=== PATIENT | female | born 1965 | race Caucasian/White ===

== ENCOUNTER 2020-10-12 19:08 | Inpatient (IN) | payer MEDICAID, OTHER, SELFPAY ==
[2020-10-12 19:28] VITALS: BP 132/76; BP 140/85; PULSE 85; PULSE 87; RESP 16; TEMP 36.9; O2SAT 99; BMI 28.3
--- NOTE | 2020-10-12 19:59 | ECG_ITS ---
Test Reason : OVERDOSE Blood Pressure : / mmHG Vent. Rate : 081 BPM Atrial Rate : 081 BPM P-R Int : 114 ms QRS Dur : 088 ms QT Int : 400 ms P-R-T Axes : 039 040 015 degrees QTc Int : 464 ms Normal sinus rhythm Normal ECG When compared with ECG of 20-AUG-2020 09:46, Nonspecific T wave abnormality, improved in Lateral leads Referred By: Leroy Andrews Electronically Signed By:DANE GOLDMAN MD
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
[2020-10-12 20:26] LABS: MANUAL DIFF FLAG NO
[2020-10-12 20:34] LABS: Glucose Urine UA NEG (NEG); Leukocyte Esterase Urine NEG (NEG); Nitrite Urine NEG (NEG); PH 5.5 (5.0-8.0); Urine Blood 3+ (NEG); Urine Ketones NEG (NEG); Urine Protein NEG (NEG-TRACE)
[2020-10-12 20:35] LABS: Appearance Urine HAZY; Color Urine YELLOW
[2020-10-12 20:36] LABS: UPreg QC Valid YES; Urine Pregnancy NEGATIVE (NEGATIVE)
[2020-10-12 20:37] LABS: Basophils Percent Auto 0.2 % (0-2); Eosinophils Percent Auto 0.6 % (0-4); Hematocrit 33.8 % (37-47); Hemoglobin 10.8 g/dl (12.0-16.0); Imm Gran Abs Auto 0.04 X10*3/uL (0.00-0.03); Imm Gran Pct Auto 0.8 % (0.0-0.4); Lymphocytes Absolute Auto 1.8 X10*3/uL (1.2-4.9); Lymphocytes Percent Auto 34.3 % (20-40); Mean Corpuscular Hemoglobin 29.6 pg (27.0-33.0); Mean Corpuscular Volume 92.6 fL (80-98); Mean Platelet Volume 10.3 fL (9.4-12.3); Monocytes Absolute Auto 0.4 X10*3/uL (0.1-1.2); Monocytes Percent Auto 8.3 % (2-11); Neutrophils Percent Auto 55.8 % (45-73); Platelet Count 205 X10*3/uL (160-400); Red Blood Count 3.65 X10*6/uL (4.20-5.50); Red Cell Distribution Width 13.4 % (11.0-16.0); White Blood Count 5.3 X10*3/uL (4.8-10.8)
[2020-10-12 20:39] LABS: COVID-19 Test Negative (Negative); IDNOW Serial# 9DD0AD1C
[2020-10-12 20:41] LABS: Bacteria Urine TRACE /LPF; RBC Urine 50-75 /HPF (0); Squamous Epithelial Cell Urine TRACE /LPF; WBC Urine 0 /HPF (0-4)
[2020-10-12 20:54] LABS: Ethanol < 10 mg/dL
[2020-10-12 20:54] LABS: Amphetamine Screen Urine Not Detected (Not Detect); Barbiturates, Urine Not Detected (Not Detect); Benzodiazepines Screen Urine Not Detected (Not Detect); Cannabinoid Screen Urine Not Detected (Not Detect); Cocaine Screen Urine Not Detected (Not Detect); Opiate Screen Urine Not Detected (Not Detect); Phencyclidine Screen Urine Not Detected (Not Detect)
[2020-10-12 20:57] LABS: Acetaminophen LAB < 1 mcg/mL (<30); Alanine Aminotransferase 25 U/L (0-31); Albumin Level 4.3 g/dL (3.5-5.0); Alkaline Phosphatase 80 U/L (39-117); Anion Gap 12 (12-20); Aspartate Amino Transferase 28 U/L (5-31); Bilirubin Direct < 0.2 mg/dL (0.0-0.5); Bilirubin Total 0.4 mg/dL (0.0-1.0); Blood Urea Nitrogen 6 mg/dL (9-16); Calcium 8.4 mg/dL (8.4-10.2); Carbon Dioxide 27 mmol/L (22-29); Chloride 105 mmol/L (96-108); Creatinine Clr Calc Pharmacy 93.6; Estimated Glomerular Filt Rate > 60; Glucose Random 106 mg/dL (60-115); Lipase 13 U/L (8-78); Potassium 4.3 mmol/l (3.3-5.1); Salicylate < 5.0 mg/dL (15-30); Sodium 140 mmol/L (135-145); Total Protein 8.1 g/dL (6.5-8.0)
[2020-10-12 21:53] VITALS: BP 112/71; PULSE 74; RESP 17; O2SAT 98
[2020-10-12 22:00] VITALS: RESP 17
[2020-10-12] MEDS: QUEtiapine Fumarate 400 MG TABLET PO (23:17)
--- NOTE | 2020-10-12 23:34 | PC.NURSE ---
Patient in bed resting, compliant with HS PO medication, denied distress, was out of room for bathroom use earlier, will continue to monitor.
--- NOTE | 2020-10-12 23:47 | PC.NURSE ---
[facility] called and spoke with Sheron who confirmed receipt of the referral, no eta at this time, Care team called/notified that they might see the patient if [facility]N dont come, will continue to monitor.
[2020-10-13] VITALS (8 sets, daily range): BP systolic 107–136; BP diastolic 52–82; PULSE 70–85; RESP 15–20; TEMP 36.3–36.9; O2SAT 96–99
--- NOTE | 2020-10-13 00:32 | MHC.CARE ---
CARE Team speaks with VIDA Lyons supervisor farm equipment maintenance. No clinician is available tonight and pt will be seen in the morning. CARE Team unable to see.
--- NOTE | 2020-10-13 01:16 | PC.NURSE ---
Patient in bed appears sleeping, no distress observed/reported, respiration +/=/non-labored bilaterally, will continue to monitor.
--- NOTE | 2020-10-13 05:00 | PC.NURSE ---
LATE ENTRY Pt comes from home via EMS for SI. Pt only speak Turkish, and staff technologist was used for triage and assessment. Pt had a plan with overdose of her current medication. Took ? 2-3 tablets of Klonopin 1 mg PO,, and seroquel 400 mg. Immediate 1:1 sittAt arrival, pt was drowsy and c/o headache. EKG done. Called poison control center for guideline. 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 MD made aware. All the w/u done around 2100, and pt status changed to medically cleared. Pt walked to the behavioral health pod with steady gait. pt brought klonopin and seroquel. All meds are locked up in pharmacy. Faxed to [facility] for consult, and [facility] received the fax. Awaiting to be seen and evulated by [facility]. Will continue to monitor.
--- NOTE | 2020-10-13 07:31 | PC.NURSE ---
Report received from DEE Schrader. Pt resting, resp unlabored.
[2020-10-13] MEDS: clonazePAM 1 MG TABLET PO ×3 (08:24→20:49)
--- NOTE | 2020-10-13 08:33 | PC.NURSE ---
[facility]N in to evaluate pt.
[2020-10-13] MEDS: Levothyroxine Sodium 25 MCG TABLET PO (09:00)
--- NOTE | 2020-10-13 09:49 | PC.NURSE ---
Pt assessed w/ scheduling agent present. Pt reports she is having 'bad thoughts' but states she can come to staff if she feels she needs help or is unsafe. Pt reports generalized pain, states she has her menses. Pt also requesting a dietary supplement, states she has no appetite at this time.
[2020-10-13] MEDS: Acetaminophen 325 MG TABLET 650 MG PO (09:58)
--- NOTE | 2020-10-13 13:19 | PC.NURSE ---
Pt resting, resp unlabored.
--- NOTE | 2020-10-13 17:48 | PC.NURSE ---
Pt awake, out of bed briefly to request snack. Affect depressed. No concerns reported.
--- NOTE | 2020-10-13 18:12 | PC.NURSE ---
Pt resting in room, no concerns reported.
--- NOTE | 2020-10-13 19:31 | PC.NURSE ---
Patient in bed appears resting, no distress observed/reported, was up briefly for bathroom use and back to bed, will continue to monitor.
[2020-10-13] MEDS: QUEtiapine Fumarate 200 MG TABLET PO (20:49)
[2020-10-13] MEDS: QUEtiapine Fumarate 400 MG TABLET PO (20:49)
--- NOTE | 2020-10-13 20:58 | PC.NURSE ---
Patient in her room, quiet and calm, compliant with HS PO medication and Vital sings assessment, denied distress, will continue to monitor.
[2020-10-14] VITALS (9 sets, daily range): BP systolic 99–133; BP diastolic 58–86; PULSE 63–98; RESP 18–20; TEMP 36.1–36.8; O2SAT 95–98
--- NOTE | 2020-10-14 01:36 | PC.NURSE ---
Patient in bed appears sleeping, no distress observed/reported, respiration +/=/non-labored bilaterally, will continue to monitor.
--- NOTE | 2020-10-14 07:14 | PC.NURSE ---
Report received from DEE Schrader. Pt awake, resting in bed, affect even.
[2020-10-14] MEDS: Levothyroxine Sodium 25 MCG TABLET PO (09:15)
[2020-10-14] MEDS: clonazePAM 1 MG TABLET PO ×3 (09:15→20:27)
--- NOTE | 2020-10-14 09:22 | PC.NURSE ---
Pt given AM medications- requested to shower- residential case manager called but arrived while pt was showering.
[2020-10-14] MEDS: Acetaminophen 325 MG TABLET 650 MG PO (12:20)
--- NOTE | 2020-10-14 12:21 | PC.NURSE ---
Pt assessed w/ cyber operator present. Pt reports she is feeling a little better physuically but reports continued depression, no change. Pt denies any other concerns at this time.
--- NOTE | 2020-10-14 15:43 | XR_ITS ---
EXAMINATION: THORACIC AND LUMBAR SPINE CLINICAL INFORMATION: Upper and lower back pain without trauma COMPARISON: Chest radiograph 06/26/2020 TECHNIQUE: 3 views lumbosacral spine, 2 views thoracic spine FINDINGS: Thoracic spine: The thoracic spine appears normal. Disc spaces are well maintained. No compression fractures are seen. No bony destructive lesions are seen. The visualized paraspinal soft tissues appear normal. Lumbar spine: Mild spondylitic changes are present with some endplate sclerosis and osteophytes involving L2-L5. Disc spaces are well preserved. No bony destructive lesions are seen. Multiple linear metallic densities are seen overlying the mid and lower right abdomen on the AP image which are not seen on the lateral image. Please correlate with surgical history and external objects. XR/XR thoracic spine 2V IMPRESSION: A cause for the patient's acute upper lower back pain has not been found. Mild degenerative changes in the lumbosacral spine as described above.
--- NOTE | 2020-10-14 15:43 | PC.NURSE ---
Pt reporting upper back pain, states she has a 'hair pin' that she inserted many years, states that the pain has increased in the past 2 months. A Myriam in to evaluate. Trans Router present.
--- NOTE | 2020-10-14 16:22 | XR_ITS ---
EXAMINATION: THORACIC AND LUMBAR SPINE CLINICAL INFORMATION: Upper and lower back pain without trauma COMPARISON: Chest radiograph 06/26/2020 TECHNIQUE: 3 views lumbosacral spine, 2 views thoracic spine FINDINGS: Thoracic spine: The thoracic spine appears normal. Disc spaces are well maintained. No compression fractures are seen. No bony destructive lesions are seen. The visualized paraspinal soft tissues appear normal. Lumbar spine: Mild spondylitic changes are present with some endplate sclerosis and osteophytes involving L2-L5. Disc spaces are well preserved. No bony destructive lesions are seen. Multiple linear metallic densities are seen overlying the mid and lower right abdomen on the AP image which are not seen on the lateral image. Please correlate with surgical history and external objects. XR/XR lumbar spine 2-3V IMPRESSION: A cause for the patient's acute upper lower back pain has not been found. Mild degenerative changes in the lumbosacral spine as described above.
[2020-10-14] MEDS: Ketorolac Tromethamine 60 MG/2 ML VIAL IM (16:42)
--- NOTE | 2020-10-14 17:09 | PC.NURSE ---
Late entry: while pt was being evaluated by [facility] she reported pain in upper back, lower right flank area. Stated that she had a hair pin in her back. A Myriam in to evaluate, pt then to xray. Received pain medication as ordered. Educated re: xray and pain medication w/ project designer present.
--- NOTE | 2020-10-14 19:14 | PC.NURSE ---
Patient in bed, lying, quiet and calm, pt was up briefly for bathroom use and back, no distress observed/reported at this time. per report patient had decent shift. will continue to monitor
[2020-10-14] MEDS: QUEtiapine Fumarate 400 MG TABLET PO (20:27)
[2020-10-14] MEDS: QUEtiapine Fumarate 200 MG TABLET PO (20:27)
[2020-10-15 06:41] VITALS: BP 112/68; PULSE 69; RESP 16; TEMP 36.4; O2SAT 99
[2020-10-15] MEDS: clonazePAM 1 MG TABLET PO ×3 (08:57→21:14)
[2020-10-15] MEDS: Levothyroxine Sodium 25 MCG TABLET PO (09:02)
[2020-10-15 09:23] VITALS: BP 128/79; PULSE 69; RESP 18; TEMP 37.1; O2SAT 99
--- NOTE | 2020-10-15 15:52 | PC.NURSE ---
Report received. Pt currently using the bathroom, no complaints at this time. Calm and cooperative.
[2020-10-15 16:11] VITALS: BP 120/78; PULSE 78; RESP 18; TEMP 36.9; O2SAT 99
--- NOTE | 2020-10-15 17:38 | PC.NURSE ---
Pt resting in bed at current, no complaints at this time. Calm and cooperative.
[2020-10-15] MEDS: Acetaminophen 325 MG TABLET 650 MG PO (17:58)
--- NOTE | 2020-10-15 19:10 | PC.NURSE ---
Report received. PT is sleeping in bed. Breathing is even and unlabored. Inpatient bed search in progress.
[2020-10-15 20:23] VITALS: BP 127/79; PULSE 68; RESP 20; TEMP 36.8; O2SAT 97
[2020-10-15] MEDS: QUEtiapine Fumarate 200 MG TABLET PO (21:14)
[2020-10-15] MEDS: QUEtiapine Fumarate 400 MG TABLET PO (21:14)
--- NOTE | 2020-10-16 07:02 | PC.NURSE ---
Report recieved. PT currently sleeping respirations even and unlabored, in no apparent distress. PT is inpatient bedsearch.
[2020-10-16 07:05] VITALS: BP 100/63; PULSE 72; RESP 18; TEMP 36.5; O2SAT 95
[2020-10-16] MEDS: clonazePAM 1 MG TABLET PO ×3 (09:09→20:10)
[2020-10-16] MEDS: Levothyroxine Sodium 25 MCG TABLET PO (09:13)
[2020-10-16 09:43] VITALS: BP 117/82; PULSE 78; RESP 18; TEMP 36.7; O2SAT 96
[2020-10-16 16:28] VITALS: BP 128/68; PULSE 73; RESP 16; TEMP 36.9; O2SAT 97
[2020-10-16 18:00] VITALS: BP 154/81; PULSE 96; TEMP 36.6
[2020-10-16] MEDS: Acetaminophen 325 MG TABLET 650 MG PO (19:09)
[2020-10-16] MEDS: Magnesium Hydrox/Alum Hydrox 30 ML ORAL.SUSP PO (19:10)
--- NOTE | 2020-10-16 19:15 | PC.ADMIT ---
pt is a 54 year old, Welsh speaking Israeli female who presented to from [facility] at approx 1800 on a cv status. pt is covid -. utox- Pt is known to . Pt was brought to ED by ambulance from home after she reported to her daughter that she overdosed on medications. Pt said that she took 400mg of Seroquel and one to two extra Clonazepam. Pt does not have any outpatient services. She was calm and cooperative during admit. She reported that she was hearing voices to harm herself. pt diagnosed with bipolar disorder. pt had superficial scrapes on LT outter forearm that do not need any dressings.Dr Aldana called for orders and notified on admission. PT is on 15min safety checks. Pt reported that she did not want any dinner and was preoccupied with wanting to call family members. pt denied pain, had clear thought. Start treatment plan and monitor for safety
[2020-10-16] MEDS: QUEtiapine Fumarate 400 MG TABLET PO (20:10)
[2020-10-16] MEDS: QUEtiapine Fumarate 200 MG TABLET PO (20:10)
[2020-10-17 06:45] VITALS: BP 112/64; PULSE 74; RESP 18; TEMP 36.7
[2020-10-17] MEDS: Levothyroxine Sodium 25 MCG TABLET PO (08:16)
[2020-10-17] MEDS: clonazePAM 1 MG TABLET PO ×3 (08:18→20:21)
[2020-10-17 08:38] LABS: Estimated Average Glucose 103 mg/dL; Hemoglobin A1c % 5.2 %
[2020-10-17 09:13] LABS: Cholesterol 209 mg/dL; HDL Cholesterol 57 mg/dL; LDL Cholesterol Calculated 135 mg/dl; Triglycerides 85 mg/dL
[2020-10-17] MEDS: QUEtiapine Fumarate 100 MG TABLET PO (10:50)
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
[2020-10-17 18:00] VITALS: BP 144/75; PULSE 77; TEMP 36.2
[2020-10-17 20:20] VITALS: BP 144/75; PULSE 77
[2020-10-17] MEDS: cloNIDine HCL 0.1 MG TABLET PO (20:20)
[2020-10-17] MEDS: QUEtiapine Fumarate 400 MG TABLET PO (20:20)
[2020-10-17] MEDS: QUEtiapine Fumarate 200 MG TABLET PO (20:21)
[2020-10-18 08:35] VITALS: BP 116/70; PULSE 75; TEMP 37.1; O2SAT 100
[2020-10-18 08:45] VITALS: BP 117/70; PULSE 75
[2020-10-18] MEDS: Levothyroxine Sodium 25 MCG TABLET PO (08:45)
[2020-10-18] MEDS: cloNIDine HCL 0.1 MG TABLET PO ×3 (08:45→20:50)
[2020-10-18] MEDS: QUEtiapine Fumarate 100 MG TABLET PO (08:45)
[2020-10-18] MEDS: clonazePAM 1 MG TABLET PO ×3 (08:45→20:50)
[2020-10-18 09:17] VITALS: BMI 30.9
--- NOTE | 2020-10-18 13:22 | P.PNPSI_ITS ---
Subjective Subjective Date of Service: 10/18/20 Reason For Visit: Overdose Subjective Notes: Conditional Voluntary Interim History: Paulo is content and keeping to herself. She is polite and cooperative. She reports that she would like to leave on 10/23/20, since she will get her check then and she wants to go to [place]. Medication Compliance: Yes Side effects from medications: No Attending Groups: No Review of Systems Acute medical concerns: No Medical Review of Systems: unchanged Mental Status Exam Mental Status Exam Narrative: Seen with an it infrastructure consultant Patient Appearance: Well Grooomed Patient Orientation: Person, Place and Time Level of Consciousness: Awake Patient Behavior: Appropriate Mood Description: Calm Affect Description: Calm and Withdrawn Patient Cognition Impaired: No Ability to Follow Directions: Good Speech Pattern: Clear Memory Description: Intact Hallucinations: None Delusions: Not Present Thought Process: Intact Thought Content: negative for Suicidal Ideation and negative for Homicidal Ideation Judgement: Fair Diagnostics Vital Signs (24Hr): Vital Signs - 24 hr 10/17/20 18:00 10/17/20 20:20 10/18/20 08:35 Temperature 97.1 F 98.8 F Pulse Rate 77 77 75 Blood Pressure 144/75 H 144/75 H 116/70 Pulse Oximetry 100 10/18/20 08:45 Temperature Pulse Rate 75 Blood Pressure 117/70 Pulse Oximetry Body Mass Index 30.9 Labs Results: 10/12/20 20:16 10/12/20 20:15 Labs: Laboratory Results - last 48 hr 10/17/20 10/17/20 08:00 08:00 Estimat Average Glucose 103 Hemoglobin A1c % 5.2 Triglycerides 85 Cholesterol 209 LDL Cholesterol, Calc 135 HDL Cholesterol 57 Imaging Radiology Impressions: ITS Impressions Thoracic Spine X-Ray 10/14/20 15:43 IMPRESSION: A cause for the patient's acute upper lower back pain has not been found. Mild degenerative changes in the lumbosacral spine as described above. Lumbar Spine X-Ray 10/14/20 16:22 IMPRESSION: A cause for the patient's acute upper lower back pain has not been found. Mild degenerative changes in the lumbosacral spine as described above. Medications Medications Current Medications Generic Name Dose Route Start Last Admin Trade Name Freq PRN Reason Stop Dose Admin Acetaminophen 650 mg 10/16/20 17:40 10/16/20 19:09 Acetaminophen 325 Mg Tablet PO 650 mg Q6H PRN Administration Headache/Pain Mild Scale (1-3) Al Hydroxide/Mg Hydroxide 30 ml 10/16/20 17:40 10/16/20 19:10 Magnesium Hydrox/Alum Hydrox 30 Ml Oral.Susp PO 30 ml Q6H PRN Administration Heartburn/Nausea Clonazepam 1 mg 10/13/20 09:00 10/18/20 08:45 Clonazepam 1 Mg Tablet PO 1 mg TID ALEKSANDRA Administration Clonidine HCl 0.1 mg 10/18/20 09:00 10/18/20 08:45 Clonidine Hcl 0.1 Mg Tablet PO 0.1 mg TID ALEKSANDRA Administration Protocol Hydroxyzine HCl 25 mg 10/16/20 17:40 Hydroxyzine Hcl 25 Mg Tablet PO BEDTIME PRN Anxiety Levothyroxine Sodium 25 mcg 10/13/20 09:00 10/18/20 08:45 Levothyroxine Sodium 25 Mcg Tablet PO 25 mcg DAILY ALEKSANDRA Administration Magnesium Hydroxide 30 ml 10/16/20 17:40 Milk Of Magnesia 30 Ml Oral.Susp PO DAILY PRN Constipation Nicotine Polacrilex 4 mg 10/16/20 17:40 Nicotine Polacrilex 2 Mg Gum BUCCAL Q2H PRN Nicotine Cravings Quetiapine Fumarate 200 mg 10/13/20 21:00 10/17/20 20:21 Quetiapine Fumarate 200 Mg Tablet PO 200 mg BEDTIME ALEKSANDRA Administration Quetiapine Fumarate 400 mg 10/12/20 22:15 10/17/20 20:20 Quetiapine Fumarate 400 Mg Tablet PO 400 mg BEDTIME ALEKSANDRA Administration Quetiapine Fumarate 100 mg 10/17/20 10:35 10/18/20 08:45 Quetiapine Fumarate 100 Mg Tablet PO 100 mg DAILY ALEKSANDRA Administration Trazodone HCl 50 mg 10/16/20 17:40 Trazodone Hcl 50 Mg Tablet PO BEDTIME PRN Insomnia Allergies Allergies Allergy/AdvReac Type Severity Reaction Status Date / Time haloperidol [From HALDOL] Allergy Unknown STROKE Verified 10/12/20 19:32 Assessment & Plan Assessment & Plan (1) Chronic post-traumatic stress disorder (PTSD): Status: Acute Code(s): F43.12 - Post-traumatic stress disorder, chronic Assessment and Plan: CT current treatment plan Greater than 50% of the session was spent on counseling and/or coordination of care Patient educated on: diagnosis, medication risk/benefits and substance abuse Informed Consent: further education needed Reason for contiued inpatient stay Substantial Risk for: rapid decompensation
[2020-10-18 14:11] VITALS: BP 117/70; PULSE 75
[2020-10-18] MEDS: Acetaminophen 325 MG TABLET 650 MG PO (16:30)
[2020-10-18 17:10] VITALS: BP 132/62; PULSE 69; TEMP 36.7
[2020-10-18] MEDS: QUEtiapine Fumarate 200 MG TABLET PO (20:49)
[2020-10-18] MEDS: QUEtiapine Fumarate 400 MG TABLET PO (20:49)
[2020-10-18 20:50] VITALS: BP 132/62; PULSE 69
[2020-10-19 08:13] VITALS: BP 95/68; PULSE 75; RESP 16; TEMP 36.6; O2SAT 97
[2020-10-19 08:39] VITALS: BP 95/68; PULSE 75
[2020-10-19] MEDS: clonazePAM 1 MG TABLET PO ×3 (08:39→20:22)
[2020-10-19] MEDS: Levothyroxine Sodium 25 MCG TABLET PO (08:39)
[2020-10-19] MEDS: cloNIDine HCL 0.1 MG TABLET PO ×3 (08:39→20:22)
[2020-10-19] MEDS: QUEtiapine Fumarate 100 MG TABLET PO (08:40)
[2020-10-19 14:38] VITALS: BP 95/68; PULSE 75
[2020-10-19] MEDS: Magnesium Hydrox/Alum Hydrox 30 ML ORAL.SUSP PO (14:38)
--- NOTE | 2020-10-19 14:51 | P.PNPSI_ITS ---
Subjective Subjective Date of Service: 10/19/20 Reason For Visit: Overdose Subjective Notes: Conditional Voluntary Interim History: Paulo complained of some general aches and pains but was otherwise doing well. She has no immediate concerns. Medication Compliance: Yes Side effects from medications: No Attending Groups: No Review of Systems Acute medical concerns: No Medical Review of Systems: unchanged Mental Status Exam Mental Status Exam Narrative: Seen with an division human resources manager Patient Appearance: Well Grooomed Patient Orientation: Person, Place and Time Level of Consciousness: Awake Patient Behavior: Appropriate Mood Description: Calm Affect Description: Calm and Withdrawn Patient Cognition Impaired: No Ability to Follow Directions: Good Speech Pattern: Clear Memory Description: Intact Hallucinations: None Delusions: Not Present Thought Process: Intact Thought Content: negative for Suicidal Ideation and negative for Homicidal Ideation Judgement: Fair Diagnostics Vital Signs (24Hr): Vital Signs - 24 hr 10/18/20 17:10 10/18/20 20:50 10/19/20 08:13 Temperature 98.0 F 97.8 F Pulse Rate 69 69 75 Respiratory Rate 16 Blood Pressure 132/62 132/62 95/68 Pulse Oximetry 97 10/19/20 08:39 10/19/20 14:38 Temperature Pulse Rate 75 75 Respiratory Rate Blood Pressure 95/68 95/68 Pulse Oximetry Body Mass Index 30.9 Labs Results: 10/12/20 20:16 10/12/20 20:15 Imaging Radiology Impressions: ITS Impressions Thoracic Spine X-Ray 10/14/20 15:43 IMPRESSION: A cause for the patient's acute upper lower back pain has not been found. Mild degenerative changes in the lumbosacral spine as described above. Lumbar Spine X-Ray 10/14/20 16:22 IMPRESSION: A cause for the patient's acute upper lower back pain has not been found. Mild degenerative changes in the lumbosacral spine as described above. Medications Medications Current Medications Generic Name Dose Route Start Last Admin Trade Name Freq PRN Reason Stop Dose Admin Acetaminophen 650 mg 10/16/20 17:40 10/18/20 16:30 Acetaminophen 325 Mg Tablet PO 650 mg Q6H PRN Administration Headache/Pain Mild Scale (1-3) Al Hydroxide/Mg Hydroxide 30 ml 10/16/20 17:40 10/19/20 14:38 Magnesium Hydrox/Alum Hydrox 30 Ml Oral.Susp PO 30 ml Q6H PRN Administration Heartburn/Nausea Clonazepam 1 mg 10/13/20 09:00 10/19/20 14:38 Clonazepam 1 Mg Tablet PO 1 mg TID ALEKSANDRA Administration Clonidine HCl 0.1 mg 10/18/20 09:00 10/19/20 14:38 Clonidine Hcl 0.1 Mg Tablet PO 0.1 mg TID ALEKSANDRA Administration Protocol Hydroxyzine HCl 25 mg 10/16/20 17:40 Hydroxyzine Hcl 25 Mg Tablet PO BEDTIME PRN Anxiety Ibuprofen 600 mg 10/19/20 11:24 Ibuprofen 600 Mg Tablet PO Q6H PRN Pain, Moderate (Pain Scale 4-6 Levothyroxine Sodium 25 mcg 10/13/20 09:00 10/19/20 08:39 Levothyroxine Sodium 25 Mcg Tablet PO 25 mcg DAILY ALEKSANDRA Administration Magnesium Hydroxide 30 ml 10/16/20 17:40 Milk Of Magnesia 30 Ml Oral.Susp PO DAILY PRN Constipation Nicotine Polacrilex 4 mg 10/16/20 17:40 Nicotine Polacrilex 2 Mg Gum BUCCAL Q2H PRN Nicotine Cravings Quetiapine Fumarate 200 mg 10/13/20 21:00 10/18/20 20:49 Quetiapine Fumarate 200 Mg Tablet PO 200 mg BEDTIME ALEKSANDRA Administration Quetiapine Fumarate 400 mg 10/12/20 22:15 10/18/20 20:49 Quetiapine Fumarate 400 Mg Tablet PO 400 mg BEDTIME ALEKSANDRA Administration Quetiapine Fumarate 100 mg 10/17/20 10:35 10/19/20 08:40 Quetiapine Fumarate 100 Mg Tablet PO 100 mg DAILY ALEKSANDRA Administration Trazodone HCl 50 mg 10/16/20 17:40 Trazodone Hcl 50 Mg Tablet PO BEDTIME PRN Insomnia Allergies Allergies Allergy/AdvReac Type Severity Reaction Status Date / Time haloperidol [From HALDOL] Allergy Unknown STROKE Verified 10/12/20 19:32 Assessment & Plan Assessment & Plan (1) Chronic post-traumatic stress disorder (PTSD): Status: Acute Code(s): F43.12 - Post-traumatic stress disorder, chronic Assessment and Plan: CT current treatment plan Greater than 50% of the session was spent on counseling and/or coordination of care Patient educated on: diagnosis, medication risk/benefits and substance abuse Informed Consent: further education needed Reason for contiued inpatient stay Substantial Risk for: rapid decompensation
[2020-10-19] MEDS: Ibuprofen 600 MG TABLET PO (15:58)
[2020-10-19 18:00] VITALS: BP 114/65; PULSE 75; TEMP 37.1
[2020-10-19 20:22] VITALS: BP 114/65; PULSE 75
[2020-10-19] MEDS: QUEtiapine Fumarate 200 MG TABLET PO (20:22)
[2020-10-19] MEDS: QUEtiapine Fumarate 400 MG TABLET PO (20:22)
[2020-10-20 06:25] VITALS: BP 102/52; PULSE 62; RESP 16; TEMP 36.1; O2SAT 96
[2020-10-20 08:17] VITALS: BP 103/63; PULSE 71
[2020-10-20] MEDS: QUEtiapine Fumarate 100 MG TABLET PO (08:17)
[2020-10-20] MEDS: cloNIDine HCL 0.1 MG TABLET PO ×2 (08:17→20:23)
[2020-10-20] MEDS: clonazePAM 1 MG TABLET PO ×2 (08:17→20:22)
[2020-10-20] MEDS: Levothyroxine Sodium 25 MCG TABLET PO (08:17)
--- NOTE | 2020-10-20 10:44 | HO.PSYCHPN ---
Subjective Subjective Date of Service: 10/20/20 Reason For Visit: Overdose Subjective Notes: Conditional Voluntary Interim History: Paulo is staying in her room much of the time. She has no immediate concerns. She continues to assert that she is going to move to [place]. She was complaining of N and V but this is resolving. She has no acute symptoms Medication Compliance: Yes Side effects from medications: No Attending Groups: No Review of Systems Acute medical concerns: No Medical Review of Systems: unchanged Mental Status Exam Mental Status Exam Narrative: Seen with an calibration technician Patient Appearance: Well Grooomed Patient Orientation: Person, Place and Time Level of Consciousness: Awake Patient Behavior: Appropriate Mood Description: Calm Affect Description: Calm and Withdrawn Patient Cognition Impaired: No Ability to Follow Directions: Good Speech Pattern: Clear Memory Description: Intact Hallucinations: None Delusions: Not Present Thought Process: Intact Thought Content: negative for Suicidal Ideation and negative for Homicidal Ideation Judgement: Fair Diagnostics Vital Signs (24Hr): Vital Signs - 24 hr 10/19/20 14:38 10/19/20 18:00 10/19/20 20:22 Temperature 98.8 F Pulse Rate 75 75 75 Respiratory Rate Blood Pressure 95/68 114/65 114/65 Pulse Oximetry 10/20/20 06:25 10/20/20 08:17 Temperature 96.9 F Pulse Rate 62 71 Respiratory Rate 16 Blood Pressure 102/52 L 103/63 Pulse Oximetry 96 Body Mass Index 30.9 Labs Results: 10/12/20 20:16 10/12/20 20:15 Imaging Radiology Impressions: ITS Impressions Thoracic Spine X-Ray 10/14/20 15:43 IMPRESSION: A cause for the patient's acute upper lower back pain has not been found. Mild degenerative changes in the lumbosacral spine as described above. Lumbar Spine X-Ray 10/14/20 16:22 IMPRESSION: A cause for the patient's acute upper lower back pain has not been found. Mild degenerative changes in the lumbosacral spine as described above. Medications Medications Current Medications Generic Name Dose Route Start Last Admin Trade Name Freq PRN Reason Stop Dose Admin Acetaminophen 650 mg 10/16/20 17:40 10/18/20 16:30 Acetaminophen 325 Mg Tablet PO 650 mg Q6H PRN Administration Headache/Pain Mild Scale (1-3) Al Hydroxide/Mg Hydroxide 30 ml 10/16/20 17:40 10/19/20 14:38 Magnesium Hydrox/Alum Hydrox 30 Ml Oral.Susp PO 30 ml Q6H PRN Administration Heartburn/Nausea Clonazepam 1 mg 10/13/20 09:00 10/20/20 08:17 Clonazepam 1 Mg Tablet PO 1 mg TID ALEKSANDRA Administration Clonidine HCl 0.1 mg 10/18/20 09:00 10/20/20 08:17 Clonidine Hcl 0.1 Mg Tablet PO 0.1 mg TID ALEKSANDRA Administration Protocol Hydroxyzine HCl 25 mg 10/16/20 17:40 Hydroxyzine Hcl 25 Mg Tablet PO BEDTIME PRN Anxiety Ibuprofen 600 mg 10/19/20 11:24 10/19/20 15:58 Ibuprofen 600 Mg Tablet PO 600 mg Q6H PRN Administration Pain, Moderate (Pain Scale 4-6 Levothyroxine Sodium 25 mcg 10/13/20 09:00 10/20/20 08:17 Levothyroxine Sodium 25 Mcg Tablet PO 25 mcg DAILY ALEKSANDRA Administration Magnesium Hydroxide 30 ml 10/16/20 17:40 Milk Of Magnesia 30 Ml Oral.Susp PO DAILY PRN Constipation Nicotine Polacrilex 4 mg 10/16/20 17:40 Nicotine Polacrilex 2 Mg Gum BUCCAL Q2H PRN Nicotine Cravings Quetiapine Fumarate 200 mg 10/13/20 21:00 10/19/20 20:22 Quetiapine Fumarate 200 Mg Tablet PO 200 mg BEDTIME ALEKSANDRA Administration Quetiapine Fumarate 400 mg 10/12/20 22:15 10/19/20 20:22 Quetiapine Fumarate 400 Mg Tablet PO 400 mg BEDTIME ALEKSANDRA Administration Quetiapine Fumarate 100 mg 10/17/20 10:35 10/20/20 08:17 Quetiapine Fumarate 100 Mg Tablet PO 100 mg DAILY ALEKSANDRA Administration Trazodone HCl 50 mg 10/16/20 17:40 Trazodone Hcl 50 Mg Tablet PO BEDTIME PRN Insomnia Allergies Allergies Allergy/AdvReac Type Severity Reaction Status Date / Time haloperidol [From HALDOL] Allergy Unknown STROKE Verified 10/12/20 19:32 Assessment & Plan Assessment & Plan (1) Chronic post-traumatic stress disorder (PTSD): Status: Acute Code(s): F43.12 - Post-traumatic stress disorder, chronic Assessment and Plan: CT current treatment plan Greater than 50% of the session was spent on counseling and/or coordination of care Patient educated on: diagnosis and medication risk/benefits Informed Consent: further education needed Reason for contiued inpatient stay Substantial Risk for: rapid decompensation
[2020-10-20 18:00] VITALS: BP 131/72; PULSE 70; TEMP 36.7
[2020-10-20] MEDS: QUEtiapine Fumarate 400 MG TABLET PO (20:22)
[2020-10-20] MEDS: QUEtiapine Fumarate 200 MG TABLET PO (20:22)
[2020-10-20 20:23] VITALS: BP 131/72; PULSE 70
[2020-10-21 08:53] VITALS: BP 117/76; PULSE 82
[2020-10-21] MEDS: cloNIDine HCL 0.1 MG TABLET PO ×3 (08:53→20:18)
[2020-10-21] MEDS: Levothyroxine Sodium 25 MCG TABLET PO (08:53)
[2020-10-21] MEDS: clonazePAM 1 MG TABLET PO ×3 (08:53→20:18)
[2020-10-21] MEDS: QUEtiapine Fumarate 100 MG TABLET PO (08:53)
[2020-10-21 10:03] VITALS: TEMP 36.9; O2SAT 97
--- NOTE | 2020-10-21 12:57 | HO.PSYCHPN ---
Subjective Subjective Date of Service: 10/21/20 Reason For Visit: Overdose Subjective Notes: Conditional Voluntary Interim History: Paulo continues to spend much time on her own, but when she is up and about she is in behavioral control. She has no immediate concerns. Medication Compliance: Yes Side effects from medications: No Attending Groups: No Review of Systems Acute medical concerns: No Medical Review of Systems: unchanged Mental Status Exam Mental Status Exam Narrative: Seen with an bilingual interpreter Patient Appearance: Well Grooomed Patient Orientation: Person, Place and Time Level of Consciousness: Awake Patient Behavior: Appropriate Mood Description: Calm Affect Description: Calm and Withdrawn Patient Cognition Impaired: No Ability to Follow Directions: Good Speech Pattern: Clear Memory Description: Intact Hallucinations: None Delusions: Not Present Thought Process: Intact Thought Content: negative for Suicidal Ideation and negative for Homicidal Ideation Judgement: Fair Diagnostics Vital Signs (24Hr): Vital Signs - 24 hr 10/20/20 18:00 10/20/20 20:23 10/21/20 08:53 Temperature 98.1 F Pulse Rate 70 70 82 Blood Pressure 131/72 131/72 117/76 Pulse Oximetry 10/21/20 10:03 Temperature 98.5 F Pulse Rate Blood Pressure Pulse Oximetry 97 Body Mass Index 30.9 Labs Results: 10/12/20 20:16 10/12/20 20:15 Imaging Radiology Impressions: ITS Impressions Thoracic Spine X-Ray 10/14/20 15:43 IMPRESSION: A cause for the patient's acute upper lower back pain has not been found. Mild degenerative changes in the lumbosacral spine as described above. Lumbar Spine X-Ray 10/14/20 16:22 IMPRESSION: A cause for the patient's acute upper lower back pain has not been found. Mild degenerative changes in the lumbosacral spine as described above. Medications Medications Current Medications Generic Name Dose Route Start Last Admin Trade Name Freq PRN Reason Stop Dose Admin Acetaminophen 650 mg 10/16/20 17:40 10/18/20 16:30 Acetaminophen 325 Mg Tablet PO 650 mg Q6H PRN Administration Headache/Pain Mild Scale (1-3) Al Hydroxide/Mg Hydroxide 30 ml 10/16/20 17:40 10/19/20 14:38 Magnesium Hydrox/Alum Hydrox 30 Ml Oral.Susp PO 30 ml Q6H PRN Administration Heartburn/Nausea Clonazepam 1 mg 10/13/20 09:00 10/21/20 08:53 Clonazepam 1 Mg Tablet PO 1 mg TID ALEKSANDRA Administration Clonidine HCl 0.1 mg 10/18/20 09:00 10/21/20 08:53 Clonidine Hcl 0.1 Mg Tablet PO 0.1 mg TID ALEKSANDRA Administration Protocol Hydroxyzine HCl 25 mg 10/16/20 17:40 Hydroxyzine Hcl 25 Mg Tablet PO BEDTIME PRN Anxiety Ibuprofen 600 mg 10/19/20 11:24 10/19/20 15:58 Ibuprofen 600 Mg Tablet PO 600 mg Q6H PRN Administration Pain, Moderate (Pain Scale 4-6 Levothyroxine Sodium 25 mcg 10/13/20 09:00 10/21/20 08:53 Levothyroxine Sodium 25 Mcg Tablet PO 25 mcg DAILY ALEKSANDRA Administration Magnesium Hydroxide 30 ml 10/16/20 17:40 Milk Of Magnesia 30 Ml Oral.Susp PO DAILY PRN Constipation Nicotine Polacrilex 4 mg 10/16/20 17:40 Nicotine Polacrilex 2 Mg Gum BUCCAL Q2H PRN Nicotine Cravings Quetiapine Fumarate 200 mg 10/13/20 21:00 10/20/20 20:22 Quetiapine Fumarate 200 Mg Tablet PO 200 mg BEDTIME ALEKSANDRA Administration Quetiapine Fumarate 400 mg 10/12/20 22:15 10/20/20 20:22 Quetiapine Fumarate 400 Mg Tablet PO 400 mg BEDTIME ALEKSANDRA Administration Quetiapine Fumarate 100 mg 10/17/20 10:35 10/21/20 08:53 Quetiapine Fumarate 100 Mg Tablet PO 100 mg DAILY ALEKSANDRA Administration Trazodone HCl 50 mg 10/16/20 17:40 Trazodone Hcl 50 Mg Tablet PO BEDTIME PRN Insomnia Allergies Allergies Allergy/AdvReac Type Severity Reaction Status Date / Time haloperidol [From HALDOL] Allergy Unknown STROKE Verified 10/12/20 19:32 Assessment & Plan Assessment & Plan (1) Chronic post-traumatic stress disorder (PTSD): Status: Acute Code(s): F43.12 - Post-traumatic stress disorder, chronic Assessment and Plan: CT current treatment plan Greater than 50% of the session was spent on counseling and/or coordination of care Patient educated on: diagnosis, medication risk/benefits and substance abuse Informed Consent: further education needed Reason for contiued inpatient stay Substantial Risk for: inability to function and rapid decompensation
[2020-10-21 14:53] VITALS: BP 111/63; PULSE 72
[2020-10-21 18:00] VITALS: BP 125/58; PULSE 74; TEMP 36.9
[2020-10-21 20:18] VITALS: BP 126/58; PULSE 74
[2020-10-21] MEDS: QUEtiapine Fumarate 200 MG TABLET PO (20:18)
[2020-10-21] MEDS: QUEtiapine Fumarate 400 MG TABLET PO (20:19)
[2020-10-22 06:40] VITALS: BP 118/72; PULSE 76; RESP 16; TEMP 36.4; O2SAT 99
[2020-10-22 09:47] VITALS: BP 118/72; PULSE 76
[2020-10-22] MEDS: cloNIDine HCL 0.1 MG TABLET PO ×3 (09:47→20:58)
[2020-10-22] MEDS: Levothyroxine Sodium 25 MCG TABLET PO (09:47)
[2020-10-22] MEDS: QUEtiapine Fumarate 100 MG TABLET PO (09:47)
[2020-10-22] MEDS: clonazePAM 1 MG TABLET PO ×3 (09:48→20:57)
[2020-10-22 15:23] VITALS: BP 128/69; PULSE 74
--- NOTE | 2020-10-22 16:48 | HO.PSYCHPN ---
Subjective Subjective Date of Service: 10/22/20 Reason For Visit: Overdose Interim History: THE PATIENT HAS BEEN GENERALLY CALM STATING SHE IS LOOKING TO MOVE BACK TO [place] AND WITH WHOM OTHER SHE STATES SHE HAS A PSYCHIATRIST THERE Medication Compliance: Yes Mental Status Exam Mental Status Exam Narrative: Seen with an instructor of education Patient Appearance: Well Grooomed Patient Orientation: Person, Place and Time Level of Consciousness: Awake Patient Behavior: Appropriate Mood Description: Calm Affect Description: Calm and Withdrawn Patient Cognition Impaired: No Ability to Follow Directions: Good Speech Pattern: Clear Memory Description: Intact Hallucinations: None Delusions: Not Present Thought Process: Intact Thought Content: negative for Suicidal Ideation and negative for Homicidal Ideation Judgement: Fair Diagnostics Vital Signs (24Hr): Vital Signs - 24 hr 10/21/20 18:00 10/21/20 20:18 10/22/20 06:40 Temperature 98.5 F 97.6 F Pulse Rate 74 74 76 Respiratory Rate 16 Blood Pressure 125/58 L 126/58 L 118/72 Pulse Oximetry 99 10/22/20 09:47 10/22/20 15:23 Temperature Pulse Rate 76 74 Respiratory Rate Blood Pressure 118/72 128/69 Pulse Oximetry Body Mass Index 30.9 Labs Results: 10/12/20 20:16 10/12/20 20:15 Imaging Radiology Impressions: ITS Impressions Thoracic Spine X-Ray 10/14/20 15:43 IMPRESSION: A cause for the patient's acute upper lower back pain has not been found. Mild degenerative changes in the lumbosacral spine as described above. Lumbar Spine X-Ray 10/14/20 16:22 IMPRESSION: A cause for the patient's acute upper lower back pain has not been found. Mild degenerative changes in the lumbosacral spine as described above. Medications Medications Current Medications Generic Name Dose Route Start Last Admin Trade Name Freq PRN Reason Stop Dose Admin Acetaminophen 650 mg 10/16/20 17:40 10/18/20 16:30 Acetaminophen 325 Mg Tablet PO 650 mg Q6H PRN Administration Headache/Pain Mild Scale (1-3) Al Hydroxide/Mg Hydroxide 30 ml 10/16/20 17:40 10/19/20 14:38 Magnesium Hydrox/Alum Hydrox 30 Ml Oral.Susp PO 30 ml Q6H PRN Administration Heartburn/Nausea Clonazepam 1 mg 10/22/20 15:00 10/22/20 15:23 Clonazepam 1 Mg Tablet PO 1 mg TID ALEKSANDRA Administration Clonidine HCl 0.1 mg 10/18/20 09:00 10/22/20 15:23 Clonidine Hcl 0.1 Mg Tablet PO 0.1 mg TID ALEKSANDRA Administration Protocol Hydroxyzine HCl 25 mg 10/16/20 17:40 Hydroxyzine Hcl 25 Mg Tablet PO BEDTIME PRN Anxiety Ibuprofen 600 mg 10/19/20 11:24 10/19/20 15:58 Ibuprofen 600 Mg Tablet PO 600 mg Q6H PRN Administration Pain, Moderate (Pain Scale 4-6 Levothyroxine Sodium 25 mcg 10/13/20 09:00 10/22/20 09:47 Levothyroxine Sodium 25 Mcg Tablet PO 25 mcg DAILY ALEKSANDRA Administration Magnesium Hydroxide 30 ml 10/16/20 17:40 Milk Of Magnesia 30 Ml Oral.Susp PO DAILY PRN Constipation Nicotine Polacrilex 4 mg 10/16/20 17:40 Nicotine Polacrilex 2 Mg Gum BUCCAL Q2H PRN Nicotine Cravings Quetiapine Fumarate 200 mg 10/13/20 21:00 10/21/20 20:18 Quetiapine Fumarate 200 Mg Tablet PO 200 mg BEDTIME ALEKSANDRA Administration Quetiapine Fumarate 400 mg 10/12/20 22:15 10/21/20 20:19 Quetiapine Fumarate 400 Mg Tablet PO 400 mg BEDTIME ALEKSANDRA Administration Quetiapine Fumarate 100 mg 10/17/20 10:35 10/22/20 09:47 Quetiapine Fumarate 100 Mg Tablet PO 100 mg DAILY ALEKSANDRA Administration Trazodone HCl 50 mg 10/16/20 17:40 Trazodone Hcl 50 Mg Tablet PO BEDTIME PRN Insomnia Allergies Allergies Allergy/AdvReac Type Severity Reaction Status Date / Time haloperidol [From HALDOL] Allergy Unknown STROKE Verified 10/12/20 19:32 Assessment & Plan Assessment & Plan (1) Chronic post-traumatic stress disorder (PTSD): Status: Acute Code(s): F43.12 - Post-traumatic stress disorder, chronic (2) Bipolar 1 disorder: Status: Acute Code(s): F31.9 - Bipolar disorder, unspecified Assessment and Plan: CONTINUE [place]EROQUEL PATIENT IS SEEN TO THE BACK TO [place] Greater than 50% of the session was spent on counseling and/or coordination of care Patient educated on: medication risk/benefits Informed Consent: further education needed Reason for contiued inpatient stay Substantial Risk for: harm to self and inability to function
[2020-10-22 18:00] VITALS: BP 114/66; PULSE 68; TEMP 36.7
[2020-10-22] MEDS: QUEtiapine Fumarate 200 MG TABLET PO (20:57)
[2020-10-22 20:58] VITALS: BP 114/66; PULSE 68
[2020-10-22] MEDS: Acetaminophen 325 MG TABLET 650 MG PO (21:01)
[2020-10-22] MEDS: QUEtiapine Fumarate 400 MG TABLET PO (21:11)
[2020-10-23 08:21] VITALS: BP 135/67; PULSE 77
[2020-10-23] MEDS: clonazePAM 1 MG TABLET PO ×3 (08:21→21:20)
[2020-10-23] MEDS: QUEtiapine Fumarate 100 MG TABLET PO (08:21)
[2020-10-23] MEDS: Levothyroxine Sodium 25 MCG TABLET PO (08:21)
[2020-10-23] MEDS: cloNIDine HCL 0.1 MG TABLET PO ×3 (08:21→21:19)
[2020-10-23 08:30] VITALS: TEMP 36.4
[2020-10-23 14:11] VITALS: BP 110/73; PULSE 81
[2020-10-23 15:24] LABS: COVID-19 Test Negative (Negative); IDNOW Serial# 9DD0AD1C
[2020-10-23 18:00] VITALS: BP 123/74; PULSE 75; TEMP 36.4
[2020-10-23 21:19] VITALS: BP 123/74; PULSE 75
[2020-10-23] MEDS: QUEtiapine Fumarate 200 MG TABLET PO (21:20)
[2020-10-23] MEDS: QUEtiapine Fumarate 400 MG TABLET PO (21:20)
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
[2020-10-23 23:56] LABS: TSH reflex Free T4 5.42 mIU/mL (0.32-4.0)
[2020-10-24 00:33] LABS: Free T4 (Free Thyroxine) 0.96 ng/dL (0.71-1.85)
[2020-10-24 06:05] VITALS: BP 111/56; PULSE 68; RESP 18; TEMP 36.8; O2SAT 98
[2020-10-24 08:29] VITALS: BP 111/56; PULSE 68
[2020-10-24] MEDS: QUEtiapine Fumarate 100 MG TABLET PO (08:29)
[2020-10-24] MEDS: cloNIDine HCL 0.1 MG TABLET PO (08:29)
[2020-10-24] MEDS: Levothyroxine Sodium 25 MCG TABLET PO (08:29)
[2020-10-24] MEDS: clonazePAM 1 MG TABLET PO (08:29)
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
== END 2020-10-24 11:30 | disposition home or self-care (01) | DRG 753 ==
LOC: HO.ED 10-16 16:24 → HO.PM5 10-16 17:32
PROVIDERS: Admitting Provider Psychiatry & Neurology Psychiatry; Emergency Provider Emergency Medicine; Visit Provider Psychiatry & Neurology Psychiatry
DX: F31.9 Bipolar disorder, unspecified (principal); R45.850 Homicidal ideations; E03.9 Hypothyroidism, unspecified; M54.9 Dorsalgia, unspecified; Z91.5 Personal history of self-harm; F43.12 Post-traumatic stress disorder, chronic; Z20.828 Contact with and (suspected) exposure to other viral communicable diseases; Z79.890 Hormone replacement therapy; Z79.899 Other long term (current) drug therapy
CPT/HCPCS: 36415; 72070; 72100; 80048; 80061; 80076; 80307; 80320; 81001; 81025; 83036; 83690; 84439; 84443; 85025; 87635; 90792; 93005; 96372; 99232; 99239; 99285; G0480; J1885

== ENCOUNTER 2021-04-11 12:44 | Emergency (ER) | payer MEDICAID, SELFPAY ==
--- NOTE | ~2021-04-11 | XR_ITS ---
EXAMINATION: XR CHEST CLINICAL INFORMATION: Numbness right face and arm. COMPARISON: Chest radiographs 06/26/2020 TECHNIQUE: 2 views of the chest were obtained. FINDINGS: There are low lung volumes. There is subtle coarsening of the bronchiolar markings but no airspace consolidation or definite groundglass opacity. The costophrenic sulci are clear. There is no effusion. Heart is within limits of normal size. The vascularity is normal. The hilar and mediastinal contours are unremarkable. No visible acute bony abnormality. There is bulky calcific tendinosis right shoulder. XR/XR chest 2V IMPRESSION: 1. Low lung volumes. Coarsening bronchiolar markings. 2. No airspace consolidation or effusion. 3. Calcific tendinosis right shoulder.
--- NOTE | ~2021-04-11 | CT_ITS ---
EXAMINATION: CT HEAD WITHOUT CONTRAST CLINICAL INFORMATION: Fall, altered mental status. Right facial and right arm numbness. COMPARISON: None TECHNIQUE: Contiguous axial imaging was performed from the skull base to vertex without intravenous administration of contrast. Additional 2-D coronal and sagittal reformatted images are generated on the CT workstation and uploaded to PACS. This CT examination was performed using dose optimization techniques as appropriate, variously including the following: *Automated exposure control *Adjustment of mA and/or kV according to patient size (this includes techniques or standardized protocols for targeted exams where dose is matched to indication/reason for exam; i.e. extremities or head) *Use of iterative reconstruction technique DLP: 605 mGy-cm FINDINGS: There is no intracranial hemorrhage, hematoma, or extra-axial fluid collection. The ventricles are normal in size. There is no hydrocephalus, edema, or mass effect. The regalado-white matter differentiation appears symmetric. There is no visible acute territorial infarct or mass lesion. The calvarium appears intact. There is no pneumocephalus or orbital emphysema. The visualized sinuses and middle ears and mastoid air cells show no significant mucosal thickening. There are no air-fluid levels. CT/CT head/brain wo con IMPRESSION: No acute intracranial abnormality.
--- NOTE | ~2021-04-11 | CT_ITS ---
EXAMINATION: CT CERVICAL SPINE WITHOUT CONTRAST CLINICAL INFORMATION: Fall, altered mental status. Right facial and right arm numbness. COMPARISON: CT head 04/11/2021 TECHNIQUE: Multidetector volumetric CT imaging of the cervical spine is performed without contrast in the axial plane. Additional 2D reformatted coronal and sagittal images are generated on the CT workstation and uploaded to PACS. This CT examination was performed using dose optimization techniques as appropriate, variously including the following: *Automated exposure control *Adjustment of mA and/or kV according to patient size (this includes techniques or standardized protocols for targeted exams where dose is matched to indication/reason for exam; i.e. extremities or head) *Use of iterative reconstruction technique DLP: 511 mGy-cm FINDINGS: There is no vertebral compression fracture, fracture line, spondylolisthesis, or prevertebral soft tissue swelling. The craniocervical junction appears normal. The odontoid appears intact. There is normal cervical lordosis. There is no focal disc narrowing. Mild spurring is seen in the upper to mid cervical facets. No erosive change. There is no apical pneumothorax. CT/CT cervical spine wo con IMPRESSION: No acute bony abnormality or prevertebral soft tissue swelling.
[2021-04-11 13:01] VITALS: BP 127/71; BP 127/88; PULSE 86; RESP 14; TEMP 36.9; O2SAT 95; BMI 32.3
[2021-04-11 13:06] VITALS: BP 127/71; PULSE 86; RESP 14; TEMP 36.9; O2SAT 95
--- NOTE | 2021-04-11 13:27 | ECG_ITS ---
Test Reason : GENEREAL MEDICAL Blood Pressure : / mmHG Vent. Rate : 075 BPM Atrial Rate : 075 BPM P-R Int : 130 ms QRS Dur : 086 ms QT Int : 388 ms P-R-T Axes : 059 033 049 degrees QTc Int : 433 ms Normal sinus rhythm Normal ECG When compared with ECG of 14-FEB-2020 14:13, Premature supraventricular complexes are no longer Present Referred By: Ange Gil Electronically Signed By:SHAHRIAR ZAPATA MD
[2021-04-11 13:52] LABS: MANUAL DIFF FLAG NO
[2021-04-11 13:53] LABS: Basophils Percent Auto 0.2 % (0-2); Eosinophils Absolute Auto 0.1 X10*3/uL (0.0-0.4); Eosinophils Percent Auto 1.4 % (0-4); Hematocrit 36.9 % (37-47); Imm Gran Abs Auto 0.04 X10*3/uL (0.00-0.03); Imm Gran Pct Auto 0.8 % (0.0-0.4); Lymphocytes Percent Auto 40.2 % (20-40); Mean Corpuscular HGB Conc 32.5 g/dl (31.0-35.0); Mean Corpuscular Hemoglobin 29.7 pg (27.0-33.0); Mean Corpuscular Volume 91.3 fL (80-98); Mean Platelet Volume 9.9 fL (9.4-12.3); Monocytes Absolute Auto 0.5 X10*3/uL (0.1-1.2); Monocytes Percent Auto 10.7 % (2-11); Neutrophils Absolute Auto 2.4 X10*3/uL (2.0-8.3); Neutrophils Percent Auto 46.7 % (45-73); Platelet Count 206 X10*3/uL (160-400); Red Blood Count 4.04 X10*6/uL (4.20-5.50); Red Cell Distribution Width 13.7 % (11.0-16.0)
[2021-04-11 13:58] LABS: Glucose Urine UA NEG (NEG); Leukocyte Esterase Urine NEG (NEG); Nitrite Urine NEG (NEG); Urine Blood NEG (NEG); Urine Ketones NEG (NEG); Urine Protein NEG (NEG-TRACE)
[2021-04-11 14:00] VITALS: BP 132/87; PULSE 99; RESP 14
[2021-04-11 14:00] LABS: Appearance Urine CLEAR; Color Urine STRAW; INTERNATIONAL NORM RATIO 1.1 (0.9-1.1); Prothrombin Time 13.4 SEC (10.8-13.0)
[2021-04-11 14:14] VITALS: BP 132/87; PULSE 99
[2021-04-11 14:15] VITALS: BP 144/94; PULSE 88
[2021-04-11 14:17] VITALS: BP 139/95; PULSE 108
[2021-04-11 14:24] LABS: Alanine Aminotransferase 33 U/L (0-31); Albumin Level 4.1 g/dL (3.5-5.0); Alkaline Phosphatase 92 U/L (39-117); Anion Gap 12 (12-20); Aspartate Amino Transferase 32 U/L (5-31); Bilirubin Total 0.4 mg/dL (0.0-1.0); Blood Urea Nitrogen 12 mg/dL (9-16); Calcium 9.6 mg/dL (8.4-10.2); Carbon Dioxide 27 mmol/L (22-29); Chloride 105 mmol/L (96-108); Creatinine Clr Calc Pharmacy 92.9; Estimated Glomerular Filt Rate > 60; Glucose Random 110 mg/dL (60-115); Magnesium 1.8 mg/dL (1.6-2.6); Potassium 4.1 mmol/L (3.3-5.1); Sodium 140 mmol/L (135-145); Total Protein 8.1 g/dL (6.5-8.0)
[2021-04-11 14:28] LABS: B Type Natriuretic Peptide < 10 pg/mL (<100); Troponin-I High Sensitivity < 3.5 ng/L (<3.5-17.0)
--- NOTE | 2021-04-11 14:34 | ED_ITS ---
HPI - General Adult General Chief complaint: General Medical Stated complaint: R ARM & JAW NUMBNESS X'S 2 WEEKS Time Seen by Provider: 04/11/21 12:58 Source: patient and EMS Mode of arrival: EMS Limitations: language barrier (Sinhala-speaking) History of Present Illness HPI narrative: 55-year-old female with a past medical history of bipolar disorder and PTSD presenting to the ED with complaints of right-sided facial numbness/right-sided neck numbness/pain with associated generalized weakness and dizziness for the past 2 weeks that has been persistent no change. Reports that she was seen at urgent care approximately 2 weeks ago for similar symptoms and she was given medications although it gave her nausea/vomiting therefore she discontinued the medications. Denies any headaches, change in vision, sore th roat, trouble swallowing or breathing, chest pain, shortness of breath, dyspnea exertion, orthopnea, palpitations, nausea/vomiting/diarrhea/constipation/abdominal pain, black or bloody stools, hematuria, dysuria or any other symptoms complaints or concerns at this time. Reports that she is not on any blood thinners. Related Data Previous Rx's Medication Instructions Recorded diazepam [Valium] 5 mg PO BID PRN #14 tab 04/11/21 Allergies Allergy/AdvReac Type Severity Reaction Status Date / Time haloperidol [From HALDOL] Allergy Intermediate LOWERS Unverified 08/09/20 19:50 HEART RATE Review of Systems Review of Systems: Constitutional : No Fever, No Chills, No Night Sweats, No Fatigue, No Malaise ENT/Mouth : No Ear Pain, No Nasal Congestion, No Sinus Pain, No sore throat, No Rhinorrhea Eyes: No Eye Pain, No Swelling, No Redness, No Foreign Body, No Discharge, No Vision Changes Cardiovascular : No Chest Pain, No SOB, No Dyspnea on Exertion, No Orthopnea, No Palpitations Respiratory : No Cough, No Sputum, No Wheezing, No Dyspnea Gastrointestinal : No Nausea, No Vomiting, No Diarrhea, No Constipation, No abdominal Pain, No Hematochezia, No Melena Genitourinary : No Dysuria, No Urinary Frequency, No Urinary Incontinence, No Urgency, No Flank Pain Musculoskeletal : No joint pain, No Myalgias Skin : No lacerations Neuro : Positive dizziness/paresthesias/general weakness, No Focal weakness, No Loss of Consciousness, No Headache Yes all other systems are reviewed and are negative PMFSH Past Medical History Attestation statement: The following information was validated with the patient. Social History Social History Alcohol intake: never Smoking Status: Never smoker Use of substances other than those prescribed or required for medical reasons: No Advance Directives: No Advance Directives Information Provided: Yes Patient : No Physical Exam Vital Signs: Vital Signs: Last Vital Signs Temp 98.4 F 04/11/21 13:06 Pulse 108 H 04/11/21 14:17 Resp 14 04/11/21 14:00 BP 139/95 H 04/11/21 14:17 Pulse Ox 95 04/11/21 13:06 Body Mass Index 32.3 Vital signs have been reviewed as normal and appeared to be correct. Blood pressure normal. Heart rate normal. Respiration rate normal. Temperature normal. Oxygen saturation normal. Appearance: Alert. Oriented X3. No acute distress. Head: Normal external exam. Normocephalic. Atraumatic. Able to rotate head bilaterally. Eyes: PERRLA. EOMI. No nystagmus noted. Conjunctiva and sclera normal. Eyelids normal. Corneal reflex normal. ENT: EAC normal. TM's Normal. Hearing normal. Pharynx normal. Uvula midline. tongue midline. Moist mucous membranes. No trismus noted. No drooling noted. No muffled voice noted. No nystagmus noted. Neck: Normal inspection. Neck supple. FROM. No adenopathy. Trachea midline. Thyroid Normal. No meningeal signs. No neck mass noted. CVS: Normal heart rate and rhythm. Heart sound normal. No murmurs noted. Pulses normal throughout. Respiratory: No respiratory distress. Painless inspiration. Breath sounds normal. No wheezes/rales/rhonchi noted. Chest nontender. No accessory muscle u zeke noted or decreased air movement noted. Abdomen: Soft and nontender. Bowel sounds normal in all 4 quadrants. No distention noted. No organomegaly noted. No visible injury noted. Back: No CVA tenderness. Full range of motion noted. Skin: Skin warm and dry. Normal skin color. Normal skin turgor. No rashes/lesions/lacerations noted. Extremities: No lower extremity edema. Extremities exhibit normal range of motion. Extremities nontender. Able to shrug shoulders bilaterally and keep up against resistance. Neuro: Oriented X 3. No motor deficit. No sensory deficit. Reflexes normal. Moving all extremities. No focal motor deficits. Cranial nerves II-XI intact bilaterally. Facial strength normal. Normal cognition. Speech normal. Gait normal. Strength 5/5 throughout. No pronator drift. No tremor noted. No fasciculations noted. No rigidity noted. Muscle tone normal throughout. No as terixis noted. [id number] test normal. Heel to rosenbaum test normal. Tandem gait normal. Does not sway with eyes open. Romberg test negative. Rapid alternating movement upper extremity normal. Rapid alternating movement lower extremity normal. Hand drop from overhead Misses face. NIHSS score 0. Course Course Course Narrative: 15pm - labs return and patient mild elevation in AST/ALT at 32/33 otherwise all other labs are within normal limits including troponin/BNP/TSH level. UA is within no rmal limits no evidence of UTI. CT scan Of brain/cervical spine revealed chronic changes no acute processes noted. Chest x-ray revealed calcified tendinitis of right shoulder therefore this could be the cause of the patient's pain otherwise no other acute processes noted. EKG normal sinus rhythm no acute ischemic changes noted. - therefore will DC home with symptomatic treatment instructions to return if any new or worsening symptoms to follow up with primary care provider. Patient understands agrees with this plan. Medical Decision Making [facility] Narrative Medical decision making narrative: 13:30pm -55-year-old female with a past medical history of bipolar disorder and PTSD presenting to the ED with complaints of right-sided facial numbness/right-sided neck numbness/pain with associated generalized weakness and dizziness for the past 2 weeks that has been persistent no change. - on exam patient is alert and oriented x3. Not in any acute distress. Vital signs are stable within normal limits. No focal neuro deficits are noted. NIHSS score 0. Patient has non disabling symptom not a tPA candidate as patient's symptoms started 2 weeks ago and have been persistent no change. Lungs clear to auscultation. CV RRR. Abdomen is soft and nontender. No lower extremity edema or calf tenderness noted. Normal steady gait. - Plan: Labs, CT scan of brain/cervical spine, chest x-ray, EKG then re- evaluate. Medical Records Medical records reviewed: Yes I reviewed the patient's medical records. Lab Data Lab results reviewed: Yes I reviewed the patient's lab results. Result diagrams: 04/11/21 13:41 04/11/21 13:41 Labs: Lab Results 04/11/21 04/11/21 04/11/21 Range/Units 13:41 13:41 13:41 WBC 5.0 (4.8-10.8) X10*3/uL RBC 4.04 L (4.20-5.50) X10*6/uL Hgb 12.0 (12.0-16.0) g/dl Hct 36.9 L (37-47) % MCV 91.3 (80-98) fL MCH 29.7 (27.0-33.0) pg MCHC 32.5 (31.0-35.0) g/dl RDW 13.7 (11.0-16.0) % Plt Count 206 (160-400) X10*3/uL MPV 9.9 (9.4-12.3) fL Immature Gran % (Auto) 0.8 H (0.0-0.4) % Neut % (Auto) 46.7 (45-73) % Lymph % (Auto) 40.2 H (20-40) % [place] % (Auto) 10.7 (2-11) % Eos % (Auto) 1.4 (0-4) % Baso % (Auto) 0.2 (0-2) % Lymph # (Auto) 2.0 (1.2-4.9) X10*3/uL [place] # (Auto) 0.5 (0.1-1.2) X10*3/uL Eos # (Auto) 0.1 (0.0-0.4) X10*3/uL Baso # (Auto) 0.0 (0.0-0.2) X10*3/uL Abs Immat Gran (auto) 0.04 H (0.00-0.03) X10*3/uL Absolute Neuts (auto) 2.4 (2.0-8.3) X10*3/uL Absolute Nucleated RBC 0.000 (0.0-0.012) X10*3/uL Nucleated RBC % (auto) 0.0 (0.0-0.2) /100WBC PT 13.4 H (10.8-13.0) SEC INR 1.1 (0.9-1.1) Sodium 140 (135-145) mmol/L Potassium 4.1 (3.3-5.1) mmol/L Chloride 105 (96-108) mmol/L Carbon Dioxide 27 (22-29) mmol/L Anion Gap 12 (12-20) BUN 12 (9-16) mg/dL Creatinine 0.66 (0.5-1.4) mg/dL Estim Creat Clear Calc 92.9 Estimated GFR > 60 Random Glucose 110 (60-115) mg/dL Calcium 9.6 (8.4-10.2) mg/dL Magnesium 1.8 (1.6-2.6) mg/dL Total Bilirubin 0.4 (0.0-1.0) mg/dL AST 32 H (5-31) U/L ALT 33 H (0-31) U/L Alkaline Phosphatase 92 (39-117) U/L Troponin I High Sens (<3.5-17.0) ng/L B-Natriuretic Peptide (<100) pg/mL Total Protein 8.1 H (6.5-8.0) g/dL Albumin 4.1 (3.5-5.0) g/dL TSH 2.17 (0.32-4.0) uIU/mL Urine Color Urine Appearance Urine pH (5.0-8.0) Ur Specific [place] (1.005-1.025) Urine Protein (NEG-TRACE) MG/DL Urine Glucose (UA) (NEG) MG/DL Urine Ketones (NEG) MG/DL Urine Blood (NEG) Urine Nitrite (NEG) Ur Leukocyte Esterase (NEG) 04/11/21 04/11/21 Range/Units 13:41 13:41 WBC (4.8-10.8) X10*3/uL RBC (4.20-5.50) X10*6/uL Hgb (12.0-16.0) g/dl Hct (37-47) % MCV (80-98) fL MCH (27.0-33.0) pg MCHC (31.0-35.0) g/dl RDW (11.0-16.0) % Plt Count (160-400) X10*3/uL MPV (9.4-12.3) fL Immature Gran % (Auto) (0.0-0.4) % Neut % (Auto) (45-73) % Lymph % (Auto) (20-40) % [place] % (Auto) (2-11) % Eos % (Auto) (0-4) % Baso % (Auto) (0-2) % Lymph # (Auto) (1.2-4.9) X10*3/uL [place] # (Auto) (0.1-1.2) X10*3/uL Eos # (Auto) (0.0-0.4) X10*3/uL Baso # (Auto) (0.0-0.2) X10*3/uL Abs Immat Gran (auto) (0.00-0.03) X10*3/uL Absolute Neuts (auto) (2.0-8.3) X10*3/uL Absolute Nucleated RBC (0.0-0.012) X10*3/uL Nucleated RBC % (auto) (0.0-0.2) /100WBC PT (10.8-13.0) SEC INR (0.9-1.1) Sodium (135-145) mmol/L Potassium (3.3-5.1) mmol/L Chloride (96-108) mmol/L Carbon Dioxide (22-29) mmol/L Anion Gap (12-20) BUN (9-16) mg/dL Creatinine (0.5-1.4) mg/dL Estim Creat Clear Calc Estimated GFR Random Glucose (60-115) mg/dL Calcium (8.4-10.2) mg/dL Magnesium (1.6-2.6) mg/dL Total Bilirubin (0.0-1.0) mg/dL AST (5-31) U/L ALT (0-31) U/L Alkaline Phosphatase (39-117) U/L Troponin I High Sens < 3.5 (<3.5-17.0) ng/L B-Natriuretic Peptide < 10 (<100) pg/mL Total Protein (6.5-8.0) g/dL Albumin (3.5-5.0) g/dL TSH (0.32-4.0) uIU/mL Urine Color STRAW Urine Appearance CLEAR Urine pH 6.0 (5.0-8.0) Ur Specific [place] 1.010 (1.005-1.025) Urine Protein NEG (NEG-TRACE) MG/DL Urine Glucose (UA) NEG (NEG) MG/DL Urine Ketones NEG (NEG) MG/DL Urine Blood NEG (NEG) Urine Nitrite NEG (NEG) Ur Leukocyte Esterase NEG (NEG) Imaging Data Chest x-ray: Attestation: I personally reviewed and interpreted this imaging study as follows: Radiologist's impression: FINDINGS: There are low lung volumes. There is subtle coarsening of the bronchiolar markings but no airspace consolidation or definite groundglass opacity. The costophrenic sulci are clear. There is no effusion. Heart is within limits of normal size. The vascularity is normal. The hilar and mediastinal contours are unremarkable. No visible acute bony abnormality. There is bulky calcific tendinosis right shoulder. XR/XR chest 2V IMPRESSION: 1. Low lung volumes. Coarsening bronchiolar markings. 2. No airspace consolidation or effusion. 3. Calcific tendinosis right shoulder. CT scan of brain/cervical spine: Attestation: I personally reviewed and interpreted this imaging study as follows: Radiologist's impression: FINDINGS: There is no intracranial hemorrhage, hematoma, or extra-axial fluid collection. The ventricles are normal in size. There is no hydrocephalus, edema, or mass effect. The regalado-white matter differentiation appears symmetric. There is no visible acute territorial infarct or mass lesion. The calvarium appears intact. There is no pneumocephalus or orbital emphysema. The visualized sinuses and middle ears and mastoid air cells show no significant mucosal thickening. There are no air-fluid levels. CT/CT head/brain wo con IMPRESSION: No acute intracranial abnormality. FINDINGS: There is no vertebral compression fracture, fracture line, spondylolisthesis, or prevertebral soft tissue swelling. The craniocervical junction appears normal. The odontoid appears intact. There is normal cervical lordosis. There is no focal disc narrowing. Mild spurring is seen in the upper to mid cervical facets. No erosive change. There is no apical pneumothorax. CT/CT cervical spine wo con IMPRESSION: No acute bony abnormality or prevertebral soft tissue swelling. ECG Data Attestation: I personally reviewed and interpreted this ECG as follows: Interpretation: Normal sinus rhythm with Q-waves in lead II/III/AVF otherwise no acute ischemic changes noted. Improved EKG when compared to prior EKG on 02/14/2020 Critical Care Time Critical Care Time Critical Care Time: Yes Total Critical Care Time: 60 Attestation: I personally attest to this time spent taking care of the patient Discharge Plan Discharge Clinical Impression: Paresthesia, Dizziness, Calcifying tendinitis of shoulder Patient Disposition: Home, Self-Care Instructions: Calcific Tendinitis (ED), Paresthesia (ED), Dizziness (ED) Prescriptions: New diazepam [Valium] 5 mg tablet 5 mg PO BID PRN (Reason: muscle spasm) Qty: 14 RF: 0 Referrals: Physician,Unknown [Primary Care Provider] - 2 days Print Language: Sinhala
[2021-04-11 15:25] LABS: Thyroid Stimulating Hormone 2.17 uIU/mL (0.32-4.0)
== END 2021-04-11 15:49 | disposition home or self-care (01) ==
PROVIDERS: Physician Assistant Medical; Emergency Provider Emergency Medicine Emergency Medical Services
DX: R20.2 Paresthesia of skin (principal); R42 Dizziness and giddiness; M75.31 Calcific tendinitis of right shoulder; R53.1 Weakness; F43.10 Post-traumatic stress disorder, unspecified; F31.9 Bipolar disorder, unspecified
CPT/HCPCS: 36415; 70450; 71046; 72125; 80053; 81003; 83735; 83880; 84443; 84484; 85025; 85610; 93005; 99285; 99291

== ENCOUNTER 2021-05-16 13:18 | Emergency (ER) | payer MEDICAID, SELFPAY ==
--- NOTE | ~2021-05-16 | CT_ITS ---
EXAMINATION: CT HEAD WITHOUT CONTRAST CLINICAL INFORMATION: Dizziness since yesterday COMPARISON: None TECHNIQUE: Contiguous axial imaging was performed from the skull base to vertex without intravenous administration of contrast. This CT examination was performed using dose optimization techniques as appropriate, variously including the following: *Automated exposure control *Adjustment of mA and/or kV according to patient size (this includes techniques or standardized protocols for targeted exams where dose is matched to indication/reason for exam; i.e. extremities or head) *Use of iterative reconstruction technique DLP: 590 mGy-cm FINDINGS: There is no evidence of acute intracranial hemorrhage or territorial infarction. No abnormal mass effect or midline shift is seen. Davis to white matter differentiation is well preserved. No extra-axial fluid collections are identified. The ventricles are normal in size. There is no abnormal attenuation within the brain parenchyma. The osseous structures and soft tissues are normal. The mastoid air cells and visualized portions of the paranasal sinuses are well aerated. CT/CT head/brain wo con IMPRESSION: No acute intracranial process seen.
--- NOTE | ~2021-05-16 | XR_ITS ---
EXAMINATION: XR CHEST CLINICAL INFORMATION: Dizziness, chest pain COMPARISON: Chest radiographs 04/11/2021, 06/26/2020 TECHNIQUE: 2 views of the chest were obtained. FINDINGS: There are low lung volumes with inspiration to the posterior eighth intercostal spaces. There is no lobar or segmental airspace consolidation or effusion. No pneumothorax or pleural reaction. The costophrenic sulci are clear. The heart is within normal size. The vascularity is normal. The hilar and mediastinal contours are unremarkable. No acute bony abnormality. Calcific tendinosis again noted right shoulder rotator cuff. XR/XR chest 2V IMPRESSION: Low lung volumes. Lungs grossly clear.
[2021-05-16 13:45] VITALS: BP 116/68; BP 123/81; PULSE 77; RESP 18; TEMP 37.1; O2SAT 98; BMI 33.3
--- NOTE | 2021-05-16 14:10 | ECG_ITS ---
Test Reason : CHEST PAIN Blood Pressure : / mmHG Vent. Rate : 066 BPM Atrial Rate : 066 BPM P-R Int : 132 ms QRS Dur : 086 ms QT Int : 422 ms P-R-T Axes : 028 024 028 degrees QTc Int : 442 ms Normal sinus rhythm Normal ECG When compared with ECG of 11-APR-2021 13:49, No significant change was found Referred By: Ange Gil Electronically Signed By:Gautam Chambers
[2021-05-16 14:19] VITALS: BP 123/91; PULSE 72; RESP 16; O2SAT 100
[2021-05-16 14:40] LABS: MANUAL DIFF FLAG NO
[2021-05-16 14:43] LABS: Glucose Urine UA NEG (NEG); Leukocyte Esterase Urine 1+ (NEG); Nitrite Urine NEG (NEG); UACC Culture Trigger YES; Urine Blood NEG (NEG); Urine Ketones NEG (NEG); Urine Protein NEG (NEG-TRACE)
[2021-05-16 14:44] LABS: Appearance Urine HAZY; Color Urine YELLOW
[2021-05-16 14:44] LABS: Basophils Percent Auto 0.2 % (0-2); Eosinophils Percent Auto 0.5 % (0-4); Hematocrit 35.4 % (37-47); Hemoglobin 11.6 g/dl (12.0-16.0); Imm Gran Abs Auto 0.04 X10*3/uL (0.00-0.03); Imm Gran Pct Auto 0.6 % (0.0-0.4); Lymphocytes Absolute Auto 2.3 X10*3/uL (1.2-4.9); Lymphocytes Percent Auto 37.2 % (20-40); Mean Corpuscular HGB Conc 32.8 g/dl (31.0-35.0); Mean Corpuscular Hemoglobin 29.3 pg (27.0-33.0); Mean Corpuscular Volume 89.4 fL (80-98); Mean Platelet Volume 10.3 fL (9.4-12.3); Monocytes Absolute Auto 0.6 X10*3/uL (0.1-1.2); Monocytes Percent Auto 9.4 % (2-11); Neutrophils Absolute Auto 3.2 X10*3/uL (2.0-8.3); Neutrophils Percent Auto 52.1 % (45-73); Platelet Count 194 X10*3/uL (160-400); Red Blood Count 3.96 X10*6/uL (4.20-5.50); Red Cell Distribution Width 13.3 % (11.0-16.0); White Blood Count 6.2 X10*3/uL (4.8-10.8)
[2021-05-16 14:48] LABS: INTERNATIONAL NORM RATIO 1.1 (0.9-1.1); Prothrombin Time 13.3 SEC (10.8-13.0)
[2021-05-16 14:51] LABS: Bacteria Urine TRACE /LPF; RBC Urine 0 /HPF (0); Squamous Epithelial Cell Urine 2+ /LPF
[2021-05-16 15:06] LABS: Alanine Aminotransferase 27 U/L (0-31); Albumin Level 4.2 g/dL (3.5-5.0); Alkaline Phosphatase 90 U/L (39-117); Anion Gap 13 (12-20); Aspartate Amino Transferase 33 U/L (5-31); Bilirubin Total 0.4 mg/dL (0.0-1.0); Blood Urea Nitrogen 11 mg/dL (9-16); Calcium 8.9 mg/dL (8.4-10.2); Carbon Dioxide 22 mmol/L (22-29); Chloride 105 mmol/L (96-108); Creatinine Clr Calc Pharmacy 100.5; Estimated Glomerular Filt Rate > 60; Glucose Random 97 mg/dL (60-115); Magnesium 1.9 mg/dL (1.6-2.6); Potassium 3.9 mmol/L (3.3-5.1); Sodium 136 mmol/L (135-145)
[2021-05-16 15:13] LABS: B Type Natriuretic Peptide < 10 pg/mL (<100); Troponin-I High Sensitivity < 3.5 ng/L (<3.5-17.0)
--- NOTE | 2021-05-16 15:28 | ED_ITS ---
HPI - Chest Pain General Chief Complaint: Chest Pain Stated Complaint: chest pain Time Seen by Provider: 05/16/21 14:02 Source: patient Mode of arrival: ambulatory Limitations: no limitations History of Present Illness HPI narrative: 55-year-old female with a past medical history of bipolar disorder and PTSD presenting to the ED with multiple complaints which include dizziness, headache, nausea/vomiting, chest pain radiating to her left shoulder and bilateral lower extremity weakness for the past 2-3 days. Although reports the lower extremity weakness has improved. Denies any head trauma, changes in vision common shortness of breath, dyspnea on exertion, orthopnea, cough, sore throat, runny nose, palpitations, back pain, lower extremity edema, focal weakness or any other symptoms complaints or concerns at this time. She denies being on any blood thinners. MD complaint: chest pain Onset (ago): day(s) (2-3 days) Timing of current episode: constant Prior episodes: Yes Onset: other (Cannot recall) Pain location: substernal and left chest Pain radiation: left arm Severity: moderate Quality: aching Relieving factors: nothing Exacerbating factors: nothing Associated symptoms: nausea, vomiting and other (Bilateral Lower extremity weakness that has resolved) Treatment prior to arrival: none Related Data Previous Rx's Medication Instructions Recorded diazepam [Valium] 5 mg PO BID PRN #14 tab 04/11/21 meclizine 25 mg PO DAILY PRN #10 tab 05/16/21 ondansetron HCl [Zofran] 4 mg PO Q8H PRN #14 tab 05/16/21 Allergies Allergy/AdvReac Type Severity Reaction Status Date / Time haloperidol [From HALDOL] Allergy Intermediate LOWERS Unverified 08/09/20 19:50 HEART RATE Review of Systems Review of Systems: Constitutional : No Weight loss, No Fever, No Chills, No Night Sweats, No Fatigue, No Malaise ENT/Mouth : No Hearing loss, No Ear Pain, No Nasal Congestion, No Sinus Pain, No Hoarseness, No sore throat, No Rhinorrhea, No Swallowing Difficulty Eyes: No Eye Pain, No Swelling, No Redness, No Foreign Body, No Discharge, No Vision Changes Cardiovascular : Positive chest discomfort, No SOB, no Dyspnea on Exertion, No Orthopnea, No Edema, No extremity swelling, No Palpitations Respiratory : No Cough, No Sputum, No Wheezing, No Dyspnea Gastrointestinal : Positive nausea/vomiting, No Diarrhea, No abdominal Pain, No Hematochezia, No Melena Genitourinary : No irregular bleeding, No Dysuria, No Urinary Frequency, No Hematuria, No Urinary Incontinence, No Urgency, No Flank Pain, No Urinary Flow Changes, No Hesitancy Musculoskeletal : No joint pain, No Myalgias, No Joint Swelling Skin : No Skin Lesions, No rash Neuro : No focal Weakness, No Numbness, No Paresthesias, No Loss of Conscious ness, No Dizziness, No Headache Psych : No Anxiety/Panic, No Depression, No SI/HI/AH/VH Heme/Lymph: No Bruising, No Bleeding,No Lymphadenopathy Endocrine : No Polyuria, No Polydipsia, No Temperature Intolerance Yes all other systems are reviewed and are negative [facility] Past Medical History Attestation statement: The following information was validated with the patient. Social History Social History Alcohol intake: never Advance Directives: No Advance Directives Information Provided: No Patient : No Physical Exam Vital Signs: Vital Signs: Last Vital Signs Temp 98.7 F 05/16/21 13:45 Pulse 72 05/16/21 14:19 Resp 16 05/16/21 14:19 BP 123/91 H 05/16/21 14:19 Pulse Ox 100 05/16/21 14:19 Body Mass Index 33.3 Vital signs have been reviewed as normal and appeared to be correct. Blood pressure normal. Heart rate normal. Respiration rate normal. Temperature normal. Oxygen saturation normal. Appearance: Alert. Oriented X3. No acute distress. Head: Normal external exam. Normocephalic. Atraumatic. Able to rotate head bilaterally. Eyes: PERRLA. EOMI. No nystagmus noted. Conjunctiva and sclera normal. Eyelids normal. Corneal reflex normal. ENT: EAC normal. TM's Normal. Hearing normal. Pharynx normal. Uvula midline. tongue midline. Moist mucous membranes. No trismus noted. No drooling noted. No muffled voice noted. No nystagmus noted. Neck: Normal inspection. Neck supple. FROM. No adenopathy. Trachea midline. Thyroid Normal. No meningeal signs. No neck mass noted. CVS: Normal heart rate and rhythm. Heart sound normal. No murmurs noted. Pulses normal throughout. Respiratory: No respiratory distress. Painless inspiration. Breath sounds normal. No wheezes/rales/rhonchi noted. Chest nontender. No accessory muscle usage noted or decreased air movement noted. Abdomen: Soft and nontender. Bowel sounds normal in all 4 quadrants. No distention noted. No organomegaly noted. No visible injury noted. Back: No CVA tenderness. Full range of motion noted. Skin: Skin warm and dry. Normal skin color. Normal skin turgor. No rash es/lesions/lacerations noted. Extremities: No lower extremity edema. Extremities exhibit normal range of motion. Extremities nontender. Able to shrug shoulders bilaterally and keep up against resistance. Neuro: Oriented X 3. No motor deficit. No sensory deficit. Reflexes normal. Moving all extremities. No focal motor deficits. Cranial nerves II-XI intact bilaterally. Facial strength normal. Normal cognition. Speech normal. Gait normal. Strength 5/5 throughout. No pronator drift. No tremor noted. No fasciculations noted. No rigidity noted. Muscle tone normal throughout. No asterixis noted. [id number] test normal. Heel to rosenbaum test normal. Tandem gait normal. Does not sway with eyes open. Romberg test negative. Rapid alternating movement upper extremity normal. Rapid alternating movement lower extremity normal. Hand drop from overhead Misses face. NIHSS score 0. Course Course Course Narrative: 55-year-old female presenting to the ED with multiple complaints which include dizziness, headaches, chest pain radiating to her left arm, cough with white-colored sputum although denied this to me, and resolve lower extremity bilateral weakness. On exam patient is alert and oriented x3. Not in any acute distress. No focal neuro deficits are noted. NIH SS score 0 in symptoms started 2-3 days ago and her lower extremity bilateral weakness has since resolved. Lungs clear to auscultation. CV RRR. Abdomen is soft and nontender. No lower extremity weakness calf tenderness or edema noted. - labs obtained and patient with an AST of 33 otherwise all other labs are with in normal limits. UA with +1 leukocytes otherwise no evidence of UTI at this time. Chest x-ray within normal limits no acute processes are noted. EKG is normal sinus rhythm no acute ischemic changes are noted. CT scan of brain within normal limits no acute processes noted. Will DC home with instructions return if any new or worsening symptoms to follow up with primary care provider. Patient understands agrees with this plan. MDM - Chest Pain Medical Records Data Attestation: I reviewed the patient's medical records. Lab Data Attestation: I reviewed the patient's lab results. Result diagrams: 05/16/21 14:34 05/16/21 14:34 Labs: Lab Results 05/16/21 05/16/21 05/16/21 Range/Units 14:22 14:22 14:34 WBC 6.2 (4.8-10.8) X10*3/uL RBC 3.96 L (4.20-5.50) X10*6/uL Hgb 11.6 L (12.0-16.0) g/dl Hct 35.4 L (37-47) % MCV 89.4 (80-98) fL MCH 29.3 (27.0-33.0) pg MCHC 32.8 (31.0-35.0) g/dl RDW 13.3 (11.0-16.0) % Plt Count 194 (160-400) X10*3/uL MPV 10.3 (9.4-12.3) fL Immature Gran % (Auto) 0.6 H (0.0-0.4) % Neut % (Auto) 52.1 (45-73) % Lymph % (Auto) 37.2 (20-40) % [place] % (Auto) 9.4 (2-11) % Eos % (Auto) 0.5 (0-4) % Baso % (Auto) 0.2 (0-2) % Lymph # (Auto) 2.3 (1.2-4.9) X10*3/uL [place] # (Auto) 0.6 (0.1-1.2) X10*3/uL Eos # (Auto) 0.0 (0.0-0.4) X10*3/uL Baso # (Auto) 0.0 (0.0-0.2) X10*3/uL Abs Immat Gran (auto) 0.04 H (0.00-0.03) X10*3/uL Absolute Neuts (auto) 3.2 (2.0-8.3) X10*3/uL Absolute Nucleated RBC 0.000 (0.0-0.012) X10*3/uL Nucleated RBC % (auto) 0.0 (0.0-0.2) /100WBC PT (10.8-13.0) SEC INR (0.9-1.1) Sodium (135-145) mmol/L Potassium (3.3-5.1) mmol/L Chloride (96-108) mmol/L Carbon Dioxide (22-29) mmol/L Anion Gap (12-20) BUN (9-16) mg/dL Creatinine (0.5-1.4) mg/dL Estim Creat Clear Calc Estimated GFR Random Glucose (60-115) mg/dL Calcium (8.4-10.2) mg/dL Magnesium (1.6-2.6) mg/dL Total Bilirubin (0.0-1.0) mg/dL AST (5-31) U/L ALT (0-31) U/L Alkaline Phosphatase (39-117) U/L Troponin I High Sens < 3.5 (<3.5-17.0) ng/L B-Natriuretic Peptide < 10 (<100) pg/mL Total Protein (6.5-8.0) g/dL Albumin (3.5-5.0) g/dL Urine Color YELLOW Urine Appearance HAZY Urine pH 6.0 (5.0-8.0) Ur Specific [place] 1.010 (1.005-1.025) Urine Protein NEG (NEG-TRACE) MG/DL Urine Glucose (UA) NEG (NEG) MG/DL Urine Ketones NEG (NEG) MG/DL Urine Blood NEG (NEG) Urine Nitrite NEG (NEG) Ur Leukocyte Esterase 1+ H (NEG) Urine RBC 0 (0) /HPF Urine WBC 1-4 (0-4) /HPF Ur Squamous Epith Cells 2+ /LPF Urine Bacteria TRACE /LPF 05/16/21 05/16/21 Range/Units 14:34 14:34 WBC (4.8-10.8) X10*3/uL RBC (4.20-5.50) X10*6/uL Hgb (12.0-16.0) g/dl Hct (37-47) % MCV (80-98) fL MCH (27.0-33.0) pg MCHC (31.0-35.0) g/dl RDW (11.0-16.0) % Plt Count (160-400) X10*3/uL MPV (9.4-12.3) fL Immature Gran % (Auto) (0.0-0.4) % Neut % (Auto) (45-73) % Lymph % (Auto) (20-40) % [place] % (Auto) (2-11) % Eos % (Auto) (0-4) % Baso % (Auto) (0-2) % Lymph # (Auto) (1.2-4.9) X10*3/uL [place] # (Auto) (0.1-1.2) X10*3/uL Eos # (Auto) (0.0-0.4) X10*3/uL Baso # (Auto) (0.0-0.2) X10*3/uL Abs Immat Gran (auto) (0.00-0.03) X10*3/uL Absolute Neuts (auto) (2.0-8.3) X10*3/uL Absolute Nucleated RBC (0.0-0.012) X10*3/uL Nucleated RBC % (auto) (0.0-0.2) /100WBC PT 13.3 H (10.8-13.0) SEC INR 1.1 (0.9-1.1) Sodium 136 (135-145) mmol/L Potassium 3.9 (3.3-5.1) mmol/L Chloride 105 (96-108) mmol/L Carbon Dioxide 22 (22-29) mmol/L Anion Gap 13 (12-20) BUN 11 (9-16) mg/dL Creatinine 0.62 (0.5-1.4) mg/dL Estim Creat Clear Calc 100.5 Estimated GFR > 60 Random Glucose 97 (60-115) mg/dL Calcium 8.9 D (8.4-10.2) mg/dL Magnesium 1.9 (1.6-2.6) mg/dL Total Bilirubin 0.4 (0.0-1.0) mg/dL AST 33 H (5-31) U/L ALT 27 (0-31) U/L Alkaline Phosphatase 90 (39-117) U/L Troponin I High Sens (<3.5-17.0) ng/L B-Natriuretic Peptide (<100) pg/mL Total Protein 8.0 (6.5-8.0) g/dL Albumin 4.2 (3.5-5.0) g/dL Urine Color Urine Appearance Urine pH (5.0-8.0) Ur Specific [place] (1.005-1.025) Urine Protein (NEG-TRACE) MG/DL Urine Glucose (UA) (NEG) MG/DL Urine Ketones (NEG) MG/DL Urine Blood (NEG) Urine Nitrite (NEG) Ur Leukocyte Esterase (NEG) Urine RBC (0) /HPF Urine WBC (0-4) /HPF Ur Squamous Epith Cells /LPF Urine Bacteria /LPF Imaging Data CT scan - head: Attestation: I personally reviewed and interpreted this imaging study as follows: Radiologist's impression: FINDINGS: There is no evidence of acute intracranial hemorrhage or territorial infarction. No abnormal mass effect or midline shift is seen. Davis to white matter differentiation is well preserved. No extra-axial fluid collections are identified. The ventricles are normal in size. There is no abnormal attenuation within the brain parenchyma. The osseous structures and soft tissues are normal. The mastoid air cells and visualized portions of the paranasal sinuses are well aerated. CT/CT head/brain wo con IMPRESSION: No acute intracranial process seen. Chest x-ray: Attestation: I personally reviewed and interpreted this imaging study as follows: Radiologist's impression: FINDINGS: There are low lung volumes with inspiration to the posterior eighth intercostal spaces. There is no lobar or segmental airspace consolidation or effusion. No pneumothorax or pleural reaction. The costophrenic sulci are clear. The heart is within normal size. The vascularity is normal. The hilar and mediastinal contours are unremarkable. No acute bony abnormality. Calcific tendinosis again noted right shoulder rotator cuff. XR/XR chest 2V IMPRESSION: Low lung volumes. Lungs grossly clear. ECG Data ECG #1: Attestation: I personally reviewed and interpreted this ECG as follows: ECG interpretation date: 05/16/21 ECG interpretation time: 14:17 Interpretation: Normal sinus rhythm and a ventricular rate of 66 with a normal [place] interval normal QRS duration normal QT/QTC interval. No acute ischemic changes are noted. Similar compared to prior EKG 04/11/2021. Discharge Plan Discharge Clinical Impression: Atypical chest pain, Vertigo Patient Disposition: Home, Self-Care Instructions: Chest Pain (ED), Vertigo (ED) Prescriptions: New meclizine 25 mg tablet 25 mg PO DAILY PRN (Reason: dizziness) Qty: 10 RF: 0 ondansetron HCl [Zofran] 4 mg tablet 4 mg PO Q8H PRN (Reason: nausea and vomiting) Qty: 14 RF: 0 No Action diazepam [Valium] 5 mg tablet 5 mg PO BID PRN (Reason: muscle spasm) Qty: 14 RF: 0 Referrals: [facility] [Primary Care Provider] - 2 days Print Language: Brazilian
[2021-05-16 16:34] VITALS: BP 127/83; PULSE 70; RESP 16; TEMP 37.2; O2SAT 98
== END 2021-05-16 16:34 | disposition home or self-care (01) ==
PROVIDERS: Physician Assistant Medical; Emergency Provider Emergency Medicine
DX: R07.89 Other chest pain (principal); R42 Dizziness and giddiness
CPT/HCPCS: 36415; 70450; 71046; 80053; 81001; 81003; 83735; 83880; 84484; 85025; 85610; 87086; 87147; 93005; 99284

== ENCOUNTER 2022-12-10 10:28 | Inpatient (IN) | payer MEDICAID, OTHER, SELFPAY ==
--- NOTE | ~2022-12-10 | XR_ITS ---
EXAMINATION: XR SHOULDER, RIGHT CLINICAL INFORMATION: Pain and difficulty moving on COMPARISON: Chest x-ray of May 16, 2021 TECHNIQUE: Three views of the right shoulder. FINDINGS: There is no evidence of acute fracture or dislocation of the right shoulder. There is minimal spurring about the glenohumeral joint without joint space narrowing. There is prominent calcification seen about site of insertion of the supraspinatus tendon as well as the subacromial region consistent with calcific tendinitis/bursitis. XR/XR shoulder RT min 2V IMPRESSION: Calcific tendinitis/bursitis.
--- NOTE | 2022-12-10 10:32 | ECG_ITS ---
Test Reason : blurred vision Blood Pressure : / mmHG Vent. Rate : 073 BPM Atrial Rate : 073 BPM P-R Int : 128 ms QRS Dur : 084 ms QT Int : 378 ms P-R-T Axes : 066 038 070 degrees QTc Int : 416 ms Normal sinus rhythm Normal ECG When compared with ECG of 16-MAY-2021 14:17, No significant change was found Referred By: Yamile Mcgill Electronically Signed By:SHAHRIAR ZAPATA MD
[2022-12-10 10:33] VITALS: BP 142/76; PULSE 84; O2SAT 95
[2022-12-10 10:35] VITALS: BP 126/80; PULSE 90; RESP 18; TEMP 36.6; O2SAT 94; BMI 28.9
[2022-12-10 10:59] LABS: Appearance Urine Hazy; Color Urine Yellow; Glucose Urine UA Negative (Negative); Leukocyte Esterase Urine Negative (Negative); Nitrite Urine Negative (Negative); Specific Gravity - Urine 1.015 (1.005-1.025); Urine Blood Negative (Negative); Urine Ketones Negative (Negative); Urine Protein Trace mg/dL (Neg-Trace)
[2022-12-10 11:07] LABS: MANUAL DIFF FLAG NO
[2022-12-10 11:11] LABS: Amphetamine Screen Urine Not Detected (Not Detect); Barbiturates, Urine Not Detected (Not Detect); Benzodiazepines Screen Urine Not Detected (Not Detect); Cannabinoid Screen Urine POSITIVE (Not Detect); Cocaine Screen Urine Not Detected (Not Detect); Fentanyl, urine Not Detected (Not Detect); Opiate Screen Urine Not Detected (Not Detect); Phencyclidine Screen Urine Not Detected (Not Detect)
[2022-12-10 11:11] LABS: Basophils Percent Auto 0.2 % (0-2); Hematocrit 37.3 % (37.0-47.0); Hemoglobin 12.4 g/dl (12.0-16.0); Imm Gran Abs Auto 0.01 X10*3/uL (0.00-0.03); Imm Gran Pct Auto 0.2 % (0.0-0.4); Lymphocytes Absolute Auto 1.9 X10*3/uL (1.2-4.9); Lymphocytes Percent Auto 38.1 % (20-40); Mean Corpuscular HGB Conc 33.2 g/dl (31.0-35.0); Mean Corpuscular Hemoglobin 29.3 pg (27.0-33.0); Mean Corpuscular Volume 88.2 fL (80.0-98.0); Mean Platelet Volume 10.2 fL (9.4-12.3); Monocytes Absolute Auto 0.8 X10*3/uL (0.1-1.2); Monocytes Percent Auto 15.3 % (2-11); Neutrophils Absolute Auto 2.4 x10*3/uL (2.0-8.3); Neutrophils Percent Auto 46.2 % (45-73); Platelet Count 202 X10*3/uL (160-400); Red Blood Count 4.23 X10*6/uL (4.20-5.50); Red Cell Distribution Width 13.4 % (11.0-16.0); White Blood Count 5.1 X10*3/uL (4.8-10.8)
[2022-12-10 11:21] LABS: COVID-19 Test Positive (Negative); IDNOW Serial# 9DB6401D
[2022-12-10 11:32] LABS: Acetaminophen LAB < 17 mcg/mL (<30); Alanine Aminotransferase 20 U/L (0-31); Albumin Level 4.3 g/dL (3.5-5.0); Alkaline Phosphatase 83 U/L (39-117); Anion Gap 12 (12-20); Aspartate Amino Transferase 29 U/L (5-31); Bilirubin Total 0.6 mg/dL (0.0-1.0); Blood Urea Nitrogen 9 mg/dL (9-16); Calcium 9.6 mg/dL (8.4-10.2); Carbon Dioxide 28 mmol/L (22-29); Chloride 100 mmol/L (96-108); Estimated Glomerular Filt Rate > 60; Ethanol < 10 mg/dL; Glucose Random 100 mg/dL (60-115); Salicylate < 5.0 mg/dL (15-30); Sodium 136 mmol/L (135-145); Total Protein 8.4 g/dL (6.5-8.0)
--- NOTE | 2022-12-10 11:49 | PC.NURSE ---
assumed care of pt at 1100, pt labs obtained, changed over, belongings secured, pt COVID +ve, requiring medical clearance, plan to transfer back to main ED.
[2022-12-10 12:47] VITALS: BP 116/84; PULSE 87; RESP 18; TEMP 36.9; O2SAT 99
--- NOTE | 2022-12-10 13:50 | PC.NURSE ---
Pt sent from pod for medical clearance. Pt resting comfortably in the stretcher with patient observer at bedside. Respirations even and unlabored, 98% on room air. Awaiting x-rays of the shoulder.
--- NOTE | 2022-12-10 15:46 | ED_ITS ---
HPI - Psych General Chief Complaint: Psychiatric Symptoms Stated Complaint: VOLUNTARY,SI,AUDITORY CHERRI,FROM CLINIC PER EMS Time Seen by Provider: 12/10/22 10:31 Source: patient Mode of arrival: ambulatory Limitations: no limitations History of Present Illness HPI Narrative: 57-year-old primarily Divehi-speaking patient presents to the emergency department for voluntary admission for suicidal ideation/homicidal ideation with plans to end her life using a knife and cutting herself. She is also complaining of upper respiratory congestion, wheezing, and chills x3 days. She states she has been having some social issues with her family which are making her feel depressed and aggressive toward her family. She also complains of left eye blurred vision and increased trouble with vision in the right eye which she states is gradual and she has sought evaluation at [facility]. She complains of right shoulder pain and difficulty with range of motion due to pain which he states has been an issue for the past 3 months after she had an injury. She denies any fever, nausea, vomiting, diarrhea, constipation, headache. MD complaint: suicidal ideation Onset (ago): day(s) Duration: intermittent and changing over time History of same: Yes Relieving factors: none Associated psychiatric symptoms: depression Associated symptoms: denies other symptoms Treatments prior to arrival: none If self harm: admits thoughts of self harm and has plan Details of plan: To cut herself with a knife Related Data Home Medications Medication Instructions Recorded Confirmed baclofen 10 mg tablet 10 mg PO BID PRN Muscle Spasm 12/11/22 12/11/22 chlorthalidone 25 mg tablet 25 mg PO DAILY 12/11/22 12/11/22 clonazepam 1 mg tablet 1 mg PO TID 12/11/22 12/11/22 hydroxyzine pamoate 25 mg capsule 25 mg PO TID PRN Anxiety 12/11/22 12/11/22 (Vistaril) levothyroxine 25 mcg tablet 25 mcg PO DAILY 12/11/22 12/11/22 naproxen 500 mg tablet 500 mg PO BID PRN Pain, Moderate 12/11/22 12/11/22 quetiapine 100 mg tablet (Seroquel) 100 mg PO QAM 12/11/22 12/11/22 quetiapine 300 mg tablet (Seroquel) 300 mg PO BEDTIME 12/11/22 12/11/22 quetiapine 400 mg tablet (Seroquel) 400 mg PO BEDTIME 12/11/22 12/11/22 ramelteon 8 mg tablet (Rozerem) 8 mg PO BEDTIME 12/11/22 12/11/22 Allergies Allergy/AdvReac Type Severity Reaction Status Date / Time haloperidol [From HALDOL] Allergy Intermediate LOWERS Verified 12/10/22 10:57 HEART RATE Review of Systems Review of Systems: In addition to documented HPI above, the additional ROS was obtained: Constitutional: No Weight loss, No Fever, No Chills ENT/Mouth: No Ear Pain, No Sinus Pain, No Hoarseness, No sore throat, No Rhinor kristyn, No Swallowing Difficulty Cardiovascular: No Chest Pain, No SOB Respiratory: No Cough,No Wheezing Gastrointestinal: No Nausea, No Vomiting, No Diarrhea, No Constipation, No Abdominal pain Genitourinary: No Dysuria, No Urinary Frequency, No Hematuria, No Urinary Incontinence/retention, No Urgency, No Flank Pain Musculoskeletal: No joint pain, No Myalgias, No Joint Swelling Skin: No Skin Lesions, No rash Neuro: No Weakness, No Numbness, No Paresthesias Yes all other systems are r eviewed and are negative [facility] Past Medical History Attestation statement: The following information was validated with the patient. Source: old records reviewed Medical History Bipolar 1 disorder Chronic post-traumatic stress disorder (PTSD) Hypothyroidism Social History Social History Household Members: None Housing: House Do you presently have visiting nurse or other home services: No Alcohol intake: unknown Second Hand Smoke Exposure: No Use of substances other than those prescribed or required for medical reasons: Yes Substance Use Type: Crack/Cocaine and Heroin Substance Use Frequency: Chronic Longstanding Last Used Substance: Just Prior to Admission Advance Directives: No Advance Directives Information Provided: No Healthcare Proxy: No Guardian: No service: No Physical Exam Vital Signs: Vital Signs: Last Vital Signs Temp 97.0 F 12/11/22 07:45 Pulse 78 12/11/22 07:45 Resp 12 12/11/22 07:45 BP 112/88 12/11/22 07:45 Pulse Ox 94 12/11/22 07:45 O2 Del Method 12/11/22 07:45 BMI result Body Mass Index 28.9 Nursing notes and vital signs reviewed. GENERAL APPEARANCE: A&0 x 4, generally well appearing, no acute distress HENMT: Normal to inspection, atraumatic, face symmetrical. Normal external ears, nose, and oropharynx clear. EYE: PERRLA, EOM intact, structures appear normal NECK: Supple without lymphadenopathy. No stiffness or restricted ROM. CHEST: Normal to inspection HEART: Normal rate and regular rhythm, normal S1/S2, no M/R/G LUNGS: LS CTA, moving air well. Able to speak in complete sentences. No crackles, wheezes, or rhonchi auscultated ABDOMEN: Soft, nontender, nondistended. Normal bowel sounds noted BACK: No CVAT, no obvious deformity EXTREMITIES: Moving LUE, LLE, and RLE without issue. Able to move RUE with res tricted ROM due to pain, no decrease in strength. No cyanosis, clubbing, or edema. Normal capillary refill. NEUROLOGICAL: Alert and oriented, moving all 4 extremities with equal strength. CN not formally tested but appearing grossly intact. Observed to ambulate with normal gait. Cognition normal SKIN: Warm and dry without any lesions, rash, or visible sores PSYCH: Cooperative, normal affect, normal thought process Course Course Course Narrative: 1030: plan for crisis consult, blood work, T , tox screen, EKG. Medications Administered Discontinued Medications Generic Name Dose Route Start Last Admin Trade Name Maximinoq PRN Reason Stop Dose Admin Acetaminophen 650 mg 12/10/22 17:20 12/10/22 17:23 Acetaminophen 325 Mg Tablet PO 12/10/22 17:21 650 mg ONCE ONE Administration Ibuprofen 600 mg 12/10/22 22:35 12/10/22 22:40 Ibuprofen 600 Mg Tablet PO 12/10/22 22:36 600 mg ONCE ONE Administration Quetiapine Fumarate 100 mg 12/10/22 22:32 12/10/22 22:41 Quetiapine Fumarate 100 Mg Tablet PO 12/10/22 22:33 100 mg ONCE ONE Administration Medical Decision Making Medical Decision Making [facility] Narrative: 57-year-old primarily Divehi-speaking patient presents to the emergency department for voluntary admission for suicidal ideation/homicidal ideation with plans to end her life using a knife and cutting herself. She is also complaining of upper respiratory congestion, wheezing, and chills x3 days. Serology positive for COVID. Blood work unremarkable. Urinalysis negative for signs of infection. EKG normal sinus rhythm with no significant changes from last EKG done on 05/16/2021. Right shoulder x-ray showing calcific tendonitis/bursitis with no evidence of acute fracture dislocation. LS CTA, VAZQUEZ equally with good strength, A&O x4, steady gait. Patient is medically cleared for continued psychiatric care. Lab Data MDM Lab Attestation statement: I reviewed the patient's lab results. 12/10/22 11:02 12/10/22 11:02 Labs: Lab Results 12/10/22 12/10/22 12/10/22 Range/Units 10:49 10:49 11:02 WBC (4.8-10.8) X10*3/uL RBC (4.20-5.50) X10*6/uL Hgb (12.0-16.0) g/dl Hct (37.0-47.0) % MCV (80.0-98.0) fL MCH (27.0-33.0) pg MCHC (31.0-35.0) g/dl RDW (11.0-16.0) % Plt Count (160-400) X10*3/uL MPV (9.4-12.3) fL Immature Gran % (Auto) (0.0-0.4) % Neut % (Auto) (45-73) % Lymph % (Auto) (20-40) % Bell % (Auto) (2-11) % Eos % (Auto) (0-4) % Baso % (Auto) (0-2) % Lymph # (Auto) (1.2-4.9) X10*3/uL Bell # (Auto) (0.1-1.2) X10*3/uL Eos # (Auto) (0.0-0.4) X10*3/uL Baso # (Auto) (0.0-0.2) X10*3/uL Abs Immat Gran (auto) (0.00-0.03) X10*3/uL Absolute Neuts (auto) (2.0-8.3) x10*3/uL Absolute Nucleated RBC (0.0-0.012) X10*3/uL Nucleated RBC % (auto) (0.0-0.2) /100WBC Sodium 136 (135-145) mmol/L Potassium 4.0 (3.3-5.1) mmol/L Chloride 100 (96-108) mmol/L Carbon Dioxide 28 (22-29) mmol/L Anion Gap 12 (12-20) BUN 9 (9-16) mg/dL Creatinine 0.82 (0.5-1.4) mg/dL Estim Creat Clear Calc 69.0 Estimated GFR > 60 Random Glucose 100 (60-115) mg/dL Calcium 9.6 D (8.4-10.2) mg/dL Total Bilirubin 0.6 (0.0-1.0) mg/dL AST 29 (5-31) U/L ALT 20 (0-31) U/L Alkaline Phosphatase 83 (39-117) U/L Total Protein 8.4 H (6.5-8.0) g/dL Albumin 4.3 (3.5-5.0) g/dL Urine Color Yellow Urine Appearance Hazy Urine pH 6.0 (5.0-9.0) Ur Specific [place] 1.015 (1.005-1.025) Urine Protein Trace (Neg-Trace) mg/dL Urine Glucose (UA) Negative (Negative) mg/dL Urine Ketones Negative (Negative) mg/dL Urine Blood Negative (Negative) Urine Nitrite Negative (Negative) Ur Leukocyte Esterase Negative (Negative) Salicylates < 5.0 L (15-30) mg/dL Urine Opiates Screen Not Detected (Not Detect) Urine Fentanyl Screen Not Detected (Not Detect) Acetaminophen < 17 (<30) mcg/mL Ur Barbiturates Screen Not Detected (Not Detect) Ur Phencyclidine Scrn Not Detected (Not Detect) Ur Amphetamines Screen Not Detected (Not Detect) U Benzodiazepines Scrn Not Detected (Not Detect) Urine Cocaine Screen Not Detected (Not Detect) U Marijuana (THC) Screen POSITIVE H (Not Detect) Ethyl Alcohol < 10 mg/dL COVID-19 ([place]) (Negative) COVID-19 Clin Com 12/10/22 12/10/22 Range/Units 11:02 11:02 WBC 5.1 (4.8-10.8) X10*3/uL RBC 4.23 (4.20-5.50) X10*6/uL Hgb 12.4 (12.0-16.0) g/dl Hct 37.3 (37.0-47.0) % MCV 88.2 (80.0-98.0) fL MCH 29.3 (27.0-33.0) pg MCHC 33.2 (31.0-35.0) g/dl RDW 13.4 (11.0-16.0) % Plt Count 202 (160-400) X10*3/uL MPV 10.2 (9.4-12.3) fL Immature Gran % (Auto) 0.2 (0.0-0.4) % Neut % (Auto) 46.2 (45-73) % Lymph % (Auto) 38.1 (20-40) % Bell % (Auto) 15.3 H (2-11) % Eos % (Auto) 0.0 (0-4) % Baso % (Auto) 0.2 (0-2) % Lymph # (Auto) 1.9 (1.2-4.9) X10*3/uL Bell # (Auto) 0.8 (0.1-1.2) X10*3/uL Eos # (Auto) 0.0 (0.0-0.4) X10*3/uL Baso # (Auto) 0.0 (0.0-0.2) X10*3/uL Abs Immat Gran (auto) 0.01 (0.00-0.03) X10*3/uL Absolute Neuts (auto) 2.4 (2.0-8.3) x10*3/uL Absolute Nucleated RBC 0.000 (0.0-0.012) X10*3/uL Nucleated RBC % (auto) 0.0 (0.0-0.2) /100WBC Sodium (135-145) mmol/L Potassium (3.3-5.1) mmol/L Chloride (96-108) mmol/L Carbon Dioxide (22-29) mmol/L Anion Gap (12-20) BUN (9-16) mg/dL Creatinine (0.5-1.4) mg/dL Estim Creat Clear Calc Estimated GFR Random Glucose (60-115) mg/dL Calcium (8.4-10.2) mg/dL Total Bilirubin (0.0-1.0) mg/dL AST (5-31) U/L ALT (0-31) U/L Alkaline Phosphatase (39-117) U/L Total Protein (6.5-8.0) g/dL Albumin (3.5-5.0) g/dL Urine Color Urine Appearance Urine pH (5.0-9.0) Ur Specific [place] (1.005-1.025) Urine Protein (Neg-Trace) mg/dL Urine Glucose (UA) (Negative) mg/dL Urine Ketones (Negative) mg/dL Urine Blood (Negative) Urine Nitrite (Negative) Ur Leukocyte Esterase (Negative) Salicylates (15-30) mg/dL Urine Opiates Screen (Not Detect) Urine Fentanyl Screen (Not Detect) Acetaminophen (<30) mcg/mL Ur Barbiturates Screen (Not Detect) Ur Phencyclidine Scrn (Not Detect) Ur Amphetamines Screen (Not Detect) U Benzodiazepines Scrn (Not Detect) Urine Cocaine Screen (Not Detect) U Marijuana (THC) Screen (Not Detect) Ethyl Alcohol mg/dL COVID-19 ([place]) Positive A (Negative) COVID-19 Clin Com See Note Independent Interpretation I performed an independent interpretation of an: EKG Interpretation: I independently reviewed the EKG showing normal sinus rhythm with no changes from last EKG done on 05/16/21 Vent. Rate : 073 BPM ? ? Atrial Rate : 073 BPM ?? P-R Int : 128 ms? QRS Dur : 084 ms ? ? QT Int : 378 ms ? ? ? P-R-T Axes : 066 038 070 degrees ?? QTc Int : 416 ms ? Normal sinus rhythm Normal ECG When compared with ECG of 16-MAY-2021 14:17, No significant change was found Radiology Impression Discussion of test interpretation with radiology: I have reviewed the radiologist's reading. Radiologist Impression: I have independently reviewed the right shoulder x-ray showing no fracture, dislocation, and calcific tendinitis/bursitis. EXAMINATION: XR SHOULDER, RIGHT CLINICAL INFORMATION: Pain and difficulty moving on? COMPARISON: Chest x-ray of May 16, 2021? TECHNIQUE: Three views of the right shoulder. FINDINGS: There is no evidence of acute fracture or dislocation of the right shoulder. There is minimal spurring about the glenohumeral joint without joint space narrowing. There is prominent calcification seen about site of insertion of the supraspinatus tendon as well as the subacromial region consistent with calcific tendinitis/bursitis.? XR/XR shoulder RT min 2V IMPRESSION: Calcific tendinitis/bursitis. Dictated By: Aneesh Falcon MD Signed By: <Electronically signed by Aneesh Falcon MD in OV> 12/10/22 1541 DD/ 1414 Discharge Plan Discharge Clinical Impression: Suicidal ideation, Depression Patient Disposition: Still a Patient Prescriptions: No Action quetiapine [Seroquel] 400 mg Tablet 400 mg PO BEDTIME quetiapine [Seroquel] 300 mg Tablet 300 mg PO BEDTIME quetiapine [Seroquel] 100 mg Tablet 100 mg PO QAM levothyroxine 25 mcg Tablet 25 mcg PO DAILY baclofen 10 mg Tablet 10 mg PO BID PRN (Reason: Muscle Spasm) clonazepam 1 mg Tablet 1 mg PO TID chlorthalidone 25 mg Tablet 25 mg PO DAILY ramelteon [Rozerem] 8 mg Tablet 8 mg PO BEDTIME hydroxyzine pamoate [Vistaril] 25 mg Capsule 25 mg PO TID PRN (Reason: Anxiety) naproxen 500 mg Tablet 500 mg PO BID PRN (Reason: Pain, Moderate) Interventions: [place]-Suicide Risk Severity Scale Last Done: 12/11/22 05:21
[2022-12-10] MEDS: Acetaminophen 325 MG TABLET 650 MG PO (17:23)
--- NOTE | 2022-12-10 18:38 | PC.NURSE ---
Pt's friend Berna Delgado called and would like updates [phone]
[2022-12-10 21:08] VITALS: BP 120/86; PULSE 87; RESP 18; TEMP 37.1; O2SAT 96
[2022-12-10] MEDS: Ibuprofen 600 MG TABLET PO (22:40)
[2022-12-10] MEDS: QUEtiapine Fumarate 100 MG TABLET PO (22:41)
--- NOTE | 2022-12-11 05:17 | PC.NURSE ---
Patient slept through the night, no distress observed/reported, VSS, behavior appropriate and non concerning, med rec just completed, no record on pharmacy claim history but [facility], which was missed at time of triage, Seroquel 100 mg administered at bed time per patient's request, patient's disposition care team section 12 inpatient bed search, will continue to monitor.
[2022-12-11 05:37] VITALS: BP 127/91; PULSE 81; RESP 16; TEMP 37.1; O2SAT 95
--- NOTE | 2022-12-11 06:42 | PC.NURSE ---
Patient is COVID +, follows quarantine protocol, will continue to monitor.
[2022-12-11 07:45] VITALS: BP 112/88; PULSE 78; RESP 12; TEMP 36.1; O2SAT 94
--- NOTE | 2022-12-11 08:02 | PC.NURSE ---
PT SLEEPING. BEDSEARCH CONTINUES.
[2022-12-11] MEDS: NaPROXEN 500 MG TABLET PO (11:52)
[2022-12-11] MEDS: hydroCHLOROthiazide 25 MG TABLET PO (11:52)
[2022-12-11] MEDS: Levothyroxine Sodium 25 MCG TABLET PO (11:52)
--- NOTE | 2022-12-11 12:06 | PC.NURSE ---
PT REMAINED >95% ON RA DURING TRIAL AMBULATION.
[2022-12-11] MEDS: clonazePAM 1 MG TABLET PO ×2 (12:44→21:17)
[2022-12-11] MEDS: diphenhydrAMINE HCL 25 MG CAPSULE PO (12:44)
[2022-12-11] MEDS: guaiFENesin DM 600/30 1 TAB TAB.ER.12H 2 TAB PO ×2 (12:46→20:24)
--- NOTE | 2022-12-11 13:01 | PC.NURSE ---
REPORT TO [facility].
--- NOTE | 2022-12-11 16:53 | PHA.MEDREC ---
Pharmacy Consult ? Medication Reconciliation Pharmacy has completed the medication reconciliation. Pt medication list from [facility]
[2022-12-11 17:51] VITALS: BP 132/82; PULSE 88; RESP 18; TEMP 36.6; O2SAT 96
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
[2022-12-11] MEDS: Acetaminophen 325 MG TABLET 650 MG PO (20:23)
[2022-12-11] MEDS: Baclofen 10 MG TABLET PO (20:24)
[2022-12-11] MEDS: hydrOXYzine HCL 25 MG TABLET PO (20:24)
[2022-12-11] MEDS: QUEtiapine Fumarate 400 MG TABLET PO (21:17)
[2022-12-11 21:34] VITALS: BP 141/84; PULSE 76; TEMP 36.6; O2SAT 99
[2022-12-12 08:10] VITALS: BP 93/74; PULSE 77; RESP 18; TEMP 36.6; O2SAT 99
[2022-12-12] MEDS: QUEtiapine Fumarate 300 MG TABLET PO (08:44)
[2022-12-12] MEDS: Levothyroxine Sodium 25 MCG TABLET PO (08:44)
[2022-12-12] MEDS: NaPROXEN 500 MG TABLET PO ×2 (08:45→21:10)
[2022-12-12] MEDS: guaiFENesin DM 600/30 1 TAB TAB.ER.12H 2 TAB PO ×2 (08:45→21:11)
[2022-12-12] MEDS: hydroCHLOROthiazide 25 MG TABLET PO (08:46)
[2022-12-12] MEDS: clonazePAM 1 MG TABLET PO ×2 (08:46→21:11)
[2022-12-12 10:17] LABS: Alanine Aminotransferase 19 U/L (0-31); Albumin Level 3.9 g/dL (3.5-5.0); Alkaline Phosphatase 74 U/L (39-117); Anion Gap 15 (12-20); Aspartate Amino Transferase 28 U/L (5-31); Bilirubin Total 0.3 mg/dL (0.0-1.0); Blood Urea Nitrogen 11 mg/dL (9-16); Calcium 9.1 mg/dL (8.4-10.2); Carbon Dioxide 22 mmol/L (22-29); Chloride 102 mmol/L (96-108); Cholesterol 155 mg/dL; Creatinine Clr Calc Pharmacy 79.7; Estimated Glomerular Filt Rate > 60; Glucose Fasting 104 mg/dL (60-99); HDL Cholesterol 39 mg/dL; LDL Cholesterol Calculated 102 mg/dl; Potassium 4.1 mmol/L (3.3-5.1); Sodium 135 mmol/L (135-145); Thyroid Stimulating Hormone 3.25 uIU/mL (0.32-4.0); Triglycerides 70 mg/dL
[2022-12-12 10:30] LABS: Folate 13.6 ng/mL (> or = 4.0); Vitamin B12 432 pg/mL (200-900)
[2022-12-12 14:30] VITALS: BP 103/62; PULSE 88; RESP 18; TEMP 36.6; O2SAT 98
[2022-12-12] MEDS: Acetaminophen 325 MG TABLET 650 MG PO (14:33)
[2022-12-12 18:00] VITALS: BP 124/83; PULSE 77; RESP 16; TEMP 36.9; O2SAT 99
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
[2022-12-12] MEDS: Acetaminophen 325 MG TABLET 975 MG PO (21:10)
[2022-12-12] MEDS: hydrOXYzine HCL 25 MG TABLET PO (21:10)
[2022-12-12] MEDS: QUEtiapine Fumarate 400 MG TABLET PO (21:25)
[2022-12-13 08:35] VITALS: BP 93/51; PULSE 72; RESP 18; TEMP 35.8; O2SAT 99
[2022-12-13] MEDS: QUEtiapine Fumarate 300 MG TABLET PO (08:47)
[2022-12-13] MEDS: guaiFENesin DM 600/30 1 TAB TAB.ER.12H 2 TAB PO ×2 (08:47→21:13)
[2022-12-13] MEDS: clonazePAM 1 MG TABLET PO ×2 (08:47→21:14)
[2022-12-13] MEDS: Levothyroxine Sodium 25 MCG TABLET PO (08:47)
--- NOTE | 2022-12-13 09:13 | PC.NURSE ---
Deven held per Dr Curry for reduced BP
--- NOTE | 2022-12-13 10:21 | HO.PSYCHPN ---
Subjective Subjective Date of Service: 12/13/22 Reason For Visit: SI Subjective Notes: Conditional Voluntary Interim History: Patient was seen and discussed in rounds today. She continues to be on COVID isolation/quarantine. She only has a slight sore throat so far. Today her blood pressure was low and her hydrochlorothiazide was held. Eating and sleeping adequately. No changes were made today she has been pleasant and cooperative. No behavioral issues so far P Medication Compliance: Yes Side effects from medications: No Attending Groups: No (COVID isolation) Review of Systems Review of Systems Slight sore throat Yes all other systems are reviewed and are negative Diagnostics Vital Signs (24Hr): Vital Signs - 24 hr 12/12/22 14:30 12/12/22 18:00 12/13/22 08:35 Temperature 97.9 F 98.4 F 96.5 F L Pulse Rate 88 77 72 Respiratory Rate 18 16 18 Blood Pressure 103/62 124/83 93/51 L Pulse Oximetry 98 99 99 Oxygen Delivery Method Room Air Room Air Room Air BMI result Body Mass Index 28.9 Labs 12/10/22 11:02 12/12/22 09:05 Labs: Laboratory Results - last 48 hr 12/12/22 12/12/22 09:05 09:05 Sodium 135 Potassium 4.1 Chloride 102 Carbon Dioxide 22 Anion Gap 15 BUN 11 Creatinine 0.71 Estim Creat Clear Calc 79.7 Estimated GFR > 60 Fasting Glucose 104 H Calcium 9.1 Total Bilirubin 0.3 AST 28 ALT 19 Alkaline Phosphatase 74 Total Protein 8.0 Albumin 3.9 Triglycerides 70 Cholesterol 155 LDL Cholesterol, Calc 102 HDL Cholesterol 39 Vitamin B12 432 Folate 13.6 TSH 3.25 Imaging Radiology Impressions: ITS Impressions Shoulder X-Ray 12/10/22 14:14 IMPRESSION: Calcific tendinitis/bursitis. Medications Medications Current Medications Acetaminophen (Acetaminophen 325 Mg Tablet) 975 mg PO Q6H PRN PRN Reason: pain/fever Last Admin: 12/12/22 21:10 Dose: 975 mg Al Hydroxide/Mg Hydroxide (Magnesium Hydrox/Alum Hydrox 30 Ml Oral.Susp) 30 ml PO Q6H PRN PRN Reason: Heartburn/Nausea Baclofen (Baclofen 10 Mg Tablet) 10 mg PO BID PRN PRN Reason: Muscle Spasm Last Admin: 12/11/22 20:24 Dose: 10 mg Clonazepam (Clonazepam 1 Mg Tablet) 1 mg PO BID [facility] Last Admin: 12/13/22 08:47 Dose: 1 mg Guaifenesin/Dextromethorphan (Guaifenesin Dm 600/30 1 Tab Tab.Er.12h) 2 tab PO BID [facility] Last Admin: 12/13/22 08:47 Dose: 2 tab Hydrochlorothiazide (Hydrochlorothiazide 25 Mg Tablet) 25 mg PO DAILY [facility] Last Admin: 12/13/22 09:03 Dose: Not Given Hydroxyzine HCl (Hydroxyzine Hcl 25 Mg Tablet) 25 mg PO TID PRN PRN Reason: Anxiety Last Admin: 12/12/22 21:10 Dose: 25 mg Levothyroxine Sodium (Levothyroxine Sodium 25 Mcg Tablet) 25 mcg PO DAILY@0600 [facility] Last Admin: 12/13/22 08:47 Dose: 25 mcg Magnesium Hydroxide (Milk Of Magnesia 30 Ml Oral.Susp) 30 ml PO DAILY PRN PRN Reason: Constipation Naproxen (Naproxen 500 Mg Tablet) 500 mg PO BID PRN PRN Reason: Pain, Moderate Last Admin: 12/12/22 21:10 Dose: 500 mg Non-Formulary Medication (Ramelteon [Rozerem]) 8 mg PO BEDTIME PRN PRN Reason: sleep Quetiapine Fumarate (Quetiapine Fumarate 400 Mg Tablet) 400 mg PO BEDTIME [facility] Last Admin: 12/12/22 21:25 Dose: 400 mg Quetiapine Fumarate (Quetiapine Fumarate 300 Mg Tablet) 300 mg PO DAILY [facility] Last Admin: 12/13/22 08:47 Dose: 300 mg Trazodone HCl (Trazodone Hcl 50 Mg Tablet) 50 mg PO BEDTIME PRN PRN Reason: Insomnia Allergies Allergies Allergy/AdvReac Type Severity Reaction Status Date / Time haloperidol [From HALDOL] Allergy Intermediate LOWERS Verified 12/10/22 10:57 HEART RATE Assessment & Plan Assessment & Plan (1) PTSD (post-traumatic stress disorder): Status: Acute Code(s): F43.10 - Post-traumatic stress disorder, unspecified (2) Bipolar 1 disorder: Status: Acute Code(s): F31.9 - Bipolar disorder, unspecified (3) Hypothyroidism: Status: Acute Code(s): E03.9 - Hypothyroidism, unspecified (4) Suicidal ideation: Status: Acute Code(s): R45.851 - Suicidal ideations Plan restart home medications regimen, observe for improvement, discharge planning 12/13: Continue current regimen and plans Reason for contiued inpatient stay Substantial Risk for: med/psych decompensation Time Spent With Patient Time: Total time managing care of this patient today ____ minutes.
[2022-12-13 13:21] VITALS: BP 101/84; PULSE 82; RESP 18; TEMP 35.8; O2SAT 99
--- NOTE | 2022-12-13 13:22 | PC.NURSE ---
Patient resting in room, denies pain, denies any respiratory symptoms except for rare cough.
[2022-12-13] MEDS: QUEtiapine Fumarate 400 MG TABLET PO (21:13)
[2022-12-13] MEDS: Baclofen 10 MG TABLET PO (21:14)
[2022-12-13] MEDS: NaPROXEN 500 MG TABLET PO (21:14)
[2022-12-13] MEDS: Acetaminophen 325 MG TABLET 975 MG PO (21:15)
[2022-12-13 21:30] VITALS: BP 119/84; PULSE 82; RESP 18; TEMP 36.8; O2SAT 99
--- NOTE | 2022-12-14 02:28 | PC.NURSE ---
Pt reported this evening that she is allergic to Trazodone and develops hives and pruritis when she takes Trazodone.
[2022-12-14] MEDS: clonazePAM 1 MG TABLET PO ×2 (09:09→21:46)
[2022-12-14] MEDS: guaiFENesin DM 600/30 1 TAB TAB.ER.12H 2 TAB PO ×2 (09:09→21:47)
[2022-12-14] MEDS: hydroCHLOROthiazide 25 MG TABLET PO (09:09)
[2022-12-14] MEDS: Levothyroxine Sodium 25 MCG TABLET PO (09:09)
--- NOTE | 2022-12-14 09:31 | HO.PSYCHPN ---
Subjective Subjective Date of Service: 12/14/22 Reason For Visit: SI Subjective Notes: Conditional Voluntary Interim History: Patient was seen and discussed in rounds today. She continues to be on COVID isolation/quarantine. She states that her sore throat is slightly better. She continues to have some auditory hallucination. No SI. Eating and sleeping adequately. No changes were made today Medication Compliance: Yes Side effects from medications: No Attending Groups: No (COVID isolation) Review of Systems Review of Systems Slight sore throat Yes all other systems are reviewed and are negative Mental Status Exam Mental Status Exam Narrative: In today's visit she is in bed. Speech is normal. Good eye contact. Affect is contained and appropriate. No acute signs of psychosis but admits to auditory hallucinations. No SI. Cognitively could not be assessed. Judgment could not be assessed Diagnostics Vital Signs (24Hr): Vital Signs - 24 hr 12/13/22 13:21 12/13/22 21:30 Temperature 96.5 F L 98.3 F Pulse Rate 82 82 Respiratory Rate 18 18 Blood Pressure 101/84 119/84 Pulse Oximetry 99 99 Oxygen Delivery Method Room Air Room Air BMI result Body Mass Index 28.9 Labs 12/10/22 11:02 12/12/22 09:05 Labs: Laboratory Results - last 48 hr 12/12/22 12/12/22 09:05 09:05 Sodium 135 Potassium 4.1 Chloride 102 Carbon Dioxide 22 Anion Gap 15 BUN 11 Creatinine 0.71 Estim Creat Clear Calc 79.7 Estimated GFR > 60 Fasting Glucose 104 H Calcium 9.1 Total Bilirubin 0.3 AST 28 ALT 19 Alkaline Phosphatase 74 Total Protein 8.0 Albumin 3.9 Triglycerides 70 Cholesterol 155 LDL Cholesterol, Calc 102 HDL Cholesterol 39 Vitamin B12 432 Folate 13.6 TSH 3.25 Imaging Radiology Impressions: ITS Impressions Shoulder X-Ray 12/10/22 14:14 IMPRESSION: Calcific tendinitis/bursitis. Medications Medications Current Medications Acetaminophen (Acetaminophen 325 Mg Tablet) 975 mg PO Q6H PRN PRN Reason: pain/fever Last Admin: 12/13/22 21:15 Dose: 975 mg Al Hydroxide/Mg Hydroxide (Magnesium Hydrox/Alum Hydrox 30 Ml Oral.Susp) 30 ml PO Q6H PRN PRN Reason: Heartburn/Nausea Baclofen (Baclofen 10 Mg Tablet) 10 mg PO BID PRN PRN Reason: Muscle Spasm Last Admin: 12/13/22 21:14 Dose: 10 mg Clonazepam (Clonazepam 1 Mg Tablet) 1 mg PO BID [facility] Last Admin: 12/14/22 09:09 Dose: 1 mg Guaifenesin/Dextromethorphan (Guaifenesin Dm 600/30 1 Tab Tab.Er.12h) 2 tab PO BID [facility] Last Admin: 12/14/22 09:09 Dose: 2 tab Hydrochlorothiazide (Hydrochlorothiazide 25 Mg Tablet) 25 mg PO DAILY [facility] Last Admin: 12/14/22 09:09 Dose: 25 mg Hydroxyzine HCl (Hydroxyzine Hcl 25 Mg Tablet) 25 mg PO TID PRN PRN Reason: Anxiety Last Admin: 12/12/22 21:10 Dose: 25 mg Levothyroxine Sodium (Levothyroxine Sodium 25 Mcg Tablet) 25 mcg PO DAILY@0600 [facility] Last Admin: 12/14/22 09:09 Dose: 25 mcg Magnesium Hydroxide (Milk Of Magnesia 30 Ml Oral.Susp) 30 ml PO DAILY PRN PRN Reason: Constipation Naproxen (Naproxen 500 Mg Tablet) 500 mg PO BID PRN PRN Reason: Pain, Moderate Last Admin: 12/13/22 21:14 Dose: 500 mg Non-Formulary Medication (Ramelteon [Rozerem]) 8 mg PO BEDTIME PRN PRN Reason: sleep Quetiapine Fumarate (Quetiapine Fumarate 400 Mg Tablet) 400 mg PO BEDTIME [facility] Last Admin: 12/13/22 21:13 Dose: 400 mg Quetiapine Fumarate (Quetiapine Fumarate 300 Mg Tablet) 300 mg PO DAILY [facility] Last Admin: 12/13/22 08:47 Dose: 300 mg Allergies Allergies Allergy/AdvReac Type Severity Reaction Status Date / Time haloperidol [From HALDOL] Allergy Intermediate LOWERS Verified 12/10/22 10:57 HEART RATE trazodone AdvReac Intermediate Hives Verified 12/13/22 23:59 Assessment & Plan Assessment & Plan (1) PTSD (post-traumatic stress disorder): Status: Acute Code(s): F43.10 - Post-traumatic stress disorder, unspecified (2) Bipolar 1 disorder: Status: Acute Code(s): F31.9 - Bipolar disorder, unspecified (3) Hypothyroidism: Status: Acute Code(s): E03.9 - Hypothyroidism, unspecified (4) Suicidal ideation: Status: Acute Code(s): R45.851 - Suicidal ideations Plan 12/14: Continue current plans and regimen Reason for contiued inpatient stay Substantial Risk for: med/psych decompensation Time Spent With Patient Time: Total time managing care of this patient today ____ minutes.
[2022-12-14] MEDS: QUEtiapine Fumarate 300 MG TABLET PO (09:37)
[2022-12-14 10:08] VITALS: BP 133/85; PULSE 75; RESP 16; TEMP 35.9; O2SAT 98
[2022-12-14] MEDS: Acetaminophen 325 MG TABLET 975 MG PO (12:37)
[2022-12-14 21:45] VITALS: BP 113/75; PULSE 78; RESP 16; TEMP 36.6; O2SAT 95
[2022-12-14] MEDS: QUEtiapine Fumarate 400 MG TABLET PO (21:46)
[2022-12-14] MEDS: NaPROXEN 500 MG TABLET PO (21:46)
[2022-12-14] MEDS: Baclofen 10 MG TABLET PO (21:47)
[2022-12-15] MEDS: Levothyroxine Sodium 25 MCG TABLET PO (06:34)
[2022-12-15 08:40] VITALS: BP 98/73; PULSE 70; RESP 18; TEMP 36.7; O2SAT 99
[2022-12-15] MEDS: clonazePAM 1 MG TABLET PO ×2 (08:56→21:15)
[2022-12-15] MEDS: guaiFENesin DM 600/30 1 TAB TAB.ER.12H 2 TAB PO ×2 (08:57→21:15)
[2022-12-15] MEDS: QUEtiapine Fumarate 300 MG TABLET PO (08:57)
[2022-12-15] MEDS: hydroCHLOROthiazide 25 MG TABLET PO (08:58)
--- NOTE | 2022-12-15 14:48 | HO.PSYCHPN ---
Subjective Subjective Date of Service: 12/15/22 Reason For Visit: SI Interim History: calm, cooperative. seen with SW and laundry or dry cleaners counter clerk. reports her mood has improved substantially, no SI. thinking about discharge. SW will investigate options for helping get furniture for pt's apartment. per staff, anx 5, denies dep. taking meds and meals. c/o body aches, pain in hands. sleeping well. remains in isolation for COVID. Mental Status Exam Mental Status Exam Narrative: lying in bed, covered in blanket to her chin. calm, cooperative. no PMA/PMR. speech nml rate, decr amount, nml loudness and tone, nml latency. thoughts linear and logical. affect constricted, normo-intense, non-labile. mood improved. no SI, AH resolving. Diagnostics Vital Signs (24Hr): Vital Signs - 24 hr 12/14/22 21:45 12/15/22 08:40 Temperature 97.8 F 98.0 F Pulse Rate 78 70 Respiratory Rate 16 18 Blood Pressure 113/75 98/73 Pulse Oximetry 95 99 Oxygen Delivery Method Room Air Room Air BMI result Body Mass Index 28.9 Labs 12/10/22 11:02 12/12/22 09:05 Imaging Radiology Impressions: ITS Impressions Shoulder X-Ray 12/10/22 14:14 IMPRESSION: Calcific tendinitis/bursitis. Medications Medications Current Medications Acetaminophen (Acetaminophen 325 Mg Tablet) 975 mg PO Q6H PRN PRN Reason: pain/fever Last Admin: 12/14/22 12:37 Dose: 975 mg Al Hydroxide/Mg Hydroxide (Magnesium Hydrox/Alum Hydrox 30 Ml Oral.Susp) 30 ml PO Q6H PRN PRN Reason: Heartburn/Nausea Baclofen (Baclofen 10 Mg Tablet) 10 mg PO BID PRN PRN Reason: Muscle Spasm Last Admin: 12/14/22 21:47 Dose: 10 mg Clonazepam (Clonazepam 1 Mg Tablet) 1 mg PO BID [facility] Last Admin: 12/15/22 08:56 Dose: 1 mg Guaifenesin/Dextromethorphan (Guaifenesin Dm 600/30 1 Tab Tab.Er.12h) 2 tab PO BID [facility] Last Admin: 12/15/22 08:57 Dose: 2 tab Hydrochlorothiazide (Hydrochlorothiazide 25 Mg Tablet) 25 mg PO DAILY [facility] Last Admin: 12/15/22 08:58 Dose: 25 mg Hydroxyzine HCl (Hydroxyzine Hcl 25 Mg Tablet) 25 mg PO TID PRN PRN Reason: Anxiety Last Admin: 12/12/22 21:10 Dose: 25 mg Levothyroxine Sodium (Levothyroxine Sodium 25 Mcg Tablet) 25 mcg PO DAILY@0600 [facility] Last Admin: 12/15/22 06:34 Dose: 25 mcg Magnesium Hydroxide (Milk Of Magnesia 30 Ml Oral.Susp) 30 ml PO DAILY PRN PRN Reason: Constipation Naproxen (Naproxen 500 Mg Tablet) 500 mg PO BID PRN PRN Reason: Pain, Moderate Last Admin: 12/14/22 21:46 Dose: 500 mg Non-Formulary Medication (Ramelteon [Rozerem]) 8 mg PO BEDTIME PRN PRN Reason: sleep Quetiapine Fumarate (Quetiapine Fumarate 400 Mg Tablet) 400 mg PO BEDTIME [facility] Last Admin: 12/14/22 21:46 Dose: 400 mg Quetiapine Fumarate (Quetiapine Fumarate 300 Mg Tablet) 300 mg PO DAILY [facility] Last Admin: 12/15/22 08:57 Dose: 300 mg Allergies Allergies Allergy/AdvReac Type Severity Reaction Status Date / Time haloperidol [From HALDOL] Allergy Intermediate LOWERS Verified 12/10/22 10:57 HEART RATE trazodone AdvReac Intermediate Hives Verified 12/13/22 23:59 Assessment & Plan Assessment & Plan (1) PTSD (post-traumatic stress disorder): Status: Acute Code(s): F43.10 - Post-traumatic stress disorder, unspecified (2) Bipolar 1 disorder: Status: Acute Code(s): F31.9 - Bipolar disorder, unspecified (3) Hypothyroidism: Status: Acute Code(s): E03.9 - Hypothyroidism, unspecified (4) Suicidal ideation: Status: Acute Code(s): R45.851 - Suicidal ideations Plan 12/12: restart home medications regimen, observe for improvement, discharge planning. 12/13: Continue current regimen and plans. 12/14: Continue current regimen and plans. 12/15: continue current regimen. move toward concrete dispo planning. Reason for contiued inpatient stay Substantial Risk for: inability to function and rapid decompensation Time Spent With Patient Time: Total time managing care of this patient today _25___ minutes.
[2022-12-15] MEDS: Baclofen 10 MG TABLET PO (21:15)
[2022-12-15] MEDS: NaPROXEN 500 MG TABLET PO (21:15)
[2022-12-15] MEDS: QUEtiapine Fumarate 400 MG TABLET PO (21:15)
[2022-12-15 21:27] VITALS: BP 118/85; PULSE 78; RESP 16; TEMP 36.2; O2SAT 95
[2022-12-16] MEDS: Levothyroxine Sodium 25 MCG TABLET PO (06:31)
[2022-12-16 09:00] VITALS: BP 124/79; PULSE 67; RESP 18; TEMP 36.6; O2SAT 98
[2022-12-16] MEDS: guaiFENesin DM 600/30 1 TAB TAB.ER.12H 2 TAB PO ×2 (09:52→22:17)
[2022-12-16] MEDS: hydroCHLOROthiazide 25 MG TABLET PO (09:53)
[2022-12-16] MEDS: QUEtiapine Fumarate 300 MG TABLET PO (09:53)
[2022-12-16] MEDS: clonazePAM 1 MG TABLET PO ×2 (09:53→21:36)
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
[2022-12-16] MEDS: QUEtiapine Fumarate 400 MG TABLET PO (21:21)
[2022-12-16 21:30] VITALS: BP 124/74; PULSE 83; TEMP 36.4; O2SAT 98
[2022-12-16] MEDS: NaPROXEN 500 MG TABLET PO (22:17)
[2022-12-16] MEDS: Baclofen 10 MG TABLET PO (22:18)
[2022-12-16] MEDS: QUEtiapine Fumarate 100 MG TABLET PO (22:18)
[2022-12-17] MEDS: Levothyroxine Sodium 25 MCG TABLET PO (06:45)
[2022-12-17] MEDS: QUEtiapine Fumarate 300 MG TABLET PO (08:59)
[2022-12-17] MEDS: guaiFENesin DM 600/30 1 TAB TAB.ER.12H 2 TAB PO (08:59)
[2022-12-17] MEDS: hydroCHLOROthiazide 25 MG TABLET PO (08:59)
[2022-12-17] MEDS: clonazePAM 1 MG TABLET PO (09:00)
[2022-12-17 10:21] VITALS: BP 119/79; PULSE 75; RESP 16; TEMP 36.4; O2SAT 98
[2022-12-17] MEDS: NaPROXEN 500 MG TABLET PO (13:34)
== END 2022-12-17 13:49 | disposition home or self-care (01) | DRG 753 ==
LOC: HO.ED 12-11 12:49 → HO.PADLT16 12-11 16:46
PROVIDERS: Nurse Practitioner Family; Social Worker; Admitting Provider Psychiatry & Neurology Psychiatry; Emergency Provider Emergency Medicine Emergency Medical Services; Visit Provider Psychiatry & Neurology Psychiatry
DX: F31.9 Bipolar disorder, unspecified (principal); U07.1 COVID-19; R45.851 Suicidal ideations; E03.9 Hypothyroidism, unspecified; F43.12 Post-traumatic stress disorder, chronic; Z88.8 Allergy status to other drugs, medicaments and biological substances; Z79.890 Hormone replacement therapy; Z79.899 Other long term (current) drug therapy
CPT/HCPCS: 36415; 73030; 80053; 80061; 80143; 80179; 80307; 81003; 82077; 82607; 82746; 84443; 85025; 87635; 93005; 99285; S9485

== ENCOUNTER 2023-06-10 12:39 | Inpatient (IN) | payer MEDICAID, OTHER, SELFPAY ==
--- NOTE | ~2023-06-10 | XR_ITS ---
EXAMINATION: XR HIP, RIGHT CLINICAL INFORMATION: Pain COMPARISON: Lumbar spine x-ray September 2020 TECHNIQUE: Two views of the right hip. FINDINGS: Bone alignment is normal. No fracture or dislocation. Degenerative changes of the right hip joint with small osteophytes. Multiple soft tissue foreign bodies projecting over the right lower quadrant / buttock. These appear similar to September 2020 lumbar spine x-ray. XR/XR hip RT min 2V IMPRESSION: Mild degenerative changes of the right hip. Multiple soft tissue foreign bodies projecting over the right lower quadrant/buttock similar to lumbar spine x-ray September 2020.
--- NOTE | ~2023-06-10 | XR_ITS ---
EXAMINATION: XR LUMBOSACRAL SPINE CLINICAL INFORMATION: Back pain COMPARISON: Previous lumbar spine x-ray September 2020 TECHNIQUE: Three views of the lumbosacral spine. FINDINGS: Bone alignment is normal. No fracture or dislocation. Mild spondylitic degenerative spondylosis at L2-L3 and L3-L4. Normal disc spaces. Lower lumbar spine facet arthritis. Multiple soft tissue foreign bodies projecting over the right lower quadrant. These appear similar to September 2020 exam. XR/XR lumbar spine 2-3V IMPRESSION: Mild degenerative changes. Soft tissue foreign bodies similar to September 2020 exam.
[2023-06-10 12:43] VITALS: BP 134/72; PULSE 94; O2SAT 96
[2023-06-10 12:52] VITALS: BP 108/83; PULSE 94; RESP 16; TEMP 37; O2SAT 100; BMI 30.2
--- NOTE | 2023-06-10 12:54 | ED.GENADULT ---
HPI - General Adult General Chief complaint: Psychiatric Symptoms Stated complaint: si w/plan from [facility] per emss Time Seen by Provider: 06/10/23 13:18 Source: patient and EMS Mode of arrival: EMS Limitations: no limitations History of Present Illness HPI narrative: This is a 57-year-old female history of PTSD, bipolar disorder, hypothyroidism, hepatitis-C presenting to the emergency department via ambulance coming from [facility] where she was being seen by 1 of her primary care provider's coming in with suicidal ideation, depression, anxiety, patient tells me that her mother recently and she has been struggling with her , she reports that she has been having increasing depression, anxiety and suicidal thoughts with intent to harm herself in any way possible. Patient reports that yesterday she injected herself with a dirty needle with an unknown substance she thinks it may have been cocaine. She also reports she has been sleeping with a knife underneath her bed and she is not sure how the knife got there. She reports sleepless nights the past few weeks, she is tearful upon history taking and appears anxious. Patient denies any medical complaints at this time. Denies homicidal ideation. Denies visual, auditory and tactile hallucinations. Denies alcohol and tobacco use. Related Data Home Medications Medication Instructions Recorded Confirmed amlodipine 10 mg tablet 10 mg PO QAM 06/10/23 06/10/23 cetirizine 10 mg tablet 10 mg PO QAM 06/10/23 06/10/23 clonazepam 1 mg tablet 1 mg PO TID 06/10/23 06/10/23 levothyroxine 50 mcg tablet 50 mcg PO QAM 06/10/23 06/10/23 Previous Rx's Medication Instructions Recorded quetiapine 300 mg tablet 300 mg PO DAILY 30 days #30 tabs 12/16/22 quetiapine 400 mg tablet (Seroquel) 400 mg PO BEDTIME 30 days #30 tabs 12/16/22 Allergies Allergy/AdvReac Type Severity Reaction Status Date / Time haloperidol [From HALDOL] Allergy Intermediate LOWERS Verified 06/10/23 12:47 HEART RATE trazodone AdvReac Intermediate Hives Verified 06/10/23 12:47 Review of Systems Review of Systems: Constitutional : No Weight loss, No Fever, No Chills, No Fatigue, No Malaise ENT/Mouth : No sore throat, No Rhinorrhea Eyes: No Eye Pain, No Swelling, No Redness Cardiovascular : No Chest Pain, No SOB, No Dyspnea on Exertion, No Orthopnea, No Edema, No Palpitations Respiratory : No Cough, No Sputum, No Wheezing Gastrointestinal : No Nausea, No Vomiting, No Diarrhea, No Constipation, No abdominal Pain, No Hematochezia, No Melena Genitourinary : No Dysuria, No Urinary Frequency, No Hematuria, Musculoskeletal : No joint pain, No Myalgias, No Joint Swelling Skin : No Skin Lesions, No rash Neuro : No Weakness, No Numbness, No Dizziness, No Headache Psych : + Anxiety/Panic, + Depression, + SI, + HI All other systems reviewed and are negative Yes all other systems are reviewed and are negative FOR[facility]LY [facility] Past Medical History Attestation statement: The following information was validated with the patient. Source: old records reviewed and nursing notes reviewed Medical History Bipolar 1 disorder Chronic post-traumatic stress disorder (PTSD) Depression Hypothyroidism Social History Social History Household Members: Family Housing: House Do you presently have visiting nurse or other home services: No Unable to assess alcohol history related to: Unknown Alcohol intake: unknown Patient Tobacco Use Status: Never used Tobacco Second Hand Smoke Exposure: No Use of substances other than those prescribed or required for medical reasons: Yes Substance Use Type: Heroin Last Used Substance: Hours (ago) Advance Directives: No Advance Directives Information Provided: Yes service: No Sexual orientation: Straight/Heterosexual Physical Exam ED Vital Signs: Vital Signs - 24 hr 06/10/23 12:52 06/10/23 20:31 06/11/23 06:23 Temperature 98.6 F 98.2 F 97.8 F Pulse Rate 94 95 84 Respiratory Rate 16 18 13 Blood Pressure 108/83 125/95 H 112/68 Pulse Oximetry 100 99 94 Oxygen Delivery Method Room Air Room Air Room Air BMI result Body Mass Index 30.2 Vital signs stable Appearance: Alert.? Oriented X3.? No acute distress.? Head: Normocephalic, atraumatic, no step-offs or deformities Eyes: Pupils equal, round and reactive to light.? ENT: Pharynx normal.? Neck: Normal inspection.? Neck supple.? CVS: Normal heart rate and rhythm.? Pulses normal.? Respiratory: No respiratory distress.? Breath sounds normal.? Abdomen: Soft and nontender.? Skin: Skin warm and dry.? Normal skin color.? Normal skin turgor.? Patient with bruising to bilateral upper extremities. Extremities: No lower extremity edema.? No calf ttp. 5/5 strength to bilateral upper and lower extremities Neuro: Oriented X 3.? No motor deficit.? No sensory deficit. CN 2-12 intact Course Reevaluation(s) Reevaluation #1: Patient adamantly refusing labs. At this time patient be placed into observation. At time observation was started patient is comp, vital signs stable. Time: 15:45 Reevaluation #2: Spoke to patient about transmission of disease advised her to follow-up with PCP due to injection with dirty needle, history of hepatitis-C in the past and IV drug abuse. She will follow-up with PCP Time: 15:51 Reevaluation #3: 06/11 705 AM waiting for crisis eval,stable overnight Time: 07:07 Medications Administered Generic Name Dose Route Start Last Admin Trade Name Freq PRN Reason Stop Dose Admin Clonazepam 1 mg 06/10/23 21:00 06/10/23 21:14 Clonazepam 1 Mg Tablet PO 1 mg TID ALEKSANDRA Administration Levothyroxine Sodium 50 mcg 06/11/23 06:00 06/11/23 06:11 Levothyroxine Sodium 50 Mcg Tablet PO 50 mcg DAILY@0600 ALEKSANDRA Administration Quetiapine Fumarate 400 mg 06/10/23 21:00 06/10/23 21:14 Quetiapine Fumarate 400 Mg Tablet PO 400 mg BEDTIME ALEKSANDRA Administration Discontinued Medications Generic Name Dose Route Start Last Admin Trade Name Freq PRN Reason Stop Dose Admin Clonazepam 1 mg 06/10/23 14:18 06/10/23 14:23 Clonazepam 1 Mg Tablet PO 06/10/23 14:19 1 mg ONCE ONE Administration Lorazepam 1 mg 06/10/23 13:18 06/10/23 14:17 Lorazepam 1 Mg Tablet PO 06/10/23 13:19 Not Given ONCE ONE Medical Decision Making Medical Decision Making MDM Narrative: This is a 57-year-old female presenting with anxiety, depression, suicidal ideation. Physical examination significant for bruising to bilateral upper extremities. Patient with a flat affect. Tearful. Anxious appearing. This is likely anxiety, depression, bipolar disorder with suicidal ideation and possibly polysubstance abuse. Unlikely metabolic derangements. Plan medical clearance evaluation by behavioral health team. Differential Diagnosis Differential Diagnoses: The differential diagnosis associated with the presentation includes This is likely anxiety, depression, bipolar disorder with suicidal ideation and possibly polysubstance abuse. Unlikely metabolic derangements. Admission/Observation Consideration of admission/observation: Escalation of care including admission/observation considered likely Consult Healthcare Provider Management of the patient was discussed with: Behavioral Health Provider Lab Data MDM Lab Attestation statement: I reviewed the patient's lab results. 06/10/23 18:07 06/10/23 18:07 Labs: Lab Results 06/10/23 06/10/23 06/10/23 Range/Units 17:09 17:09 18:07 WBC 6.3 (4.8-10.8) X10*3/uL RBC 4.20 (4.20-5.50) X10*6/uL Hgb 12.9 (12.0-16.0) g/dl Hct 39.4 (37.0-47.0) % MCV 93.8 (80.0-98.0) fL MCH 30.7 (27.0-33.0) pg MCHC 32.7 (31.0-35.0) g/dl RDW 13.5 (11.0-16.0) % Plt Count 256 D (160-400) X10*3/uL MPV 9.6 (9.4-12.3) fL Immature Gran % (Auto) 0.5 H (0.0-0.4) % Neut % (Auto) 56.5 (45-73) % Lymph % (Auto) 34.0 (20-40) % [place] % (Auto) 7.6 (2-11) % Eos % (Auto) 1.1 (0-4) % Baso % (Auto) 0.3 (0-2) % Lymph # (Auto) 2.2 (1.2-4.9) X10*3/uL [place] # (Auto) 0.5 (0.1-1.2) X10*3/uL Eos # (Auto) 0.1 (0.0-0.4) X10*3/uL Baso # (Auto) 0.0 (0.0-0.2) X10*3/uL Abs Immat Gran (auto) 0.03 (0.00-0.03) X10*3/uL Absolute Neuts (auto) 3.6 (2.0-8.3) x10*3/uL Absolute Nucleated RBC 0.000 (0.0-0.012) X10*3/uL Nucleated RBC % (auto) 0.0 (0.0-0.2) /100WBC Sodium (135-145) mmol/L Potassium (3.3-5.1) mmol/L Chloride (96-108) mmol/L Carbon Dioxide (22-29) mmol/L Anion Gap (12-20) BUN (9-16) mg/dL Creatinine (0.5-1.4) mg/dL Estim Creat Clear Calc Estimated GFR Random Glucose (60-115) mg/dL Calcium (8.4-10.2) mg/dL Magnesium (1.6-2.6) mg/dL Total Bilirubin (0.0-1.0) mg/dL AST (5-31) U/L ALT (0-31) U/L Alkaline Phosphatase (39-117) U/L Total Protein (6.5-8.0) g/dL Albumin (3.5-5.0) g/dL Urine Color Yellow Urine Appearance Clear Urine pH 6.5 (5.0-9.0) Ur Specific [place] 1.010 (1.005-1.025) Urine Protein Trace (Neg-Trace) mg/dL Urine Glucose (UA) Negative (Negative) mg/dL Urine Ketones Negative (Negative) mg/dL Urine Blood Negative (Negative) Urine Nitrite Negative (Negative) Ur Leukocyte Esterase Small (1+) H (Negative) Urine RBC 0-2 (0-2) /HPF Urine WBC 11-20 H (0-5) /HPF Ur Squamous Epith Cells 3-5 (0-2) /HPF Urine Bacteria None Seen (None Seen) Hyaline Casts 0-2 (0-2) /LPF Salicylates (15-30) mg/dL Urine Opiates Screen Not Detected (Not Detect) Urine Fentanyl Screen Not Detected (Not Detect) Acetaminophen (<30) mcg/mL Ur Barbiturates Screen Not Detected (Not Detect) Ur Phencyclidine Scrn Not Detected (Not Detect) Ur Amphetamines Screen Not Detected (Not Detect) U Benzodiazepines Scrn POSITIVE H (Not Detect) Urine Cocaine Screen POSITIVE H (Not Detect) U Marijuana (THC) Screen Not Detected (Not Detect) Ethyl Alcohol mg/dL 06/10/23 06/10/23 Range/Units 18:07 18:07 WBC (4.8-10.8) X10*3/uL RBC (4.20-5.50) X10*6/uL Hgb (12.0-16.0) g/dl Hct (37.0-47.0) % MCV (80.0-98.0) fL MCH (27.0-33.0) pg MCHC (31.0-35.0) g/dl RDW (11.0-16.0) % Plt Count (160-400) X10*3/uL MPV (9.4-12.3) fL Immature Gran % (Auto) (0.0-0.4) % Neut % (Auto) (45-73) % Lymph % (Auto) (20-40) % [place] % (Auto) (2-11) % Eos % (Auto) (0-4) % Baso % (Auto) (0-2) % Lymph # (Auto) (1.2-4.9) X10*3/uL [place] # (Auto) (0.1-1.2) X10*3/uL Eos # (Auto) (0.0-0.4) X10*3/uL Baso # (Auto) (0.0-0.2) X10*3/uL Abs Immat Gran (auto) (0.00-0.03) X10*3/uL Absolute Neuts (auto) (2.0-8.3) x10*3/uL Absolute Nucleated RBC (0.0-0.012) X10*3/uL Nucleated RBC % (auto) (0.0-0.2) /100WBC Sodium 142 (135-145) mmol/L Potassium 3.8 (3.3-5.1) mmol/L Chloride 103 (96-108) mmol/L Carbon Dioxide 30 H (22-29) mmol/L Anion Gap 13 (12-20) BUN 8 L (9-16) mg/dL Creatinine 0.64 (0.5-1.4) mg/dL Estim Creat Clear Calc 90.4 Estimated GFR > 60 Random Glucose 103 (60-115) mg/dL Calcium 10.0 D (8.4-10.2) mg/dL Magnesium 1.8 (1.6-2.6) mg/dL Total Bilirubin 0.5 (0.0-1.0) mg/dL AST 22 (5-31) U/L ALT 16 (0-31) U/L Alkaline Phosphatase 76 (39-117) U/L Total Protein 8.5 H (6.5-8.0) g/dL Albumin 4.2 (3.5-5.0) g/dL Urine Color Urine Appearance Urine pH (5.0-9.0) Ur Specific [place] (1.005-1.025) Urine Protein (Neg-Trace) mg/dL Urine Glucose (UA) (Negative) mg/dL Urine Ketones (Negative) mg/dL Urine Blood (Negative) Urine Nitrite (Negative) Ur Leukocyte Esterase (Negative) Urine RBC (0-2) /HPF Urine WBC (0-5) /HPF Ur Squamous Epith Cells (0-2) /HPF Urine Bacteria (None Seen) Hyaline Casts (0-2) /LPF Salicylates < 5.0 L (15-30) mg/dL Urine Opiates Screen (Not Detect) Urine Fentanyl Screen (Not Detect) Acetaminophen < 17 (<30) mcg/mL Ur Barbiturates Screen (Not Detect) Ur Phencyclidine Scrn (Not Detect) Ur Amphetamines Screen (Not Detect) U Benzodiazepines Scrn (Not Detect) Urine Cocaine Screen (Not Detect) U Marijuana (THC) Screen (Not Detect) Ethyl Alcohol < 10 mg/dL Core Measures AMI core measures followed: Yes Measure exclusions: not indicated Critical Care Time Critical Care Time Critical Care Time: No Discharge Plan Discharge Clinical Impression: Bipolar disorder, Suicidal ideations Patient Disposition: Still a Patient Prescriptions: No Action quetiapine 300 mg Tablet 300 mg PO DAILY 30 Days Qty: 30 0RF quetiapine [Seroquel] 400 mg Tablet 400 mg PO BEDTIME 30 Days Qty: 30 0RF cetirizine 10 mg tablet 10 mg PO QAM amlodipine 10 mg tablet 10 mg PO QAM levothyroxine 50 mcg tablet 50 mcg PO QAM clonazepam 1 mg tablet 1 mg PO TID Interventions: [place]-Suicide Risk Severity Scale Last Done: 06/11/23 01:15
[2023-06-10] MEDS: clonazePAM 1 MG TABLET PO ×2 (14:23→21:14)
[2023-06-10 17:21] LABS: Appearance Urine Clear; Color Urine Yellow; Glucose Urine UA Negative (Negative); Leukocyte Esterase Urine Small (1+) (Negative); Nitrite Urine Negative (Negative); PH 6.5 (5.0-9.0); UMIC TRIGGER UACC YES; Urine Blood Negative (Negative); Urine Ketones Negative (Negative); Urine Protein Trace mg/dL (Neg-Trace)
[2023-06-10 17:25] LABS: Bacteria Urine None Seen (None Seen); Hyaline Casts Urine 0-2 /LPF (0-2); RBC Urine 0-2 /HPF (0-2); UACC Culture Trigger YES
[2023-06-10 17:30] LABS: Amphetamine Screen Urine Not Detected (Not Detect); Barbiturates, Urine Not Detected (Not Detect); Benzodiazepines Screen Urine POSITIVE (Not Detect); Cannabinoid Screen Urine Not Detected (Not Detect); Cocaine Screen Urine POSITIVE (Not Detect); Fentanyl, urine Not Detected (Not Detect); Opiate Screen Urine Not Detected (Not Detect); Phencyclidine Screen Urine Not Detected (Not Detect)
[2023-06-10 18:12] LABS: MANUAL DIFF FLAG NO
[2023-06-10 18:17] LABS: Basophils Percent Auto 0.3 % (0-2); Eosinophils Absolute Auto 0.1 X10*3/uL (0.0-0.4); Eosinophils Percent Auto 1.1 % (0-4); Hematocrit 39.4 % (37.0-47.0); Hemoglobin 12.9 g/dl (12.0-16.0); Imm Gran Abs Auto 0.03 X10*3/uL (0.00-0.03); Imm Gran Pct Auto 0.5 % (0.0-0.4); Lymphocytes Absolute Auto 2.2 X10*3/uL (1.2-4.9); Mean Corpuscular HGB Conc 32.7 g/dl (31.0-35.0); Mean Corpuscular Hemoglobin 30.7 pg (27.0-33.0); Mean Corpuscular Volume 93.8 fL (80.0-98.0); Mean Platelet Volume 9.6 fL (9.4-12.3); Monocytes Absolute Auto 0.5 X10*3/uL (0.1-1.2); Monocytes Percent Auto 7.6 % (2-11); Neutrophils Absolute Auto 3.6 x10*3/uL (2.0-8.3); Neutrophils Percent Auto 56.5 % (45-73); Platelet Count 256 X10*3/uL (160-400); Red Cell Distribution Width 13.5 % (11.0-16.0); White Blood Count 6.3 X10*3/uL (4.8-10.8)
[2023-06-10 18:40] LABS: Alanine Aminotransferase 16 U/L (0-31); Albumin Level 4.2 g/dL (3.5-5.0); Alkaline Phosphatase 76 U/L (39-117); Aspartate Amino Transferase 22 U/L (5-31); Bilirubin Total 0.5 mg/dL (0.0-1.0); Blood Urea Nitrogen 8 mg/dL (9-16); Chloride 103 mmol/L (96-108); Creatinine Clr Calc Pharmacy 90.4; Estimated Glomerular Filt Rate > 60; Ethanol < 10 mg/dL; Glucose Random 103 mg/dL (60-115); Magnesium 1.8 mg/dL (1.6-2.6); Potassium 3.8 mmol/L (3.3-5.1); Sodium 142 mmol/L (135-145); Total Protein 8.5 g/dL (6.5-8.0)
[2023-06-10 18:42] LABS: Acetaminophen LAB < 17 mcg/mL (<30); Salicylate < 5.0 mg/dL (15-30)
[2023-06-10 20:31] VITALS: BP 125/95; PULSE 95; RESP 18; TEMP 36.8; O2SAT 99
[2023-06-10] MEDS: QUEtiapine Fumarate 400 MG TABLET PO (21:14)
[2023-06-11 04:30] LABS: Carbon Dioxide 30 mmol/L (22-29)
[2023-06-11 04:52] LABS: Anion Gap 13 (12-20)
--- NOTE | 2023-06-11 06:05 | PC.NURSE ---
Patient slept through the night, no distress observed/reported, behavior unpredictable with possibility of escalation, medication compliant, care consult ordered, pending evaluation, VSS, will continue to monitor.
[2023-06-11] MEDS: Levothyroxine Sodium 50 MCG TABLET PO (06:11)
[2023-06-11 06:23] VITALS: BP 112/68; PULSE 84; RESP 13; TEMP 36.6; O2SAT 94
[2023-06-11 09:12] VITALS: BP 103/64; PULSE 86
[2023-06-11] MEDS: amLODIPine Besylate 10 MG TABLET PO (09:12)
[2023-06-11] MEDS: QUEtiapine Fumarate 300 MG TABLET PO (09:12)
[2023-06-11] MEDS: clonazePAM 1 MG TABLET PO ×3 (09:12→21:19)
[2023-06-11] MEDS: Loratadine 10 MG TABLET PO (09:12)
--- NOTE | 2023-06-11 15:16 | ECG_ITS ---
Test Reason : CHECK QTC Blood Pressure : / mmHG Vent. Rate : 086 BPM Atrial Rate : 086 BPM P-R Int : 116 ms QRS Dur : 084 ms QT Int : 372 ms P-R-T Axes : 074 064 081 degrees QTc Int : 445 ms Normal sinus rhythm Normal ECG When compared with ECG of 10-DEC-2022 10:59, No significant change was found Referred By: Matthew Larson Electronically Signed By:Gautam Chambers
[2023-06-11 15:58] LABS: COVID-19 Test Negative (Negative); IDNOW Serial# 55D5AD1C
--- NOTE | 2023-06-11 17:17 | MHC.CARE ---
patient is an inpatient LOC bed search. SHe signed a CV. pending placement.
[2023-06-11 21:03] VITALS: BP 128/77; PULSE 89; RESP 18; TEMP 36.3; O2SAT 99
[2023-06-11] MEDS: QUEtiapine Fumarate 400 MG TABLET PO (21:18)
[2023-06-11 22:30] VITALS: BP 132/67; PULSE 75; TEMP 36.4; O2SAT 99
[2023-06-11] MEDS: Acetaminophen 325 MG TABLET 650 MG PO (22:36)
--- NOTE | 2023-06-12 00:21 | PC.ADMIT ---
pt is a 57 year old female who presented to [facility] with SI with a plan to harm herself. pt is [place] speaking mostly. pt reported she was hearing AH/VH in her apartment and wanted to hang herself. pt tox screen was positive for cocaine and benzos. pt was a past medical history of inpatient admissions, bipolar disorder, and PTSD. during admission, an rn oncology was called. pt refused to sign legals and said I just want to go to bed . pt reported she had a pain on the back of left buttocks that aguirre and feels hot . MD was notified and hospital consult was put in. pt was also given tylenol. start treatment plan and promote safety.
[2023-06-12] MEDS: Levothyroxine Sodium 50 MCG TABLET PO (06:09)
[2023-06-12] MEDS: Loratadine 10 MG TABLET PO (08:58)
[2023-06-12] MEDS: amLODIPine Besylate 10 MG TABLET PO (08:58)
[2023-06-12] MEDS: clonazePAM 1 MG TABLET PO ×3 (08:58→20:40)
[2023-06-12] MEDS: QUEtiapine Fumarate 300 MG TABLET PO (08:58)
[2023-06-12 09:05] VITALS: BP 105/73; PULSE 90; RESP 18; TEMP 36.2; O2SAT 98
[2023-06-12 09:32] LABS: Alanine Aminotransferase 22 U/L (0-31); Albumin Level 3.8 g/dL (3.5-5.0); Alkaline Phosphatase 69 U/L (39-117); Anion Gap 13 (12-20); Aspartate Amino Transferase 22 U/L (5-31); Bilirubin Total 0.3 mg/dL (0.0-1.0); Blood Urea Nitrogen 14 mg/dL (9-16); Calcium 9.4 mg/dL (8.4-10.2); Carbon Dioxide 23 mmol/L (22-29); Chloride 105 mmol/L (96-108); Cholesterol 194 mg/dL; Creatinine Clr Calc Pharmacy 87.7; Estimated Glomerular Filt Rate > 60; Glucose Fasting 125 mg/dL (60-99); HDL Cholesterol 46 mg/dL; LDL Cholesterol Calculated 122 mg/dl; Potassium 3.8 mmol/L (3.3-5.1); Sodium 137 mmol/L (135-145); Total Protein 7.9 g/dL (6.5-8.0); Triglycerides 134 mg/dL
[2023-06-12] MEDS: Acetaminophen 325 MG TABLET 650 MG PO (12:51)
--- NOTE | 2023-06-12 13:11 | PM.EVENT ---
Event Note Date of Service: 06/12/23 Event Note: Pt seen and examined. Complaining of pain and infection worsening right buttock x 4 days. No active drainage. NO fevers. No IVDA reported. On exam, 3cm area of erythema with central punctate scab without fluctuance or drainage. Very ttp. Recommend keflex 500mg qid x 7 days and doxycycline 100mg BID x 7 days. Take with food. Can use warm compresses and tylenol. Thank you for allowing me to participate in this consult. Signing off at this time. Please do not hesitate to call for further questions. Time Spent With Patient Time: Total time managing care of this patient today ____ minutes.
[2023-06-12] MEDS: Doxycycline Monohydrate 100 MG CAPSULE PO (13:44)
[2023-06-12] MEDS: cephALEXin 500 MG CAPSULE PO ×2 (13:44→18:14)
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
[2023-06-12 18:00] VITALS: BP 89/50; PULSE 87; RESP 16; TEMP 36.6; O2SAT 94
[2023-06-12] MEDS: QUEtiapine Fumarate 400 MG TABLET PO (20:40)
[2023-06-12] MEDS: hydrOXYzine HCL 25 MG TABLET PO (20:42)
[2023-06-13] MEDS: cephALEXin 500 MG CAPSULE PO ×3 (06:20→18:36)
[2023-06-13] MEDS: Levothyroxine Sodium 50 MCG TABLET PO (06:20)
[2023-06-13] MEDS: clonazePAM 1 MG TABLET PO ×2 (09:30→21:30)
[2023-06-13] MEDS: QUEtiapine Fumarate 300 MG TABLET PO (09:30)
[2023-06-13] MEDS: Doxycycline Monohydrate 100 MG CAPSULE PO ×2 (09:30→21:29)
[2023-06-13] MEDS: Acetaminophen 325 MG TABLET 650 MG PO (12:13)
[2023-06-13] MEDS: Ibuprofen 400 MG TABLET PO (12:48)
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
[2023-06-13] MEDS: QUEtiapine Fumarate 400 MG TABLET PO (21:29)
[2023-06-14] MEDS: cephALEXin 500 MG CAPSULE PO ×4 (01:15→17:23)
[2023-06-14] MEDS: Levothyroxine Sodium 50 MCG TABLET PO (06:15)
[2023-06-14] MEDS: QUEtiapine Fumarate 300 MG TABLET PO (09:08)
[2023-06-14] MEDS: Doxycycline Monohydrate 100 MG CAPSULE PO ×2 (09:08→21:32)
[2023-06-14] MEDS: Ibuprofen 400 MG TABLET PO ×2 (09:08→21:36)
[2023-06-14] MEDS: clonazePAM 1 MG TABLET PO ×3 (09:08→21:32)
[2023-06-14] MEDS: amLODIPine Besylate 10 MG TABLET PO (09:09)
[2023-06-14] MEDS: Loratadine 10 MG TABLET PO (09:09)
[2023-06-14 09:15] VITALS: BP 131/74; PULSE 110; RESP 18; TEMP 36.1; O2SAT 95
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
[2023-06-14 16:40] VITALS: BP 111/78; PULSE 102; TEMP 35.9
[2023-06-14] MEDS: QUEtiapine Fumarate 400 MG TABLET PO (21:32)
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
[2023-06-15] MEDS: Levothyroxine Sodium 50 MCG TABLET PO (06:52)
[2023-06-15] MEDS: cephALEXin 500 MG CAPSULE PO ×3 (06:52→20:48)
[2023-06-15 08:00] VITALS: BP 157/70; PULSE 63; RESP 16; TEMP 36.2; O2SAT 98
[2023-06-15] MEDS: QUEtiapine Fumarate 300 MG TABLET PO (09:07)
[2023-06-15] MEDS: amLODIPine Besylate 10 MG TABLET PO (09:08)
[2023-06-15] MEDS: Loratadine 10 MG TABLET PO (09:08)
[2023-06-15] MEDS: clonazePAM 1 MG TABLET PO ×3 (09:08→20:48)
[2023-06-15] MEDS: Doxycycline Monohydrate 100 MG CAPSULE PO ×2 (09:08→20:47)
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
[2023-06-15] MEDS: Ibuprofen 400 MG TABLET PO (15:42)
[2023-06-15] MEDS: hydrOXYzine HCL 25 MG TABLET PO (15:42)
[2023-06-15 18:00] VITALS: BP 129/60; PULSE 73; TEMP 36.1; O2SAT 98
[2023-06-15] MEDS: Lithium Carbonate 300 MG TABLET PO (20:47)
[2023-06-15] MEDS: QUEtiapine Fumarate 400 MG TABLET PO (20:48)
[2023-06-16 06:00] VITALS: RESP 18
[2023-06-16] MEDS: Levothyroxine Sodium 50 MCG TABLET PO (07:00)
[2023-06-16] MEDS: cephALEXin 500 MG CAPSULE PO ×2 (07:00→11:50)
[2023-06-16] MEDS: hydrOXYzine HCL 25 MG TABLET PO (08:41)
[2023-06-16] MEDS: Loratadine 10 MG TABLET PO (08:41)
[2023-06-16] MEDS: QUEtiapine Fumarate 100 MG TABLET PO (08:41)
[2023-06-16] MEDS: Doxycycline Monohydrate 100 MG CAPSULE PO (08:41)
[2023-06-16] MEDS: chlorproMAZINE HCl 25 MG TABLET 50 MG PO (08:41)
[2023-06-16] MEDS: Ibuprofen 400 MG TABLET PO (08:42)
[2023-06-16] MEDS: QUEtiapine Fumarate 300 MG TABLET PO (08:42)
[2023-06-16 09:46] LABS: Thyroid Stimulating Hormone 4.64 uIU/mL (0.32-4.0)
[2023-06-16 09:59] LABS: Folate 8.4 ng/mL (> or = 4.0); Vitamin B12 513 pg/mL (200-900)
--- NOTE | 2023-06-16 11:02 | P.DS_ITS ---
DS: Providers Provider Date of Service: 06/16/23 Date of admission: 06/11/23 21:35 Date of discharge: 06/16/23 Primary care physician: Unknown Physician [facility] Admitting clinician: Mariah Dhaliwal Attending physician on admission: Ruddy Beasley Consults: 06/11/23 10:58 Consult to Hospitalist Routine Comment: Consulting Provider: Hospitalist Reason For Exam: Infection on the buttocks Attending physician on discharge: Ruddy Beasley Discharging clinician: Mariah Dhaliwal DS: Diagnosis Discharge Diagnosis (1) PTSD (post-traumatic stress disorder): Status: Acute (2) Bipolar disorder: Status: Acute (3) Borderline personality disorder: Status: Acute DS: Medications Discharge Medications Home Medications: Home Medications Medication Instructions Recorded Confirmed amlodipine 10 mg tablet 10 mg PO QAM 06/10/23 06/10/23 cetirizine 10 mg tablet 10 mg PO QAM 06/10/23 06/10/23 clonazepam 1 mg tablet 1 mg PO TID 06/10/23 06/10/23 levothyroxine 50 mcg tablet 50 mcg PO QAM 06/10/23 06/10/23 Previous Rx's Medication Instructions Recorded cephalexin 500 mg capsule 500 mg PO Q6H #15 caps 06/16/23 doxycycline monohydrate 100 mg 100 mg PO Q12H #6 caps 06/16/23 capsule lithium carbonate 300 mg tablet 300 mg PO BEDTIME #7 tabs 06/16/23 quetiapine 300 mg tablet 300 mg PO DAILY 30 days #7 tabs 06/16/23 quetiapine 400 mg tablet (Seroquel) 400 mg PO BEDTIME 30 days #7 tabs 06/16/23 Mental Status Exam Mental Status Exam Patient Appearance: Appropriate Patient Orientation: Person, Place, Time and Situation Level of Consciousness: Alert Patient Behavior: Appropriate, Talkative, Cooperative and Good Eye Contact Mood Description: Appropriate Affect Description: Appropriate Patient Cognition Impaired: No Ability to Follow Directions: Good Speech Pattern: Spontaneous Speech and Loud (at times) Memory Description: Intact Hallucinations: None Delusions: Not Present Thought Process: Rumination Judgement: Good Data Data Completed and Pending Completed studies during hospitalization [Text1]: 06/10/23 06/10/23 06/10/23 17:09 17:09 18:07 WBC 6.3 RBC 4.20 Hgb 12.9 Hct 39.4 MCV 93.8 MCH 30.7 MCHC 32.7 RDW 13.5 Plt Count 256 D MPV 9.6 Immature Gran % (Auto) 0.5 H Neut % (Auto) 56.5 Lymph % (Auto) 34.0 Mineral % (Auto) 7.6 Eos % (Auto) 1.1 Baso % (Auto) 0.3 Lymph # (Auto) 2.2 Mineral # (Auto) 0.5 Eos # (Auto) 0.1 Baso # (Auto) 0.0 Abs Immat Gran (auto) 0.03 Absolute Neuts (auto) 3.6 Absolute Nucleated RBC 0.000 Nucleated RBC % (auto) 0.0 Sodium Potassium Chloride Carbon Dioxide Anion Gap BUN Creatinine Estim Creat Clear Calc Estimated GFR Random Glucose Fasting Glucose Calcium Magnesium Total Bilirubin AST ALT Alkaline Phosphatase Total Protein Albumin Triglycerides Cholesterol LDL Cholesterol, Calc HDL Cholesterol Vitamin B12 Folate TSH Urine Color Yellow Urine Appearance Clear Urine pH 6.5 Ur Specific [place] 1.010 Urine Protein Trace Urine Glucose (UA) Negative Urine Ketones Negative Urine Blood Negative Urine Nitrite Negative Ur Leukocyte Esterase Small (1+) H Urine RBC 0-2 Urine WBC 11-20 H Ur Squamous Epith Cells 3-5 Urine Bacteria None Seen Hyaline Casts 0-2 Salicylates Urine Opiates Screen Not Detected Urine Fentanyl Screen Not Detected Acetaminophen Ur Barbiturates Screen Not Detected Ur Phencyclidine Scrn Not Detected Ur Amphetamines Screen Not Detected U Benzodiazepines Scrn POSITIVE H Urine Cocaine Screen POSITIVE H U Marijuana (THC) Screen Not Detected Ethyl Alcohol COVID-19 ([facility]) COVID-19 Clin [facility] 06/10/23 06/10/23 06/11/23 18:07 18:07 15:37 WBC RBC Hgb Hct MCV MCH MCHC RDW Plt Count MPV Immature Gran % (Auto) Neut % (Auto) Lymph % (Auto) Mineral % (Auto) Eos % (Auto) Baso % (Auto) Lymph # (Auto) Mineral # (Auto) Eos # (Auto) Baso # (Auto) Abs Immat Gran (auto) Absolute Neuts (auto) Absolute Nucleated RBC Nucleated RBC % (auto) Sodium 142 Potassium 3.8 Chloride 103 Carbon Dioxide 30 H Anion Gap 13 BUN 8 L Creatinine 0.64 Estim Creat Clear Calc 90.4 Estimated GFR > 60 Random Glucose 103 Fasting Glucose Calcium 10.0 D Magnesium 1.8 Total Bilirubin 0.5 AST 22 ALT 16 Alkaline Phosphatase 76 Total Protein 8.5 H Albumin 4.2 Triglycerides Cholesterol LDL Cholesterol, Calc HDL Cholesterol Vitamin B12 Folate TSH Urine Color Urine Appearance Urine pH Ur Specific [place] Urine Protein Urine Glucose (UA) Urine Ketones Urine Blood Urine Nitrite Ur Leukocyte Esterase Urine RBC Urine WBC Ur Squamous Epith Cells Urine Bacteria Hyaline Casts Salicylates < 5.0 L Urine Opiates Screen Urine Fentanyl Screen Acetaminophen < 17 Ur Barbiturates Screen Ur Phencyclidine Scrn Ur Amphetamines Screen U Benzodiazepines Scrn Urine Cocaine Screen U Marijuana (THC) Screen Ethyl Alcohol < 10 COVID-19 ([place]) Negative COVID-19 Clin Com See Note 06/12/23 06/16/23 06/16/23 08:21 08:52 08:52 WBC RBC Hgb Hct MCV MCH MCHC RDW Plt Count MPV Immature Gran % (Auto) Neut % (Auto) Lymph % (Auto) Mineral % (Auto) Eos % (Auto) Baso % (Auto) Lymph # (Auto) Mineral # (Auto) Eos # (Auto) Baso # (Auto) Abs Immat Gran (auto) Absolute Neuts (auto) Absolute Nucleated RBC Nucleated RBC % (auto) Sodium 137 Potassium 3.8 Chloride 105 Carbon Dioxide 23 Anion Gap 13 BUN 14 Creatinine 0.66 Estim Creat Clear Calc 87.7 Estimated GFR > 60 Random Glucose Fasting Glucose 125 H Calcium 9.4 Magnesium Total Bilirubin 0.3 AST 22 ALT 22 Alkaline Phosphatase 69 Total Protein 7.9 Albumin 3.8 Triglycerides 134 Cholesterol 194 LDL Cholesterol, Calc 122 HDL Cholesterol 46 Vitamin B12 513 Folate 8.4 TSH 4.64 H Urine Color Urine Appearance Urine pH Ur Specific [place] Urine Protein Urine Glucose (UA) Urine Ketones Urine Blood Urine Nitrite Ur Leukocyte Esterase Urine RBC Urine WBC Ur Squamous Epith Cells Urine Bacteria Hyaline Casts Salicylates Urine Opiates Screen Urine Fentanyl Screen Acetaminophen Ur Barbiturates Screen Ur Phencyclidine Scrn Ur Amphetamines Screen U Benzodiazepines Scrn Urine Cocaine Screen U Marijuana (THC) Screen Ethyl Alcohol COVID-19 ([facility]MAIN) COVID-19 Clin Com 06/10/23 Unknown Urine clean catch - Urine regalado top Urine Culture - Final Imaging Diagnostic Imaging Impressions Hip X-Ray 06/13/23 12:42 IMPRESSION: Mild degenerative changes of the right hip. Multiple soft tissue foreign bodies projecting over the right lower quadrant/buttock similar to lumbar spine x-ray September 2020. Lumbar Spine X-Ray 06/13/23 12:42 IMPRESSION: Mild degenerative changes. Soft tissue foreign bodies similar to September 2020 exam. DS: Summary Hospital Course Hospital Course: 57 yo female, history of PTSD, Bipolar Disorder, Borderline Personality Disorder admitted for exacerbation of symptoms with SI. Probable precipitant is the of her mother in March 2023. Pt accepted scheduled medications on the unit, however was reluctant initially to accept changes. She did agree to begin a low dose of [place] prior to discharge. Behaviors on the unit were verbally threatening at times to peers, with lability, loud verbalizations, however, pt exercised control when needed to, was able to calm and presented clearly when needed. Mood and behaviors were within her control. Pt was noted to have a 3 cm area of infection on her buttock. The hospitalist team evaluated her and Doxycycline/Keflex were initiated. She will complete these prescriptions at home upon discharge. Due to pt's threats to peers on the unit, she was discharged to her home. At the time of discharge she reported she was not suicidal or homicidal. She agreed to out patient follow up care and to continue her medications. She did comment that she felt lonely at home. Time spent discussing smoking cessation with patient: 3 to 10 minutes Status at Discharge Functional status at discharge: independent ambulation Overall status at discharge: patient is back to baseline Time Spent with Patient Time attestation: Total time managing care of this patient today ____ minutes. Time spent: Greater than 30 minutes Discharge Plan Discharge Anticipated Discharge Date/Time: 06/16/23 12:00 Patient Disposition: Home, Self-Care Discharge Diagnosis: PTSD Bioplar Disorder Borderline Personality Disorder Referrals: [facility] (Psychiatry) [Other] - 1 Week (Referred to [facility] for psychiatric medication management. Patient discharged prior to receiving appointments. [facility] will follow-up with patient after discharge to provide psychiatric evaluation appointment.) [facility] Being Watched (therapist) [Other] - 1 Week (Patient referred for therapy services through [facility] will follow-up with patient after discharge to provide initial diagnostic evaluation appointment information. Patient will need to attend appointment in person.) Breanna Worrell MD: (PCP) [Other] - 06/30/23 (PCP appointment ) Physician,Unknown J [Primary Care Provider] - 1 Week Discharge Medications: New doxycycline monohydrate 100 mg Capsule 100 mg PO Q12H Qty: 6 0RF cephalexin 500 mg Capsule 500 mg PO Q6H Qty: 15 0RF lithium carbonate 300 mg Tablet 300 mg PO BEDTIME Qty: 7 4RF Continued cetirizine 10 mg tablet 10 mg PO QAM amlodipine 10 mg tablet 10 mg PO QAM levothyroxine 50 mcg tablet 50 mcg PO QAM clonazepam 1 mg tablet 1 mg PO TID quetiapine 300 mg Tablet 300 mg PO DAILY 30 Days Qty: 7 4RF quetiapine [Seroquel] 400 mg Tablet 400 mg PO BEDTIME 30 Days Qty: 7 4RF Discharge Orders: Discharge Order (Routine); Ordered 06/16/23 Ordered By: Mariah Dhaliwal Diet: Advance to usual diet Activity on Discharge: As tolerated Stand Alone Forms: Patient Portal Discharge page, Community Support Care Plan Goals: Mood and Behavior Stabilization Health Concerns: Mood and Behavior Stabilization Plan of Treatment: Take medications as directed [facility] [place] Social Work Team will contact you regarding your scheduling for follow up appointments for out patient care Follow up with primary care team Assessment: Pt is discharged today administratively as she has been threatening to other patients on the unit. Met with pt and [facility] [place] Road Builder. Pt interviewed prior to discharge and found to be fully oriented and without SI/HI. Pt reports she will pursue out patient treatment and will continue her medication regime. Pt reports feeling lonely at home. She is aware that she may present to the nearest ER, call 911 or crisis if needed should she feel unsafe. She reports she is not in imminent risk of harm to self or others. She has not engaged in any behaviors that suggest dangerousness to self and no physical actions that would place others at risk, just verbal threats to peers which she verbalizes understanding that this is not appropriate behavior. Discharge Date/Time: 06/16/23 13:41
== END 2023-06-16 13:41 | disposition home or self-care (01) | DRG 753 ==
LOC: HO.ED 16:56 → HO.PM5 06-11 21:52
PROVIDERS: Physician Assistant; Admitting Provider Psychiatry & Neurology Psychiatry; Emergency Provider Emergency Medicine; Visit Provider Clinical Nurse Specialist Psychiatric/Mental Health, Adult
DX: F31.9 Bipolar disorder, unspecified (principal); R45.851 Suicidal ideations; E03.9 Hypothyroidism, unspecified; F60.3 Borderline personality disorder; M79.5 Residual foreign body in soft tissue; F43.12 Post-traumatic stress disorder, chronic; Z20.822 Contact with and (suspected) exposure to COVID-19; Z86.19 Personal history of other infectious and parasitic diseases; Z79.899 Other long term (current) drug therapy
CPT/HCPCS: 36415; 72100; 73502; 80053; 80061; 80143; 80179; 80307; 81001; 82607; 82746; 83735; 84443; 85025; 87086; 87635; 93005; 99285; S9485

== ENCOUNTER → 2023-06-11 15:16 | Outpatient (BNV) | payer MEDICAID, SELFPAY | PROVIDERS: Admitting Provider Psychiatry & Neurology Psychiatry; Emergency Provider Emergency Medicine; Visit Provider Internal Medicine Cardiovascular Disease | DX: Z51.81 Encounter for therapeutic drug level monitoring (principal) | CPT/HCPCS: 93010 ==

== ENCOUNTER → 2023-06-11 21:35 | Outpatient (BNV) | payer OTHER, SELFPAY | PROVIDERS: Admitting Provider Psychiatry & Neurology Psychiatry; Emergency Provider Emergency Medicine; Visit Provider Psychiatry & Neurology Psychiatry | DX: F43.11 Post-traumatic stress disorder, acute (principal); F31.5 Bipolar disorder, current episode depressed, severe, with psychotic features | CPT/HCPCS: 99231; 99232; 99233 ==

== ENCOUNTER 2023-08-10 18:09 | Inpatient (IN) | payer MEDICAID, OTHER, SELFPAY ==
[2023-08-10 18:19] VITALS: BP 140/99; BP 154/80; PULSE 83; PULSE 90; RESP 14; TEMP 37; O2SAT 97; O2SAT 98; BMI 28.0
--- NOTE | 2023-08-10 18:28 | PC.NURSE ---
ILSA from the community. A & Ox3. + SI, plan to cut self with knife, denies intent. + HI towards police who went to her house. Endorses AH/VH, denies to elaborate. Engaged in self harming prior to arrival by hitting self in head with phone. Visible lump/scab on L side of head. Awaiting security to irrigation equipment remover. Tech at bedside with pt.
--- NOTE | 2023-08-10 19:23 | ED.PSYCH ---
HPI - Psych General Chief Complaint: Psychiatric Symptoms Stated Complaint: pradeep si Time Seen by Provider: 08/10/23 19:05 Source: patient and EMS Mode of arrival: EMS Limitations: no limitations History of Present Illness HPI Narrative: Patient comes to the emergency room via ambulance from home. According to EMS, the patient's neighbor called the ambulance because the patient mentioned that she had plans to cut herself with a knife. However, patient denies SI or HI. Earlier today, patient hit herself and the left side of the head with her own cellphone. Related Data Home Medications Medication Instructions Recorded Confirmed amlodipine 10 mg tablet 10 mg PO QAM 06/10/23 08/10/23 cetirizine 10 mg tablet 10 mg PO QAM 06/10/23 06/10/23 clonazepam 1 mg tablet 1 mg PO TID 06/10/23 06/10/23 levothyroxine 50 mcg tablet 50 mcg PO QAM 06/10/23 06/10/23 Previous Rx's Medication Instructions Recorded doxycycline monohydrate 100 mg 100 mg PO Q12H #6 caps 06/16/23 capsule lithium carbonate 300 mg tablet 300 mg PO BEDTIME #7 tabs 06/16/23 quetiapine 300 mg tablet 300 mg PO DAILY 30 days #7 tabs 06/16/23 quetiapine 400 mg tablet (Seroquel) 400 mg PO BEDTIME 30 days #7 tabs 06/16/23 Allergies Allergy/AdvReac Type Severity Reaction Status Date / Time haloperidol [From HALDOL] Allergy Intermediate LOWERS Verified 06/10/23 12:47 HEART RATE trazodone AdvReac Intermediate Hives Verified 06/10/23 12:47 Review of Systems Review of Systems: Constitutional : No Weight loss, No Fever, No Chills, No Night Sweats, No Fatigue, No Malaise ENT/Mouth : No Hearing loss, No Ear Pain, No Nasal Congestion, No Sinus Pain, No Hoarseness, No sore throat, No Rhinorrhea, No Swallowing Difficulty Eyes: No Eye Pain, No Swelling, No Redness, No Foreign Body, No Discharge, No Vision Changes Cardiovascular : No Chest Pain, No SOB, No Dyspnea on Exertion, No Orthopnea, No Edema, No Palpitations Respiratory : No Cough, No Sputum, No Wheezing, No Smoke Exposure, No Dyspnea Gastrointestinal : No Nausea, No Vomiting, No Diarrhea, No Constipation, No abdominal Pain, No Hematochezia, No Melena Genitourinary : no irregular bleeding, No Dysuria, No Urinary Frequency, No Hematuria, No Urinary Incontinence, No Urgency, No Flank Pain, No Urinary Flow Changes, No Hesitancy Musculoskeletal : No joint pain, No Myalgias, No Joint Swelling Skin : No Skin Lesions, No rash Neuro : No Weakness, No Numbness, No Paresthesias, No Loss of Consciousness, No Dizziness, No Headache Psych : Lining of anxiety, depression, of SI, no HI, although early today she told her nurse that she was positive HI towards the police commissioner who went to her house Heme/Lymph: No Bruising, No Bleeding,No Lymphadenopathy Endocrine : No Polyuria, No Polydipsia, No Temperature Intolerance [facility] Past Medical History Medical History (Updated 08/10/23 @ 19:29 by Jolene Escobedo MD) Borderline personality disorder Depression Chronic post-traumatic stress disorder (PTSD) Hypothyroidism Bipolar 1 disorder Social History Social History Household Members: None Housing: Apartment Do you presently have visiting nurse or other home services: No Unable to assess alcohol history related to: Unknown Alcohol intake: unknown Patient Tobacco Use Status: Never used Tobacco Second Hand Smoke Exposure: No Substance Use Type: Crack/Cocaine and Sedatives Advance Directives: No Advance Directives Information Provided: Yes service: No Sexual orientation: Decline to Answer Physical Exam Vital Signs: Vital Signs: Last Vital Signs Temp 98.6 F 08/10/23 18:19 Pulse 83 08/10/23 18:19 Resp 14 08/10/23 18:19 BP 140/99 H 08/10/23 18:19 Pulse Ox 98 08/10/23 18:19 O2 Del Method Room Air 08/10/23 18:19 BMI result Body Mass Index 28.0 Const: Other: Appearance: Alert. Oriented X3. No acute distress. Eyes: Pupils equal, round and reactive to light. ENT: Pharynx normal. Neck: Normal inspection. Neck supple. No lymph nodes noted. No crepitus CVS: Normal heart rate and rhythm. Pulses normal. Normal S1 and S2 Respiratory: No respiratory distress. Breath sounds normal. No Wheezing. No rales Abdomen: Soft and nontender. No rigidity. No distention. Skin: Skin warm and dry. Normal skin color. Normal skin turgor. Extremities: No lower extremity edema. No Lacerations. No Rash Neuro: Oriented X 3. No motor deficit. No sensory deficit. Moving all extremities. No slurred speech. CN 2 through 12 grossly intact Psych: calm, cooperative Course Course Course Narrative: -all of patient's labs are pending -care team consult -physician observation started at 19:25 Medical Decision Making Differential Diagnosis Differential Diagnoses: The differential diagnosis associated with the presentation includes (Anxiety, depression, suicidal ideation, bipolar disorder) Admission/Observation Consideration of admission/observation: Escalation of care including admission/observation considered (Patient will remain in observation in the emergency room until medically cleared and seen by behavioral health) Discharge Plan Discharge Clinical Impression: Bipolar disorder, Suicidal ideation Patient Disposition: Still a Patient Prescriptions: No Action cetirizine 10 mg tablet 10 mg PO QAM amlodipine 10 mg tablet 10 mg PO QAM levothyroxine 50 mcg tablet 50 mcg PO QAM clonazepam 1 mg tablet 1 mg PO TID doxycycline monohydrate 100 mg Capsule 100 mg PO Q12H Qty: 6 0RF cephalexin 500 mg Capsule 500 mg PO Q6H Qty: 15 0RF lithium carbonate 300 mg Tablet 300 mg PO BEDTIME Qty: 7 4RF quetiapine 300 mg Tablet 300 mg PO DAILY 30 Days Qty: 7 4RF quetiapine [Seroquel] 400 mg Tablet 400 mg PO BEDTIME 30 Days Qty: 7 4RF
[2023-08-10 19:57] LABS: MANUAL DIFF FLAG NO
[2023-08-10 20:00] LABS: Basophils Percent Auto 0.3 % (0-2); Eosinophils Absolute Auto 0.1 X10*3/uL (0.0-0.4); Eosinophils Percent Auto 0.9 % (0-4); Hematocrit 37.6 % (37.0-47.0); Hemoglobin 12.2 g/dl (12.0-16.0); Imm Gran Abs Auto 0.01 X10*3/uL (0.00-0.03); Imm Gran Pct Auto 0.2 % (0.0-0.4); Lymphocytes Absolute Auto 2.8 X10*3/uL (1.2-4.9); Lymphocytes Percent Auto 41.7 % (20-40); Mean Corpuscular HGB Conc 32.4 g/dl (31.0-35.0); Mean Corpuscular Hemoglobin 31.1 pg (27.0-33.0); Mean Corpuscular Volume 95.9 fL (80.0-98.0); Mean Platelet Volume 9.7 fL (9.4-12.3); Monocytes Absolute Auto 0.6 X10*3/uL (0.1-1.2); Monocytes Percent Auto 8.7 % (2-11); Neutrophils Absolute Auto 3.2 x10*3/uL (2.0-8.3); Neutrophils Percent Auto 48.2 % (45-73); Platelet Count 228 X10*3/uL (160-400); Red Blood Count 3.92 X10*6/uL (4.20-5.50); Red Cell Distribution Width 13.2 % (11.0-16.0); White Blood Count 6.6 X10*3/uL (4.8-10.8)
[2023-08-10 20:16] LABS: Lithium < 0.10 mmol/L (0.60-1.20)
[2023-08-10 20:21] LABS: COVID-19 Test Negative (Negative); IDNOW Serial# 6674DD1D
[2023-08-10 20:24] LABS: Alanine Aminotransferase 18 U/L (0-31); Alkaline Phosphatase 70 U/L (39-117); Anion Gap 13 (12-20); Aspartate Amino Transferase 29 U/L (5-31); Bilirubin Direct 0.1 mg/dL (0.0-0.5); Bilirubin Total 0.3 mg/dL (0.0-1.0); Blood Urea Nitrogen 5 mg/dL (9-16); Calcium 9.3 mg/dL (8.4-10.2); Carbon Dioxide 27 mmol/L (22-29); Chloride 103 mmol/L (96-108); Creatinine Clr Calc Pharmacy 97.2; Estimated Glomerular Filt Rate > 60; Ethanol < 10 mg/dL; Glucose Random 99 mg/dL (60-115); Potassium 3.9 mmol/L (3.3-5.1); Sodium 139 mmol/L (135-145)
[2023-08-10 20:31] LABS: Appearance Urine Clear; Color Urine Yellow; Glucose Urine UA Negative (Negative); Leukocyte Esterase Urine Trace (Negative); Nitrite Urine Negative (Negative); UMIC TRIGGER UACC YES; Urine Blood Negative (Negative); Urine Ketones Negative (Negative); Urine Protein Negative (Neg-Trace)
[2023-08-10 20:32] LABS: Amphetamine Screen Urine Not Detected (Not Detect); Barbiturates, Urine Not Detected (Not Detect); Benzodiazepines Screen Urine Not Detected (Not Detect); Cannabinoid Screen Urine Not Detected (Not Detect); Cocaine Screen Urine POSITIVE (Not Detect); Fentanyl, urine Not Detected (Not Detect); Opiate Screen Urine Not Detected (Not Detect); Phencyclidine Screen Urine Not Detected (Not Detect)
[2023-08-10 20:37] LABS: Bacteria Urine None Seen (None Seen); Hyaline Casts Urine 0-2 /LPF (0-2); RBC Urine 0-2 /HPF (0-2); WBC Urine 0-5 /HPF (0-5)
[2023-08-10 21:28] VITALS: BP 146/93; PULSE 90; RESP 16; TEMP 36.4; O2SAT 99
[2023-08-10] MEDS: clonazePAM 1 MG TABLET PO (21:32)
[2023-08-10] MEDS: QUEtiapine Fumarate 400 MG TABLET 800 MG PO (21:32)
[2023-08-10] MEDS: Acetaminophen 325 MG TABLET 650 MG PO (21:32)
--- NOTE | 2023-08-11 | ECG_ITS ---
Test Reason : ASSESS QT INTERVALS Blood Pressure : / mmHG Vent. Rate : 075 BPM Atrial Rate : 075 BPM P-R Int : 126 ms QRS Dur : 086 ms QT Int : 416 ms P-R-T Axes : 064 051 079 degrees QTc Int : 464 ms Normal sinus rhythm Normal ECG When compared with ECG of 11-JUN-2023 16:53, No significant change was found Referred By: Leroy Andrews Electronically Signed By:ROD GORMAN
--- NOTE | 2023-08-11 05:54 | PC.NURSE ---
Patient slept through the night, no distress observed/reported, behavior non concerning at this time but unpredictable, Kiswahili speaking primarily, , disposition per [facility] is section 12 inpatient bed search, labs completed/resulted, medication compliant, VSS, will continue to monitor.
[2023-08-11 06:48] VITALS: BP 115/62; PULSE 67; RESP 16; TEMP 36.6; O2SAT 96
--- NOTE | 2023-08-11 07:23 | PC.NURSE ---
patient appears to remain asleep at present respirations are even and unlabored patient appears in no distress
[2023-08-11] MEDS: Levothyroxine Sodium 50 MCG TABLET PO (10:11)
[2023-08-11] MEDS: clonazePAM 1 MG TABLET PO ×3 (10:12→22:08)
[2023-08-11] MEDS: QUEtiapine Fumarate 400 MG TABLET PO (10:12)
[2023-08-11] MEDS: Acetaminophen 325 MG TABLET 650 MG PO ×2 (10:12→18:27)
[2023-08-11] MEDS: amLODIPine Besylate 10 MG TABLET PO (10:12)
[2023-08-11] MEDS: Loratadine 10 MG TABLET PO (10:13)
[2023-08-11 13:51] VITALS: BP 96/55; PULSE 79; RESP 14; TEMP 36.5; O2SAT 98
[2023-08-11 14:25] VITALS: BP 118/72; PULSE 78; RESP 18; TEMP 36.7; O2SAT 96
--- NOTE | 2023-08-11 18:57 | PC.NURSE ---
Paulo was admitted to M[facility] at 1425 from [facility] on CV for treatment of psychosis with suicidal ideation. She refused to participate in admission assessment. She refused to interact with this nurse and production checker. All admission work was completed from crisis evaluation information. Patient presented to the pod with paranoid delusions, command auditory hallucinations and self harming behaviors including hitting herself in the head with her cell phone and superficially cutting her wrists. In addition she threatened to stab herself with a knife. Tox screen was positive for cocaine. She has a reported history of alcohol abuse but denied drinking recently. Possible trigger was patient's mother recently and patient recently moved here from [place] and her services and benefits lapsed. On admission she does not appear internally preoccupied. She is not responding to internal stimuli. She has not voiced any paranoid delusional thought content. I am unable to assess her current ideation, plan or intent to harm self or others She did report recent 13 lb weight loss.Medical issues?include hypertension and hypothyroidism. She is placed on high risk for falls due to unknown falls prior to admission since she refused to answer fall assessment./ She reports pain in the left side of her head when she self inflicted and lump and laceration by hitting herself with a cell phone. She took Tylenol with effect pending. Patient is placed on q 15 min Safety Checks
[2023-08-11] MEDS: QUEtiapine Fumarate 400 MG TABLET 800 MG PO (22:07)
[2023-08-11] MEDS: diphenhydrAMINE HCL 25 MG CAPSULE PO (22:08)
[2023-08-11 22:09] VITALS: BP 108/62; PULSE 74; RESP 16; TEMP 36.8; O2SAT 99
[2023-08-12] MEDS: Levothyroxine Sodium 50 MCG TABLET PO (06:28)
[2023-08-12 08:52] VITALS: BP 119/86; PULSE 98; RESP 18; TEMP 36.2; O2SAT 99
[2023-08-12] MEDS: Acetaminophen 325 MG TABLET 650 MG PO ×2 (09:43→21:12)
[2023-08-12] MEDS: clonazePAM 1 MG TABLET PO ×3 (09:43→21:12)
[2023-08-12] MEDS: Fluticasone Propionate Nasal 16 GM SPRAY 2 SPRAY NOSTRIL-B (09:43)
[2023-08-12] MEDS: amLODIPine Besylate 10 MG TABLET PO (09:43)
[2023-08-12] MEDS: Loratadine 10 MG TABLET PO (09:43)
[2023-08-12] MEDS: QUEtiapine Fumarate 400 MG TABLET PO (09:43)
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
--- NOTE | 2023-08-12 12:21 | MHC.CLN ---
NUTRITION CONSULT FOR 15# WEIGHT LOSS, NO FOOD IN HOME. WEIGHT HX REVIEWED. 08/10/23=71.7 KG; 06/10/23=72.575 KG; 12/10/22=69.4 KG; 05/16/21=80 KG. WEIGHT HX SHOWS WEIGHT ESSENTIALLY STABLE X [address] AVAILABLE BY CONSULT IF INTAKE APPEARS INADEQUATE. PLEASE REFER TO SOCIAL WORK FOR COMMUNITY ASSISTANCE WITH FOOD SECURITY.
[2023-08-12 14:02] LABS: Estimated Average Glucose 100 mg/dL; Hemoglobin A1c % 5.1 % (<6.0)
[2023-08-12 14:39] LABS: Vitamin B12 530 pg/mL (200-900)
[2023-08-12 14:44] LABS: Alanine Aminotransferase 20 U/L (0-31); Albumin Level 4.2 g/dL (3.5-5.0); Alkaline Phosphatase 78 U/L (39-117); Anion Gap 15 (12-20); Aspartate Amino Transferase 29 U/L (5-31); Bilirubin Total 0.3 mg/dL (0.0-1.0); Blood Urea Nitrogen 11 mg/dL (9-16); Calcium 10.4 mg/dL (8.4-10.2); Carbon Dioxide 27 mmol/L (22-29); Chloride 103 mmol/L (96-108); Cholesterol 218 mg/dL (<200); Creatinine Clr Calc Pharmacy 87.4; Estimated Glomerular Filt Rate > 60; Free T4 (Free Thyroxine) 0.76 ng/dL (0.71-1.85); Glucose Fasting 80 mg/dL (60-99); HDL Cholesterol 52 mg/dL (>40); LDL Cholesterol Calculated 143 mg/dL (<100); Sodium 140 mmol/L (135-145); Thyroid Stimulating Hormone 2.79 uIU/mL (0.32-4.0); Total Protein 8.7 g/dL (6.5-8.0); Triglycerides 116 mg/dL (<150)
[2023-08-12 18:00] VITALS: BP 115/72; PULSE 88; RESP 18; TEMP 36.2; O2SAT 98
[2023-08-12] MEDS: diphenhydrAMINE HCL 25 MG CAPSULE PO (21:13)
[2023-08-12] MEDS: QUEtiapine Fumarate 400 MG TABLET 800 MG PO (21:13)
[2023-08-13] MEDS: Levothyroxine Sodium 50 MCG TABLET PO (06:57)
[2023-08-13] MEDS: QUEtiapine Fumarate 400 MG TABLET PO (08:35)
[2023-08-13] MEDS: amLODIPine Besylate 10 MG TABLET PO (08:35)
[2023-08-13] MEDS: Loratadine 10 MG TABLET PO (08:35)
[2023-08-13] MEDS: clonazePAM 1 MG TABLET PO ×3 (08:35→20:37)
[2023-08-13 08:36] VITALS: BP 109/74; PULSE 92; RESP 18; TEMP 36.2; O2SAT 100
[2023-08-13] MEDS: Acetaminophen 325 MG TABLET 650 MG PO (10:10)
[2023-08-13 11:53] VITALS: BMI 25.2
--- NOTE | 2023-08-13 13:35 | P.PNPSI_ITS ---
Subjective Subjective Date of Service: 08/13/23 Reason For Visit: psychosis Subjective Notes: Conditional Voluntary Interim History: pt has been withdrawn depressed irritable reactive Medication Compliance: Yes Mental Status Exam Mental Status Exam Patient Appearance: Disheveled Patient Orientation: Person, Place and Situation Level of Consciousness: Alert Patient Behavior: Talkative, Restless, Distractible and Uncooperative Mood Description: Anxious, Labile, Angry and Apprehensive Affect Description: Depressed, Anxious, Labile and Apprehensive Patient Cognition Impaired: No Ability to Follow Directions: Fair Speech Pattern: Spontaneous Speech, Rapid, Animated and Loud (at times) Memory Description: Working Impaired Hallucinations: Auditory (Father's voice) Delusions: Not Present Thought Process: Rumination Thought Content: positive for Perseveration and positive for Preoccupation Depressive Symptoms: Increased Anxiety and Increased Irritability Judgement: Fair Judgement and Insight: impaired impulse control Diagnostics Vital Signs (24Hr): Vital Signs - 24 hr 08/12/23 18:00 08/13/23 08:36 Temperature 97.1 F 97.2 F Pulse Rate 88 92 Respiratory Rate 18 18 Blood Pressure 115/72 109/74 Pulse Oximetry 98 100 Oxygen Delivery Method Room Air Room Air BMI result Body Mass Index 25.2 Labs 08/10/23 19:44 08/12/23 13:37 Labs: Laboratory Results - last 48 hr 08/12/23 13:37 Sodium 140 Potassium 5.0 D Chloride 103 Carbon Dioxide 27 Anion Gap 15 BUN 11 Creatinine 0.69 Estim Creat Clear Calc 87.4 Estimated GFR > 60 Fasting Glucose 80 Estimat Average Glucose 100 Hemoglobin A1c % 5.1 Calcium 10.4 H D Total Bilirubin 0.3 AST 29 ALT 20 Alkaline Phosphatase 78 Total Protein 8.7 H Albumin 4.2 Triglycerides 116 Cholesterol 218 H LDL Cholesterol, Calc 143 H HDL Cholesterol 52 Vitamin B12 530 TSH 2.79 Free T4 0.76 Medications Medications Current Medications Acetaminophen (Acetaminophen 325 Mg Tablet) 650 mg PO Q6H PRN PRN Reason: Headache/Pain Mild Scale (1-3) Last Admin: 08/13/23 10:10 Dose: 650 mg Al Hydroxide/Mg Hydroxide (Magnesium Hydrox/Alum Hydrox 30 Ml Oral.Susp) 30 ml PO Q6H PRN PRN Reason: Heartburn/Nausea Amlodipine Besylate (Amlodipine Besylate 10 Mg Tablet) 10 mg PO DAILY ALEKSANDRA; Protocol Last Admin: 09/21/23 08:35 Dose: 10 mg Clonazepam (Clonazepam 1 Mg Tablet) 1 mg PO TID [facility] Last Admin: 08/13/23 08:35 Dose: 1 mg Diphenhydramine HCl (Diphenhydramine Hcl 25 Mg Capsule) 25 mg PO BEDTIME PRN PRN Reason: insomnia Last Admin: 08/12/23 21:13 Dose: 25 mg Fluticasone Propionate (Fluticasone Propionate Nasal 16 Gm [place]) 2 spray NOSTRIL-B DAILY [facility] Last Admin: 08/13/23 08:39 Dose: Not Given Hydroxyzine HCl (Hydroxyzine Hcl 25 Mg Tablet) 25 mg PO Q6H PRN PRN Reason: Anxiety Ibuprofen (Ibuprofen 400 Mg Tablet) 400 mg PO Q6H PRN PRN Reason: Pain, Moderate(Pain Scale 4-6) Levothyroxine Sodium (Levothyroxine Sodium 50 Mcg Tablet) 50 mcg PO DAILY@0600 [facility] Last Admin: 08/13/23 06:57 Dose: 50 mcg Loratadine (Loratadine 10 Mg Tablet) 10 mg PO DAILY [facility] Last Admin: 08/13/23 08:35 Dose: 10 mg Magnesium Hydroxide (Milk Of Magnesia 30 Ml Oral.Susp) 30 ml PO DAILY PRN PRN Reason: Constipation Multi-Ingred Cream/Lotion/Oil/Oint (Mineral Oil/Petrolatum,White 106 Gm Tube) 1 appl TOPICAL BID [facility]; Protocol Nicotine Polacrilex (Nicotine Polacrilex 2 Mg Gum) 4 mg BUCCAL Q2H PRN PRN Reason: Nicotine Cravings Non-Formulary Medication (Ramelteon [Rozerem]) 8 mg PO BEDTIME [facility] Quetiapine Fumarate (Quetiapine Fumarate 400 Mg Tablet) 400 mg PO DAILY [facility] Last Admin: 08/13/23 08:35 Dose: 400 mg Quetiapine Fumarate (Quetiapine Fumarate 400 Mg Tablet) 800 mg PO BEDTIME [facility] Last Admin: 08/12/23 21:13 Dose: 800 mg Trazodone HCl (Trazodone Hcl 50 Mg Tablet) 50 mg PO BEDTIME MRX1 PRN PRN Reason: Insomnia Allergies Allergies Allergy/AdvReac Type Severity Reaction Status Date / Time haloperidol [From HALDOL] Allergy Intermediate LOWERS Verified 06/10/23 12:47 HEART RATE trazodone AdvReac Intermediate Hives Verified 07/19/23 12:47 Assessment & Plan Assessment & Plan (1) PTSD (post-traumatic stress disorder): Status: Acute Code(s): F43.10 - Post-traumatic stress disorder, unspecified (2) Borderline personality disorder: Status: Acute Code(s): F60.3 - Borderline personality disorder Plan The [facility] voluntary she was given a Hawkins warning. Her mood is anxious dysphoric with some degree of racing thoughts and pressured speech she is denying current suicidal plan or intent. She is complaining of pain this side of her head and draw she does report recent hallucinations degree of paranoia and some this appears to be PTSD and dissociative related. Was reportedly stable on Seroquel was reported to have been taken off of lithium when in [place] will reassess need for mood stabilizing agent assess safety will get hospitalist recommendations for scalp infection jaw pain monitor safety for herself and others or will add Motrin patient no longer on lithium otherwise continue present medication 08/13/23 Pt on large dose of seroquel 1200 mg remains irritable reactive Patient educated on: medication risk/benefits Informed Consent: further education needed Reason for continued inpatient stay Substantial Risk for: harm to self and rapid decompensation Time Spent With Patient Time: Total time managing care of this patient today ____ minutes.
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
[2023-08-13 17:05] LABS: COVID-19 Test Negative (Negative); IDNOW Serial# 9DB6401D
[2023-08-13 20:00] VITALS: BP 112/79; PULSE 98; RESP 18; TEMP 36.2; O2SAT 98
[2023-08-13] MEDS: QUEtiapine Fumarate 400 MG TABLET 800 MG PO (20:37)
[2023-08-13] MEDS: diphenhydrAMINE HCL 25 MG CAPSULE PO (20:37)
[2023-08-13] MEDS: Mineral Oil/Petrolatum,White 106 GM Tube 1 APPL TOPICAL (21:25)
[2023-08-14] MEDS: Levothyroxine Sodium 50 MCG TABLET PO (06:29)
--- NOTE | 2023-08-14 08:00 | ECG_ITS ---
Test Reason : qtc check Blood Pressure : / mmHG Vent. Rate : 091 BPM Atrial Rate : 091 BPM P-R Int : 118 ms QRS Dur : 086 ms QT Int : 360 ms P-R-T Axes : 061 046 098 degrees QTc Int : 442 ms Normal sinus rhythm Nonspecific T wave abnormality Abnormal ECG When compared with ECG of 11-AUG-2023 10:06, No significant change was found Referred By: Ruddy Beasley Electronically Signed By:ROD GORMAN
[2023-08-14 09:27] VITALS: BP 134/88; PULSE 98; RESP 18; TEMP 35.9; O2SAT 98
[2023-08-14] MEDS: Fluticasone Propionate Nasal 16 GM SPRAY 2 SPRAY NOSTRIL-B (09:28)
[2023-08-14] MEDS: Bacitracin Oint 14 GM TUBE 1 APPL TOPICAL ×2 (09:28→21:22)
[2023-08-14] MEDS: Loratadine 10 MG TABLET PO (09:29)
[2023-08-14] MEDS: QUEtiapine Fumarate 400 MG TABLET PO (09:29)
[2023-08-14] MEDS: amLODIPine Besylate 10 MG TABLET PO (09:29)
[2023-08-14] MEDS: clonazePAM 1 MG TABLET PO ×3 (09:29→21:20)
[2023-08-14] MEDS: Mineral Oil/Petrolatum,White 106 GM Tube 1 APPL TOPICAL ×2 (09:29→21:21)
[2023-08-14] MEDS: Doxycycline Monohydrate 100 MG CAPSULE PO (17:55)
[2023-08-14] MEDS: Magnesium Hydrox/Alum Hydrox 30 ML ORAL.SUSP PO (19:31)
[2023-08-14 21:10] VITALS: BP 128/74; PULSE 97; RESP 18; TEMP 36.2; O2SAT 97
[2023-08-14] MEDS: QUEtiapine Fumarate 400 MG TABLET 800 MG PO (21:20)
[2023-08-14] MEDS: diphenhydrAMINE HCL 25 MG CAPSULE PO (21:24)
--- NOTE | 2023-08-14 22:47 | HO.PSYCHPN ---
Subjective Subjective Date of Service: 08/14/23 Reason For Visit: psychosis Subjective Notes: Conditional Voluntary Interim History: Patient seen in psychiatric follow-up. The patient is mood is improved she feels much calmer more stable denies active self-harm less labile less irritable not overly aggressive. Hospital consult read and appreciated Medication Compliance: Yes Mental Status Exam Mental Status Exam Patient Appearance: Fatigued Patient Orientation: Person, Place and Situation Level of Consciousness: Alert Patient Behavior: Appropriate, Talkative and Cooperative Mood Description: Anxious, Labile, Angry and Apprehensive Affect Description: Depressed, Anxious, Labile and Apprehensive Patient Cognition Impaired: No Ability to Follow Directions: Fair Speech Pattern: Spontaneous Speech, Rapid and Animated Memory Description: Working Impaired Hallucinations: None Delusions: Not Present Thought Process: Rumination Thought Content: positive for Perseveration and positive for Preoccupation Depressive Symptoms: Increased Anxiety and Increased Irritability Judgement: Fair Judgement and Insight: impaired impulse control Diagnostics Vital Signs (24Hr): Vital Signs - 24 hr 08/14/23 09:27 Temperature 96.7 F L Pulse Rate 98 Respiratory Rate 18 Blood Pressure 134/88 Pulse Oximetry 98 Oxygen Delivery Method Room Air BMI result Body Mass Index 25.2 Labs 08/10/23 19:44 08/12/23 13:37 Labs: Laboratory Results - last 48 hr 08/13/23 16:45 COVID-19 ([facility]) Negative COVID-19 Clin Com See Note Medications Medications Current Medications Acetaminophen (Acetaminophen 325 Mg Tablet) 650 mg PO Q6H PRN PRN Reason: Headache/Pain Mild Scale (1-3) Last Admin: 08/13/23 10:10 Dose: 650 mg Al Hydroxide/Mg Hydroxide (Magnesium Hydrox/Alum Hydrox 30 Ml Oral.Susp) 30 ml PO Q6H PRN PRN Reason: Heartburn/Nausea Last Admin: 08/14/23 19:31 Dose: 30 ml Amlodipine Besylate (Amlodipine Besylate 10 Mg Tablet) 10 mg PO DAILY [facility]; Protocol Last Admin: 08/14/23 09:29 Dose: 10 mg Bacitracin (Bacitracin Oint 14 Gm Tube) 1 appl TOPICAL BID ALEKSANDRA; Protocol Last Admin: 08/14/23 21:22 Dose: 1 appl Clonazepam (Clonazepam 1 Mg Tablet) 1 mg PO TID ALEKSANDRA Last Admin: 08/14/23 21:20 Dose: 1 mg Diphenhydramine HCl (Diphenhydramine Hcl 25 Mg Capsule) 25 mg PO BEDTIME PRN PRN Reason: insomnia Last Admin: 08/14/23 21:24 Dose: 25 mg Doxycycline Monohydrate (Doxycycline Monohydrate 100 Mg Capsule) 100 mg PO Q12H [facility] Last Admin: 08/14/23 17:55 Dose: 100 mg Fluticasone Propionate (Fluticasone Propionate Nasal 16 Gm [place]) 2 spray NOSTRIL-B DAILY [facility] Last Admin: 08/14/23 09:28 Dose: 2 spray Hydroxyzine HCl (Hydroxyzine Hcl 25 Mg Tablet) 25 mg PO Q6H PRN PRN Reason: Anxiety Ibuprofen (Ibuprofen 400 Mg Tablet) 400 mg PO Q6H PRN PRN Reason: Pain, Moderate(Pain Scale 4-6) Levothyroxine Sodium (Levothyroxine Sodium 50 Mcg Tablet) 50 mcg PO DAILY@0600 [facility] Last Admin: 08/14/23 06:29 Dose: 50 mcg Loratadine (Loratadine 10 Mg Tablet) 10 mg PO DAILY [facility] Last Admin: 08/14/23 09:29 Dose: 10 mg Magnesium Hydroxide (Milk Of Magnesia 30 Ml Oral.Susp) 30 ml PO DAILY PRN PRN Reason: Constipation Multi-Ingred Cream/Lotion/Oil/Oint (Mineral Oil/Petrolatum,White 106 Gm Tube) 1 appl TOPICAL BID [facility]; Protocol Last Admin: 08/14/23 21:21 Dose: 1 appl Nicotine Polacrilex (Nicotine Polacrilex 2 Mg Gum) 4 mg BUCCAL Q2H PRN PRN Reason: Nicotine Cravings Non-Formulary Medication (Ramelteon [Rozerem]) 8 mg PO BEDTIME [facility] Quetiapine Fumarate (Quetiapine Fumarate 400 Mg Tablet) 400 mg PO DAILY [facility] Last Admin: 08/14/23 09:29 Dose: 400 mg Quetiapine Fumarate (Quetiapine Fumarate 400 Mg Tablet) 800 mg PO BEDTIME [facility] Last Admin: 08/14/23 21:20 Dose: 800 mg Trazodone HCl (Trazodone Hcl 50 Mg Tablet) 50 mg PO BEDTIME MRX1 PRN PRN Reason: Insomnia Allergies Allergies Allergy/AdvReac Type Severity Reaction Status Date / Time haloperidol [From HALDOL] Allergy Intermediate LOWERS Verified 06/10/23 12:47 HEART RATE trazodone AdvReac Intermediate Hives Verified 06/10/23 12:47 Assessment & Plan Assessment & Plan (1) PTSD (post-traumatic stress disorder): Status: Acute Code(s): F43.10 - Post-traumatic stress disorder, unspecified (2) Borderline personality disorder: Status: Acute Code(s): F60.3 - Borderline personality disorder (3) Bipolar disorder: Status: Acute Code(s): F31.9 - Bipolar disorder, unspecified Plan The [facility] she was given a Hawkins warning. Her mood is anxious dysphoric with some degree of racing thoughts and pressured speech she is denying current suicidal plan or intent. She is complaining of pain this side of her head and draw she does report recent hallucinations degree of paranoia and some this appears to be PTSD and dissociative related. Was reportedly stable on Seroquel was reported to have been taken off of lithium when in [place] will reassess need for mood stabilizing agent assess safety will get hospitalist recommendations for scalp infection jaw pain monitor safety for herself and others or will add Motrin patient no longer on lithium otherwise continue present medication 08/13/23 Pt on large dose of seroquel 1200 mg remains irritable reactive 08/14/23 Patient seems to be stabilizing denies current self-harming thoughts seems to be tolerating Seroquel and stabilizing continue plan of care Patient educated on: diagnosis and medication risk/benefits Informed Consent: further education needed Reason for continued inpatient stay Substantial Risk for: harm to self, inability to function and rapid decompensation Time Spent With Patient Time: Total time managing care of this patient today ____ minutes.
[2023-08-14 23:22] LABS: COVID-19 Test Negative (Negative); IDNOW Serial# 6674DD1D
[2023-08-15] MEDS: Levothyroxine Sodium 50 MCG TABLET PO (06:24)
[2023-08-15] MEDS: Doxycycline Monohydrate 100 MG CAPSULE PO ×2 (06:24→16:21)
[2023-08-15 08:45] VITALS: BP 134/82; PULSE 92; RESP 18; TEMP 36.1; O2SAT 98
[2023-08-15] MEDS: Bacitracin Oint 14 GM TUBE 1 APPL TOPICAL ×2 (09:24→21:05)
[2023-08-15] MEDS: Fluticasone Propionate Nasal 16 GM SPRAY 2 SPRAY NOSTRIL-B (09:24)
[2023-08-15] MEDS: clonazePAM 1 MG TABLET PO ×3 (09:24→21:02)
[2023-08-15] MEDS: Mineral Oil/Petrolatum,White 106 GM Tube 1 APPL TOPICAL ×2 (09:24→21:05)
[2023-08-15] MEDS: Loratadine 10 MG TABLET PO (09:25)
[2023-08-15] MEDS: QUEtiapine Fumarate 400 MG TABLET PO (09:25)
[2023-08-15] MEDS: amLODIPine Besylate 10 MG TABLET PO (09:25)
--- NOTE | 2023-08-15 18:33 | HO.PSYCHPN ---
Subjective Subjective Date of Service: 08/15/23 Reason For Visit: psychosis Interim History: Patient seen in psychiatric follow-up. The patient is mood is improved she feels much calmer more stable denies active self-harm less labile less irritable not aggressive. Review of Systems Review of Systems Constitutional : No Weight loss, No Fever, No Chills, No Night Sweats, No Fatigue, No Malaise ENT/Mouth : No Hearing loss, No Ear Pain, No Nasal Congestion, No Sinus Pain, No Hoarseness, No sore throat, No Rhinorrhea, No Swallowing Difficulty Eyes: No Eye Pain, No Swelling, No Redness, No Foreign Body, No Discharge, No Vision Changes Cardiovascular : No Chest Pain, No SOB, No Dyspnea on Exertion, No Orthopnea, No Edema, No Palpitations Respiratory : No Cough, No Sputum, No Wheezing, No Smoke Exposure, No Dyspnea Gastrointestinal : No Nausea, No Vomiting, No Diarrhea, No Constipation, No abdominal Pain, No Hematochezia, No Melena Genitourinary : no irregular bleeding, No Dysuria, No Urinary Frequency, No Hematuria, No Urinary Incontinence, No Urgency, No Flank Pain, No Urinary Flow Changes, No Hesitancy Musculoskeletal : No joint pain, No Myalgias, No Joint Swelling Skin : No Skin Lesions, No rash Neuro : No Weakness, No Numbness, No Paresthesias, No Loss of Consciousness, No Dizziness, No Headache Psych : Lining of anxiety, depression, of SI, no HI, although early today she told her nurse that she was positive HI towards the [employer] who went to her house Heme/Lymph: No Bruising, No Bleeding,No Lymphadenopathy Endocrine : No Polyuria, No Polydipsia, No Temperature Intolerance Mental Status Exam Mental Status Exam Patient Appearance: Fatigued Patient Orientation: Person, Place and Situation Level of Consciousness: Alert Patient Behavior: Appropriate, Talkative and Cooperative Mood Description: Anxious, Labile, Angry and Apprehensive Affect Description: Depressed, Anxious, Labile and Apprehensive Patient Cognition Impaired: No Ability to Follow Directions: Fair Speech Pattern: Spontaneous Speech, Rapid and Animated Memory Description: Working Impaired Diagnostics Vital Signs (24Hr): Vital Signs - 24 hr 08/14/23 21:10 08/15/23 08:45 Temperature 97.2 F 96.9 F Pulse Rate 97 92 Respiratory Rate 18 18 Blood Pressure 128/74 134/82 Pulse Oximetry 97 98 Oxygen Delivery Method Room Air Room Air BMI result Body Mass Index 25.2 Labs 08/10/23 19:44 08/12/23 13:37 Labs: Laboratory Results - last 48 hr 08/14/23 22:51 COVID-19 ([facility]) Negative COVID-19 Clin Com SEE NOTE Medications Medications Current Medications Acetaminophen (Acetaminophen 325 Mg Tablet) 650 mg PO Q6H PRN PRN Reason: Headache/Pain Mild Scale (1-3) Last Admin: 08/13/23 10:10 Dose: 650 mg Al Hydroxide/Mg Hydroxide (Magnesium Hydrox/Alum Hydrox 30 Ml Oral.Susp) 30 ml PO Q6H PRN PRN Reason: Heartburn/Nausea Last Admin: 08/14/23 19:31 Dose: 30 ml Amlodipine Besylate (Amlodipine Besylate 10 Mg Tablet) 10 mg PO DAILY [facility]; Protocol Last Admin: 08/15/23 09:25 Dose: 10 mg Bacitracin (Bacitracin Oint 14 Gm Tube) 1 appl TOPICAL BID [facility]; Protocol Last Admin: 08/15/23 09:24 Dose: 1 appl Clonazepam (Clonazepam 1 Mg Tablet) 1 mg PO TID [facility] Last Admin: 08/15/23 16:21 Dose: 1 mg Diphenhydramine HCl (Diphenhydramine Hcl 25 Mg Capsule) 25 mg PO BEDTIME PRN PRN Reason: insomnia Last Admin: 08/14/23 21:24 Dose: 25 mg Doxycycline Monohydrate (Doxycycline Monohydrate 100 Mg Capsule) 100 mg PO Q12H [facility] Last Admin: 08/15/23 16:21 Dose: 100 mg Fluticasone Propionate (Fluticasone Propionate Nasal 16 Gm [place]) 2 spray NOSTRIL-B DAILY [facility] Last Admin: 08/15/23 09:24 Dose: 2 spray Hydroxyzine HCl (Hydroxyzine Hcl 25 Mg Tablet) 25 mg PO Q6H PRN PRN Reason: Anxiety Ibuprofen (Ibuprofen 400 Mg Tablet) 400 mg PO Q6H PRN PRN Reason: Pain, Moderate(Pain Scale 4-6) Levothyroxine Sodium (Levothyroxine Sodium 50 Mcg Tablet) 50 mcg PO DAILY@0600 [facility] Last Admin: 08/15/23 06:24 Dose: 50 mcg Loratadine (Loratadine 10 Mg Tablet) 10 mg PO DAILY [facility] Last Admin: 08/15/23 09:25 Dose: 10 mg Magnesium Hydroxide (Milk Of Magnesia 30 Ml Oral.Susp) 30 ml PO DAILY PRN PRN Reason: Constipation Multi-Ingred Cream/Lotion/Oil/Oint (Mineral Oil/Petrolatum,White 106 Gm Tube) 1 appl TOPICAL BID [facility]; Protocol Last Admin: 08/15/23 09:24 Dose: 1 appl Nicotine Polacrilex (Nicotine Polacrilex 2 Mg Gum) 4 mg BUCCAL Q2H PRN PRN Reason: Nicotine Cravings Non-Formulary Medication (Ramelteon [Rozerem]) 8 mg PO BEDTIME [facility] Quetiapine Fumarate (Quetiapine Fumarate 400 Mg Tablet) 400 mg PO DAILY [facility] Last Admin: 08/15/23 09:25 Dose: 400 mg Quetiapine Fumarate (Quetiapine Fumarate 400 Mg Tablet) 800 mg PO BEDTIME [facility] Last Admin: 08/14/23 21:20 Dose: 800 mg Trazodone HCl (Trazodone Hcl 50 Mg Tablet) 50 mg PO BEDTIME MRX1 PRN PRN Reason: Insomnia Allergies Allergies Allergy/AdvReac Type Severity Reaction Status Date / Time haloperidol [From HALDOL] Allergy Intermediate LOWERS Verified 06/10/23 12:47 HEART RATE trazodone AdvReac Intermediate Hives Verified 06/10/23 12:47 Assessment & Plan Assessment & Plan (1) PTSD (post-traumatic stress disorder): Status: Acute Code(s): F43.10 - Post-traumatic stress disorder, unspecified (2) Borderline personality disorder: Status: Acute Code(s): F60.3 - Borderline personality disorder (3) Bipolar disorder: Status: Acute Code(s): F31.9 - Bipolar disorder, unspecified Plan [facility] she was given a Hawkins warning. Her mood is anxious dysphoric with some degree of racing thoughts and pressured speech she is denying current suicidal plan or intent. She is complaining of pain this side of her head and draw she does report recent hallucinations degree of paranoia and some this appears to be PTSD and dissociative related. Was reportedly stable on Seroquel was reported to have been taken off of lithium when in [place] will reassess need for mood stabilizing agent assess safety will get hospitalist recommendations for scalp infection jaw pain monitor safety for herself and others or will add Motrin patient no longer on lithium otherwise continue present medication 08/13/23 Pt on large dose of seroquel 1200 mg remains irritable reactive 08/14/23 Patient seems to be stabilizing denies current self-harming thoughts seems to be tolerating Seroquel and stabilizing continue plan of care 08/15: Continue current plan of care. Reason for continued inpatient stay Substantial Risk for: harm to self, inability to function and rapid decompensation Time Spent With Patient Time: Total time managing care of this patient today ____ minutes.
[2023-08-15 20:18] VITALS: BP 104/67; PULSE 96; RESP 16; TEMP 36.3; O2SAT 97
[2023-08-15] MEDS: QUEtiapine Fumarate 400 MG TABLET 800 MG PO (21:01)
[2023-08-15] MEDS: diphenhydrAMINE HCL 25 MG CAPSULE PO (21:02)
[2023-08-15] MEDS: Ibuprofen 400 MG TABLET PO (21:02)
[2023-08-16] MEDS: Levothyroxine Sodium 50 MCG TABLET PO (06:31)
[2023-08-16] MEDS: Doxycycline Monohydrate 100 MG CAPSULE PO ×2 (06:31→16:03)
[2023-08-16 08:40] VITALS: BP 122/83; PULSE 86; RESP 18; TEMP 36.1; O2SAT 97
[2023-08-16] MEDS: QUEtiapine Fumarate 400 MG TABLET PO (08:48)
[2023-08-16] MEDS: amLODIPine Besylate 10 MG TABLET PO (08:48)
[2023-08-16] MEDS: Loratadine 10 MG TABLET PO (08:48)
[2023-08-16] MEDS: Ibuprofen 400 MG TABLET PO (08:49)
[2023-08-16] MEDS: Mineral Oil/Petrolatum,White 106 GM Tube 1 APPL TOPICAL ×2 (08:53→20:58)
[2023-08-16] MEDS: Bacitracin Oint 14 GM TUBE 1 APPL TOPICAL ×2 (08:53→21:15)
[2023-08-16] MEDS: clonazePAM 1 MG TABLET PO ×3 (10:08→20:59)
--- NOTE | 2023-08-16 13:21 | HO.PSYCHPN ---
Subjective Subjective Date of Service: 08/16/23 Reason For Visit: psychosis Interim History: Patient seen in psychiatric follow-up. Complains of chronic left shoulder pain. She received a Lidocaine patch and PRN Motrin. She was resting when this examiner approached. Per team, her mood is improved and she feels calmer more stable. Denies SI. She is less labile, less irritable and not aggressive. Review of Systems Review of Systems Constitutional : No Weight loss, No Fever, No Chills, No Night Sweats, No Fatigue, No Malaise ENT/Mouth : No Hearing loss, No Ear Pain, No Nasal Congestion, No Sinus Pain, No Hoarseness, No sore throat, No Rhinorrhea, No Swallowing Difficulty Eyes: No Eye Pain, No Swelling, No Redness, No Foreign Body, No Discharge, No Vision Changes Cardiovascular : No Chest Pain, No SOB, No Dyspnea on Exertion, No Orthopnea, No Edema, No Palpitations Respiratory : No Cough, No Sputum, No Wheezing, No Smoke Exposure, No Dyspnea Gastrointestinal : No Nausea, No Vomiting, No Diarrhea, No Constipation, No abdominal Pain, No Hematochezia, No Melena Genitourinary : no irregular bleeding, No Dysuria, No Urinary Frequency, No Hematuria, No Urinary Incontinence, No Urgency, No Flank Pain, No Urinary Flow Changes, No Hesitancy Musculoskeletal : No joint pain, No Myalgias, No Joint Swelling Skin : No Skin Lesions, No rash Neuro : No Weakness, No Numbness, No Paresthesias, No Loss of Consciousness, No Dizziness, No Headache Psych : Lining of anxiety, depression, of SI, no HI, although early today she told her nurse that she was positive HI 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 Heme/Lymph: No Bruising, No Bleeding,No Lymphadenopathy Endocrine : No Polyuria, No Polydipsia, No Temperature Intolerance Mental Status Exam Mental Status Exam Patient Appearance: Fatigued Patient Orientation: Person, Place and Situation Level of Consciousness: Alert Patient Behavior: Appropriate, Talkative and Cooperative Mood Description: Anxious, Labile, Angry and Apprehensive Affect Description: Depressed, Anxious, Labile and Apprehensive Patient Cognition Impaired: No Ability to Follow Directions: Fair Speech Pattern: Spontaneous Speech, Rapid and Animated Memory Description: Working Impaired Diagnostics Vital Signs (24Hr): Vital Signs - 24 hr 08/15/23 20:18 08/16/23 08:40 Temperature 97.4 F 96.9 F Pulse Rate 96 86 Respiratory Rate 16 18 Blood Pressure 104/67 122/83 Pulse Oximetry 97 97 Oxygen Delivery Method Room Air Room Air BMI result Body Mass Index 25.2 Labs 08/10/23 19:44 08/12/23 13:37 Labs: Laboratory Results - last 48 hr 08/14/23 22:51 COVID-19 ([facility]) Negative COVID-19 Clin Com SEE NOTE Medications Medications Current Medications Acetaminophen (Acetaminophen 325 Mg Tablet) 650 mg PO Q6H PRN PRN Reason: Headache/Pain Mild Scale (1-3) Last Admin: 08/13/23 10:10 Dose: 650 mg Al Hydroxide/Mg Hydroxide (Magnesium Hydrox/Alum Hydrox 30 Ml Oral.Susp) 30 ml PO Q6H PRN PRN Reason: Heartburn/Nausea Last Admin: 08/14/23 19:31 Dose: 30 ml Amlodipine Besylate (Amlodipine Besylate 10 Mg Tablet) 10 mg PO DAILY [facility]; Protocol Last Admin: 08/16/23 08:48 Dose: 10 mg Bacitracin (Bacitracin Oint 14 Gm Tube) 1 appl TOPICAL BID [facility]; Protocol Last Admin: 08/16/23 08:53 Dose: 1 appl Clonazepam (Clonazepam 1 Mg Tablet) 1 mg PO TID [facility] Last Admin: 08/16/23 10:08 Dose: 1 mg Diphenhydramine HCl (Diphenhydramine Hcl 25 Mg Capsule) 25 mg PO BEDTIME PRN PRN Reason: insomnia Last Admin: 08/15/23 21:02 Dose: 25 mg Doxycycline Monohydrate (Doxycycline Monohydrate 100 Mg Capsule) 100 mg PO Q12H [facility] Last Admin: 08/16/23 06:31 Dose: 100 mg Fluticasone Propionate (Fluticasone Propionate Nasal 16 Gm [place]) 2 spray NOSTRIL-B DAILY [facility] Last Admin: 08/16/23 08:56 Dose: Not Given Hydroxyzine HCl (Hydroxyzine Hcl 25 Mg Tablet) 25 mg PO Q6H PRN PRN Reason: Anxiety Ibuprofen (Ibuprofen 400 Mg Tablet) 400 mg PO Q6H PRN PRN Reason: Pain, Moderate(Pain Scale 4-6) Last Admin: 08/16/23 08:49 Dose: 400 mg Levothyroxine Sodium (Levothyroxine Sodium 50 Mcg Tablet) 50 mcg PO DAILY@0600 [facility] Last Admin: 08/16/23 06:31 Dose: 50 mcg Loratadine (Loratadine 10 Mg Tablet) 10 mg PO DAILY [facility] Last Admin: 08/16/23 08:48 Dose: 10 mg Magnesium Hydroxide (Milk Of Magnesia 30 Ml Oral.Susp) 30 ml PO DAILY PRN PRN Reason: Constipation Multi-Ingred Cream/Lotion/Oil/Oint (Mineral Oil/Petrolatum,White 106 Gm Tube) 1 appl TOPICAL BID [facility]; Protocol Last Admin: 08/16/23 08:53 Dose: 1 appl Nicotine Polacrilex (Nicotine Polacrilex 2 Mg Gum) 4 mg BUCCAL Q2H PRN PRN Reason: Nicotine Cravings Non-Formulary Medication (Ramelteon [Rozerem]) 8 mg PO BEDTIME [facility] Quetiapine Fumarate (Quetiapine Fumarate 400 Mg Tablet) 400 mg PO DAILY [facility] Last Admin: 08/16/23 08:48 Dose: 400 mg Quetiapine Fumarate (Quetiapine Fumarate 400 Mg Tablet) 800 mg PO BEDTIME [facility] Last Admin: 08/15/23 21:01 Dose: 800 mg Trazodone HCl (Trazodone Hcl 50 Mg Tablet) 50 mg PO BEDTIME MRX1 PRN PRN Reason: Insomnia Allergies Allergies Allergy/AdvReac Type Severity Reaction Status Date / Time haloperidol [From HALDOL] Allergy Intermediate LOWERS Verified 06/10/23 12:47 HEART RATE trazodone AdvReac Intermediate Hives Verified 06/10/23 12:47 Assessment & Plan Assessment & Plan (1) PTSD (post-traumatic stress disorder): Status: Acute Code(s): F43.10 - Post-traumatic stress disorder, unspecified (2) Borderline personality disorder: Status: Acute Code(s): F60.3 - Borderline personality disorder (3) Bipolar disorder: Status: Acute Code(s): F31.9 - Bipolar disorder, unspecified Plan [facility] she was given a Hawkins warning. Her mood is anxious dysphoric with some degree of racing thoughts and pressured speech she is denying current suicidal plan or intent. She is complaining of pain this side of her head and draw she does report recent hallucinations degree of paranoia and some this appears to be PTSD and dissociative related. Was reportedly stable on Seroquel was reported to have been taken off of lithium when in [place] will reassess need for mood stabilizing agent assess safety will get hospitalist recommendations for scalp infection jaw pain monitor safety for herself and others or will add Motrin patient no longer on lithium otherwise continue present medication 08/13/23 Pt on large dose of seroquel 1200 mg remains irritable reactive 08/14/23 Patient seems to be stabilizing denies current self-harming thoughts seems to be tolerating Seroquel and stabilizing continue plan of care 08/15: Continue current plan of care. 08/16: Continue current treatment plan. Reason for continued inpatient stay Substantial Risk for: inability to function and rapid decompensation Time Spent With Patient Time: Total time managing care of this patient today ____ minutes.
[2023-08-16] MEDS: Lidocaine 4 % Patch ADH..PATCH 1 PATCH TRANSDERMA (13:29)
[2023-08-16 20:10] VITALS: BP 142/81; PULSE 94; RESP 18; TEMP 36.3; O2SAT 98
[2023-08-16] MEDS: Acetaminophen 325 MG TABLET 650 MG PO (20:59)
[2023-08-16] MEDS: QUEtiapine Fumarate 400 MG TABLET 800 MG PO (21:00)
[2023-08-16] MEDS: diphenhydrAMINE HCL 25 MG CAPSULE PO (22:56)
[2023-08-16] MEDS: hydrOXYzine HCL 25 MG TABLET PO (22:56)
[2023-08-17] MEDS: Doxycycline Monohydrate 100 MG CAPSULE PO (05:58)
[2023-08-17] MEDS: Levothyroxine Sodium 50 MCG TABLET PO (05:58)
[2023-08-17 06:00] VITALS: BP 134/65; PULSE 79; RESP 18; TEMP 36.2; O2SAT 96
[2023-08-17] MEDS: Loratadine 10 MG TABLET PO (09:13)
[2023-08-17] MEDS: Bacitracin Oint 14 GM TUBE 1 APPL TOPICAL (09:13)
[2023-08-17] MEDS: amLODIPine Besylate 10 MG TABLET PO (09:13)
[2023-08-17] MEDS: QUEtiapine Fumarate 400 MG TABLET PO (09:13)
[2023-08-17] MEDS: clonazePAM 1 MG TABLET PO (09:13)
[2023-08-17] MEDS: Fluticasone Propionate Nasal 16 GM SPRAY 2 SPRAY NOSTRIL-B (09:14)
[2023-08-17] MEDS: Mineral Oil/Petrolatum,White 106 GM Tube 1 APPL TOPICAL (09:14)
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
== END 2023-08-17 11:14 | disposition home or self-care (01) | DRG 753 ==
LOC: HO.ED 19:29 → HO.PADLT16 08-11 14:08
PROVIDERS: Psychiatry & Neurology Psychiatry; Admitting Provider Psychiatry & Neurology Psychiatry; Emergency Provider Emergency Medicine; Responsible Provider Registered Nurse; Visit Provider Psychiatry & Neurology Psychiatry
DX: F31.9 Bipolar disorder, unspecified (principal); R45.851 Suicidal ideations; F60.3 Borderline personality disorder; F43.12 Post-traumatic stress disorder, chronic; Z20.822 Contact with and (suspected) exposure to COVID-19; Z79.51 Long term (current) use of inhaled steroids; Z79.890 Hormone replacement therapy; Z79.899 Other long term (current) drug therapy; Z91.52 Personal history of nonsuicidal self-harm
CPT/HCPCS: 36415; 80048; 80053; 80061; 80076; 80178; 80307; 81001; 82607; 83036; 84439; 84443; 85025; 87635; 93005; 99285

== ENCOUNTER → 2023-08-11 14:07 | Outpatient (BNV) | payer OTHER, SELFPAY | PROVIDERS: Admitting Provider Psychiatry & Neurology Psychiatry; Emergency Provider Emergency Medicine; Visit Provider Psychiatry & Neurology Psychiatry | DX: F31.4 Bipolar disorder, current episode depressed, severe, without psychotic features (principal); F60.3 Borderline personality disorder; F43.11 Post-traumatic stress disorder, acute | CPT/HCPCS: 99231 ==

== ENCOUNTER → 2023-08-11 14:07 | Outpatient (BNV) | payer OTHER, SELFPAY | PROVIDERS: Admitting Provider Psychiatry & Neurology Psychiatry; Emergency Provider Emergency Medicine; Visit Provider Psychiatry & Neurology Psychiatry | DX: F60.3 Borderline personality disorder (principal); F31.9 Bipolar disorder, unspecified; F43.11 Post-traumatic stress disorder, acute | CPT/HCPCS: 90792; 99231; 99233 ==

== ENCOUNTER 2023-10-26 18:09 | Emergency (ER) | payer OTHER, SELFPAY ==
[2023-10-26 19:03] VITALS: PULSE 97; RESP 16; TEMP 37; O2SAT 98; BMI 26.7
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
--- NOTE | 2023-10-26 19:10 | ECG_ITS ---
Test Reason : MED CLEAR Blood Pressure : / mmHG Vent. Rate : 083 BPM Atrial Rate : 083 BPM P-R Int : 124 ms QRS Dur : 088 ms QT Int : 372 ms P-R-T Axes : 058 048 069 degrees QTc Int : 437 ms Normal sinus rhythm Nonspecific T wave abnormality Abnormal ECG When compared with ECG of 14-AUG-2023 11:21, No significant change was found Referred By: Bonita Reid Electronically Signed By:IZABELLA STONE
--- NOTE | 2023-10-26 20:15 | PC.NURSE ---
patient upon arrival to unit expressed itchy pursued medication order for benadryl, patient refused. about half hour later t/w attempted to assess for anxiety patient declined waved t/w away.
[2023-10-26 20:55] LABS: UPreg QC Valid YES; Urine Pregnancy NEGATIVE (NEGATIVE)
[2023-10-26 20:56] LABS: Appearance Urine Clear; Color Urine Yellow; Glucose Urine UA Negative (Negative); Leukocyte Esterase Urine Negative (Negative); Nitrite Urine Negative (Negative); PH 8.5 (5.0-9.0); Urine Blood Negative (Negative); Urine Ketones Negative (Negative); Urine Protein Negative (Neg-Trace)
[2023-10-26 20:59] LABS: Amphetamine Screen Urine Not Detected (Not Detect); Barbiturates, Urine Not Detected (Not Detect); Benzodiazepines Screen Urine Not Detected (Not Detect); Cannabinoid Screen Urine Not Detected (Not Detect); Cocaine Screen Urine POSITIVE (Not Detect); Fentanyl, urine Not Detected (Not Detect); Opiate Screen Urine Not Detected (Not Detect); Phencyclidine Screen Urine Not Detected (Not Detect)
[2023-10-26 21:06] LABS: COVID-19 Test Negative (Negative); IDNOW Serial# 9DB6401D
[2023-10-26 21:56] VITALS: BP 122/65; PULSE 51; RESP 17; TEMP 36.6; O2SAT 97
--- NOTE | 2023-10-26 22:50 | PC.NURSE ---
client presented with clonazepam and declined it asked about seroquel
[2023-10-26 22:53] LABS: MANUAL DIFF FLAG NO
[2023-10-26 22:55] LABS: Basophils Percent Auto 0.4 % (0-2); Eosinophils Absolute Auto 0.1 X10*3/uL (0.0-0.4); Eosinophils Percent Auto 1.3 % (0-4); Hematocrit 38.3 % (37.0-47.0); Hemoglobin 12.3 g/dl (12.0-16.0); Imm Gran Abs Auto 0.04 X10*3/uL (0.00-0.03); Imm Gran Pct Auto 0.5 % (0.0-0.4); Lymphocytes Absolute Auto 2.9 X10*3/uL (1.2-4.9); Lymphocytes Percent Auto 38.6 % (20-40); Mean Corpuscular HGB Conc 32.1 g/dl (31.0-35.0); Mean Corpuscular Hemoglobin 29.9 pg (27.0-33.0); Mean Platelet Volume 9.8 fL (9.4-12.3); Monocytes Absolute Auto 0.8 X10*3/uL (0.1-1.2); Monocytes Percent Auto 9.9 % (2-11); Neutrophils Absolute Auto 3.8 x10*3/uL (2.0-8.3); Neutrophils Percent Auto 49.3 % (45-73); Platelet Count 248 X10*3/uL (160-400); Red Blood Count 4.12 X10*6/uL (4.20-5.50); Red Cell Distribution Width 12.7 % (11.0-16.0); White Blood Count 7.6 X10*3/uL (4.8-10.8)
[2023-10-26] MEDS: QUEtiapine Fumarate 300 MG TABLET 800 MG PO (23:05)
[2023-10-26 23:08] LABS: Alanine Aminotransferase 17 U/L (0-31); Albumin Level 4.6 g/dL (3.5-5.0); Alkaline Phosphatase 86 U/L (39-117); Anion Gap 17 (12-20); Aspartate Amino Transferase 23 U/L (5-31); Bilirubin Total 0.5 mg/dL (0.0-1.0); Blood Urea Nitrogen 4 mg/dL (9-16); Calcium 10.2 mg/dL (8.4-10.2); Carbon Dioxide 26 mmol/L (22-29); Chloride 105 mmol/L (96-108); Creatinine Clr Calc Pharmacy 89.3; Estimated Glomerular Filt Rate > 60; Ethanol < 10 mg/dL; Glucose Random 122 mg/dL (60-115); Potassium 3.6 mmol/L (3.3-5.1); Sodium 144 mmol/L (135-145); Total Protein 9.6 g/dL (6.5-8.0)
[2023-10-26 23:09] LABS: Acetaminophen LAB < 3 mcg/mL (<30); Salicylate < 5.0 mg/dL (15-30)
[2023-10-26 23:58] LABS: IDNOW Serial# 08D9AD1C; Influenza A Negative (Negative); Influenza B2 Negative (Negative)
[2023-10-27 06:44] VITALS: BP 111/72; PULSE 84; RESP 17; TEMP 36.6; O2SAT 97
--- NOTE | 2023-10-27 08:18 | PC.NURSE ---
REPORT RECEIVED FROM DEE WANG. PT IS SLEEPING RESP EVEN AND UNLABORED.
--- NOTE | 2023-10-27 09:59 | PC.NURSE ---
PT IS BEING SEEN BY CARE TEAM. PT AWARE OF PLAN OF CARE.
[2023-10-27] MEDS: NeoMY/Polymyx/Dexameth Oph Sus 5 ML BOTTLE 1 DROP EYE-BOTH (10:00)
--- NOTE | 2023-10-27 15:03 | PC.NURSE ---
PT OOB and in milieu for this shift. Pleasant when engaged but frustrated at the language barrier when staff couldn't immediately understand her needs. Surgery Scheduling Coordinator services utilized multiple times and patients needs were met. Appetite good. Denies SI/HI/AVH. Client to D/C home. Reports she has medications coming from [facility] this afternoon.
[2023-10-27 15:06] VITALS: RESP 16
--- NOTE | 2023-10-27 15:10 | MHC.CARE ---
Patient evaluated by the CARE Team, she does not need inpatient psychiatric care at this time, written assessment in progress.
== END 2023-10-27 15:07 | disposition home or self-care (01) ==
PROVIDERS: Nurse Practitioner Family; Physician Assistant Medical; Emergency Provider Emergency Medicine Emergency Medical Services
DX: F43.12 Post-traumatic stress disorder, chronic (principal); F31.9 Bipolar disorder, unspecified; H10.9 Unspecified conjunctivitis; R94.31 Abnormal electrocardiogram [ECG] [EKG]; Z11.52 Encounter for screening for COVID-19; Z20.822 Contact with and (suspected) exposure to COVID-19; Z79.899 Other long term (current) drug therapy
CPT/HCPCS: 80053; 80143; 80179; 80307; 81003; 81025; 85025; 87502; 87635; 93005; 99284; S9485

== ENCOUNTER → 2023-10-26 19:10 | Outpatient (BNV) | payer MEDICAID, SELFPAY | PROVIDERS: Emergency Provider Student in an Organized Health Care Education/Training Program; Visit Provider Internal Medicine | DX: R94.31 Abnormal electrocardiogram [ECG] [EKG] (principal) | CPT/HCPCS: 93010 ==

== ENCOUNTER 2023-12-23 14:01 | Inpatient (IN) | payer OTHER, SELFPAY ==
[2023-12-23] VITALS (10 sets, daily range): RESP 16–20; BMI 21.7
--- NOTE | 2023-12-23 14:29 | PC.NURSE ---
Pt awake, alert, irish speaking only. Breathing even and unlabored. Pt appears agitated, speaking rapidly in Croatian. Staff Counselor at bedside, nurses attempted to interview and assess pt with no success. pt adamant she does not want to speak with anyone, vital signs or be assessed. pt on 1:1, sitter in room.
--- NOTE | 2023-12-23 15:33 | PC.NURSE ---
Belongings in laundry area in POD
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
--- NOTE | 2023-12-23 16:13 | PC.NURSE ---
Attempted to explain to pt plan with staff medical professionals, pt only becomes agitated with any interaction. Continues to refuses all care at this time. 1:1 pt observer with pt. Pt just states I want to go home, I dont need to be here Dr Escobedo aware.
--- NOTE | 2023-12-23 16:15 | MHC.EDTECH ---
Patient refused to give urine sample. refused phlebotomy, and vital signs.
--- NOTE | 2023-12-23 16:17 | MHC.EDTECH ---
Patient refused EKG.
--- NOTE | 2023-12-23 17:42 | PC.NURSE ---
Called admissions and made aware pt refusing all care. Awaiting call back after staff follows up with director regarding this patient to see if further evaluation is needed prior to admit, Dr Escobedo aware.
[2023-12-23 19:26] LABS: COVID-19 Test Negative (Negative); IDNOW Serial# 6674DD1D
--- NOTE | 2023-12-23 20:52 | MHC.EDTECH ---
Patient refused care. Unable to collect urine, labs or do EKG
[2023-12-23] MEDS: diphenhydrAMINE HCL 50 MG/ML VIAL IM (21:31)
[2023-12-23] MEDS: Ziprasidone Mesylate 20 MG VIAL IM (21:31)
[2023-12-23] MEDS: OLANZapine 10 MG VIAL IM (21:32)
--- NOTE | 2023-12-23 21:39 | PC.NURSE ---
PT STARTED TO YELL AT STAFF AND HIT HERSELF. PROVIDER MADE AWARE AND SECURITY AT BEDSIDE. PT WAS VOLUNTARILY MEDICATED VIA IM.
--- NOTE | 2023-12-23 22:44 | PC.NURSE ---
pt continues to be calm and cooperative, resting quietly with sitter at bedside.
--- NOTE | 2023-12-23 23:37 | PC.NURSE ---
nurse to nurse report given to Marcus PRICE
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
[2023-12-24 09:08] VITALS: RESP 16
--- NOTE | 2023-12-24 09:12 | PC.NURSE ---
Pt is declining flu shot and nicotine replacement at this time. Pt reports being a current smoker, no other info given.
--- NOTE | 2023-12-24 09:33 | PC.NURSE ---
Pt refused labs.
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
[2023-12-24 19:25] VITALS: BP 127/80; PULSE 80; RESP 16; O2SAT 97
--- NOTE | 2023-12-24 20:02 | ECG_ITS ---
Test Reason : RHYTHM CHECK, CP Blood Pressure : / mmHG Vent. Rate : 080 BPM Atrial Rate : 080 BPM P-R Int : 112 ms QRS Dur : 086 ms QT Int : 372 ms P-R-T Axes : 075 056 136 degrees QTc Int : 429 ms Normal sinus rhythm Septal infarct , age undetermined ST & T wave abnormality, consider lateral ischemia Abnormal ECG When compared with ECG of 27-OCT-2023 00:27, Septal infarct is now Present Inverted T waves have replaced nonspecific T wave abnormality in Lateral leads Referred By: Garcia Gonzalez Electronically Signed By:SHAHRIAR ZAPATA MD
[2023-12-24] MEDS: NaPROXEN 250 MG TABLET PO (21:32)
[2023-12-24] MEDS: clonazePAM 1 MG TABLET PO (21:32)
[2023-12-24] MEDS: QUEtiapine Fumarate 400 MG TABLET PO (21:32)
[2023-12-24] MEDS: diphenhydrAMINE HCL 25 MG CAPSULE PO (21:36)
--- NOTE | 2023-12-24 21:40 | PC.NURSE ---
Patient c/o chest pain at 1445 Dr. Gonzalez notified. BP 127/80 PULSE OF 80 rr 16. STAT EKG ordered. EKG done and result texted to Dr. Gonzalez. Patient no longer c/o chest pain, and eating a sandwich, chips and drinking charles dre. She refused her HS Olanzapine 5 mg po.
--- NOTE | 2023-12-24 23:18 | PC.NURSE ---
Patient refused to have any lab work done. Did not want to give a urine specimen.
[2023-12-25] MEDS: Levothyroxine Sodium 50 MCG TABLET PO (06:14)
[2023-12-25] MEDS: Acetaminophen 325 MG TABLET 650 MG PO (13:38)
[2023-12-25] MEDS: clonazePAM 1 MG TABLET PO ×2 (13:39→20:28)
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
[2023-12-25 17:17] VITALS: BP 147/81; PULSE 93; RESP 16; TEMP 36.2; O2SAT 98
--- NOTE | 2023-12-25 18:42 | PC.NURSE ---
Assumed care of pt at 18:45, currently in hallway, interacting with staff. Appears to be in no distress. Offers no complaints @ this time.
[2023-12-25] MEDS: QUEtiapine Fumarate 400 MG TABLET PO (20:28)
[2023-12-25] MEDS: diphenhydrAMINE HCL 25 MG CAPSULE PO (20:28)
[2023-12-26] MEDS: Levothyroxine Sodium 50 MCG TABLET PO (05:38)
[2023-12-26 06:00] VITALS: BP 133/68; PULSE 98; RESP 18; TEMP 36; O2SAT 98
[2023-12-26] MEDS: QUEtiapine Fumarate 400 MG TABLET PO ×2 (09:16→20:52)
[2023-12-26] MEDS: clonazePAM 1 MG TABLET PO ×2 (09:16→20:52)
--- NOTE | 2023-12-26 10:54 | P.PNPSI_ITS ---
Subjective Subjective Date of Service: 12/26/23 Reason For Visit: Jenna Interim History: Met with patient. Discussed with Nursing. Interviewed with Macedonian-speaking nursing staff, which patient was comfortable with. Has been singing in the hallways at times. sleep okay. Pleasant. Refusing some medications. Denies all symptoms. Reports that she is fine with the exception of her right shoulder hurting and requesting a lidocaine patch. Was initially considering medication adjustments, but then stated that she did not want any changes in that she has been on as much as 600 mg of Seroquel in single doses and still walking and nothing stops me Medication Compliance: Intermittent Side effects from medications: No Attending Groups: Intermittent Review of Systems Acute medical concerns: No Review of Systems Review of Systems Right shoulder pain, which is chronic Mental Status Exam Mental Status Exam Narrative: was engaged with science writer and Macedonian speaking staff. Casually dressed presented. Speech was pressured at times. Was observed in the hallways being loud at times with another peer. Appears at least hypomanic. Denies SI or HI. No overt delusions or hallucinations noted. Insight and judgment does appear limited at times Diagnostics Vital Signs (24Hr): Vital Signs - 24 hr 12/25/23 17:17 12/26/23 06:00 Temperature 97.2 F 96.8 F Pulse Rate 93 98 Respiratory Rate 16 18 Blood Pressure 147/81 H 133/68 Pulse Oximetry 98 98 Oxygen Delivery Method Room Air Room Air BMI result Body Mass Index 21.7 Medications Medications Current Medications Acetaminophen (Acetaminophen 325 Mg Tablet) 650 mg PO Q6H PRN PRN Reason: Headache/Pain Mild Scale (1-3) Last Admin: 12/25/23 13:38 Dose: 650 mg Al Hydroxide/Mg Hydroxide (Magnesium Hydrox/Alum Hydrox 30 Ml Oral.Susp) 30 ml PO Q6H PRN PRN Reason: Heartburn/Nausea Amlodipine Besylate (Amlodipine Besylate 10 Mg Tablet) 10 mg PO DAILY [facility]; Protocol Last Admin: 12/26/23 09:20 Dose: Not Given Clonazepam (Clonazepam 1 Mg Tablet) 1 mg PO TID [facility] Last Admin: 12/26/23 09:16 Dose: 1 mg Diphenhydramine HCl (Diphenhydramine Hcl 25 Mg Capsule) 25 mg PO BEDTIME PRN PRN Reason: Insomnia Last Admin: 12/25/23 20:28 Dose: 25 mg Fluticasone Propionate (Fluticasone Propionate Nasal 16 Gm [place]) 2 spray NOSTRIL-B DAILY [facility] Last Admin: 12/26/23 09:20 Dose: Not Given Hydroxyzine HCl (Hydroxyzine Hcl 25 Mg Tablet) 25 mg PO Q6H PRN PRN Reason: Anxiety Levothyroxine Sodium (Levothyroxine Sodium 50 Mcg Tablet) 50 mcg PO DAILY@0600 [facility] Last Admin: 12/26/23 05:38 Dose: 50 mcg Loratadine (Loratadine 10 Mg Tablet) 10 mg PO DAILY [facility] Last Admin: 12/26/23 09:19 Dose: Not Given Magnesium Hydroxide (Milk Of Magnesia 30 Ml Oral.Susp) 30 ml PO DAILY PRN PRN Reason: Constipation Naproxen (Naproxen 250 Mg Tablet) 250 mg PO BID [facility] Last Admin: 12/26/23 09:19 Dose: Not Given Nicotine (Nicotine 21 Mg Patch.Td24) 21 mg TRANSDERMA DAILY PRN PRN Reason: smoking cessation Nicotine Polacrilex (Nicotine Polacrilex 2 Mg Gum) 4 mg BUCCAL Q2H PRN PRN Reason: Nicotine Cravings Quetiapine Fumarate (Quetiapine Fumarate 400 Mg Tablet) 400 mg PO BID [facility] Last Admin: 12/26/23 09:16 Dose: 400 mg Quetiapine Fumarate (Quetiapine Fumarate 100 Mg Tablet) 100 mg PO BID PRN PRN Reason: psychosis, jenna Allergies Allergies Allergy/AdvReac Type Severity Reaction Status Date / Time haloperidol [From HALDOL] Allergy Intermediate LOWERS Verified 06/10/23 12:47 HEART RATE trazodone AdvReac Intermediate Hives Verified 06/10/23 12:47 Assessment & Plan Assessment & Plan (1) PTSD (post-traumatic stress disorder): Status: Acute Code(s): F43.10 - Post-traumatic stress disorder, unspecified (2) Bipolar disorder: Status: Acute Code(s): F31.9 - Bipolar disorder, unspecified Plan 58 yo female, history of bipolar disorder, psychosis, PTSD presents with report of being off meds for ~6 weeks with sx of decompensation including jenna, delusions, AH, HI to neighbors, SIBS. Plan: Collateral contact Re-establish regime Encourage milieu participation Encourage treatment compliance Section XIIB to 12/29. No diagnostics prior to admit. Re-order when she is less symptomatic. 2/2/24- Discontine Olanzapine Seroquel 100 mg bid prn psychosis, agitation, jenna Section 12B to 12/29/23. 2/3: pt declining med changes ie seroquel increase Reason for continued inpatient stay Substantial Risk for: inability to function Time Spent With Patient Time: Total time managing care of this patient today ____ minutes.
[2023-12-26] MEDS: Lidocaine 4 % Patch ADH..PATCH 1 PATCH TRANSDERMA (18:08)
[2023-12-26 19:00] VITALS: BP 130/81; PULSE 101; RESP 18; TEMP 36.2; O2SAT 100
[2023-12-26] MEDS: NaPROXEN 250 MG TABLET PO (20:52)
[2023-12-26] MEDS: diphenhydrAMINE HCL 25 MG CAPSULE PO (22:10)
[2023-12-27 08:30] VITALS: BP 119/68; PULSE 69; RESP 18; TEMP 36.2; O2SAT 99
--- NOTE | 2023-12-27 12:12 | P.PNPSI_ITS ---
Subjective Subjective Date of Service: 12/27/23 Reason For Visit: Jenna Interim History: Met with patient. Discussed with Nursing. Has been singing in the hallways at times. Sleep broken last night. Pleasant. Reports today she is doing fine and did not need/want to talk. Refusing some medications. Medication Compliance: Intermittent Side effects from medications: No Attending Groups: Intermittent Review of Systems Acute medical concerns: No Review of Systems Review of Systems unremarkable Mental Status Exam Mental Status Exam Patient Appearance: Well Grooomed Patient Orientation: Person, Place, Time and Situation Level of Consciousness: Awake and Appropriate Patient Behavior: Appropriate Mood Description: Calm Affect Description: Expansive Patient Cognition Impaired: No Ability to Follow Directions: Fair Speech Pattern: Clear Hallucinations: None Delusions: Not Present Thought Process: Intact Judgement: Fair Diagnostics Vital Signs (24Hr): Vital Signs - 24 hr 12/26/23 19:00 12/27/23 08:30 Temperature 97.1 F 97.1 F Pulse Rate 101 H 69 Respiratory Rate 18 18 Blood Pressure 130/81 119/68 Pulse Oximetry 100 99 Oxygen Delivery Method Room Air Room Air BMI result Body Mass Index 21.7 Medications Medications Current Medications Acetaminophen (Acetaminophen 325 Mg Tablet) 650 mg PO Q6H PRN PRN Reason: Headache/Pain Mild Scale (1-3) Last Admin: 12/25/23 13:38 Dose: 650 mg Al Hydroxide/Mg Hydroxide (Magnesium Hydrox/Alum Hydrox 30 Ml Oral.Susp) 30 ml PO Q6H PRN PRN Reason: Heartburn/Nausea Amlodipine Besylate (Amlodipine Besylate 10 Mg Tablet) 10 mg PO DAILY [facility]; Protocol Last Admin: 12/27/23 10:14 Dose: Not Given Clonazepam (Clonazepam 1 Mg Tablet) 1 mg PO TID [facility] Last Admin: 12/27/23 10:15 Dose: Not Given Diphenhydramine HCl (Diphenhydramine Hcl 25 Mg Capsule) 25 mg PO BEDTIME PRN PRN Reason: Insomnia Last Admin: 12/26/23 22:10 Dose: 25 mg Fluticasone Propionate (Fluticasone Propionate Nasal 16 Gm [place]) 2 spray NOSTRIL-B DAILY [facility] Last Admin: 12/27/23 10:15 Dose: Not Given Hydroxyzine HCl (Hydroxyzine Hcl 25 Mg Tablet) 25 mg PO Q6H PRN PRN Reason: Anxiety Levothyroxine Sodium (Levothyroxine Sodium 50 Mcg Tablet) 50 mcg PO DAILY@0600 [facility] Last Admin: 12/27/23 10:14 Dose: Not Given Lidocaine (Lidocaine 4 % Patch Adh..Patch) 1 patch TRANSDERMA DAILY [facility]; Protocol Last Admin: 12/27/23 10:15 Dose: Not Given Loratadine (Loratadine 10 Mg Tablet) 10 mg PO DAILY [facility] Last Admin: 12/27/23 10:15 Dose: Not Given Magnesium Hydroxide (Milk Of Magnesia 30 Ml Oral.Susp) 30 ml PO DAILY PRN PRN Reason: Constipation Naproxen (Naproxen 250 Mg Tablet) 250 mg PO BID [facility] Last Admin: 12/27/23 10:15 Dose: Not Given Nicotine (Nicotine 21 Mg Patch.Td24) 21 mg TRANSDERMA DAILY PRN PRN Reason: smoking cessation Nicotine Polacrilex (Nicotine Polacrilex 2 Mg Gum) 4 mg BUCCAL Q2H PRN PRN Reason: Nicotine Cravings Quetiapine Fumarate (Quetiapine Fumarate 400 Mg Tablet) 400 mg PO BID [facility] Last Admin: 12/27/23 10:15 Dose: Not Given Quetiapine Fumarate (Quetiapine Fumarate 100 Mg Tablet) 100 mg PO BID PRN PRN Reason: psychosis, jenna Allergies Allergies Allergy/AdvReac Type Severity Reaction Status Date / Time haloperidol [From HALDOL] Allergy Intermediate LOWERS Verified 06/10/23 12:47 HEART RATE trazodone AdvReac Intermediate Hives Verified 06/10/23 12:47 Assessment & Plan Assessment & Plan (1) PTSD (post-traumatic stress disorder): Status: Acute Code(s): F43.10 - Post-traumatic stress disorder, unspecified (2) Bipolar disorder: Status: Acute Code(s): F31.9 - Bipolar disorder, unspecified Plan 58 yo female, history of bipolar disorder, psychosis, PTSD presents with report of being off meds for ~6 weeks with sx of decompensation including jenna, delusions, AH, HI to neighbors, SIBS. Plan: Collateral contact Re-establish regime Encourage milieu participation Encourage treatment compliance Section XIIB to 12/29. No diagnostics prior to admit. Re-order when she is less symptomatic. 12/25/23- Discontine Olanzapine Seroquel 100 mg bid prn psychosis, agitation, jenna Section 12B to 12/29/23. 12/26: pt declining med changes ie seroquel increase 12/27: no changes Reason for continued inpatient stay Substantial Risk for: rapid decompensation Time Spent With Patient Time: Total time managing care of this patient today ____ minutes.
[2023-12-27] MEDS: NaPROXEN 250 MG TABLET PO ×2 (12:24→21:42)
[2023-12-27] MEDS: Lidocaine 4 % Patch ADH..PATCH 1 PATCH TRANSDERMA (12:24)
[2023-12-27] MEDS: clonazePAM 1 MG TABLET PO ×2 (14:15→21:42)
[2023-12-27] MEDS: Acetaminophen 325 MG TABLET 650 MG PO (16:25)
[2023-12-27 18:00] VITALS: BP 119/79; PULSE 84; RESP 18; TEMP 36.2; O2SAT 97
[2023-12-27] MEDS: QUEtiapine Fumarate 400 MG TABLET PO (21:42)
[2023-12-27] MEDS: diphenhydrAMINE HCL 25 MG CAPSULE PO (21:42)
[2023-12-28] MEDS: Levothyroxine Sodium 50 MCG TABLET PO (06:37)
[2023-12-28 07:50] VITALS: BP 132/74; PULSE 76; RESP 15; TEMP 36.2; O2SAT 98
[2023-12-28] MEDS: clonazePAM 1 MG TABLET PO ×3 (09:48→21:55)
--- NOTE | 2023-12-28 15:05 | P.PNPSI_ITS ---
Subjective Subjective Date of Service: 12/28/23 Reason For Visit: Jenna Subjective Notes: Section 12B Healthcare Proxy: No Guardianship: No Medical Problems Affecting Mental Status: No Interim History: Pt seen, reviewed in team. Pt appears improved when meeting with team today. She continues with lability, and expressed concern regarding her perception of what is occurring at her residence. She outlines a plan to meet with the regional rehabilitation director of the complex as the landlord has not provided satisfactory solutions for the issues she has presented. She reports she will continue to request a move to another complex. She denies SI,HI, AH,VH. She is able to differentiate her thoughts and intent from wanting to harm someone from wanting to be able to protect herself and her property when she is in her home should someone break into her home. She has some poor social boundaries with peers. Team reports she is targeting of peers, making inappropriate comments about them in Turkish, a baseline behavior for her. Section 12B will on 12/29. Pt declines needing or wanting further treatment. Declines offer to sign herself in. Medication Compliance: Intermittent Side effects from medications: No Attending Groups: No Review of Systems Acute medical concerns: No Medical Review of Systems: unchanged Review of Systems Review of Systems Yes all other systems are reviewed and are negative (denies) Mental Status Exam Mental Status Exam Patient Appearance: Appropriate Patient Orientation: Person, Place, Time and Situation Level of Consciousness: Alert Patient Behavior: Talkative, Cooperative and Good Eye Contact Mood Description: Labile Affect Description: Labile Patient Cognition Impaired: No Ability to Follow Directions: Good Speech Pattern: Spontaneous Speech, Rapid and Loud Memory Description: Intact Hallucinations: None Delusions: Not Present Thought Process: Goal Oriented Thought Content: positive for Circumstantial and positive for Goal Oriented Abnormal Motor Activity Signs and Symptoms: Restlessness Judgement: Good Diagnostics Vital Signs (24Hr): Vital Signs - 24 hr 12/27/23 18:00 12/28/23 07:50 Temperature 97.1 F 97.2 F Pulse Rate 84 76 Respiratory Rate 18 15 Blood Pressure 119/79 132/74 Pulse Oximetry 97 98 Oxygen Delivery Method Room Air Room Air BMI result Body Mass Index 21.7 Medications Medications Current Medications Acetaminophen (Acetaminophen 325 Mg Tablet) 650 mg PO Q6H PRN PRN Reason: Headache/Pain Mild Scale (1-3) Last Admin: 12/27/23 16:25 Dose: 650 mg Al Hydroxide/Mg Hydroxide (Magnesium Hydrox/Alum Hydrox 30 Ml Oral.Susp) 30 ml PO Q6H PRN PRN Reason: Heartburn/Nausea Amlodipine Besylate (Amlodipine Besylate 10 Mg Tablet) 10 mg PO DAILY [facility]; Protocol Last Admin: 12/28/23 09:48 Dose: Not Given Clonazepam (Clonazepam 1 Mg Tablet) 1 mg PO TID [facility] Last Admin: 12/28/23 09:48 Dose: 1 mg Diphenhydramine HCl (Diphenhydramine Hcl 25 Mg Capsule) 25 mg PO BEDTIME PRN PRN Reason: Insomnia Last Admin: 12/27/23 21:42 Dose: 25 mg Fluticasone Propionate (Fluticasone Propionate Nasal 16 Gm [place]) 2 spray NOSTRIL-B DAILY [facility] Last Admin: 12/28/23 09:48 Dose: Not Given Hydroxyzine HCl (Hydroxyzine Hcl 25 Mg Tablet) 25 mg PO Q6H PRN PRN Reason: Anxiety Levothyroxine Sodium (Levothyroxine Sodium 50 Mcg Tablet) 50 mcg PO DAILY@0600 [facility] Last Admin: 12/28/23 06:37 Dose: 50 mcg Lidocaine (Lidocaine 4 % Patch Adh..Patch) 1 patch TRANSDERMA DAILY [facility]; Protocol Last Admin: 12/28/23 09:48 Dose: Not Given Loratadine (Loratadine 10 Mg Tablet) 10 mg PO DAILY [facility] Last Admin: 12/28/23 09:48 Dose: Not Given Magnesium Hydroxide (Milk Of Magnesia 30 Ml Oral.Susp) 30 ml PO DAILY PRN PRN Reason: Constipation Naproxen (Naproxen 250 Mg Tablet) 250 mg PO BID [facility] Last Admin: 12/28/23 09:49 Dose: Not Given Nicotine (Nicotine 21 Mg Patch.Td24) 21 mg TRANSDERMA DAILY PRN PRN Reason: smoking cessation Nicotine Polacrilex (Nicotine Polacrilex 2 Mg Gum) 4 mg BUCCAL Q2H PRN PRN Reason: Nicotine Cravings Quetiapine Fumarate (Quetiapine Fumarate 400 Mg Tablet) 400 mg PO BID [facility] Last Admin: 12/28/23 09:49 Dose: Not Given Quetiapine Fumarate (Quetiapine Fumarate 100 Mg Tablet) 100 mg PO BID PRN PRN Reason: psychosis, jenna Allergies Allergies Allergy/AdvReac Type Severity Reaction Status Date / Time haloperidol [From HALDOL] Allergy Intermediate LOWERS Verified 06/10/23 12:47 HEART RATE trazodone AdvReac Intermediate Hives Verified 06/10/23 12:47 Assessment & Plan Assessment & Plan (1) PTSD (post-traumatic stress disorder): Status: Acute Code(s): F43.10 - Post-traumatic stress disorder, unspecified (2) Bipolar disorder: Status: Acute Code(s): F31.9 - Bipolar disorder, unspecified Plan 58 yo female, history of bipolar disorder, psychosis, PTSD presents with report of being off meds for ~6 weeks with sx of decompensation including jenna, delusions, AH, HI to neighbors, SIBS. Plan: Collateral contact Re-establish regime Encourage milieu participation Encourage treatment compliance Section XIIB to 12/29. No diagnostics prior to admit. Re-order when she is less symptomatic. 12/25/23- Discontine Olanzapine Seroquel 100 mg bid prn psychosis, agitation, jenna Section 12B to 12/29/23. 12/26: pt declining med changes ie seroquel increase 12/27: no changes 12/28/23: Discharge 12/29/23. Patient educated on: medication risk/benefits and therapeutic strategies Informed Consent: understands Reason for continued inpatient stay Substantial Risk for: rapid decompensation Time Spent With Patient Time: Total time managing care of this patient today ____ minutes.
[2023-12-28 20:46] VITALS: BP 138/85; PULSE 91; RESP 20; TEMP 36.2; O2SAT 98
[2023-12-28] MEDS: NaPROXEN 250 MG TABLET PO (21:55)
[2023-12-28] MEDS: Mineral Oil/Petrolatum,White 106 GM Tube 1 APPL TOPICAL (21:56)
[2023-12-28] MEDS: QUEtiapine Fumarate 400 MG TABLET PO (21:57)
[2023-12-28] MEDS: diphenhydrAMINE HCL 25 MG CAPSULE PO (21:57)
[2023-12-29] MEDS: Levothyroxine Sodium 50 MCG TABLET PO (06:15)
[2023-12-29 07:47] VITALS: BP 114/62; PULSE 81; RESP 18; TEMP 36; O2SAT 99
--- NOTE | 2023-12-29 14:22 | PM.PSYDC ---
DS: Providers Provider Date of Service: 12/29/23 Date of admission: 12/23/23 23:38 Date of discharge: 12/29/23 Primary care physician: [facility] Admitting clinician: Mariah Dhaliwal Attending physician on admission: Ruddy Beasley Attending physician on discharge: Ruddy Beasley Discharging clinician: Mariah Dhaliwal DS: Diagnosis Discharge Diagnosis (1) PTSD (post-traumatic stress disorder): Status: Acute (2) Bipolar disorder: Status: Acute DS: Medications Discharge Medications Home Medications: Home Medications Medication Instructions Recorded Confirmed amlodipine 10 mg tablet 10 mg PO QAM 12/24/23 12/24/23 cetirizine 10 mg tablet (Zyrtec) 10 mg PO QAM 12/24/23 12/24/23 diphenhydramine HCl 25 mg tablet 25 mg PO BEDTIME PRN insomnia 12/24/23 12/24/23 fluticasone propionate 50 2 spray intranasal QAM 12/24/23 12/24/23 mcg/actuation nasal spray,suspension meloxicam 7.5 mg tablet 7.5 mg PO QAM 12/24/23 12/24/23 Previous Rx's Medication Instructions Recorded levothyroxine 50 mcg tablet 50 mcg PO QAM 30 days #30 tabs 08/17/23 clonazepam 1 mg tablet 1 mg PO TID #21 tabs 12/29/23 quetiapine 400 mg tablet 400 mg PO BEDTIME #14 tabs 12/29/23 quetiapine 400 mg tablet 400 mg PO DAILY #14 tabs 12/29/23 white petrolatum-mineral oil 1 appl topical BID #1 units 12/29/23 topical cream (Dermacerin topical cream) Mental Status Exam Mental Status Exam Patient Appearance: Appropriate Patient Orientation: Person, Place, Time and Situation Level of Consciousness: Alert Patient Behavior: Talkative, Cooperative and Good Eye Contact Mood Description: Labile Affect Description: Labile Patient Cognition Impaired: No Ability to Follow Directions: Good Speech Pattern: Spontaneous Speech, Rapid and Loud Memory Description: Intact Hallucinations: None Delusions: Not Present Thought Process: Goal Oriented Thought Content: positive for Circumstantial and positive for Goal Oriented Abnormal Motor Activity Signs and Symptoms: Restlessness Judgement: Good Data Data Completed and Pending Completed studies during hospitalization [Text1]: 12/23/23 19:08 COVID-19 ([facility]) Negative COVID-19 Clin Com See Note DS: Summary Hospital Course Hospital Course: Admission to adult psychiatry on a Section 12B for exacerbation of bipolar disorder with maddison, delusions, perceptual alterations and agitation. Pt reportedly off meds for ~6 weeks. Regime was evaluated and re-established. Pt's symptoms improved and she was discharged to return to [facility] for out patient follow up. Status at Discharge Functional status at discharge: independent ambulation Overall status at discharge: patient is progressing back to baseline Time Spent with Patient Time attestation: Total time managing care of this patient today ____ minutes. Time spent: Less than 30 minutes Discharge Plan Discharge Anticipated Discharge Date/Time: 12/29/23 12:00 Patient Disposition: Home, Self-Care Discharge Diagnosis: PTSD Bipolar Disorder Referrals: Hospital D/C Follow-up: Yasmine ([facility]) [Other] - 12/31/23 10:30 am (La pritesh es presencial en la oficina Yasmine le informar? cu?ndo es patton pr?xima pritesh con psiquiatr?a.) Center,[facility] [Primary Care Provider] - (Per your request, your records have not been forwarded to [facility]. If you would like us to send records, please call the hospital and ask for Medical Records.) Discharge Medications: New Dermacerin Cream 1 appl topical BID Qty: 1 0RF Protocol: Apply to: Apply to: feet Continued levothyroxine 50 mcg tablet 50 mcg PO QAM 30 Days Qty: 30 0RF cetirizine [Zyrtec] 10 mg tablet 10 mg PO QAM meloxicam 7.5 mg tablet 7.5 mg PO QAM amlodipine 10 mg tablet 10 mg PO QAM diphenhydramine HCl 25 mg tablet 25 mg PO BEDTIME PRN (Reason: insomnia) fluticasone propionate 50 mcg/actuation spray,suspension 2 spray intranasal QAM clonazepam 1 mg tablet 1 mg PO TID Qty: 21 0RF quetiapine 400 mg tablet 400 mg PO BEDTIME Qty: 14 0RF quetiapine 400 mg Tablet 400 mg PO DAILY Qty: 14 0RF Discharge Orders: Discharge Order (Routine); Ordered 12/29/23 Ordered By: Mariah M James-Wonkka Diet: Advance to usual diet Activity on Discharge: As tolerated Stand Alone Forms: Patient Portal Discharge page, Community Support Care Plan Goals: Mood and Behavioral Stabilization Health Concerns: Mood and Behavioral Stabilization Plan of Treatment: Attend scheduled appointments Take medications as directed Call/Return as needed Assessment: Discharge due to expiration of Section 12B Discharge Date/Time: 12/29/23 11:24
== END 2023-12-29 11:24 | disposition home or self-care (01) | DRG 753 ==
LOC: HO.ED 23:37 → HO.PM5 23:45
PROVIDERS: Admitting Provider Psychiatry & Neurology Psychiatry; Emergency Provider Emergency Medicine; Visit Provider Clinical Nurse Specialist Psychiatric/Mental Health, Adult
DX: F31.9 Bipolar disorder, unspecified (principal); F43.12 Post-traumatic stress disorder, chronic; Z20.822 Contact with and (suspected) exposure to COVID-19; Z79.51 Long term (current) use of inhaled steroids; Z79.890 Hormone replacement therapy; Z79.899 Other long term (current) drug therapy
CPT/HCPCS: 87635; 93005; 99285; J1200; J2359; J3486

== ENCOUNTER 2023-12-23 23:38 | Outpatient (BNV) | payer MEDICAID, SELFPAY | END 2023-12-24 20:02 | PROVIDERS: Admitting Provider Psychiatry & Neurology Psychiatry; Emergency Provider Emergency Medicine; Visit Provider Internal Medicine Cardiovascular Disease | DX: R94.31 Abnormal electrocardiogram [ECG] [EKG] (principal) | CPT/HCPCS: 93010 ==

== ENCOUNTER → 2023-12-23 23:38 | Outpatient (BNV) | payer OTHER, SELFPAY | PROVIDERS: Admitting Provider Psychiatry & Neurology Psychiatry; Emergency Provider Emergency Medicine; Visit Provider Clinical Nurse Specialist Psychiatric/Mental Health, Adult | DX: F31.2 Bipolar disorder, current episode manic severe with psychotic features (principal); F43.11 Post-traumatic stress disorder, acute | CPT/HCPCS: 90792; 99231; 99232 ==

== ENCOUNTER 2024-01-29 14:06 | Inpatient (IN) | payer OTHER, SELFPAY ==
--- NOTE | 2024-01-29 | ECG_ITS ---
Test Reason : MED CLEAR Blood Pressure : / mmHG Vent. Rate : 069 BPM Atrial Rate : 069 BPM P-R Int : 126 ms QRS Dur : 088 ms QT Int : 400 ms P-R-T Axes : 040 046 088 degrees QTc Int : 428 ms Normal sinus rhythm Cannot rule out inferior infarct Abnormal ECG When compared to the previous EKG of No significant changes seen Referred By: Pedrito Stacy Electronically Signed By:Gautam Chambers
--- NOTE | ~2024-01-29 | CT_ITS ---
EXAMINATION: CT ABDOMEN AND PELVIS WITHOUT CONTRAST CLINICAL INFORMATION: Left upper quadrant/flank pain COMPARISON: Previous abdominal ultrasound January 2020 TECHNIQUE: Multidetector volumetric imaging was performed from the superior aspect of the liver through the pubic symphysis. Sagittal and coronal reformatted images were obtained on the technologist's workstation. This CT examination was performed using dose optimization techniques as appropriate, variously including the following: *Automated exposure control *Adjustment of mA and/or kV according to patient size (this includes techniques or standardized protocols for targeted exams where dose is matched to indication/reason for exam; i.e. extremities or head) *Use of iterative reconstruction technique DLP: 513 mGy-cm FINDINGS: LUNG BASES: The visualized lung bases are unremarkable. LIVER, GALLBLADDER, AND BILIARY TREE: The liver is normal in size, shape, and attenuation. No focal hepatic lesion or biliary ductal dilatation is present. The gallbladder is not seen. PANCREAS: Unremarkable. SPLEEN: Unremarkable. ADRENAL GLANDS: Unremarkable. KIDNEYS AND URETERS: The kidneys are normal in size, shape, and attenuation. No hydronephrosis, hydroureter, or calculi seen. No perinephric stranding. BLADDER: Not optimally distended. GASTROINTESTINAL TRACT: Constipation. The small and large bowel are otherwise unremarkable. The appendix is unremarkable. ABDOMINAL WALL: Small umbilical hernia containing fat. Multiple linear radiopaque foreign bodies in the subcutaneous fat of the anterior abdominal wall, question representing broken needles. LYMPH NODES: Small retroperitoneal lymph nodes. No enlarged lymph nodes. VASCULAR: Unremarkable. PELVIC VISCERA: Unremarkable. OSSEOUS STRUCTURES: Unremarkable. CT/CT abdomen pelvis wo IV con IMPRESSION: Constipation. Multiple linear radiopaque foreign bodies in the subcutaneous fat of the anterior abdominal wall, question representing broken needles. Fleischner guidelines were followed.
--- NOTE | ~2024-01-29 | XR_ITS ---
EXAMINATION: XR SHOULDER, RIGHT CLINICAL INFORMATION: Reason for Exam Right shoulder pain COMPARISON: Shoulder radiographs 12/10/2022 TECHNIQUE: Four views of the shoulder. FINDINGS: No acute fracture or dislocation. Joint spaces are maintained. 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 Soft tissues are unremarkable. XR/XR shoulder RT min 2V IMPRESSION: 1. No acute osseous abnormality. 2. 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
[2024-01-29 14:29] VITALS: BP 143/91; PULSE 85; RESP 18; TEMP 36.2; O2SAT 96; BMI 32.5
--- NOTE | 2024-01-29 14:34 | PC.NURSE ---
pt BIBA from home where she was found to yelling about killing people and running around with a knife. [facility] and [facility] on scene section 12 filled out and pt transported to [facility]. pt tangential, pressured speech upon arrival to ED POD. pt irritable initially not wanting to change her clothes into johnnies until she had been medicated, eventually she changed over. pt continually talking with pressured speech about killing a whore who keeps coming into her home and reports that she will shoot this woman or electrocute her if she did it to her siblings she can do it to anyone else . pts thought process is difficult to follow, when asked pointed questions pt becomes irritated and asked for this RN to stop asking her questions. pt making gestures of stabbing someone and of shooting them.
[2024-01-29 14:53] LABS: Appearance Urine Clear; Color Urine Yellow; Glucose Urine UA Negative (Negative); Leukocyte Esterase Urine Trace (Negative); Nitrite Urine Negative (Negative); PH 5.5 (5.0-9.0); UMIC TRIGGER UACC YES; Urine Blood Negative (Negative); Urine Ketones Negative (Negative); Urine Protein Negative (Neg-Trace)
[2024-01-29 14:55] LABS: Bacteria Urine None Seen (None Seen); Hyaline Casts Urine 0-2 /LPF (0-2); RBC Urine 0-2 /HPF (0-2); Squamous Epithelial Cell Urine 0-2 /HPF (0-2); WBC Urine 0-5 /HPF (0-5)
[2024-01-29 14:59] LABS: Amphetamine Screen Urine Not Detected (Not Detect); Barbiturates, Urine Not Detected (Not Detect); Benzodiazepines Screen Urine Not Detected (Not Detect); Cannabinoid Screen Urine Not Detected (Not Detect); Cocaine Screen Urine POSITIVE (Not Detect); Fentanyl, urine Not Detected (Not Detect); Opiate Screen Urine Not Detected (Not Detect); Phencyclidine Screen Urine Not Detected (Not Detect)
--- NOTE | 2024-01-29 15:13 | MHC.CARE ---
CARE Team spoke with [facility] Co-response Pt is a ADULT IPLOC bedsearch.
--- NOTE | 2024-01-29 15:15 | MHC.EDTECH ---
pt refusing labs at this time
--- NOTE | 2024-01-29 16:02 | ED_ITS ---
HPI - Psych General Chief Complaint: Psychiatric Symptoms Stated Complaint: SECTION 12 SI HI Time Seen by Provider: 01/29/24 14:09 Source: patient, EMS and police Mode of arrival: ambulatory Limitations: no limitations History of Present Illness HPI Narrative: 58-year-old female history of bipolar, PTSD, borderline personality disorder, hypothyroidism, presenting to the emergency department with police and EMS where [employer] was on scene after patient was yelling about killing someone and running around with a knife. When I went to go obtain history from patient she is refusing. She standing in her room pacing around screaming she wants to stab somebody in the eye. Unable to provide me with history. She is homicidal toward somebody else but will not tell me who. Not suicidal. Will not answer any of my questions or review of systems. Related Data Home Medications Medication Instructions Recorded Confirmed amlodipine 10 mg tablet 10 mg PO QAM 12/24/23 12/24/23 cetirizine 10 mg tablet (Zyrtec) 10 mg PO QAM 12/24/23 12/24/23 diphenhydramine HCl 25 mg tablet 25 mg PO BEDTIME PRN insomnia 12/24/23 01/29/24 fluticasone propionate 50 2 spray intranasal QAM 12/24/23 01/29/24 mcg/actuation nasal spray,suspension meloxicam 7.5 mg tablet 7.5 mg PO QAM 12/24/23 12/24/23 Previous Rx's Medication Instructions Recorded levothyroxine 50 mcg tablet 50 mcg PO QAM 30 days #30 tabs 08/17/23 clonazepam 1 mg tablet 1 mg PO TID #21 tabs 12/29/23 quetiapine 400 mg tablet 400 mg PO BEDTIME #14 tabs 12/29/23 quetiapine 400 mg tablet 400 mg PO DAILY #14 tabs 12/29/23 white petrolatum-mineral oil 1 appl topical BID #1 units 12/29/23 topical cream (Dermacerin topical cream) Allergies Allergy/AdvReac Type Severity Reaction Status Date / Time haloperidol [From HALDOL] Allergy Intermediate LOWERS Verified 06/10/23 12:47 HEART RATE trazodone AdvReac Intermediate Hives Verified 06/10/23 12:47 Review of Systems 2 Review of Systems: Yes Unobtainable due to mental status PMFSH Past Medical History Attestation statement: The following information was validated with the patient. Source: old records reviewed and nursing notes reviewed Medical History Bipolar 1 disorder Borderline personality disorder Depression Chronic post-traumatic stress disorder (PTSD) Hypothyroidism Social History Social History Household Members: None Housing: Apartment Do you presently have visiting nurse or other home services: No Unable to assess alcohol history related to: Unknown Alcohol intake: unknown Patient Tobacco Use Status: Tobacco use Unknown Use of substances other than those prescribed or required for medical reasons: Refusing to respond Substance Use Type: Crack/Cocaine Advance Directives: No Advance Directives Information Provided: No Patient : No service: No Sexual orientation: Did not discuss Physical Exam 2 Vital Signs: Vital Signs: Last Vital Signs Temp 97.1 F 01/29/24 14:29 Pulse 85 01/29/24 14:29 Resp 18 01/29/24 14:29 BP 143/91 H 01/29/24 14:29 Pulse Ox 96 01/29/24 14:29 O2 Del Method Room Air 01/29/24 14:29 BMI result Body Mass Index 32.5 Stable vital signs. Patient refusing physical examination however appears nontoxic, pacing around the room. Respiratory rate of 14. Appears to be in no acute respiratory distress. Ambulating with steady gait normal coordination. Course Reevaluation(s) Reevaluation #1: Patient refusing just about anything. Patient will likely be admitted to Time: 16:08 Reevaluation #2: January 29, 2024, 4:45 p.m. This provider notified by nursing staff that the patient was reporting itching. Patient apparently has this occur on occasion. She takes Benadryl for similar as well as to help with sleep. There is no airway compromise. There is no visible rash. Trial of hydroxyzine. January 29, 2024, 7:00 p.m. patient resting comfortably at this time. Symptoms improved. January 30, 2024, 1:00 a.m. patient resting comfortably at this time. January 30, 2024, 1:40 a.m. patient signed out in stable condition. Medications Administered Generic Name Dose Route Start Last Admin Trade Name Freq PRN Reason Stop Dose Admin Acetaminophen 650 mg 01/29/24 19:34 01/29/24 20:55 Acetaminophen 325 Mg Tablet PO 650 mg Q6H PRN Administration Headache/Pain Mild Scale (1-3) Clonazepam 1 mg 01/29/24 16:15 01/29/24 20:56 Clonazepam 1 Mg Tablet PO 1 mg TID ALEKSANDRA Administration Diphenhydramine HCl 25 mg 01/29/24 23:09 01/29/24 23:24 Diphenhydramine Hcl 25 Mg Capsule PO 25 mg BEDTIME PRN Administration insomnia Lidocaine 1 patch 01/29/24 23:21 01/29/24 23:37 Lidocaine 4 % Patch Adh..Patch TRANSDERMA 1 patch DAILY PRN Administration right arm pain Protocol Quetiapine Fumarate 600 mg 01/29/24 23:15 01/29/24 23:24 Quetiapine Fumarate 300 Mg Tablet PO 600 mg BID ALEKSANDRA Administration Discontinued Medications Generic Name Dose Route Start Last Admin Trade Name Dewayne PRN Reason Stop Dose Admin Clonazepam 1 mg 01/29/24 23:08 01/29/24 23:24 Clonazepam 1 Mg Tablet PO 01/29/24 23:09 1 mg ONCE ONE Administration Hydroxyzine HCl 25 mg 01/29/24 16:47 01/29/24 16:51 Hydroxyzine Hcl 25 Mg Tablet PO 01/29/24 16:48 25 mg ONCE ONE Administration Medical Decision Making Medical Decision Making [facility] Narrative: 58-year-old female presents with homicidal ideation. Physical examination patient agitated, pacing around, refusing to participate with physical exam. History and physical exam concerning for acute psychosis and maddison. Unlikely metabolic derangements Plan at this time medical clearance evaluation by behavioral health team. Differential Diagnosis Differential Diagnoses: The differential diagnosis associated with the presentation includes History and physical exam concerning for acute psychosis and maddison. Unlikely metabolic derangements Admission/Observation Consideration of admission/observation: Escalation of care including admission/observation considered Lab Data [facility] Lab Attestation statement: I reviewed the patient's lab results. 01/29/24 19:23 01/29/24 19:24 Labs: Lab Results 01/29/24 01/29/24 01/29/24 Range/Units 14:41 16:07 19:23 WBC 6.7 (4.8-10.8) X10*3/uL RBC 4.34 (4.20-5.50) X10*6/uL Hgb 12.8 (12.0-16.0) g/dl Hct 39.1 (37.0-47.0) % MCV 90.1 (80.0-98.0) fL MCH 29.5 (27.0-33.0) pg MCHC 32.7 (31.0-35.0) g/dl RDW 12.7 (11.0-16.0) % Plt Count 222 (160-400) X10*3/uL MPV 10.5 (9.4-12.3) fL Immature Gran % (Auto) 0.1 (0.0-0.4) % Neut % (Auto) 44.2 L (45-73) % Lymph % (Auto) 45.5 H (20-40) % Hart % (Auto) 8.6 (2-11) % Eos % (Auto) 1.3 (0-4) % Baso % (Auto) 0.3 (0-2) % Lymph # (Auto) 3.1 (1.2-4.9) X10*3/uL Hart # (Auto) 0.6 (0.1-1.2) X10*3/uL Eos # (Auto) 0.1 (0.0-0.4) X10*3/uL Baso # (Auto) 0.0 (0.0-0.2) X10*3/uL Abs Immat Gran (auto) 0.01 (0.00-0.03) X10*3/uL Absolute Neuts (auto) 3.0 (2.0-8.3) x10*3/uL Absolute Nucleated RBC 0.000 (0.0-0.012) X10*3/uL Nucleated RBC % (auto) 0.0 (0.0-0.2) /100WBC Sodium (135-145) mmol/L Potassium (3.3-5.1) mmol/L Chloride (96-108) mmol/L Carbon Dioxide (22-29) mmol/L Anion Gap (12-20) BUN (9-16) mg/dL Creatinine (0.5-1.4) mg/dL Estim Creat Clear Calc Estimated GFR Random Glucose (60-115) mg/dL Calcium (8.4-10.2) mg/dL Magnesium (1.6-2.6) mg/dL Total Bilirubin (0.0-1.0) mg/dL AST (5-31) U/L ALT (0-31) U/L Alkaline Phosphatase (39-117) U/L Troponin I High Sens (<3.5-17.0) ng/L Total Protein (6.5-8.0) g/dL Albumin (3.5-5.0) g/dL Urine Color Yellow Urine Appearance Clear Urine pH 5.5 (5.0-9.0) Ur Specific Henderson 1.010 (1.005-1.025) Urine Protein Negative (Neg-Trace) mg/dL Urine Glucose (UA) Negative (Negative) mg/dL Urine Ketones Negative (Negative) mg/dL Urine Blood Negative (Negative) Urine Nitrite Negative (Negative) Ur Leukocyte Esterase Trace H (Negative) Urine RBC 0-2 (0-2) /HPF Urine WBC 0-5 (0-5) /HPF Ur Squamous Epith Cells 0-2 (0-2) /HPF Urine Bacteria None Seen (None Seen) Hyaline Casts 0-2 (0-2) /LPF Urine Test NEGATIVE (NEGATIVE) Urine Opiates Screen Not Detected (Not Detect) Urine Fentanyl Screen Not Detected (Not Detect) Ur Barbiturates Screen Not Detected (Not Detect) Ur Phencyclidine Scrn Not Detected (Not Detect) Ur Amphetamines Screen Not Detected (Not Detect) U Benzodiazepines Scrn Not Detected (Not Detect) Urine Cocaine Screen POSITIVE H (Not Detect) U Marijuana (THC) Screen Not Detected (Not Detect) Ethyl Alcohol mg/dL COVID-19 ([facility]) Negative (Negative) COVID-19 Clin Com See Note 01/29/24 Range/Units 19:24 WBC (4.8-10.8) X10*3/uL RBC (4.20-5.50) X10*6/uL Hgb (12.0-16.0) g/dl Hct (37.0-47.0) % MCV (80.0-98.0) fL MCH (27.0-33.0) pg MCHC (31.0-35.0) g/dl RDW (11.0-16.0) % Plt Count (160-400) X10*3/uL MPV (9.4-12.3) fL Immature Gran % (Auto) (0.0-0.4) % Neut % (Auto) (45-73) % Lymph % (Auto) (20-40) % Hart % (Auto) (2-11) % Eos % (Auto) (0-4) % Baso % (Auto) (0-2) % Lymph # (Auto) (1.2-4.9) X10*3/uL Hart # (Auto) (0.1-1.2) X10*3/uL Eos # (Auto) (0.0-0.4) X10*3/uL Baso # (Auto) (0.0-0.2) X10*3/uL Abs Immat Gran (auto) (0.00-0.03) X10*3/uL Absolute Neuts (auto) (2.0-8.3) x10*3/uL Absolute Nucleated RBC (0.0-0.012) X10*3/uL Nucleated RBC % (auto) (0.0-0.2) /100WBC Sodium 140 (135-145) mmol/L Potassium 4.3 (3.3-5.1) mmol/L Chloride 105 (96-108) mmol/L Carbon Dioxide 26 (22-29) mmol/L Anion Gap 13 (12-20) BUN 10 (9-16) mg/dL Creatinine 0.64 (0.5-1.4) mg/dL Estim Creat Clear Calc 78.0 Estimated GFR > 60 Random Glucose 102 (60-115) mg/dL Calcium 9.8 (8.4-10.2) mg/dL Magnesium 1.8 (1.6-2.6) mg/dL Total Bilirubin 0.4 (0.0-1.0) mg/dL AST 34 H (5-31) U/L ALT 30 (0-31) U/L Alkaline Phosphatase 82 (39-117) U/L Troponin I High Sens < 2.7 (<3.5-17.0) ng/L Total Protein 9.2 H (6.5-8.0) g/dL Albumin 4.3 (3.5-5.0) g/dL Urine Color Urine Appearance Urine pH (5.0-9.0) Ur Specific Henderson (1.005-1.025) Urine Protein (Neg-Trace) mg/dL Urine Glucose (UA) (Negative) mg/dL Urine Ketones (Negative) mg/dL Urine Blood (Negative) Urine Nitrite (Negative) Ur Leukocyte Esterase (Negative) Urine RBC (0-2) /HPF Urine WBC (0-5) /HPF Ur Squamous Epith Cells (0-2) /HPF Urine Bacteria (None Seen) Hyaline Casts (0-2) /LPF Urine Test (NEGATIVE) Urine Opiates Screen (Not Detect) Urine Fentanyl Screen (Not Detect) Ur Barbiturates Screen (Not Detect) Ur Phencyclidine Scrn (Not Detect) Ur Amphetamines Screen (Not Detect) U Benzodiazepines Scrn (Not Detect) Urine Cocaine Screen (Not Detect) U Marijuana (THC) Screen (Not Detect) Ethyl Alcohol < 10 mg/dL COVID-19 ([facility]) (Negative) COVID-19 Clin Com Independent Historian Clinical information obtained from an independent historian. History obtained from or confirmed by: EMS and Other (Police) External Record Review External record reviewed: Inpatient record, Office record, Outpatient record, Prior outpatient labs, Prior outpatient radiology, Primary care record and Outside ED record Chronic Conditions Patient?s care impacted by: Other (Bipolar 1, PTSD, borderline personality, hypothyroid, PTSD) Social Determinants Patient?s care significantly limited by Social Determinants of Health including: Inadequate housing, Low income, Alcoholism and drug addiction in family, Problems related to primary support group, Unemployment, Problems related to employment and Other Social Determinant of Health Critical Care Time Critical Care Time Critical Care Time: No Discharge Plan Discharge Clinical Impression: Bipolar disorder, Acute psychosis Patient Disposition: Still a Patient Interventions: [place]-Suicide Risk Severity Scale Last Done: 01/29/24 14:31 Admission Worksheet (ED) Last Done: 01/29/24 22:34 Discharge Date/Time: 01/29/24 22:36
--- NOTE | 2024-01-29 16:07 | PC.NURSE ---
pt making threats to state game warden, accusing this state game warden of entering her home and stating she is going to kill him. able to de-escalate pt after allowing her to vent feelings. working on getting pts meds ordered. she reports that she only takes Conazepam 1mg TID and Quintiapine 400mg one daily. pt reports I dont take any of those blood pressure meds . pt not cooperative to complete remainder of med rec with state game warden and this RN, reports she only wants those two meds and nothing else
[2024-01-29] MEDS: clonazePAM 1 MG TABLET PO ×3 (16:14→23:24)
--- NOTE | 2024-01-29 16:15 | PC.NURSE ---
pt yelling at staff, reports she wants us to get her out of her apartment because she does not want to go back to living there.
--- NOTE | 2024-01-29 16:36 | PC.NURSE ---
pt currently reporting that she is with twins.
[2024-01-29] MEDS: hydrOXYzine HCL 25 MG TABLET PO (16:51)
--- NOTE | 2024-01-29 17:07 | PC.NURSE ---
pt ate sun-butter and nasir gordon pt now reporting all over body itching and hives - informed PA Collin and cosme ordered. made kitchen aware of allerg.y
[2024-01-29 17:08] LABS: COVID-19 Test Negative (Negative); IDNOW Serial# 152EDE1D
--- NOTE | 2024-01-29 17:16 | PC.NURSE ---
pt continues to refuse lab work and EKG at this time. becomes angry and yelling when asked about it.
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
--- NOTE | 2024-01-29 18:17 | PC.NURSE ---
pt signed CV
--- NOTE | 2024-01-29 19:10 | PC.NURSE ---
Assumed care of pt at 1900. PT agreed to blood draw but continues to refused EKG. Plan for PT to go to [facility].
[2024-01-29 19:28] LABS: MANUAL DIFF FLAG NO
[2024-01-29 19:38] LABS: Basophils Percent Auto 0.3 % (0-2); Eosinophils Absolute Auto 0.1 X10*3/uL (0.0-0.4); Eosinophils Percent Auto 1.3 % (0-4); Hematocrit 39.1 % (37.0-47.0); Hemoglobin 12.8 g/dl (12.0-16.0); Imm Gran Abs Auto 0.01 X10*3/uL (0.00-0.03); Imm Gran Pct Auto 0.1 % (0.0-0.4); Lymphocytes Absolute Auto 3.1 X10*3/uL (1.2-4.9); Lymphocytes Percent Auto 45.5 % (20-40); Mean Corpuscular HGB Conc 32.7 g/dl (31.0-35.0); Mean Corpuscular Hemoglobin 29.5 pg (27.0-33.0); Mean Corpuscular Volume 90.1 fL (80.0-98.0); Mean Platelet Volume 10.5 fL (9.4-12.3); Monocytes Absolute Auto 0.6 X10*3/uL (0.1-1.2); Monocytes Percent Auto 8.6 % (2-11); Neutrophils Percent Auto 44.2 % (45-73); Platelet Count 222 X10*3/uL (160-400); Red Blood Count 4.34 X10*6/uL (4.20-5.50); Red Cell Distribution Width 12.7 % (11.0-16.0); White Blood Count 6.7 X10*3/uL (4.8-10.8)
[2024-01-29 19:49] LABS: Alanine Aminotransferase 30 U/L (0-31); Albumin Level 4.3 g/dL (3.5-5.0); Alkaline Phosphatase 82 U/L (39-117); Anion Gap 13 (12-20); Aspartate Amino Transferase 34 U/L (5-31); Bilirubin Total 0.4 mg/dL (0.0-1.0); Blood Urea Nitrogen 10 mg/dL (9-16); Calcium 9.8 mg/dL (8.4-10.2); Carbon Dioxide 26 mmol/L (22-29); Chloride 105 mmol/L (96-108); Estimated Glomerular Filt Rate > 60; Ethanol < 10 mg/dL; Glucose Random 102 mg/dL (60-115); Magnesium 1.8 mg/dL (1.6-2.6); Potassium 4.3 mmol/L (3.3-5.1); Sodium 140 mmol/L (135-145); Total Protein 9.2 g/dL (6.5-8.0)
[2024-01-29 19:58] LABS: Troponin-I High Sensitivity < 2.7 ng/L (<3.5-17.0)
[2024-01-29 20:11] LABS: Urine Pregnancy NEGATIVE (NEGATIVE)
[2024-01-29 20:12] LABS: UPreg QC Valid YES
[2024-01-29] MEDS: Acetaminophen 325 MG TABLET 650 MG PO (20:55)
[2024-01-29 22:30] VITALS: BP 133/82; PULSE 70; RESP 16; TEMP 36.1; O2SAT 98
[2024-01-29] MEDS: diphenhydrAMINE HCL 25 MG CAPSULE PO (23:24)
[2024-01-29] MEDS: QUEtiapine Fumarate 300 MG TABLET 600 MG PO (23:24)
[2024-01-29] MEDS: Lidocaine 4 % Patch ADH..PATCH 1 PATCH TRANSDERMA (23:37)
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
--- NOTE | 2024-01-30 11:54 | PC.NURSE ---
Pt refused flu vaccine at this time. Pt refused tobacco/alcohol screening and refused to participate in admission assessment. Pt yelled at staff and said I just want to sleep.
[2024-01-30] MEDS: clonazePAM 1 MG TABLET PO ×2 (15:00→22:30)
[2024-01-30 19:45] VITALS: BP 132/72; PULSE 85; RESP 16; TEMP 36; O2SAT 100
[2024-01-30] MEDS: QUEtiapine Fumarate 300 MG TABLET 600 MG PO (22:00)
[2024-01-30] MEDS: diphenhydrAMINE HCL 25 MG CAPSULE PO (22:29)
[2024-01-31] MEDS: clonazePAM 1 MG TABLET PO ×2 (12:25→22:12)
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
[2024-01-31 22:00] VITALS: RESP 16
[2024-01-31] MEDS: QUEtiapine Fumarate 300 MG TABLET 600 MG PO (22:12)
[2024-01-31] MEDS: Sodium Chloride 0.65 % Nasal 44 ML SPRBTL 1 SPRAY NOSTRIL-B (22:21)
[2024-01-31] MEDS: Lidocaine 4 % Patch ADH..PATCH 1 PATCH TRANSDERMA (22:21)
[2024-01-31] MEDS: diphenhydrAMINE HCL 25 MG CAPSULE PO (22:23)
--- NOTE | 2024-02-01 16:02 | P.PNPSI_ITS ---
Subjective Subjective Date of Service: 02/01/24 Reason For Visit: Disorganized Interim History: irritable, labile. seen with certified court interpreter. states she does not wish to speak with MD, provides no reason, and then walks away from MD and certified court interpreter. per Norberto valerob up 02/02. refused labs. disorganized, asking for DC. took all meds last NOC, but otherwise hasn't been taking them. slept. Mental Status Exam Mental Status Exam Narrative: Casually dressed. Short hair. Good self care. Loud. not Pressured. Irritable. Guarded and suspicious. Paranoid delusions. no SI/HI expressed. Insight and judgment limited. Diagnostics Vital Signs (24Hr): Vital Signs - 24 hr 01/31/24 22:00 Respiratory Rate 16 BMI result Body Mass Index 32.5 Labs 01/29/24 19:23 01/29/24 19:24 Medications Medications Current Medications Acetaminophen (Acetaminophen 325 Mg Tablet) 650 mg PO Q6H PRN PRN Reason: Headache/Pain Mild Scale (1-3) Last Admin: 01/29/24 20:55 Dose: 650 mg Al Hydroxide/Mg Hydroxide (Magnesium Hydrox/Alum Hydrox 30 Ml Oral.Susp) 30 ml PO Q6H PRN PRN Reason: Heartburn/Nausea Amlodipine Besylate (Amlodipine Besylate 5 Mg Tablet) 5 mg PO DAILY [facility]; Protocol Last Admin: 02/01/24 10:14 Dose: Not Given Clonazepam (Clonazepam 1 Mg Tablet) 1 mg PO TID [facility] Last Admin: 02/01/24 15:46 Dose: Not Given Diphenhydramine HCl (Diphenhydramine Hcl 25 Mg Capsule) 25 mg PO BEDTIME PRN PRN Reason: insomnia Last Admin: 01/31/24 22:23 Dose: 25 mg Fluticasone Propionate (Fluticasone Propionate Nasal 16 Gm [place]) 2 spray NOSTRIL-B DAILY [facility] Last Admin: 02/01/24 10:15 Dose: Not Given Hydroxyzine HCl (Hydroxyzine Hcl 25 Mg Tablet) 25 mg PO Q6H PRN PRN Reason: Anxiety Levothyroxine Sodium (Levothyroxine Sodium 50 Mcg Tablet) 50 mcg PO DAILY@0630 [facility] Last Admin: 02/01/24 10:05 Dose: Not Given Lidocaine (Lidocaine 4 % Patch Adh..Patch) 1 patch TRANSDERMA DAILY PRN; Protocol PRN Reason: right arm pain Last Admin: 01/31/24 22:21 Dose: 1 patch Magnesium Hydroxide (Milk Of Magnesia 30 Ml Oral.Susp) 30 ml PO DAILY PRN PRN Reason: Constipation Nicotine (Nicotine 21 Mg Patch.Td24) 21 mg TRANSDERMA DAILY PRN PRN Reason: smoking cessation Nicotine Polacrilex (Nicotine Polacrilex 2 Mg Gum) 4 mg BUCCAL Q2H PRN PRN Reason: Nicotine Cravings Olanzapine (Olanzapine 5 Mg Tablet) 5 mg PO TID PRN PRN Reason: agitation Quetiapine Fumarate (Quetiapine Fumarate 300 Mg Tablet) 600 mg PO BID [facility] Last Admin: 02/01/24 10:15 Dose: Not Given Sodium Chloride (Sodium Chloride 0.65 % Nasal 44 Ml Sprbtl) 1 spray NOSTRIL-B Q1H PRN PRN Reason: dry nares Last Admin: 01/31/24 22:21 Dose: 1 spray Trazodone HCl (Trazodone Hcl 50 Mg Tablet) 50 mg PO BEDTIME MRX1 PRN PRN Reason: Insomnia Allergies Allergies Allergy/AdvReac Type Severity Reaction Status Date / Time haloperidol [From HALDOL] Allergy Intermediate LOWERS Verified 06/10/23 12:47 HEART RATE trazodone AdvReac Intermediate Hives Verified 06/10/23 12:47 Assessment & Plan Assessment & Plan (1) Bipolar 1 disorder: Status: Acute Code(s): F31.9 - Bipolar disorder, unspecified Plan Manic with psychosis. Potential danger to others. Declining med changes. Unclear adherence, so will continue with home regimen for now. 01/31: took HS meds last night, did not take meds earlier. irritable, labile, disorganized. 3-day up weds. Reason for continued inpatient stay Substantial Risk for: harm to others and inability to function Time Spent With Patient Time: Total time managing care of this patient today __25__ minutes.
[2024-02-01] MEDS: Lidocaine 4 % Patch ADH..PATCH 1 PATCH TRANSDERMA (22:09)
[2024-02-01] MEDS: clonazePAM 1 MG TABLET PO (22:10)
[2024-02-01] MEDS: QUEtiapine Fumarate 300 MG TABLET 600 MG PO (22:10)
[2024-02-01] MEDS: diphenhydrAMINE HCL 25 MG CAPSULE PO (22:10)
[2024-02-01 22:15] VITALS: RESP 14
[2024-02-02 06:00] VITALS: RESP 18
--- NOTE | 2024-02-02 15:24 | HO.PSYCHPN ---
Subjective Subjective Date of Service: 02/02/24 Reason For Visit: Disorganized Interim History: seen with syriac speaking RN Ulices. labile, irritable, paranoid delusional. talking about how people are knocking holes under her sink and putting cameras into her apartment to spy on her, how some people from her apartment are on the unit stalking her, threatens to strangle her roommate, demanding to discharge home. per staff, 12b up tomorrow. irritable. withdrawn and guarded. brighter eves. less irritable. showered. Mental Status Exam Mental Status Exam Narrative: Casually dressed. Short hair. Good self care. Loud. Pressured. Irritable. Guarded and suspicious. Paranoid delusions. no SI expressed. threatened to strangle her roommate. Insight and judgment limited. Diagnostics Vital Signs (24Hr): Vital Signs - 24 hr 02/01/24 22:15 Respiratory Rate 14 BMI result Body Mass Index 32.5 Labs 01/29/24 19:23 01/29/24 19:24 Medications Medications Current Medications Acetaminophen (Acetaminophen 325 Mg Tablet) 650 mg PO Q6H PRN PRN Reason: Headache/Pain Mild Scale (1-3) Last Admin: 01/29/24 20:55 Dose: 650 mg Al Hydroxide/Mg Hydroxide (Magnesium Hydrox/Alum Hydrox 30 Ml Oral.Susp) 30 ml PO Q6H PRN PRN Reason: Heartburn/Nausea Amlodipine Besylate (Amlodipine Besylate 5 Mg Tablet) 5 mg PO DAILY [facility]; Protocol Last Admin: 02/02/24 10:53 Dose: Not Given Clonazepam (Clonazepam 1 Mg Tablet) 1 mg PO TID [facility] Last Admin: 02/02/24 15:20 Dose: Not Given Diphenhydramine HCl (Diphenhydramine Hcl 25 Mg Capsule) 25 mg PO BEDTIME PRN PRN Reason: insomnia Last Admin: 02/01/24 22:10 Dose: 25 mg Fluticasone Propionate (Fluticasone Propionate Nasal 16 Gm [place]) 2 spray NOSTRIL-B DAILY [facility] Last Admin: 02/02/24 10:53 Dose: Not Given Hydroxyzine HCl (Hydroxyzine Hcl 25 Mg Tablet) 25 mg PO Q6H PRN PRN Reason: Anxiety Levothyroxine Sodium (Levothyroxine Sodium 50 Mcg Tablet) 50 mcg PO DAILY@0630 [facility] Last Admin: 02/02/24 10:53 Dose: Not Given Lidocaine (Lidocaine 4 % Patch Adh..Patch) 1 patch TRANSDERMA DAILY PRN; Protocol PRN Reason: right arm pain Last Admin: 02/01/24 22:09 Dose: 1 patch Magnesium Hydroxide (Milk Of Magnesia 30 Ml Oral.Susp) 30 ml PO DAILY PRN PRN Reason: Constipation Nicotine (Nicotine 21 Mg Patch.Td24) 21 mg TRANSDERMA DAILY PRN PRN Reason: smoking cessation Nicotine Polacrilex (Nicotine Polacrilex 2 Mg Gum) 4 mg BUCCAL Q2H PRN PRN Reason: Nicotine Cravings Olanzapine (Olanzapine 5 Mg Tablet) 5 mg PO TID PRN PRN Reason: agitation Quetiapine Fumarate (Quetiapine Fumarate 300 Mg Tablet) 600 mg PO BID [facility] Last Admin: 02/02/24 10:54 Dose: Not Given Sodium Chloride (Sodium Chloride 0.65 % Nasal 44 Ml Sprbtl) 1 spray NOSTRIL-B Q1H PRN PRN Reason: dry nares Last Admin: 01/31/24 22:21 Dose: 1 spray Trazodone HCl (Trazodone Hcl 50 Mg Tablet) 50 mg PO BEDTIME MRX1 PRN PRN Reason: Insomnia Allergies Allergies Allergy/AdvReac Type Severity Reaction Status Date / Time haloperidol [From HALDOL] Allergy Intermediate LOWERS Verified 06/10/23 12:47 HEART RATE trazodone AdvReac Intermediate Hives Verified 06/10/23 12:47 Assessment & Plan Assessment & Plan (1) Bipolar 1 disorder: Status: Acute Code(s): F31.9 - Bipolar disorder, unspecified Plan Manic with psychosis. Potential danger to others. Declining med changes. Unclear adherence, so will continue with home regimen for now. 01/31: took HS meds last night, did not take meds earlier. irritable, labile, disorganized. 12b up . 02/01: not consistently taking meds. threatened to strangle roommate. floridly manic. 12b up tomorrow. Reason for continued inpatient stay Substantial Risk for: harm to others and inability to function Time Spent With Patient Time: Total time managing care of this patient today _25___ minutes.
[2024-02-02] MEDS: Acetaminophen 325 MG TABLET 650 MG PO (16:30)
[2024-02-02] MEDS: Lidocaine 4 % Patch ADH..PATCH 1 PATCH TRANSDERMA (22:16)
[2024-02-02] MEDS: QUEtiapine Fumarate 300 MG TABLET 600 MG PO (22:17)
[2024-02-02] MEDS: diphenhydrAMINE HCL 25 MG CAPSULE PO (22:17)
[2024-02-02] MEDS: clonazePAM 1 MG TABLET PO (22:17)
[2024-02-02 22:21] VITALS: BP 135/79; PULSE 83; RESP 16; TEMP 36.4; O2SAT 97
[2024-02-03 08:39] VITALS: BP 124/80; PULSE 80; RESP 18; TEMP 36.1; O2SAT 97
[2024-02-03 12:55] LABS: Influenza A PCR NEGATIVE (Negative); Influenza B PCR NEGATIVE (Negative); Resp Syncy Virus RNA Qual PCR NEGATIVE (Negative); SARS COV2 PCR INHOUSE NEGATIVE (Negative)
[2024-02-03] MEDS: QUEtiapine Fumarate 100 MG TABLET PO (13:09)
--- NOTE | 2024-02-03 14:32 | HO.PSYCHPN ---
Subjective Subjective Date of Service: 02/03/24 Reason For Visit: Disorganized Interim History: seen with macedonian-speaking RN Ulices. pt pressured re paranoid ideations. she presents MD and RN with information from her phone which she asserts supports her paranoid claims. only one recording is of any concern, sheere it appears someone tells pt, there's a bullet for you and a bullet for me if she does not stop telling the police about narcotics trafficking in the building. she denies being a rat. she was informed of filing for commitment today and advised to take her medications every night. agrees change seroquel in the morning to 100 mg (from the 200 which she has been refusing, saying it makes her too tired). per staff, 12b up today. paranoid, agitated. attending to ADLs. stating 2 particular peers on the unit are actually from her apartment building and are here to harm her. Mental Status Exam Mental Status Exam Narrative: Casually dressed. Short hair. Good self care. Loud. Pressured. Irritable. Guarded and suspicious. Paranoid delusions. no SI expressed. Insight and judgment impaired. Diagnostics Vital Signs (24Hr): Vital Signs - 24 hr 02/02/24 22:21 02/03/24 08:39 Temperature 97.5 F 97.0 F Pulse Rate 83 80 Respiratory Rate 16 18 Blood Pressure 135/79 124/80 Pulse Oximetry 97 97 Oxygen Delivery Method Room Air Room Air BMI result Body Mass Index 32.5 Labs 01/29/24 19:23 01/29/24 19:24 Labs: Laboratory Results - last 48 hr 02/03/24 11:34 Influenza Type A (PCR) NEGATIVE Influenza Type B (PCR) NEGATIVE RSV RNA Qual (PCR) NEGATIVE SARS-CoV-2 RNA (RT-PCR) NEGATIVE Medications Medications Current Medications Acetaminophen (Acetaminophen 325 Mg Tablet) 650 mg PO Q6H PRN PRN Reason: Headache/Pain Mild Scale (1-3) Last Admin: 02/02/24 16:30 Dose: 650 mg Al Hydroxide/Mg Hydroxide (Magnesium Hydrox/Alum Hydrox 30 Ml Oral.Susp) 30 ml PO Q6H PRN PRN Reason: Heartburn/Nausea Amlodipine Besylate (Amlodipine Besylate 5 Mg Tablet) 5 mg PO DAILY [facility]; Protocol Last Admin: 03/13/24 11:17 Dose: Not Given Clonazepam (Clonazepam 1 Mg Tablet) 1 mg PO TID [facility] Last Admin: 02/03/24 11:17 Dose: Not Given Diphenhydramine HCl (Diphenhydramine Hcl 25 Mg Capsule) 50 mg PO BEDTIME PRN PRN Reason: insomnia Fluticasone Propionate (Fluticasone Propionate Nasal 16 Gm [place]) 2 spray NOSTRIL-B DAILY [facility] Last Admin: 02/03/24 11:17 Dose: Not Given Hydroxyzine HCl (Hydroxyzine Hcl 25 Mg Tablet) 25 mg PO Q6H PRN PRN Reason: Anxiety Levothyroxine Sodium (Levothyroxine Sodium 50 Mcg Tablet) 50 mcg PO DAILY@0630 [facility] Last Admin: 02/03/24 11:17 Dose: Not Given Lidocaine (Lidocaine 4 % Patch Adh..Patch) 1 patch TRANSDERMA DAILY PRN; Protocol PRN Reason: right arm pain Last Admin: 02/02/24 22:16 Dose: 1 patch Magnesium Hydroxide (Milk Of Magnesia 30 Ml Oral.Susp) 30 ml PO DAILY PRN PRN Reason: Constipation Nicotine (Nicotine 21 Mg Patch.Td24) 21 mg TRANSDERMA DAILY PRN PRN Reason: smoking cessation Nicotine Polacrilex (Nicotine Polacrilex 2 Mg Gum) 4 mg BUCCAL Q2H PRN PRN Reason: Nicotine Cravings Olanzapine (Olanzapine 5 Mg Tablet) 5 mg PO TID PRN PRN Reason: agitation Quetiapine Fumarate (Quetiapine Fumarate 300 Mg Tablet) 600 mg PO BID [facility] Last Admin: 02/03/24 11:17 Dose: Not Given Quetiapine Fumarate (Quetiapine Fumarate 100 Mg Tablet) 100 mg PO DAILY [facility] Last Admin: 02/03/24 13:09 Dose: 100 mg Sodium Chloride (Sodium Chloride 0.65 % Nasal 44 Ml Sprbtl) 1 spray NOSTRIL-B Q1H PRN PRN Reason: dry nares Last Admin: 01/31/24 22:21 Dose: 1 spray Trazodone HCl (Trazodone Hcl 50 Mg Tablet) 50 mg PO BEDTIME MRX1 PRN PRN Reason: Insomnia Allergies Allergies Allergy/AdvReac Type Severity Reaction Status Date / Time haloperidol [From HALDOL] Allergy Intermediate LOWERS Verified 06/10/23 12:47 HEART RATE trazodone AdvReac Intermediate Hives Verified 06/10/23 12:47 Assessment & Plan Assessment & Plan (1) Bipolar 1 disorder: Status: Acute Code(s): F31.9 - Bipolar disorder, unspecified Plan Manic with psychosis. Potential danger to others. Declining med changes. Unclear adherence, so will continue with home regimen for now. 01/31: took HS meds last night, did not take meds earlier. irritable, labile, disorganized. 12b up . 02/01: not consistently taking meds. threatened to strangle roommate. floridly manic. 12b up tomorrow. 02/02: consistently refusing morning meds, takes HS meds over other night. informed of filing for commitment. agrees to take 100 of seroquel in the morning. will take more benadryl tonight and if doesn't sleep well will agree to more seroquel at HS as well. Reason for continued inpatient stay Substantial Risk for: harm to others, inability to function and rapid decompensation Time Spent With Patient Time: Total time managing care of this patient today __35__ minutes.
[2024-02-03] MEDS: clonazePAM 1 MG TABLET PO ×2 (14:53→22:09)
[2024-02-03 19:45] VITALS: BP 150/85; PULSE 91; RESP 18; TEMP 36.3; O2SAT 98
[2024-02-03] MEDS: Lidocaine 4 % Patch ADH..PATCH 1 PATCH TRANSDERMA (22:08)
[2024-02-03] MEDS: QUEtiapine Fumarate 300 MG TABLET 600 MG PO (22:09)
[2024-02-03] MEDS: diphenhydrAMINE HCL 25 MG CAPSULE 50 MG PO (22:09)
[2024-02-03] MEDS: Acetaminophen 325 MG TABLET 650 MG PO (22:09)
[2024-02-04 06:00] VITALS: BP 110/69; PULSE 91; RESP 18; TEMP 36; O2SAT 98
[2024-02-04] MEDS: QUEtiapine Fumarate 100 MG TABLET PO (09:34)
[2024-02-04] MEDS: clonazePAM 1 MG TABLET PO ×2 (09:34→15:33)
[2024-02-04 12:55] VITALS: BMI 30.3
--- NOTE | 2024-02-04 15:02 | HO.PSYCHPN ---
Subjective Subjective Date of Service: 02/04/24 Reason For Visit: Disorganized Interim History: somewhat somnolent initially, gets more agitated and active as interview wears on. seen with RN Ulices, interpreting. pressured re her paranoid delusions re apartment building. not open to accepting her mental illness or alternate medications from klonopin and seroquel. declines change in mgmt. per staff, not attending groups. taking medications. paranoid. nightmares. slept about 8 hours. no issues. Mental Status Exam Mental Status Exam Narrative: Casually dressed. Short hair. Good self care. Loud. Pressured. mod Irritable. Guarded and suspicious. Paranoid delusions. no SI expressed. Insight and judgment impaired. Diagnostics Vital Signs (24Hr): Vital Signs - 24 hr 02/03/24 19:45 02/04/24 06:00 Temperature 97.4 F 96.8 F Pulse Rate 91 91 Respiratory Rate 18 18 Blood Pressure 150/85 H 110/69 Pulse Oximetry 98 98 Oxygen Delivery Method Room Air Room Air BMI result Body Mass Index 30.3 Labs 01/29/24 19:23 01/29/24 19:24 Labs: Laboratory Results - last 48 hr 02/03/24 11:34 Influenza Type A (PCR) NEGATIVE Influenza Type B (PCR) NEGATIVE RSV RNA Qual (PCR) NEGATIVE SARS-CoV-2 RNA (RT-PCR) NEGATIVE Medications Medications Current Medications Acetaminophen (Acetaminophen 325 Mg Tablet) 650 mg PO Q6H PRN PRN Reason: Headache/Pain Mild Scale (1-3) Last Admin: 02/03/24 22:09 Dose: 650 mg Al Hydroxide/Mg Hydroxide (Magnesium Hydrox/Alum Hydrox 30 Ml Oral.Susp) 30 ml PO Q6H PRN PRN Reason: Heartburn/Nausea Amlodipine Besylate (Amlodipine Besylate 5 Mg Tablet) 5 mg PO DAILY [facility]; Protocol Last Admin: 02/04/24 09:39 Dose: Not Given Clonazepam (Clonazepam 1 Mg Tablet) 1 mg PO TID [facility] Last Admin: 02/04/24 09:34 Dose: 1 mg Diphenhydramine HCl (Diphenhydramine Hcl 25 Mg Capsule) 50 mg PO BEDTIME PRN PRN Reason: insomnia Last Admin: 02/03/24 22:09 Dose: 50 mg Fluticasone Propionate (Fluticasone Propionate Nasal 16 Gm [place]) 2 spray NOSTRIL-B DAILY [facility] Last Admin: 02/04/24 09:39 Dose: Not Given Hydroxyzine HCl (Hydroxyzine Hcl 25 Mg Tablet) 25 mg PO Q6H PRN PRN Reason: Anxiety Levothyroxine Sodium (Levothyroxine Sodium 50 Mcg Tablet) 50 mcg PO DAILY@0630 [facility] Last Admin: 02/04/24 09:38 Dose: Not Given Lidocaine (Lidocaine 4 % Patch Adh..Patch) 1 patch TRANSDERMA DAILY PRN; Protocol PRN Reason: right arm pain Last Admin: 02/03/24 22:08 Dose: 1 patch Magnesium Hydroxide (Milk Of Magnesia 30 Ml Oral.Susp) 30 ml PO DAILY PRN PRN Reason: Constipation Nicotine (Nicotine 21 Mg Patch.Td24) 21 mg TRANSDERMA DAILY PRN PRN Reason: smoking cessation Nicotine Polacrilex (Nicotine Polacrilex 2 Mg Gum) 4 mg BUCCAL Q2H PRN PRN Reason: Nicotine Cravings Olanzapine (Olanzapine 5 Mg Tablet) 5 mg PO TID PRN PRN Reason: agitation Quetiapine Fumarate (Quetiapine Fumarate 100 Mg Tablet) 100 mg PO DAILY [facility] Last Admin: 02/04/24 09:34 Dose: 100 mg Quetiapine Fumarate (Quetiapine Fumarate 300 Mg Tablet) 600 mg PO BEDTIME [facility] Sodium Chloride (Sodium Chloride 0.65 % Nasal 44 Ml Sprbtl) 1 spray NOSTRIL-B Q1H PRN PRN Reason: dry nares Last Admin: 01/31/24 22:21 Dose: 1 spray Trazodone HCl (Trazodone Hcl 50 Mg Tablet) 50 mg PO BEDTIME MRX1 PRN PRN Reason: Insomnia Allergies Allergies Allergy/AdvReac Type Severity Reaction Status Date / Time haloperidol [From HALDOL] Allergy Intermediate LOWERS Verified 06/10/23 12:47 HEART RATE trazodone AdvReac Intermediate Hives Verified 06/10/23 12:47 Assessment & Plan Assessment & Plan (1) Bipolar 1 disorder: Status: Acute Code(s): F31.9 - Bipolar disorder, unspecified Plan Manic with psychosis. Potential danger to others. Declining med changes. Unclear adherence, so will continue with home regimen for now. 01/31: took HS meds last night, did not take meds earlier. irritable, labile, disorganized. 12b up . 02/01: not consistently taking meds. threatened to strangle roommate. floridly manic. 12b up tomorrow. 02/02: consistently refusing morning meds, takes HS meds over other night. informed of filing for commitment. agrees to take 100 of seroquel in the morning. will take more benadryl tonight and if doesn't sleep well will agree to more seroquel at HS as well. 02/03: slightly less manic this morning after having gotten an additional 100 of seroquel in the a.m. slept 8 hours. remains with paranoid delusions. pt declines medication changes. Reason for continued inpatient stay Substantial Risk for: harm to others, inability to function and rapid decompensation Time Spent With Patient Time: Total time managing care of this patient today __35__ minutes.
[2024-02-04 19:45] VITALS: BP 146/78; PULSE 88; RESP 16; TEMP 36.3; O2SAT 99
[2024-02-05 06:00] VITALS: RESP 18
[2024-02-05] MEDS: QUEtiapine Fumarate 100 MG TABLET PO (09:34)
[2024-02-05] MEDS: clonazePAM 1 MG TABLET PO ×2 (09:34→20:20)
[2024-02-05 09:53] LABS: COVID-19 Test Negative (Negative); IDNOW Serial# 152EDE1D
[2024-02-05] MEDS: Fluticasone Propionate Nasal 16 GM SPRAY 2 SPRAY NOSTRIL-B (10:12)
[2024-02-05] MEDS: Lithium Carbonate ER 300 MG TABLET.ER PO ×2 (13:23→21:35)
--- NOTE | 2024-02-05 15:37 | P.PNPSI_ITS ---
Subjective Subjective Date of Service: 02/05/24 Reason For Visit: Disorganized Interim History: agitated, irritable, labile, delusional. states she did not take her medication last night and did not sleep at all. upset about [facility] staff using patients to interpret rather than interpreters. after long discussion and negotiation, pt agrees to start lithium (300 BID). per staff, labile, paranobid. not attending groups. eves agitated and labile. broke headphones. Mental Status Exam Mental Status Exam Narrative: Casually dressed. Short hair. Good self care. Loud. Pressured. Irritable. Guarded and suspicious. Paranoid delusions. no SI expressed. Insight and judgment impaired. Diagnostics Vital Signs (24Hr): Vital Signs - 24 hr 02/04/24 19:45 02/05/24 06:00 Temperature 97.3 F Pulse Rate 88 Respiratory Rate 16 18 Blood Pressure 146/78 H Pulse Oximetry 99 Oxygen Delivery Method Room Air BMI result Body Mass Index 30.3 Labs 01/29/24 19:23 01/29/24 19:24 Labs: Laboratory Results - last 48 hr 02/05/24 08:54 COVID-19 ([facility]) Negative COVID-19 Clin Com See Note Medications Medications Current Medications Acetaminophen (Acetaminophen 325 Mg Tablet) 650 mg PO Q6H PRN PRN Reason: Headache/Pain Mild Scale (1-3) Last Admin: 02/03/24 22:09 Dose: 650 mg Al Hydroxide/Mg Hydroxide (Magnesium Hydrox/Alum Hydrox 30 Ml Oral.Susp) 30 ml PO Q6H PRN PRN Reason: Heartburn/Nausea Amlodipine Besylate (Amlodipine Besylate 5 Mg Tablet) 5 mg PO DAILY [facility]; Protocol Last Admin: 02/05/24 09:36 Dose: Not Given Clonazepam (Clonazepam 1 Mg Tablet) 1 mg PO TID [facility] Last Admin: 02/05/24 09:34 Dose: 1 mg Diphenhydramine HCl (Diphenhydramine Hcl 25 Mg Capsule) 50 mg PO BEDTIME PRN PRN Reason: insomnia Last Admin: 02/03/24 22:09 Dose: 50 mg Fluticasone Propionate (Fluticasone Propionate Nasal 16 Gm [place]) 2 spray NOSTRIL-B DAILY [facility] Last Admin: 02/05/24 10:12 Dose: 2 spray Hydroxyzine HCl (Hydroxyzine Hcl 25 Mg Tablet) 25 mg PO Q6H PRN PRN Reason: Anxiety Levothyroxine Sodium (Levothyroxine Sodium 50 Mcg Tablet) 50 mcg PO DAILY@0630 [facility] Last Admin: 02/05/24 09:35 Dose: Not Given Lidocaine (Lidocaine 4 % Patch Adh..Patch) 1 patch TRANSDERMA DAILY PRN; Protocol PRN Reason: right arm pain Last Admin: 02/03/24 22:08 Dose: 1 patch [place] Carbonate ([place] Carbonate Er 300 Mg Tablet.Er) 300 mg PO BID [facility] Last Admin: 02/05/24 13:23 Dose: 300 mg Magnesium Hydroxide (Milk Of Magnesia 30 Ml Oral.Susp) 30 ml PO DAILY PRN PRN Reason: Constipation Nicotine (Nicotine 21 Mg Patch.Td24) 21 mg TRANSDERMA DAILY PRN PRN Reason: smoking cessation Nicotine Polacrilex (Nicotine Polacrilex 2 Mg Gum) 4 mg BUCCAL Q2H PRN PRN Reason: Nicotine Cravings Olanzapine (Olanzapine 5 Mg Tablet) 5 mg PO TID PRN PRN Reason: agitation Quetiapine Fumarate (Quetiapine Fumarate 300 Mg Tablet) 600 mg PO BEDTIME [facility] Last Admin: 02/04/24 22:11 Dose: Not Given Quetiapine Fumarate (Quetiapine Fumarate 200 Mg Tablet) 200 mg PO DAILY [facility] Sodium Chloride (Sodium Chloride 0.65 % Nasal 44 Ml Sprbtl) 1 spray NOSTRIL-B Q1H PRN PRN Reason: dry nares Last Admin: 01/31/24 22:21 Dose: 1 spray Trazodone HCl (Trazodone Hcl 50 Mg Tablet) 50 mg PO BEDTIME MRX1 PRN PRN Reason: Insomnia Allergies Allergies Allergy/AdvReac Type Severity Reaction Status Date / Time haloperidol [From HALDOL] Allergy Intermediate LOWERS Verified 06/10/23 12:47 HEART RATE trazodone AdvReac Intermediate Hives Verified 06/10/23 12:47 Assessment & Plan Assessment & Plan (1) Bipolar 1 disorder: Status: Acute Code(s): F31.9 - Bipolar disorder, unspecified Plan Manic with psychosis. Potential danger to others. Declining med changes. Unclear adherence, so will continue with home regimen for now. 01/31: took HS meds last night, did not take meds earlier. irritable, labile, disorganized. 12b up . 02/01: not consistently taking meds. threatened to strangle roommate. floridly manic. 12b up tomorrow. 02/02: consistently refusing morning meds, takes HS meds over other night. informed of filing for commitment. agrees to take 100 of seroquel in the morning. will take more benadryl tonight and if doesn't sleep well will agree to more seroquel at HS as well. 02/03: slightly less manic this morning after having gotten an additional 100 of seroquel in the a.m. slept 8 hours. remains with paranoid delusions. pt declines medication changes. 02/04: pt agrees to start lithium 300 BID and to add another 100 mg of seroquel in the morning for a total morning dose of 200 mg. had refused meds last night and was rather labile and irritable today. Reason for continued inpatient stay Substantial Risk for: harm to others, inability to function and rapid decompensation Time Spent With Patient Time: Total time managing care of this patient today __35__ minutes.
[2024-02-05] MEDS: Acetaminophen 325 MG TABLET 650 MG PO (17:13)
[2024-02-05 19:45] VITALS: BP 152/87; PULSE 82; RESP 18; TEMP 36.6; O2SAT 99
[2024-02-05] MEDS: QUEtiapine Fumarate 300 MG TABLET 600 MG PO (21:35)
[2024-02-05 22:15] VITALS: BP 122/87; PULSE 66
[2024-02-05] MEDS: Lidocaine 4 % Patch ADH..PATCH 1 PATCH TRANSDERMA (23:23)
[2024-02-06] MEDS: Levothyroxine Sodium 50 MCG TABLET PO (07:46)
[2024-02-06 09:33] VITALS: BP 146/74; PULSE 75; RESP 18; TEMP 36.1; O2SAT 98
[2024-02-06] MEDS: QUEtiapine Fumarate 200 MG TABLET PO (09:59)
[2024-02-06] MEDS: clonazePAM 1 MG TABLET PO ×3 (09:59→21:57)
[2024-02-06] MEDS: Fluticasone Propionate Nasal 16 GM SPRAY 2 SPRAY NOSTRIL-B (10:00)
[2024-02-06] MEDS: amLODIPine Besylate 5 MG TABLET PO (10:00)
[2024-02-06] MEDS: Lithium Carbonate ER 300 MG TABLET.ER PO ×2 (10:00→21:57)
--- NOTE | 2024-02-06 11:50 | HO.PSYCHPN ---
Subjective Subjective Date of Service: 02/06/24 Reason For Visit: Disorganized Subjective Notes: Conditional Voluntary Interim History: Pt yelling at times, making sounds of shooting guns, states she is pretending to shoot her neighbors because she states they were bothering me. She has been visible on the unit, social with select peers. No behavioral concerns. She denies SI/HI. Somewhat of irritable edge, and guarded. Review of Systems Review of Systems nothing acute Yes Unobtainable due to mental status Mental Status Exam Mental Status Exam Narrative: Casually dressed. Short hair. Good self care. Loud. Pressured. Irritable. Guarded and suspicious. Paranoid delusions. no SI expressed. Insight and judgment impaired. Diagnostics Vital Signs (24Hr): Vital Signs - 24 hr 02/05/24 19:45 02/05/24 22:15 02/06/24 09:33 Temperature 97.8 F 97.0 F Pulse Rate 82 66 75 Respiratory Rate 18 18 Blood Pressure 152/87 H 122/87 146/74 H Pulse Oximetry 99 98 Oxygen Delivery Method Room Air BMI result Body Mass Index 30.3 Labs 01/29/24 19:23 01/29/24 19:24 Labs: Laboratory Results - last 48 hr 02/05/24 08:54 COVID-19 ([facility]) Negative COVID-19 Clin Com See Note Medications Medications Current Medications Acetaminophen (Acetaminophen 325 Mg Tablet) 650 mg PO Q6H PRN PRN Reason: Headache/Pain Mild Scale (1-3) Last Admin: 02/05/24 17:13 Dose: 650 mg Al Hydroxide/Mg Hydroxide (Magnesium Hydrox/Alum Hydrox 30 Ml Oral.Susp) 30 ml PO Q6H PRN PRN Reason: Heartburn/Nausea Amlodipine Besylate (Amlodipine Besylate 5 Mg Tablet) 5 mg PO DAILY [facility]; Protocol Last Admin: 02/06/24 10:00 Dose: 5 mg Clonazepam (Clonazepam 1 Mg Tablet) 1 mg PO TID [facility] Last Admin: 02/06/24 09:59 Dose: 1 mg Diphenhydramine HCl (Diphenhydramine Hcl 25 Mg Capsule) 50 mg PO BEDTIME PRN PRN Reason: insomnia Last Admin: 02/03/24 22:09 Dose: 50 mg Fluticasone Propionate (Fluticasone Propionate Nasal 16 Gm [place]) 2 spray NOSTRIL-B DAILY [facility] Last Admin: 02/06/24 10:00 Dose: 2 spray Hydroxyzine HCl (Hydroxyzine Hcl 25 Mg Tablet) 25 mg PO Q6H PRN PRN Reason: Anxiety Levothyroxine Sodium (Levothyroxine Sodium 50 Mcg Tablet) 50 mcg PO DAILY@0630 [facility] Last Admin: 02/06/24 07:46 Dose: 50 mcg Lidocaine (Lidocaine 4 % Patch Adh..Patch) 1 patch TRANSDERMA DAILY PR[facility]; Protocol PRN Reason: right arm pain Last Admin: 02/05/24 23:23 Dose: 1 patch [place] Carbonate ([place] Carbonate Er 300 Mg Tablet.Er) 300 mg PO BID [facility] Last Admin: 02/06/24 10:00 Dose: 300 mg Magnesium Hydroxide (Milk Of Magnesia 30 Ml Oral.Susp) 30 ml PO DAILY PRN PRN Reason: Constipation Nicotine (Nicotine 21 Mg Patch.Td24) 21 mg TRANSDERMA DAILY PRN PRN Reason: smoking cessation Nicotine Polacrilex (Nicotine Polacrilex 2 Mg Gum) 4 mg BUCCAL Q2H PRN PRN Reason: Nicotine Cravings Olanzapine (Olanzapine 5 Mg Tablet) 5 mg PO TID PRN PRN Reason: agitation Quetiapine Fumarate (Quetiapine Fumarate 300 Mg Tablet) 600 mg PO BEDTIME [facility] Last Admin: 02/05/24 21:35 Dose: 600 mg Quetiapine Fumarate (Quetiapine Fumarate 200 Mg Tablet) 200 mg PO DAILY [facility] Last Admin: 02/06/24 09:59 Dose: 200 mg Sodium Chloride (Sodium Chloride 0.65 % Nasal 44 Ml Sprbtl) 1 spray NOSTRIL-B Q1H PRN PRN Reason: dry nares Last Admin: 01/31/24 22:21 Dose: 1 spray Trazodone HCl (Trazodone Hcl 50 Mg Tablet) 50 mg PO BEDTIME MRX1 PRN PRN Reason: Insomnia Allergies Allergies Allergy/AdvReac Type Severity Reaction Status Date / Time haloperidol [From HALDOL] Allergy Intermediate LOWERS Verified 06/10/23 12:47 HEART RATE trazodone AdvReac Intermediate Hives Verified 06/10/23 12:47 Assessment & Plan Assessment & Plan (1) Bipolar 1 disorder: Status: Acute Code(s): F31.9 - Bipolar disorder, unspecified Plan Manic with psychosis. Potential danger to others. Declining med changes. Unclear adherence, so will continue with home regimen for now. 01/31: took HS meds last night, did not take meds earlier. irritable, labile, disorganized. 12b up . 02/01: not consistently taking meds. threatened to strangle roommate. floridly manic. 12b up tomorrow. 02/02: consistently refusing morning meds, takes HS meds over other night. informed of filing for commitment. agrees to take 100 of seroquel in the morning. will take more benadryl tonight and if doesn't sleep well will agree to more seroquel at HS as well. 02/03: slightly less manic this morning after having gotten an additional 100 of seroquel in the a.m. slept 8 hours. remains with paranoid delusions. pt declines medication changes. 02/04: pt agrees to start lithium 300 BID and to add another 100 mg of seroquel in the morning for a total morning dose of 200 mg. had refused meds last night and was rather labile and irritable today. 02/05 continue tx. Reason for continued inpatient stay Substantial Risk for: harm to others and inability to function Time Spent With Patient Time: Total time managing care of this patient today ____ minutes.
[2024-02-06] MEDS: QUEtiapine Fumarate 300 MG TABLET 600 MG PO (21:57)
[2024-02-06 22:00] VITALS: BP 131/82; PULSE 96; RESP 18; TEMP 36.3; O2SAT 95
[2024-02-06] MEDS: Acetaminophen 325 MG TABLET 650 MG PO (23:04)
[2024-02-06] MEDS: Lidocaine 4 % Patch ADH..PATCH 1 PATCH TRANSDERMA (23:05)
[2024-02-07 08:00] VITALS: BP 140/75; PULSE 73; RESP 16; TEMP 36.1; O2SAT 99
[2024-02-07] MEDS: Levothyroxine Sodium 50 MCG TABLET PO (09:04)
[2024-02-07] MEDS: amLODIPine Besylate 5 MG TABLET PO (09:04)
[2024-02-07] MEDS: Lithium Carbonate ER 300 MG TABLET.ER PO ×2 (09:05→20:50)
[2024-02-07] MEDS: Fluticasone Propionate Nasal 16 GM SPRAY 2 SPRAY NOSTRIL-B (09:05)
[2024-02-07] MEDS: QUEtiapine Fumarate 200 MG TABLET PO (09:05)
[2024-02-07] MEDS: clonazePAM 1 MG TABLET PO ×3 (09:05→20:50)
[2024-02-07 19:40] VITALS: BP 143/90; PULSE 84; RESP 18; TEMP 36.6; O2SAT 100
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
[2024-02-07] MEDS: QUEtiapine Fumarate 300 MG TABLET 600 MG PO (20:50)
[2024-02-07] MEDS: Acetaminophen 325 MG TABLET 650 MG PO (20:50)
[2024-02-07] MEDS: Lidocaine 4 % Patch ADH..PATCH 1 PATCH TRANSDERMA (21:44)
[2024-02-08] MEDS: amLODIPine Besylate 5 MG TABLET PO (08:29)
[2024-02-08] MEDS: Levothyroxine Sodium 50 MCG TABLET PO (08:29)
[2024-02-08] MEDS: clonazePAM 1 MG TABLET PO ×3 (08:29→22:14)
[2024-02-08] MEDS: Lithium Carbonate ER 300 MG TABLET.ER PO (08:29)
[2024-02-08] MEDS: QUEtiapine Fumarate 200 MG TABLET PO (08:29)
[2024-02-08 08:30] VITALS: BP 127/80; PULSE 71; RESP 18; TEMP 36.3; O2SAT 98
[2024-02-08] MEDS: Fluticasone Propionate Nasal 16 GM SPRAY 2 SPRAY NOSTRIL-B (08:34)
[2024-02-08] MEDS: Lithium Carbonate 300 MG TABLET 150 MG PO (15:20)
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
[2024-02-08 19:45] VITALS: BP 144/90; PULSE 89; RESP 17; TEMP 36.1; O2SAT 97
[2024-02-08] MEDS: Lithium Carbonate ER 450 MG TABLET.ER PO (22:13)
[2024-02-08] MEDS: QUEtiapine Fumarate 300 MG TABLET 600 MG PO (22:14)
[2024-02-08] MEDS: Acetaminophen 325 MG TABLET 650 MG PO (22:14)
[2024-02-08] MEDS: Lidocaine 4 % Patch ADH..PATCH 1 PATCH TRANSDERMA (22:16)
[2024-02-09 07:45] VITALS: BP 122/79; PULSE 78; RESP 16; TEMP 36.3; O2SAT 96
[2024-02-09] MEDS: Levothyroxine Sodium 50 MCG TABLET PO (08:30)
[2024-02-09] MEDS: Lithium Carbonate ER 450 MG TABLET.ER PO ×2 (09:22→21:48)
[2024-02-09] MEDS: QUEtiapine Fumarate 100 MG TABLET PO (09:23)
[2024-02-09] MEDS: Fluticasone Propionate Nasal 16 GM SPRAY 2 SPRAY NOSTRIL-B (09:23)
[2024-02-09] MEDS: amLODIPine Besylate 5 MG TABLET PO (09:23)
[2024-02-09] MEDS: clonazePAM 1 MG TABLET PO ×3 (09:23→21:48)
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
[2024-02-09] MEDS: Acetaminophen 325 MG TABLET 975 MG PO (15:23)
[2024-02-09 19:35] VITALS: BP 128/82; PULSE 79; RESP 16; TEMP 36.4; O2SAT 98
[2024-02-09] MEDS: QUEtiapine Fumarate 300 MG TABLET 600 MG PO (21:48)
--- NOTE | 2024-02-09 23:14 | PM.EVENT ---
Event Note Date of Service: 02/09/24 Event Note: Medical consult for patient complaining of right arm pain and right facial paresthesia. Edematous see patient for interview and examination, but patient unavailable. Spoke to nursing who was unaware of patient's stated complaints. Will attempt to visit patient again tomorrow. Time Spent With Patient Time: Total time managing care of this patient today ____ minutes.
[2024-02-10 08:20] VITALS: BP 128/69; PULSE 75; RESP 16; TEMP 36.3; O2SAT 97
[2024-02-10] MEDS: Levothyroxine Sodium 50 MCG TABLET PO (08:22)
[2024-02-10] MEDS: Lithium Carbonate ER 450 MG TABLET.ER PO ×2 (09:35→21:00)
[2024-02-10] MEDS: amLODIPine Besylate 5 MG TABLET PO (09:36)
[2024-02-10] MEDS: clonazePAM 0.5 MG TABLET PO (09:36)
[2024-02-10] MEDS: QUEtiapine Fumarate 100 MG TABLET PO (09:36)
[2024-02-10] MEDS: Fluticasone Propionate Nasal 16 GM SPRAY 2 SPRAY NOSTRIL-B (09:37)
[2024-02-10] MEDS: Acetaminophen 325 MG TABLET 975 MG PO (09:42)
[2024-02-10] MEDS: Celecoxib 100 MG CAPSULE PO ×2 (13:24→22:09)
[2024-02-10] MEDS: clonazePAM 1 MG TABLET PO ×2 (14:26→22:08)
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
[2024-02-10 20:30] VITALS: RESP 16
[2024-02-10] MEDS: QUEtiapine Fumarate 300 MG TABLET 600 MG PO (21:00)
[2024-02-11] MEDS: Acetaminophen 325 MG TABLET 975 MG PO (06:43)
[2024-02-11] MEDS: Levothyroxine Sodium 50 MCG TABLET PO (06:43)
[2024-02-11 07:00] VITALS: BMI 32.1
[2024-02-11 08:45] VITALS: BP 181/77; PULSE 69; RESP 15; TEMP 36.2; O2SAT 98
[2024-02-11] MEDS: amLODIPine Besylate 5 MG TABLET PO (08:48)
[2024-02-11] MEDS: Celecoxib 100 MG CAPSULE PO ×2 (08:48→22:17)
[2024-02-11] MEDS: Lithium Carbonate ER 450 MG TABLET.ER PO ×2 (08:48→22:16)
[2024-02-11] MEDS: Fluticasone Propionate Nasal 16 GM SPRAY 2 SPRAY NOSTRIL-B (08:48)
[2024-02-11] MEDS: QUEtiapine Fumarate 100 MG TABLET PO (08:48)
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
[2024-02-11] MEDS: clonazePAM 0.5 MG TABLET PO (10:24)
[2024-02-11] MEDS: amLODIPine Besylate 2.5 MG TABLET PO (10:24)
[2024-02-11 11:17] LABS: Glucose, Whole Blood 120 mg/dL (60-115)
[2024-02-11] MEDS: clonazePAM 1 MG TABLET PO ×2 (15:31→22:16)
[2024-02-11 20:15] VITALS: BP 136/74; PULSE 80; RESP 18; TEMP 36.3; O2SAT 97
[2024-02-11] MEDS: QUEtiapine Fumarate 300 MG TABLET 600 MG PO (22:16)
[2024-02-12 06:00] VITALS: BP 166/80; PULSE 70; RESP 16; TEMP 36.2; O2SAT 98
--- NOTE | 2024-02-12 06:18 | PC.NURSE ---
Paulo was noted to be angry regarding Polygrip denture adhesive. while yelling and throwing clothing items around her room and slamming the door. It me, it mine, I got new yesterday, now gone, the nurse she took it and now it gone, you all stupid, fucking shit, leave me alone you all go to hell, get out. patient declined hospital denture adhesive offered. patient able to calm self down within approximately 1/2 an hour. no further behavioral concerns noted, monitor for safety, continue Plan of Care
[2024-02-12] MEDS: Levothyroxine Sodium 50 MCG TABLET PO (07:02)
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
[2024-02-12] MEDS: QUEtiapine Fumarate 100 MG TABLET PO (09:32)
[2024-02-12] MEDS: clonazePAM 0.5 MG TABLET PO (09:32)
[2024-02-12] MEDS: Celecoxib 100 MG CAPSULE PO ×2 (09:33→23:01)
[2024-02-12] MEDS: amLODIPine Besylate 2.5 MG TABLET 7.5 MG PO (09:33)
[2024-02-12] MEDS: Lithium Carbonate ER 450 MG TABLET.ER PO ×2 (09:33→23:01)
[2024-02-12] MEDS: Fluticasone Propionate Nasal 16 GM SPRAY 2 SPRAY NOSTRIL-B (09:35)
[2024-02-12] MEDS: Acetaminophen 325 MG TABLET 975 MG PO (10:18)
[2024-02-12] MEDS: clonazePAM 1 MG TABLET PO ×2 (14:40→23:01)
[2024-02-12 20:10] VITALS: BP 113/75; PULSE 82; RESP 16; TEMP 36.4; O2SAT 96
[2024-02-12] MEDS: QUEtiapine Fumarate 300 MG TABLET 600 MG PO (23:01)
[2024-02-12] MEDS: Nystatin Cream 15 GM TUBE 1 APPL TOPICAL (23:04)
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
[2024-02-13 08:10] VITALS: BP 133/74; PULSE 70; RESP 14; TEMP 36.8; O2SAT 99
[2024-02-13] MEDS: Levothyroxine Sodium 50 MCG TABLET PO (08:30)
[2024-02-13] MEDS: Lithium Carbonate ER 450 MG TABLET.ER PO ×2 (09:21→22:37)
[2024-02-13] MEDS: Fluticasone Propionate Nasal 16 GM SPRAY 2 SPRAY NOSTRIL-B (09:21)
[2024-02-13] MEDS: amLODIPine Besylate 2.5 MG TABLET 7.5 MG PO (09:22)
[2024-02-13] MEDS: Celecoxib 100 MG CAPSULE PO ×2 (09:22→22:37)
[2024-02-13] MEDS: clonazePAM 0.5 MG TABLET PO (09:22)
[2024-02-13] MEDS: QUEtiapine Fumarate 100 MG TABLET PO (09:22)
[2024-02-13] MEDS: clonazePAM 1 MG TABLET PO ×2 (16:20→22:38)
[2024-02-13] MEDS: Acetaminophen 325 MG TABLET 975 MG PO (20:04)
[2024-02-13 22:00] VITALS: BP 128/75; PULSE 109; RESP 16; TEMP 36.6; O2SAT 97
[2024-02-13] MEDS: diphenhydrAMINE HCL 25 MG CAPSULE 50 MG PO (22:37)
[2024-02-13] MEDS: QUEtiapine Fumarate 300 MG TABLET 600 MG PO (22:37)
[2024-02-14] MEDS: Fluticasone Propionate Nasal 16 GM SPRAY 2 SPRAY NOSTRIL-B (08:27)
[2024-02-14] MEDS: QUEtiapine Fumarate 100 MG TABLET PO (08:27)
[2024-02-14] MEDS: Lithium Carbonate ER 450 MG TABLET.ER PO ×2 (08:27→22:12)
[2024-02-14] MEDS: clonazePAM 0.5 MG TABLET PO (08:27)
[2024-02-14] MEDS: Levothyroxine Sodium 50 MCG TABLET PO (08:27)
[2024-02-14] MEDS: Celecoxib 100 MG CAPSULE PO ×2 (08:27→22:11)
[2024-02-14] MEDS: amLODIPine Besylate 2.5 MG TABLET 7.5 MG PO (08:28)
[2024-02-14] MEDS: Nystatin Cream 15 GM TUBE 1 APPL TOPICAL ×2 (08:29→22:12)
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
[2024-02-14] MEDS: clonazePAM 1 MG TABLET PO ×2 (14:29→22:12)
[2024-02-14] MEDS: Nicotine Polacrilex 2 MG GUM 4 MG BUCCAL (17:49)
[2024-02-14] MEDS: QUEtiapine Fumarate 300 MG TABLET 600 MG PO (22:12)
[2024-02-14] MEDS: diphenhydrAMINE HCL 25 MG CAPSULE 50 MG PO (22:12)
[2024-02-14 22:15] VITALS: BP 144/89; PULSE 90; RESP 16; TEMP 36.3; O2SAT 99
[2024-02-15] MEDS: Levothyroxine Sodium 50 MCG TABLET PO (06:40)
[2024-02-15] MEDS: clonazePAM 0.5 MG TABLET PO ×3 (06:40→14:03)
[2024-02-15 07:50] VITALS: BP 144/72; PULSE 71; RESP 18; TEMP 36.3; O2SAT 100
[2024-02-15] MEDS: Fluticasone Propionate Nasal 16 GM SPRAY 2 SPRAY NOSTRIL-B (09:20)
[2024-02-15] MEDS: amLODIPine Besylate 2.5 MG TABLET 7.5 MG PO (09:22)
[2024-02-15] MEDS: Lithium Carbonate ER 450 MG TABLET.ER PO (09:24)
[2024-02-15] MEDS: QUEtiapine Fumarate 100 MG TABLET PO (09:24)
[2024-02-15] MEDS: Nystatin Cream 15 GM TUBE 1 APPL TOPICAL ×2 (09:26→21:49)
[2024-02-15] MEDS: Celecoxib 100 MG CAPSULE PO ×2 (09:26→21:46)
[2024-02-15] MEDS: LORazepam 1 MG TABLET PO (12:12)
[2024-02-15] MEDS: Nicotine Polacrilex 2 MG GUM 4 MG BUCCAL (13:55)
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
[2024-02-15] MEDS: Acetaminophen 325 MG TABLET 975 MG PO (18:52)
[2024-02-15 20:30] VITALS: BP 131/72; PULSE 89; RESP 16; TEMP 36.9; O2SAT 97
[2024-02-15 20:48] LABS: Lithium 1.11 mmol/L (0.60-1.20)
[2024-02-15 20:53] LABS: Anion Gap 10 (12-20); Blood Urea Nitrogen 19 mg/dL (9-16); Calcium 9.9 mg/dL (8.4-10.2); Carbon Dioxide 31 mmol/L (22-29); Chloride 105 mmol/L (96-108); Estimated Glomerular Filt Rate > 60; Glucose Random 122 mg/dL (60-115); Potassium 4.6 mmol/L (3.3-5.1); Sodium 141 mmol/L (135-145)
[2024-02-15 21:16] LABS: TSH reflex Free T4 3.86 uIU/mL (0.32-4.0)
[2024-02-15] MEDS: Prazosin HCL 1 MG CAPSULE PO (21:46)
[2024-02-15] MEDS: diphenhydrAMINE HCL 25 MG CAPSULE 50 MG PO (21:46)
[2024-02-15] MEDS: Lithium Carbonate ER 300 MG TABLET.ER 600 MG PO (21:47)
[2024-02-15] MEDS: QUEtiapine Fumarate 300 MG TABLET 600 MG PO (21:47)
[2024-02-15] MEDS: clonazePAM 1 MG TABLET PO (21:47)
[2024-02-16] MEDS: Levothyroxine Sodium 50 MCG TABLET PO (06:59)
[2024-02-16 07:40] VITALS: BP 101/62; PULSE 79; RESP 16; TEMP 36.3; O2SAT 98
[2024-02-16] MEDS: Magnesium Hydrox/Alum Hydrox 30 ML ORAL.SUSP PO (08:35)
[2024-02-16] MEDS: Celecoxib 100 MG CAPSULE PO (09:14)
[2024-02-16] MEDS: amLODIPine Besylate 2.5 MG TABLET 7.5 MG PO (09:14)
[2024-02-16] MEDS: clonazePAM 0.5 MG TABLET PO ×2 (09:15→14:42)
[2024-02-16] MEDS: QUEtiapine Fumarate 100 MG TABLET PO (09:15)
[2024-02-16] MEDS: Lithium Carbonate ER 450 MG TABLET.ER PO (09:16)
[2024-02-16] MEDS: Fluticasone Propionate Nasal 16 GM SPRAY 2 SPRAY NOSTRIL-B (09:17)
--- NOTE | 2024-02-16 11:57 | PC.NURSE ---
hospitalist consult ashlee texted to Andreina Salinas at [phone]
[2024-02-16] MEDS: Ondansetron ODT 8 MG TAB.RAPDIS TRANSLINGU (12:07)
--- NOTE | 2024-02-16 13:00 | P.EN_ITS ---
Event Note Date of Service: 02/16/24 Event Note: 58 year old female with history of hypothyroidism, PTSD, bipolar disorder admitted to psychiatry with consult placed to hospitalist service for evaluation of LUQ/flank pain with nausea and vomiting. Pt has history of nephrolithiasis. Reports has had left flank/LUQ pain ongoing for several days but worsened early this morning. Has had nausea and intermittent vomiting since early this morning. Has had decreased appetite. ALso endorses increased urinary frequency. Denies fevers, chills, diarrhea, constipation, dysuria, hematuria. Vitals stable, afebrile. Repeated BMP this morning with baseline renal function and normal lytes. Reviewed last cbc which was reassuring. Platelets WNL. On exam, there is mild/moderate LUQ ttp without guarding or rebound, no CVA tenderness. She is in no acute distress and is answering questions appropriately with assistance of nancy arriola interpretor. CT abd/pelvis ordered which shows constipation but no splenomegaly or radioopaque stones. [place] dose was just increased yesterday which could be accounting for patient's symptoms. Constipation is present on exam but patient is reporting normal bowel movements and there is no obstruction. I do not believe this is the cause of her nausea and vomiting but may benefit from daily miralax. Can use zofran prn. Discussed with psychiatry. Time Spent With Patient Time: Total time managing care of this patient today ____ minutes.
[2024-02-16 13:16] LABS: Anion Gap 12 (12-20); Blood Urea Nitrogen 16 mg/dL (9-16); Calcium 9.3 mg/dL (8.4-10.2); Carbon Dioxide 28 mmol/L (22-29); Chloride 105 mmol/L (96-108); Creatinine Clr Calc Pharmacy 62.8; Estimated Glomerular Filt Rate > 60; Glucose Random 93 mg/dL (60-115); Potassium 4.7 mmol/L (3.3-5.1); Sodium 140 mmol/L (135-145)
[2024-02-16 13:19] LABS: Appearance Urine Clear; Color Urine Yellow; Glucose Urine UA Negative (Negative); Leukocyte Esterase Urine Negative (Negative); Nitrite Urine Negative (Negative); PH 6.5 (5.0-9.0); Urine Blood Negative (Negative); Urine Ketones Negative (Negative); Urine Protein Negative (Neg-Trace)
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
[2024-02-16] MEDS: diphenhydrAMINE HCL 25 MG CAPSULE 50 MG PO (21:04)
[2024-02-16] MEDS: QUEtiapine Fumarate 300 MG TABLET 600 MG PO (21:05)
[2024-02-16] MEDS: clonazePAM 1 MG TABLET PO (21:05)
[2024-02-16] MEDS: Prazosin HCL 1 MG CAPSULE PO (21:05)
[2024-02-16] MEDS: Acetaminophen 325 MG TABLET 650 MG PO (21:08)
[2024-02-16 21:11] VITALS: BP 147/95; PULSE 84; RESP 16; TEMP 36.6; O2SAT 96
[2024-02-17] MEDS: Levothyroxine Sodium 50 MCG TABLET PO (04:51)
--- NOTE | 2024-02-17 04:53 | PC.NURSE ---
requesting synthroid at this time
[2024-02-17 07:32] VITALS: BP 139/86; PULSE 81; RESP 16; TEMP 36.2; O2SAT 97
[2024-02-17] MEDS: amLODIPine Besylate 2.5 MG TABLET 7.5 MG PO (08:29)
[2024-02-17] MEDS: clonazePAM 0.5 MG TABLET PO ×2 (08:29→14:49)
[2024-02-17] MEDS: QUEtiapine Fumarate 100 MG TABLET PO (08:29)
[2024-02-17] MEDS: Milk of Magnesia 30 ML ORAL.SUSP PO (08:29)
[2024-02-17] MEDS: Fluticasone Propionate Nasal 16 GM SPRAY 2 SPRAY NOSTRIL-B (08:33)
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
[2024-02-17] MEDS: Multivitamin TABLET 1 TAB PO (14:49)
[2024-02-17] MEDS: Acetaminophen 325 MG TABLET 650 MG PO (16:43)
[2024-02-17 20:00] VITALS: BP 138/86; PULSE 78; RESP 18; TEMP 36.4; O2SAT 98
[2024-02-17] MEDS: clonazePAM 1 MG TABLET PO (21:20)
[2024-02-17] MEDS: QUEtiapine Fumarate 300 MG TABLET 600 MG PO (21:20)
[2024-02-17] MEDS: diphenhydrAMINE HCL 25 MG CAPSULE 50 MG PO (21:21)
[2024-02-18 06:00] VITALS: BP 125/99; PULSE 75; RESP 18; O2SAT 98
[2024-02-18] MEDS: Levothyroxine Sodium 50 MCG TABLET PO (06:02)
[2024-02-18] MEDS: clonazePAM 0.5 MG TABLET PO ×2 (07:55→15:38)
[2024-02-18] MEDS: amLODIPine Besylate 2.5 MG TABLET 7.5 MG PO (07:55)
[2024-02-18] MEDS: QUEtiapine Fumarate 100 MG TABLET PO (07:56)
[2024-02-18] MEDS: Multivitamin TABLET 1 TAB PO (07:56)
[2024-02-18] MEDS: Fluticasone Propionate Nasal 16 GM SPRAY 2 SPRAY NOSTRIL-B (07:57)
[2024-02-18] MEDS: Lithium Carbonate ER 300 MG TABLET.ER PO (11:02)
[2024-02-18] MEDS: Lithium Carbonate ER 450 MG TABLET.ER PO (11:02)
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
[2024-02-18 18:52] VITALS: TEMP 36.9
[2024-02-18 20:25] VITALS: BP 129/85; PULSE 88; RESP 18; TEMP 36.7; O2SAT 98
[2024-02-18] MEDS: QUEtiapine Fumarate 300 MG TABLET 600 MG PO (21:12)
[2024-02-18] MEDS: clonazePAM 1 MG TABLET PO (21:13)
[2024-02-18] MEDS: diphenhydrAMINE HCL 25 MG CAPSULE 50 MG PO (21:17)
[2024-02-18] MEDS: Nystatin Cream 15 GM TUBE 1 APPL TOPICAL (21:50)
[2024-02-19] MEDS: Levothyroxine Sodium 50 MCG TABLET PO (06:24)
[2024-02-19 08:30] VITALS: BP 130/80; PULSE 78; RESP 14; O2SAT 97
[2024-02-19] MEDS: Acetaminophen 325 MG TABLET 650 MG PO ×3 (08:39→21:37)
[2024-02-19] MEDS: Lithium Carbonate ER 300 MG TABLET.ER PO (08:40)
[2024-02-19] MEDS: clonazePAM 0.5 MG TABLET PO ×2 (08:40→15:00)
[2024-02-19] MEDS: Multivitamin TABLET 1 TAB PO (08:40)
[2024-02-19] MEDS: Lithium Carbonate ER 450 MG TABLET.ER PO (08:40)
[2024-02-19] MEDS: QUEtiapine Fumarate 100 MG TABLET PO (08:40)
[2024-02-19] MEDS: amLODIPine Besylate 2.5 MG TABLET 7.5 MG PO (08:40)
[2024-02-19] MEDS: Fluticasone Propionate Nasal 16 GM SPRAY 2 SPRAY NOSTRIL-B (09:28)
[2024-02-19] MEDS: Mineral Oil/Petrolatum,White 106 GM Tube 1 APPL TOPICAL (14:00)
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
[2024-02-19 19:55] VITALS: BP 138/74; PULSE 86; RESP 16; TEMP 36.9; O2SAT 97
[2024-02-19] MEDS: QUEtiapine Fumarate 300 MG TABLET 600 MG PO (21:37)
[2024-02-19] MEDS: diphenhydrAMINE HCL 25 MG CAPSULE 50 MG PO (21:37)
[2024-02-19] MEDS: clonazePAM 1 MG TABLET PO (21:37)
[2024-02-20] MEDS: Levothyroxine Sodium 50 MCG TABLET PO (05:33)
[2024-02-20 06:00] VITALS: BP 118/78; PULSE 76; RESP 16; TEMP 36.4; O2SAT 99
[2024-02-20] MEDS: Fluticasone Propionate Nasal 16 GM SPRAY 2 SPRAY NOSTRIL-B (08:00)
[2024-02-20] MEDS: amLODIPine Besylate 2.5 MG TABLET 7.5 MG PO (08:52)
[2024-02-20] MEDS: Acetaminophen 325 MG TABLET 650 MG PO ×2 (08:52→22:18)
[2024-02-20] MEDS: Lithium Carbonate ER 450 MG TABLET.ER PO (08:52)
[2024-02-20] MEDS: Lithium Carbonate ER 300 MG TABLET.ER PO (08:53)
[2024-02-20] MEDS: QUEtiapine Fumarate 100 MG TABLET PO (08:53)
[2024-02-20] MEDS: clonazePAM 0.5 MG TABLET PO ×2 (08:53→13:59)
[2024-02-20] MEDS: Mineral Oil/Petrolatum,White 106 GM Tube 1 APPL TOPICAL (08:54)
[2024-02-20] MEDS: Multivitamin TABLET 1 TAB PO (08:54)
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
[2024-02-20] MEDS: Ondansetron ODT 8 MG TAB.RAPDIS TRANSLINGU (21:12)
[2024-02-20 22:10] VITALS: BP 144/105; PULSE 100; RESP 16; TEMP 36.9; O2SAT 97
[2024-02-20] MEDS: clonazePAM 1 MG TABLET PO (22:17)
[2024-02-20] MEDS: diphenhydrAMINE HCL 25 MG CAPSULE 50 MG PO (22:17)
[2024-02-20] MEDS: OLANZapine 5 MG TABLET PO (22:17)
[2024-02-20] MEDS: QUEtiapine Fumarate 300 MG TABLET 600 MG PO (22:17)
[2024-02-21] MEDS: Levothyroxine Sodium 50 MCG TABLET PO (05:51)
[2024-02-21 07:10] VITALS: BP 123/75; PULSE 77; RESP 16; TEMP 36.4; O2SAT 100
[2024-02-21] MEDS: Lithium Carbonate ER 300 MG TABLET.ER PO (08:06)
[2024-02-21] MEDS: QUEtiapine Fumarate 100 MG TABLET PO (08:06)
[2024-02-21] MEDS: Multivitamin TABLET 1 TAB PO (08:07)
[2024-02-21] MEDS: Lithium Carbonate ER 450 MG TABLET.ER PO (08:07)
[2024-02-21] MEDS: clonazePAM 0.5 MG TABLET PO ×2 (08:07→14:42)
[2024-02-21] MEDS: amLODIPine Besylate 2.5 MG TABLET 7.5 MG PO (08:08)
[2024-02-21] MEDS: Mineral Oil/Petrolatum,White 106 GM Tube 1 APPL TOPICAL (08:11)
[2024-02-21] MEDS: Nystatin Cream 15 GM TUBE 1 APPL TOPICAL (08:13)
[2024-02-21] MEDS: Acetaminophen 325 MG TABLET 650 MG PO (12:38)
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
[2024-02-21 19:50] VITALS: BP 130/80; PULSE 89; RESP 16; TEMP 37.2; O2SAT 98
[2024-02-21] MEDS: clonazePAM 1 MG TABLET PO (20:56)
[2024-02-21] MEDS: QUEtiapine Fumarate 300 MG TABLET 600 MG PO (20:57)
[2024-02-21] MEDS: diphenhydrAMINE HCL 25 MG CAPSULE 50 MG PO (21:00)
[2024-02-22] MEDS: Levothyroxine Sodium 50 MCG TABLET PO (05:40)
[2024-02-22 07:15] VITALS: BP 194/83; PULSE 80; RESP 16; TEMP 36.4; O2SAT 99
[2024-02-22] MEDS: Fluticasone Propionate Nasal 16 GM SPRAY 2 SPRAY NOSTRIL-B (09:21)
[2024-02-22] MEDS: clonazePAM 0.5 MG TABLET PO ×2 (09:22→14:02)
[2024-02-22] MEDS: amLODIPine Besylate 2.5 MG TABLET 7.5 MG PO (09:22)
[2024-02-22] MEDS: Lithium Carbonate ER 450 MG TABLET.ER PO (09:22)
[2024-02-22] MEDS: Multivitamin TABLET 1 TAB PO (09:22)
[2024-02-22] MEDS: Lithium Carbonate ER 300 MG TABLET.ER PO (09:22)
[2024-02-22] MEDS: QUEtiapine Fumarate 100 MG TABLET PO (09:22)
[2024-02-22] MEDS: Acetaminophen 325 MG TABLET 650 MG PO ×2 (09:26→14:02)
[2024-02-22] MEDS: Lidocaine 4 % Patch ADH..PATCH 1 PATCH TRANSDERMA (10:23)
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
[2024-02-22 12:05] VITALS: BP 123/78; PULSE 92; RESP 18; TEMP 36.5; O2SAT 97
[2024-02-22] MEDS: Trolamine Salicylate 10 % Cream 85 GM TUBE 1 APPL TOPICAL (16:11)
[2024-02-22] MEDS: Nicotine Polacrilex 2 MG GUM 4 MG BUCCAL (17:02)
[2024-02-22 19:35] VITALS: BP 125/75; PULSE 59; RESP 15; TEMP 36.6; O2SAT 99
[2024-02-22] MEDS: QUEtiapine Fumarate 300 MG TABLET 600 MG PO (21:03)
[2024-02-22] MEDS: diphenhydrAMINE HCL 25 MG CAPSULE 50 MG PO (21:04)
[2024-02-22] MEDS: clonazePAM 1 MG TABLET PO (21:05)
[2024-02-23] MEDS: Levothyroxine Sodium 50 MCG TABLET PO (05:33)
[2024-02-23 07:32] VITALS: BP 137/80; PULSE 88; RESP 14; TEMP 36.5; O2SAT 97
[2024-02-23] MEDS: amLODIPine Besylate 2.5 MG TABLET 7.5 MG PO (07:50)
[2024-02-23] MEDS: clonazePAM 0.5 MG TABLET PO (07:51)
[2024-02-23] MEDS: QUEtiapine Fumarate 100 MG TABLET PO (07:51)
[2024-02-23] MEDS: Lithium Carbonate ER 450 MG TABLET.ER PO (07:52)
[2024-02-23] MEDS: Multivitamin TABLET 1 TAB PO (07:52)
[2024-02-23] MEDS: Lithium Carbonate ER 300 MG TABLET.ER PO (08:49)
== END 2024-02-23 12:30 | disposition home or self-care (01) | DRG 753 ==
LOC: HO.ED 16:08 → HO.PM5 19:54 → HO.EDOVER 21:05 → HO.PADLT16 21:56
PROVIDERS: Physician Assistant; Physician Assistant Medical; Admitting Provider Psychiatry & Neurology Psychiatry; Emergency Provider Emergency Medicine; Visit Provider Psychiatry & Neurology Psychiatry
DX: F31.10 Bipolar disorder, current episode manic without psychotic features, unspecified (principal); R45.850 Homicidal ideations; E03.9 Hypothyroidism, unspecified; F43.12 Post-traumatic stress disorder, chronic; Z62.810 Personal history of physical and sexual abuse in childhood; Z20.822 Contact with and (suspected) exposure to COVID-19; Z79.890 Hormone replacement therapy; Z79.899 Other long term (current) drug therapy
CPT/HCPCS: 0241U; 36415; 73030; 74176; 80048; 80053; 80178; 80307; 81001; 81003; 81025; 82947; 83735; 84443; 84484; 85025; 87635; 93005; 99285

== ENCOUNTER 2024-01-29 19:43 | Outpatient (BNV) | payer MEDICAID, SELFPAY | END 2024-01-29 20:41 | PROVIDERS: Admitting Provider Psychiatry & Neurology Psychiatry; Emergency Provider Emergency Medicine; Visit Provider Internal Medicine Cardiovascular Disease | DX: R45.850 Homicidal ideations (principal) | CPT/HCPCS: 93010 ==

== ENCOUNTER → 2024-01-29 19:43 | Outpatient (BNV) | payer OTHER, SELFPAY | PROVIDERS: Admitting Provider Psychiatry & Neurology Psychiatry; Emergency Provider Emergency Medicine; Visit Provider Psychiatry & Neurology Psychiatry | DX: F31.13 Bipolar disorder, current episode manic without psychotic features, severe (principal) | CPT/HCPCS: 99231; 99232 ==

== ENCOUNTER 2024-04-28 19:37 | Outpatient (BNV) | payer MEDICAID, SELFPAY | END 2024-05-06 14:23 | PROVIDERS: Admitting Provider Psychiatry & Neurology Psychiatry; Visit Provider Internal Medicine | DX: R07.9 Chest pain, unspecified (principal) | CPT/HCPCS: 93010 ==

== ENCOUNTER 2024-04-28 19:37 | Inpatient (IN) | payer OTHER, SELFPAY ==
--- NOTE | ~2024-04-28 | XR_ITS ---
EXAMINATION: XR CHEST CLINICAL INFORMATION: Congestion upper respiratory symptoms pain. COMPARISON: X-rays of the chest April 2021 and x-ray the right shoulder April 2024 TECHNIQUE: 2 views of the chest were obtained. FINDINGS: Lungs clear. Cardiomediastinal silhouette normal. Bone and joints: Unremarkable. Incidental note made of calcific density in the region the right subacromial space clearly delineated on recent x-ray the right shoulder. Findings compatible with calcific tendinitis/bursitis. XR/XR chest 2V IMPRESSION: 1. No acute disease in the chest. 2. Calcific tendinitis/bursitis of the right shoulder unchanged.
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
--- NOTE | ~2024-04-28 | CT_ITS ---
EXAMINATION: CT CERVICAL SPINE WITHOUT CONTRAST CLINICAL INFORMATION: Cervical radiculopathy. COMPARISON: CT cervical spine dated 04/11/2021. TECHNIQUE: Multidetector helical imaging acquired in the axial plane with generation of reformatted acquisitions. This CT examination was performed using dose optimization techniques as appropriate, variously including the following: *Automated exposure control *Adjustment of mA and/or kV according to patient size (this includes techniques or standardized protocols for targeted exams where dose is matched to indication/reason for exam; i.e. extremities or head) *Use of iterative reconstruction technique DLP: 368 mGy-cm FINDINGS: The disc spaces are well preserved. No significant disc space narrowing evident. There is mild facet arthropathy on the right side with mild right foraminal encroachment at the C3-C4 level. At the C4-C5 level, there are sclerotic facet arthropathy with mild left-sided foraminal narrowing. Facet arthrosis is also visible at the C5-C6 and C6-C7 levels, though without significant foraminal encroachment. No central canal stenosis is evident. No large disc protrusions are seen. The craniovertebral junction is normal. The imaged portions of the brain demonstrate no acute abnormality. The middle ear cavities and mastoid air cells are well aerated. The paraspinal soft tissues are normal. The lung apices are clear. CT/CT cervical spine wo IV con IMPRESSION: Multilevel facet arthropathy with mild foraminal encroachment as described. No significant central canal stenosis or large disc protrusion.
[2024-04-28 20:05] VITALS: BP 113/88; PULSE 93; RESP 18; TEMP 36.6; O2SAT 100
[2024-04-28] MEDS: diphenhydrAMINE HCL 25 MG CAPSULE 50 MG PO (22:56)
[2024-04-28] MEDS: Acetaminophen 325 MG TABLET 650 MG PO (22:57)
[2024-04-28 23:19] VITALS: BMI 27.4
[2024-04-28] MEDS: QUEtiapine Fumarate 300 MG TABLET 600 MG PO (23:50)
[2024-04-28] MEDS: clonazePAM 1 MG TABLET PO (23:50)
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
[2024-04-29] MEDS: Levothyroxine Sodium 50 MCG TABLET PO (05:41)
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
[2024-04-29 09:25] VITALS: BP 144/86; PULSE 91; RESP 16; TEMP 36.4; O2SAT 99
[2024-04-29] MEDS: clonazePAM 1 MG TABLET PO (11:20)
[2024-04-29] MEDS: Lithium Carbonate ER 300 MG TABLET.ER PO (12:49)
--- NOTE | 2024-04-29 17:02 | PC.NURSE ---
Pt signed 3-day, up on 06/03. , SW, UR aware.
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
[2024-04-29] MEDS: diphenhydrAMINE HCL 25 MG CAPSULE 50 MG PO (23:04)
[2024-04-30] MEDS: Acetaminophen 325 MG TABLET 650 MG PO (03:18)
[2024-04-30] MEDS: Levothyroxine Sodium 50 MCG TABLET PO (07:48)
[2024-04-30 08:10] VITALS: BP 127/85; PULSE 100; RESP 18; TEMP 36.4; O2SAT 97
[2024-04-30] MEDS: clonazePAM 1 MG TABLET PO ×2 (08:42→21:07)
[2024-04-30] MEDS: amLODIPine Besylate 2.5 MG TABLET 7.5 MG PO (08:42)
[2024-04-30] MEDS: Lithium Carbonate ER 300 MG TABLET.ER PO ×2 (08:42→21:07)
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
[2024-04-30] MEDS: Lidocaine 4 % Patch ADH..PATCH 1 PATCH TRANSDERMA (09:14)
[2024-04-30] MEDS: Ondansetron ODT 4 MG TAB.RAPDIS TRANSLINGU (11:22)
[2024-04-30] MEDS: risperiDONE 1 MG TABLET PO ×2 (12:12→21:07)
[2024-04-30 20:00] VITALS: BP 161/93; PULSE 89; RESP 16; TEMP 36.4; O2SAT 98
[2024-04-30] MEDS: QUEtiapine Fumarate 300 MG TABLET 600 MG PO (21:07)
[2024-05-01] MEDS: amLODIPine Besylate 2.5 MG TABLET 7.5 MG PO (07:59)
[2024-05-01] MEDS: Lithium Carbonate ER 300 MG TABLET.ER PO ×2 (07:59→21:30)
[2024-05-01] MEDS: clonazePAM 1 MG TABLET PO ×2 (07:59→21:30)
[2024-05-01] MEDS: risperiDONE 1 MG TABLET PO ×2 (07:59→21:29)
[2024-05-01] MEDS: Levothyroxine Sodium 50 MCG TABLET PO (07:59)
[2024-05-01 08:10] VITALS: BP 132/80; PULSE 92; RESP 18; TEMP 36.3; O2SAT 96
[2024-05-01] MEDS: Lidocaine 4 % Patch ADH..PATCH 1 PATCH TRANSDERMA (08:19)
[2024-05-01] MEDS: Magnesium Hydrox/Alum Hydrox 30 ML ORAL.SUSP PO (09:27)
[2024-05-01] MEDS: hydrOXYzine HCL 25 MG TABLET PO ×2 (12:13→18:29)
[2024-05-01] MEDS: Acetaminophen 325 MG TABLET 650 MG PO (12:13)
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
[2024-05-01] MEDS: Nicotine Polacrilex 2 MG GUM 4 MG BUCCAL ×2 (18:38→22:33)
[2024-05-01 20:00] VITALS: BP 156/79; PULSE 95; RESP 16; TEMP 36.5; O2SAT 96
[2024-05-01] MEDS: QUEtiapine Fumarate 300 MG TABLET 600 MG PO (21:29)
[2024-05-01] MEDS: diphenhydrAMINE HCL 25 MG CAPSULE 50 MG PO (21:57)
[2024-05-02] MEDS: Levothyroxine Sodium 50 MCG TABLET PO (06:02)
[2024-05-02 08:00] VITALS: BP 115/75; PULSE 87; RESP 18; TEMP 36.4; O2SAT 97
[2024-05-02 08:32] VITALS: BP 115/75
[2024-05-02] MEDS: amLODIPine Besylate 2.5 MG TABLET 7.5 MG PO (08:32)
[2024-05-02] MEDS: Lithium Carbonate ER 300 MG TABLET.ER PO ×2 (08:32→21:56)
[2024-05-02] MEDS: clonazePAM 1 MG TABLET PO ×2 (08:33→21:56)
[2024-05-02] MEDS: Lidocaine 4 % Patch ADH..PATCH 1 PATCH TRANSDERMA (08:33)
[2024-05-02] MEDS: risperiDONE 1 MG TABLET PO ×2 (08:33→21:56)
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
[2024-05-02] MEDS: Nicotine Polacrilex 2 MG GUM 4 MG BUCCAL (15:43)
[2024-05-02 20:00] VITALS: BP 112/80; PULSE 95; RESP 18; TEMP 36.4; O2SAT 97
[2024-05-02] MEDS: QUEtiapine Fumarate 300 MG TABLET 600 MG PO (21:56)
[2024-05-03] MEDS: diphenhydrAMINE HCL 25 MG CAPSULE 50 MG PO (01:10)
[2024-05-03] MEDS: Levothyroxine Sodium 50 MCG TABLET PO (05:23)
[2024-05-03 08:00] VITALS: BP 147/85; PULSE 89; RESP 18; TEMP 36.5; O2SAT 98
[2024-05-03] MEDS: Acetaminophen 325 MG TABLET 650 MG PO ×2 (08:14→22:57)
[2024-05-03 08:15] VITALS: BP 147/85
[2024-05-03] MEDS: risperiDONE 1 MG TABLET PO (08:15)
[2024-05-03] MEDS: amLODIPine Besylate 2.5 MG TABLET 7.5 MG PO (08:15)
[2024-05-03] MEDS: Lithium Carbonate ER 300 MG TABLET.ER PO ×2 (08:15→22:55)
[2024-05-03] MEDS: clonazePAM 1 MG TABLET PO ×2 (08:15→22:57)
[2024-05-03] MEDS: Lidocaine 4 % Patch ADH..PATCH 1 PATCH TRANSDERMA (08:24)
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
[2024-05-03 20:00] VITALS: BP 141/79; PULSE 93; RESP 18; TEMP 36.4; O2SAT 97
[2024-05-03] MEDS: risperiDONE 2 MG TABLET PO (22:56)
[2024-05-04] MEDS: Levothyroxine Sodium 50 MCG TABLET PO (06:05)
[2024-05-04 08:00] VITALS: BP 142/95; PULSE 88; RESP 20; TEMP 36.3; O2SAT 96
[2024-05-04 08:31] VITALS: BP 132/95
[2024-05-04] MEDS: clonazePAM 1 MG TABLET PO ×2 (08:31→21:20)
[2024-05-04] MEDS: amLODIPine Besylate 2.5 MG TABLET 7.5 MG PO (08:31)
[2024-05-04] MEDS: Lithium Carbonate ER 300 MG TABLET.ER PO ×2 (08:31→21:20)
[2024-05-04] MEDS: risperiDONE 2 MG TABLET PO (08:31)
[2024-05-04] MEDS: Lidocaine 4 % Patch ADH..PATCH 1 PATCH TRANSDERMA (08:33)
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
[2024-05-04 20:00] VITALS: BP 126/73; PULSE 71; TEMP 36.4
[2024-05-04] MEDS: diphenhydrAMINE HCL 25 MG CAPSULE 50 MG PO (21:24)
[2024-05-04] MEDS: Acetaminophen 325 MG TABLET 650 MG PO (21:24)
[2024-05-05] MEDS: Levothyroxine Sodium 50 MCG TABLET PO (06:35)
[2024-05-05 07:00] VITALS: BMI 29.3
[2024-05-05 08:00] VITALS: BP 124/70; PULSE 82; RESP 16; TEMP 36.3; O2SAT 98
[2024-05-05 08:50] VITALS: BP 109/67
[2024-05-05] MEDS: Lithium Carbonate ER 300 MG TABLET.ER PO ×2 (08:50→21:34)
[2024-05-05] MEDS: risperiDONE 2 MG TABLET PO (08:50)
[2024-05-05] MEDS: amLODIPine Besylate 2.5 MG TABLET 7.5 MG PO (08:50)
[2024-05-05] MEDS: clonazePAM 1 MG TABLET PO ×2 (08:50→21:34)
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
[2024-05-05] MEDS: Nicotine Polacrilex 2 MG GUM 4 MG BUCCAL (14:57)
[2024-05-05 19:43] VITALS: BP 143/94; PULSE 112; RESP 16; TEMP 36.5; O2SAT 98
[2024-05-05] MEDS: diphenhydrAMINE HCL 25 MG CAPSULE 50 MG PO (21:34)
--- NOTE | 2024-05-06 | ECG_ITS ---
Test Reason : chest, shoulder, arm pain Blood Pressure : / mmHG Vent. Rate : 084 BPM Atrial Rate : 084 BPM P-R Int : 128 ms QRS Dur : 082 ms QT Int : 370 ms P-R-T Axes : 078 048 066 degrees QTc Int : 437 ms Normal sinus rhythm Normal ECG When compared with ECG of 29-JAN-2024 20:41, Nonspecific T wave abnormality no longer evident in Lateral leads Referred By: Mariah Dhaliwal Electronically Signed By:IZABELLA STONE
[2024-05-06] MEDS: Levothyroxine Sodium 50 MCG TABLET PO (06:47)
[2024-05-06 08:00] VITALS: BP 121/72; PULSE 87; RESP 18; TEMP 36.5; O2SAT 97
[2024-05-06] MEDS: Lidocaine 4 % Patch ADH..PATCH 1 PATCH TRANSDERMA (08:45)
[2024-05-06] MEDS: Paliperidone ER 6 MG TAB.ER.24 PO (08:45)
[2024-05-06] MEDS: Lithium Carbonate ER 300 MG TABLET.ER PO ×2 (08:45→21:47)
[2024-05-06] MEDS: clonazePAM 1 MG TABLET PO ×3 (08:46→21:47)
[2024-05-06] MEDS: amLODIPine Besylate 2.5 MG TABLET 7.5 MG PO (08:46)
[2024-05-06] MEDS: hydrOXYzine HCL 25 MG TABLET PO (09:09)
[2024-05-06] MEDS: Acetaminophen 325 MG TABLET 650 MG PO (13:52)
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
[2024-05-06 20:00] VITALS: BP 143/85; PULSE 87; RESP 16; TEMP 36.4; O2SAT 97
[2024-05-06] MEDS: diphenhydrAMINE HCL 25 MG CAPSULE 50 MG PO (21:47)
[2024-05-06] MEDS: Prazosin HCL 1 MG CAPSULE PO (21:47)
[2024-05-07] MEDS: Levothyroxine Sodium 50 MCG TABLET PO (06:15)
[2024-05-07 08:00] VITALS: BP 140/88; PULSE 92; RESP 18; TEMP 36.4; O2SAT 99
[2024-05-07 08:32] VITALS: BP 140/88
[2024-05-07] MEDS: clonazePAM 1 MG TABLET PO ×3 (08:32→21:11)
[2024-05-07] MEDS: amLODIPine Besylate 2.5 MG TABLET 7.5 MG PO (08:32)
[2024-05-07] MEDS: Lithium Carbonate ER 300 MG TABLET.ER PO ×2 (08:32→21:11)
[2024-05-07] MEDS: Paliperidone ER 6 MG TAB.ER.24 PO (08:32)
[2024-05-07] MEDS: Lidocaine 4 % Patch ADH..PATCH 1 PATCH TRANSDERMA (08:36)
[2024-05-07] MEDS: Acetaminophen 325 MG TABLET 650 MG PO (08:37)
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
[2024-05-07 20:00] VITALS: BP 135/83; PULSE 88; RESP 16; TEMP 36.6; O2SAT 98
[2024-05-07] MEDS: diphenhydrAMINE HCL 25 MG CAPSULE 50 MG PO (21:10)
[2024-05-07] MEDS: Prazosin HCL 1 MG CAPSULE PO (21:11)
[2024-05-08] MEDS: Acetaminophen 325 MG TABLET 650 MG PO ×2 (01:38→11:51)
[2024-05-08] MEDS: Levothyroxine Sodium 50 MCG TABLET PO (06:15)
[2024-05-08 08:00] VITALS: BP 132/75; PULSE 95; RESP 18; TEMP 36.4; O2SAT 98
[2024-05-08 08:14] VITALS: BP 132/75
[2024-05-08] MEDS: amLODIPine Besylate 2.5 MG TABLET 7.5 MG PO (08:14)
[2024-05-08] MEDS: Lithium Carbonate ER 300 MG TABLET.ER PO ×2 (08:14→22:41)
[2024-05-08] MEDS: clonazePAM 1 MG TABLET PO ×3 (08:14→22:41)
[2024-05-08] MEDS: Lidocaine 4 % Patch ADH..PATCH 1 PATCH TRANSDERMA (08:14)
[2024-05-08] MEDS: Paliperidone ER 6 MG TAB.ER.24 PO (08:14)
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
[2024-05-08] MEDS: Ibuprofen 600 MG TABLET PO (15:03)
[2024-05-08] MEDS: Nicotine Polacrilex 2 MG GUM 4 MG BUCCAL (16:49)
[2024-05-08 20:00] VITALS: BP 147/97; PULSE 95; RESP 18; TEMP 36.3; O2SAT 99
[2024-05-08] MEDS: Prazosin HCL 1 MG CAPSULE 2 MG PO (22:41)
[2024-05-08] MEDS: diphenhydrAMINE HCL 25 MG CAPSULE 50 MG PO (22:57)
[2024-05-09] MEDS: Acetaminophen 325 MG TABLET 650 MG PO ×2 (03:37→11:12)
--- NOTE | 2024-05-09 06:52 | PC.NURSE ---
Attempted x 2 to wake patient for 6am med pass, patient waved RN off both times
[2024-05-09 08:00] VITALS: BP 124/68; PULSE 89; RESP 18; TEMP 36.3; O2SAT 97
[2024-05-09] MEDS: Paliperidone ER 6 MG TAB.ER.24 PO (08:47)
[2024-05-09] MEDS: clonazePAM 1 MG TABLET PO ×3 (08:47→22:00)
[2024-05-09] MEDS: Levothyroxine Sodium 50 MCG TABLET PO (08:47)
[2024-05-09] MEDS: amLODIPine Besylate 2.5 MG TABLET 7.5 MG PO (08:47)
[2024-05-09] MEDS: Lithium Carbonate ER 300 MG TABLET.ER PO ×2 (08:47→22:00)
[2024-05-09] MEDS: Lidocaine 4 % Patch ADH..PATCH 1 PATCH TRANSDERMA (08:47)
[2024-05-09 09:16] LABS: Hematocrit 35.8 % (37.0-47.0); Hemoglobin 11.4 g/dl (12.0-16.0); Mean Corpuscular HGB Conc 31.8 g/dl (31.0-35.0); Mean Corpuscular Hemoglobin 29.8 pg (27.0-33.0); Mean Corpuscular Volume 93.5 fL (80.0-98.0); Mean Platelet Volume 10.1 fL (9.4-12.3); Platelet Count 185 X10*3/uL (160-400); Red Blood Count 3.83 X10*6/uL (4.20-5.50); White Blood Count 4.5 X10*3/uL (4.8-10.8)
[2024-05-09 09:28] LABS: Lithium 0.54 mmol/L (0.60-1.20)
[2024-05-09 09:34] LABS: Cholesterol 192 mg/dL (<200); HDL Cholesterol 50 mg/dL (>40); LDL Cholesterol Calculated 106 mg/dL (<100); Triglycerides 181 mg/dL (<150)
[2024-05-09 09:41] LABS: Estimated Average Glucose 111 mg/dL; Hemoglobin A1c % 5.5 % (<6.0)
[2024-05-09 09:44] LABS: Alanine Aminotransferase 47 U/L (0-31); Albumin Level 4.1 g/dL (3.5-5.0); Alkaline Phosphatase 62 U/L (39-117); Anion Gap 13 (12-20); Aspartate Amino Transferase 41 U/L (5-31); Bilirubin Total 0.3 mg/dL (0.0-1.0); Blood Urea Nitrogen 13 mg/dL (9-16); Calcium 9.8 mg/dL (8.4-10.2); Carbon Dioxide 27 mmol/L (22-29); Chloride 106 mmol/L (96-108); Creatinine Clr Calc Pharmacy 86.6; Estimated Glomerular Filt Rate > 60; Glucose Random 129 mg/dL (60-115); Sodium 141 mmol/L (135-145)
[2024-05-09 09:53] LABS: TSH reflex Free T4 4.78 uIU/mL (0.32-4.0)
[2024-05-09 11:00] LABS: Free T4 (Free Thyroxine) 0.68 ng/dL (0.71-1.85)
[2024-05-09 14:42] LABS: Reflex LDLD? No
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
[2024-05-09 20:00] VITALS: BP 143/88; PULSE 97; RESP 18; TEMP 36.3; O2SAT 97
[2024-05-09] MEDS: Prazosin HCL 1 MG CAPSULE 2 MG PO (22:00)
[2024-05-09] MEDS: diphenhydrAMINE HCL 25 MG CAPSULE 50 MG PO (23:13)
[2024-05-10] MEDS: Levothyroxine Sodium 50 MCG TABLET PO (06:14)
[2024-05-10 08:00] VITALS: BP 147/88; PULSE 94; RESP 18; TEMP 36.9; O2SAT 99
[2024-05-10] MEDS: Acetaminophen 325 MG TABLET 650 MG PO (08:34)
[2024-05-10] MEDS: Lidocaine 4 % Patch ADH..PATCH 1 PATCH TRANSDERMA (08:34)
[2024-05-10] MEDS: clonazePAM 1 MG TABLET PO ×3 (08:35→22:06)
[2024-05-10] MEDS: Lithium Carbonate ER 300 MG TABLET.ER PO ×2 (08:35→22:06)
[2024-05-10] MEDS: amLODIPine Besylate 2.5 MG TABLET 7.5 MG PO (08:35)
[2024-05-10] MEDS: Paliperidone ER 6 MG TAB.ER.24 PO (08:35)
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
[2024-05-10 20:00] VITALS: BP 142/82; PULSE 97; RESP 17; TEMP 36.6; O2SAT 97
[2024-05-10] MEDS: diphenhydrAMINE HCL 25 MG CAPSULE 50 MG PO (22:06)
[2024-05-10] MEDS: Prazosin HCL 1 MG CAPSULE 2 MG PO (22:07)
[2024-05-11] MEDS: Levothyroxine Sodium 50 MCG TABLET PO (06:29)
[2024-05-11 08:00] VITALS: BP 137/73; PULSE 90; RESP 18; TEMP 36.3; O2SAT 98
[2024-05-11] MEDS: Lidocaine 4 % Patch ADH..PATCH 1 PATCH TRANSDERMA (08:40)
[2024-05-11] MEDS: amLODIPine Besylate 2.5 MG TABLET 7.5 MG PO (08:41)
[2024-05-11] MEDS: Paliperidone ER 6 MG TAB.ER.24 PO (08:41)
[2024-05-11] MEDS: Acetaminophen 325 MG TABLET 650 MG PO ×2 (08:41→17:56)
[2024-05-11] MEDS: Lithium Carbonate ER 300 MG TABLET.ER PO ×2 (08:41→21:09)
[2024-05-11] MEDS: clonazePAM 1 MG TABLET PO ×3 (08:42→21:09)
[2024-05-11] MEDS: guaiFENesin DM 600/30 1 TAB TAB.ER.12H PO ×2 (09:35→21:09)
[2024-05-11 11:52] LABS: Influenza A PCR NEGATIVE (Negative); Influenza B PCR NEGATIVE (Negative); Resp Syncy Virus RNA Qual PCR NEGATIVE (Negative); SARS COV2 PCR INHOUSE NEGATIVE (Negative)
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
[2024-05-11] MEDS: Albuterol Sulfate 90 MCG 8 GM INHALER 2 PUFF INHALE (13:21)
[2024-05-11] MEDS: Throat Lozenge, Medicated LOZENGE 1 LOZENGE MUCOUS MEM (14:35)
[2024-05-11] MEDS: Ondansetron ODT 4 MG TAB.RAPDIS TRANSLINGU (17:08)
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
[2024-05-11 20:00] VITALS: BP 147/88; PULSE 96; RESP 18; TEMP 36.4; O2SAT 98
[2024-05-11] MEDS: diphenhydrAMINE HCL 25 MG CAPSULE 50 MG PO (21:10)
[2024-05-11] MEDS: Prazosin HCL 1 MG CAPSULE 2 MG PO (21:10)
[2024-05-12] MEDS: Levothyroxine Sodium 50 MCG TABLET PO (06:10)
[2024-05-12] MEDS: Albuterol Sulfate 90 MCG 8 GM INHALER 2 PUFF INHALE ×2 (06:11→17:39)
[2024-05-12 07:00] VITALS: BMI 29.6
[2024-05-12 08:00] VITALS: BP 131/74; PULSE 84; RESP 18; TEMP 36.3; O2SAT 98
[2024-05-12] MEDS: predniSONE 20 MG TABLET 40 MG PO (08:07)
[2024-05-12] MEDS: Lithium Carbonate ER 300 MG TABLET.ER PO ×2 (08:07→20:55)
[2024-05-12] MEDS: clonazePAM 1 MG TABLET PO ×3 (08:07→20:55)
[2024-05-12] MEDS: Paliperidone ER 6 MG TAB.ER.24 PO (08:07)
[2024-05-12] MEDS: Lidocaine 4 % Patch ADH..PATCH 1 PATCH TRANSDERMA (08:07)
[2024-05-12 08:08] VITALS: BP 131/74
[2024-05-12] MEDS: amLODIPine Besylate 2.5 MG TABLET 7.5 MG PO (08:08)
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
[2024-05-12] MEDS: Acetaminophen 325 MG TABLET 650 MG PO (17:39)
[2024-05-12 20:00] VITALS: BP 132/87; PULSE 95; RESP 17; TEMP 36.4; O2SAT 96
[2024-05-12] MEDS: Prazosin HCL 1 MG CAPSULE 2 MG PO (20:55)
[2024-05-12] MEDS: diphenhydrAMINE HCL 25 MG CAPSULE 50 MG PO (20:58)
[2024-05-13] MEDS: Acetaminophen 325 MG TABLET 650 MG PO (01:23)
[2024-05-13] MEDS: Zolpidem Tartrate 5 MG TABLET PO (01:24)
[2024-05-13] MEDS: Levothyroxine Sodium 50 MCG TABLET PO (05:58)
[2024-05-13] MEDS: Paliperidone ER 6 MG TAB.ER.24 PO (07:58)
[2024-05-13 07:59] VITALS: BP 145/80
[2024-05-13] MEDS: clonazePAM 1 MG TABLET PO (07:59)
[2024-05-13] MEDS: predniSONE 20 MG TABLET 40 MG PO (07:59)
[2024-05-13] MEDS: Lithium Carbonate ER 300 MG TABLET.ER PO (07:59)
[2024-05-13] MEDS: amLODIPine Besylate 2.5 MG TABLET 7.5 MG PO (07:59)
[2024-05-13 08:00] VITALS: BP 145/80; PULSE 87; RESP 18; TEMP 36.7; O2SAT 98
[2024-05-13] MEDS: Lidocaine 4 % Patch ADH..PATCH 1 PATCH TRANSDERMA (08:00)
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
== END 2024-05-13 10:56 | disposition home or self-care (01) | DRG 750 ==
PROVIDERS: Admitting Provider Psychiatry & Neurology Psychiatry; Visit Provider Clinical Nurse Specialist Psychiatric/Mental Health, Adult
DX: F25.9 Schizoaffective disorder, unspecified (principal); F43.10 Post-traumatic stress disorder, unspecified; F60.3 Borderline personality disorder; Z20.822 Contact with and (suspected) exposure to COVID-19; Z79.890 Hormone replacement therapy; Z79.899 Other long term (current) drug therapy
CPT/HCPCS: 0241U; 36415; 71046; 72125; 73030; 80053; 80061; 80178; 83036; 84439; 84443; 85027; 93005

== ENCOUNTER → 2024-04-28 19:37 | Outpatient (BNV) | payer MEDICAID, SELFPAY | PROVIDERS: Admitting Provider Psychiatry & Neurology Psychiatry; Visit Provider Student in an Organized Health Care Education/Training Program | DX: Z00.8 Encounter for other general examination (principal) | CPT/HCPCS: 99222; 99499 ==

== ENCOUNTER → 2024-04-28 19:37 | Outpatient (BNV) | payer OTHER, SELFPAY | PROVIDERS: Admitting Provider Psychiatry & Neurology Psychiatry; Visit Provider Social Worker | DX: F25.0 Schizoaffective disorder, bipolar type (principal) | CPT/HCPCS: 99231; 99232 ==

== ENCOUNTER 2024-05-19 20:55 | Inpatient (IN) | payer MEDICAID, OTHER, SELFPAY ==
[2024-05-19 21:01] VITALS: BP 178/90; PULSE 90; O2SAT 97; BMI 29.3
[2024-05-19 21:28] VITALS: BP 123/82; PULSE 87; RESP 20; TEMP 37; O2SAT 97
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
[2024-05-19 23:54] LABS: MANUAL DIFF FLAG NO
[2024-05-20] LABS: Basophils Percent Auto 0.4 % (0-2); Eosinophils Absolute Auto 0.2 X10*3/uL (0.0-0.4); Eosinophils Percent Auto 2.3 % (0-4); Hematocrit 35.5 % (37.0-47.0); Hemoglobin 11.7 g/dl (12.0-16.0); Imm Gran Abs Auto 0.04 X10*3/uL (0.00-0.03); Imm Gran Pct Auto 0.6 % (0.0-0.4); Lymphocytes Absolute Auto 2.6 X10*3/uL (1.2-4.9); Mean Corpuscular Hemoglobin 30.2 pg (27.0-33.0); Mean Corpuscular Volume 91.5 fL (80.0-98.0); Mean Platelet Volume 9.4 fL (9.4-12.3); Monocytes Absolute Auto 0.6 X10*3/uL (0.1-1.2); Monocytes Percent Auto 8.2 % (2-11); Neutrophils Absolute Auto 3.7 x10*3/uL (2.0-8.3); Neutrophils Percent Auto 51.5 % (45-73); Platelet Count 254 X10*3/uL (160-400); Red Blood Count 3.88 X10*6/uL (4.20-5.50); Red Cell Distribution Width 14.1 % (11.0-16.0); White Blood Count 7.1 X10*3/uL (4.8-10.8)
[2024-05-20 00:05] LABS: Lithium 0.24 mmol/L (0.60-1.20)
[2024-05-20 00:11] LABS: Ethanol < 10 mg/dL
[2024-05-20 00:13] LABS: Alanine Aminotransferase 26 U/L (0-31); Albumin Level 4.1 g/dL (3.5-5.0); Alkaline Phosphatase 72 U/L (39-117); Anion Gap 12 (12-20); Aspartate Amino Transferase 24 U/L (5-31); Bilirubin Total 0.2 mg/dL (0.0-1.0); Blood Urea Nitrogen 13 mg/dL (9-16); Calcium 9.7 mg/dL (8.4-10.2); Carbon Dioxide 25 mmol/L (22-29); Chloride 106 mmol/L (96-108); Creatinine Clr Calc Pharmacy 87.1; Estimated Glomerular Filt Rate > 60; Glucose Random 139 mg/dL (60-115); Potassium 3.9 mmol/L (3.3-5.1); Sodium 139 mmol/L (135-145)
[2024-05-20] MEDS: QUEtiapine Fumarate 300 MG TABLET 600 MG PO (00:16)
[2024-05-20] MEDS: clonazePAM 1 MG TABLET PO ×3 (00:16→23:21)
--- NOTE | 2024-05-20 03:35 | PC.NURSE ---
pt resting comfortably at this time, breathing even and unlabored, no apparent distress noted. sitter at bedside. call reyes w/in reach
[2024-05-20 04:47] VITALS: RESP 16
--- NOTE | 2024-05-20 06:53 | PC.NURSE ---
14 pill bottles in bag in POD locker. 1 pill bottle, controlled med, in pharmacy
--- NOTE | 2024-05-20 07:06 | PC.NURSE ---
Assumed care of patient at 0645. No signs of distress observed and breathing is even and unlabored. Patient is observed resting quietly in their bed.
--- NOTE | 2024-05-20 10:56 | PC.NURSE ---
EKG Refusal PT refusing EKG
--- NOTE | 2024-05-20 10:56 | PC.NURSE ---
Lab Refusal PT refusing to provide a urine sample.
[2024-05-20] MEDS: QUEtiapine Fumarate 100 MG TABLET PO (11:50)
[2024-05-20] MEDS: predniSONE 20 MG TABLET 40 MG PO (11:50)
[2024-05-20] MEDS: Multivitamin TABLET 1 TAB PO (11:50)
[2024-05-20] MEDS: Levothyroxine Sodium 50 MCG TABLET PO (11:50)
[2024-05-20] MEDS: Paliperidone ER 3 MG TAB.ER.24 PO (11:50)
[2024-05-20] MEDS: Lithium Carbonate ER 300 MG TABLET.ER PO (11:50)
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
[2024-05-20] MEDS: diphenhydrAMINE HCL 25 MG CAPSULE PO (23:17)
[2024-05-21] MEDS: Lithium Carbonate ER 450 MG TABLET.ER 900 MG PO (00:13)
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
[2024-05-21 08:29] VITALS: BP 132/81; PULSE 86; RESP 18; TEMP 36.1; O2SAT 99
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
[2024-05-21] MEDS: QUEtiapine Fumarate 100 MG TABLET PO (11:30)
[2024-05-21] MEDS: Levothyroxine Sodium 50 MCG TABLET PO (11:30)
[2024-05-21] MEDS: Multivitamin TABLET 1 TAB PO (11:30)
[2024-05-21] MEDS: clonazePAM 1 MG TABLET PO ×2 (11:30→21:52)
[2024-05-21] MEDS: Paliperidone ER 6 MG TAB.ER.24 PO (11:30)
[2024-05-21] MEDS: diphenhydrAMINE HCL 25 MG CAPSULE PO (21:54)
[2024-05-22] MEDS: Levothyroxine Sodium 50 MCG TABLET PO (06:58)
[2024-05-22 08:34] VITALS: RESP 18
[2024-05-22] MEDS: clonazePAM 1 MG TABLET PO ×2 (11:04→20:17)
[2024-05-22] MEDS: Multivitamin TABLET 1 TAB PO (11:04)
[2024-05-22] MEDS: QUEtiapine Fumarate 100 MG TABLET PO (11:04)
[2024-05-22] MEDS: Paliperidone ER 6 MG TAB.ER.24 PO (11:04)
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
[2024-05-22 20:00] VITALS: BP 170/89; PULSE 93; RESP 17; TEMP 36.3; O2SAT 98
[2024-05-22] MEDS: diphenhydrAMINE HCL 25 MG CAPSULE PO (20:17)
[2024-05-22] MEDS: Lithium Carbonate ER 450 MG TABLET.ER 900 MG PO (20:17)
--- NOTE | 2024-05-23 | ECG_ITS ---
Test Reason : R/O QTc prolongation Blood Pressure : / mmHG Vent. Rate : 098 BPM Atrial Rate : 098 BPM P-R Int : 114 ms QRS Dur : 086 ms QT Int : 342 ms P-R-T Axes : 071 046 109 degrees QTc Int : 436 ms Normal sinus rhythm Nonspecific T wave abnormality Abnormal ECG When compared with ECG of 06-MAY-2024 14:23, Nonspecific T wave abnormality now evident in Inferior leads Nonspecific T wave abnormality now evident in Lateral leads Referred By: Mariah Dhaliwal Electronically Signed By:IZABELLA STONE
[2024-05-23] MEDS: Levothyroxine Sodium 50 MCG TABLET PO (06:08)
[2024-05-23 08:00] VITALS: BP 140/77; PULSE 97; RESP 18; TEMP 36.4; O2SAT 99
[2024-05-23] MEDS: QUEtiapine Fumarate 100 MG TABLET PO (08:44)
[2024-05-23] MEDS: clonazePAM 1 MG TABLET PO ×2 (08:44→21:07)
[2024-05-23] MEDS: Paliperidone ER 6 MG TAB.ER.24 PO (08:44)
[2024-05-23] MEDS: Multivitamin TABLET 1 TAB PO (08:44)
--- NOTE | 2024-05-23 16:27 | P.PNPSI_ITS ---
Subjective Subjective Date of Service: 05/23/24 Reason For Visit: Schizoaffective disorder, bipolar type Subjective Notes: Section 12B Healthcare Proxy: No Guardianship: No Medical Problems Affecting Mental Status: No Interim History: Pt acknowledges she paid her daughter to help her discharge from last admission. Reports this went poorly as daughter has been using substances and the shared living situation did not work out. Wanting to return to [place] to the family home at this time. Presents with irritability, agitation, lability. Currently no housing and no plan except to return to family home in [place]. Med compliance upon discharge questionable. Section 12B to 05/25. Medication Compliance: Intermittent Side effects from medications: No Attending Groups: No Review of Systems Acute medical concerns: No Medical Review of Systems: unchanged Review of Systems Review of Systems Yes all other systems are reviewed and are negative Mental Status Exam Mental Status Exam Patient Appearance: Fatigued and Disheveled Patient Orientation: Person, Place and Situation Level of Consciousness: Alert Patient Behavior: Guarded, Talkative, Hyperactive, Suspicious, Distractible, Good Eye Contact and Impulsive Mood Description: Labile Affect Description: Labile and Angry Patient Cognition Impaired: No Ability to Follow Directions: Fair Speech Pattern: Spontaneous Speech and Loud Memory Description: Episodic Impaired Hallucinations: None Delusions: Paranoid Ideation Thought Process: Rumination Thought Content: positive for Circumstantial Depressive Symptoms: Loss of Energy and Difficulty Concentrating Abnormal Motor Activity Signs and Symptoms: Restlessness Judgement: Poor Diagnostics Vital Signs (24Hr): Vital Signs - 24 hr 05/22/24 20:00 05/23/24 08:00 Temperature 97.4 F 97.5 F Pulse Rate 93 97 Respiratory Rate 17 18 Blood Pressure 170/89 H 140/77 H Pulse Oximetry 98 99 Oxygen Delivery Method Room Air Room Air BMI result Body Mass Index 29.3 Labs 05/19/24 23:48 05/19/24 23:48 Medications Medications Current Medications Acetaminophen (Acetaminophen 325 Mg Tablet) 650 mg PO Q6H PRN PRN Reason: Headache/Pain Mild Scale (1-3) Al Hydroxide/Mg Hydroxide (Magnesium Hydrox/Alum Hydrox 30 Ml Oral.Susp) 30 ml PO Q6H PRN PRN Reason: Heartburn/Nausea Chlorpromazine HCl (Chlorpromazine Hcl 100 Mg Tablet) 100 mg PO TID PRN PRN Reason: agitation, psychosis Clonazepam (Clonazepam 1 Mg Tablet) 1 mg PO BID [facility] Last Admin: 05/23/24 08:44 Dose: 1 mg Diphenhydramine HCl (Diphenhydramine Hcl 25 Mg Capsule) 25 mg PO BEDTIME PRN PRN Reason: insomnia Last Admin: 05/22/24 20:17 Dose: 25 mg Hydroxyzine HCl (Hydroxyzine Hcl 25 Mg Tablet) 25 mg PO Q6H PRN PRN Reason: Anxiety Levothyroxine Sodium (Levothyroxine Sodium 50 Mcg Tablet) 50 mcg PO DAILY@0600 [facility] Last Admin: 05/23/24 06:08 Dose: 50 mcg [place] Carbonate ([place] Carbonate Er 450 Mg Tablet.Er) 900 mg PO BEDTIME [facility] Last Admin: 05/22/24 20:17 Dose: 900 mg Lorazepam (Lorazepam 1 Mg Tablet) 1 mg PO Q6H PRN PRN Reason: agitation Magnesium Hydroxide (Milk Of Magnesia 30 Ml Oral.Susp) 30 ml PO DAILY PRN PRN Reason: Constipation Multivitamins/Vitamin C (Multivitamin Tablet) 1 tab PO DAILY [facility] Last Admin: 05/23/24 08:44 Dose: 1 tab Nicotine (Nicotine 21 Mg Patch.Td24) 21 mg TRANSDERMA DAILY PRN PRN Reason: nicotine cravings Nicotine Polacrilex (Nicotine Polacrilex 2 Mg Gum) 4 mg BUCCAL Q2H PRN PRN Reason: Nicotine Cravings Pt Own (Quetiapine (300 Mg)) 600 mg PO BEDTIME [facility] Last Admin: 05/22/24 20:17 Dose: 600 mg Paliperidone (Paliperidone Er 6 Mg Tab.Er.24) 6 mg PO DAILY [facility] Last Admin: 05/23/24 08:44 Dose: 6 mg Prazosin HCl (Prazosin Hcl 1 Mg Capsule) 2 mg PO BEDTIME [facility]; Protocol Last Admin: 05/23/24 00:11 Dose: Not Given Quetiapine Fumarate (Quetiapine Fumarate 100 Mg Tablet) 100 mg PO DAILY [facility] Last Admin: 05/23/24 08:44 Dose: 100 mg Allergies Allergies Allergy/AdvReac Type Severity Reaction Status Date / Time haloperidol [From HALDOL] Allergy Intermediate LOWERS Verified 05/19/24 21:16 HEART RATE trazodone AdvReac Intermediate Hives Verified 05/19/24 21:16 Assessment & Plan Assessment & Plan (1) Schizoaffective disorder: Qualifiers: Schizoaffective disorder type: unspecified Qualified Code(s): F25.9 - Schizoaffective disorder, unspecified Status: Acute Code(s): F25.9 - Schizoaffective disorder, unspecified (2) Chronic post-traumatic stress disorder (PTSD): Status: Acute Code(s): F43.12 - Post-traumatic stress disorder, chronic Plan - Admit to inpatient psychiatry - Collateral information from family and providers. - Milieu treatment and group therapy. - Medications: Restart home medications. - Social work evaluation. - Disposition planning. 05/22: continue current management and treatment plan. 05/23: Section 12B to 05/25. Increase Invega to 9 mg daily Possible Section 7. Reason for continued inpatient stay Substantial Risk for: rapid decompensation Time Spent With Patient Time: Total time managing care of this patient today ____ minutes.
[2024-05-23 20:00] VITALS: BP 125/71; PULSE 98; RESP 18; O2SAT 98
[2024-05-23] MEDS: diphenhydrAMINE HCL 25 MG CAPSULE PO (21:08)
--- NOTE | 2024-05-24 06:14 | PC.NURSE ---
Pt refused levothyroxine at this time, pt told RN to leave pt alone
[2024-05-24 09:10] VITALS: BP 126/80; PULSE 95; RESP 18; TEMP 36.4; O2SAT 98
[2024-05-24] MEDS: clonazePAM 1 MG TABLET PO ×2 (09:29→20:22)
[2024-05-24] MEDS: QUEtiapine Fumarate 100 MG TABLET PO (09:29)
--- NOTE | 2024-05-24 16:57 | HO.PSYCHPN ---
Subjective Subjective Date of Service: 05/24/24 Reason For Visit: Schizoaffective disorder, bipolar type Subjective Notes: Section 12B Healthcare Proxy: No Guardianship: No Medical Problems Affecting Mental Status: No Interim History: Visable in milieu. No issues of behavioral dyscontrol. Episodic agitation Asking for discharge with no solid plan for safety upon leaving. External blaming of others for current situation/sx. No insight into her responsibilities for self care. Medication Compliance: Intermittent Side effects from medications: No Attending Groups: No Review of Systems Acute medical concerns: No Medical Review of Systems: unchanged Review of Systems Review of Systems Yes all other systems are reviewed and are negative Mental Status Exam Mental Status Exam Patient Appearance: Fatigued and Disheveled Patient Orientation: Person, Place and Situation Level of Consciousness: Alert Patient Behavior: Guarded, Talkative, Hyperactive, Suspicious, Distractible, Good Eye Contact and Impulsive Mood Description: Labile Affect Description: Labile and Angry Patient Cognition Impaired: No Ability to Follow Directions: Fair Speech Pattern: Spontaneous Speech and Loud Memory Description: Episodic Impaired Hallucinations: None Delusions: Paranoid Ideation Thought Process: Rumination Thought Content: positive for Circumstantial Depressive Symptoms: Loss of Energy and Difficulty Concentrating Abnormal Motor Activity Signs and Symptoms: Restlessness Judgement: Poor Diagnostics Vital Signs (24Hr): Vital Signs - 24 hr 05/23/24 20:00 05/24/24 09:10 Temperature 97.5 F Pulse Rate 98 95 Respiratory Rate 18 18 Blood Pressure 125/71 126/80 Pulse Oximetry 98 98 Oxygen Delivery Method Room Air Room Air BMI result Body Mass Index 29.3 Labs 05/19/24 23:48 05/19/24 23:48 Medications Medications Current Medications Acetaminophen (Acetaminophen 325 Mg Tablet) 650 mg PO Q6H PRN PRN Reason: Headache/Pain Mild Scale (1-3) Al Hydroxide/Mg Hydroxide (Magnesium Hydrox/Alum Hydrox 30 Ml Oral.Susp) 30 ml PO Q6H PRN PRN Reason: Heartburn/Nausea Chlorpromazine HCl (Chlorpromazine Hcl 100 Mg Tablet) 100 mg PO TID PRN PRN Reason: agitation, psychosis Clonazepam (Clonazepam 1 Mg Tablet) 1 mg PO BID [facility] Last Admin: 05/24/24 09:29 Dose: 1 mg Diphenhydramine HCl (Diphenhydramine Hcl 25 Mg Capsule) 25 mg PO BEDTIME PRN PRN Reason: insomnia Last Admin: 05/23/24 21:08 Dose: 25 mg Hydroxyzine HCl (Hydroxyzine Hcl 25 Mg Tablet) 25 mg PO Q6H PRN PRN Reason: Anxiety Levothyroxine Sodium (Levothyroxine Sodium 50 Mcg Tablet) 50 mcg PO DAILY@0600 [facility] Last Admin: 05/24/24 09:31 Dose: Not Given [place] Carbonate ([place] Carbonate Er 450 Mg Tablet.Er) 900 mg PO BEDTIME [facility] Last Admin: 05/23/24 22:03 Dose: Not Given Lorazepam (Lorazepam 1 Mg Tablet) 1 mg PO Q6H PRN PRN Reason: agitation Magnesium Hydroxide (Milk Of Magnesia 30 Ml Oral.Susp) 30 ml PO DAILY PRN PRN Reason: Constipation Multivitamins/Vitamin C (Multivitamin Tablet) 1 tab PO DAILY [facility] Last Admin: 05/24/24 09:31 Dose: Not Given Nicotine (Nicotine 21 Mg Patch.Td24) 21 mg TRANSDERMA DAILY PRN PRN Reason: nicotine cravings Nicotine Polacrilex (Nicotine Polacrilex 2 Mg Gum) 4 mg BUCCAL Q2H PRN PRN Reason: Nicotine Cravings Pt Own (Quetiapine (300 Mg)) 600 mg PO BEDTIME [facility] Last Admin: 05/23/24 21:07 Dose: 600 mg Paliperidone (Paliperidone Er 9 Mg Tab.Er.24) 9 mg PO DAILY [facility] Last Admin: 05/24/24 09:31 Dose: Not Given Prazosin HCl (Prazosin Hcl 1 Mg Capsule) 2 mg PO BEDTIME [facility]; Protocol Last Admin: 05/23/24 22:03 Dose: Not Given Quetiapine Fumarate (Quetiapine Fumarate 100 Mg Tablet) 100 mg PO DAILY [facility] Last Admin: 05/24/24 09:29 Dose: 100 mg Allergies Allergies Allergy/AdvReac Type Severity Reaction Status Date / Time haloperidol [From HALDOL] Allergy Intermediate LOWERS Verified 05/19/24 21:16 HEART RATE trazodone AdvReac Intermediate Hives Verified 05/19/24 21:16 Assessment & Plan Assessment & Plan (1) Schizoaffective disorder: Qualifiers: Schizoaffective disorder type: unspecified Qualified Code(s): F25.9 - Schizoaffective disorder, unspecified Status: Acute Code(s): F25.9 - Schizoaffective disorder, unspecified (2) Chronic post-traumatic stress disorder (PTSD): Status: Acute Code(s): F43.12 - Post-traumatic stress disorder, chronic Plan - Admit to inpatient psychiatry - Collateral information from family and providers. - Milieu treatment and group therapy. - Medications: Restart home medications. - Social work evaluation. - Disposition planning. 05/22: continue current management and treatment plan. 05/23: Section 12B to 05/25. Increase Invega to 9 mg daily Possible Section 7. 05/24: Continue tx Pt asking to leave, however without safe plan for community living. Reason for continued inpatient stay Substantial Risk for: rapid decompensation Time Spent With Patient Time: Total time managing care of this patient today ____ minutes.
[2024-05-24 20:00] VITALS: BP 173/100; PULSE 95; TEMP 36.4; O2SAT 99
[2024-05-24] MEDS: Acetaminophen 325 MG TABLET 650 MG PO (20:22)
[2024-05-24] MEDS: Prazosin HCL 1 MG CAPSULE 2 MG PO (20:22)
[2024-05-24] MEDS: diphenhydrAMINE HCL 25 MG CAPSULE PO (20:23)
[2024-05-24] MEDS: Lithium Carbonate ER 450 MG TABLET.ER 900 MG PO (21:11)
[2024-05-25 08:00] VITALS: BP 131/65; PULSE 81; RESP 18; TEMP 36.3; O2SAT 98
[2024-05-25] MEDS: Levothyroxine Sodium 50 MCG TABLET PO (09:06)
[2024-05-25] MEDS: Paliperidone ER 9 MG TAB.ER.24 PO (09:06)
[2024-05-25] MEDS: QUEtiapine Fumarate 100 MG TABLET PO (09:06)
[2024-05-25] MEDS: clonazePAM 1 MG TABLET PO ×2 (09:06→21:16)
[2024-05-25] MEDS: Multivitamin TABLET 1 TAB PO (09:06)
--- NOTE | 2024-05-25 10:53 | P.PNPSI_ITS ---
Subjective Subjective Date of Service: 05/25/24 Reason For Visit: Schizoaffective disorder, bipolar type Subjective Notes: Section 7 Healthcare Proxy: No Guardianship: No Medical Problems Affecting Mental Status: No Interim History: Section VII filed for consideration for longer treatment due to risk in community, med noncompliance and sx exacerbation. Pt expressed anger, blaming. No ability to see her role in current issues. Discussed changing Invega to Sustenna THAO. She refuses. Intermittent refusal of medications. Review of her seven [facility] admissions since 06/11/23, noncompliance, threats in community, violence and threats of violence in community. Expresses that she is not responsible for her behaviors or actions, focus on external precipitants Pt wants to return to the family home in [place]. She has no plan. Upon further discussion, she reports her friend can take her to the bank and to the airport. She reports her daughter will receive her but cannot come to [place] to travel with her as she is in an ankle bracelet and cannot leave [place]. Team received a call from pt's friend, Pranay Cruz [phone]. He will come in to meet with team on 05/27 and is willing to help pt travel to [place]. Pt will allow contact with daughter, Swetha Desai [phone] Medication Compliance: Intermittent Side effects from medications: No Attending Groups: No Review of Systems Acute medical concerns: No Medical Review of Systems: unchanged Review of Systems Review of Systems Yes all other systems are reviewed and are negative Mental Status Exam Mental Status Exam Patient Appearance: Fatigued and Disheveled Patient Orientation: Person, Place and Situation Level of Consciousness: Alert Patient Behavior: Guarded, Talkative, Hyperactive, Suspicious, Distractible, Good Eye Contact and Impulsive Mood Description: Labile Affect Description: Labile and Angry Patient Cognition Impaired: No Ability to Follow Directions: Fair Speech Pattern: Spontaneous Speech and Loud Memory Description: Episodic Impaired Hallucinations: None Delusions: Paranoid Ideation Thought Process: Rumination Thought Content: positive for Circumstantial Depressive Symptoms: Loss of Energy and Difficulty Concentrating Abnormal Motor Activity Signs and Symptoms: Restlessness Judgement: Poor Diagnostics Vital Signs (24Hr): Vital Signs - 24 hr 05/24/24 20:00 Temperature 97.5 F Pulse Rate 95 Blood Pressure 173/100 H Pulse Oximetry 99 Oxygen Delivery Method Room Air BMI result Body Mass Index 29.3 Labs 05/19/24 23:48 05/19/24 23:48 Medications Medications Current Medications Acetaminophen (Acetaminophen 325 Mg Tablet) 650 mg PO Q6H PRN PRN Reason: Headache/Pain Mild Scale (1-3) Last Admin: 05/24/24 20:22 Dose: 650 mg Al Hydroxide/Mg Hydroxide (Magnesium Hydrox/Alum Hydrox 30 Ml Oral.Susp) 30 ml PO Q6H PRN PRN Reason: Heartburn/Nausea Chlorpromazine HCl (Chlorpromazine Hcl 100 Mg Tablet) 100 mg PO TID PRN PRN Reason: agitation, psychosis Clonazepam (Clonazepam 1 Mg Tablet) 1 mg PO BID [facility] Last Admin: 05/25/24 09:06 Dose: 1 mg Diphenhydramine HCl (Diphenhydramine Hcl 25 Mg Capsule) 25 mg PO BEDTIME PRN PRN Reason: insomnia Last Admin: 05/24/24 20:23 Dose: 25 mg Hydroxyzine HCl (Hydroxyzine Hcl 25 Mg Tablet) 25 mg PO Q6H PRN PRN Reason: Anxiety Levothyroxine Sodium (Levothyroxine Sodium 50 Mcg Tablet) 50 mcg PO DAILY@0600 [facility] Last Admin: 05/25/24 09:06 Dose: 50 mcg [place] Carbonate ([place] Carbonate Er 450 Mg Tablet.Er) 900 mg PO BEDTIME [facility] Last Admin: 05/24/24 21:11 Dose: 900 mg Lorazepam (Lorazepam 1 Mg Tablet) 1 mg PO Q6H PRN PRN Reason: agitation Magnesium Hydroxide (Milk Of Magnesia 30 Ml Oral.Susp) 30 ml PO DAILY PRN PRN Reason: Constipation Multivitamins/Vitamin C (Multivitamin Tablet) 1 tab PO DAILY [facility] Last Admin: 05/25/24 09:06 Dose: 1 tab Nicotine (Nicotine 21 Mg Patch.Td24) 21 mg TRANSDERMA DAILY PRN PRN Reason: nicotine cravings Nicotine Polacrilex (Nicotine Polacrilex 2 Mg Gum) 4 mg BUCCAL Q2H PRN PRN Reason: Nicotine Cravings Pt Own (Quetiapine (300 Mg)) 600 mg PO BEDTIME [facility] Last Admin: 05/24/24 20:23 Dose: 600 mg Paliperidone (Paliperidone Er 9 Mg Tab.Er.24) 9 mg PO DAILY [facility] Last Admin: 05/25/24 09:06 Dose: 9 mg Prazosin HCl (Prazosin Hcl 1 Mg Capsule) 2 mg PO BEDTIME [facility]; Protocol Last Admin: 05/24/24 20:22 Dose: 2 mg Quetiapine Fumarate (Quetiapine Fumarate 100 Mg Tablet) 100 mg PO DAILY [facility] Last Admin: 05/25/24 09:06 Dose: 100 mg Allergies Allergies Allergy/AdvReac Type Severity Reaction Status Date / Time haloperidol [From HALDOL] Allergy Intermediate LOWERS Verified 05/19/24 21:16 HEART RATE trazodone AdvReac Intermediate Hives Verified 05/19/24 21:16 Assessment & Plan Assessment & Plan (1) Schizoaffective disorder: Qualifiers: Schizoaffective disorder type: unspecified Qualified Code(s): F25.9 - Schizoaffective disorder, unspecified Status: Acute Code(s): F25.9 - Schizoaffective disorder, unspecified (2) Chronic post-traumatic stress disorder (PTSD): Status: Acute Code(s): F43.12 - Post-traumatic stress disorder, chronic Plan - Admit to inpatient psychiatry - Collateral information from family and providers. - Milieu treatment and group therapy. - Medications: Restart home medications. - Social work evaluation. - Disposition planning. 05/22: continue current management and treatment plan. 05/23: Section 12B to 05/25. Increase Invega to 9 mg daily Possible Section 7. 05/25: Section 7 application filed. Continue regime Pt wanting to return to [place] to family and family home. We will attempt to work with this request if supports are in place and a safe plan can be developed. Reason for continued inpatient stay Substantial Risk for: rapid decompensation Time Spent With Patient Time: Total time managing care of this patient today ____ minutes.
[2024-05-25] MEDS: Nicotine Polacrilex 2 MG GUM 4 MG BUCCAL ×2 (12:28→22:55)
[2024-05-25] MEDS: Acetaminophen 325 MG TABLET 650 MG PO (15:47)
[2024-05-25] MEDS: LORazepam 1 MG TABLET PO ×2 (15:47→22:56)
[2024-05-25 20:00] VITALS: BP 170/63; PULSE 96; RESP 18; TEMP 36.3; O2SAT 97
[2024-05-25] MEDS: Lithium Carbonate ER 450 MG TABLET.ER 900 MG PO (21:16)
[2024-05-25] MEDS: Prazosin HCL 1 MG CAPSULE 2 MG PO (21:17)
[2024-05-25] MEDS: diphenhydrAMINE HCL 25 MG CAPSULE PO (21:17)
[2024-05-26] MEDS: Levothyroxine Sodium 50 MCG TABLET PO (06:14)
[2024-05-26 07:00] VITALS: BMI 29.8
[2024-05-26 08:00] VITALS: BP 115/62; PULSE 84; RESP 18; TEMP 36.4; O2SAT 98
[2024-05-26] MEDS: Multivitamin TABLET 1 TAB PO (09:17)
[2024-05-26] MEDS: Paliperidone ER 9 MG TAB.ER.24 PO (09:17)
[2024-05-26] MEDS: clonazePAM 1 MG TABLET PO ×2 (09:17→20:35)
[2024-05-26] MEDS: QUEtiapine Fumarate 100 MG TABLET PO (09:17)
--- NOTE | 2024-05-26 10:35 | HO.PSYCHPN ---
Subjective Subjective Date of Service: 05/26/24 Reason For Visit: Schizoaffective disorder, bipolar type Interim History: Met with patient; discussed with team; reviewed chart remains with poor insight and says i want to leave and not open to discussing. She asks for Clonazepam to go back to [facility] but accepts this decision will be deferred to primary team provider tomorrow. Mental Status Exam Mental Status Exam Patient Appearance: Fatigued and Disheveled Patient Orientation: Person, Place and Situation Level of Consciousness: Alert Patient Behavior: Guarded, Talkative, Hyperactive, Suspicious, Distractible, Good Eye Contact and Impulsive Mood Description: Labile Affect Description: Labile and Angry Patient Cognition Impaired: No Ability to Follow Directions: Fair Speech Pattern: Spontaneous Speech and Loud Memory Description: Episodic Impaired Hallucinations: None Delusions: Paranoid Ideation Thought Process: Rumination Thought Content: positive for Circumstantial Depressive Symptoms: Loss of Energy and Difficulty Concentrating Abnormal Motor Activity Signs and Symptoms: Restlessness Judgement: Poor Diagnostics Vital Signs (24Hr): Vital Signs - 24 hr 05/25/24 20:00 05/26/24 08:00 Temperature 97.3 F 97.6 F Pulse Rate 96 84 Respiratory Rate 18 18 Blood Pressure 170/63 H 115/62 Pulse Oximetry 97 98 Oxygen Delivery Method Room Air Room Air BMI result Body Mass Index 29.8 Labs 05/19/24 23:48 05/19/24 23:48 Medications Medications Current Medications Acetaminophen (Acetaminophen 325 Mg Tablet) 650 mg PO Q6H PRN PRN Reason: Headache/Pain Mild Scale (1-3) Last Admin: 05/25/24 15:47 Dose: 650 mg Al Hydroxide/Mg Hydroxide (Magnesium Hydrox/Alum Hydrox 30 Ml Oral.Susp) 30 ml PO Q6H PRN PRN Reason: Heartburn/Nausea Chlorpromazine HCl (Chlorpromazine Hcl 100 Mg Tablet) 100 mg PO TID PRN PRN Reason: agitation, psychosis Clonazepam (Clonazepam 1 Mg Tablet) 1 mg PO BID [facility] Last Admin: 05/26/24 09:17 Dose: 1 mg Diphenhydramine HCl (Diphenhydramine Hcl 25 Mg Capsule) 25 mg PO BEDTIME PRN PRN Reason: insomnia Last Admin: 05/25/24 21:17 Dose: 25 mg Hydroxyzine HCl (Hydroxyzine Hcl 25 Mg Tablet) 25 mg PO Q6H PRN PRN Reason: Anxiety Levothyroxine Sodium (Levothyroxine Sodium 50 Mcg Tablet) 50 mcg PO DAILY@0600 [facility] Last Admin: 05/26/24 06:14 Dose: 50 mcg [place] Carbonate ([place] Carbonate Er 450 Mg Tablet.Er) 900 mg PO BEDTIME [facility] Last Admin: 05/25/24 21:16 Dose: 900 mg Lorazepam (Lorazepam 1 Mg Tablet) 1 mg PO Q6H PRN PRN Reason: agitation Last Admin: 05/25/24 22:56 Dose: 1 mg Magnesium Hydroxide (Milk Of Magnesia 30 Ml Oral.Susp) 30 ml PO DAILY PRN PRN Reason: Constipation Multivitamins/Vitamin C (Multivitamin Tablet) 1 tab PO DAILY [facility] Last Admin: 05/26/24 09:17 Dose: 1 tab Nicotine (Nicotine 21 Mg Patch.Td24) 21 mg TRANSDERMA DAILY PRN PRN Reason: nicotine cravings Nicotine Polacrilex (Nicotine Polacrilex 2 Mg Gum) 4 mg BUCCAL Q2H PRN PRN Reason: Nicotine Cravings Last Admin: 05/25/24 22:55 Dose: 4 mg Pt Own (Quetiapine (300 Mg)) 600 mg PO BEDTIME [facility] Last Admin: 05/25/24 21:18 Dose: 600 mg Paliperidone (Paliperidone Er 9 Mg Tab.Er.24) 9 mg PO DAILY [facility] Last Admin: 05/26/24 09:17 Dose: 9 mg Prazosin HCl (Prazosin Hcl 1 Mg Capsule) 2 mg PO BEDTIME [facility]; Protocol Last Admin: 05/25/24 21:17 Dose: 2 mg Quetiapine Fumarate (Quetiapine Fumarate 100 Mg Tablet) 100 mg PO DAILY [facility] Last Admin: 05/26/24 09:17 Dose: 100 mg Allergies Allergies Allergy/AdvReac Type Severity Reaction Status Date / Time haloperidol [From HALDOL] Allergy Intermediate LOWERS Verified 05/19/24 21:16 HEART RATE trazodone AdvReac Intermediate Hives Verified 05/19/24 21:16 Assessment & Plan Assessment & Plan (1) Schizoaffective disorder: Qualifiers: Schizoaffective disorder type: unspecified Qualified Code(s): F25.9 - Schizoaffective disorder, unspecified Status: Acute Code(s): F25.9 - Schizoaffective disorder, unspecified (2) Chronic post-traumatic stress disorder (PTSD): Status: Acute Code(s): F43.12 - Post-traumatic stress disorder, chronic Plan - Admit to inpatient psychiatry - Collateral information from family and providers. - Milieu treatment and group therapy. - Medications: Restart home medications. - Social work evaluation. - Disposition planning. 05/22: continue current management and treatment plan. 05/23: Section 12B to 05/25. Increase Invega to 9 mg daily Possible Section 7. 05/25: Section 7 application filed. Continue regime Pt wanting to return to [place] to family and family home. We will attempt to work with this request if supports are in place and a safe plan can be developed. 05/26 continue tx plan Patient educated on: diagnosis and medication risk/benefits Informed Consent: understands, does not understand and further education needed Reason for continued inpatient stay Substantial Risk for: inability to function Time Spent With Patient Time: Total time managing care of this patient today ____ minutes.
[2024-05-26 20:00] VITALS: BP 122/68; PULSE 82; RESP 18; TEMP 36.4; O2SAT 97
[2024-05-26] MEDS: Prazosin HCL 1 MG CAPSULE 2 MG PO (20:35)
[2024-05-26] MEDS: diphenhydrAMINE HCL 25 MG CAPSULE PO (20:35)
[2024-05-27] MEDS: Levothyroxine Sodium 50 MCG TABLET PO (06:08)
[2024-05-27 07:59] VITALS: BP 130/68; PULSE 82; RESP 18; TEMP 36.3; O2SAT 98
[2024-05-27] MEDS: clonazePAM 1 MG TABLET PO ×2 (08:29→21:18)
[2024-05-27] MEDS: Multivitamin TABLET 1 TAB PO (08:29)
[2024-05-27] MEDS: Paliperidone ER 9 MG TAB.ER.24 PO (08:29)
[2024-05-27] MEDS: QUEtiapine Fumarate 100 MG TABLET PO (08:29)
--- NOTE | 2024-05-27 10:04 | HO.PSYCHPN ---
Subjective Subjective Date of Service: 05/27/24 Reason For Visit: Schizoaffective disorder, bipolar type Subjective Notes: Section 7 Healthcare Proxy: No Guardianship: No Medical Problems Affecting Mental Status: No Interim History: Pt has asked that we help her to return to [place] to her family home. Call to daughter Swetha Desai in [place] [phone] with JANELL Cook/Jonathan (H[employer]ist[employer] Teacher) who reports pt is welcome to return home, family will meet her at the airport and they request we send prescriptions vs meds so they may fill them when she arrives. No current concerns family has in having pt at home, except that she comply with her regime, they welcome her. Call to friend Pranay Cruz in [place], [place] [phone]. Pranay is willing to take pt to the bank, help her purchase an airline ticket and transport her to the airport and help her board the plane. Pt has been a friend of his family for several years, pt reports selling her her first home. Pranay reports he would like pt to have transport to his home, [address] [place] [address] so she will leave the hospital, have no distractions in [facility] and he will help her to get to her home in [place] where he agrees she will have greater support and safety with her family. Plan was reviewed with pt and Antoinette MACIEL/Jonathan (H[employer]ist[employer] Teacher). Pt agrees. Medication Compliance: Intermittent Side effects from medications: No Attending Groups: No Review of Systems Acute medical concerns: No Medical Review of Systems: unchanged Review of Systems Review of Systems needing Albuterol inhaler today Mental Status Exam Mental Status Exam Patient Appearance: Appropriate Patient Orientation: Person, Place, Time and Situation Level of Consciousness: Alert Patient Behavior: Talkative, Distractible and Good Eye Contact Mood Description: Apprehensive Affect Description: Apprehensive Patient Cognition Impaired: No Ability to Follow Directions: Fair Speech Pattern: Spontaneous Speech Memory Description: Episodic Impaired Hallucinations: None Delusions: Not Present Thought Process: Rumination Thought Content: positive for Circumstantial, positive for Suicidal Ideation (denies) and positive for Homicidal Ideation (denies) Abnormal Motor Activity Signs and Symptoms: Restlessness Judgement: Good Diagnostics Vital Signs (24Hr): Vital Signs - 24 hr 05/26/24 20:00 05/27/24 07:59 Temperature 97.6 F 97.4 F Pulse Rate 82 82 Respiratory Rate 18 18 Blood Pressure 122/68 130/68 Pulse Oximetry 97 98 Oxygen Delivery Method Room Air Room Air BMI result Body Mass Index 29.8 Labs 05/19/24 23:48 05/19/24 23:48 Medications Medications Current Medications Acetaminophen (Acetaminophen 325 Mg Tablet) 650 mg PO Q6H PRN PRN Reason: Headache/Pain Mild Scale (1-3) Last Admin: 05/25/24 15:47 Dose: 650 mg Al Hydroxide/Mg Hydroxide (Magnesium Hydrox/Alum Hydrox 30 Ml Oral.Susp) 30 ml PO Q6H PRN PRN Reason: Heartburn/Nausea Chlorpromazine HCl (Chlorpromazine Hcl 100 Mg Tablet) 100 mg PO TID PRN PRN Reason: agitation, psychosis Clonazepam (Clonazepam 1 Mg Tablet) 1 mg PO BID [facility] Last Admin: 05/27/24 08:29 Dose: 1 mg Diphenhydramine HCl (Diphenhydramine Hcl 25 Mg Capsule) 25 mg PO BEDTIME PRN PRN Reason: insomnia Last Admin: 05/26/24 20:35 Dose: 25 mg Hydroxyzine HCl (Hydroxyzine Hcl 25 Mg Tablet) 25 mg PO Q6H PRN PRN Reason: Anxiety Levothyroxine Sodium (Levothyroxine Sodium 50 Mcg Tablet) 50 mcg PO DAILY@0600 [facility] Last Admin: 05/27/24 06:08 Dose: 50 mcg [place] Carbonate ([place] Carbonate Er 450 Mg Tablet.Er) 900 mg PO BEDTIME [facility] Last Admin: 05/26/24 20:37 Dose: Not Given Lorazepam (Lorazepam 1 Mg Tablet) 1 mg PO Q6H PRN PRN Reason: agitation Last Admin: 05/25/24 22:56 Dose: 1 mg Magnesium Hydroxide (Milk Of Magnesia 30 Ml Oral.Susp) 30 ml PO DAILY PRN PRN Reason: Constipation Multivitamins/Vitamin C (Multivitamin Tablet) 1 tab PO DAILY [facility] Last Admin: 05/27/24 08:29 Dose: 1 tab Nicotine (Nicotine 21 Mg Patch.Td24) 21 mg TRANSDERMA DAILY PRN PRN Reason: nicotine cravings Nicotine Polacrilex (Nicotine Polacrilex 2 Mg Gum) 4 mg BUCCAL Q2H PRN PRN Reason: Nicotine Cravings Last Admin: 05/25/24 22:55 Dose: 4 mg Pt Own (Quetiapine (300 Mg)) 600 mg PO BEDTIME [facility] Last Admin: 05/26/24 20:36 Dose: 600 mg Paliperidone (Paliperidone Er 9 Mg Tab.Er.24) 9 mg PO DAILY [facility] Last Admin: 05/27/24 08:29 Dose: 9 mg Prazosin HCl (Prazosin Hcl 1 Mg Capsule) 2 mg PO BEDTIME [facility]; Protocol Last Admin: 05/26/24 20:35 Dose: 2 mg Quetiapine Fumarate (Quetiapine Fumarate 100 Mg Tablet) 100 mg PO DAILY [facility] Last Admin: 05/27/24 08:29 Dose: 100 mg Sodium Chloride (Sodium Chloride 0.65 % Nasal 44 Ml Sprbtl) 1 spray NOSTRIL-B Q1H PRN PRN Reason: Dryness Allergies Allergies Allergy/AdvReac Type Severity Reaction Status Date / Time haloperidol [From HALDOL] Allergy Intermediate LOWERS Verified 05/19/24 21:16 HEART RATE trazodone AdvReac Intermediate Hives Verified 05/19/24 21:16 Assessment & Plan Assessment & Plan (1) Schizoaffective disorder: Qualifiers: Schizoaffective disorder type: unspecified Qualified Code(s): F25.9 - Schizoaffective disorder, unspecified Status: Acute Code(s): F25.9 - Schizoaffective disorder, unspecified (2) Chronic post-traumatic stress disorder (PTSD): Status: Acute Code(s): F43.12 - Post-traumatic stress disorder, chronic Plan - Admit to inpatient psychiatry - Collateral information from family and providers. - Milieu treatment and group therapy. - Medications: Restart home medications. - Social work evaluation. - Disposition planning. 05/22: continue current management and treatment plan. 05/23: Section 12B to 05/25. Increase Invega to 9 mg daily Possible Section 7. 05/25: Section 7 application filed. Continue regime Pt wanting to return to [place] to family and family home. We will attempt to work with this request if supports are in place and a safe plan can be developed. 05/26: Continue tx Tentative DC 05/30 to return to [place] Reason for continued inpatient stay Substantial Risk for: rapid decompensation Time Spent With Patient Time: Total time managing care of this patient today ____ minutes.
[2024-05-27] MEDS: Acetaminophen 325 MG TABLET 650 MG PO (10:33)
[2024-05-27] MEDS: Sodium Chloride 0.65 % Nasal 44 ML SPRBTL 1 SPRAY NOSTRIL-B (11:15)
[2024-05-27] MEDS: LORazepam 1 MG TABLET PO ×2 (15:30→21:18)
[2024-05-27] MEDS: Nicotine Polacrilex 2 MG GUM 4 MG BUCCAL ×2 (15:32→22:38)
[2024-05-27 20:00] VITALS: BP 151/76; PULSE 89; RESP 18; TEMP 36.6; O2SAT 98
[2024-05-27] MEDS: Lithium Carbonate ER 450 MG TABLET.ER 900 MG PO (21:18)
[2024-05-27] MEDS: Prazosin HCL 1 MG CAPSULE 2 MG PO (21:18)
[2024-05-27] MEDS: diphenhydrAMINE HCL 25 MG CAPSULE PO (21:18)
[2024-05-28] MEDS: Levothyroxine Sodium 50 MCG TABLET PO (06:23)
--- NOTE | 2024-05-28 08:10 | HO.PSYCHPN ---
Subjective Subjective Date of Service: 05/28/24 Reason For Visit: Schizoaffective disorder, bipolar type Interim History: met with patient. Discussed with nursing. Overall reports things are going okay, with the exception of very poor sleep and feeling tired as result of same. Mood okay. Denied hallucinations. Denied SI. Also asking about cream for her feet, that are cracked. Medication Compliance: Yes Attending Groups: Intermittent Review of Systems Acute medical concerns: No Review of Systems Review of Systems Skin cracked on feet. No evidence of infection etc. Mental Status Exam Mental Status Exam Narrative: Casually dressed and presented. Good hygiene. Organized. Reports less depressed. No SI. No HI. Denies hallucinations today. Insight and judgment okay Diagnostics Vital Signs (24Hr): Vital Signs - 24 hr 05/27/24 20:00 Temperature 97.8 F Pulse Rate 89 Respiratory Rate 18 Blood Pressure 151/76 H Pulse Oximetry 98 Oxygen Delivery Method Room Air BMI result Body Mass Index 29.8 Labs 05/19/24 23:48 05/19/24 23:48 Medications Medications Current Medications Acetaminophen (Acetaminophen 325 Mg Tablet) 650 mg PO Q6H PRN PRN Reason: Headache/Pain Mild Scale (1-3) Last Admin: 05/27/24 10:33 Dose: 650 mg Al Hydroxide/Mg Hydroxide (Magnesium Hydrox/Alum Hydrox 30 Ml Oral.Susp) 30 ml PO Q6H PRN PRN Reason: Heartburn/Nausea Albuterol Sulfate (Albuterol Sulfate 90 Mcg 8 Gm Inhaler) 2 puff INHALE RQ4H PRN PRN Reason: Wheezing Chlorpromazine HCl (Chlorpromazine Hcl 100 Mg Tablet) 100 mg PO TID PRN PRN Reason: agitation, psychosis Clonazepam (Clonazepam 1 Mg Tablet) 1 mg PO BID [facility] Last Admin: 05/27/24 21:18 Dose: 1 mg Diphenhydramine HCl (Diphenhydramine Hcl 25 Mg Capsule) 25 mg PO BEDTIME PRN PRN Reason: insomnia Last Admin: 05/27/24 21:18 Dose: 25 mg Hydroxyzine HCl (Hydroxyzine Hcl 25 Mg Tablet) 25 mg PO Q6H PRN PRN Reason: Anxiety Levothyroxine Sodium (Levothyroxine Sodium 50 Mcg Tablet) 50 mcg PO DAILY@0600 [facility] Last Admin: 05/28/24 06:23 Dose: 50 mcg [place] Carbonate ([place] Carbonate Er 450 Mg Tablet.Er) 900 mg PO BEDTIME [facility] Last Admin: 05/27/24 21:18 Dose: 900 mg Lorazepam (Lorazepam 1 Mg Tablet) 1 mg PO Q6H PRN PRN Reason: agitation Last Admin: 05/27/24 21:18 Dose: 1 mg Magnesium Hydroxide (Milk Of Magnesia 30 Ml Oral.Susp) 30 ml PO DAILY PRN PRN Reason: Constipation Multivitamins/Vitamin C (Multivitamin Tablet) 1 tab PO DAILY [facility] Last Admin: 05/27/24 08:29 Dose: 1 tab Nicotine (Nicotine 21 Mg Patch.Td24) 21 mg TRANSDERMA DAILY PRN PRN Reason: nicotine cravings Nicotine Polacrilex (Nicotine Polacrilex 2 Mg Gum) 4 mg BUCCAL Q2H PRN PRN Reason: Nicotine Cravings Last Admin: 05/27/24 22:38 Dose: 4 mg Pt Own (Quetiapine (300 Mg)) 600 mg PO BEDTIME [facility] Last Admin: 05/27/24 21:19 Dose: 600 mg Paliperidone (Paliperidone Er 9 Mg Tab.Er.24) 9 mg PO DAILY [facility] Last Admin: 05/27/24 08:29 Dose: 9 mg Prazosin HCl (Prazosin Hcl 1 Mg Capsule) 2 mg PO BEDTIME [facility]; Protocol Last Admin: 05/27/24 21:18 Dose: 2 mg Quetiapine Fumarate (Quetiapine Fumarate 100 Mg Tablet) 100 mg PO DAILY [facility] Last Admin: 05/27/24 08:29 Dose: 100 mg Sodium Chloride (Sodium Chloride 0.65 % Nasal 44 Ml Sprbtl) 1 spray NOSTRIL-B Q1H PRN PRN Reason: Dryness Last Admin: 05/27/24 11:15 Dose: 1 spray Allergies Allergies Allergy/AdvReac Type Severity Reaction Status Date / Time haloperidol [From HALDOL] Allergy Intermediate LOWERS Verified 05/19/24 21:16 HEART RATE trazodone AdvReac Intermediate Hives Verified 05/19/24 21:16 Assessment & Plan Assessment & Plan (1) Schizoaffective disorder: Qualifiers: Schizoaffective disorder type: unspecified Qualified Code(s): F25.9 - Schizoaffective disorder, unspecified Status: Acute Code(s): F25.9 - Schizoaffective disorder, unspecified (2) Chronic post-traumatic stress disorder (PTSD): Status: Acute Code(s): F43.12 - Post-traumatic stress disorder, chronic Plan - Admit to inpatient psychiatry - Collateral information from family and providers. - Milieu treatment and group therapy. - Medications: Restart home medications. - Social work evaluation. - Disposition planning. 05/22: continue current management and treatment plan. 05/23: Section 12B to 05/25. Increase Invega to 9 mg daily Possible Section 7. 05/25: Section 7 application filed. Continue regime Pt wanting to return to [place] to family and family home. We will attempt to work with this request if supports are in place and a safe plan can be developed. 05/26: Continue tx Tentative DC 05/30 to return to [place] 05/28/2024: Will add Ambien 5 mg at bedtime for insomnia. Has worked well for patient in the past. Currently on Klonopin and did not see any concerns around substance use. Reason for continued inpatient stay Substantial Risk for: rapid decompensation Time Spent With Patient Time: Total time managing care of this patient today ____ minutes.
[2024-05-28] MEDS: Paliperidone ER 9 MG TAB.ER.24 PO (08:55)
[2024-05-28] MEDS: clonazePAM 1 MG TABLET PO ×2 (08:55→20:45)
[2024-05-28] MEDS: Multivitamin TABLET 1 TAB PO (08:55)
[2024-05-28] MEDS: QUEtiapine Fumarate 100 MG TABLET PO (08:55)
[2024-05-28 08:57] VITALS: BP 126/68; PULSE 72; RESP 18; TEMP 36.9; O2SAT 96
[2024-05-28] MEDS: Nicotine Polacrilex 2 MG GUM 4 MG BUCCAL ×2 (15:13→19:27)
[2024-05-28] MEDS: Acetaminophen 325 MG TABLET 650 MG PO (19:25)
[2024-05-28 20:00] VITALS: BP 146/98; PULSE 91; TEMP 36.3; O2SAT 94
[2024-05-28] MEDS: Albuterol Sulfate 90 MCG 8 GM INHALER 2 PUFF INHALE (20:41)
[2024-05-28] MEDS: Lithium Carbonate ER 450 MG TABLET.ER 900 MG PO (20:45)
[2024-05-28] MEDS: diphenhydrAMINE HCL 25 MG CAPSULE PO (20:45)
[2024-05-28] MEDS: Prazosin HCL 1 MG CAPSULE 2 MG PO (20:45)
[2024-05-28] MEDS: Zolpidem Tartrate 5 MG TABLET PO (20:46)
[2024-05-28] MEDS: Ibuprofen 800 MG TABLET PO (21:21)
[2024-05-28 22:25] VITALS: RESP 18
[2024-05-29] MEDS: Levothyroxine Sodium 50 MCG TABLET PO (06:31)
[2024-05-29] MEDS: Multivitamin TABLET 1 TAB PO (08:18)
[2024-05-29] MEDS: clonazePAM 1 MG TABLET PO ×2 (08:18→20:16)
[2024-05-29] MEDS: Paliperidone ER 9 MG TAB.ER.24 PO (08:18)
[2024-05-29] MEDS: QUEtiapine Fumarate 100 MG TABLET PO (08:18)
[2024-05-29] MEDS: Ibuprofen 800 MG TABLET PO (08:24)
[2024-05-29] MEDS: Acetaminophen 325 MG TABLET 650 MG PO (08:25)
[2024-05-29 08:32] VITALS: BP 117/58; PULSE 74; RESP 18; TEMP 37; O2SAT 98
[2024-05-29] MEDS: Lidocaine 4 % Patch ADH..PATCH 2 PATCH TRANSDERMA (10:50)
--- NOTE | 2024-05-29 10:56 | P.PNPSI_ITS ---
Subjective Subjective Date of Service: 05/29/24 Reason For Visit: Schizoaffective disorder, bipolar type Interim History: met with patient. Discussed with nursing. Overall reports things are going okay, with the exception of Shoulder pain. Asking for lidocaine patch. Looking forward to discharge back to [place] with family tomorrow. Mood okay. Denied hallucinations. Denied SI. Medication Compliance: Yes Attending Groups: Intermittent Review of Systems Acute medical concerns: No Review of Systems Review of Systems Shoulder pain Mental Status Exam Mental Status Exam Narrative: Casually dressed and presented. Good hygiene. Organized. Reports less depressed. No SI. No HI. Denies hallucinations today. Insight and judgment okay Diagnostics Vital Signs (24Hr): Vital Signs - 24 hr 05/28/24 20:00 05/28/24 22:25 05/29/24 08:32 Temperature 97.4 F 98.6 F Pulse Rate 91 74 Respiratory Rate 18 18 Blood Pressure 146/98 H 117/58 L Pulse Oximetry 94 98 Oxygen Delivery Method Room Air Room Air BMI result Body Mass Index 29.8 Labs 05/19/24 23:48 05/19/24 23:48 Medications Medications Current Medications Acetaminophen (Acetaminophen 325 Mg Tablet) 650 mg PO Q6H PRN PRN Reason: Headache/Pain Mild Scale (1-3) Last Admin: 05/29/24 08:25 Dose: 650 mg Al Hydroxide/Mg Hydroxide (Magnesium Hydrox/Alum Hydrox 30 Ml Oral.Susp) 30 ml PO Q6H PRN PRN Reason: Heartburn/Nausea Albuterol Sulfate (Albuterol Sulfate 90 Mcg 8 Gm Inhaler) 2 puff INHALE RQ4H PRN PRN Reason: Wheezing Last Admin: 05/28/24 20:41 Dose: 2 puff Chlorpromazine HCl (Chlorpromazine Hcl 100 Mg Tablet) 100 mg PO TID PRN PRN Reason: agitation, psychosis Clonazepam (Clonazepam 1 Mg Tablet) 1 mg PO BID [facility] Last Admin: 05/29/24 08:18 Dose: 1 mg Diphenhydramine HCl (Diphenhydramine Hcl 25 Mg Capsule) 25 mg PO BEDTIME PRN PRN Reason: insomnia Last Admin: 05/28/24 20:45 Dose: 25 mg Hydroxyzine HCl (Hydroxyzine Hcl 25 Mg Tablet) 25 mg PO Q6H PRN PRN Reason: Anxiety Ibuprofen (Ibuprofen 800 Mg Tablet) 800 mg PO Q8H PRN PRN Reason: shoulder pain Last Admin: 05/29/24 08:24 Dose: 800 mg Levothyroxine Sodium (Levothyroxine Sodium 50 Mcg Tablet) 50 mcg PO DAILY@0600 [facility] Last Admin: 05/29/24 06:31 Dose: 50 mcg Lidocaine (Lidocaine 4 % Patch Adh..Patch) 2 patch TRANSDERMA DAILY [facility]; Protocol Last Admin: 05/29/24 10:50 Dose: 2 patch [place] Carbonate ([place] Carbonate Er 450 Mg Tablet.Er) 900 mg PO BEDTIME [facility] Last Admin: 05/28/24 20:45 Dose: 900 mg Lorazepam (Lorazepam 1 Mg Tablet) 1 mg PO Q6H PRN PRN Reason: agitation Last Admin: 05/27/24 21:18 Dose: 1 mg Magnesium Hydroxide (Milk Of Magnesia 30 Ml Oral.Susp) 30 ml PO DAILY PRN PRN Reason: Constipation Multivitamins/Vitamin C (Multivitamin Tablet) 1 tab PO DAILY [facility] Last Admin: 05/29/24 08:18 Dose: 1 tab Nicotine (Nicotine 21 Mg Patch.Td24) 21 mg TRANSDERMA DAILY PRN PRN Reason: nicotine cravings Nicotine Polacrilex (Nicotine Polacrilex 2 Mg Gum) 4 mg BUCCAL Q2H PRN PRN Reason: Nicotine Cravings Last Admin: 05/28/24 19:27 Dose: 4 mg Pt Own (Quetiapine (300 Mg)) 600 mg PO BEDTIME [facility] Last Admin: 05/28/24 20:45 Dose: 600 mg Paliperidone (Paliperidone Er 9 Mg Tab.Er.24) 9 mg PO DAILY [facility] Last Admin: 05/29/24 08:18 Dose: 9 mg Prazosin HCl (Prazosin Hcl 1 Mg Capsule) 2 mg PO BEDTIME [facility]; Protocol Last Admin: 05/28/24 20:45 Dose: 2 mg Quetiapine Fumarate (Quetiapine Fumarate 100 Mg Tablet) 100 mg PO DAILY [facility] Last Admin: 05/29/24 08:18 Dose: 100 mg Sodium Chloride (Sodium Chloride 0.65 % Nasal 44 Ml Sprbtl) 1 spray NOSTRIL-B Q1H PRN PRN Reason: Dryness Last Admin: 05/27/24 11:15 Dose: 1 spray Vitamin A/Vitamin D (A And D Ointment 56.7 Gm Tube) 1 appl TOPICAL BID [facility]; Protocol Zolpidem Tartrate (Zolpidem Tartrate 5 Mg Tablet) 5 mg PO BEDTIME [facility] Last Admin: 05/28/24 20:46 Dose: 5 mg Allergies Allergies Allergy/AdvReac Type Severity Reaction Status Date / Time haloperidol [From HALDOL] Allergy Intermediate LOWERS Verified 05/19/24 21:16 HEART RATE trazodone AdvReac Intermediate Hives Verified 05/19/24 21:16 Assessment & Plan Assessment & Plan (1) Schizoaffective disorder: Qualifiers: Schizoaffective disorder type: unspecified Qualified Code(s): F25.9 - Schizoaffective disorder, unspecified Status: Acute Code(s): F25.9 - Schizoaffective disorder, unspecified (2) Chronic post-traumatic stress disorder (PTSD): Status: Acute Code(s): F43.12 - Post-traumatic stress disorder, chronic Plan - Admit to inpatient psychiatry - Collateral information from family and providers. - Milieu treatment and group therapy. - Medications: Restart home medications. - Social work evaluation. - Disposition planning. 05/22: continue current management and treatment plan. 05/23: Section 12B to 05/25. Increase Invega to 9 mg daily Possible Section 7. 05/25: Section 7 application filed. Continue regime Pt wanting to return to [place] to family and family home. We will attempt to work with this request if supports are in place and a safe plan can be developed. 05/26: Continue tx Tentative DC 05/30 to return to [place] 05/28/2024: Will add Ambien 5 mg at bedtime for insomnia. Has worked well for patient in the past. Currently on Klonopin and did not see any concerns around substance use. 05/29/2024: No changes to current treatment regimen. Planning discharge to [place] with family tomorrow Reason for continued inpatient stay Substantial Risk for: rapid decompensation Time Spent With Patient Time: Total time managing care of this patient today ____ minutes.
[2024-05-29] MEDS: A and D Ointment 56.7 GM TUBE 1 APPL TOPICAL (12:23)
[2024-05-29 20:00] VITALS: BP 139/71; PULSE 86; RESP 18; TEMP 37; O2SAT 96
[2024-05-29] MEDS: Prazosin HCL 1 MG CAPSULE 2 MG PO (20:15)
[2024-05-29] MEDS: Zolpidem Tartrate 5 MG TABLET PO (20:15)
[2024-05-29] MEDS: Lithium Carbonate ER 450 MG TABLET.ER 900 MG PO (20:16)
[2024-05-29] MEDS: diphenhydrAMINE HCL 25 MG CAPSULE PO (20:16)
[2024-05-30] MEDS: Nicotine Polacrilex 2 MG GUM 4 MG BUCCAL (05:54)
[2024-05-30] MEDS: Acetaminophen 325 MG TABLET 650 MG PO (05:54)
[2024-05-30] MEDS: Levothyroxine Sodium 50 MCG TABLET PO (05:54)
[2024-05-30 08:00] VITALS: BP 132/73; PULSE 76; RESP 18; TEMP 36.3; O2SAT 99
[2024-05-30] MEDS: QUEtiapine Fumarate 100 MG TABLET PO (08:48)
[2024-05-30] MEDS: Paliperidone ER 9 MG TAB.ER.24 PO (08:48)
[2024-05-30] MEDS: clonazePAM 1 MG TABLET PO (08:48)
[2024-05-30] MEDS: Multivitamin TABLET 1 TAB PO (08:48)
--- NOTE | 2024-05-30 15:55 | PM.PSYDC ---
DS: Providers Provider Date of Service: 05/30/24 Date of admission: 05/20/24 12:24 Date of discharge: 05/30/24 Primary care physician: [facility] Admitting clinician: Zane Aaron Attending physician on admission: Zane Aaron Attending physician on discharge: Ruddy Beasley Discharging clinician: Mariah Dhaliwal DS: Diagnosis Discharge Diagnosis (1) Schizoaffective disorder: Status: Acute (2) Chronic post-traumatic stress disorder (PTSD): Status: Acute DS: Medications Discharge Medications Home Medications: Previous Rx's ?Medication ?Instructions ?Recorded clonazepam 1 mg tablet (Klonopin) 1 mg PO BID #60 tabs 05/12/24 albuterol sulfate 90 mcg/actuation 2 puff inhalation RQ4H PRN 05/30/24 aerosol inhaler (Ventolin HFA) Wheezing #1 inhaler levothyroxine 50 mcg tablet 50 mcg PO QAM 30 days #30 tabs 05/30/24 lithium carbonate 450 mg 900 mg (2 x 450 mg) PO BEDTIME #60 05/30/24 tablet,extended release tabs nicotine (polacrilex) 2 mg gum 4 mg buccal Q2H PRN Nicotine 05/30/24 Cravings #100 ea paliperidone 9 mg tablet,extended 9 mg PO DAILY #30 tabs 05/30/24 release 24 hr (Invega) prazosin 2 mg capsule 2 mg PO BEDTIME #30 caps 05/30/24 quetiapine 100 mg tablet (Seroquel) 100 mg PO DAILY #30 tabs 05/30/24 quetiapine 300 mg tablet (Seroquel) 600 mg (2 x 300 mg) PO BEDTIME #60 05/30/24 tabs Mental Status Exam Mental Status Exam Patient Appearance: Appropriate Patient Orientation: Person, Place, Time and Situation Level of Consciousness: Alert Patient Behavior: Talkative, Distractible and Good Eye Contact Mood Description: Apprehensive Affect Description: Apprehensive Patient Cognition Impaired: No Ability to Follow Directions: Fair Speech Pattern: Spontaneous Speech Memory Description: Episodic Impaired Hallucinations: None Delusions: Not Present Thought Process: Rumination Thought Content: positive for Circumstantial, positive for Suicidal Ideation (denies) and positive for Homicidal Ideation (denies) Abnormal Motor Activity Signs and Symptoms: Restlessness Judgement: Good DS: Summary Hospital Course Hospital Course: Admission to adult psychiatry for exacerbation of PTSD, Schizoaffective Disorder, Bipolar type. Recent admission 04/28/24-05/13/24 where pt had a discharge plan to live locally with her daughter and grandchildren. Team learned on admission, that pt paid her daughter to attend a family meeting to tell team pt had a place to stay and family support. Pt actually discharged to the street and was unable to manage herself. This was discussed with pt and she acknowledged she did this, expressing anger that friends had not treated her well and she wanted to settle with them. Medication regime was restarted. Section 7 was filed for consideration as pt was noncompliant with medications. Family from [place] was contacted by pt and contacted team. Pt was invited to return to [place] to live with family of origin and another daughter. She accepted this offer and was assisted in making travel arrangements by a friend in [place], [place]. Pt is discharged, with prescriptions, to [place], [place] where she will go to friends home and he will assist her in boarding a plane to return to family of origin in [place]. Both friend, daughter and extended family reports she will experience a higher level of support, safety and supervision when she returns home. Status at Discharge Functional status at discharge: independent ambulation Overall status at discharge: patient is back to baseline Time Spent with Patient Time attestation: Total time managing care of this patient today ____ minutes. Time spent: Less than 30 minutes Discharge Plan Discharge Anticipated Discharge Date/Time: 05/30/24 12:00 Patient Disposition: Home, Self-Care Discharge Diagnosis: Schizoaffective Disorder, Bipolar Type PTSD, Chronic Referrals: [facility] [Primary Care Provider] - 1 Week Discharge Medications: New nicotine (polacrilex) 2 mg Gum 4 mg buccal Q2H PRN (Reason: Nicotine Cravings) Qty: 100 0RF lithium carbonate 450 mg Tablet Extended Release 900 mg PO BEDTIME Qty: 60 0RF albuterol sulfate [Ventolin HFA] 90 mcg/actuation Hfa Aerosol Inhaler 2 puff inhalation RQ4H PRN (Reason: Wheezing) Qty: 1 1RF paliperidone [Invega] 9 mg Tablet Extended Release 24 Hr 9 mg PO DAILY Qty: 30 0RF Continued quetiapine [Seroquel] 300 mg tablet 600 mg PO BEDTIME Qty: 60 0RF quetiapine [Seroquel] 100 mg tablet 100 mg PO DAILY Qty: 30 0RF levothyroxine 50 mcg tablet 50 mcg PO QAM 30 Days Qty: 30 0RF prazosin 2 mg capsule 2 mg PO BEDTIME Qty: 30 0RF clonazepam [Klonopin] 1 mg tablet 1 mg PO BID Qty: 60 0RF Discontinued diphenhydramine HCl [Cassie-Dryl] 25 mg tablet 25 mg PO BEDTIME PRN (Reason: insomnia) lithium carbonate 300 mg Tablet Extended Release 300 mg PO BID Qty: 60 0RF prednisone 20 mg Tablet 40 mg PO DAILY Qty: 4 0RF diphenhydramine HCl 25 mg Capsule 50 mg PO BEDTIME PRN (Reason: insomnia) 30 Days Qty: 60 0RF paliperidone [Invega] 3 mg tablet extended release 24hr 3 mg PO QAM Qty: 30 0RF multivitamin [One Daily Multivitamin] Tablet 1 tab PO DAILY Qty: 30 0RF Discharge Orders: Discharge Order (Routine); Ordered 05/30/24 Ordered By: Mariah Dhaliwal Diet: Advance to usual diet Activity on Discharge: As tolerated Stand Alone Forms: Patient Portal Discharge page, Community Support Print Language: Occitan Care Plan Goals: Mood and Behavioral Stabilization Health Concerns: Mood and Behavioral Stabilization Plan of Treatment: Pt will return to family home in [place]. Her friend Pranay will assist her in purchasing a ticket and with transportation to the airport. Take medications as directed Schedule you out patient appointments with the provider of your choice. Your daughter is aware and approving of you returning to [place]. She is willing to help you with medications and appointments she reports. She will pick you up at the airport when you arrive. Assessment: No SI/HI/AH/VH Discharge Date/Time: 05/30/24 11:05
== END 2024-05-30 11:05 | disposition home or self-care (01) | DRG 750 ==
LOC: HO.ED 05-20 08:45 → HO.PM5 05-20 14:39
PROVIDERS: Admitting Provider Clinical Nurse Specialist Psychiatric/Mental Health, Adult; Emergency Provider Internal Medicine; Visit Provider Clinical Nurse Specialist Psychiatric/Mental Health, Adult
DX: F25.0 Schizoaffective disorder, bipolar type (principal); R45.850 Homicidal ideations; F43.12 Post-traumatic stress disorder, chronic; Z79.890 Hormone replacement therapy; Z79.899 Other long term (current) drug therapy
CPT/HCPCS: 36415; 80053; 80178; 80307; 85025; 93005; 99285; S9485

== ENCOUNTER 2024-05-20 12:24 | Outpatient (BNV) | payer MEDICAID, SELFPAY | END 2024-05-23 18:34 | PROVIDERS: Admitting Provider Clinical Nurse Specialist Psychiatric/Mental Health, Adult; Emergency Provider Internal Medicine; Visit Provider Internal Medicine | DX: R94.31 Abnormal electrocardiogram [ECG] [EKG] (principal) | CPT/HCPCS: 93010 ==

== ENCOUNTER → 2024-05-20 12:24 | Outpatient (BNV) | payer OTHER, SELFPAY | PROVIDERS: Admitting Provider Clinical Nurse Specialist Psychiatric/Mental Health, Adult; Emergency Provider Internal Medicine; Visit Provider Psychiatry & Neurology Psychiatry | DX: F25.0 Schizoaffective disorder, bipolar type (principal); F43.12 Post-traumatic stress disorder, chronic | CPT/HCPCS: 99231; 99232; 99499 ==

== ENCOUNTER 2025-01-24 15:34 | Inpatient (IN) | payer MEDICAID, OTHER, SELFPAY ==
--- NOTE | 2025-01-24 | ECG_ITS ---
Test Reason : MED CLEAR Blood Pressure : */* mmHG Vent. Rate : 80 BPM Atrial Rate : 80 BPM P-R Int : 132 ms QRS Dur : 86 ms QT Int : 326 ms P-R-T Axes : 55 40 99 degrees QTcB Int : 375 ms Normal sinus rhythm T wave abnormality, consider lateral ischemia Abnormal ECG When compared with ECG of 23-May-2024 18:34, Inverted T waves have replaced nonspecific T wave abnormality in Anterior leads QT has shortened Referred By: Jorje Stokes Electronically Signed By: SHAHRIAR ZAPATA MD
--- NOTE | ~2025-01-24 | CT_ITS ---
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 No acute fracture. Calcific tendinitis along the supraspinatus. No discrete collections. Visualized right hemithorax is unremarkable. IMPRESSION: No acute fracture. Supraspinatus calcific tendinitis. This document has been electronically signed by: King Jiménez MD on 02/09/2025 00:43:02
--- NOTE | ~2025-01-24 | US_ITS ---
EXAMINATION: Noninvasive assessment of the left lower extremity with ARTERIAL DUPLEX, CLINICAL INFORMATION: Pain. Edema. TECHNIQUE: Duplex Doppler techniques with waveform analysis and measurement of velocities in the left common femoral, profunda femoris, superficial femoral, popliteal and tibial arteries were performed.. COMPARISON: None FINDINGS: DIRECT DUPLEX DOPPLER FINDINGS: LEFT LEG: Common femoral artery: 111 cm/s, phasicity: Triphasic. Profunda femoris artery: 57 cm/s, phasicity: Triphasic. Superficial femoral artery (proximal): 102 cm/s, phasicity: Triphasic. Superficial femoral artery (mid): 85 cm/s, phasicity: Triphasic. Superficial femoral artery (distal): 70 cm/s, phasicity: Triphasic. Popliteal artery: 82 cm/s, phasicity: Triphasic. Posterior tibial artery: 71 cm/s, phasicity: Triphasic. Peroneal artery: 49 cm/s, phasicity: Biphasic. Anterior tibial artery: 54 cm/s, phasicity: Biphasic. Dorsalis pedis artery: 56 cm/s, phasicity: Triphasic. US/US arterial duplex LE IMPRESSION: Mild inflow disease in the left peroneal and anterior tibialis arteries. No occlusion. Electronically signed by: Abraham Capellan MD 02/15/2025 08:21 AM EDT
--- NOTE | ~2025-01-24 | CT_ITS ---
CLINICAL HISTORY: headaches CT head without contrast Comparison: CT/REG/MO - CT HEAD/BRAIN WO CON - 05/16/21 14:57 EDT Findings: The prior CT report is not available for review. No intra-axial mass, midline shift, hydrocephalus, or acute hemorrhage. No significant atrophy-like change or white matter disease. The visualized paranasal sinuses and mastoid air cells are normal. The orbits are within normal limits. No skull fracture. IMPRESSION: 1. No acute intracranial findings. This document has been electronically signed by: Radha Navarro MD on 01/30/2025 12:47:29
--- NOTE | ~2025-01-24 | XR_ITS ---
EXAMINATION: XR SHOULDER, RIGHT CLINICAL INFORMATION: pain COMPARISON: 05/09/2024. TECHNIQUE: Three views of the right shoulder. FINDINGS: Normal bone mineralization. No fracture, dislocation, or suspicious bone lesion. Normal alignment. The glenohumeral joint is normal. The AC joint is normal. There is a type II acromion. No undersurface spurring. The subacromial space is preserved. There is amorphous calcification of the majority of the supraspinatus tendon, and subtly within the subacromial bursal space. Remainder of the soft tissue and bony structures appear normal. XR/XR shoulder RT min 2V IMPRESSION: 1. No fracture or dislocation. 2. Moderate to severe calcific tendinopathy of the supraspinatus tendon. This has mildly improved when compared with 05/09/2024. Electronically signed by: Ji Nunes MD 02/03/2025 03:56 PM EDT
--- NOTE | ~2025-01-24 | XR_ITS ---
EXAMINATION: XR HAND AND WRIST COMPLETE LEFT HISTORY: pain, swelling COMPARISON: There are no prior studies available for comparison. FINDINGS: Four views of the left hand and wrist are submitted. Osseous mineralization is normal. There is no fracture or dislocation. The joint spaces are preserved. The soft tissues are unremarkable. XR/XR hand wrist LT IMPRESSION: Unremarkable examination of the left hand and wrist. Electronically signed by: Coleman Melo MD 02/08/2025 07:14 AM EDT
--- NOTE | ~2025-01-24 | US_ITS ---
CLINICAL HISTORY: pain, bp change Arterial duplex ultrasound right upper extremity Comparison: None Findings: Peak systolic velocities range from 71 centimeters/second to 132 cm per 2nd in the imaged right subclavian, axillary, and brachial arteries. Right radial artery peak systolic velocity of 66 centimeters/second. Right ulnar artery peak systolic velocity of the 26 centimeters/second. Monophasic waveforms noted in the portion of the distal subclavian may be related to technique and sampling. Monophasic waveforms of the imaged radial artery of the imaged ulnar artery nonspecific. Otherwise, essentially triphasic waveforms. IMPRESSION: 1. No occlusion of the imaged arteries of the right subclavian arteries. 2. Nonspecific and blunted waveform and decreased velocity greater than 50% of the imaged ulnar artery relative to proximal artery likely due to mild-moderate stenosis. This document has been electronically signed by: Pedrito Chang MD on 02/09/2025 01:15:42
[2025-01-24 15:42] VITALS: BP 152/74; BP 158/84; PULSE 67; PULSE 74; RESP 18; TEMP 36.4; O2SAT 98; BMI 34.7
--- NOTE | 2025-01-24 15:47 | ED.PSYCH ---
HPI - Psych General Chief Complaint: Psychiatric Symptoms Stated Complaint: auditory and visual hallucinations Time Seen by Provider: 01/24/25 15:44 Source: patient Mode of arrival: EMS Limitations: no limitations History of Present Illness ED Provider: Dr. Moncada HPI Narrative: 59 year old female PMH: bipolar disorder schizophrenia PTSD with borderline personality disorder state that his hearing and having visual hallucinations. patient was most recently here in April of last year for auditory and visual hallucinations as well at that time Related Data Home Medications ?Medication ?Instructions ?Recorded ?Confirmed Seroquel 250 mg PO DAILY 01/24/25 01/24/25 Seroquel 400 mg PO BEDTIME 01/24/25 01/24/25 Zoloft 150 mg PO DAILY 01/24/25 01/24/25 clonazepam 1 mg tablet (Klonopin) 1 mg PO BID 01/24/25 01/24/25 divalproex 500 mg tablet,delayed 500 mg PO BID 01/24/25 01/24/25 release (Depakote) hydroxyzine pamoate 25 mg capsule 25 mg PO BEDTIME 01/24/25 01/24/25 (Vistaril) levothyroxine 50 mcg tablet 50 mcg PO DAILY 01/24/25 01/24/25 (Synthroid) temazepam 30 mg capsule (Restoril) 30 mg PO BEDTIME 01/24/25 01/24/25 Allergies Allergy/AdvReac Type Severity Reaction Status Date / Time haloperidol [From HALDOL] Allergy Intermediate LOWERS Verified 01/24/25 15:43 HEART RATE trazodone AdvReac Intermediate Hives Verified 01/24/25 15:43 Review of Systems Review of Systems: Review of systems: General: Patient denies any fever chills recent illness or falls Musculoskeletal: Denies back pain or body aches or other injuries HEENT: denies headache, runny nose, ear pain Respiratory: denies shortness of breath, cough Cardiovascular: no chest pain or palpitations : denies dysuria, frequency Abdomen: no nausea vomiting denies abdominal pain Extremities: no swelling, no pain Skin: no diaphoresis Yes all other systems are reviewed and are negative PMFSH Past Medical History Medical History Hypertension Bipolar 1 disorder Borderline personality disorder Depression Chronic post-traumatic stress disorder (PTSD) Hypothyroidism Social History Social History Household Members: None Housing: Apartment Do you presently have visiting nurse or other home services: No Unable to assess alcohol history related to: Unknown Alcohol intake: unknown Patient Tobacco Use Status: Never used Tobacco Smoked in Last 30 Days: No Use of substances other than those prescribed or required for medical reasons: Yes Substance Use Type: Crack/Cocaine and Marijuana Advance Directives: No Advance Directives Information Provided: No Do you have a plan to hurt others: No Plan Patient : No service: No Sexual orientation: Straight/Heterosexual Physical Exam Vital Signs: Vital Signs: Last Vital Signs Temp 97.6 F 01/24/25 15:42 Pulse 67 01/24/25 15:42 Resp 18 01/24/25 15:42 BP 158/84 H 01/24/25 15:42 Pulse Ox 98 01/24/25 15:42 O2 Del Method Room Air 01/24/25 15:42 BMI result Body Mass Index 34.7 General: Well-appearing well-nourished in no signs of distress HEENT: Normocephalic atraumatic Neck: No signs of JVD, no masses no tenderness or lymphadenopathy Cardiovascular: Regular rate and rhythm Respiratory: Clear to auscultation bilaterally Abdomen: Soft nontender no masses Extremities: Normal pedal pulses no signs of edema Skin: Dry warm no rashes Back: No tenderness full ROM Course Reevaluation(s) Reevaluation #1: patient's labs are all normal I will clear the patient for evaluation med rec completed patient obviously non compliant with medicataions was recently in [place] for similiar Medications Administered Generic Name Dose Route Start Last Admin Trade Name Freq PRN Reason Stop Dose Admin Levothyroxine Sodium 50 mcg 01/24/25 17:30 01/24/25 18:06 Levothyroxine Sodium 50 Mcg Tablet PO 50 mcg DAILY@0600 [facility] Administration Medical Decision Making Medical Decision Making MDM Narrative: similar presentations in the past the patient will require labs and then evaluation by behavioral health Differential Diagnosis Differential Diagnoses: The differential diagnosis associated with the presentation includes patient with hallucinations sent in from walk-in clinic denying SI or HI I will have the patient evaluated by crisis once I medically clear the patient Consult Healthcare Provider Management of the patient was discussed with: Behavioral Health Provider Lab Data 01/24/25 17:06 01/24/25 17:06 Labs: Lab Results 01/24/25 01/24/25 Range/Units 16:07 17:06 WBC 5.5 (4.8-10.8) X10*3/uL RBC 4.02 L (4.20-5.50) X10*6/uL Hgb 11.8 L (12.0-16.0) g/dl Hct 35.9 L (37.0-47.0) % MCV 89.3 (80.0-98.0) fL MCH 29.4 (27.0-33.0) pg MCHC 32.9 (31.0-35.0) g/dl RDW 13.2 (11.0-16.0) % Plt Count 176 D (160-400) X10*3/uL MPV 10.0 (9.4-12.3) fL Immature Gran % (Auto) 0.4 (0.0-0.4) % Neut % (Auto) 41.1 L (45-73) % Lymph % (Auto) 43.6 H (20-40) % [place] % (Auto) 12.8 H (2-11) % Eos % (Auto) 1.6 (0-4) % Baso % (Auto) 0.5 (0-2) % Lymph # (Auto) 2.4 (1.2-4.9) X10*3/uL [place] # (Auto) 0.7 (0.1-1.2) X10*3/uL Eos # (Auto) 0.1 (0.0-0.4) X10*3/uL Baso # (Auto) 0.0 (0.0-0.2) X10*3/uL Abs Immat Gran (auto) 0.02 (0.00-0.03) X10*3/uL Absolute Neuts (auto) 2.3 (2.0-8.3) x10*3/uL Absolute Nucleated RBC 0.000 (0.0-0.012) X10*3/uL Nucleated RBC % (auto) 0.0 (0.0-0.2) /100WBC Sodium 140 (135-145) mmol/L Potassium 3.7 (3.3-5.1) mmol/L Chloride 106 (96-108) mmol/L Carbon Dioxide 24 (22-29) mmol/L Anion Gap 14 (12-20) BUN 8 L (9-16) mg/dL Creatinine 0.59 (0.5-1.4) mg/dL Estim Creat Clear Calc 107.1 Estimated GFR > 60 Random Glucose 97 (60-115) mg/dL Calcium 9.4 (8.4-10.2) mg/dL Total Bilirubin 0.5 (0.0-1.0) mg/dL AST 44 H (5-31) U/L ALT 35 H (0-31) U/L Alkaline Phosphatase 82 (39-117) U/L Ammonia 38 (13-55) umol/L Total Protein 8.7 H (6.5-8.0) g/dL Albumin 4.1 (3.5-5.0) g/dL Urine Color Yellow Urine Appearance Clear Urine pH 6.0 (5.0-9.0) Ur Specific [place] 1.010 (1.005-1.025) Urine Protein Negative (Neg-Trace) mg/dL Urine Glucose (UA) Negative (Negative) mg/dL Urine Ketones Negative (Negative) mg/dL Urine Blood Negative (Negative) Urine Nitrite Negative (Negative) Ur Leukocyte Esterase Trace H (Negative) Urine RBC 0-2 (0-2) /HPF Urine WBC 0-5 (0-5) /HPF Ur Squamous Epith Cells 6-10 (0-2) /HPF Urine Bacteria None Seen (None Seen) Hyaline Casts 0-2 (0-2) /LPF Salicylates < 5.0 L (15-30) mg/dL Urine Opiates Screen Not Detected (Not Detect) Ur Buprenorphine Scrn Not Detected (Not Detect) ng/mL Ur Oxycodone Screen Not Detected (Not Detect) ng/mL Urine Methadone Screen Not Detected (Not Detect) ng/mL Urine Fentanyl Screen Not Detected (Not Detect) Acetaminophen < 3 (<30) mcg/mL Ur Barbiturates Screen Not Detected (Not Detect) Valproic Acid < 12.5 L (50.0-100.0) mcg/mL Ur Phencyclidine Scrn Not Detected (Not Detect) Ur Amphetamines Screen Not Detected (Not Detect) U Benzodiazepines Scrn POSITIVE H (Not Detect) [place] < 0.10 L (0.60-1.20) mmol/L Urine Cocaine Screen POSITIVE H (Not Detect) U Marijuana (THC) Screen POSITIVE H (Not Detect) Ethyl Alcohol < 10 mg/dL External Record Review External record reviewed: Inpatient record Discharge Plan Discharge Clinical Impression: Bipolar 1 disorder, Acute psychosis, Homicidal ideation Patient Disposition: Still a Patient Prescriptions: No Action clonazepam [Klonopin] 1 mg Tablet 1 mg PO BID divalproex [Depakote] 500 mg Tablet,Delayed Release (Dr/Ec) 500 mg PO BID temazepam [Restoril] 30 mg Capsule 30 mg PO BEDTIME levothyroxine [Synthroid] 50 mcg Tablet 50 mcg PO DAILY hydroxyzine pamoate [Vistaril] 25 mg Capsule 25 mg PO BEDTIME Seroquel tablet 400 mg PO BEDTIME Seroquel tablet 250 mg PO DAILY Zoloft tablet 150 mg PO DAILY Interventions: [place]-Suicide Risk Severity Scale Last Done: 01/24/25 16:27 Print Language: Guamanian
[2025-01-24 16:20] LABS: Appearance Urine Clear; Color Urine Yellow; Glucose Urine UA Negative (Negative); Leukocyte Esterase Urine Trace (Negative); Nitrite Urine Negative (Negative); UMIC TRIGGER UACC YES; Urine Blood Negative (Negative); Urine Ketones Negative (Negative); Urine Protein Negative (Neg-Trace)
[2025-01-24 16:23] LABS: Bacteria Urine None Seen (None Seen); Hyaline Casts Urine 0-2 /LPF (0-2); RBC Urine 0-2 /HPF (0-2); WBC Urine 0-5 /HPF (0-5)
[2025-01-24 16:26] LABS: Amphetamine Screen Urine Not Detected (Not Detect); Barbiturates, Urine Not Detected (Not Detect); Benzodiazepines Screen Urine POSITIVE (Not Detect); Buprenorphine Scr Not Detected (Not Detect); Cannabinoid Screen Urine POSITIVE (Not Detect); Cocaine Screen Urine POSITIVE (Not Detect); Fentanyl, urine Not Detected (Not Detect); Methadone Screen, Urine Not Detected (Not Detect); Opiate Screen Urine Not Detected (Not Detect); Oxycodone Screen Urine Not Detected (Not Detect); Phencyclidine Screen Urine Not Detected (Not Detect)
[2025-01-24 17:10] LABS: MANUAL DIFF FLAG NO
--- NOTE | 2025-01-24 17:17 | PC.NURSE ---
Medication reconciliation completed using medical record/medication list provided from hospital in [place] that patient brought in w/ personal belongings. List approved/verified by MD prior to completing.
[2025-01-24 17:19] LABS: Ammonia 38 umol/L (13-55)
[2025-01-24 17:35] LABS: Alanine Aminotransferase 35 U/L (0-31); Albumin Level 4.1 g/dL (3.5-5.0); Anion Gap 14 (12-20); Aspartate Amino Transferase 44 U/L (5-31); Basophils Percent Auto 0.5 % (0-2); Bilirubin Total 0.5 mg/dL (0.0-1.0); Blood Urea Nitrogen 8 mg/dL (9-16); Calcium 9.4 mg/dL (8.4-10.2); Carbon Dioxide 24 mmol/L (22-29); Chloride 106 mmol/L (96-108); Creatinine Clr Calc Pharmacy 107.1; Eosinophils Absolute Auto 0.1 X10*3/uL (0.0-0.4); Eosinophils Percent Auto 1.6 % (0-4); Estimated Glomerular Filt Rate > 60; Ethanol < 10 mg/dL; Glucose Random 97 mg/dL (60-115); Hematocrit 35.9 % (37.0-47.0); Hemoglobin 11.8 g/dl (12.0-16.0); Imm Gran Abs Auto 0.02 X10*3/uL (0.00-0.03); Imm Gran Pct Auto 0.4 % (0.0-0.4); Lymphocytes Absolute Auto 2.4 X10*3/uL (1.2-4.9); Lymphocytes Percent Auto 43.6 % (20-40); Mean Corpuscular HGB Conc 32.9 g/dl (31.0-35.0); Mean Corpuscular Hemoglobin 29.4 pg (27.0-33.0); Mean Corpuscular Volume 89.3 fL (80.0-98.0); Monocytes Absolute Auto 0.7 X10*3/uL (0.1-1.2); Monocytes Percent Auto 12.8 % (2-11); Neutrophils Absolute Auto 2.3 x10*3/uL (2.0-8.3); Neutrophils Percent Auto 41.1 % (45-73); Platelet Count 176 X10*3/uL (160-400); Potassium 3.7 mmol/L (3.3-5.1); Red Blood Count 4.02 X10*6/uL (4.20-5.50); Red Cell Distribution Width 13.2 % (11.0-16.0); Sodium 140 mmol/L (135-145); Total Protein 8.7 g/dL (6.5-8.0); White Blood Count 5.5 X10*3/uL (4.8-10.8)
[2025-01-24 17:38] LABS: Lithium < 0.10 mmol/L (0.60-1.20)
[2025-01-24 17:44] LABS: Valproate < 12.5 mcg/mL (50.0-100.0)
[2025-01-24 17:45] LABS: Acetaminophen LAB < 3 mcg/mL (<30); Alkaline Phosphatase 82 U/L (39-117); Salicylate < 5.0 mg/dL (15-30)
[2025-01-24] MEDS: Levothyroxine Sodium 50 MCG TABLET PO (18:06)
--- NOTE | 2025-01-24 19:40 | PC.NURSE ---
patient appers to remain at rest overall, ad alina using restroom just met w care team recently, apparently recently hyperverbal, appears in no distress
--- OUTSIDE RECORDS SUMMARY | 2025-01-24 20:11 | XMS_ITS | Encounter Summary ---
Author Organization [employer] Address [address] [facility] [address] [place] [address] Care Team Providers Care Line Installer Name Role Phone Breanna Rojas MD Primary Care Pro vider Reason for Visit * Reason Onset Date Comments Appointment Request 03/09/2024 Encounter Details Date Type Department Care Team ([facility] st Contact Info) Description 03/09/2024 Telephone [facility] MEDICINE [address] [place] [address] Breanna Rojas MD [address] [place] [address] Appointment Request Social History Tobacco Use Types Packs/Day Years Used Date Smoking Tobacco: Never Smokeless Tobacco: Never Alcohol Use Standard Drinks/Week Comments Not Currently 0 (1 standard drink = 0.6 oz pur e alcohol) Depression Answer Date Recorded Patient Health Questionnaire-9 Score 7 03/03/2024 Patient Health Questionnaire-9 Score 7 03/03/2024 Last PHQ-9: Questionnaire Data Not on file 0 03/03/2024 Housing Stability Answer Date Recorded What is your housing situation today? I have symone garcia 09/07/[address] you li ve. Do you have problems with any of the following? None of the above 09/07/2023 Food Insecurity Answer Date Recorded Within the past 12 months, y ou worried that your food would run out before you got money to buy more: Often true 09/09/2023 Within the past 12 months,th e food you bought just didn't last and you didn't have enough money to get more: Often true Transportation Answer Date Recorded In the past 12 months, has l ack of transportation kept you from medical appts, meetings, work or from getting things needed for daily living? Yes, it has kept me from medical appointments or getting medications. 09/09/2023 Utilities Answer Date Recorded In the past 12 months, has t he electric, gas, oil or water company threatened to shut off services in your home? No 09/07/2023 Depression Answer Date Recorded Patient Health Questionnaire-2 Score 2 03/03/2024 Comments Unknown Sex and Gender Information Value Date Recorded Sex Assigned at Female 09/22/2022 10:36 AM EDT Legal Sex Female 10:36 AM EDT Gender Identity Female 09/22/2022 10:36 AM EDT Sexual Orientation Choose not to disclose 2021 10:36 AM EDT documented as of this encounter Miscellaneous Notes * Telephone Encounter - Isaías Ricketts - 03/09/2024 2:49 PM EDT Tc from patient calling to schedule appt process description writer did attempt to reschedule PE appt however patient refused would only do office visit or follow up documented in this encounter Plan of Treatment Not on file documented as of this encounter Visit Diagnoses Not on filedocumented in this encounter Additional Health Concerns Assessment Noted Time PHQ-9 Depression Total Score: 7 03/03/20 24 2:41 PM EDT documented as of this encounter Care Teams Line Installer Relationship Specialty Start Date End Date Breanna Rojas MD [address] [place] [id number] PCP - General Internal Medicine 03/06/23 Joyce Almazan RN Care Manager 09/14/23 documented as of this encounter
--- OUTSIDE RECORDS SUMMARY | 2025-01-24 20:11 | XMS_ITS | Encounter Summary ---
Author Organization [facility] Address [address] [place] [id number] Care Team Providers Care Director Speech Name Role Phone Jane Davey [facility] Primary Care Provider [phone] Breanna Rojas MD Primary Care Pro vider Encounter Details Date Type Department Care Team (Latest Contact Info) Description 04/25/2021 Abstract [facility] CONVERSIONS Dental, Provider, DDS Social History Tobacco Use Types Packs/Day Years Used Date Smoking Tobacco: Never Assessed Comments Unknown Sex and Gender Information Value Date Recorded Sex Assigned at Female 09/22/2022 10:36 AM EDT Legal Sex Female 10:36 AM EDT Gender Identity Female 09/22/2022 10:36 AM EDT Sexual Orientation Choose not to disclose 2021 10:36 AM EDT documented as of this encounter Plan of Treatment Not on file documented as of this encounter Visit Diagnoses Not on filedocumented in this encounter Care Teams Director Speech Relationship Specialty Start Date End Date [facility] [address] [place] [address] PCP - General Family Medicine 05/20/22 03/05/23 Breanna Rojas MD 230 [place] [address] PCP - General Internal Medicine 03/06/23 Joyce Almazan RN Care Manager 09/14/23 documented as of this encounter
--- OUTSIDE RECORDS SUMMARY | 2025-01-24 20:11 | XMS_ITS | Encounter Summary ---
Author Organization [employer] Address [address] [facility] 7t [place] [address] Care Team Providers Care Fence Erector Name Role Phone Breanna Rojas MD Primary Care Pro vider Encounter Details Date Type Department Care Team (Late st Contact Info) Description 10/07/2023 Abstract [facility] MEDICINE [address] [place], [place] [phone] Breanna Rojas MD [address] [place], [place] [phone] Social History Tobacco Use Types Packs/Day Years Used Date Smoking Tobacco: Never Smokeless Tobacco: Never Alcohol Use Standard Drinks/Week Comments Not Currently 0 (1 standard drink = 0.6 oz pur e alcohol) Depression Answer Date Recorded Patient Health Questionnaire-9 Score 4 09/22/2023 Patient Health Questionnaire-9 Score 4 09/22/2023 Last PHQ-9: Questionnaire Data Not on file 1 Housing Stability Answer Date Recorded What is your housing situation today? I have symoneirma garcia 09/07/[address] you [...] Date Recorded Patient Health Questionnaire-2 Score 2 09/22/2023 Comments Unknown Sex and Gender Information Value [...] Assessment Noted Time PHQ-9 Depression Total Score: 4 09/22/20 10:28 AM EDT documented as of this encounter Care Teams Fence Erector Relationship Specialty Start Date End Date Breanna Rojas MD [address] [place] [address] PCP - General Internal Medicine 03/06/23 Joyce Almazan RN Care Manager 09/14/23 documented as of this encounter
--- OUTSIDE RECORDS SUMMARY | 2025-01-24 20:11 | XMS_ITS | Encounter Summary ---
Author Organization [employer] Address [address] [facility] 7t [place] [address] Care Team Providers Care Bankruptcy Attorney Name Role Phone Breanna Rojas MD Primary Care Pro vider Reason for Visit * Reason Comments Med Refill Encounter Details Date Type Department Care Team ([facility] st Contact Info) Description 04/13/2023 Refill [facility] 230 [place] [address] Hannah Guzman MD [address] [place] [address] Schizophrenia, unspecified type (CMS/HCC); Mixed anxiety and depressive disorder Social History Tobacco Use Types Packs/Day Years Used Date Smoking Tobacco: Never Smokeless Tobacco: Never Alcohol Use Standard Drinks/Week Comments Not Currently 0 (1 standard drink = 0.6 oz pur e alcohol) Comments Unknown Sex and Gender Information Value Date Recorded Sex Assigned at Female 09/22/2022 10:36 AM EDT Legal Sex Female 10:36 AM EDT Gender Identity Female 09/22/2022 10:36 AM EDT Sexual Orientation Choose not to disclose 2021 10:36 AM EDT COVID-19 Exposure Response Date Recorded In the last 10 days, have yo u been in contact with someone who was confirmed or suspected to have Coronavirus/COVID-19? No / Unsure 04/13/2023 11:13 AM EDT documented as of this encounter Plan of Treatment Not on file documented as of this encounter Visit Diagnoses Diagnosis Schizophrenia, unspecified type (CMS/HCC) Mixed anxiety and depressive disorder Dysthymic disorder documented in this encounter Additional Health Concerns Assessment Noted Time PHQ-9 Depression Total Score: 15 023 1:55 PM EDT documented as of this encounter Care Teams Bankruptcy Attorney Relationship Specialty Start Date End Date Breanna Rojas MD [address] [place] [address] PCP - General Internal Medicine 03/06/23 Joyce Almazan data control clerk 09/14/23 documented as of this encounter
--- OUTSIDE RECORDS SUMMARY | 2025-01-24 20:11 | XMS_ITS | Encounter Summary ---
Author Organization [employer] Address [address] [facility] 7t [place] [address] Care Team Providers Care Director Mobile Name Role Phone Breanna Rojas MD Primary Care Pro vider Reason for Visit * Reason Comments Med Refill Encounter Details Date Type Department Care Team ([facility] st Contact Info) Description 06/14/2024 Refill [facility] MEDICINE [address] [place], [place] [phone] Darnell Batista FNP Social History Tobacco Use Types Packs/Day Years [...] documented as of this encounter Care Teams Director Mobile Relationship Specialty Start Date End Date Breanna Rojas MD [address] [place] [id number] PCP - General Internal Medicine 03/06/23 Joyce Almazan RN Care Manager 09/14/23 documented as of this encounter
--- OUTSIDE RECORDS SUMMARY | 2025-01-24 20:11 | XMS_ITS | Encounter Summary ---
Author Organization [employer] Address [address] [facility] 7t [place] [address] Care Team Providers Care Wire Web Worker Name Role Phone Breanna Rojas MD Primary Care Pro vider Encounter Details Date Type Department Care Team (Late st Contact Info) Description 12/29/2023 Abstract [facility] [address] [place] [address] Breanna Rojas MD [address] [place] [address] Social History Tobacco Use Types Packs/Day Years [...] documented as of this encounter Care Teams Wire Web Worker Relationship Specialty Start Date End Date Breanna Rojas MD [address] [place] [id number] PCP - General Internal Medicine 03/06/23 Joyce Almazan RN Care Manager 09/14/23 documented as of this encounter
--- OUTSIDE RECORDS SUMMARY | 2025-01-24 20:11 | XMS_ITS | Encounter Summary ---
Author Organization [employer] Address [address] [facility] 7t [place] [address] Care Team Providers Care Greenhouse Laborer Name Role Phone Breanna Rojas MD Primary Care Pro vider Reason for Visit * Reason Comments Med Refill Encounter Details Date Type Department Care Team ([facility] st Contact Info) Description 11/05/2023 Refill [facility] MED & PEDS [address] [place] [address] Dranell Batista FNP Social History Tobacco Use Types [...] documented as of this encounter Care Teams Greenhouse Laborer Relationship Specialty Start Date End Date Breanna Rojas MD [address] [place] [id number] PCP - General Internal Medicine 03/06/23 Joyce Almazan RN Care Manager 09/14/23 documented as of this encounter
--- OUTSIDE RECORDS SUMMARY | 2025-01-24 20:11 | XMS_ITS | Encounter Summary ---
Author Organization [employer] Address [address] [facility] 7[address] [place] [address] Care Team Providers Care Appeals Reviewer Veteran Name Role Phone Breanna Rojas MD Primary Care Pro vider Reason for Visit * Reason Onset Date Comments FYi 12/09/2023 Encounter Details Date Type Department Care Team ([facility] st Contact Info) Description 12/09/[address] [facility] MEDICINE [address] [place] [address] Breanna Rojas MD [address] [place] [address] Social History Tobacco Use Types Packs/Day Years [...] encounter Miscellaneous Notes * Telephone Encounter - Emily Kendrick - 12/09/2023 11:06 AM EST Tc from [facility] calling to inform they are un able to see pt most of the times due to pt denying to go into home or most of the time she isn't available . [facility] believe pt isn't taking her medication as instructed . Any question may contact phone # [phone]. documented in this encounter Plan of Treatment Not on file documented as of this encounter Visit Diagnoses Not on filedocumented in this encounter Additional Health Concerns Assessment Noted Time PHQ-9 Depression Total Score: 4 09/22/20 23 10:28 AM EDT documented as of this encounter Care Teams Appeals Reviewer Veteran Relationship Specialty Start Date End Date Breanna Rojas MD [address] [place] [id number] PCP - General Internal Medicine 03/06/23 Joyce Almazan resizer operator 09/14/23 documented as of this encounter
--- OUTSIDE RECORDS SUMMARY | 2025-01-24 20:11 | XMS_ITS | Encounter Summary ---
Author Organization [employer] Address [address] [facility] 7t [place] [address] Care Team Providers Care Commercial Maintenance Technician Name Role Phone Breanna Rojas MD Primary Care Pro vider Reason for Visit * Reason Comments Med Refill Encounter Details Date Type Department Care Team ([facility] st Contact Info) Description 09/28/[address] [facility] MEDICINE [address] [place], [place] [phone] Tami Hutchins, ANP [address] [place] [address] Seasonal allergic rhinitis, unspecified trigger Social History Tobacco Use Types Packs/Day Years [...] as of this encounter Visit Diagnoses Diagnosis Seasonal allergic rhinitis, unspecified trigger documented in this encounter Additional Health Concerns Assessment Noted Time PHQ-9 Depression Total Score: 4 09/22/20 10:28 AM EDT documented as of this encounter Care Teams Commercial Maintenance Technician Relationship Specialty Start Date End Date Breanna Rojas MD [address] [place] [address] PCP - General Internal Medicine 03/06/23 Joyce Almazan RN Care Manager 09/14/23 documented as of this encounter
--- OUTSIDE RECORDS SUMMARY | 2025-01-24 20:11 | XMS_ITS | Encounter Summary ---
Author Organization [employer] Address [address] [place] [address] [place] [address] Care Team Providers Care Skin Care Technician Name Role Phone Breanna Rojas MD Primary Care Pro vider Encounter Details Date Type Department Care Team (Late st Contact Info) Description 03/10/2023 Orders Only [facility] MEDICINE [address] [place] [address] Alayna Schmitt FNP [address] [facility] [place] [address] Social History Tobacco Use Types Packs/Day Years [...] suspected to have Coronavirus/COVID-19? No / Unsure 02/23/2023 12:53 PM EDT documented as of this encounter Plan of Treatment Not on file documented as of this encounter Visit Diagnoses Not on filedocumented in this encounter Care Teams Skin Care Technician Relationship Specialty Start Date End Date Breanna Rojas MD [address] [place] [address] PCP - General Internal Medicine 03/06/23 Joyce Almazan RN Care Manager 09/14/23 documented as of this encounter
--- OUTSIDE RECORDS SUMMARY | 2025-01-24 20:11 | XMS_ITS | Clinical Summary ---
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 for which was hospitalized now denies SI PHQ-9: 12<----18 - behavioral therapy evaluated pt at previous visit and pt refusing to follow w psychotherapy. But agreed to f w psychopharm clinic -refusing outpt referral x psychiatry . Pt wants to be seen here -pt agreed to have a call back from who eval pt before -will request Yasmine to call pt for f up -pt has apt already scheduled to see Darnell Castillo for next week-06/30/2023 -I talked to pt and explained that I will refill her Klonipin 1 mg TID and Quetiapine 300 mg am and 400 mg pm (confirm doses with pharmacy at previous visit ) until she is seen by psychopharmacology clinic.-pt got a refill of all those meds and lithium started at last hospitalization x 7 days-I confirmed w px -meds will be ok until next apt w Darnell -spoke today w nurse staff -Teodora to start help for transportation requested by pt Assessment & Plan (05/14/2023 5:39 PM EDT): Pt w hx of bipolar/schizophrenia? Not consistently following with psychiatrist referred in the past. Denies currently suicidal ideation but reported it in the past, PHQ-9: 18 today. - behavioral therapy evaluated pt at previous visit and pt refusing to follow w psychotherapy. But agreed to [facility] -refusing outpt referral x psychiatry . -pt denies receiving a call from psychopharmacology clinic yet -referred done in 02/2023 by ? -I called today services to confirm if referral was done but I was not able to reach---sending this chart and requesting evaluation to Darnell Castillo via Epic route chart -I talked to pt and explained that I will refill her Klonipin 1 mg TID and Quetiapine 300 mg am and 400 mg pm (confirm doses with pharmacy at previous visit ) until she is seen by psychopharmacology clinic. -EKG done 02/2023 QTc is normal at 429 ms. -Did refill of her rozerem only 7 tabs today -pt reports taking med w no issues -explained to use only sporadically -if not covered by insurance will hold on PA --pt needs eval w psycho pharm clinic Assessment & Plan (04/01/2023 9:12 PM EDT): Pt w hx of bipolar/schizophrenia? Not consistently following with psychiatrist referred in the past. Denies currently suicidal ideation but reported it in the past, PHQ-9: 18 today. -I called behavioral therapy who saw pt today and pt refusing to follow w psychotherapy. -Agreed to be referred to psychopharmacology clinic here to be done by -I talked to pt and explained that I will refill her Klonipin 1 mg TID and Quetiapine 300 mg am and 400 mg pm (confirm doses with pharmacy and test MASSpat) today until she is seen by psychopharmacology clinic. Was given only 2 wks of medication and explained that she needs to come to see me in 2 wks to reevaluate mood sx -EKG done today and QTc is normal at 429 ms. Immunizations Name Administration Dates Next Due Pfizer Covid-19 Vaccine 12+ 07/15/2021 Pfizer Covid-19 Vaccine 12+ Bivalent 04/13/2023 Tdap 08/14/2020 Family History Medical History Relation Name Comments Mental illness Brother No Known Problems Father Blindness Maternal Grandmother Blindness Mother Relation Name Status Comments Brother Father Maternal Grandmother Mother Social History Tobacco Use Types Packs/Day Years Used Date Smoking Tobacco: Never Smokeless Tobacco: Never Tobacco Cessation:Counseling Given: Not Answered Alcohol Use Standard Drinks/Week Comments Not Currently [...] not to disclose 2021 10:36 AM EDT Last Filed Vital Signs Vital Sign Reading Time Taken Comments Blood Pressure 118/82 08/19/2023 11:08 AM EDT Pulse 95 08/19/2023 11:08 AM EDT Temperature 37.1 ??C (98.7 ??F) 08/10/2023 5:06 PM ED T Respiratory Rate 16 08/19/2023 11:08 AM EDT Oxygen Saturation 98% 08/19/2023 11:08 AM EDT Inhaled Oxygen Concentration - - Weight 66.7 kg (147 lb) 08/19/2023 11:08 AM EDT Height 154.9 cm (5' 1 ) 08/19/2023 11:08 AM EDT Body Mass Index 27.78 08/19/2023 11:08 AM EDT Plan of Treatment Health Maintenance Due Date Last Done Comments CT Colonography 1967 Colonoscopy 1967 Colorectal Cancer Screening 1967 FIT DNA/Cologuard 1967 FIT 1967 FOBT 1967 HIV Screening 1967 Lipid Panel 1967 Sigmoidoscopy 1967 Alcohol/Substance Use Screening 1979 Hepatitis C Screening 1985 Hepatitis B Vaccines (1 of 3 - 19+ 3-dose series) 1986 Pap Smear 1988 Cervical Cancer Screening 1997 HPV/Cotest 1997 Mammogram 2007 Pneumococcal Vaccine: 50+ Years (1 of 1 - PCV) 2017 Zoster Vaccines (1 of 2) 2017 COVID-19 Vaccine (3 - 2023-2 5 season) 2024 04/13/2023, 07/15/2021 Influenza Vaccine (#1) 2024 Tobacco Screening 07/28/2024 07/28/2023 SDOH Screening 09/09/2024 09/09/2023 Depression Screening 03/03/2025 03/03/2024, 03/03/2024 DTaP/Tdap/Td Vaccines (2 - T d or Tdap) 08/14/2030 08/14/2020 RSV Patients and Patients Aged 60 years or older (1 - 1-dose 75+ series) 2042 HIB Vaccines Aged Out No longer eligi ble based on patient's age to complete this topic HPV Vaccines Aged Out No longer eligi ble based on patient's age to complete this topic Hepatitis A Vaccines Aged Out No long er eligible based on patient's age to complete this topic IPV Vaccines Aged Out No longer eligi ble based on patient's age to complete this topic Meningococcal Vaccine Aged Out No hillary jenn eligible based on patient's age to complete this topic RSV under 20 months Aged Out No longe r eligible based on patient's age to complete this topic Rotavirus Vaccines Aged Out No longer eligible based on patient's age to complete this topic [facility] Care Teams Nut Chopper Relationship Specialty Start Date End Date Breanna Rojas MD [address] [place] [id number] PCP - General Internal Medicine 03/06/23 Joyce Almazan carton making 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
[2025-01-24 20:12] VITALS: BP 130/74; PULSE 77; RESP 20; TEMP 36.4; O2SAT 97
[2025-01-24] MEDS: Temazepam 15 MG CAPSULE 30 MG PO (20:13)
[2025-01-24] MEDS: hydrOXYzine HCL 25 MG TABLET PO (20:14)
[2025-01-24] MEDS: Divalproex Sodium 500 MG TABLET.DR PO (20:14)
[2025-01-24] MEDS: QUEtiapine Fumarate 400 MG TABLET PO (20:14)
[2025-01-24] MEDS: clonazePAM 1 MG TABLET PO (20:14)
[2025-01-24] MEDS: Acetaminophen 325 MG TABLET 650 MG PO (20:47)
[2025-01-25 06:34] VITALS: BP 98/64; PULSE 60; RESP 16; TEMP 36.7; O2SAT 96
[2025-01-25] MEDS: Divalproex Sodium 500 MG TABLET.DR PO ×2 (08:55→21:15)
[2025-01-25] MEDS: Sertraline HCL 50 MG TABLET 150 MG PO (08:55)
[2025-01-25] MEDS: Levothyroxine Sodium 50 MCG TABLET PO (08:57)
[2025-01-25] MEDS: clonazePAM 1 MG TABLET PO ×2 (08:57→21:15)
--- NOTE | 2025-01-25 09:38 | PC.NURSE ---
Patient requested a shower. all supplies given. pt unhappy with the brand of soap. cussed at staff and went back to her room.
--- NOTE | 2025-01-25 10:12 | PHA.MEDREC ---
Addendum entered by Victor Manuel Sunshine RP 01/25/25 10:27: med rec checked by [facility] Original Note: Pharmacy Consult ? Medication Reconciliation Pharmacy has completed the medication reconciliation. Reviewed med list and med rec done by nursing.
--- NOTE | 2025-01-25 11:25 | ECG_ITS ---
Test Reason : repeat from abnormal t-wave Blood Pressure : */* mmHG Vent. Rate : 71 BPM Atrial Rate : 71 BPM P-R Int : 130 ms QRS Dur : 84 ms QT Int : 432 ms P-R-T Axes : 62 42 76 degrees QTcB Int : 469 ms Normal sinus rhythm Normal ECG When compared with ECG of 24-Jan-2025 21:28, Nonspecific T wave abnormality no longer evident in Inferior leads T wave inversion less evident in Anterolateral leads QT has lengthened Referred By: Devante Kelly Electronically Signed By: SHAHRIAR ZAPATA MD
--- NOTE | 2025-01-25 11:53 | MHC.EDTECH ---
This pct charted on the EKG time for the wrong patient this patients actuall EKG time is 11:49am not 11:40am as previously documented, RN AWARE
[2025-01-25 12:43] VITALS: BP 108/64; PULSE 81; RESP 17; TEMP 37.3; O2SAT 97
--- NOTE | 2025-01-25 13:13 | PC.NURSE ---
Report to gloria Loyd to go to [facility] after lunch.
[2025-01-25 14:47] VITALS: PULSE 89; RESP 18; TEMP 36.2; O2SAT 97; BMI 26.7
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
[2025-01-25 20:00] VITALS: BP 140/78; PULSE 68; TEMP 36.8; O2SAT 97
[2025-01-25] MEDS: Acetaminophen 325 MG TABLET 650 MG PO (21:14)
[2025-01-25] MEDS: QUEtiapine Fumarate 400 MG TABLET PO (21:15)
[2025-01-25] MEDS: Temazepam 15 MG CAPSULE 30 MG PO (21:15)
[2025-01-25] MEDS: hydrOXYzine HCL 25 MG TABLET PO (21:16)
[2025-01-26] MEDS: Levothyroxine Sodium 50 MCG TABLET PO (06:44)
[2025-01-26] MEDS: Sertraline HCL 50 MG TABLET 150 MG PO (08:26)
[2025-01-26] MEDS: clonazePAM 1 MG TABLET PO ×3 (08:26→21:53)
[2025-01-26] MEDS: Divalproex Sodium 500 MG TABLET.DR PO (08:26)
[2025-01-26 08:35] VITALS: BP 123/66; PULSE 61; RESP 16; TEMP 36.9; O2SAT 97
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
[2025-01-26] MEDS: OLANZapine 5 MG TABLET PO (16:44)
[2025-01-26 20:00] VITALS: BP 120/78; PULSE 87; TEMP 36.4; O2SAT 99
[2025-01-26] MEDS: Lithium Carbonate ER 450 MG TABLET.ER PO (21:50)
[2025-01-26] MEDS: hydrOXYzine HCL 25 MG TABLET PO (21:50)
[2025-01-26] MEDS: Acetaminophen 325 MG TABLET 650 MG PO (21:51)
[2025-01-26] MEDS: QUEtiapine Fumarate 400 MG TABLET PO (21:52)
[2025-01-26] MEDS: Temazepam 15 MG CAPSULE 30 MG PO (21:52)
[2025-01-26] MEDS: Valproic Acid Liquid 250 MG/5 ML SOLUTION 500 MG PO (21:53)
[2025-01-27] MEDS: Levothyroxine Sodium 50 MCG TABLET PO (07:42)
[2025-01-27 08:00] VITALS: BP 123/73; PULSE 81; RESP 16; TEMP 36.4; O2SAT 97
[2025-01-27] MEDS: Multivitamin TABLET 1 TAB PO (08:58)
[2025-01-27] MEDS: Sertraline HCL 50 MG TABLET 150 MG PO (08:58)
[2025-01-27] MEDS: clonazePAM 1 MG TABLET PO ×3 (08:58→20:49)
[2025-01-27] MEDS: Valproic Acid Liquid 250 MG/5 ML SOLUTION 500 MG PO ×2 (08:59→20:48)
[2025-01-27] MEDS: Acetaminophen 325 MG TABLET 650 MG PO ×2 (08:59→15:22)
[2025-01-27] MEDS: OLANZapine 5 MG TABLET PO (15:21)
[2025-01-27] MEDS: Mineral Oil/Petrolatum,White 106 GM Tube 1 APPL TOPICAL (15:23)
--- NOTE | 2025-01-27 15:46 | P.PNPSI_ITS ---
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 Depressed, sleeping before we met. Not participating in milieu. Listening to headphones with no affect. Team reports she appears defeated . Pt affirms that her HI will always be present and never change She is flat, disinterested in presentation. She reports she does not feel overmedicated. She agrees to have CAT scan today Medication Compliance: Yes Side effects from medications: No Attending Groups: No Review of Systems Acute medical concerns: No Review of Systems Review of Systems Will do CAT Brain today Mental Status Exam Mental Status Exam Patient Appearance: Fatigued Patient Orientation: Person, Place and Situation Level of Consciousness: Alert Patient Behavior: Talkative and Good Eye Contact Mood Description: Depressed and Angry Affect Description: Flat Patient Cognition Impaired: No Ability to Follow Directions: Fair Speech Pattern: Spontaneous Speech Memory Description: Episodic Impaired Hallucinations: Auditory Delusions: Paranoid Ideation and Present Thought Process: Rumination Thought Content: positive for Circumstantial, positive for Perseveration, positive for Preoccupation, positive for Suicidal Ideation and positive for Homicidal Ideation Depressive Symptoms: Thoughts of /Suicide Judgement: Poor Diagnostics Vital Signs (24Hr): Vital Signs - 24 hr 01/26/25 20:00 01/27/25 08:00 Temperature 97.5 F 97.5 F Pulse Rate 87 81 Respiratory Rate 16 Blood Pressure 120/78 123/73 Pulse Oximetry 99 97 Oxygen Delivery Method Room Air BMI result Body Mass Index 26.7 Labs 01/24/25 17:06 01/24/25 17:06 Medications Medications Current Medications Acetaminophen (Acetaminophen 325 Mg Tablet) 650 mg PO Q6H PRN PRN Reason: Headache/Pain, Scale 1-10 Last Admin: 01/27/25 15:22 Dose: 650 mg Al Hydroxide/Mg Hydroxide (Magnesium Hydrox/Alum Hydrox 30 Ml Oral.Susp) 30 ml PO Q6H PRN PRN Reason: Heartburn/Nausea Clonazepam (Clonazepam 1 Mg Tablet) 1 mg PO TID [facility] Last Admin: 01/27/25 15:22 Dose: 1 mg Diphenhydramine HCl (Diphenhydramine Hcl 25 Mg Capsule) 50 mg PO BEDTIME PRN PRN Reason: Sleep Hydroxyzine HCl (Hydroxyzine Hcl 25 Mg Tablet) 25 mg PO BEDTIME [facility] Last Admin: 01/26/25 21:50 Dose: 25 mg Hydroxyzine HCl (Hydroxyzine Hcl 25 Mg Tablet) 25 mg PO Q6H PRN PRN Reason: mild anxiety Levothyroxine Sodium (Levothyroxine Sodium 50 Mcg Tablet) 50 mcg PO DAILY@0600 [facility] Last Admin: 01/27/25 07:42 Dose: 50 mcg [place] Carbonate ([place] Carbonate Er 450 Mg Tablet.Er) 450 mg PO BEDTIME [facility] Last Admin: 01/26/25 21:50 Dose: 450 mg Magnesium Hydroxide (Milk Of Magnesia 30 Ml Oral.Susp) 30 ml PO DAILY PRN PRN Reason: Constipation Multi-Ingred Cream/Lotion/Oil/Oint (Mineral Oil/Petrolatum,White 106 Gm Tube) 1 appl TOPICAL TID [facility]; Protocol Last Admin: 01/27/25 15:23 Dose: 1 appl Multivitamins/Vitamin C (Multivitamin Tablet) 1 tab PO DAILY [facility] Last Admin: 01/27/25 08:58 Dose: 1 tab Nicotine (Nicotine 21 Mg Patch.Td24) 21 mg TRANSDERMA DAILY PRN PRN Reason: smoking cessation Nicotine Polacrilex (Nicotine Polacrilex 2 Mg Gum) 4 mg BUCCAL Q2H PRN PRN Reason: Nicotine Cravings Olanzapine (Olanzapine 5 Mg Tablet) 5 mg PO TID PRN PRN Reason: agitation Last Admin: 01/27/25 15:21 Dose: 5 mg Quetiapine Fumarate (Quetiapine Fumarate 400 Mg Tablet) 400 mg PO BEDTIME [facility] Last Admin: 01/26/25 21:52 Dose: 400 mg Quetiapine Fumarate 200 mg/ (Quetiapine Fumarate 50 mg) 250 mg PO DAILY [facility] Last Admin: 01/27/25 08:59 Dose: 250 mg Sertraline HCl (Sertraline Hcl 50 Mg Tablet) 150 mg PO DAILY [facility] Last Admin: 01/27/25 08:58 Dose: 150 mg Temazepam (Temazepam 15 Mg Capsule) 30 mg PO BEDTIME [facility] Last Admin: 01/26/25 21:52 Dose: 30 mg Trazodone HCl (Trazodone Hcl 50 Mg Tablet) 50 mg PO BEDTIME MRX1 PRN PRN Reason: Insomnia Valproic Acid (Valproic Acid Liquid 250 Mg/5 Ml Solution) 500 mg PO BID [facility] Last Admin: 01/27/25 08:59 Dose: 500 mg Allergies Allergies Allergy/AdvReac Type Severity Reaction Status Date / Time haloperidol [From HALDOL] Allergy Intermediate LOWERS Verified 01/24/25 15:43 HEART RATE trazodone AdvReac Intermediate Hives Verified 01/24/25 15:43 Assessment & Plan Assessment & Plan (1) Schizoaffective disorder: Qualifiers: Schizoaffective disorder type: unspecified Qualified Code(s): F25.9 - Schizoaffective disorder, unspecified Status: Acute Code(s): F25.9 - Schizoaffective disorder, unspecified (2) Chronic post-traumatic stress disorder (PTSD): Status: Acute Code(s): F43.12 - Post-traumatic stress disorder, chronic (3) Polysubstance use disorder: Status: Acute Code(s): F19.90 - Other psychoactive substance use, unspecified, uncomplicated Plan Admit, Section 12B, 15 minute checks Diagnostics as needed Re-start regime [place] 450 mg ER HS Collateral contact Encourage milieu involvement [facility] application for services Probable Section /8. 01/27/25: Observe Continue current regime/plan CAT Brain Reason for continued inpatient stay Substantial Risk for: rapid decompensation Time Spent With Patient Time: Total time managing care of this patient today ____ minutes.
[2025-01-27 19:59] VITALS: BP 121/79; PULSE 84; RESP 16; TEMP 36.3; O2SAT 98
[2025-01-27] MEDS: hydrOXYzine HCL 25 MG TABLET PO (20:48)
[2025-01-27] MEDS: Temazepam 15 MG CAPSULE 30 MG PO (20:48)
[2025-01-27] MEDS: QUEtiapine Fumarate 400 MG TABLET PO (20:49)
[2025-01-27] MEDS: Lithium Carbonate ER 450 MG TABLET.ER PO (20:49)
[2025-01-28 08:00] VITALS: BP 127/69; PULSE 86; RESP 18; TEMP 36.6; O2SAT 98
[2025-01-28] MEDS: Valproic Acid Liquid 250 MG/5 ML SOLUTION 500 MG PO ×2 (08:30→20:43)
[2025-01-28] MEDS: Sertraline HCL 50 MG TABLET 150 MG PO (08:31)
[2025-01-28] MEDS: Levothyroxine Sodium 50 MCG TABLET PO (08:31)
[2025-01-28] MEDS: clonazePAM 1 MG TABLET PO ×3 (08:31→20:43)
[2025-01-28] MEDS: Multivitamin TABLET 1 TAB PO (08:31)
[2025-01-28] MEDS: Mineral Oil/Petrolatum,White 106 GM Tube 1 APPL TOPICAL ×2 (09:25→15:30)
--- NOTE | 2025-01-28 10:41 | HO.PSYCHPN ---
Subjective Subjective Date of Service: 01/28/25 Reason For Visit: depressed Subjective Notes: Section 12B Interim History: patient was seen and discussed in rounds today records and plans were reviewed. She continues to be irritable and at times agitated. She has expressed homicidal ideations. No specific plans reported. She is on a 12 be which expires on 01/30. She continues to have chronic suicidal ideations with no specific plans. CT scan has not been read yet Review of Systems Review of Systems Yes Unobtainable due to mental status Mental Status Exam Mental Status Exam Patient Appearance: Fatigued Patient Orientation: Person, Place and Situation Level of Consciousness: Alert Patient Behavior: Talkative and Good Eye Contact Mood Description: Depressed and Angry Affect Description: Flat Patient Cognition Impaired: No Ability to Follow Directions: Fair Speech Pattern: Spontaneous Speech Memory Description: Episodic Impaired Hallucinations: Auditory Delusions: Paranoid Ideation and Present Thought Process: Rumination Thought Content: positive for Circumstantial, positive for Perseveration, positive for Preoccupation, positive for Suicidal Ideation and positive for Homicidal Ideation Depressive Symptoms: Thoughts of /Suicide Judgement: Poor Diagnostics Vital Signs (24Hr): Vital Signs - 24 hr 01/27/25 19:59 01/28/25 08:00 Temperature 97.4 F 97.8 F Pulse Rate 84 86 Respiratory Rate 16 18 Blood Pressure 121/79 127/69 Pulse Oximetry 98 98 Oxygen Delivery Method Room Air Room Air BMI result Body Mass Index 26.7 Labs 01/24/25 17:06 01/24/25 17:06 Medications Medications Current Medications Acetaminophen (Acetaminophen 325 Mg Tablet) 650 mg PO Q6H PRN PRN Reason: Headache/Pain, Scale 1-10 Last Admin: 01/27/25 15:22 Dose: 650 mg Al Hydroxide/Mg Hydroxide (Magnesium Hydrox/Alum Hydrox 30 Ml Oral.Susp) 30 ml PO Q6H PRN PRN Reason: Heartburn/Nausea Clonazepam (Clonazepam 1 Mg Tablet) 1 mg PO TID [facility] Last Admin: 01/28/25 08:31 Dose: 1 mg Diphenhydramine HCl (Diphenhydramine Hcl 25 Mg Capsule) 50 mg PO BEDTIME PRN PRN Reason: Sleep Hydroxyzine HCl (Hydroxyzine Hcl 25 Mg Tablet) 25 mg PO BEDTIME [facility] Last Admin: 01/27/25 20:48 Dose: 25 mg Hydroxyzine HCl (Hydroxyzine Hcl 25 Mg Tablet) 25 mg PO Q6H PRN PRN Reason: mild anxiety Levothyroxine Sodium (Levothyroxine Sodium 50 Mcg Tablet) 50 mcg PO DAILY@0600 [facility] Last Admin: 01/28/25 08:31 Dose: 50 mcg [place] Carbonate ([place] Carbonate Er 450 Mg Tablet.Er) 450 mg PO BEDTIME [facility] Last Admin: 01/27/25 20:49 Dose: 450 mg Magnesium Hydroxide (Milk Of Magnesia 30 Ml Oral.Susp) 30 ml PO DAILY PRN PRN Reason: Constipation Multi-Ingred Cream/Lotion/Oil/Oint (Mineral Oil/Petrolatum,White 106 Gm Tube) 1 appl TOPICAL TID [facility]; Protocol Last Admin: 01/28/25 09:25 Dose: 1 appl Multivitamins/Vitamin C (Multivitamin Tablet) 1 tab PO DAILY [facility] Last Admin: 01/28/25 08:31 Dose: 1 tab Nicotine (Nicotine 21 Mg Patch.Td24) 21 mg TRANSDERMA DAILY PRN PRN Reason: smoking cessation Nicotine Polacrilex (Nicotine Polacrilex 2 Mg Gum) 4 mg BUCCAL Q2H PRN PRN Reason: Nicotine Cravings Olanzapine (Olanzapine 5 Mg Tablet) 5 mg PO TID PRN PRN Reason: agitation Last Admin: 01/27/25 15:21 Dose: 5 mg Quetiapine Fumarate (Quetiapine Fumarate 400 Mg Tablet) 400 mg PO BEDTIME [facility] Last Admin: 01/27/25 20:49 Dose: 400 mg Quetiapine Fumarate 200 mg/ (Quetiapine Fumarate 50 mg) 250 mg PO DAILY [facility] Last Admin: 01/28/25 08:30 Dose: 250 mg Sertraline HCl (Sertraline Hcl 50 Mg Tablet) 150 mg PO DAILY [facility] Last Admin: 01/28/25 08:31 Dose: 150 mg Temazepam (Temazepam 15 Mg Capsule) 30 mg PO BEDTIME [facility] Last Admin: 01/27/25 20:48 Dose: 30 mg Trazodone HCl (Trazodone Hcl 50 Mg Tablet) 50 mg PO BEDTIME MRX1 PRN PRN Reason: Insomnia Valproic Acid (Valproic Acid Liquid 250 Mg/5 Ml Solution) 500 mg PO BID [facility] Last Admin: 01/28/25 08:30 Dose: 500 mg Allergies Allergies Allergy/AdvReac Type Severity Reaction Status Date / Time haloperidol [From HALDOL] Allergy Intermediate LOWERS Verified 01/24/25 15:43 HEART RATE trazodone AdvReac Intermediate Hives Verified 01/24/25 15:43 Assessment & Plan Assessment & Plan (1) Schizoaffective disorder: Qualifiers: Schizoaffective disorder type: unspecified Qualified Code(s): F25.9 - Schizoaffective disorder, unspecified Status: Acute Code(s): F25.9 - Schizoaffective disorder, unspecified (2) Chronic post-traumatic stress disorder (PTSD): Status: Acute Code(s): F43.12 - Post-traumatic stress disorder, chronic (3) Polysubstance use disorder: Status: Acute Code(s): F19.90 - Other psychoactive substance use, unspecified, uncomplicated Plan Admit, Section 12B, 15 minute checks Diagnostics as needed Re-start regime [place] 450 mg ER HS Collateral contact Encourage milieu involvement [facility] application for services Probable Section 05/30. 01/27/25: Observe Continue current regime/plan CAT Brain 01/28/25: Continue current plans and regimen Reason for continued inpatient stay Substantial Risk for: harm to others and med/psych decompensation Time Spent With Patient Time: Total time managing care of this patient today ____ minutes.
[2025-01-28 19:52] VITALS: BP 127/79; PULSE 98; RESP 16; TEMP 36.9; O2SAT 97
[2025-01-28] MEDS: hydrOXYzine HCL 25 MG TABLET PO (20:43)
[2025-01-28] MEDS: Temazepam 15 MG CAPSULE 30 MG PO (20:43)
[2025-01-28] MEDS: Lithium Carbonate ER 450 MG TABLET.ER PO (20:43)
[2025-01-28] MEDS: QUEtiapine Fumarate 400 MG TABLET PO (20:44)
[2025-01-29 08:00] VITALS: BP 114/64; PULSE 96; TEMP 36.1; O2SAT 98
[2025-01-29] MEDS: Levothyroxine Sodium 50 MCG TABLET PO (08:32)
[2025-01-29] MEDS: Mineral Oil/Petrolatum,White 106 GM Tube 1 APPL TOPICAL (08:55)
[2025-01-29] MEDS: Valproic Acid Liquid 250 MG/5 ML SOLUTION 500 MG PO ×2 (08:55→20:34)
[2025-01-29] MEDS: Sertraline HCL 50 MG TABLET 150 MG PO (08:55)
[2025-01-29] MEDS: clonazePAM 1 MG TABLET PO ×3 (08:55→20:34)
[2025-01-29] MEDS: Multivitamin TABLET 1 TAB PO (08:55)
--- NOTE | 2025-01-29 09:34 | P.PNPSI_ITS ---
Subjective Subjective Date of Service: 01/29/25 Reason For Visit: depressed Subjective Notes: Section 12B Interim History: patient was seen and discussed in rounds today records and plans were reviewed. She is mostly isolative. No behavioral problems. Her 12 be expires tomorrow. Eating and sleeping adequately and most of the day. No dangerous behaviors. No changes were made today Review of Systems Review of Systems Yes Unobtainable due to mental status Mental Status Exam Mental Status Exam Patient Appearance: Fatigued Patient Orientation: Person, Place and Situation Level of Consciousness: Alert Patient Behavior: Talkative and Good Eye Contact Mood Description: Depressed and Angry Affect Description: Flat Patient Cognition Impaired: No Ability to Follow Directions: Fair Speech Pattern: Spontaneous Speech Memory Description: Episodic Impaired Hallucinations: Auditory Delusions: Paranoid Ideation and Present Thought Process: Rumination Thought Content: positive for Circumstantial, positive for Perseveration, positive for Preoccupation, positive for Suicidal Ideation and positive for Homicidal Ideation Depressive Symptoms: Thoughts of /Suicide Judgement: Poor Diagnostics Vital Signs (24Hr): Vital Signs - 24 hr 01/28/25 19:52 01/29/25 08:00 Temperature 98.4 F 96.9 F Pulse Rate 98 96 Respiratory Rate 16 Blood Pressure 127/79 114/64 Pulse Oximetry 97 98 Oxygen Delivery Method Room Air Room Air BMI result Body Mass Index 26.7 Labs 01/24/25 17:06 01/24/25 17:06 Medications Medications Current Medications Acetaminophen (Acetaminophen 325 Mg Tablet) 650 mg PO Q6H PRN PRN Reason: Headache/Pain, Scale 1-10 Last Admin: 01/27/25 15:22 Dose: 650 mg Al Hydroxide/Mg Hydroxide (Magnesium Hydrox/Alum Hydrox 30 Ml Oral.Susp) 30 ml PO Q6H PRN PRN Reason: Heartburn/Nausea Clonazepam (Clonazepam 1 Mg Tablet) 1 mg PO TID [facility] Last Admin: 01/29/25 08:55 Dose: 1 mg Diphenhydramine HCl (Diphenhydramine Hcl 25 Mg Capsule) 50 mg PO BEDTIME PRN PRN Reason: Sleep Hydroxyzine HCl (Hydroxyzine Hcl 25 Mg Tablet) 25 mg PO BEDTIME [facility] Last Admin: 01/28/25 20:43 Dose: 25 mg Hydroxyzine HCl (Hydroxyzine Hcl 25 Mg Tablet) 25 mg PO Q6H PRN PRN Reason: mild anxiety Levothyroxine Sodium (Levothyroxine Sodium 50 Mcg Tablet) 50 mcg PO DAILY@0600 [facility] Last Admin: 01/29/25 08:32 Dose: 50 mcg [place] Carbonate ([place] Carbonate Er 450 Mg Tablet.Er) 450 mg PO BEDTIME [facility] Last Admin: 01/28/25 20:43 Dose: 450 mg Magnesium Hydroxide (Milk Of Magnesia 30 Ml Oral.Susp) 30 ml PO DAILY PRN PRN Reason: Constipation Multi-Ingred Cream/Lotion/Oil/Oint (Mineral Oil/Petrolatum,White 106 Gm Tube) 1 appl TOPICAL TID [facility]; Protocol Last Admin: 01/29/25 08:55 Dose: 1 appl Multivitamins/Vitamin C (Multivitamin Tablet) 1 tab PO DAILY [facility] Last Admin: 01/29/25 08:55 Dose: 1 tab Nicotine (Nicotine 21 Mg Patch.Td24) 21 mg TRANSDERMA DAILY PRN PRN Reason: smoking cessation Nicotine Polacrilex (Nicotine Polacrilex 2 Mg Gum) 4 mg BUCCAL Q2H PRN PRN Reason: Nicotine Cravings Olanzapine (Olanzapine 5 Mg Tablet) 5 mg PO TID PRN PRN Reason: agitation Last Admin: 01/27/25 15:21 Dose: 5 mg Quetiapine Fumarate (Quetiapine Fumarate 400 Mg Tablet) 400 mg PO BEDTIME [facility] Last Admin: 01/28/25 20:44 Dose: 400 mg Quetiapine Fumarate 200 mg/ (Quetiapine Fumarate 50 mg) 250 mg PO DAILY [facility] Last Admin: 01/29/25 08:55 Dose: 250 mg Sertraline HCl (Sertraline Hcl 50 Mg Tablet) 150 mg PO DAILY [facility] Last Admin: 01/29/25 08:55 Dose: 150 mg Temazepam (Temazepam 15 Mg Capsule) 30 mg PO BEDTIME [facility] Last Admin: 01/28/25 20:43 Dose: 30 mg Trazodone HCl (Trazodone Hcl 50 Mg Tablet) 50 mg PO BEDTIME MRX1 PRN PRN Reason: Insomnia Valproic Acid (Valproic Acid Liquid 250 Mg/5 Ml Solution) 500 mg PO BID [facility] Last Admin: 01/29/25 08:55 Dose: 500 mg Allergies Allergies Allergy/AdvReac Type Severity Reaction Status Date / Time haloperidol [From HALDOL] Allergy Intermediate LOWERS Verified 01/24/25 15:43 HEART RATE trazodone AdvReac Intermediate Hives Verified 01/24/25 15:43 Assessment & Plan Assessment & Plan (1) Schizoaffective disorder: Qualifiers: Schizoaffective disorder type: unspecified Qualified Code(s): F25.9 - Schizoaffective disorder, unspecified Status: Acute Code(s): F25.9 - Schizoaffective disorder, unspecified (2) Chronic post-traumatic stress disorder (PTSD): Status: Acute Code(s): F43.12 - Post-traumatic stress disorder, chronic (3) Polysubstance use disorder: Status: Acute Code(s): F19.90 - Other psychoactive substance use, unspecified, uncomplicated Plan Admit, Section 12B, 15 minute checks Diagnostics as needed Re-start regime [place] 450 mg ER HS Collateral contact Encourage milieu involvement [facility] application for services Probable Section 05/30. 01/27/25: Observe Continue current regime/plan CAT Brain 01/28/25: Continue current plans and regimen 01/29: Continue current regimen and plans Reason for continued inpatient stay Substantial Risk for: med/psych decompensation Time Spent With Patient Time: Total time managing care of this patient today ____ minutes.
[2025-01-29 20:00] VITALS: BP 119/62; PULSE 91; RESP 15; TEMP 36.4; O2SAT 97
[2025-01-29] MEDS: QUEtiapine Fumarate 400 MG TABLET PO (20:33)
[2025-01-29] MEDS: Temazepam 15 MG CAPSULE 30 MG PO (20:33)
[2025-01-29] MEDS: Lithium Carbonate ER 450 MG TABLET.ER PO (20:33)
[2025-01-29] MEDS: hydrOXYzine HCL 25 MG TABLET PO (20:33)
[2025-01-30] MEDS: Levothyroxine Sodium 50 MCG TABLET PO (06:47)
[2025-01-30] MEDS: Multivitamin TABLET 1 TAB PO (07:43)
[2025-01-30] MEDS: Valproic Acid Liquid 250 MG/5 ML SOLUTION 500 MG PO (07:43)
[2025-01-30] MEDS: clonazePAM 1 MG TABLET PO ×3 (07:44→20:12)
[2025-01-30] MEDS: Sertraline HCL 50 MG TABLET 150 MG PO (07:44)
[2025-01-30 08:00] VITALS: RESP 18
[2025-01-30 08:44] LABS: Cholesterol 182 mg/dL (<200); HDL Cholesterol 56 mg/dL (>40); LDL Cholesterol Calculated 98 mg/dL (<100); Triglycerides 140 mg/dL (<150)
[2025-01-30 08:59] LABS: TSH reflex Free T4 4.08 uIU/mL (0.32-4.0)
[2025-01-30 09:22] LABS: Estimated Average Glucose 114 mg/dL; Hemoglobin A1C 120.3983 umol/L; Hemoglobin A1c % 5.6 % (<6.0); Total Hemoglobin (HGBA1C) 3227.0306 umol/L
[2025-01-30 11:01] LABS: Free T4 (Free Thyroxine) 0.84 ng/dL (0.71-1.85)
--- NOTE | 2025-01-30 11:03 | HO.PSYCHPN ---
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 I see people,some talk to me (+VH) I want to get locked up Increase the medicine Pt asks for help to re-enstate SSI. Discussed increase of Depakote and adding Chlorpromazine to help with urges to physically assault. She agrees Discussed filing of Section 7. She reports she agrees with this. Medication Compliance: Yes Side effects from medications: No Attending Groups: Intermittent Review of Systems Acute medical concerns: No Review of Systems Review of Systems intermittent shoulder pain Mental Status Exam Mental Status Exam Patient Appearance: Appropriate Patient Orientation: Person, Place, Time and Situation Level of Consciousness: Alert Patient Behavior: Talkative and Good Eye Contact Mood Description: Depressed and Angry Affect Description: Flat Patient Cognition Impaired: No Ability to Follow Directions: Good Speech Pattern: Spontaneous Speech Memory Description: Episodic Impaired Hallucinations: Auditory and Visual Delusions: Paranoid Ideation Thought Process: Rumination Thought Content: positive for Circumstantial, positive for Perseveration and positive for Homicidal Ideation Depressive Symptoms: Increased Irritability, Hopelessness and Unhappiness Judgement: Fair Diagnostics Vital Signs (24Hr): Vital Signs - 24 hr 01/29/25 20:00 01/30/25 08:00 Temperature 97.6 F Pulse Rate 91 Respiratory Rate 15 18 Blood Pressure 119/62 Pulse Oximetry 97 BMI result Body Mass Index 26.7 Labs 01/24/25 17:06 01/24/25 17:06 Labs: Laboratory Results - last 48 hr 01/30/25 07:49 Estimat Average Glucose 114 Hemoglobin A1c % 5.6 Triglycerides 140 Cholesterol 182 LDL Cholesterol, Calc 98 HDL Cholesterol 56 TSH 4.08 H Free T4 0.84 Medications Medications Current Medications Acetaminophen (Acetaminophen 325 Mg Tablet) 650 mg PO Q6H PRN PRN Reason: Headache/Pain, Scale 1-10 Last Admin: 01/27/25 15:22 Dose: 650 mg Al Hydroxide/Mg Hydroxide (Magnesium Hydrox/Alum Hydrox 30 Ml Oral.Susp) 30 ml PO Q6H PRN PRN Reason: Heartburn/Nausea Clonazepam (Clonazepam 1 Mg Tablet) 1 mg PO TID [facility] Last Admin: 01/30/25 07:44 Dose: 1 mg Diphenhydramine HCl (Diphenhydramine Hcl 25 Mg Capsule) 50 mg PO BEDTIME PRN PRN Reason: Sleep Hydroxyzine HCl (Hydroxyzine Hcl 25 Mg Tablet) 25 mg PO BEDTIME [facility] Last Admin: 01/29/25 20:33 Dose: 25 mg Hydroxyzine HCl (Hydroxyzine Hcl 25 Mg Tablet) 25 mg PO Q6H PRN PRN Reason: mild anxiety Levothyroxine Sodium (Levothyroxine Sodium 50 Mcg Tablet) 50 mcg PO DAILY@0600 [facility] Last Admin: 01/30/25 06:47 Dose: 50 mcg [place] Carbonate ([place] Carbonate Er 450 Mg Tablet.Er) 450 mg PO BEDTIME [facility] Last Admin: 01/29/25 20:33 Dose: 450 mg Magnesium Hydroxide (Milk Of Magnesia 30 Ml Oral.Susp) 30 ml PO DAILY PRN PRN Reason: Constipation Multi-Ingred Cream/Lotion/Oil/Oint (Mineral Oil/Petrolatum,White 106 Gm Tube) 1 appl TOPICAL TID [facility]; Protocol Last Admin: 01/30/25 08:20 Dose: Not Given Multivitamins/Vitamin C (Multivitamin Tablet) 1 tab PO DAILY [facility] Last Admin: 01/30/25 07:43 Dose: 1 tab Nicotine (Nicotine 21 Mg Patch.Td24) 21 mg TRANSDERMA DAILY PRN PRN Reason: smoking cessation Nicotine Polacrilex (Nicotine Polacrilex 2 Mg Gum) 4 mg BUCCAL Q2H PRN PRN Reason: Nicotine Cravings Olanzapine (Olanzapine 5 Mg Tablet) 5 mg PO TID PRN PRN Reason: agitation Last Admin: 01/27/25 15:21 Dose: 5 mg Quetiapine Fumarate (Quetiapine Fumarate 400 Mg Tablet) 400 mg PO BEDTIME [facility] Last Admin: 01/29/25 20:33 Dose: 400 mg Quetiapine Fumarate 200 mg/ (Quetiapine Fumarate 50 mg) 250 mg PO DAILY [facility] Last Admin: 01/30/25 07:44 Dose: 250 mg Sertraline HCl (Sertraline Hcl 50 Mg Tablet) 150 mg PO DAILY [facility] Last Admin: 01/30/25 07:44 Dose: 150 mg Temazepam (Temazepam 15 Mg Capsule) 30 mg PO BEDTIME [facility] Last Admin: 01/29/25 20:33 Dose: 30 mg Valproic Acid (Valproic Acid Liquid 250 Mg/5 Ml Solution) 500 mg PO BID [facility] Last Admin: 01/30/25 07:43 Dose: 500 mg Allergies Allergies Allergy/AdvReac Type Severity Reaction Status Date / Time haloperidol [From HALDOL] Allergy Intermediate LOWERS Verified 01/24/25 15:43 HEART RATE trazodone AdvReac Intermediate Hives Verified 01/24/25 15:43 Assessment & Plan Assessment & Plan (1) Schizoaffective disorder: Qualifiers: Schizoaffective disorder type: unspecified Qualified Code(s): F25.9 - Schizoaffective disorder, unspecified Status: Acute Code(s): F25.9 - Schizoaffective disorder, unspecified (2) Chronic post-traumatic stress disorder (PTSD): Status: Acute Code(s): F43.12 - Post-traumatic stress disorder, chronic (3) Polysubstance use disorder: Status: Acute Code(s): F19.90 - Other psychoactive substance use, unspecified, uncomplicated Plan Admit, Section 12B, 15 minute checks Diagnostics as needed Re-start regime [place] 450 mg ER HS Collateral contact Encourage milieu involvement [facility] application for services Probable Section 05/30. 01/27/25: Observe Continue current regime/plan CAT Brain 01/28/25: Continue current plans and regimen 01/29: Continue current regimen and plans 01/30: Increase Depakote to 1000 mg bid Chlorpromazine 50 mg tid Reason for continued inpatient stay Substantial Risk for: rapid decompensation Time Spent With Patient Time: Total time managing care of this patient today ____ minutes.
[2025-01-30] MEDS: Mineral Oil/Petrolatum,White 106 GM Tube 1 APPL TOPICAL (14:57)
[2025-01-30 20:00] VITALS: BP 120/76; PULSE 93; RESP 16; TEMP 36.6; O2SAT 96
[2025-01-30] MEDS: Valproic Acid Liquid 250 MG/5 ML SOLUTION 1000 MG PO (20:12)
[2025-01-30] MEDS: Lithium Carbonate ER 450 MG TABLET.ER PO (20:12)
[2025-01-30] MEDS: Temazepam 15 MG CAPSULE 30 MG PO (20:12)
[2025-01-30] MEDS: chlorproMAZINE HCl 25 MG TABLET 50 MG PO (20:12)
[2025-01-30] MEDS: hydrOXYzine HCL 25 MG TABLET PO (20:13)
[2025-01-30] MEDS: QUEtiapine Fumarate 400 MG TABLET PO (20:15)
[2025-01-31] MEDS: Levothyroxine Sodium 50 MCG TABLET PO (05:53)
[2025-01-31 08:00] VITALS: BP 134/64; PULSE 77; RESP 16; TEMP 35.9; O2SAT 100
[2025-01-31] MEDS: Valproic Acid Liquid 250 MG/5 ML SOLUTION 1000 MG PO ×2 (08:45→21:09)
[2025-01-31] MEDS: chlorproMAZINE HCl 25 MG TABLET 50 MG PO ×3 (08:45→21:10)
[2025-01-31] MEDS: Sertraline HCL 50 MG TABLET 150 MG PO (08:46)
[2025-01-31] MEDS: clonazePAM 1 MG TABLET PO ×3 (08:46→21:11)
[2025-01-31] MEDS: Multivitamin TABLET 1 TAB PO (08:46)
[2025-01-31] MEDS: Mineral Oil/Petrolatum,White 106 GM Tube 1 APPL TOPICAL ×3 (08:49→21:05)
--- NOTE | 2025-01-31 09:51 | P.PNPSI_ITS ---
Subjective Subjective Date of Service: 01/31/25 Reason For Visit: depressed Subjective Notes: Section 7 Healthcare Proxy: No Guardianship: No Medical Problems Affecting Mental Status: No Interim History: Met with pt, [facility], Trent LARA Mood improved with med changes. Pt was able to smile today. She reports she does not feel overmedicated at this time, however, did nap this afternoon. Pt met with her patent prosecution attorney to review her Section 7 today. She denies questions after this meeting. Medication Compliance: Yes Side effects from medications: No Attending Groups: No Review of Systems Acute medical concerns: No Review of Systems Review of Systems Intermittent shoulder pain Mental Status Exam Mental Status Exam Patient Appearance: Appropriate Patient Orientation: Person, Place, Time and Situation Level of Consciousness: Alert Patient Behavior: Talkative and Good Eye Contact Mood Description: Depressed and Angry Affect Description: Flat Patient Cognition Impaired: No Ability to Follow Directions: Good Speech Pattern: Spontaneous Speech Memory Description: Episodic Impaired Hallucinations: Auditory and Visual Delusions: Paranoid Ideation Thought Process: Rumination Thought Content: positive for Circumstantial, positive for Perseveration and positive for Homicidal Ideation Depressive Symptoms: Increased Irritability, Hopelessness and Unhappiness Judgement: Fair Diagnostics Vital Signs (24Hr): Vital Signs - 24 hr 01/30/25 20:00 Temperature 97.9 F Pulse Rate 93 Respiratory Rate 16 Blood Pressure 120/76 Pulse Oximetry 96 Oxygen Delivery Method Room Air BMI result Body Mass Index 26.7 Labs 01/24/25 17:06 01/24/25 17:06 Labs: Laboratory Results - last 48 hr 01/30/25 07:49 Estimat Average Glucose 114 Hemoglobin A1c % 5.6 Triglycerides 140 Cholesterol 182 LDL Cholesterol, Calc 98 HDL Cholesterol 56 TSH 4.08 H Free T4 0.84 Medications Medications Current Medications Acetaminophen (Acetaminophen 325 Mg Tablet) 650 mg PO Q6H PRN PRN Reason: Headache/Pain, Scale 1-10 Last Admin: 01/27/25 15:22 Dose: 650 mg Al Hydroxide/Mg Hydroxide (Magnesium Hydrox/Alum Hydrox 30 Ml Oral.Susp) 30 ml PO Q6H PRN PRN Reason: Heartburn/Nausea Chlorpromazine HCl (Chlorpromazine Hcl 25 Mg Tablet) 50 mg PO TID [facility] Last Admin: 01/31/25 08:45 Dose: 50 mg Clonazepam (Clonazepam 1 Mg Tablet) 1 mg PO TID [facility] Last Admin: 01/31/25 08:46 Dose: 1 mg Diphenhydramine HCl (Diphenhydramine Hcl 25 Mg Capsule) 50 mg PO BEDTIME PRN PRN Reason: Sleep Hydroxyzine HCl (Hydroxyzine Hcl 25 Mg Tablet) 25 mg PO BEDTIME [facility] Last Admin: 01/30/25 20:13 Dose: 25 mg Hydroxyzine HCl (Hydroxyzine Hcl 25 Mg Tablet) 25 mg PO Q6H PRN PRN Reason: mild anxiety Ibuprofen (Ibuprofen 800 Mg Tablet) 800 mg PO Q8H PRN PRN Reason: shoulder pain Levothyroxine Sodium (Levothyroxine Sodium 50 Mcg Tablet) 50 mcg PO DAILY@0600 [facility] Last Admin: 01/31/25 05:53 Dose: 50 mcg Cow[place]ill Carbonate (C[place] Carbonate Er 450 Mg Tablet.Er) 450 mg PO BEDTIME [facility] Last Admin: 01/30/25 20:12 Dose: 450 mg Magnesium Hydroxide (Milk Of Magnesia 30 Ml Oral.Susp) 30 ml PO DAILY PRN PRN Reason: Constipation Multi-Ingred Cream/Lotion/Oil/Oint (Mineral Oil/Petrolatum,White 106 Gm Tube) 1 appl TOPICAL TID [facility]; Protocol Last Admin: 01/31/25 08:49 Dose: 1 appl Multivitamins/Vitamin C (Multivitamin Tablet) 1 tab PO DAILY [facility] Last Admin: 01/31/25 08:46 Dose: 1 tab Nicotine (Nicotine 21 Mg Patch.Td24) 21 mg TRANSDERMA DAILY PRN PRN Reason: smoking cessation Nicotine Polacrilex (Nicotine Polacrilex 2 Mg Gum) 4 mg BUCCAL Q2H PRN PRN Reason: Nicotine Cravings Olanzapine (Olanzapine 5 Mg Tablet) 5 mg PO TID PRN PRN Reason: agitation Last Admin: 01/27/25 15:21 Dose: 5 mg Quetiapine Fumarate (Quetiapine Fumarate 400 Mg Tablet) 400 mg PO BEDTIME [facility] Last Admin: 01/30/25 20:15 Dose: 400 mg Quetiapine Fumarate 200 mg/ (Quetiapine Fumarate 50 mg) 250 mg PO DAILY [facility] Last Admin: 01/31/25 08:46 Dose: 250 mg Sertraline HCl (Sertraline Hcl 50 Mg Tablet) 150 mg PO DAILY [facility] Last Admin: 01/31/25 08:46 Dose: 150 mg Temazepam (Temazepam 15 Mg Capsule) 30 mg PO BEDTIME [facility] Last Admin: 01/30/25 20:12 Dose: 30 mg Valproic Acid (Valproic Acid Liquid 250 Mg/5 Ml Solution) 1,000 mg PO BID [facility] Last Admin: 01/31/25 08:45 Dose: 1,000 mg Allergies Allergies Allergy/AdvReac Type Severity Reaction Status Date / Time haloperidol [From HALDOL] Allergy Intermediate LOWERS Verified 01/24/25 15:43 HEART RATE trazodone AdvReac Intermediate Hives Verified 01/24/25 15:43 Assessment & Plan Assessment & Plan (1) Schizoaffective disorder: Qualifiers: Schizoaffective disorder type: unspecified Qualified Code(s): F25.9 - Schizoaffective disorder, unspecified Status: Acute Code(s): F25.9 - Schizoaffective disorder, unspecified (2) Chronic post-traumatic stress disorder (PTSD): Status: Acute Code(s): F43.12 - Post-traumatic stress disorder, chronic (3) Polysubstance use disorder: Status: Acute Code(s): F19.90 - Other psychoactive substance use, unspecified, uncomplicated Plan Admit, Section 12B, 15 minute checks Diagnostics as needed Re-start regime [place] 450 mg ER HS Collateral contact Encourage milieu involvement [facility] application for services Probable Section 05/30. 01/27/25: Observe Continue current regime/plan CAT Brain 01/28/25: Continue current plans and regimen 01/29: Continue current regimen and plans 01/31/25: No med changes today. Reason for continued inpatient stay Substantial Risk for: rapid decompensation Time Spent With Patient Time: Total time managing care of this patient today ____ minutes.
[2025-01-31 20:00] VITALS: BP 124/76; PULSE 92; TEMP 36.4; O2SAT 98
[2025-01-31] MEDS: QUEtiapine Fumarate 400 MG TABLET PO (21:11)
[2025-01-31] MEDS: Temazepam 15 MG CAPSULE 30 MG PO (21:11)
[2025-01-31] MEDS: Lithium Carbonate ER 450 MG TABLET.ER PO (21:11)
[2025-01-31] MEDS: hydrOXYzine HCL 25 MG TABLET PO (21:11)
[2025-02-01] MEDS: Levothyroxine Sodium 50 MCG TABLET PO (06:32)
[2025-02-01 08:15] VITALS: BP 115/67; PULSE 82; RESP 18; TEMP 36.2; O2SAT 96
[2025-02-01] MEDS: chlorproMAZINE HCl 25 MG TABLET 50 MG PO ×3 (08:35→20:47)
[2025-02-01] MEDS: Valproic Acid Liquid 250 MG/5 ML SOLUTION 1000 MG PO ×2 (08:35→20:45)
[2025-02-01] MEDS: clonazePAM 1 MG TABLET PO ×3 (08:35→20:47)
[2025-02-01] MEDS: Multivitamin TABLET 1 TAB PO (08:35)
[2025-02-01] MEDS: Sertraline HCL 50 MG TABLET 150 MG PO (08:35)
--- NOTE | 2025-02-01 09:59 | P.PNPSI_ITS ---
Subjective Subjective Date of Service: 02/01/25 Reason For Visit: depressed Subjective Notes: Section 7 Healthcare Proxy: No Guardianship: No Medical Problems Affecting Mental Status: No Interim History: Pt met with her united [place] attorney today, [employer]. She reports a positive meeting. She napped after this. She is visable in milieu, using headphones. Today, denies issues of concern. She presents quietly, flat affect. She denies feeling overmedicated. Medication Compliance: Yes Side effects from medications: No (??) Attending Groups: Intermittent Review of Systems Acute medical concerns: No Review of Systems Review of Systems denies Mental Status Exam Mental Status Exam Patient Appearance: Appropriate Patient Orientation: Person, Place, Time and Situation Level of Consciousness: Alert Patient Behavior: Talkative and Good Eye Contact Mood Description: Depressed Affect Description: Flat Patient Cognition Impaired: No Ability to Follow Directions: Good Speech Pattern: Spontaneous Speech Memory Description: Episodic Impaired Hallucinations: Auditory and Visual Delusions: Paranoid Ideation Thought Process: Rumination Thought Content: positive for Circumstantial, positive for Perseveration and positive for Homicidal Ideation Depressive Symptoms: Hopelessness and Unhappiness Judgement: Fair Diagnostics Vital Signs (24Hr): Vital Signs - 24 hr 01/31/25 20:00 02/01/25 08:15 Temperature 97.5 F 97.2 F Pulse Rate 92 82 Respiratory Rate 18 Blood Pressure 124/76 115/67 Pulse Oximetry 98 96 Oxygen Delivery Method Room Air Room Air BMI result Body Mass Index 26.7 Labs 01/24/25 17:06 01/24/25 17:06 Labs: Laboratory Results - last 48 hr 01/30/25 07:49 Free T4 0.84 Medications Medications Current Medications Acetaminophen (Acetaminophen 325 Mg Tablet) 650 mg PO Q6H PRN PRN Reason: Headache/Pain, Scale 1-10 Last Admin: 01/27/25 15:22 Dose: 650 mg Al Hydroxide/Mg Hydroxide (Magnesium Hydrox/Alum Hydrox 30 Ml Oral.Susp) 30 ml PO Q6H PRN PRN Reason: Heartburn/Nausea Chlorpromazine HCl (Chlorpromazine Hcl 25 Mg Tablet) 50 mg PO TID [facility] Last Admin: 02/01/25 08:35 Dose: 50 mg Clonazepam (Clonazepam 1 Mg Tablet) 1 mg PO TID [facility] Last Admin: 02/01/25 08:35 Dose: 1 mg Diphenhydramine HCl (Diphenhydramine Hcl 25 Mg Capsule) 50 mg PO BEDTIME PRN PRN Reason: Sleep Hydroxyzine HCl (Hydroxyzine Hcl 25 Mg Tablet) 25 mg PO BEDTIME [facility] Last Admin: 01/31/25 21:11 Dose: 25 mg Hydroxyzine HCl (Hydroxyzine Hcl 25 Mg Tablet) 25 mg PO Q6H PRN PRN Reason: mild anxiety Ibuprofen (Ibuprofen 800 Mg Tablet) 800 mg PO Q8H PRN PRN Reason: shoulder pain Levothyroxine Sodium (Levothyroxine Sodium 50 Mcg Tablet) 50 mcg PO DAILY@0600 [facility] Last Admin: 02/01/25 06:32 Dose: 50 mcg [place] Carbonate ([place] Carbonate Er 450 Mg Tablet.Er) 450 mg PO BEDTIME [facility] Last Admin: 01/31/25 21:11 Dose: 450 mg Magnesium Hydroxide (Milk Of Magnesia 30 Ml Oral.Susp) 30 ml PO DAILY PRN PRN Reason: Constipation Multi-Ingred Cream/Lotion/Oil/Oint (Mineral Oil/Petrolatum,White 106 Gm Tube) 1 appl TOPICAL TID [facility]; Protocol Last Admin: 02/01/25 08:38 Dose: Not Given Multivitamins/Vitamin C (Multivitamin Tablet) 1 tab PO DAILY [facility] Last Admin: 02/01/25 08:35 Dose: 1 tab Nicotine (Nicotine 21 Mg Patch.Td24) 21 mg TRANSDERMA DAILY PRN PRN Reason: smoking cessation Nicotine Polacrilex (Nicotine Polacrilex 2 Mg Gum) 4 mg BUCCAL Q2H PRN PRN Reason: Nicotine Cravings Olanzapine (Olanzapine 5 Mg Tablet) 5 mg PO TID PRN PRN Reason: agitation Last Admin: 01/27/25 15:21 Dose: 5 mg Quetiapine Fumarate (Quetiapine Fumarate 400 Mg Tablet) 400 mg PO BEDTIME [facility] Last Admin: 01/31/25 21:11 Dose: 400 mg Quetiapine Fumarate 200 mg/ (Quetiapine Fumarate 50 mg) 250 mg PO DAILY [facility] Last Admin: 02/01/25 08:35 Dose: 250 mg Sertraline HCl (Sertraline Hcl 50 Mg Tablet) 150 mg PO DAILY [facility] Last Admin: 02/01/25 08:35 Dose: 150 mg Temazepam (Temazepam 15 Mg Capsule) 30 mg PO BEDTIME [facility] Last Admin: 01/31/25 21:11 Dose: 30 mg Valproic Acid (Valproic Acid Liquid 250 Mg/5 Ml Solution) 1,000 mg PO BID [facility] Last Admin: 02/01/25 08:35 Dose: 1,000 mg Allergies Allergies Allergy/AdvReac Type Severity Reaction Status Date / Time haloperidol [From HALDOL] Allergy Intermediate LOWERS Verified 01/24/25 15:43 HEART RATE trazodone AdvReac Intermediate Hives Verified 01/24/25 15:43 Assessment & Plan Assessment & Plan (1) Schizoaffective disorder: Qualifiers: Schizoaffective disorder type: unspecified Qualified Code(s): F25.9 - Schizoaffective disorder, unspecified Status: Acute Code(s): F25.9 - Schizoaffective disorder, unspecified (2) Chronic post-traumatic stress disorder (PTSD): Status: Acute Code(s): F43.12 - Post-traumatic stress disorder, chronic (3) Polysubstance use disorder: Status: Acute Code(s): F19.90 - Other psychoactive substance use, unspecified, uncomplicated Plan Admit, Section 12B, 15 minute checks Diagnostics as needed Re-start regime [place] 450 mg ER HS Collateral contact Encourage milieu involvement [facility] application for services Probable Section 05/30. 01/27/25: Observe Continue current regime/plan CAT Brain 01/28/25: Continue current plans and regimen 01/29: Continue current regimen and plans 01/31/25: No med changes today. 02/01/25: Continue tx Reason for continued inpatient stay Substantial Risk for: rapid decompensation Time Spent With Patient Time: Total time managing care of this patient today ____ minutes.
[2025-02-01] MEDS: Acetaminophen 325 MG TABLET 650 MG PO (11:57)
[2025-02-01] MEDS: Lidocaine 4 % Patch ADH..PATCH 1 PATCH TRANSDERMA (12:22)
[2025-02-01 20:00] VITALS: BP 118/68; PULSE 84; RESP 16; TEMP 36.3; O2SAT 97
[2025-02-01] MEDS: Temazepam 15 MG CAPSULE 30 MG PO (20:46)
[2025-02-01] MEDS: hydrOXYzine HCL 25 MG TABLET PO (20:47)
[2025-02-01] MEDS: QUEtiapine Fumarate 400 MG TABLET PO (20:47)
[2025-02-01] MEDS: Lithium Carbonate ER 450 MG TABLET.ER PO (20:47)
[2025-02-01] MEDS: Mineral Oil/Petrolatum,White 106 GM Tube 1 APPL TOPICAL (20:51)
[2025-02-02] MEDS: Levothyroxine Sodium 50 MCG TABLET PO (06:36)
[2025-02-02 08:30] VITALS: BP 122/67; PULSE 72; RESP 16; TEMP 36.4; O2SAT 96
[2025-02-02] MEDS: Sertraline HCL 50 MG TABLET 150 MG PO (08:32)
[2025-02-02] MEDS: Valproic Acid Liquid 250 MG/5 ML SOLUTION 1000 MG PO ×2 (08:32→20:12)
[2025-02-02] MEDS: clonazePAM 1 MG TABLET PO ×3 (08:32→20:12)
[2025-02-02] MEDS: chlorproMAZINE HCl 25 MG TABLET 50 MG PO (08:32)
[2025-02-02] MEDS: Multivitamin TABLET 1 TAB PO (08:32)
[2025-02-02] MEDS: Lidocaine 4 % Patch ADH..PATCH 1 PATCH TRANSDERMA (08:42)
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
[2025-02-02 10:27] VITALS: BMI 29.2
[2025-02-02] MEDS: chlorproMAZINE HCl 25 MG TABLET PO ×2 (14:22→20:12)
[2025-02-02 20:00] VITALS: BP 121/66; PULSE 85; RESP 15; TEMP 36.4; O2SAT 97
[2025-02-02] MEDS: Lithium Carbonate ER 450 MG TABLET.ER PO (20:11)
[2025-02-02] MEDS: QUEtiapine Fumarate 400 MG TABLET PO (20:12)
[2025-02-02] MEDS: hydrOXYzine HCL 25 MG TABLET PO (20:12)
[2025-02-03] MEDS: Levothyroxine Sodium 50 MCG TABLET PO (06:19)
[2025-02-03 08:00] VITALS: BP 129/64; PULSE 80; TEMP 35.9; O2SAT 96
[2025-02-03] MEDS: chlorproMAZINE HCl 25 MG TABLET PO ×3 (08:08→20:28)
[2025-02-03] MEDS: Lidocaine 4 % Patch ADH..PATCH 1 PATCH TRANSDERMA (08:08)
[2025-02-03] MEDS: Valproic Acid Liquid 250 MG/5 ML SOLUTION 1000 MG PO ×2 (08:08→20:27)
[2025-02-03] MEDS: clonazePAM 1 MG TABLET PO ×3 (08:08→20:28)
[2025-02-03] MEDS: Sertraline HCL 50 MG TABLET 150 MG PO (08:09)
[2025-02-03] MEDS: Multivitamin TABLET 1 TAB PO (08:09)
--- NOTE | 2025-02-03 15:14 | P.PNPSI_ITS ---
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 Reports right shoulder pain. This is consistent with prior admit reports. We will repeat her xray and ask if orthopedics is able to consult with her. Reports she cannot lift her arm or write. Discussed court request to send a letter indicating admit dates. She agrees this is acceptable and authorized that it be completed Reports not feeling overmedicated, but did awaken at 4am this a.m. Will monitor. Team is communicating with family regarding treatment while she was in [place] Medication Compliance: Yes Side effects from medications: No Attending Groups: No Review of Systems shoulder pain Review of Systems Review of Systems shoulder pain Mental Status Exam Mental Status Exam Patient Appearance: Appropriate Patient Orientation: Person, Place, Time and Situation Level of Consciousness: Alert Patient Behavior: Talkative and Good Eye Contact Mood Description: Depressed Affect Description: Flat Patient Cognition Impaired: No Ability to Follow Directions: Good Speech Pattern: Spontaneous Speech Memory Description: Episodic Impaired Hallucinations: Auditory and Visual Delusions: Paranoid Ideation Thought Process: Rumination Thought Content: positive for Circumstantial, positive for Perseveration and positive for Homicidal Ideation Depressive Symptoms: Hopelessness and Unhappiness Judgement: Fair Diagnostics Vital Signs (24Hr): Vital Signs - 24 hr 02/02/25 20:00 02/03/25 08:00 Temperature 97.6 F 96.7 F L Pulse Rate 85 80 Respiratory Rate 15 Blood Pressure 121/66 129/64 Pulse Oximetry 97 96 Oxygen Delivery Method Room Air BMI result Body Mass Index 29.2 Labs 01/24/25 17:06 01/24/25 17:06 Medications Medications Current Medications Acetaminophen (Acetaminophen 325 Mg Tablet) 650 mg PO Q6H PRN PRN Reason: Headache/Pain, Scale 1-10 Last Admin: 02/01/25 11:57 Dose: 650 mg Al Hydroxide/Mg Hydroxide (Magnesium Hydrox/Alum Hydrox 30 Ml Oral.Susp) 30 ml PO Q6H PRN PRN Reason: Heartburn/Nausea Chlorpromazine HCl (Chlorpromazine Hcl 25 Mg Tablet) 25 mg PO TID [facility] Last Admin: 02/03/25 15:02 Dose: 25 mg Clonazepam (Clonazepam 1 Mg Tablet) 1 mg PO TID [facility] Last Admin: 02/03/25 15:02 Dose: 1 mg Diphenhydramine HCl (Diphenhydramine Hcl 25 Mg Capsule) 50 mg PO BEDTIME PRN PRN Reason: Sleep Hydroxyzine HCl (Hydroxyzine Hcl 25 Mg Tablet) 25 mg PO BEDTIME [facility] Last Admin: 02/02/25 20:12 Dose: 25 mg Hydroxyzine HCl (Hydroxyzine Hcl 25 Mg Tablet) 25 mg PO Q6H PRN PRN Reason: mild anxiety Ibuprofen (Ibuprofen 800 Mg Tablet) 800 mg PO Q8H PRN PRN Reason: shoulder pain Levothyroxine Sodium (Levothyroxine Sodium 50 Mcg Tablet) 50 mcg PO DAILY@0600 [facility] Last Admin: 02/03/25 06:19 Dose: 50 mcg Lidocaine (Lidocaine 4 % Patch Adh..Patch) 1 patch TRANSDERMA DAILY [facility]; Protocol Last Admin: 02/03/25 08:08 Dose: 1 patch Oden Carbonate (Oden Carbonate Er 450 Mg Tablet.Er) 450 mg PO BEDTIME [facility] Last Admin: 02/02/25 20:11 Dose: 450 mg Magnesium Hydroxide (Milk Of Magnesia 30 Ml Oral.Susp) 30 ml PO DAILY PRN PRN Reason: Constipation Multi-Ingred Cream/Lotion/Oil/Oint (Mineral Oil/Petrolatum,White 106 Gm Tube) 1 appl TOPICAL TID [facility]; Protocol Last Admin: 02/03/25 08:12 Dose: Not Given Multivitamins/Vitamin C (Multivitamin Tablet) 1 tab PO DAILY [facility] Last Admin: 02/03/25 08:09 Dose: 1 tab Nicotine (Nicotine 21 Mg Patch.Td24) 21 mg TRANSDERMA DAILY PRN PRN Reason: smoking cessation Nicotine Polacrilex (Nicotine Polacrilex 2 Mg Gum) 4 mg BUCCAL Q2H PRN PRN Reason: Nicotine Cravings Olanzapine (Olanzapine 5 Mg Tablet) 5 mg PO TID PRN PRN Reason: agitation Last Admin: 01/27/25 15:21 Dose: 5 mg Quetiapine Fumarate (Quetiapine Fumarate 400 Mg Tablet) 400 mg PO BEDTIME [facility] Last Admin: 02/02/25 20:12 Dose: 400 mg Quetiapine Fumarate 200 mg/ (Quetiapine Fumarate 50 mg) 250 mg PO DAILY [facility] Last Admin: 02/03/25 08:08 Dose: 250 mg Sertraline HCl (Sertraline Hcl 50 Mg Tablet) 150 mg PO DAILY [facility] Last Admin: 02/03/25 08:09 Dose: 150 mg Valproic Acid (Valproic Acid Liquid 250 Mg/5 Ml Solution) 1,000 mg PO BID [facility] Last Admin: 02/03/25 08:08 Dose: 1,000 mg Allergies Allergies Allergy/AdvReac Type Severity Reaction Status Date / Time haloperidol [From HALDOL] Allergy Intermediate LOWERS Verified 01/24/25 15:43 HEART RATE trazodone AdvReac Intermediate Hives Verified 01/24/25 15:43 Assessment & Plan Assessment & Plan (1) Schizoaffective disorder: Qualifiers: Schizoaffective disorder type: unspecified Qualified Code(s): F25.9 - Schizoaffective disorder, unspecified Status: Acute Code(s): F25.9 - Schizoaffective disorder, unspecified (2) Chronic post-traumatic stress disorder (PTSD): Status: Acute Code(s): F43.12 - Post-traumatic stress disorder, chronic (3) Polysubstance use disorder: Status: Acute Code(s): F19.90 - Other psychoactive substance use, unspecified, uncomplicated Plan Admit, Section 12B, 15 minute checks Diagnostics as needed Re-start regime Oden 450 mg ER HS Collateral contact Encourage milieu involvement [facility] application for services Probable Section 05/30. 01/27/25: Observe Continue current regime/plan CAT Brain 01/28/25: Continue current plans and regimen 01/29: Continue current regimen and plans 01/31/25: No med changes today. 02/02: Decrease chlorpromazine to 25 mg tid 02/03: Xray R shoulder Orthopedic consult R shoulder pain Continue current regime Section 7 hearing 02/06/25. Reason for continued inpatient stay Substantial Risk for: rapid decompensation Time Spent With Patient Time: Total time managing care of this patient today ____ minutes.
[2025-02-03 20:00] VITALS: BP 171/71; PULSE 91; TEMP 36; O2SAT 98
[2025-02-03] MEDS: Lithium Carbonate ER 450 MG TABLET.ER PO (20:28)
[2025-02-03] MEDS: hydrOXYzine HCL 25 MG TABLET PO (20:28)
[2025-02-03] MEDS: QUEtiapine Fumarate 400 MG TABLET PO (20:28)
[2025-02-03] MEDS: Benztropine Mesylate 0.5 MG TABLET PO (20:28)
[2025-02-03] MEDS: Ibuprofen 800 MG TABLET PO (20:31)
[2025-02-03] MEDS: Mineral Oil/Petrolatum,White 106 GM Tube 1 APPL TOPICAL (20:33)
--- NOTE | 2025-02-03 20:57 | PM.EVENT ---
Event Note Date of Service: 02/03/25 Event Note: Right shoulder pain -xr significant for calcific tendonitis -no acute intervention warranted -outpatient ortho eval prn Time Spent With Patient Time: Total time managing care of this patient today ____ minutes.
[2025-02-04] MEDS: Levothyroxine Sodium 50 MCG TABLET PO (06:59)
--- NOTE | 2025-02-04 08:45 | P.PNPSI_ITS ---
Subjective Subjective Date of Service: 02/04/25 Reason For Visit: depressed Subjective Notes: Section 7 Healthcare Proxy: No Guardianship: No Medical Problems Affecting Mental Status: Yes (right shoulder pain disrupting sleep) Interim History: 59 yo HF seen with siderographer reporting she is fine no si/ah- but co trouble getting up and needing help to get up - as her right shoulder hurts and as she attempted to get up made no effort to use left arm to help herself causing likely more strain on neck and right side- Did get results of scan that moderate to severe tendinitis- will start pt on standing NSAID and order PT asessment/care - Medication Compliance: Yes Side effects from medications: No Attending Groups: No Review of Systems Acute medical concerns: Yes tendinitis Medical Review of Systems: unchanged Mental Status Exam Mental Status Exam Patient Appearance: Unkempt Patient Orientation: Person, Place, Time and Situation Level of Consciousness: Awake Patient Behavior: Passive, Resistive to Care and Avoidant Mood Description: Calm Affect Description: Blunted Patient Cognition Impaired: No Ability to Follow Directions: Fair Speech Pattern: Rambling Thought Process: Distracted Thought Content: positive for Intact, positive for Goal Oriented and positive for Perseveration (on shoulder pain and needing help getting up) Depressive Symptoms: Muscle Tension, Difficulty Sleeping and Muscle Pain Judgement: Fair Diagnostics Vital Signs (24Hr): Vital Signs - 24 hr 02/03/25 20:00 Temperature 96.8 F Pulse Rate 91 Blood Pressure 171/71 H Pulse Oximetry 98 Oxygen Delivery Method Room Air BMI result Body Mass Index 29.2 Labs 01/24/25 17:06 01/24/25 17:06 Imaging Radiology Impressions: ITS Impressions Shoulder X-Ray 02/03/25 15:38 IMPRESSION: 1. No fracture or dislocation. 2. Moderate to severe calcific tendinopathy of the supraspinatus tendon. This has mildly improved when compared with 05/09/2024. Electronically signed by: Ji Nunes MD 02/03/2025 03:56 PM EDT Medications Medications Current Medications Acetaminophen (Acetaminophen 325 Mg Tablet) 650 mg PO Q6H PRN PRN Reason: Headache/Pain, Scale 1-10 Last Admin: 02/01/25 11:57 Dose: 650 mg Al Hydroxide/Mg Hydroxide (Magnesium Hydrox/Alum Hydrox 30 Ml Oral.Susp) 30 ml PO Q6H PRN PRN Reason: Heartburn/Nausea Benztropine Mesylate (Benztropine Mesylate 0.5 Mg Tablet) 0.5 mg PO BID [facility] Last Admin: 02/03/25 20:28 Dose: 0.5 mg Chlorpromazine HCl (Chlorpromazine Hcl 25 Mg Tablet) 25 mg PO TID [facility] Last Admin: 02/03/25 20:28 Dose: 25 mg Clonazepam (Clonazepam 1 Mg Tablet) 1 mg PO TID [facility] Last Admin: 02/03/25 20:28 Dose: 1 mg Diphenhydramine HCl (Diphenhydramine Hcl 25 Mg Capsule) 50 mg PO BEDTIME PRN PRN Reason: Sleep Hydroxyzine HCl (Hydroxyzine Hcl 25 Mg Tablet) 25 mg PO BEDTIME [facility] Last Admin: 02/03/25 20:28 Dose: 25 mg Hydroxyzine HCl (Hydroxyzine Hcl 25 Mg Tablet) 25 mg PO Q6H PRN PRN Reason: mild anxiety Ibuprofen (Ibuprofen 800 Mg Tablet) 800 mg PO Q8H PRN PRN Reason: shoulder pain Last Admin: 02/03/25 20:31 Dose: 800 mg Levothyroxine Sodium (Levothyroxine Sodium 50 Mcg Tablet) 50 mcg PO DAILY@0600 [facility] Last Admin: 02/04/25 06:59 Dose: 50 mcg Lidocaine (Lidocaine 4 % Patch Adh..Patch) 1 patch TRANSDERMA DAILY [facility]; Protocol Last Admin: 02/03/25 08:08 Dose: 1 patch [place] Carbonate (S[place]cliffe Carbonate Er 450 Mg Tablet.Er) 450 mg PO BEDTIME [facility] Last Admin: 02/03/25 20:28 Dose: 450 mg Magnesium Hydroxide (Milk Of Magnesia 30 Ml Oral.Susp) 30 ml PO DAILY PRN PRN Reason: Constipation Multi-Ingred Cream/Lotion/Oil/Oint (Mineral Oil/Petrolatum,White 106 Gm Tube) 1 appl TOPICAL TID [facility]; Protocol Last Admin: 02/03/25 20:33 Dose: 1 appl Multivitamins/Vitamin C (Multivitamin Tablet) 1 tab PO DAILY [facility] Last Admin: 02/03/25 08:09 Dose: 1 tab Nicotine (Nicotine 21 Mg Patch.Td24) 21 mg TRANSDERMA DAILY PRN PRN Reason: smoking cessation Nicotine Polacrilex (Nicotine Polacrilex 2 Mg Gum) 4 mg BUCCAL Q2H PRN PRN Reason: Nicotine Cravings Olanzapine (Olanzapine 5 Mg Tablet) 5 mg PO TID PRN PRN Reason: agitation Last Admin: 01/27/25 15:21 Dose: 5 mg Quetiapine Fumarate (Quetiapine Fumarate 400 Mg Tablet) 400 mg PO BEDTIME [facility] Last Admin: 02/03/25 20:28 Dose: 400 mg Quetiapine Fumarate 200 mg/ (Quetiapine Fumarate 50 mg) 250 mg PO DAILY [facility] Last Admin: 02/03/25 08:08 Dose: 250 mg Sertraline HCl (Sertraline Hcl 50 Mg Tablet) 150 mg PO DAILY [facility] Last Admin: 02/03/25 08:09 Dose: 150 mg Valproic Acid (Valproic Acid Liquid 250 Mg/5 Ml Solution) 1,000 mg PO BID [facility] Last Admin: 02/03/25 20:27 Dose: 1,000 mg Allergies Allergies Allergy/AdvReac Type Severity Reaction Status Date / Time haloperidol [From HALDOL] Allergy Intermediate LOWERS Verified 01/24/25 15:43 HEART RATE trazodone AdvReac Intermediate Hives Verified 01/24/25 15:43 Assessment & Plan Assessment & Plan (1) Schizoaffective disorder: Qualifiers: Schizoaffective disorder type: unspecified Qualified Code(s): F25.9 - Schizoaffective disorder, unspecified Status: Acute Code(s): F25.9 - Schizoaffective disorder, unspecified (2) Chronic post-traumatic stress disorder (PTSD): Status: Acute Code(s): F43.12 - Post-traumatic stress disorder, chronic (3) Polysubstance use disorder: Status: Acute Code(s): F19.90 - Other psychoactive substance use, unspecified, uncomplicated Plan Admit, Section 12B, 15 minute checks Diagnostics as needed Re-start regime S[place]cliffe 450 mg ER HS Collateral contact Encourage milieu involvement [facility] application for services Probable Section 05/30. 01/27/25: Observe Continue current regime/plan CAT Brain 01/28/25: Continue current plans and regimen 01/29: Continue current regimen and plans 01/31/25: No med changes today. 02/02: Decrease chlorpromazine to 25 mg tid 02/03: Xray R shoulder Orthopedic consult R shoulder pain Continue current regime Section 7 hearing 02/06/25. 02/04- nsaid tid with meals- if tolerated, PT if available- encourage pt to use left side- to help herself- no change med for psych pending hearing on sec 7 Patient educated on: diagnosis, medication risk/benefits and medical condition Informed Consent: understands and further education needed (re psych issues she says are fine ) Reason for continued inpatient stay Substantial Risk for: inability to function and rapid decompensation Time Spent With Patient Time: Total time managing care of this patient today ____ minutes.
[2025-02-04] MEDS: Sertraline HCL 50 MG TABLET 150 MG PO (09:27)
[2025-02-04] MEDS: Valproic Acid Liquid 250 MG/5 ML SOLUTION 1000 MG PO ×2 (09:27→20:45)
[2025-02-04] MEDS: clonazePAM 1 MG TABLET PO ×3 (09:28→20:45)
[2025-02-04] MEDS: Multivitamin TABLET 1 TAB PO (09:28)
[2025-02-04] MEDS: Benztropine Mesylate 0.5 MG TABLET PO ×2 (09:28→20:44)
[2025-02-04] MEDS: chlorproMAZINE HCl 25 MG TABLET PO ×3 (09:28→20:45)
[2025-02-04 09:38] VITALS: BP 117/59; PULSE 72; RESP 16; TEMP 36.3; O2SAT 100
[2025-02-04] MEDS: Lidocaine 4 % Patch ADH..PATCH 1 PATCH TRANSDERMA (10:10)
[2025-02-04] MEDS: Ibuprofen 800 MG TABLET PO (16:46)
[2025-02-04 19:55] VITALS: BP 155/70; PULSE 88; RESP 15; TEMP 36.4; O2SAT 96
[2025-02-04] MEDS: Lithium Carbonate ER 450 MG TABLET.ER PO (20:44)
[2025-02-04] MEDS: hydrOXYzine HCL 25 MG TABLET PO (20:45)
[2025-02-04] MEDS: QUEtiapine Fumarate 400 MG TABLET PO (20:45)
[2025-02-05] MEDS: Levothyroxine Sodium 50 MCG TABLET PO (06:34)
[2025-02-05] MEDS: Multivitamin TABLET 1 TAB PO (08:00)
[2025-02-05] MEDS: Ibuprofen 800 MG TABLET PO ×2 (08:00→11:44)
[2025-02-05] MEDS: Benztropine Mesylate 0.5 MG TABLET PO ×2 (08:00→20:03)
[2025-02-05] MEDS: Sertraline HCL 50 MG TABLET 150 MG PO (08:01)
[2025-02-05] MEDS: chlorproMAZINE HCl 25 MG TABLET PO ×3 (08:01→20:02)
[2025-02-05] MEDS: clonazePAM 1 MG TABLET PO ×3 (08:01→20:04)
[2025-02-05] MEDS: Valproic Acid Liquid 250 MG/5 ML SOLUTION 1000 MG PO ×2 (08:01→20:04)
[2025-02-05] MEDS: Mineral Oil/Petrolatum,White 106 GM Tube 1 APPL TOPICAL (08:04)
[2025-02-05 08:07] VITALS: BP 130/66; PULSE 79; RESP 18; TEMP 36.8; O2SAT 95
[2025-02-05] MEDS: Lidocaine 4 % Patch ADH..PATCH 1 PATCH TRANSDERMA (11:45)
--- NOTE | 2025-02-05 11:47 | P.PNPSI_ITS ---
Subjective Subjective Date of Service: 02/05/25 Reason For Visit: depressed Subjective Notes: Hawkins Warning and Section 7 Healthcare Proxy: No Guardianship: No Medical Problems Affecting Mental Status: Yes (shoulder pain) Interim History: 59 yo HF with limited insight- gave her hawkins warning- wants seroquel increased - discussed I had increased hs to 300 from 250mg but she says might move some from am seroquel dose to pm- I mistook am dose of 250mg made it 300mg but pt was on 400mg qhs and 250mg qam - will decrease am by 100mg and inc pm by 100mg , same total dosage but will also get ekg and draw labs for dep and lithium levels tomorrow- Medication Compliance: Yes Side effects from medications: No Attending Groups: No Review of Systems no change ongoing shoulder pain discussed giving her tylenol instead of ibuprofen since on lithium Medical Review of Systems: unchanged Mental Status Exam Mental Status Exam Patient Appearance: Well Grooomed Patient Orientation: Person, Place and Situation Level of Consciousness: Awake Patient Behavior: Avoidant Affect Description: Apathetic and Blunted Patient Cognition Impaired: No Ability to Follow Directions: Fair Speech Pattern: Clear Thought Process: Distracted Thought Content: positive for Poverty of Content Judgement: Poor Diagnostics Vital Signs (24Hr): Vital Signs - 24 hr 02/04/25 19:55 02/05/25 08:07 Temperature 97.6 F 98.2 F Pulse Rate 88 79 Respiratory Rate 15 18 Blood Pressure 155/70 H 130/66 Pulse Oximetry 96 95 Oxygen Delivery Method Room Air BMI result Body Mass Index 29.2 Labs 01/24/25 17:06 01/24/25 17:06 Imaging Radiology Impressions: ITS Impressions Shoulder X-Ray 02/03/25 15:38 IMPRESSION: 1. No fracture or dislocation. 2. Moderate to severe calcific tendinopathy of the supraspinatus tendon. This has mildly improved when compared with 05/09/2024. Electronically signed by: Ji Nunes MD 02/03/2025 03:56 PM EDT Medications Medications Current Medications Acetaminophen (Acetaminophen 325 Mg Tablet) 650 mg PO Q6H PRN PRN Reason: Headache/Pain, Scale 1-10 Last Admin: 02/01/25 11:57 Dose: 650 mg Al Hydroxide/Mg Hydroxide (Magnesium Hydrox/Alum Hydrox 30 Ml Oral.Susp) 30 ml PO Q6H PRN PRN Reason: Heartburn/Nausea Benztropine Mesylate (Benztropine Mesylate 0.5 Mg Tablet) 0.5 mg PO BID [facility] Last Admin: 02/05/25 08:00 Dose: 0.5 mg Chlorpromazine HCl (Chlorpromazine Hcl 25 Mg Tablet) 25 mg PO TID [facility] Last Admin: 02/05/25 08:01 Dose: 25 mg Clonazepam (Clonazepam 1 Mg Tablet) 1 mg PO TID [facility] Last Admin: 02/05/25 08:01 Dose: 1 mg Diphenhydramine HCl (Diphenhydramine Hcl 25 Mg Capsule) 50 mg PO BEDTIME PRN PRN Reason: Sleep Hydroxyzine HCl (Hydroxyzine Hcl 25 Mg Tablet) 25 mg PO BEDTIME [facility] Last Admin: 02/04/25 20:45 Dose: 25 mg Hydroxyzine HCl (Hydroxyzine Hcl 25 Mg Tablet) 25 mg PO Q6H PRN PRN Reason: mild anxiety Ibuprofen (Ibuprofen 800 Mg Tablet) 800 mg PO TIDWM [facility] Last Admin: 02/05/25 11:44 Dose: 800 mg Levothyroxine Sodium (Levothyroxine Sodium 50 Mcg Tablet) 50 mcg PO DAILY@0600 [facility] Last Admin: 02/05/25 06:34 Dose: 50 mcg Lidocaine (Lidocaine 4 % Patch Adh..Patch) 1 patch TRANSDERMA DAILY [facility]; Protocol Last Admin: 02/05/25 11:45 Dose: 1 patch [place]ayson Carbonate ([place]ayson Carbonate Er 450 Mg Tablet.Er) 450 mg PO BEDTIME [facility] Last Admin: 02/04/25 20:44 Dose: 450 mg Magnesium Hydroxide (Milk Of Magnesia 30 Ml Oral.Susp) 30 ml PO DAILY PRN PRN Reason: Constipation Multi-Ingred Cream/Lotion/Oil/Oint (Mineral Oil/Petrolatum,White 106 Gm Tube) 1 appl TOPICAL TID [facility]; Protocol Last Admin: 02/05/25 08:04 Dose: 1 appl Multivitamins/Vitamin C (Multivitamin Tablet) 1 tab PO DAILY [facility] Last Admin: 02/05/25 08:00 Dose: 1 tab Nicotine (Nicotine 21 Mg Patch.Td24) 21 mg TRANSDERMA DAILY PRN PRN Reason: smoking cessation Nicotine Polacrilex (Nicotine Polacrilex 2 Mg Gum) 4 mg BUCCAL Q2H PRN PRN Reason: Nicotine Cravings Olanzapine (Olanzapine 5 Mg Tablet) 5 mg PO TID PRN PRN Reason: agitation Last Admin: 01/27/25 15:21 Dose: 5 mg Quetiapine Fumarate (Quetiapine Fumarate 400 Mg Tablet) 400 mg PO BEDTIME [facility] Last Admin: 02/04/25 20:45 Dose: 400 mg Quetiapine Fumarate 200 mg/ (Quetiapine Fumarate 50 mg) 250 mg PO DAILY [facility] Last Admin: 02/05/25 08:00 Dose: 250 mg Sertraline HCl (Sertraline Hcl 50 Mg Tablet) 150 mg PO DAILY [facility] Last Admin: 02/05/25 08:01 Dose: 150 mg Valproic Acid (Valproic Acid Liquid 250 Mg/5 Ml Solution) 1,000 mg PO BID [facility] Last Admin: 02/05/25 08:01 Dose: 1,000 mg Allergies Allergies Allergy/AdvReac Type Severity Reaction Status Date / Time haloperidol [From HALDOL] Allergy Intermediate LOWERS Verified 01/24/25 15:43 HEART RATE trazodone AdvReac Intermediate Hives Verified 01/24/25 15:43 Assessment & Plan Assessment & Plan (1) Schizoaffective disorder: Qualifiers: Schizoaffective disorder type: unspecified Qualified Code(s): F25.9 - Schizoaffective disorder, unspecified Status: Acute Code(s): F25.9 - Schizoaffective disorder, unspecified (2) Chronic post-traumatic stress disorder (PTSD): Status: Acute Code(s): F43.12 - Post-traumatic stress disorder, chronic (3) Polysubstance use disorder: Status: Acute Code(s): F19.90 - Other psychoactive substance use, unspecified, uncomplicated Plan Admit, Section 12B, 15 minute checks Diagnostics as needed Re-start regime [place] 450 mg ER HS Collateral contact Encourage milieu involvement [facility] application for services Probable Section 05/30. 01/27/25: Observe Continue current regime/plan CAT Brain 01/28/25: Continue current plans and regimen 01/29: Continue current regimen and plans 01/31/25: No med changes today. 02/02: Decrease chlorpromazine to 25 mg tid 02/03: Xray R shoulder Orthopedic consult R shoulder pain Continue current regime Section 7 hearing 02/06/25. 02/04- nsaid tid with meals- if tolerated, PT if available- encourage pt to use left side- to help herself- no change med for psych pending hearing on sec 7 02/05 changed nsaid to tylenol due to lithium, will check labs tomorrow, get ekg today- re seroquel and lithium last ekg 01/25 was borderline 469 qtc Patient educated on: medication risk/benefits and medical condition Informed Consent: understands Reason for continued inpatient stay Substantial Risk for: inability to function, rapid decompensation and med/psych decompensation Time Spent With Patient Time: Total time managing care of this patient today ____ minutes.
[2025-02-05] MEDS: Acetaminophen 325 MG TABLET 975 MG PO ×2 (14:03→20:03)
[2025-02-05] MEDS: Magnesium Hydrox/Alum Hydrox 30 ML ORAL.SUSP PO (17:43)
[2025-02-05 19:42] VITALS: BP 126/63; PULSE 93; RESP 15; TEMP 36.3; O2SAT 96
[2025-02-05] MEDS: QUEtiapine Fumarate 100 MG TABLET 500 MG PO (20:02)
[2025-02-05] MEDS: hydrOXYzine HCL 25 MG TABLET PO (20:03)
[2025-02-05] MEDS: Lithium Carbonate ER 450 MG TABLET.ER PO (20:04)
[2025-02-06 05:30] VITALS: BP 117/67; PULSE 83; RESP 15; TEMP 36.4; O2SAT 95
[2025-02-06] MEDS: Levothyroxine Sodium 50 MCG TABLET PO (05:30)
[2025-02-06 07:50] VITALS: BP 121/56; PULSE 86; TEMP 36.3; O2SAT 93
[2025-02-06] MEDS: Lidocaine 4 % Patch ADH..PATCH 1 PATCH TRANSDERMA (08:09)
[2025-02-06] MEDS: Acetaminophen 325 MG TABLET 975 MG PO ×2 (08:10→19:11)
[2025-02-06] MEDS: Valproic Acid Liquid 250 MG/5 ML SOLUTION 1000 MG PO ×2 (08:10→20:53)
[2025-02-06] MEDS: Multivitamin TABLET 1 TAB PO (08:10)
[2025-02-06] MEDS: clonazePAM 1 MG TABLET PO ×3 (08:11→20:44)
[2025-02-06] MEDS: Benztropine Mesylate 0.5 MG TABLET PO ×2 (08:11→20:44)
[2025-02-06] MEDS: Sertraline HCL 50 MG TABLET 150 MG PO (08:11)
[2025-02-06] MEDS: chlorproMAZINE HCl 25 MG TABLET PO ×3 (08:11→20:43)
[2025-02-06] MEDS: QUEtiapine Fumarate 50 MG TABLET 150 MG PO (08:11)
[2025-02-06] MEDS: Mineral Oil/Petrolatum,White 106 GM Tube 1 APPL TOPICAL ×2 (08:12→15:00)
[2025-02-06 09:31] LABS: MANUAL DIFF FLAG NO
[2025-02-06 09:34] LABS: Basophils Percent Auto 0.4 % (0-2); Eosinophils Absolute Auto 0.1 X10*3/uL (0.0-0.4); Eosinophils Percent Auto 2.9 % (0-4); Hematocrit 34.7 % (37.0-47.0); Hemoglobin 11.1 g/dl (12.0-16.0); Imm Gran Abs Auto 0.04 X10*3/uL (0.00-0.03); Imm Gran Pct Auto 1.5 % (0.0-0.4); Lymphocytes Absolute Auto 1.2 X10*3/uL (1.2-4.9); Lymphocytes Percent Auto 42.5 % (20-40); Mean Corpuscular Hemoglobin 29.6 pg (27.0-33.0); Mean Corpuscular Volume 92.5 fL (80.0-98.0); Monocytes Absolute Auto 0.4 X10*3/uL (0.1-1.2); Monocytes Percent Auto 15.4 % (2-11); Neutrophils Percent Auto 37.3 % (45-73); Red Blood Count 3.75 X10*6/uL (4.20-5.50); Red Cell Distribution Width 14.2 % (11.0-16.0); White Blood Count 2.7 X10*3/uL (4.8-10.8)
[2025-02-06 09:43] LABS: Lithium 0.59 mmol/L (0.60-1.20)
[2025-02-06 09:48] LABS: Valproate 98.4 mcg/mL (50.0-100.0)
[2025-02-06 09:50] LABS: Alanine Aminotransferase 25 U/L (0-31); Albumin Level 3.5 g/dL (3.5-5.0); Alkaline Phosphatase 53 U/L (39-117); Anion Gap 12 (12-20); Aspartate Amino Transferase 35 U/L (5-31); Bilirubin Total 0.2 mg/dL (0.0-1.0); Blood Urea Nitrogen 10 mg/dL (9-16); Calcium 9.1 mg/dL (8.4-10.2); Carbon Dioxide 30 mmol/L (22-29); Chloride 103 mmol/L (96-108); Creatinine Clr Calc Pharmacy 90.4; Estimated Glomerular Filt Rate > 60; Glucose Fasting 120 mg/dL (60-99); Potassium 4.7 mmol/L (3.3-5.1); Sodium 140 mmol/L (135-145); Total Protein 7.5 g/dL (6.5-8.0)
--- NOTE | 2025-02-06 09:50 | ECG_ITS ---
Test Reason : CK QT Blood Pressure : */* mmHG Vent. Rate : 83 BPM Atrial Rate : 83 BPM P-R Int : 122 ms QRS Dur : 84 ms QT Int : 400 ms P-R-T Axes : 70 54 70 degrees QTcB Int : 470 ms Normal sinus rhythm Nonspecific T wave abnormality Prolonged QT Abnormal ECG When compared with ECG of 25-Jan-2025 11:49, Nonspecific T wave abnormality, worse in Anterior leads Referred By: Mariah Dhaliwal Electronically Signed By: Gautam Chambers
[2025-02-06 09:55] LABS: Platelet Count 117 X10*3/uL (160-400)
--- NOTE | 2025-02-06 13:18 | HO.PSYCHPN ---
Subjective Subjective Date of Service: 02/06/25 Reason For Visit: depressed Subjective Notes: Conditional Voluntary (signed today) Healthcare Proxy: No Guardianship: No Medical Problems Affecting Mental Status: No Interim History: Pt signed a conditional voluntary with credit support counselor present today. She agrees to her plan of care, as a result we will not attend court for Section Seven petition. Her litigation attorney associate agrees and made this suggestion. Pt agrees to proceed with [facility] She discussed fears of peers and fears being hurt by peers on the unit. Discussed safety mechanisms that are in place to help her maintain safety. Visable in milieu, listening to music, social with peers. Medication Compliance: Yes Side effects from medications: No Attending Groups: Intermittent Review of Systems L hand pain Medical Review of Systems: unchanged Review of Systems Review of Systems Left Hand Pain Mental Status Exam Mental Status Exam Patient Appearance: Appropriate Patient Orientation: Person, Place, Time and Situation Level of Consciousness: Alert Patient Behavior: Talkative and Good Eye Contact Mood Description: Depressed Affect Description: Flat Patient Cognition Impaired: No Ability to Follow Directions: Good Speech Pattern: Spontaneous Speech Memory Description: Episodic Impaired Hallucinations: Auditory Delusions: Paranoid Ideation and Present Perceptual Disturbances: Derealization Thought Process: Rumination Thought Content: positive for Obsessional Thoughts, positive for Circumstantial, positive for Perseveration and positive for Homicidal Ideation Judgement: Poor Diagnostics Vital Signs (24Hr): Vital Signs - 24 hr 02/05/25 19:42 02/06/25 05:30 02/06/25 07:50 Temperature 97.3 F 97.5 F 97.3 F Pulse Rate 93 83 86 Respiratory Rate 15 15 Blood Pressure 126/63 117/67 121/56 L Pulse Oximetry 96 95 93 Oxygen Delivery Method Room Air BMI result Body Mass Index 29.2 Labs 02/06/25 09:16 02/06/25 09:16 Labs: Laboratory Results - last 48 hr 02/06/25 09:16 WBC 2.7 L RBC 3.75 L Hgb 11.1 L Hct 34.7 L MCV 92.5 MCH 29.6 MCHC 32.0 RDW 14.2 Plt Count 117 L D MPV 10.0 Immature Gran % (Auto) 1.5 H Neut % (Auto) 37.3 L Lymph % (Auto) 42.5 H [place] % (Auto) 15.4 H Eos % (Auto) 2.9 Baso % (Auto) 0.4 Lymph # (Auto) 1.2 [place] # (Auto) 0.4 Eos # (Auto) 0.1 Baso # (Auto) 0.0 Abs Immat Gran (auto) 0.04 H Absolute Neuts (auto) 1.0 L Absolute Nucleated RBC 0.000 Nucleated RBC % (auto) 0.0 Sodium 140 Potassium 4.7 D Chloride 103 Carbon Dioxide 30 H Anion Gap 12 BUN 10 Creatinine 0.64 Estim Creat Clear Calc 90.4 Estimated GFR > 60 Fasting Glucose 120 H Calcium 9.1 Total Bilirubin 0.2 AST 35 H ALT 25 Alkaline Phosphatase 53 Total Protein 7.5 Albumin 3.5 Valproic Acid 98.4 [place] 0.59 L Imaging Radiology Impressions: ITS Impressions Shoulder X-Ray 02/03/25 15:38 IMPRESSION: 1. No fracture or dislocation. 2. Moderate to severe calcific tendinopathy of the supraspinatus tendon. This has mildly improved when compared with 05/09/2024. Electronically signed by: Ji Nunes MD 02/03/2025 03:56 PM EDT Medications Medications Current Medications Acetaminophen (Acetaminophen 325 Mg Tablet) 975 mg PO BID [facility] Last Admin: 02/06/25 08:10 Dose: 975 mg Al Hydroxide/Mg Hydroxide (Magnesium Hydrox/Alum Hydrox 30 Ml Oral.Susp) 30 ml PO Q6H PRN PRN Reason: Heartburn/Nausea Last Admin: 02/05/25 17:43 Dose: 30 ml Benztropine Mesylate (Benztropine Mesylate 0.5 Mg Tablet) 0.5 mg PO BID [facility] Last Admin: 02/06/25 08:11 Dose: 0.5 mg Chlorpromazine HCl (Chlorpromazine Hcl 25 Mg Tablet) 25 mg PO TID [facility] Last Admin: 02/06/25 08:11 Dose: 25 mg Clonazepam (Clonazepam 1 Mg Tablet) 1 mg PO TID [facility] Last Admin: 02/06/25 08:11 Dose: 1 mg Diphenhydramine HCl (Diphenhydramine Hcl 25 Mg Capsule) 50 mg PO BEDTIME PRN PRN Reason: Sleep Hydroxyzine HCl (Hydroxyzine Hcl 25 Mg Tablet) 25 mg PO BEDTIME [facility] Last Admin: 02/05/25 20:03 Dose: 25 mg Hydroxyzine HCl (Hydroxyzine Hcl 25 Mg Tablet) 25 mg PO Q6H PRN PRN Reason: mild anxiety Ibuprofen (Ibuprofen 800 Mg Tablet) 800 mg PO DAILY PRN PRN Reason: Pain, Severe (Pain Scale 7-10) Levothyroxine Sodium (Levothyroxine Sodium 50 Mcg Tablet) 50 mcg PO DAILY@0600 [facility] Last Admin: 02/06/25 05:30 Dose: 50 mcg Lidocaine (Lidocaine 4 % Patch Adh..Patch) 1 patch TRANSDERMA DAILY [facility]; Protocol Last Admin: 02/06/25 08:09 Dose: 1 patch [place] Carbonate ([place] Carbonate Er 450 Mg Tablet.Er) 450 mg PO BEDTIME [facility] Last Admin: 02/05/25 20:04 Dose: 450 mg Magnesium Hydroxide (Milk Of Magnesia 30 Ml Oral.Susp) 30 ml PO DAILY PRN PRN Reason: Constipation Multi-Ingred Cream/Lotion/Oil/Oint (Mineral Oil/Petrolatum,White 106 Gm Tube) 1 appl TOPICAL TID [facility]; Protocol Last Admin: 02/06/25 08:12 Dose: 1 appl Multivitamins/Vitamin C (Multivitamin Tablet) 1 tab PO DAILY [facility] Last Admin: 02/06/25 08:10 Dose: 1 tab Nicotine (Nicotine 21 Mg Patch.Td24) 21 mg TRANSDERMA DAILY PRN PRN Reason: smoking cessation Nicotine Polacrilex (Nicotine Polacrilex 2 Mg Gum) 4 mg BUCCAL Q2H PRN PRN Reason: Nicotine Cravings Olanzapine (Olanzapine 5 Mg Tablet) 5 mg PO TID PRN PRN Reason: agitation Last Admin: 01/27/25 15:21 Dose: 5 mg Quetiapine Fumarate (Quetiapine Fumarate 50 Mg Tablet) 150 mg PO DAILY [facility] Last Admin: 02/06/25 08:11 Dose: 150 mg Quetiapine Fumarate (Quetiapine Fumarate 100 Mg Tablet) 500 mg PO BEDTIME [facility] Last Admin: 02/05/25 20:02 Dose: 500 mg Sertraline HCl (Sertraline Hcl 50 Mg Tablet) 150 mg PO DAILY [facility] Last Admin: 02/06/25 08:11 Dose: 150 mg Valproic Acid (Valproic Acid Liquid 250 Mg/5 Ml Solution) 1,000 mg PO BID [facility] Last Admin: 02/06/25 08:10 Dose: 1,000 mg Allergies Allergies Allergy/AdvReac Type Severity Reaction Status Date / Time haloperidol [From HALDOL] Allergy Intermediate LOWERS Verified 01/24/25 15:43 HEART RATE trazodone AdvReac Intermediate Hives Verified 01/24/25 15:43 Assessment & Plan Assessment & Plan (1) Schizoaffective disorder: Qualifiers: Schizoaffective disorder type: unspecified Qualified Code(s): F25.9 - Schizoaffective disorder, unspecified Status: Acute Code(s): F25.9 - Schizoaffective disorder, unspecified (2) Chronic post-traumatic stress disorder (PTSD): Status: Acute Code(s): F43.12 - Post-traumatic stress disorder, chronic (3) Polysubstance use disorder: Status: Acute Code(s): F19.90 - Other psychoactive substance use, unspecified, uncomplicated Plan Admit, Section 12B, 15 minute checks Diagnostics as needed Re-start regime [place] 450 mg ER HS Collateral contact Encourage milieu involvement [facility] application for services Probable Section 05/30. 01/27/25: Observe Continue current regime/plan CAT Brain 01/28/25: Continue current plans and regimen 01/29: Continue current regimen and plans 01/31/25: No med changes today. 02/02: Decrease chlorpromazine to 25 mg tid 02/03: Xray R shoulder Orthopedic consult R shoulder pain Continue current regime Section 7 hearing 02/06/25. 02/04- nsaid tid with meals- if tolerated, PT if available- encourage pt to use left side- to help herself- no change med for psych pending hearing on sec 7 02/05 changed nsaid to tylenol due to lithium, will check labs tomorrow, get ekg today- re seroquel and lithium last ekg 01/25 was borderline 469 qtc 02/06: Li 0.5 BUN 10 Creat 0.64 Valproate 98.4 EKG QTc 470 Reason for continued inpatient stay Substantial Risk for: rapid decompensation Time Spent With Patient Time: Total time managing care of this patient today ____ minutes.
[2025-02-06] MEDS: Ibuprofen 800 MG TABLET PO (14:59)
[2025-02-06 20:00] VITALS: BP 118/70; PULSE 91; TEMP 36.7; O2SAT 95
[2025-02-06] MEDS: hydrOXYzine HCL 25 MG TABLET PO (20:42)
[2025-02-06] MEDS: Lithium Carbonate ER 450 MG TABLET.ER PO (20:42)
[2025-02-06] MEDS: QUEtiapine Fumarate 100 MG TABLET 500 MG PO (20:43)
[2025-02-07] MEDS: Levothyroxine Sodium 50 MCG TABLET PO (06:09)
[2025-02-07 08:22] VITALS: BP 120/69; PULSE 78; TEMP 36; O2SAT 97
[2025-02-07] MEDS: chlorproMAZINE HCl 25 MG TABLET PO ×2 (08:37→14:32)
[2025-02-07] MEDS: Acetaminophen 325 MG TABLET 975 MG PO ×2 (08:37→20:36)
[2025-02-07] MEDS: clonazePAM 1 MG TABLET PO ×3 (08:38→20:36)
[2025-02-07] MEDS: Valproic Acid Liquid 250 MG/5 ML SOLUTION 1000 MG PO ×2 (08:38→20:37)
[2025-02-07] MEDS: Sertraline HCL 50 MG TABLET 150 MG PO (08:38)
[2025-02-07] MEDS: Benztropine Mesylate 0.5 MG TABLET PO ×2 (08:38→20:39)
[2025-02-07] MEDS: Multivitamin TABLET 1 TAB PO (08:38)
[2025-02-07] MEDS: QUEtiapine Fumarate 50 MG TABLET 150 MG PO (08:38)
[2025-02-07] MEDS: Mineral Oil/Petrolatum,White 106 GM Tube 1 APPL TOPICAL (08:43)
[2025-02-07] MEDS: Lidocaine 4 % Patch ADH..PATCH 1 PATCH TRANSDERMA (09:05)
[2025-02-07] MEDS: Ibuprofen 800 MG TABLET PO (14:31)
--- NOTE | 2025-02-07 16:30 | P.CONHOSP_ITS ---
History of Present Illness Data of Consult Service Date: 02/07/25 Requesting physician: Mariah Dhaliwal Primary Care Provider: None Physician HPI Reason for consult: L hand edema 59-year-old female with history of polysubstance use disorder, hypothyroidism, schizoaffective disorder bipolar type, borderline personality disorder admitted to adult Psychiatry with consult placed hospitalist service due to left hand edema with question of cellulitis. The patient reports she woke up this morning with significant swelling and mild redness of the left hand. She states this was noted by 1 of the other patients. No injury reported. Has been using ice on the hand with good improvement in swelling. She states the pain extends into the wrist limited range of motion. There is also similar pain in the right wrist. She states that she has had periods of similar pain and swelling in other joints on her body. Denies any known history of autoimmune conditions such as rheumatoid arthritis. She also reports that her arms feel heavy secondary to pain in everardo shoulders. No known history of gout. No fevers, chills. She is a substance abuser who smokes crack cocaine as well as marijuana. Unclear if patient has history of IV drug abuse which would put her at risk for MRSA. She does smoke cigarettes on a daily basis. [facility] Medical History Polysubstance use disorder Hypertension Bipolar 1 disorder Borderline personality disorder Depression Chronic post-traumatic stress disorder (PTSD) Hypothyroidism Social History Household Members: None Housing: Homeless Do you presently have visiting nurse or other home services: No Unable to assess alcohol history related to: Unknown Alcohol intake: unknown Patient Tobacco Use Status: Current everyday Tobacco user Tobacco use type: Cigarette Smoked in Last 30 Days: Yes Patient Interested in Nicotine Replacement: Yes Patient Given Instructions on How to Stop Smoking: Yes Date Education Initiated: 01/25/25 Second Hand Smoke Exposure: No Use of substances other than those prescribed or required for medical reasons: Yes Substance Use Type: Crack/Cocaine and Marijuana Substance Use Frequency: Chronic Longstanding Last Used Substance: Just Prior to Admission Currently Displaying Signs/Symptoms of Drug Intoxication Withdrawal: No Any prior treatment program specific to substance use: Yes Advance Directives: No Advance Directives Information Provided: No Do you have thoughts of harming others: None Do you have a plan to hurt others: No Plan Recently lost weight without trying: Unsure How much weight loss: Unsure Eating poorly because of decreased appetite: No Nutrition screen score: 4 Nutrition Risks: No Nutritional Risk Patient : No : No Poor oral hygiene: No service: No Sexual orientation: Decline to Answer Meds Allergies Allergy/AdvReac Type Severity Reaction Status Date / Time haloperidol [From HALDOL] Allergy Intermediate LOWERS Verified 01/24/25 15:43 HEART RATE trazodone AdvReac Intermediate Hives Verified 01/24/25 15:43 Active Medications: Current Medications Acetaminophen (Acetaminophen 325 Mg Tablet) 975 mg PO BID [facility] Last Admin: 02/07/25 08:37 Dose: 975 mg Al Hydroxide/Mg Hydroxide (Magnesium Hydrox/Alum Hydrox 30 Ml Oral.Susp) 30 ml PO Q6H PRN PRN Reason: Heartburn/Nausea Last Admin: 02/05/25 17:43 Dose: 30 ml Benztropine Mesylate (Benztropine Mesylate 0.5 Mg Tablet) 0.5 mg PO BID [facility] Last Admin: 02/07/25 08:38 Dose: 0.5 mg Chlorpromazine HCl (Chlorpromazine Hcl 25 Mg Tablet) 25 mg PO TID [facility] Last Admin: 02/07/25 14:32 Dose: 25 mg Clonazepam (Clonazepam 1 Mg Tablet) 1 mg PO TID [facility] Last Admin: 02/07/25 14:32 Dose: 1 mg Diphenhydramine HCl (Diphenhydramine Hcl 25 Mg Capsule) 50 mg PO BEDTIME PRN PRN Reason: Sleep Hydroxyzine HCl (Hydroxyzine Hcl 25 Mg Tablet) 25 mg PO BEDTIME [facility] Last Admin: 02/06/25 20:42 Dose: 25 mg Hydroxyzine HCl (Hydroxyzine Hcl 25 Mg Tablet) 25 mg PO Q6H PRN PRN Reason: mild anxiety Ibuprofen (Ibuprofen 800 Mg Tablet) 800 mg PO DAILY PRN PRN Reason: Pain, Severe (Pain Scale 7-10) Last Admin: 02/07/25 14:31 Dose: 800 mg Levothyroxine Sodium (Levothyroxine Sodium 50 Mcg Tablet) 50 mcg PO DAILY@0600 [facility] Last Admin: 02/07/25 06:09 Dose: 50 mcg Lidocaine (Lidocaine 4 % Patch Adh..Patch) 1 patch TRANSDERMA DAILY [facility]; Protocol Last Admin: 02/07/25 09:05 Dose: 1 patch [place] Carbonate ([place] Carbonate Er 450 Mg Tablet.Er) 450 mg PO BEDTIME [facility] Last Admin: 02/06/25 20:42 Dose: 450 mg Magnesium Hydroxide (Milk Of Magnesia 30 Ml Oral.Susp) 30 ml PO DAILY PRN PRN Reason: Constipation Multi-Ingred Cream/Lotion/Oil/Oint (Mineral Oil/Petrolatum,White 106 Gm Tube) 1 appl TOPICAL TID [facility]; Protocol Last Admin: 02/07/25 14:34 Dose: Not Given Multivitamins/Vitamin C (Multivitamin Tablet) 1 tab PO DAILY [facility] Last Admin: 02/07/25 08:38 Dose: 1 tab Nicotine (Nicotine 21 Mg Patch.Td24) 21 mg TRANSDERMA DAILY PRN PRN Reason: smoking cessation Nicotine Polacrilex (Nicotine Polacrilex 2 Mg Gum) 4 mg BUCCAL Q2H PRN PRN Reason: Nicotine Cravings Olanzapine (Olanzapine 5 Mg Tablet) 5 mg PO TID PRN PRN Reason: agitation Last Admin: 01/27/25 15:21 Dose: 5 mg Quetiapine Fumarate (Quetiapine Fumarate 50 Mg Tablet) 150 mg PO DAILY [facility] Last Admin: 02/07/25 08:38 Dose: 150 mg Quetiapine Fumarate (Quetiapine Fumarate 100 Mg Tablet) 500 mg PO BEDTIME [facility] Last Admin: 02/06/25 20:43 Dose: 500 mg Sertraline HCl (Sertraline Hcl 50 Mg Tablet) 150 mg PO DAILY [facility] Last Admin: 02/07/25 08:38 Dose: 150 mg Valproic Acid (Valproic Acid Liquid 250 Mg/5 Ml Solution) 1,000 mg PO BID [facility] Last Admin: 02/07/25 08:38 Dose: 1,000 mg Home Medications ?Medication ?Instructions ?Recorded ?Confirmed ?Last Taken ?Type Seroquel 250 mg PO DAILY 01/24/25 01/24/25 Unknown History Seroquel 400 mg PO BEDTIME 01/24/25 01/24/25 Unknown History Zoloft 150 mg PO DAILY 01/24/25 01/24/25 Unknown History clonazepam 1 mg tablet (Klonopin) 1 mg PO BID 01/24/25 01/24/25 Unknown History divalproex 500 mg tablet,delayed 500 mg PO BID 01/24/25 01/24/25 Unknown History release (Depakote) hydroxyzine pamoate 25 mg capsule 25 mg PO BEDTIME 01/24/25 01/24/25 Unknown History (Vistaril) levothyroxine 50 mcg tablet 50 mcg PO DAILY 01/24/25 01/24/25 Unknown History (Synthroid) temazepam 30 mg capsule (Restoril) 30 mg PO BEDTIME 01/24/25 01/24/25 Unknown History Physical Exam 2 Vital Signs and Narrative: Vital Signs: Last Vital Signs Temp 96.8 F 02/07/25 08:22 Pulse 78 02/07/25 08:22 Resp 15 02/06/25 05:30 BP 120/69 02/07/25 08:22 Pulse Ox 97 02/07/25 08:22 O2 Del Method Room Air 02/07/25 08:22 BMI result Body Mass Index 29.2 Constitutional - Awake and Alert, No apparent distress Eyes - PERRLA, EOMI Extremities - no calf tenderness bilaterally, no swelling Musculoskeletal - mild swelling with faint erythema and ttp over the ulnar/dorsal aspect of the L hand extending from the 1st and 2nd MCP to the wrist. Limited ROM wrist with 4/5 loan service officer strength L hand 2/2 swelling. TTP over the R wrist as well without overlying erythema or warmth Skin - Warm/Dry Neurological - Alert & oriented x3, loan service officer strength as above, otherwise 5/5 strength BUE Results Labs 02/06/25 09:16 02/06/25 09:16 Assessment and Plan (1) Swelling of left hand: Status: Acute Plan 59-year-old female with history of polysubstance use disorder, hypothyroidism, schizoaffective disorder bipolar type, borderline personality disorder admitted to adult Psychiatry with consult placed hospitalist service due to left hand edema with question of cellulitis. #Swelling L hand/wrist -xray L hand/wrist ordered -appearance more consistent with a contusion however no injury -this is not consistent with cellulitis -Given prior history of joint swelling/redness and current symptoms present in the R wrist as well, raises concern for autoimmune condition such as rheumatoid arthritis or less likely gout -Check cbc, crp, esr, SEAN, rheumatoid factor, uric acid -for now recommend NSAIDs and ice pack Will continue following for results
--- NOTE | 2025-02-07 16:37 | HO.PSYCHPN ---
Subjective Subjective Date of Service: 02/07/25 Reason For Visit: depressed Subjective Notes: Conditional Voluntary Healthcare Proxy: No Guardianship: No Medical Problems Affecting Mental Status: No Interim History: Reports L hand pain, edema, will ask hospitalist to evaluate. Discussed chlorpromazine decrease to prn given QTc. Pt agreed. Pt visable in milieu, listening to music We are in process of a search for an eye exam for pt. Medication Compliance: Yes Side effects from medications: No Attending Groups: Intermittent Review of Systems Acute medical concerns: No Review of Systems Review of Systems L hand edema,pain Mental Status Exam Mental Status Exam Patient Appearance: Appropriate Patient Orientation: Person, Place, Time and Situation Level of Consciousness: Alert Patient Behavior: Talkative and Good Eye Contact Mood Description: Depressed Affect Description: Flat Patient Cognition Impaired: No Ability to Follow Directions: Good Speech Pattern: Spontaneous Speech Memory Description: Episodic Impaired Hallucinations: Auditory Delusions: Paranoid Ideation and Present Perceptual Disturbances: Derealization Thought Process: Rumination Thought Content: positive for Obsessional Thoughts, positive for Circumstantial, positive for Perseveration and positive for Homicidal Ideation Judgement: Poor Diagnostics Vital Signs (24Hr): Vital Signs - 24 hr 02/06/25 20:00 02/07/25 08:22 Temperature 98.0 F 96.8 F Pulse Rate 91 78 Blood Pressure 118/70 120/69 Pulse Oximetry 95 97 Oxygen Delivery Method Room Air Room Air BMI result Body Mass Index 29.2 Labs 02/06/25 09:16 02/06/25 09:16 Labs: Laboratory Results - last 48 hr 02/06/25 09:16 WBC 2.7 L RBC 3.75 L Hgb 11.1 L Hct 34.7 L MCV 92.5 MCH 29.6 MCHC 32.0 RDW 14.2 Plt Count 117 L D MPV 10.0 Immature Gran % (Auto) 1.5 H Neut % (Auto) 37.3 L Lymph % (Auto) 42.5 H [place] % (Auto) 15.4 H Eos % (Auto) 2.9 Baso % (Auto) 0.4 Lymph # (Auto) 1.2 [place] # (Auto) 0.4 Eos # (Auto) 0.1 Baso # (Auto) 0.0 Abs Immat Gran (auto) 0.04 H Absolute Neuts (auto) 1.0 L Absolute Nucleated RBC 0.000 Nucleated RBC % (auto) 0.0 Sodium 140 Potassium 4.7 D Chloride 103 Carbon Dioxide 30 H Anion Gap 12 BUN 10 Creatinine 0.64 Estim Creat Clear Calc 90.4 Estimated GFR > 60 Fasting Glucose 120 H Calcium 9.1 Total Bilirubin 0.2 AST 35 H ALT 25 Alkaline Phosphatase 53 Total Protein 7.5 Albumin 3.5 Valproic Acid 98.4 [place] 0.59 L Imaging Radiology Impressions: ITS Impressions Shoulder X-Ray 02/03/25 15:38 IMPRESSION: 1. No fracture or dislocation. 2. Moderate to severe calcific tendinopathy of the supraspinatus tendon. This has mildly improved when compared with 05/09/2024. Electronically signed by: Ji Nunes MD 02/03/2025 03:56 PM EDT RP Medications Medications Current Medications Acetaminophen (Acetaminophen 325 Mg Tablet) 975 mg PO BID [facility] Last Admin: 02/07/25 08:37 Dose: 975 mg Al Hydroxide/Mg Hydroxide (Magnesium Hydrox/Alum Hydrox 30 Ml Oral.Susp) 30 ml PO Q6H PRN PRN Reason: Heartburn/Nausea Last Admin: 02/05/25 17:43 Dose: 30 ml Benztropine Mesylate (Benztropine Mesylate 0.5 Mg Tablet) 0.5 mg PO BID [facility] Last Admin: 02/07/25 08:38 Dose: 0.5 mg Chlorpromazine HCl (Chlorpromazine Hcl 25 Mg Tablet) 25 mg PO TID [facility] Last Admin: 02/07/25 14:32 Dose: 25 mg Clonazepam (Clonazepam 1 Mg Tablet) 1 mg PO TID [facility] Last Admin: 02/07/25 14:32 Dose: 1 mg Diphenhydramine HCl (Diphenhydramine Hcl 25 Mg Capsule) 50 mg PO BEDTIME PRN PRN Reason: Sleep Hydroxyzine HCl (Hydroxyzine Hcl 25 Mg Tablet) 25 mg PO BEDTIME [facility] Last Admin: 02/06/25 20:42 Dose: 25 mg Hydroxyzine HCl (Hydroxyzine Hcl 25 Mg Tablet) 25 mg PO Q6H PRN PRN Reason: mild anxiety Ibuprofen (Ibuprofen 800 Mg Tablet) 800 mg PO DAILY PRN PRN Reason: Pain, Severe (Pain Scale 7-10) Last Admin: 02/07/25 14:31 Dose: 800 mg Levothyroxine Sodium (Levothyroxine Sodium 50 Mcg Tablet) 50 mcg PO DAILY@0600 [facility] Last Admin: 02/07/25 06:09 Dose: 50 mcg Lidocaine (Lidocaine 4 % Patch Adh..Patch) 1 patch TRANSDERMA DAILY [facility]; Protocol Last Admin: 02/07/25 09:05 Dose: 1 patch [place] Carbonate ([place] Carbonate Er 450 Mg Tablet.Er) 450 mg PO BEDTIME [facility] Last Admin: 02/06/25 20:42 Dose: 450 mg Magnesium Hydroxide (Milk Of Magnesia 30 Ml Oral.Susp) 30 ml PO DAILY PRN PRN Reason: Constipation Multi-Ingred Cream/Lotion/Oil/Oint (Mineral Oil/Petrolatum,White 106 Gm Tube) 1 appl TOPICAL TID [facility]; Protocol Last Admin: 02/07/25 14:34 Dose: Not Given Multivitamins/Vitamin C (Multivitamin Tablet) 1 tab PO DAILY [facility] Last Admin: 02/07/25 08:38 Dose: 1 tab Nicotine (Nicotine 21 Mg Patch.Td24) 21 mg TRANSDERMA DAILY PRN PRN Reason: smoking cessation Nicotine Polacrilex (Nicotine Polacrilex 2 Mg Gum) 4 mg [place] Q2H PRN PRN Reason: Nicotine Cravings Olanzapine (Olanzapine 5 Mg Tablet) 5 mg PO TID PRN PRN Reason: agitation Last Admin: 01/27/25 15:21 Dose: 5 mg Quetiapine Fumarate (Quetiapine Fumarate 50 Mg Tablet) 150 mg PO DAILY [facility] Last Admin: 02/07/25 08:38 Dose: 150 mg Quetiapine Fumarate (Quetiapine Fumarate 100 Mg Tablet) 500 mg PO BEDTIME [facility] Last Admin: 02/06/25 20:43 Dose: 500 mg Sertraline HCl (Sertraline Hcl 50 Mg Tablet) 150 mg PO DAILY [facility] Last Admin: 02/07/25 08:38 Dose: 150 mg Valproic Acid (Valproic Acid Liquid 250 Mg/5 Ml Solution) 1,000 mg PO BID [facility] Last Admin: 02/07/25 08:38 Dose: 1,000 mg Allergies Allergies Allergy/AdvReac Type Severity Reaction Status Date / Time haloperidol [From HALDOL] Allergy Intermediate LOWERS Verified 01/24/25 15:43 HEART RATE trazodone AdvReac Intermediate Hives Verified 01/24/25 15:43 Assessment & Plan Assessment & Plan (1) Schizoaffective disorder: Qualifiers: Schizoaffective disorder type: unspecified Qualified Code(s): F25.9 - Schizoaffective disorder, unspecified Status: Acute Code(s): F25.9 - Schizoaffective disorder, unspecified (2) Chronic post-traumatic stress disorder (PTSD): Status: Acute Code(s): F43.12 - Post-traumatic stress disorder, chronic (3) Polysubstance use disorder: Status: Acute Code(s): F19.90 - Other psychoactive substance use, unspecified, uncomplicated Plan Admit, Section 12B, 15 minute checks Diagnostics as needed Re-start regime [place] 450 mg ER HS Collateral contact Encourage milieu involvement [facility] application for services Probable Section 05/30. 01/27/25: Observe Continue current regime/plan CAT Brain 01/28/25: Continue current plans and regimen 01/29: Continue current regimen and plans 01/31/25: No med changes today. 02/02: Decrease chlorpromazine to 25 mg tid 02/03: Xray R shoulder Orthopedic consult R shoulder pain Continue current regime Section 7 hearing 02/06/25. 02/04- nsaid tid with meals- if tolerated, PT if available- encourage pt to use left side- to help herself- no change med for psych pending hearing on sec 7 02/05 changed nsaid to tylenol due to lithium, will check labs tomorrow, get ekg today- re seroquel and lithium last ekg 01/25 was borderline 469 qtc 02/07 Decrease chlorpromazine to 10 mg tid prn L hand edema/pain. will ask hospitalist to review. Reason for continued inpatient stay Substantial Risk for: rapid decompensation and med/psych decompensation Time Spent With Patient Time: Total time managing care of this patient today ____ minutes.
[2025-02-07 19:17] LABS: Basophils Percent Auto 0.3 % (0-2); Eosinophils Absolute Auto 0.1 X10*3/uL (0.0-0.4); Eosinophils Percent Auto 2.6 % (0-4); Hematocrit 32.8 % (37.0-47.0); Hemoglobin 10.8 g/dl (12.0-16.0); Imm Gran Abs Auto 0.07 X10*3/uL (0.00-0.03); Imm Gran Pct Auto 2.1 % (0.0-0.4); Lymphocytes Absolute Auto 1.3 X10*3/uL (1.2-4.9); Lymphocytes Percent Auto 38.5 % (20-40); MANUAL DIFF FLAG NO; Mean Corpuscular HGB Conc 32.9 g/dl (31.0-35.0); Mean Corpuscular Volume 91.1 fL (80.0-98.0); Monocytes Absolute Auto 0.6 X10*3/uL (0.1-1.2); Monocytes Percent Auto 18.2 % (2-11); Neutrophils Absolute Auto 1.3 x10*3/uL (2.0-8.3); Neutrophils Percent Auto 38.3 % (45-73); Red Cell Distribution Width 14.3 % (11.0-16.0); White Blood Count 3.4 X10*3/uL (4.8-10.8)
[2025-02-07 19:32] LABS: Rheumatoid Factor < 13.0 IU/mL (<15.0)
[2025-02-07 19:34] LABS: C Reactive Protein 0.35 mg/dL (< or = 0.50)
[2025-02-07 19:53] LABS: Platelet Count 96 X10*3/uL (160-400)
[2025-02-07 20:00] VITALS: BP 143/68; PULSE 88; TEMP 36.7; O2SAT 96
[2025-02-07 20:19] LABS: Erythrocyte Sedimentation Rate 16 MM/HR (0-20)
[2025-02-07] MEDS: Lithium Carbonate ER 450 MG TABLET.ER PO (20:36)
[2025-02-07] MEDS: QUEtiapine Fumarate 100 MG TABLET 500 MG PO (20:36)
[2025-02-07] MEDS: hydrOXYzine HCL 25 MG TABLET PO (20:39)
--- NOTE | 2025-02-08 | ECG_ITS ---
Test Reason : r shoulder pain, numbness Blood Pressure : */* mmHG Vent. Rate : 80 BPM Atrial Rate : 80 BPM P-R Int : 130 ms QRS Dur : 90 ms QT Int : 400 ms P-R-T Axes : 65 48 60 degrees QTcB Int : 461 ms Normal sinus rhythm Normal ECG When compared with ECG of 06-Feb-2025 09:50, No significant change was found Referred By: Mariah Dhaliwal Electronically Signed By: Gautam Chambers
[2025-02-08] MEDS: Ibuprofen 800 MG TABLET PO (04:52)
[2025-02-08] MEDS: Levothyroxine Sodium 50 MCG TABLET PO (06:32)
[2025-02-08] MEDS: Mineral Oil/Petrolatum,White 106 GM Tube 1 APPL TOPICAL (08:19)
[2025-02-08] MEDS: Sertraline HCL 50 MG TABLET 150 MG PO (08:19)
[2025-02-08] MEDS: clonazePAM 1 MG TABLET PO ×3 (08:19→20:43)
[2025-02-08] MEDS: QUEtiapine Fumarate 50 MG TABLET 150 MG PO (08:19)
[2025-02-08] MEDS: Benztropine Mesylate 0.5 MG TABLET PO ×2 (08:19→20:43)
[2025-02-08] MEDS: Multivitamin TABLET 1 TAB PO (08:19)
[2025-02-08] MEDS: Acetaminophen 325 MG TABLET 975 MG PO ×2 (08:20→20:43)
[2025-02-08 08:29] VITALS: BP 158/79; PULSE 77; RESP 18; TEMP 36.4; O2SAT 96
[2025-02-08] MEDS: Lidocaine 4 % Patch ADH..PATCH 1 PATCH TRANSDERMA (08:36)
[2025-02-08] MEDS: Valproic Acid Liquid 250 MG/5 ML SOLUTION 1000 MG PO ×2 (09:23→20:43)
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
[2025-02-08 20:00] VITALS: BP 156/70; PULSE 88; RESP 16; TEMP 36.7; O2SAT 96
[2025-02-08] MEDS: QUEtiapine Fumarate 100 MG TABLET 500 MG PO (20:43)
[2025-02-08] MEDS: hydrOXYzine HCL 25 MG TABLET PO (20:43)
[2025-02-09 00:20] LABS: MANUAL DIFF FLAG NO
[2025-02-09 00:21] LABS: Basophils Percent Auto 0.3 % (0-2); Eosinophils Absolute Auto 0.1 X10*3/uL (0.0-0.4); Eosinophils Percent Auto 3.1 % (0-4); Hematocrit 29.6 % (37.0-47.0); Hemoglobin 10.2 g/dl (12.0-16.0); Imm Gran Abs Auto 0.11 X10*3/uL (0.00-0.03); Imm Gran Pct Auto 3.1 % (0.0-0.4); Lymphocytes Absolute Auto 1.4 X10*3/uL (1.2-4.9); Lymphocytes Percent Auto 38.6 % (20-40); Mean Corpuscular HGB Conc 34.5 g/dl (31.0-35.0); Mean Corpuscular Hemoglobin 30.4 pg (27.0-33.0); Mean Corpuscular Volume 88.1 fL (80.0-98.0); Mean Platelet Volume 9.6 fL (9.4-12.3); Monocytes Absolute Auto 0.6 X10*3/uL (0.1-1.2); Monocytes Percent Auto 17.5 % (2-11); Neutrophils Absolute Auto 1.4 x10*3/uL (2.0-8.3); Neutrophils Percent Auto 37.4 % (45-73); Red Blood Count 3.36 X10*6/uL (4.20-5.50); Red Cell Distribution Width 14.2 % (11.0-16.0); White Blood Count 3.6 X10*3/uL (4.8-10.8)
[2025-02-09 00:22] LABS: Platelet Count 95 X10*3/uL (160-400)
[2025-02-09 00:41] LABS: Alanine Aminotransferase 31 U/L (0-31); Albumin Level 3.5 g/dL (3.5-5.0); Alkaline Phosphatase 55 U/L (39-117); Anion Gap 11 (12-20); Aspartate Amino Transferase 41 U/L (5-31); Bilirubin Total 0.2 mg/dL (0.0-1.0); Blood Urea Nitrogen 11 mg/dL (9-16); Calcium 8.9 mg/dL (8.4-10.2); Carbon Dioxide 28 mmol/L (22-29); Chloride 98 mmol/L (96-108); Creatinine Clr Calc Pharmacy 101.4; Estimated Glomerular Filt Rate > 60; Glucose Random 107 mg/dL (60-115); Potassium 4.6 mmol/L (3.3-5.1); Sodium 132 mmol/L (135-145); Total Protein 7.4 g/dL (6.5-8.0)
[2025-02-09 00:44] LABS: Troponin-I High Sensitivity < 2.7 ng/L (<3.5-17.0)
--- NOTE | 2025-02-09 03:28 | PC.NURSE ---
AT 2300 PTS ROOMMATE EXPRESSED CONCERN ABOUT PT. RN ASSESSED PT WHO WAS GRIMACING IN PAIN AND GRUNTING WHILE LAYING IN BED. PT REPORTED 10/10 RIGHT SHOULDER PAIN, RADIATING TO HER HAND. UPON ASSESSMENT, PT DISPLAYED NUMBNESS TO HER 4TH AND 5TH FINGERS. BLOOD PRESSURE IN RIGHT UPPER EXTREMITY WAS 156/89. BP IN LEFT UPPER EXTREMITY WAS 125/94. PULSES WERE EQUAL AND BOUNDING. PT REPORTS SHORTNESS OF BREATH. 96% o2. PT ALERT AND ORIENTED X4. SAY HERNÁNDEZ NP AND MD CHAVEZ WERE MADE AWARE. EKG, LABS, AND DOPPLER ORDERS OBTAINED.
[2025-02-09] MEDS: Levothyroxine Sodium 50 MCG TABLET PO (06:08)
[2025-02-09] MEDS: Ibuprofen 800 MG TABLET PO (06:08)
[2025-02-09 07:00] VITALS: BMI 30.8
[2025-02-09] MEDS: Multivitamin TABLET 1 TAB PO (08:20)
[2025-02-09] MEDS: Acetaminophen 325 MG TABLET 975 MG PO ×2 (08:20→20:38)
[2025-02-09] MEDS: Sertraline HCL 50 MG TABLET 150 MG PO (08:20)
[2025-02-09] MEDS: clonazePAM 1 MG TABLET PO ×3 (08:20→20:38)
[2025-02-09] MEDS: Valproic Acid Liquid 250 MG/5 ML SOLUTION 750 MG PO ×2 (08:21→20:41)
[2025-02-09] MEDS: Benztropine Mesylate 0.5 MG TABLET PO ×2 (08:21→20:38)
[2025-02-09] MEDS: QUEtiapine Fumarate 50 MG TABLET 150 MG PO (08:21)
[2025-02-09 08:26] VITALS: BP 139/89; PULSE 75; RESP 18; TEMP 36.4; O2SAT 95
[2025-02-09] MEDS: Lidocaine 4 % Patch ADH..PATCH 1 PATCH TRANSDERMA (08:58)
[2025-02-09 09:04] LABS: Iron 82 mcg/dL (30-160); Percent Iron Saturation 25 % (15-50); Total Iron Binding Capacity 329 mcg/dL (228-428); Unsaturated Iron Binding 247 ug/dL
[2025-02-09 09:40] LABS: Folate 14.8 ng/mL (> or = 4.0); Vitamin B12 644 pg/mL (200-900)
--- NOTE | 2025-02-09 12:20 | HO.PSYCHPN ---
Subjective Subjective Date of Service: 02/09/25 Reason For Visit: depressed Subjective Notes: Conditional Voluntary Healthcare Proxy: No Guardianship: No Medical Problems Affecting Mental Status: No Interim History: [facility] will meet with pt on 02/13 for case mgt interview. Pt looking for assist to re-enstate SSI along with housing. Will consider CSS as well. After hours report 10/10 pain R shoulder. Labs, EKG, CT shoulder, RUE duplex completed. Na 132, WBC, RBC,H&H trend is down. Placed on fluid restrict by hospitalist team. Depakote may not be an option, Level 98.4 on 02/06. Review of Systems Review of Systems As noted in HPI Mental Status Exam Mental Status Exam Patient Appearance: Appropriate Patient Orientation: Person, Place, Time and Situation Level of Consciousness: Alert Patient Behavior: Talkative and Good Eye Contact Mood Description: Depressed Affect Description: Flat Patient Cognition Impaired: No Ability to Follow Directions: Good Speech Pattern: Spontaneous Speech Memory Description: Episodic Impaired Hallucinations: Visual Delusions: Paranoid Ideation and Present Perceptual Disturbances: Derealization Thought Process: Rumination Thought Content: positive for Obsessional Thoughts, positive for Circumstantial, positive for Perseveration and positive for Homicidal Ideation Judgement: Poor Diagnostics Vital Signs (24Hr): Vital Signs - 24 hr 02/08/25 20:00 02/09/25 08:26 Temperature 98.1 F 97.5 F Pulse Rate 88 75 Respiratory Rate 16 18 Blood Pressure 156/70 H 139/89 Pulse Oximetry 96 95 Oxygen Delivery Method Room Air Room Air BMI result Body Mass Index 30.8 Labs 02/08/25 00:05 02/10/25 09:39 Labs: Laboratory Results - last 48 hr 02/07/25 02/08/25 02/09/25 18:44 00:05 00:05 WBC 3.4 L 3.6 L RBC 3.60 L 3.36 L Hgb 10.8 L 10.2 L Hct 32.8 L 29.6 L MCV 91.1 88.1 MCH 30.0 30.4 MCHC 32.9 34.5 RDW 14.3 14.2 Plt Count 96 L 95 L MPV 10.0 9.6 Immature Gran % (Auto) 2.1 H 3.1 H Neut % (Auto) 38.3 L 37.4 L Lymph % (Auto) 38.5 38.6 [place] % (Auto) 18.2 H 17.5 H Eos % (Auto) 2.6 3.1 Baso % (Auto) 0.3 0.3 Lymph # (Auto) 1.3 1.4 [place] # (Auto) 0.6 0.6 Eos # (Auto) 0.1 0.1 Baso # (Auto) 0.0 0.0 Abs Immat Gran (auto) 0.07 H 0.11 H Absolute Neuts (auto) 1.3 L 1.4 L Absolute Nucleated RBC 0.000 0.000 Nucleated RBC % (auto) 0.0 0.0 ESR 16 Sodium 132 L Potassium 4.6 Chloride 98 Carbon Dioxide 28 Anion Gap 11 L BUN 11 Creatinine 0.57 Estim Creat Clear Calc 101.4 Estimated GFR > 60 Random Glucose 107 Uric Acid 5.0 Calcium 8.9 Iron TIBC % Saturation Unsat Iron Binding Total Bilirubin 0.2 AST 41 H ALT 31 Alkaline Phosphatase 55 Troponin I High Sens < 2.7 C-Reactive Protein 0.35 Total Protein 7.4 Albumin 3.5 Vitamin B12 Folate Rheumatoid Factor < 13.0 02/09/25 07:46 WBC RBC Hgb Hct MCV MCH MCHC RDW Plt Count MPV Immature Gran % (Auto) Neut % (Auto) Lymph % (Auto) [place] % (Auto) Eos % (Auto) Baso % (Auto) Lymph # (Auto) [place] # (Auto) Eos # (Auto) Baso # (Auto) Abs Immat Gran (auto) Absolute Neuts (auto) Absolute Nucleated RBC Nucleated RBC % (auto) ESR Sodium Potassium Chloride Carbon Dioxide Anion Gap BUN Creatinine Estim Creat Clear Calc Estimated GFR Random Glucose Uric Acid Calcium Iron 82 TIBC 329 % Saturation 25 Unsat Iron Binding 247 Total Bilirubin AST ALT Alkaline Phosphatase Troponin I High Sens C-Reactive Protein Total Protein Albumin Vitamin B12 644 Folate 14.8 Rheumatoid Factor Imaging Radiology Impressions: ITS Impressions Shoulder X-Ray 02/03/25 15:38 IMPRESSION: 1. No fracture or dislocation. 2. Moderate to severe calcific tendinopathy of the supraspinatus tendon. This has mildly improved when compared with 05/09/2024. Electronically signed by: Ji Nunes MD 02/03/2025 03:56 PM EDT Hand/Wrist X-Ray 02/07/25 16:58 IMPRESSION: Unremarkable examination of the left hand and wrist. Electronically signed by: Coleman Melo MD 02/08/2025 07:14 AM EDT Medications Medications Current Medications Acetaminophen (Acetaminophen 325 Mg Tablet) 975 mg PO BID [facility] Last Admin: 02/09/25 08:20 Dose: 975 mg Al Hydroxide/Mg Hydroxide (Magnesium Hydrox/Alum Hydrox 30 Ml Oral.Susp) 30 ml PO Q6H PRN PRN Reason: Heartburn/Nausea Last Admin: 02/05/25 17:43 Dose: 30 ml Benztropine Mesylate (Benztropine Mesylate 0.5 Mg Tablet) 0.5 mg PO BID [facility] Last Admin: 02/09/25 08:21 Dose: 0.5 mg Chlorpromazine HCl (Chlorpromazine Hcl 10 Mg Tablet) 10 mg PO TID PRN PRN Reason: psychosis Clonazepam (Clonazepam 1 Mg Tablet) 1 mg PO TID [facility] Last Admin: 02/09/25 08:20 Dose: 1 mg Diphenhydramine HCl (Diphenhydramine Hcl 25 Mg Capsule) 50 mg PO BEDTIME PRN PRN Reason: Sleep Hydroxyzine HCl (Hydroxyzine Hcl 25 Mg Tablet) 25 mg PO BEDTIME [facility] Last Admin: 02/08/25 20:43 Dose: 25 mg Hydroxyzine HCl (Hydroxyzine Hcl 25 Mg Tablet) 25 mg PO Q6H PRN PRN Reason: mild anxiety Ibuprofen (Ibuprofen 800 Mg Tablet) 800 mg PO DAILY PRN PRN Reason: Pain, Severe (Pain Scale 7-10) Last Admin: 02/09/25 06:08 Dose: 800 mg Levothyroxine Sodium (Levothyroxine Sodium 50 Mcg Tablet) 50 mcg PO DAILY@0600 [facility] Last Admin: 02/09/25 06:08 Dose: 50 mcg Lidocaine (Lidocaine 4 % Patch Adh..Patch) 1 patch TRANSDERMA DAILY [facility]; Protocol Last Admin: 02/09/25 08:58 Dose: 1 patch Magnesium Hydroxide (Milk Of Magnesia 30 Ml Oral.Susp) 30 ml PO DAILY PRN PRN Reason: Constipation Multi-Ingred Cream/Lotion/Oil/Oint (Mineral Oil/Petrolatum,White 106 Gm Tube) 1 appl TOPICAL TID [facility]; Protocol Last Admin: 02/09/25 08:25 Dose: Not Given Multivitamins/Vitamin C (Multivitamin Tablet) 1 tab PO DAILY [facility] Last Admin: 02/09/25 08:20 Dose: 1 tab Nicotine (Nicotine 21 Mg Patch.Td24) 21 mg TRANSDERMA DAILY PRN PRN Reason: smoking cessation Nicotine Polacrilex (Nicotine Polacrilex 2 Mg Gum) 4 mg BUCCAL Q2H PRN PRN Reason: Nicotine Cravings Olanzapine (Olanzapine 5 Mg Tablet) 5 mg PO TID PRN PRN Reason: agitation Last Admin: 01/27/25 15:21 Dose: 5 mg Quetiapine Fumarate (Quetiapine Fumarate 50 Mg Tablet) 150 mg PO DAILY [facility] Last Admin: 02/09/25 08:21 Dose: 150 mg Quetiapine Fumarate (Quetiapine Fumarate 100 Mg Tablet) 500 mg PO BEDTIME [facility] Last Admin: 02/08/25 20:43 Dose: 500 mg Sertraline HCl (Sertraline Hcl 50 Mg Tablet) 150 mg PO DAILY [facility] Last Admin: 02/09/25 08:20 Dose: 150 mg Valproic Acid (Valproic Acid Liquid 250 Mg/5 Ml Solution) 750 mg PO BID [facility] Last Admin: 02/09/25 08:21 Dose: 750 mg Allergies Allergies Allergy/AdvReac Type Severity Reaction Status Date / Time haloperidol [From HALDOL] Allergy Intermediate LOWERS Verified 01/24/25 15:43 HEART RATE trazodone AdvReac Intermediate Hives Verified 01/24/25 15:43 Assessment & Plan Assessment & Plan (1) Schizoaffective disorder: Qualifiers: Schizoaffective disorder type: unspecified Qualified Code(s): F25.9 - Schizoaffective disorder, unspecified Status: Acute Code(s): F25.9 - Schizoaffective disorder, unspecified Assessment and Plan: 02/09- Decrease Depakote to 750 mg bid (2) Chronic post-traumatic stress disorder (PTSD): Status: Acute Code(s): F43.12 - Post-traumatic stress disorder, chronic (3) Polysubstance use disorder: Status: Acute Code(s): F19.90 - Other psychoactive substance use, unspecified, uncomplicated Plan 59-year-old female with history of polysubstance use disorder, hypothyroidism, schizoaffective disorder bipolar type, borderline personality disorder admitted to adult Psychiatry with consult placed hospitalist service due to left hand edema with question of cellulitis. #Swelling L hand/wrist -xray L hand/wrist ordered -appearance more consistent with a contusion however no injury -this is not consistent with cellulitis -Given prior history of joint swelling/redness and current symptoms present in the R wrist as well, raises concern for autoimmune condition such as rheumatoid arthritis or less likely gout -Check cbc, crp, esr, SEAN, rheumatoid factor, uric acid -for now recommend NSAIDs and ice pack Will continue following for results Reason for continued inpatient stay Substantial Risk for: rapid decompensation and med/psych decompensation Time Spent With Patient Time: Total time managing care of this patient today ____ minutes.
--- NOTE | 2025-02-09 13:54 | PM.EVENT ---
Event Note Date of Service: 02/09/25 Event Note: Pt is a 49-year-old female admitted to [facility] with follow-up for right shoulder pain. CT of right shoulder without acute fracture, but showing supraspinatus calcific tendinitis, similar to shoulder x-ray on 02/03/2025 which showed improving calcific tendonitis. Labs showed mild leukopenia of 3.4, improved from prior. H&H unremarkable and stable. Additional workup including uric acid, CRP, and rheumatoid factor either negative or WNL. SEAN screening still pending. Pt has already been seen by ortho who indicate no acute intervention is warranted. Pt should seek outpatient ortho evaluation as needed. While inpatient, can consider PT evaluation for possible exercise to increase mobility and reduced pain. Otherwise treat conservatively with ice packs and judicious use of NSAIDs. Pt also noted to have mild hyponatremia of 132. Will place on fluid restriction at 1500 mL for now and repeat labs in the morning. Time Spent With Patient Time: Total time managing care of this patient today ____ minutes.
[2025-02-09] MEDS: Mineral Oil/Petrolatum,White 106 GM Tube 1 APPL TOPICAL (14:22)
[2025-02-09 19:50] VITALS: BP 121/76; PULSE 88; TEMP 36.7; O2SAT 96
[2025-02-09] MEDS: QUEtiapine Fumarate 100 MG TABLET 500 MG PO (20:37)
[2025-02-09] MEDS: hydrOXYzine HCL 25 MG TABLET PO (20:38)
[2025-02-09] MEDS: OLANZapine 5 MG TABLET PO (20:38)
[2025-02-10] MEDS: Ibuprofen 800 MG TABLET PO (03:31)
[2025-02-10] MEDS: Levothyroxine Sodium 50 MCG TABLET PO (06:19)
[2025-02-10 07:47] VITALS: BP 144/73; PULSE 83; TEMP 36.6; O2SAT 95
[2025-02-10] MEDS: Multivitamin TABLET 1 TAB PO (09:40)
[2025-02-10] MEDS: clonazePAM 1 MG TABLET PO ×3 (09:40→20:51)
[2025-02-10] MEDS: Acetaminophen 325 MG TABLET 975 MG PO ×2 (09:40→20:51)
[2025-02-10] MEDS: Sertraline HCL 50 MG TABLET 150 MG PO (09:40)
[2025-02-10] MEDS: QUEtiapine Fumarate 50 MG TABLET 150 MG PO (09:40)
[2025-02-10] MEDS: Valproic Acid Liquid 250 MG/5 ML SOLUTION 750 MG PO ×2 (09:41→22:32)
[2025-02-10] MEDS: Mineral Oil/Petrolatum,White 106 GM Tube 1 APPL TOPICAL (09:45)
[2025-02-10 10:14] LABS: Anion Gap 14 (12-20); Blood Urea Nitrogen 14 mg/dL (9-16); Calcium 9.5 mg/dL (8.4-10.2); Carbon Dioxide 28 mmol/L (22-29); Chloride 100 mmol/L (96-108); Creatinine Clr Calc Pharmacy 86.1; Estimated Glomerular Filt Rate > 60; Glucose Random 143 mg/dL (60-115); Potassium 4.7 mmol/L (3.3-5.1); Sodium 137 mmol/L (135-145)
[2025-02-10 14:53] LABS: Anti Nuclear Antibody Screen NEGATIVE (NEGATIVE)
--- NOTE | 2025-02-10 16:24 | P.PNPSI_ITS ---
Subjective Subjective Date of Service: 02/10/25 Reason For Visit: depressed Subjective Notes: Conditional Voluntary Healthcare Proxy: No Guardianship: No Medical Problems Affecting Mental Status: No Interim History: Reports to team last evening no recall of meeting with team and deck scaler. ?GOPAL parkerx Denies pain, reports she slept well, Na 137 Medication Compliance: Yes Side effects from medications: No Attending Groups: Intermittent Review of Systems Acute medical concerns: No Review of Systems Review of Systems Denies Mental Status Exam Mental Status Exam Patient Appearance: Appropriate Patient Orientation: Person, Place, Time and Situation Level of Consciousness: Alert Patient Behavior: Talkative and Good Eye Contact Mood Description: Depressed Affect Description: Flat Patient Cognition Impaired: No Ability to Follow Directions: Good Speech Pattern: Spontaneous Speech Memory Description: Episodic Impaired Hallucinations: Visual Delusions: Paranoid Ideation and Present Perceptual Disturbances: Derealization Thought Process: Rumination Thought Content: positive for Obsessional Thoughts, positive for Circumstantial, positive for Perseveration and positive for Homicidal Ideation Judgement: Poor Diagnostics Vital Signs (24Hr): Vital Signs - 24 hr 02/09/25 19:50 02/10/25 07:47 Temperature 98.0 F 97.8 F Pulse Rate 88 83 Blood Pressure 121/76 144/73 H Pulse Oximetry 96 95 Oxygen Delivery Method Room Air Room Air BMI result Body Mass Index 30.8 Labs 02/08/25 00:05 02/10/25 09:39 Labs: Laboratory Results - last 48 hr 02/07/25 02/08/25 02/09/25 18:44 00:05 00:05 WBC 3.6 L RBC 3.36 L Hgb 10.2 L Hct 29.6 L MCV 88.1 MCH 30.4 MCHC 34.5 RDW 14.2 Plt Count 95 L MPV 9.6 Immature Gran % (Auto) 3.1 H Neut % (Auto) 37.4 L Lymph % (Auto) 38.6 Stewart % (Auto) 17.5 H Eos % (Auto) 3.1 Baso % (Auto) 0.3 Lymph # (Auto) 1.4 Stewart # (Auto) 0.6 Eos # (Auto) 0.1 Baso # (Auto) 0.0 Abs Immat Gran (auto) 0.11 H Absolute Neuts (auto) 1.4 L Absolute Nucleated RBC 0.000 Nucleated RBC % (auto) 0.0 Sodium 132 L Potassium 4.6 Chloride 98 Carbon Dioxide 28 Anion Gap 11 L BUN 11 Creatinine 0.57 Estim Creat Clear Calc 101.4 Estimated GFR > 60 Random Glucose 107 Calcium 8.9 Iron TIBC % Saturation Unsat Iron Binding Total Bilirubin 0.2 AST 41 H ALT 31 Alkaline Phosphatase 55 Troponin I High Sens < 2.7 Total Protein 7.4 Albumin 3.5 Vitamin B12 Folate SEAN Screen NEGATIVE 02/09/25 02/10/25 07:46 09:39 WBC RBC Hgb Hct MCV MCH MCHC RDW Plt Count MPV Immature Gran % (Auto) Neut % (Auto) Lymph % (Auto) Stewart % (Auto) Eos % (Auto) Baso % (Auto) Lymph # (Auto) Stewart # (Auto) Eos # (Auto) Baso # (Auto) Abs Immat Gran (auto) Absolute Neuts (auto) Absolute Nucleated RBC Nucleated RBC % (auto) Sodium 137 Potassium 4.7 Chloride 100 Carbon Dioxide 28 Anion Gap 14 BUN 14 Creatinine 0.69 Estim Creat Clear Calc 86.1 Estimated GFR > 60 Random Glucose 143 H Calcium 9.5 D Iron 82 TIBC 329 % Saturation 25 Unsat Iron Binding 247 Total Bilirubin AST ALT Alkaline Phosphatase Troponin I High Sens Total Protein Albumin Vitamin B12 644 Folate 14.8 SEAN Screen Imaging Radiology Impressions: ITS Impressions Shoulder X-Ray 02/03/25 15:38 IMPRESSION: 1. No fracture or dislocation. 2. Moderate to severe calcific tendinopathy of the supraspinatus tendon. This has mildly improved when compared with 05/09/2024. Electronically signed by: Ji Nunes MD 02/03/2025 03:56 PM EDT RP Hand/Wrist X-Ray 02/07/25 16:58 IMPRESSION: Unremarkable examination of the left hand and wrist. Electronically signed by: Coleman Melo MD 02/08/2025 07:14 AM EDT RP Medications Medications Current Medications Acetaminophen (Acetaminophen 325 Mg Tablet) 975 mg PO BID [facility] Last Admin: 02/10/25 09:40 Dose: 975 mg Al Hydroxide/Mg Hydroxide (Magnesium Hydrox/Alum Hydrox 30 Ml Oral.Susp) 30 ml PO Q6H PRN PRN Reason: Heartburn/Nausea Last Admin: 02/05/25 17:43 Dose: 30 ml Benztropine Mesylate (Benztropine Mesylate 0.5 Mg Tablet) 0.5 mg PO BID [facility] Last Admin: 02/10/25 09:45 Dose: Not Given Chlorpromazine HCl (Chlorpromazine Hcl 10 Mg Tablet) 10 mg PO TID PRN PRN Reason: psychosis Clonazepam (Clonazepam 1 Mg Tablet) 1 mg PO TID [facility] Last Admin: 02/10/25 15:33 Dose: 1 mg Diphenhydramine HCl (Diphenhydramine Hcl 25 Mg Capsule) 50 mg PO BEDTIME PRN PRN Reason: Sleep Hydroxyzine HCl (Hydroxyzine Hcl 25 Mg Tablet) 25 mg PO BEDTIME [facility] Last Admin: 02/09/25 20:38 Dose: 25 mg Hydroxyzine HCl (Hydroxyzine Hcl 25 Mg Tablet) 25 mg PO Q6H PRN PRN Reason: mild anxiety Ibuprofen (Ibuprofen 800 Mg Tablet) 800 mg PO DAILY PRN PRN Reason: Pain, Severe (Pain Scale 7-10) Last Admin: 02/10/25 03:31 Dose: 800 mg Levothyroxine Sodium (Levothyroxine Sodium 50 Mcg Tablet) 50 mcg PO DAILY@0600 [facility] Last Admin: 02/10/25 06:19 Dose: 50 mcg Lidocaine (Lidocaine 4 % Patch Adh..Patch) 1 patch TRANSDERMA DAILY [facility]; Protocol Last Admin: 02/10/25 09:45 Dose: Not Given Magnesium Hydroxide (Milk Of Magnesia 30 Ml Oral.Susp) 30 ml PO DAILY PRN PRN Reason: Constipation Multi-Ingred Cream/Lotion/Oil/Oint (Mineral Oil/Petrolatum,White 106 Gm Tube) 1 appl TOPICAL TID [facility]; Protocol Last Admin: 02/10/25 09:45 Dose: 1 appl Multivitamins/Vitamin C (Multivitamin Tablet) 1 tab PO DAILY [facility] Last Admin: 02/10/25 09:40 Dose: 1 tab Nicotine (Nicotine 21 Mg Patch.Td24) 21 mg TRANSDERMA DAILY PRN PRN Reason: smoking cessation Nicotine Polacrilex (Nicotine Polacrilex 2 Mg Gum) 4 mg BUCCAL Q2H PRN PRN Reason: Nicotine Cravings Olanzapine (Olanzapine 5 Mg Tablet) 5 mg PO TID PRN PRN Reason: agitation Last Admin: 02/09/25 20:38 Dose: 5 mg Quetiapine Fumarate (Quetiapine Fumarate 50 Mg Tablet) 150 mg PO DAILY [facility] Last Admin: 02/10/25 09:40 Dose: 150 mg Quetiapine Fumarate (Quetiapine Fumarate 100 Mg Tablet) 500 mg PO BEDTIME [facility] Last Admin: 02/09/25 20:37 Dose: 500 mg Sertraline HCl (Sertraline Hcl 50 Mg Tablet) 150 mg PO DAILY [facility] Last Admin: 02/10/25 09:40 Dose: 150 mg Valproic Acid (Valproic Acid Liquid 250 Mg/5 Ml Solution) 750 mg PO BID [facility] Last Admin: 02/10/25 09:41 Dose: 750 mg Allergies Allergies Allergy/AdvReac Type Severity Reaction Status Date / Time haloperidol [From HALDOL] Allergy Intermediate LOWERS Verified 01/24/25 15:43 HEART RATE trazodone AdvReac Intermediate Hives Verified 01/24/25 15:43 Assessment & Plan Assessment & Plan (1) Schizoaffective disorder: Qualifiers: Schizoaffective disorder type: unspecified Qualified Code(s): F25.9 - Schizoaffective disorder, unspecified Status: Acute Code(s): F25.9 - Schizoaffective disorder, unspecified (2) Chronic post-traumatic stress disorder (PTSD): Status: Acute Code(s): F43.12 - Post-traumatic stress disorder, chronic (3) Polysubstance use disorder: Status: Acute Code(s): F19.90 - Other psychoactive substance use, unspecified, uncomplicated Plan 59-year-old female with history of polysubstance use disorder, hypothyroidism, schizoaffective disorder bipolar type, borderline personality disorder admitted to adult Psychiatry with consult placed hospitalist service due to left hand edema with question of cellulitis. #Swelling L hand/wrist -xray L hand/wrist ordered -appearance more consistent with a contusion however no injury -this is not consistent with cellulitis -Given prior history of joint swelling/redness and current symptoms present in the R wrist as well, raises concern for autoimmune condition such as rheumatoid arthritis or less likely gout -Check cbc, crp, esr, SEAN, rheumatoid factor, uric acid -for now recommend NSAIDs and ice pack Will continue following for results Reason for continued inpatient stay Substantial Risk for: rapid decompensation Time Spent With Patient Time: Total time managing care of this patient today ____ minutes.
--- NOTE | 2025-02-10 19:25 | PC.NURSE ---
At approximately 7:10pm this patient hd a verbal altercation with a female peer in the kitchen. She left the kitchen, yelling loudly ad punched the wall 3 times. she calmed with contact with staff.
[2025-02-10 19:59] VITALS: BP 153/80; PULSE 92; TEMP 36.4; O2SAT 95
[2025-02-10] MEDS: QUEtiapine Fumarate 100 MG TABLET 500 MG PO (20:51)
[2025-02-10] MEDS: Benztropine Mesylate 0.5 MG TABLET PO (20:52)
[2025-02-10] MEDS: hydrOXYzine HCL 25 MG TABLET PO (20:52)
[2025-02-10] MEDS: OLANZapine 5 MG TABLET PO (20:52)
[2025-02-10] MEDS: Valproic Acid Liquid 250 MG/5 ML SOLUTION 1000 MG PO (20:55)
[2025-02-11] MEDS: Levothyroxine Sodium 50 MCG TABLET PO (05:45)
[2025-02-11 07:53] VITALS: BP 135/69; PULSE 94; TEMP 36.1; O2SAT 94
[2025-02-11] MEDS: Acetaminophen 325 MG TABLET 975 MG PO ×2 (10:27→20:37)
[2025-02-11] MEDS: QUEtiapine Fumarate 50 MG TABLET 150 MG PO (10:29)
[2025-02-11] MEDS: Sertraline HCL 50 MG TABLET 150 MG PO (10:30)
[2025-02-11] MEDS: Multivitamin TABLET 1 TAB PO (10:30)
[2025-02-11] MEDS: Benztropine Mesylate 0.5 MG TABLET PO ×2 (10:30→20:38)
[2025-02-11] MEDS: Valproic Acid Liquid 250 MG/5 ML SOLUTION 750 MG PO ×2 (10:31→20:14)
[2025-02-11] MEDS: clonazePAM 1 MG TABLET PO ×3 (10:35→20:39)
[2025-02-11] MEDS: Ibuprofen 800 MG TABLET PO (10:36)
--- NOTE | 2025-02-11 14:16 | HO.PSYCHPN ---
Subjective Subjective Date of Service: 02/11/25 Reason For Visit: depressed Interim History: Met with patient; discussed with team No change in presentation. Pleasant on approach. Singing in the halls. Complains of some arthritic right shoulder pain but otherwise no complaints. Last night patient he would get angry at a peer during a verbal altercation and punched the pexy glass of the kitchen; patient redirectable Mental Status Exam Mental Status Exam Patient Appearance: Appropriate Patient Orientation: Person, Place and Time Level of Consciousness: Alert Patient Behavior: Talkative and Good Eye Contact Mood Description: Labile (Calm, singing, irritable) Affect Description: Labile Patient Cognition Impaired: No Ability to Follow Directions: Fair Speech Pattern: Spontaneous Speech Memory Description: Episodic Impaired Hallucinations: Visual Delusions: Paranoid Ideation and Present Perceptual Disturbances: Derealization Thought Process: Rumination Thought Content: positive for Obsessional Thoughts, positive for Circumstantial, positive for Perseveration and positive for Homicidal Ideation Judgement: Poor Diagnostics Vital Signs (24Hr): Vital Signs - 24 hr 02/10/25 19:59 02/11/25 07:53 Temperature 97.5 F 96.9 F Pulse Rate 92 94 Blood Pressure 153/80 H 135/69 Pulse Oximetry 95 94 Oxygen Delivery Method Room Air Room Air BMI result Body Mass Index 30.8 Labs 02/08/25 00:05 02/10/25 09:39 Labs: Laboratory Results - last 48 hr 02/07/25 02/10/25 18:44 09:39 Sodium 137 Potassium 4.7 Chloride 100 Carbon Dioxide 28 Anion Gap 14 BUN 14 Creatinine 0.69 Estim Creat Clear Calc 86.1 Estimated GFR > 60 Random Glucose 143 H Calcium 9.5 D SEAN Screen NEGATIVE Imaging Radiology Impressions: ITS Impressions Shoulder X-Ray 02/03/25 15:38 IMPRESSION: 1. No fracture or dislocation. 2. Moderate to severe calcific tendinopathy of the supraspinatus tendon. This has mildly improved when compared with 05/09/2024. Electronically signed by: Ji Nunes MD 02/03/2025 03:56 PM EDT Hand/Wrist X-Ray 02/07/25 16:58 IMPRESSION: Unremarkable examination of the left hand and wrist. Electronically signed by: Coleman Melo MD 02/08/2025 07:14 AM EDT RP Medications Medications Current Medications Acetaminophen (Acetaminophen 325 Mg Tablet) 975 mg PO BID [facility] Last Admin: 02/11/25 10:27 Dose: 975 mg Al Hydroxide/Mg Hydroxide (Magnesium Hydrox/Alum Hydrox 30 Ml Oral.Susp) 30 ml PO Q6H PRN PRN Reason: Heartburn/Nausea Last Admin: 02/05/25 17:43 Dose: 30 ml Benztropine Mesylate (Benztropine Mesylate 0.5 Mg Tablet) 0.5 mg PO BID [facility] Last Admin: 02/11/25 10:30 Dose: 0.5 mg Chlorpromazine HCl (Chlorpromazine Hcl 10 Mg Tablet) 10 mg PO TID PRN PRN Reason: psychosis Clonazepam (Clonazepam 1 Mg Tablet) 1 mg PO TID [facility] Last Admin: 02/11/25 10:35 Dose: 1 mg Diphenhydramine HCl (Diphenhydramine Hcl 25 Mg Capsule) 50 mg PO BEDTIME PRN PRN Reason: Sleep Hydroxyzine HCl (Hydroxyzine Hcl 25 Mg Tablet) 25 mg PO BEDTIME [facility] Last Admin: 02/10/25 20:52 Dose: 25 mg Hydroxyzine HCl (Hydroxyzine Hcl 25 Mg Tablet) 25 mg PO Q6H PRN PRN Reason: mild anxiety Ibuprofen (Ibuprofen 800 Mg Tablet) 800 mg PO DAILY PRN PRN Reason: Pain, Severe (Pain Scale 7-10) Last Admin: 02/11/25 10:36 Dose: 800 mg Levothyroxine Sodium (Levothyroxine Sodium 50 Mcg Tablet) 50 mcg PO DAILY@0600 [facility] Last Admin: 02/11/25 05:45 Dose: 50 mcg Lidocaine (Lidocaine 4 % Patch Adh..Patch) 1 patch TRANSDERMA DAILY [facility]; Protocol Last Admin: 02/11/25 10:33 Dose: Not Given Magnesium Hydroxide (Milk Of Magnesia 30 Ml Oral.Susp) 30 ml PO DAILY PRN PRN Reason: Constipation Multi-Ingred Cream/Lotion/Oil/Oint (Mineral Oil/Petrolatum,White 106 Gm Tube) 1 appl TOPICAL TID [facility]; Protocol Last Admin: 02/11/25 10:33 Dose: Not Given Multivitamins/Vitamin C (Multivitamin Tablet) 1 tab PO DAILY [facility] Last Admin: 03/22/25 10:30 Dose: 1 tab Nicotine (Nicotine 21 Mg Patch.Td24) 21 mg TRANSDERMA DAILY PRN PRN Reason: smoking cessation Nicotine Polacrilex (Nicotine Polacrilex 2 Mg Gum) 4 mg BUCCAL Q2H PRN PRN Reason: Nicotine Cravings Olanzapine (Olanzapine 5 Mg Tablet) 5 mg PO TID PRN PRN Reason: agitation Last Admin: 02/10/25 20:52 Dose: 5 mg Quetiapine Fumarate (Quetiapine Fumarate 50 Mg Tablet) 150 mg PO DAILY [facility] Last Admin: 02/11/25 10:29 Dose: 150 mg Quetiapine Fumarate (Quetiapine Fumarate 100 Mg Tablet) 500 mg PO BEDTIME [facility] Last Admin: 02/10/25 20:51 Dose: 500 mg Sertraline HCl (Sertraline Hcl 50 Mg Tablet) 150 mg PO DAILY [facility] Last Admin: 02/11/25 10:30 Dose: 150 mg Valproic Acid (Valproic Acid Liquid 250 Mg/5 Ml Solution) 750 mg PO BID [facility] Last Admin: 02/11/25 10:31 Dose: 750 mg Allergies Allergies Allergy/AdvReac Type Severity Reaction Status Date / Time haloperidol [From HALDOL] Allergy Intermediate LOWERS Verified 01/24/25 15:43 HEART RATE trazodone AdvReac Intermediate Hives Verified 01/24/25 15:43 Assessment & Plan Assessment & Plan (1) Schizoaffective disorder: Qualifiers: Schizoaffective disorder type: unspecified Qualified Code(s): F25.9 - Schizoaffective disorder, unspecified Status: Acute Code(s): F25.9 - Schizoaffective disorder, unspecified (2) Chronic post-traumatic stress disorder (PTSD): Status: Acute Code(s): F43.12 - Post-traumatic stress disorder, chronic (3) Polysubstance use disorder: Status: Acute Code(s): F19.90 - Other psychoactive substance use, unspecified, uncomplicated Plan 59-year-old female with history of polysubstance use disorder, hypothyroidism, schizoaffective disorder bipolar type, borderline personality disorder admitted to adult Psychiatry with consult placed hospitalist service due to left hand edema with question of cellulitis. #Swelling L hand/wrist -xray L hand/wrist ordered -appearance more consistent with a contusion however no injury -this is not consistent with cellulitis -Given prior history of joint swelling/redness and current symptoms present in the R wrist as well, raises concern for autoimmune condition such as rheumatoid arthritis or less likely gout -Check cbc, crp, esr, SEAN, rheumatoid factor, uric acid -for now recommend NSAIDs and ice pack Hospital course: 02/09 decrease Depakote to 750 mg b.i.d. 02/11 No change in presentation.? Pleasant on approach.? Singing in the halls.? Complains of some arthritic right shoulder pain but otherwise no complaints.? Last night patient he would get angry at a peer during a verbal altercation and punched the pexy glass of the kitchen; patient redirectable Patient educated on: diagnosis Informed Consent: does not understand Reason for continued inpatient stay Substantial Risk for: inability to function and rapid decompensation Time Spent With Patient Time: Total time managing care of this patient today ____ minutes.
[2025-02-11 19:54] VITALS: BP 145/85; PULSE 85; TEMP 36.4; O2SAT 95
[2025-02-11] MEDS: OLANZapine 5 MG TABLET PO (20:33)
[2025-02-11] MEDS: QUEtiapine Fumarate 100 MG TABLET 500 MG PO (20:38)
[2025-02-11] MEDS: hydrOXYzine HCL 25 MG TABLET PO (20:38)
[2025-02-12] MEDS: Levothyroxine Sodium 50 MCG TABLET PO (05:53)
[2025-02-12] MEDS: Valproic Acid Liquid 250 MG/5 ML SOLUTION 750 MG PO ×2 (08:32→20:21)
[2025-02-12] MEDS: QUEtiapine Fumarate 50 MG TABLET 150 MG PO (08:32)
[2025-02-12] MEDS: Acetaminophen 325 MG TABLET 975 MG PO ×2 (08:32→20:21)
[2025-02-12] MEDS: Benztropine Mesylate 0.5 MG TABLET PO ×2 (08:32→20:21)
[2025-02-12] MEDS: Sertraline HCL 50 MG TABLET 150 MG PO (08:32)
[2025-02-12] MEDS: clonazePAM 1 MG TABLET PO ×3 (08:32→20:20)
[2025-02-12] MEDS: Multivitamin TABLET 1 TAB PO (08:32)
[2025-02-12 09:01] VITALS: BP 151/69; PULSE 87; TEMP 36.3; O2SAT 96
[2025-02-12] MEDS: Ibuprofen 800 MG TABLET PO (11:55)
[2025-02-12 19:43] VITALS: BP 148/69; PULSE 68; RESP 15; TEMP 36.4; O2SAT 98
[2025-02-12] MEDS: QUEtiapine Fumarate 100 MG TABLET 500 MG PO (20:20)
[2025-02-12] MEDS: hydrOXYzine HCL 25 MG TABLET PO (20:21)
[2025-02-12] MEDS: Mineral Oil/Petrolatum,White 106 GM Tube 1 APPL TOPICAL (21:34)
--- NOTE | 2025-02-12 23:16 | HO.PSYCHPN ---
Subjective Subjective Date of Service: 02/12/25 Reason For Visit: depressed Interim History: met with pt; discussed with team pt denies any HI and is upset that anyone ever said she had any HI toward anyone; keeps asking who said she had HI and cannot accept it was her Mental Status Exam Mental Status Exam Patient Appearance: Appropriate Patient Orientation: Person, Place and Time Level of Consciousness: Alert Patient Behavior: Talkative and Good Eye Contact Mood Description: Labile (Calm, singing, irritable) Affect Description: Labile Patient Cognition Impaired: No Ability to Follow Directions: Fair Speech Pattern: Spontaneous Speech Memory Description: Episodic Impaired Hallucinations: Visual Delusions: Paranoid Ideation and Present Perceptual Disturbances: Derealization Thought Process: Rumination Thought Content: positive for Obsessional Thoughts, positive for Circumstantial, positive for Perseveration and positive for Homicidal Ideation Judgement: Poor Diagnostics Vital Signs (24Hr): Vital Signs - 24 hr 02/12/25 09:01 02/12/25 19:43 Temperature 97.3 F 97.6 F Pulse Rate 87 68 Respiratory Rate 15 Blood Pressure 151/69 H 148/69 H Pulse Oximetry 96 98 Oxygen Delivery Method Room Air BMI result Body Mass Index 30.8 Labs 02/08/25 00:05 02/10/25 09:39 Labs: Laboratory Results - last 48 hr 02/07/25 18:44 SEAN Titer TNP SEAN Titer 2 TNP SEAN Titer 3 TNP SEAN Pattern TNP SEAN Pattern 2 TNP SEAN Pattern 3 TNP Imaging Radiology Impressions: ITS Impressions Shoulder X-Ray 02/03/25 15:38 IMPRESSION: 1. No fracture or dislocation. 2. Moderate to severe calcific tendinopathy of the supraspinatus tendon. This has mildly improved when compared with 05/09/2024. Electronically signed by: Ji Nunes MD 02/03/2025 03:56 PM EDT RP Hand/Wrist X-Ray 02/07/25 16:58 IMPRESSION: Unremarkable examination of the left hand and wrist. Electronically signed by: Coleman Melo MD 02/08/2025 07:14 AM EDT RP Medications Medications Current Medications Acetaminophen (Acetaminophen 325 Mg Tablet) 975 mg PO BID [facility] Last Admin: 02/12/25 20:21 Dose: 975 mg Al Hydroxide/Mg Hydroxide (Magnesium Hydrox/Alum Hydrox 30 Ml Oral.Susp) 30 ml PO Q6H PRN PRN Reason: Heartburn/Nausea Last Admin: 02/05/25 17:43 Dose: 30 ml Benztropine Mesylate (Benztropine Mesylate 0.5 Mg Tablet) 0.5 mg PO BID [facility] BEDS AT [facility] Last Admin: 02/12/25 20:21 Dose: 0.5 mg Chlorpromazine HCl (Chlorpromazine Hcl 10 Mg Tablet) 10 mg PO TID PRN PRN Reason: psychosis Clonazepam (Clonazepam 1 Mg Tablet) 1 mg PO TID [facility] 234 B[facility]S [facility] Last Admin: 02/12/25 20:20 Dose: 1 mg Diphenhydramine HCl (Diphenhydramine Hcl 25 Mg Capsule) 50 mg PO BEDTIME PRN PRN Reason: Sleep Hydroxyzine HCl (Hydroxyzine Hcl 25 Mg Tablet) 25 mg PO BEDTIME [facility]CLUDE 234 BEDS AT [facility] Last Admin: 02/12/25 20:21 Dose: 25 mg Hydroxyzine HCl (Hydroxyzine Hcl 25 Mg Tablet) 25 mg PO Q6H PRN PRN Reason: mild anxiety Ibuprofen (Ibuprofen 800 Mg Tablet) 800 mg PO DAILY PRN PRN Reason: Pain, Severe (Pain Scale 7-10) Last Admin: 02/12/25 11:55 Dose: 800 mg Levothyroxine Sodium (Levothyroxine Sodium 50 Mcg Tablet) 50 mcg PO DAILY@0600 [facility] 234 B[facility]S [facility] Last Admin: 02/12/25 05:53 Dose: 50 mcg Lidocaine (Lidocaine 4 % Patch Adh..Patch) 1 patch TRANSDERMA DAILY [facility] 234 BEDS AT [facility]; Protocol Last Admin: 02/12/25 08:35 Dose: Not Given Magnesium Hydroxide (Milk Of Magnesia 30 Ml Oral.Susp) 30 ml PO DAILY PRN PRN Reason: Constipation Multi-Ingred Cream/Lotion/Oil/Oint (Mineral Oil/Petrolatum,White 106 Gm Tube) 1 appl TOPICAL TID [facility] 234 BEDS [facility]; Protocol Last Admin: 02/12/25 21:34 Dose: 1 appl Multivitamins/Vitamin C (Multivitamin Tablet) 1 tab PO DAILY [facility] 234 BEDS AT [facility] Last Admin: 02/12/25 08:32 Dose: 1 tab Nicotine (Nicotine 21 Mg Patch.Td24) 21 mg TRANSDERMA DAILY PRN PRN Reason: smoking cessation Nicotine Polacrilex (Nicotine Polacrilex 2 Mg Gum) 4 mg BUCCAL Q2H PRN PRN Reason: Nicotine Cravings Olanzapine (Olanzapine 5 Mg Tablet) 5 mg PO TID PRN PRN Reason: agitation Last Admin: 02/11/25 20:33 Dose: 5 mg Quetiapine Fumarate (Quetiapine Fumarate 50 Mg Tablet) 150 mg PO DAILY [facility] 234 B[facility]S [facility] Last Admin: 02/12/25 08:32 Dose: 150 mg Quetiapine Fumarate (Quetiapine Fumarate 100 Mg Tablet) 500 mg PO BEDTIME [facility]CLUDE 234 BEDS AT [facility] Last Admin: 02/12/25 20:20 Dose: 500 mg Sertraline HCl (Sertraline Hcl 50 Mg Tablet) 150 mg PO DAILY [facility] 234 B[facility]S AT [facility] Last Admin: 02/12/25 08:32 Dose: 150 mg Valproic Acid (Valproic Acid Liquid 250 Mg/5 Ml Solution) 750 mg PO BID [facility] 234 BEDS AT [facility] Last Admin: 02/12/25 20:21 Dose: 750 mg Allergies Allergies Allergy/AdvReac Type Severity Reaction Status Date / Time haloperidol [From HALDOL] Allergy Intermediate LOWERS Verified 01/24/25 15:43 HEART RATE trazodone AdvReac Intermediate Hives Verified 01/24/25 15:43 Assessment & Plan Assessment & Plan (1) Schizoaffective disorder: Qualifiers: Schizoaffective disorder type: unspecified Qualified Code(s): F25.9 - Schizoaffective disorder, unspecified Status: Acute Code(s): F25.9 - Schizoaffective disorder, unspecified (2) Chronic post-traumatic stress disorder (PTSD): Status: Acute Code(s): F43.12 - Post-traumatic stress disorder, chronic (3) Polysubstance use disorder: Status: Acute Code(s): F19.90 - Other psychoactive substance use, unspecified, uncomplicated Plan 59-year-old female with history of polysubstance use disorder, hypothyroidism, schizoaffective disorder bipolar type, borderline personality disorder admitted to adult Psychiatry with consult placed hospitalist service due to left hand edema with question of cellulitis. #Swelling L hand/wrist -xray L hand/wrist ordered -appearance more consistent with a contusion however no injury -this is not consistent with cellulitis -Given prior history of joint swelling/redness and current symptoms present in the R wrist as well, raises concern for autoimmune condition such as rheumatoid arthritis or less likely gout -Check cbc, crp, esr, SEAN, rheumatoid factor, uric acid -for now recommend NSAIDs and ice pack Hospital course: 02/09 decrease Depakote to 750 mg b.i.d. 02/11 No change in presentation.? Pleasant on approach.? Singing in the halls.? Complains of some arthritic right shoulder pain but otherwise no complaints.? Last night patient he would get angry at a peer during a verbal altercation and punched the pexy glass of the kitchen; patient redirectable 02/12 pt denies any HI and is upset that anyone ever said she had any HI toward anyone; keeps asking who said she had HI and cannot accept it was her Patient educated on: diagnosis and medication risk/benefits Informed Consent: understands Reason for continued inpatient stay Substantial Risk for: rapid decompensation Time Spent With Patient Time: Total time managing care of this patient today ____ minutes.
[2025-02-13] MEDS: Levothyroxine Sodium 50 MCG TABLET PO (05:01)
[2025-02-13 08:00] VITALS: BP 133/61; PULSE 74; RESP 18; TEMP 36.6; O2SAT 97
[2025-02-13] MEDS: Sertraline HCL 50 MG TABLET 150 MG PO (08:16)
[2025-02-13] MEDS: clonazePAM 1 MG TABLET PO ×3 (08:17→20:05)
[2025-02-13] MEDS: Acetaminophen 325 MG TABLET 975 MG PO ×2 (08:17→20:02)
[2025-02-13] MEDS: Benztropine Mesylate 0.5 MG TABLET PO ×2 (08:19→20:04)
[2025-02-13] MEDS: QUEtiapine Fumarate 50 MG TABLET 150 MG PO (08:19)
[2025-02-13] MEDS: Multivitamin TABLET 1 TAB PO (08:19)
[2025-02-13] MEDS: Valproic Acid Liquid 250 MG/5 ML SOLUTION 750 MG PO (08:21)
--- NOTE | 2025-02-13 10:10 | HO.PSYCHPN ---
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 Review of potential SE of Depakote and current CBCD results. Discussed being upset with former room-mate and anxious. Upset with how she is perceived on the unit. Describes heartburn, will consider Prilosec trial. Reports discussion with DM was positive Medication Compliance: Yes Side effects from medications: No Attending Groups: Intermittent Review of Systems Iron Profile, B12, Folate WNL with decreasing WBC, RBC, Plts, H&H. ?Depakote SE Medical Review of Systems: changed Mental Status Exam Mental Status Exam Patient Appearance: Appropriate Patient Orientation: Person, Place, Time and Situation Level of Consciousness: Alert Patient Behavior: Talkative and Good Eye Contact Mood Description: Apprehensive Affect Description: Apprehensive Patient Cognition Impaired: No Ability to Follow Directions: Good Speech Pattern: Spontaneous Speech Memory Description: Episodic Impaired Hallucinations: None Delusions: Not Present Thought Process: Distracted Thought Content: positive for Circumstantial and positive for Homicidal Ideation (denies over the weekend, today, denies she was ever having HI) Depressive Symptoms: Increased Anxiety Judgement: Fair Diagnostics Vital Signs (24Hr): Vital Signs - 24 hr 02/12/25 19:43 02/13/25 08:00 Temperature 97.6 F 97.8 F Pulse Rate 68 74 Respiratory Rate 15 18 Blood Pressure 148/69 H 133/61 Pulse Oximetry 98 97 Oxygen Delivery Method Room Air BMI result Body Mass Index 30.8 Labs 02/08/25 00:05 02/10/25 09:39 Labs: Laboratory Results - last 48 hr 02/07/25 18:44 SEAN Titer TNP SEAN Titer 2 TNP SEAN Titer 3 TNP SEAN Pattern TNP SEAN Pattern 2 TNP SEAN Pattern 3 TNP Imaging Radiology Impressions: ITS Impressions Shoulder X-Ray 02/03/25 15:38 IMPRESSION: 1. No fracture or dislocation. 2. Moderate to severe calcific tendinopathy of the supraspinatus tendon. This has mildly improved when compared with 05/09/2024. Electronically signed by: Ji Nunes MD 02/03/2025 03:56 PM EDT Hand/Wrist X-Ray 02/07/25 16:58 IMPRESSION: Unremarkable examination of the left hand and wrist. Electronically signed by: Coleman Melo MD 02/08/2025 07:14 AM EDT Medications Medications Current Medications Acetaminophen (Acetaminophen 325 Mg Tablet) 975 mg PO BID [facility] Last Admin: 02/13/25 08:17 Dose: 975 mg Al Hydroxide/Mg Hydroxide (Magnesium Hydrox/Alum Hydrox 30 Ml Oral.Susp) 30 ml PO Q6H PRN PRN Reason: Heartburn/Nausea Last Admin: 02/05/25 17:43 Dose: 30 ml Benztropine Mesylate (Benztropine Mesylate 0.5 Mg Tablet) 0.5 mg PO BID [facility] Last Admin: 02/13/25 08:19 Dose: 0.5 mg Chlorpromazine HCl (Chlorpromazine Hcl 10 Mg Tablet) 10 mg PO TID PRN PRN Reason: psychosis Clonazepam (Clonazepam 1 Mg Tablet) 1 mg PO TID [facility] Last Admin: 02/13/25 08:17 Dose: 1 mg Diphenhydramine HCl (Diphenhydramine Hcl 25 Mg Capsule) 50 mg PO BEDTIME PRN PRN Reason: Sleep Hydroxyzine HCl (Hydroxyzine Hcl 25 Mg Tablet) 25 mg PO BEDTIME [facility] Last Admin: 02/12/25 20:21 Dose: 25 mg Hydroxyzine HCl (Hydroxyzine Hcl 25 Mg Tablet) 25 mg PO Q6H PRN PRN Reason: mild anxiety Ibuprofen (Ibuprofen 800 Mg Tablet) 800 mg PO DAILY PRN PRN Reason: Pain, Severe (Pain Scale 7-10) Last Admin: 02/12/25 11:55 Dose: 800 mg Levothyroxine Sodium (Levothyroxine Sodium 50 Mcg Tablet) 50 mcg PO DAILY@0600 [facility] Last Admin: 02/13/25 05:01 Dose: 50 mcg Lidocaine (Lidocaine 4 % Patch Adh..Patch) 1 patch TRANSDERMA DAILY [facility]; Protocol Last Admin: 02/13/25 08:20 Dose: Not Given Magnesium Hydroxide (Milk Of Magnesia 30 Ml Oral.Susp) 30 ml PO DAILY PRN PRN Reason: Constipation Multi-Ingred Cream/Lotion/Oil/Oint (Mineral Oil/Petrolatum,White 106 Gm Tube) 1 appl TOPICAL TID [facility]; Protocol Last Admin: 02/13/25 08:21 Dose: Not Given Multivitamins/Vitamin C (Multivitamin Tablet) 1 tab PO DAILY [facility] Last Admin: 02/13/25 08:19 Dose: 1 tab Nicotine (Nicotine 21 Mg Patch.Td24) 21 mg TRANSDERMA DAILY PRN PRN Reason: smoking cessation Nicotine Polacrilex (Nicotine Polacrilex 2 Mg Gum) 4 mg BUCCAL Q2H PRN PRN Reason: Nicotine Cravings Olanzapine (Olanzapine 5 Mg Tablet) 5 mg PO TID PRN PRN Reason: agitation Last Admin: 02/11/25 20:33 Dose: 5 mg Quetiapine Fumarate (Quetiapine Fumarate 50 Mg Tablet) 150 mg PO DAILY [facility] Last Admin: 02/13/25 08:19 Dose: 150 mg Quetiapine Fumarate (Quetiapine Fumarate 100 Mg Tablet) 500 mg PO BEDTIME [facility] Last Admin: 02/12/25 20:20 Dose: 500 mg Sertraline HCl (Sertraline Hcl 50 Mg Tablet) 150 mg PO DAILY [facility] Last Admin: 02/13/25 08:16 Dose: 150 mg Valproic Acid (Valproic Acid Liquid 250 Mg/5 Ml Solution) 750 mg PO BID [facility] Last Admin: 02/13/25 08:21 Dose: 750 mg Allergies Allergies Allergy/AdvReac Type Severity Reaction Status Date / Time haloperidol [From HALDOL] Allergy Intermediate LOWERS Verified 01/24/25 15:43 HEART RATE trazodone AdvReac Intermediate Hives Verified 01/24/25 15:43 Assessment & Plan Assessment & Plan (1) Schizoaffective disorder: Qualifiers: Schizoaffective disorder type: unspecified Qualified Code(s): F25.9 - Schizoaffective disorder, unspecified Status: Acute Code(s): F25.9 - Schizoaffective disorder, unspecified (2) Chronic post-traumatic stress disorder (PTSD): Status: Acute Code(s): F43.12 - Post-traumatic stress disorder, chronic (3) Polysubstance use disorder: Status: Acute Code(s): F19.90 - Other psychoactive substance use, unspecified, uncomplicated Plan 59-year-old female with history of polysubstance use disorder, hypothyroidism, schizoaffective disorder bipolar type, borderline personality disorder admitted to adult Psychiatry with consult placed hospitalist service due to left hand edema with question of cellulitis. #Swelling L hand/wrist -xray L hand/wrist ordered -appearance more consistent with a contusion however no injury -this is not consistent with cellulitis -Given prior history of joint swelling/redness and current symptoms present in the R wrist as well, raises concern for autoimmune condition such as rheumatoid arthritis or less likely gout -Check cbc, crp, esr, SEAN, rheumatoid factor, uric acid -for now recommend NSAIDs and ice pack Hospital course: 02/09 decrease Depakote to 750 mg b.i.d. 02/11 No change in presentation.? Pleasant on approach.? Singing in the halls.? Complains of some arthritic right shoulder pain but otherwise no complaints.? Last night patient he would get angry at a peer during a verbal altercation and punched the pexy glass of the kitchen; patient redirectable 02/12 pt denies any HI and is upset that anyone ever said she had any HI toward anyone; keeps asking who said she had HI and cannot accept it was her 02/13 Decrease Depakote to 500 mg bid CBCD, BMP on 02/14. Reason for continued inpatient stay Substantial Risk for: rapid decompensation Time Spent With Patient Time: Total time managing care of this patient today ____ minutes.
[2025-02-13] MEDS: Ibuprofen 800 MG TABLET PO (10:39)
[2025-02-13] MEDS: Lidocaine 4 % Patch ADH..PATCH 1 PATCH TRANSDERMA (10:39)
[2025-02-13] MEDS: Mineral Oil/Petrolatum,White 106 GM Tube 1 APPL TOPICAL (15:41)
[2025-02-13] MEDS: Magnesium Hydrox/Alum Hydrox 30 ML ORAL.SUSP PO (18:52)
[2025-02-13 20:00] VITALS: BP 152/83; PULSE 94; TEMP 36.4; O2SAT 97
[2025-02-13] MEDS: QUEtiapine Fumarate 100 MG TABLET 500 MG PO (20:04)
[2025-02-13] MEDS: Valproic Acid Liquid 250 MG/5 ML SOLUTION 500 MG PO (20:06)
[2025-02-14] MEDS: Levothyroxine Sodium 50 MCG TABLET PO (06:43)
[2025-02-14 08:00] VITALS: BP 132/77; PULSE 87; RESP 20; TEMP 36.2; O2SAT 92
[2025-02-14] MEDS: Acetaminophen 325 MG TABLET 975 MG PO ×2 (08:29→20:11)
[2025-02-14] MEDS: Benztropine Mesylate 0.5 MG TABLET PO ×2 (08:30→20:12)
[2025-02-14] MEDS: Sertraline HCL 50 MG TABLET 150 MG PO (08:31)
[2025-02-14] MEDS: Multivitamin TABLET 1 TAB PO (08:31)
[2025-02-14] MEDS: clonazePAM 1 MG TABLET PO ×3 (08:32→20:12)
[2025-02-14] MEDS: Lidocaine 4 % Patch ADH..PATCH 1 PATCH TRANSDERMA (08:32)
[2025-02-14] MEDS: Valproic Acid Liquid 250 MG/5 ML SOLUTION 500 MG PO ×2 (08:32→20:12)
[2025-02-14] MEDS: QUEtiapine Fumarate 50 MG TABLET 150 MG PO (08:32)
[2025-02-14 09:49] LABS: MANUAL DIFF FLAG NO
[2025-02-14 09:52] LABS: Basophils Percent Auto 0.5 % (0-2); Eosinophils Absolute Auto 0.1 X10*3/uL (0.0-0.4); Eosinophils Percent Auto 2.4 % (0-4); Hematocrit 37.5 % (37.0-47.0); Hemoglobin 12.5 g/dl (12.0-16.0); Imm Gran Abs Auto 0.11 X10*3/uL (0.00-0.03); Imm Gran Pct Auto 2.6 % (0.0-0.4); Lymphocytes Percent Auto 47.7 % (20-40); Mean Corpuscular HGB Conc 33.3 g/dl (31.0-35.0); Mean Corpuscular Volume 89.9 fL (80.0-98.0); Monocytes Absolute Auto 0.8 X10*3/uL (0.1-1.2); Monocytes Percent Auto 17.8 % (2-11); Neutrophils Absolute Auto 1.2 x10*3/uL (2.0-8.3); Platelet Count 142 X10*3/uL (160-400); Red Blood Count 4.17 X10*6/uL (4.20-5.50); Red Cell Distribution Width 14.5 % (11.0-16.0); White Blood Count 4.2 X10*3/uL (4.8-10.8)
[2025-02-14] MEDS: Omeprazole 20 MG CAPSULE.DR PO ×2 (10:00→16:16)
[2025-02-14 10:06] LABS: Anion Gap 13 (12-20); Blood Urea Nitrogen 16 mg/dL (9-16); Calcium 9.6 mg/dL (8.4-10.2); Carbon Dioxide 28 mmol/L (22-29); Chloride 100 mmol/L (96-108); Creatinine Clr Calc Pharmacy 88.7; Estimated Glomerular Filt Rate > 60; Glucose Random 137 mg/dL (60-115); Potassium 5.2 mmol/L (3.3-5.1); Sodium 136 mmol/L (135-145)
--- NOTE | 2025-02-14 12:31 | P.PNPSI_ITS ---
Subjective Subjective Date of Service: 02/14/25 Reason For Visit: depressed Subjective Notes: Conditional Voluntary Healthcare Proxy: No Guardianship: No Medical Problems Affecting Mental Status: No Interim History: Team reports pt slept nine hours. Pt reports she was awake x 1 at 3am and able to return to sleep CSS referrals are submitted for pt Reports LLE pain and edema. Ultrasound/duplex ordered. Conflict with a peer who made a racial comment to pt. Pt responded but was able to redirect by the team. Discussed medical sx with Dr. Beasley who reviewed diagnostics. [facility] Vascular team will review per his request. Tolerating Depakote decrease Medication Compliance: Yes Side effects from medications: No Attending Groups: Intermittent Review of Systems as noted Review of Systems Review of Systems RLE pain, edema Duplex ordered Mental Status Exam Mental Status Exam Patient Appearance: Appropriate Patient Orientation: Person, Place, Time and Situation Level of Consciousness: Alert Patient Behavior: Talkative and Good Eye Contact Mood Description: Apprehensive Affect Description: Apprehensive Patient Cognition Impaired: No Ability to Follow Directions: Good Speech Pattern: Spontaneous Speech Memory Description: Episodic Impaired Hallucinations: None Delusions: Not Present Thought Process: Distracted Thought Content: positive for Circumstantial Depressive Symptoms: Increased Anxiety Judgement: Fair Diagnostics Vital Signs (24Hr): Vital Signs - 24 hr 02/13/25 20:00 02/14/25 08:00 Temperature 97.5 F 97.1 F Pulse Rate 94 87 Respiratory Rate 20 Blood Pressure 152/83 H 132/77 Pulse Oximetry 97 92 Oxygen Delivery Method Room Air Room Air BMI result Body Mass Index 30.8 Labs 02/14/25 09:42 02/14/25 09:42 Labs: Laboratory Results - last 48 hr 02/07/25 02/14/25 18:44 09:42 WBC 4.2 L RBC 4.17 L D Hgb 12.5 D Hct 37.5 D MCV 89.9 MCH 30.0 MCHC 33.3 RDW 14.5 Plt Count 142 L D MPV 9.0 L Immature Gran % (Auto) 2.6 H Neut % (Auto) 29.0 L Lymph % (Auto) 47.7 H [place] % (Auto) 17.8 H Eos % (Auto) 2.4 Baso % (Auto) 0.5 Lymph # (Auto) 2.0 [place] # (Auto) 0.8 Eos # (Auto) 0.1 Baso # (Auto) 0.0 Abs Immat Gran (auto) 0.11 H Absolute Neuts (auto) 1.2 L Absolute Nucleated RBC 0.000 Nucleated RBC % (auto) 0.0 Sodium 136 Potassium 5.2 H Chloride 100 Carbon Dioxide 28 Anion Gap 13 BUN 16 Creatinine 0.67 Estim Creat Clear Calc 88.7 Estimated GFR > 60 Random Glucose 137 H Calcium 9.6 SEAN Titer TNP SEAN Titer 2 TNP SEAN Titer 3 TNP SEAN Pattern TNP SEAN Pattern 2 TNP SEAN Pattern 3 TNP Imaging Radiology Impressions: ITS Impressions Shoulder X-Ray 02/03/25 15:38 IMPRESSION: 1. No fracture or dislocation. 2. Moderate to severe calcific tendinopathy of the supraspinatus tendon. This has mildly improved when compared with 05/09/2024. Electronically signed by: Ji Nunes MD 02/03/2025 03:56 PM EDT Hand/Wrist X-Ray 02/07/25 16:58 IMPRESSION: Unremarkable examination of the left hand and wrist. Electronically signed by: Coleman Melo MD 02/08/2025 07:14 AM EDT RP Medications Medications Current Medications Acetaminophen (Acetaminophen 325 Mg Tablet) 975 mg PO BID [facility] Last Admin: 02/14/25 08:29 Dose: 975 mg Al Hydroxide/Mg Hydroxide (Magnesium Hydrox/Alum Hydrox 30 Ml Oral.Susp) 30 ml PO Q6H PRN PRN Reason: Heartburn/Nausea Last Admin: 02/13/25 18:52 Dose: 30 ml Benztropine Mesylate (Benztropine Mesylate 0.5 Mg Tablet) 0.5 mg PO BID [facility] Last Admin: 02/14/25 08:30 Dose: 0.5 mg Clonazepam (Clonazepam 1 Mg Tablet) 1 mg PO TID [facility] Last Admin: 02/14/25 08:32 Dose: 1 mg Diphenhydramine HCl (Diphenhydramine Hcl 25 Mg Capsule) 50 mg PO BEDTIME PRN PRN Reason: Sleep Ibuprofen (Ibuprofen 800 Mg Tablet) 800 mg PO DAILY PRN PRN Reason: Pain, Severe (Pain Scale 7-10) Last Admin: 02/13/25 10:39 Dose: 800 mg Levothyroxine Sodium (Levothyroxine Sodium 50 Mcg Tablet) 50 mcg PO DAILY@0600 [facility] Last Admin: 02/14/25 06:43 Dose: 50 mcg Lidocaine (Lidocaine 4 % Patch Adh..Patch) 1 patch TRANSDERMA DAILY [facility]; Protocol Last Admin: 02/14/25 08:32 Dose: 1 patch Magnesium Hydroxide (Milk Of Magnesia 30 Ml Oral.Susp) 30 ml PO DAILY PRN PRN Reason: Constipation Multi-Ingred Cream/Lotion/Oil/Oint (Mineral Oil/Petrolatum,White 106 Gm Tube) 1 appl TOPICAL TID [facility]; Protocol Last Admin: 02/14/25 08:34 Dose: Not Given Multivitamins/Vitamin C (Multivitamin Tablet) 1 tab PO DAILY [facility] Last Admin: 02/14/25 08:31 Dose: 1 tab Olanzapine (Olanzapine 5 Mg Tablet) 5 mg PO TID PRN PRN Reason: agitation Last Admin: 02/11/25 20:33 Dose: 5 mg Omeprazole (Omeprazole 20 Mg Capsule.Dr) 20 mg PO BID@0630,1630 [facility] Last Admin: 02/14/25 10:00 Dose: 20 mg Quetiapine Fumarate (Quetiapine Fumarate 50 Mg Tablet) 150 mg PO DAILY [facility] Last Admin: 02/14/25 08:32 Dose: 150 mg Quetiapine Fumarate (Quetiapine Fumarate 100 Mg Tablet) 500 mg PO BEDTIME [facility] Last Admin: 02/13/25 20:04 Dose: 500 mg Sertraline HCl (Sertraline Hcl 50 Mg Tablet) 150 mg PO DAILY [facility] Last Admin: 02/14/25 08:31 Dose: 150 mg Valproic Acid (Valproic Acid Liquid 250 Mg/5 Ml Solution) 500 mg PO BID [facility] Last Admin: 02/14/25 08:32 Dose: 500 mg Allergies Allergies Allergy/AdvReac Type Severity Reaction Status Date / Time haloperidol [From HALDOL] Allergy Intermediate LOWERS Verified 01/24/25 15:43 HEART RATE trazodone AdvReac Intermediate Hives Verified 01/24/25 15:43 Assessment & Plan Assessment & Plan (1) Schizoaffective disorder: Qualifiers: Schizoaffective disorder type: unspecified Qualified Code(s): F25.9 - Schizoaffective disorder, unspecified Status: Acute Code(s): F25.9 - Schizoaffective disorder, unspecified (2) Chronic post-traumatic stress disorder (PTSD): Status: Acute Code(s): F43.12 - Post-traumatic stress disorder, chronic (3) Polysubstance use disorder: Status: Acute Code(s): F19.90 - Other psychoactive substance use, unspecified, uncomplicated Plan 59-year-old female with history of polysubstance use disorder, hypothyroidism, schizoaffective disorder bipolar type, borderline personality disorder admitted to adult Psychiatry with consult placed hospitalist service due to left hand edema with question of cellulitis. #Swelling L hand/wrist -xray L hand/wrist ordered -appearance more consistent with a contusion however no injury -this is not consistent with cellulitis -Given prior history of joint swelling/redness and current symptoms present in the R wrist as well, raises concern for autoimmune condition such as rheumatoid arthritis or less likely gout -Check cbc, crp, esr, SEAN, rheumatoid factor, uric acid -for now recommend NSAIDs and ice pack Hospital course: 02/09 decrease Depakote to 750 mg b.i.d. 02/11 No change in presentation.? Pleasant on approach.? Singing in the halls.? Complains of some arthritic right shoulder pain but otherwise no complaints.? Last night patient he would get angry at a peer during a verbal altercation and punched the pexy glass of the kitchen; patient redirectable 02/12 pt denies any HI and is upset that anyone ever said she had any HI toward anyone; keeps asking who said she had HI and cannot accept it was her 02/13 Decrease Depakote to 500 mg bid CBCD, BMP on 02/14. 02/14 CBCD improved with Depakote decrease K+ slightly elevated Reason for continued inpatient stay Substantial Risk for: rapid decompensation Time Spent With Patient Time: Total time managing care of this patient today ____ minutes.
[2025-02-14 19:32] VITALS: BP 147/82; PULSE 93; TEMP 36.4; O2SAT 95
[2025-02-14] MEDS: QUEtiapine Fumarate 100 MG TABLET 500 MG PO (20:12)
[2025-02-14] MEDS: OLANZapine 5 MG TABLET PO (20:12)
[2025-02-15] MEDS: Levothyroxine Sodium 50 MCG TABLET PO (05:48)
[2025-02-15] MEDS: Omeprazole 20 MG CAPSULE.DR PO ×2 (06:17→15:23)
[2025-02-15 08:00] VITALS: BP 138/66; PULSE 83; TEMP 36.5; O2SAT 97
[2025-02-15] MEDS: QUEtiapine Fumarate 50 MG TABLET 150 MG PO (08:42)
[2025-02-15] MEDS: Multivitamin TABLET 1 TAB PO (08:43)
[2025-02-15] MEDS: Benztropine Mesylate 0.5 MG TABLET PO ×2 (08:43→21:57)
[2025-02-15] MEDS: Sertraline HCL 50 MG TABLET 150 MG PO (08:43)
[2025-02-15] MEDS: clonazePAM 1 MG TABLET PO ×3 (08:44→21:56)
[2025-02-15] MEDS: Acetaminophen 325 MG TABLET 975 MG PO ×2 (08:44→21:56)
[2025-02-15] MEDS: Valproic Acid Liquid 250 MG/5 ML SOLUTION 500 MG PO ×2 (08:45→21:56)
[2025-02-15] MEDS: Mineral Oil/Petrolatum,White 106 GM Tube 1 APPL TOPICAL (08:47)
--- NOTE | 2025-02-15 10:44 | HO.PSYCHPN ---
Subjective Subjective Date of Service: 02/15/25 Reason For Visit: depressed Subjective Notes: Conditional Voluntary Healthcare Proxy: No Guardianship: No Medical Problems Affecting Mental Status: No Interim History: [facility] Vascular team has reviewed pt's diagnostics. They find no acute issues. Pt may benefit from compression socks, elevation and following a proper . Met with pt and [facility] Electrician Maintenance. Pt agrees with the recommendations. Reports she talked with her sister today. Pt states sister will move to [place] from [place] in the near future, and we will live together as we have before. Continues to report LE pain, relieved with rest. Reports mood to be good , visable in milieu. Denies SI,HI,AH,VH Medication Compliance: Yes Side effects from medications: No Attending Groups: Intermittent Review of Systems as noted Review of Systems Review of Systems LE pain Mental Status Exam Mental Status Exam Patient Appearance: Appropriate Patient Orientation: Person, Place, Time and Situation Level of Consciousness: Alert Patient Behavior: Talkative and Good Eye Contact Mood Description: Flat Affect Description: Flat Patient Cognition Impaired: No Ability to Follow Directions: Good Speech Pattern: Spontaneous Speech Memory Description: Episodic Impaired Hallucinations: None Delusions: Not Present Thought Process: Distracted Thought Content: positive for Circumstantial Depressive Symptoms: Increased Anxiety Judgement: Fair Diagnostics Vital Signs (24Hr): Vital Signs - 24 hr 02/14/25 19:32 02/15/25 08:00 Temperature 97.6 F 97.7 F Pulse Rate 93 83 Blood Pressure 147/82 H 138/66 Pulse Oximetry 95 97 Oxygen Delivery Method Room Air Room Air BMI result Body Mass Index 30.8 Labs 02/14/25 09:42 02/14/25 09:42 Labs: Laboratory Results - last 48 hr 02/14/25 09:42 WBC 4.2 L RBC 4.17 L D Hgb 12.5 D Hct 37.5 D MCV 89.9 MCH 30.0 MCHC 33.3 RDW 14.5 Plt Count 142 L D MPV 9.0 L Immature Gran % (Auto) 2.6 H Neut % (Auto) 29.0 L Lymph % (Auto) 47.7 H [place] % (Auto) 17.8 H Eos % (Auto) 2.4 Baso % (Auto) 0.5 Lymph # (Auto) 2.0 [place] # (Auto) 0.8 Eos # (Auto) 0.1 Baso # (Auto) 0.0 Abs Immat Gran (auto) 0.11 H Absolute Neuts (auto) 1.2 L Absolute Nucleated RBC 0.000 Nucleated RBC % (auto) 0.0 Sodium 136 Potassium 5.2 H Chloride 100 Carbon Dioxide 28 Anion Gap 13 BUN 16 Creatinine 0.67 Estim Creat Clear Calc 88.7 Estimated GFR > 60 Random Glucose 137 H Calcium 9.6 Imaging Radiology Impressions: ITS Impressions Shoulder X-Ray 02/03/25 15:38 IMPRESSION: 1. No fracture or dislocation. 2. Moderate to severe calcific tendinopathy of the supraspinatus tendon. This has mildly improved when compared with 05/09/2024. Electronically signed by: Ji Nunes MD 02/03/2025 03:56 PM EDT RP Hand/Wrist X-Ray 02/07/25 16:58 IMPRESSION: Unremarkable examination of the left hand and wrist. Electronically signed by: Coleman Melo MD 02/08/2025 07:14 AM EDT RP Duplex Scan Lower Extremity Artery 02/14/25 16:45 IMPRESSION: Mild inflow disease in the left peroneal and anterior tibialis arteries. No occlusion. Electronically signed by: Abraham Capellan MD 02/15/2025 08:21 AM EDT RP Medications Medications Current Medications Acetaminophen (Acetaminophen 325 Mg Tablet) 975 mg PO BID [facility] Last Admin: 02/15/25 08:44 Dose: 975 mg Al Hydroxide/Mg Hydroxide (Magnesium Hydrox/Alum Hydrox 30 Ml Oral.Susp) 30 ml PO Q6H PRN PRN Reason: Heartburn/Nausea Last Admin: 02/13/25 18:52 Dose: 30 ml Benztropine Mesylate (Benztropine Mesylate 0.5 Mg Tablet) 0.5 mg PO BID [facility] Last Admin: 02/15/25 08:43 Dose: 0.5 mg Clonazepam (Clonazepam 1 Mg Tablet) 1 mg PO TID [facility] Last Admin: 02/15/25 08:44 Dose: 1 mg Diphenhydramine HCl (Diphenhydramine Hcl 25 Mg Capsule) 50 mg PO BEDTIME PRN PRN Reason: Sleep Ibuprofen (Ibuprofen 800 Mg Tablet) 800 mg PO DAILY PRN PRN Reason: Pain, Severe (Pain Scale 7-10) Last Admin: 02/13/25 10:39 Dose: 800 mg Levothyroxine Sodium (Levothyroxine Sodium 50 Mcg Tablet) 50 mcg PO DAILY@0600 [facility] Last Admin: 02/15/25 05:48 Dose: 50 mcg Lidocaine (Lidocaine 4 % Patch Adh..Patch) 1 patch TRANSDERMA DAILY [facility]; Protocol Last Admin: 02/14/25 08:32 Dose: 1 patch Magnesium Hydroxide (Milk Of Magnesia 30 Ml Oral.Susp) 30 ml PO DAILY PRN PRN Reason: Constipation Multi-Ingred Cream/Lotion/Oil/Oint (Mineral Oil/Petrolatum,White 106 Gm Tube) 1 appl TOPICAL TID [facility]; Protocol Last Admin: 02/15/25 08:47 Dose: 1 appl Multivitamins/Vitamin C (Multivitamin Tablet) 1 tab PO DAILY [facility] Last Admin: 02/15/25 08:43 Dose: 1 tab Olanzapine (Olanzapine 5 Mg Tablet) 5 mg PO TID PRN PRN Reason: agitation Last Admin: 02/14/25 20:12 Dose: 5 mg Omeprazole (Omeprazole 20 Mg Capsule.Dr) 20 mg PO BID@0630,1630 [facility] Last Admin: 02/15/25 06:17 Dose: 20 mg Quetiapine Fumarate (Quetiapine Fumarate 50 Mg Tablet) 150 mg PO DAILY [facility] Last Admin: 02/15/25 08:42 Dose: 150 mg Quetiapine Fumarate (Quetiapine Fumarate 100 Mg Tablet) 500 mg PO BEDTIME [facility] Last Admin: 02/14/25 20:12 Dose: 500 mg Sertraline HCl (Sertraline Hcl 50 Mg Tablet) 150 mg PO DAILY [facility] Last Admin: 02/15/25 08:43 Dose: 150 mg Valproic Acid (Valproic Acid Liquid 250 Mg/5 Ml Solution) 500 mg PO BID [facility] Last Admin: 02/15/25 08:45 Dose: 500 mg Allergies Allergies Allergy/AdvReac Type Severity Reaction Status Date / Time haloperidol [From HALDOL] Allergy Intermediate LOWERS Verified 01/24/25 15:43 HEART RATE trazodone AdvReac Intermediate Hives Verified 01/24/25 15:43 Assessment & Plan Assessment & Plan (1) Schizoaffective disorder: Qualifiers: Schizoaffective disorder type: unspecified Qualified Code(s): F25.9 - Schizoaffective disorder, unspecified Status: Acute Code(s): F25.9 - Schizoaffective disorder, unspecified (2) Chronic post-traumatic stress disorder (PTSD): Status: Acute Code(s): F43.12 - Post-traumatic stress disorder, chronic (3) Polysubstance use disorder: Status: Acute Code(s): F19.90 - Other psychoactive substance use, unspecified, uncomplicated Plan 59-year-old female with history of polysubstance use disorder, hypothyroidism, schizoaffective disorder bipolar type, borderline personality disorder admitted to adult Psychiatry with consult placed hospitalist service due to left hand edema with question of cellulitis. #Swelling L hand/wrist -xray L hand/wrist ordered -appearance more consistent with a contusion however no injury -this is not consistent with cellulitis -Given prior history of joint swelling/redness and current symptoms present in the R wrist as well, raises concern for autoimmune condition such as rheumatoid arthritis or less likely gout -Check cbc, crp, esr, SEAN, rheumatoid factor, uric acid -for now recommend NSAIDs and ice pack Hospital course: 02/09 decrease Depakote to 750 mg b.i.d. 02/11 No change in presentation.? Pleasant on approach.? Singing in the halls.? Complains of some arthritic right shoulder pain but otherwise no complaints.? Last night patient he would get angry at a peer during a verbal altercation and punched the pexy glass of the kitchen; patient redirectable 02/12 pt denies any HI and is upset that anyone ever said she had any HI toward anyone; keeps asking who said she had HI and cannot accept it was her 02/13 Decrease Depakote to 500 mg bid CBCD, BMP on 02/14. 02/15 Continue current regime/plan Reason for continued inpatient stay Substantial Risk for: rapid decompensation Time Spent With Patient Time: Total time managing care of this patient today ____ minutes.
[2025-02-15 19:35] VITALS: BP 139/81; PULSE 87; TEMP 36.7; O2SAT 98
[2025-02-15] MEDS: QUEtiapine Fumarate 100 MG TABLET 500 MG PO (21:56)
[2025-02-16] MEDS: Omeprazole 20 MG CAPSULE.DR PO ×2 (06:26→16:06)
[2025-02-16] MEDS: Levothyroxine Sodium 50 MCG TABLET PO (06:26)
[2025-02-16] MEDS: Acetaminophen 325 MG TABLET 975 MG PO ×2 (09:15→20:54)
[2025-02-16] MEDS: Valproic Acid Liquid 250 MG/5 ML SOLUTION 500 MG PO ×2 (09:15→20:57)
[2025-02-16] MEDS: Multivitamin TABLET 1 TAB PO (09:16)
[2025-02-16] MEDS: QUEtiapine Fumarate 50 MG TABLET 150 MG PO (09:16)
[2025-02-16] MEDS: Sertraline HCL 50 MG TABLET 150 MG PO (09:16)
[2025-02-16] MEDS: Benztropine Mesylate 0.5 MG TABLET PO ×2 (09:17→20:56)
[2025-02-16] MEDS: Mineral Oil/Petrolatum,White 106 GM Tube 1 APPL TOPICAL (09:17)
[2025-02-16] MEDS: clonazePAM 1 MG TABLET PO ×3 (09:17→20:55)
[2025-02-16 09:57] VITALS: BP 137/70; PULSE 86; TEMP 36.3; O2SAT 95
[2025-02-16] MEDS: Ibuprofen 800 MG TABLET PO (12:00)
--- NOTE | 2025-02-16 14:24 | HO.PSYCHPN ---
Subjective Subjective Date of Service: 02/16/25 Reason For Visit: depressed Subjective Notes: Conditional Voluntary Healthcare Proxy: No Guardianship: No Medical Problems Affecting Mental Status: No Interim History: Reports feeling tired, sluggish, overmedicated. Discussed decreasing Klonopin and Seroquel, will trial Pt reports she has been talking with her sister about a move to [place]. Encouraged pt to have sister call the team to discuss her thoughts. Pt is receptive to this idea, stating she has several family members in that area. [phone] per their request Medication Compliance: Yes Side effects from medications: Yes Attending Groups: Intermittent Review of Systems Acute medical concerns: No Review of Systems Review of Systems Denies Mental Status Exam Mental Status Exam Patient Appearance: Appropriate Patient Orientation: Person, Place, Time and Situation Level of Consciousness: Alert Patient Behavior: Talkative and Good Eye Contact Mood Description: Flat Affect Description: Flat Patient Cognition Impaired: No Ability to Follow Directions: Good Speech Pattern: Spontaneous Speech Memory Description: Episodic Impaired Hallucinations: None Delusions: Not Present Thought Process: Distracted Thought Content: positive for Circumstantial Depressive Symptoms: Increased Anxiety Judgement: Fair Diagnostics Vital Signs (24Hr): Vital Signs - 24 hr 02/15/25 19:35 02/16/25 09:57 Temperature 98.0 F 97.4 F Pulse Rate 87 86 Blood Pressure 139/81 137/70 Pulse Oximetry 98 95 Oxygen Delivery Method Room Air Room Air BMI result Body Mass Index 30.8 Labs 02/14/25 09:42 02/14/25 09:42 Imaging Radiology Impressions: ITS Impressions Shoulder X-Ray 02/03/25 15:38 IMPRESSION: 1. No fracture or dislocation. 2. Moderate to severe calcific tendinopathy of the supraspinatus tendon. This has mildly improved when compared with 05/09/2024. Electronically signed by: Ji Nunes MD 02/03/2025 03:56 PM EDT RP Hand/Wrist X-Ray 02/07/25 16:58 IMPRESSION: Unremarkable examination of the left hand and wrist. Electronically signed by: Coleman Melo MD 02/08/2025 07:14 AM EDT RP Duplex Scan Lower Extremity Artery 02/14/25 16:45 IMPRESSION: Mild inflow disease in the left peroneal and anterior tibialis arteries. No occlusion. Electronically signed by: Abraham Capellan MD 02/15/2025 08:21 AM EDT Medications Medications Current Medications Acetaminophen (Acetaminophen 325 Mg Tablet) 975 mg PO BID [facility] Last Admin: 02/16/25 09:15 Dose: 975 mg Al Hydroxide/Mg Hydroxide (Magnesium Hydrox/Alum Hydrox 30 Ml Oral.Susp) 30 ml PO Q6H PRN PRN Reason: Heartburn/Nausea Last Admin: 02/13/25 18:52 Dose: 30 ml Benztropine Mesylate (Benztropine Mesylate 0.5 Mg Tablet) 0.5 mg PO BID [facility] Last Admin: 02/16/25 09:17 Dose: 0.5 mg Clonazepam (Clonazepam 1 Mg Tablet) 1 mg PO TID [facility] Last Admin: 02/16/25 09:17 Dose: 1 mg Diphenhydramine HCl (Diphenhydramine Hcl 25 Mg Capsule) 50 mg PO BEDTIME PRN PRN Reason: Sleep Ibuprofen (Ibuprofen 800 Mg Tablet) 800 mg PO DAILY PRN PRN Reason: Pain, Severe (Pain Scale 7-10) Last Admin: 02/16/25 12:00 Dose: 800 mg Levothyroxine Sodium (Levothyroxine Sodium 50 Mcg Tablet) 50 mcg PO DAILY@0600 [facility] Last Admin: 02/16/25 06:26 Dose: 50 mcg Lidocaine (Lidocaine 4 % Patch Adh..Patch) 1 patch TRANSDERMA DAILY [facility]; Protocol Last Admin: 02/16/25 09:22 Dose: Not Given Magnesium Hydroxide (Milk Of Magnesia 30 Ml Oral.Susp) 30 ml PO DAILY PRN PRN Reason: Constipation Multi-Ingred Cream/Lotion/Oil/Oint (Mineral Oil/Petrolatum,White 106 Gm Tube) 1 appl TOPICAL TID [facility]; Protocol Last Admin: 02/16/25 09:17 Dose: 1 appl Multivitamins/Vitamin C (Multivitamin Tablet) 1 tab PO DAILY [facility] Last Admin: 02/16/25 09:16 Dose: 1 tab Olanzapine (Olanzapine 5 Mg Tablet) 5 mg PO TID PRN PRN Reason: agitation Last Admin: 02/14/25 20:12 Dose: 5 mg Omeprazole (Omeprazole 20 Mg Capsule.Dr) 20 mg PO BID@0630,2760 [facility] Last Admin: 02/16/25 06:26 Dose: 20 mg Quetiapine Fumarate (Quetiapine Fumarate 50 Mg Tablet) 150 mg PO DAILY [facility] Last Admin: 02/16/25 09:16 Dose: 150 mg Quetiapine Fumarate (Quetiapine Fumarate 100 Mg Tablet) 500 mg PO BEDTIME [facility] Last Admin: 02/15/25 21:56 Dose: 500 mg Sertraline HCl (Sertraline Hcl 50 Mg Tablet) 150 mg PO DAILY [facility] Last Admin: 02/16/25 09:16 Dose: 150 mg Valproic Acid (Valproic Acid Liquid 250 Mg/5 Ml Solution) 500 mg PO BID [facility] Last Admin: 02/16/25 09:15 Dose: 500 mg Allergies Allergies Allergy/AdvReac Type Severity Reaction Status Date / Time haloperidol [From HALDOL] Allergy Intermediate LOWERS Verified 01/24/25 15:43 HEART RATE trazodone AdvReac Intermediate Hives Verified 01/24/25 15:43 Assessment & Plan Assessment & Plan (1) Schizoaffective disorder: Qualifiers: Schizoaffective disorder type: unspecified Qualified Code(s): F25.9 - Schizoaffective disorder, unspecified Status: Acute Code(s): F25.9 - Schizoaffective disorder, unspecified (2) Chronic post-traumatic stress disorder (PTSD): Status: Acute Code(s): F43.12 - Post-traumatic stress disorder, chronic (3) Polysubstance use disorder: Status: Acute Code(s): F19.90 - Other psychoactive substance use, unspecified, uncomplicated Plan 59-year-old female with history of polysubstance use disorder, hypothyroidism, schizoaffective disorder bipolar type, borderline personality disorder admitted to adult Psychiatry with consult placed hospitalist service due to left hand edema with question of cellulitis. #Swelling L hand/wrist -xray L hand/wrist ordered -appearance more consistent with a contusion however no injury -this is not consistent with cellulitis -Given prior history of joint swelling/redness and current symptoms present in the R wrist as well, raises concern for autoimmune condition such as rheumatoid arthritis or less likely gout -Check cbc, crp, esr, SEAN, rheumatoid factor, uric acid -for now recommend NSAIDs and ice pack Hospital course: 02/09 decrease Depakote to 750 mg b.i.d. 02/11 No change in presentation.? Pleasant on approach.? Singing in the halls.? Complains of some arthritic right shoulder pain but otherwise no complaints.? Last night patient he would get angry at a peer during a verbal altercation and punched the pexy glass of the kitchen; patient redirectable 02/12 pt denies any HI and is upset that anyone ever said she had any HI toward anyone; keeps asking who said she had HI and cannot accept it was her 02/13 Decrease Depakote to 500 mg bid CBCD, BMP on 02/14. 02/15 Continue current regime/plan 02/16 Decrease Klonopin to 1 mg bid Decrease HS Seroquel to 300 mg K+ level in a.m. Reason for continued inpatient stay Substantial Risk for: rapid decompensation Time Spent With Patient Time: Total time managing care of this patient today ____ minutes.
[2025-02-16 20:52] VITALS: BP 133/84; PULSE 97; RESP 20; TEMP 36.5; O2SAT 96
[2025-02-16] MEDS: QUEtiapine Fumarate 300 MG TABLET PO (20:56)
[2025-02-17] MEDS: Omeprazole 20 MG CAPSULE.DR PO ×2 (07:22→16:34)
[2025-02-17] MEDS: Levothyroxine Sodium 50 MCG TABLET PO (07:22)
[2025-02-17 07:48] VITALS: BP 142/75; PULSE 84; RESP 18; TEMP 36.3; O2SAT 94
[2025-02-17] MEDS: clonazePAM 1 MG TABLET PO ×2 (08:07→20:35)
[2025-02-17] MEDS: Valproic Acid Liquid 250 MG/5 ML SOLUTION 500 MG PO ×2 (08:07→20:33)
[2025-02-17] MEDS: Acetaminophen 325 MG TABLET 975 MG PO ×2 (08:07→20:34)
[2025-02-17] MEDS: QUEtiapine Fumarate 50 MG TABLET 150 MG PO (08:07)
[2025-02-17] MEDS: Benztropine Mesylate 0.5 MG TABLET PO ×2 (08:08→20:35)
[2025-02-17] MEDS: Sertraline HCL 50 MG TABLET 150 MG PO (08:08)
[2025-02-17] MEDS: Multivitamin TABLET 1 TAB PO (08:08)
--- NOTE | 2025-02-17 10:12 | HO.PSYCHPN ---
Subjective Subjective Date of Service: 02/17/25 Reason For Visit: depressed Subjective Notes: Conditional Voluntary Healthcare Proxy: No Guardianship: No Medical Problems Affecting Mental Status: No Interim History: Pt talking about discharge. She reports housing options with family in [place], options found by her children on [facility], and her daughter, Lucretia Saunders [phone] reports pt can stay at her home. [facility] will have a decision regarding services next week. Pt reports she is feeling well-no sx of mood/behavioral dyscontrol with decrease in medications. Labs due 02/21 to assess response to Depakote decrease. Will plan discharge for early next week. She is in agreement. Medication Compliance: Yes Side effects from medications: No Attending Groups: Intermittent Review of Systems Acute medical concerns: No Medical Review of Systems: unchanged Review of Systems Review of Systems Denies Mental Status Exam Mental Status Exam Patient Appearance: Appropriate Patient Orientation: Person, Place, Time and Situation Level of Consciousness: Alert Patient Behavior: Talkative and Good Eye Contact Mood Description: Flat Affect Description: Flat Patient Cognition Impaired: No Ability to Follow Directions: Good Speech Pattern: Spontaneous Speech Memory Description: Episodic Impaired Hallucinations: None Delusions: Not Present Thought Process: Distracted Thought Content: positive for Circumstantial Depressive Symptoms: Increased Anxiety Judgement: Fair Diagnostics Vital Signs (24Hr): Vital Signs - 24 hr 02/16/25 20:52 02/17/25 07:48 Temperature 97.7 F 97.4 F Pulse Rate 97 84 Respiratory Rate 20 18 Blood Pressure 133/84 142/75 H Pulse Oximetry 96 94 Oxygen Delivery Method Room Air Room Air BMI result Body Mass Index 30.0 Labs 02/14/25 09:42 02/14/25 09:42 Imaging Radiology Impressions: ITS Impressions Shoulder X-Ray 02/03/25 15:38 IMPRESSION: 1. No fracture or dislocation. 2. Moderate to severe calcific tendinopathy of the supraspinatus tendon. This has mildly improved when compared with 05/09/2024. Electronically signed by: Ji Nunes MD 02/03/2025 03:56 PM EDT Hand/Wrist X-Ray 02/07/25 16:58 IMPRESSION: Unremarkable examination of the left hand and wrist. Electronically signed by: Coleman Melo MD 02/08/2025 07:14 AM EDT RP Duplex Scan Lower Extremity Artery 02/14/25 16:45 IMPRESSION: Mild inflow disease in the left peroneal and anterior tibialis arteries. No occlusion. Electronically signed by: Abraham Capellan MD 02/15/2025 08:21 AM EDT RP Medications Medications Current Medications Acetaminophen (Acetaminophen 325 Mg Tablet) 975 mg PO BID [facility] Last Admin: 02/17/25 08:07 Dose: 975 mg Al Hydroxide/Mg Hydroxide (Magnesium Hydrox/Alum Hydrox 30 Ml Oral.Susp) 30 ml PO Q6H PRN PRN Reason: Heartburn/Nausea Last Admin: 02/13/25 18:52 Dose: 30 ml Benztropine Mesylate (Benztropine Mesylate 0.5 Mg Tablet) 0.5 mg PO BID [facility] Last Admin: 02/17/25 08:08 Dose: 0.5 mg Clonazepam (Clonazepam 1 Mg Tablet) 1 mg PO BID [facility] Last Admin: 02/17/25 08:07 Dose: 1 mg Diphenhydramine HCl (Diphenhydramine Hcl 25 Mg Capsule) 50 mg PO BEDTIME PRN PRN Reason: Sleep Ibuprofen (Ibuprofen 800 Mg Tablet) 800 mg PO DAILY PRN PRN Reason: Pain, Severe (Pain Scale 7-10) Last Admin: 02/16/25 12:00 Dose: 800 mg Levothyroxine Sodium (Levothyroxine Sodium 50 Mcg Tablet) 50 mcg PO DAILY@0600 [facility] Last Admin: 02/17/25 07:22 Dose: 50 mcg Lidocaine (Lidocaine 4 % Patch Adh..Patch) 1 patch TRANSDERMA DAILY [facility]; Protocol Last Admin: 02/17/25 08:11 Dose: Not Given Magnesium Hydroxide (Milk Of Magnesia 30 Ml Oral.Susp) 30 ml PO DAILY PRN PRN Reason: Constipation Multi-Ingred Cream/Lotion/Oil/Oint (Mineral Oil/Petrolatum,White 106 Gm Tube) 1 appl TOPICAL TID [facility]; Protocol Last Admin: 02/17/25 08:11 Dose: Not Given Multivitamins/Vitamin C (Multivitamin Tablet) 1 tab PO DAILY [facility] Last Admin: 02/17/25 08:08 Dose: 1 tab Olanzapine (Olanzapine 5 Mg Tablet) 5 mg PO TID PRN PRN Reason: agitation Last Admin: 02/14/25 20:12 Dose: 5 mg Omeprazole (Omeprazole 20 Mg Capsule.Dr) 20 mg PO BID@0630,1630 [facility] Last Admin: 02/17/25 07:22 Dose: 20 mg Quetiapine Fumarate (Quetiapine Fumarate 50 Mg Tablet) 150 mg PO DAILY [facility] Last Admin: 02/17/25 08:07 Dose: 150 mg Quetiapine Fumarate (Quetiapine Fumarate 300 Mg Tablet) 300 mg PO BEDTIME [facility] Last Admin: 02/16/25 20:56 Dose: 300 mg Sertraline HCl (Sertraline Hcl 50 Mg Tablet) 150 mg PO DAILY [facility] Last Admin: 02/17/25 08:08 Dose: 150 mg Valproic Acid (Valproic Acid Liquid 250 Mg/5 Ml Solution) 500 mg PO BID [facility] Last Admin: 02/17/25 08:07 Dose: 500 mg Allergies Allergies Allergy/AdvReac Type Severity Reaction Status Date / Time haloperidol [From HALDOL] Allergy Intermediate LOWERS Verified 01/24/25 15:43 HEART RATE trazodone AdvReac Intermediate Hives Verified 01/24/25 15:43 Assessment & Plan Assessment & Plan (1) Schizoaffective disorder: Qualifiers: Schizoaffective disorder type: unspecified Qualified Code(s): F25.9 - Schizoaffective disorder, unspecified Status: Acute Code(s): F25.9 - Schizoaffective disorder, unspecified (2) Chronic post-traumatic stress disorder (PTSD): Status: Acute Code(s): F43.12 - Post-traumatic stress disorder, chronic (3) Polysubstance use disorder: Status: Acute Code(s): F19.90 - Other psychoactive substance use, unspecified, uncomplicated Plan 59-year-old female with history of polysubstance use disorder, hypothyroidism, schizoaffective disorder bipolar type, borderline personality disorder admitted to adult Psychiatry with consult placed hospitalist service due to left hand edema with question of cellulitis. #Swelling L hand/wrist -xray L hand/wrist ordered -appearance more consistent with a contusion however no injury -this is not consistent with cellulitis -Given prior history of joint swelling/redness and current symptoms present in the R wrist as well, raises concern for autoimmune condition such as rheumatoid arthritis or less likely gout -Check cbc, crp, esr, SEAN, rheumatoid factor, uric acid -for now recommend NSAIDs and ice pack Hospital course: 02/09 decrease Depakote to 750 mg b.i.d. 02/11 No change in presentation.? Pleasant on approach.? Singing in the halls.? Complains of some arthritic right shoulder pain but otherwise no complaints.? Last night patient he would get angry at a peer during a verbal altercation and punched the pexy glass of the kitchen; patient redirectable 02/12 pt denies any HI and is u upset that anyone ever said she had any HI toward anyone; keeps asking who said she had HI and cannot accept it was her 02/13 Decrease Depakote to 500 mg bid CBCD, BMP on 02/14. 02/15 Continue current regime/plan 02/16 Decrease Klonopin to 1 mg bid Decrease HS Seroquel to 300 mg K+ level in a.m. 02/17 K+ not drawn today. Repeat 02/18 Continue tx Reason for continued inpatient stay Substantial Risk for: rapid decompensation Time Spent With Patient Time: Total time managing care of this patient today ____ minutes.
[2025-02-17] MEDS: Loratadine 10 MG TABLET PO (18:20)
[2025-02-17 20:00] VITALS: BP 116/56; PULSE 76; TEMP 36.7; O2SAT 96
[2025-02-17] MEDS: QUEtiapine Fumarate 300 MG TABLET PO (20:35)
[2025-02-17] MEDS: Mineral Oil/Petrolatum,White 106 GM Tube 1 APPL TOPICAL (20:38)
[2025-02-18] MEDS: Omeprazole 20 MG CAPSULE.DR PO ×2 (06:09→16:11)
[2025-02-18] MEDS: Levothyroxine Sodium 50 MCG TABLET PO (06:09)
[2025-02-18 07:59] VITALS: BP 123/71; PULSE 83; RESP 18; TEMP 37.1; O2SAT 94
[2025-02-18] MEDS: Acetaminophen 325 MG TABLET 975 MG PO ×2 (08:23→20:47)
[2025-02-18] MEDS: Valproic Acid Liquid 250 MG/5 ML SOLUTION 500 MG PO ×2 (08:23→20:47)
[2025-02-18] MEDS: Benztropine Mesylate 0.5 MG TABLET PO ×2 (08:24→20:47)
[2025-02-18] MEDS: Multivitamin TABLET 1 TAB PO (08:25)
[2025-02-18] MEDS: Loratadine 10 MG TABLET PO (08:25)
[2025-02-18] MEDS: QUEtiapine Fumarate 50 MG TABLET 150 MG PO (08:25)
[2025-02-18] MEDS: Sertraline HCL 50 MG TABLET 150 MG PO (08:26)
[2025-02-18] MEDS: Lidocaine 4 % Patch ADH..PATCH 1 PATCH TRANSDERMA (08:26)
[2025-02-18] MEDS: clonazePAM 1 MG TABLET PO ×2 (08:26→20:47)
[2025-02-18] MEDS: Mineral Oil/Petrolatum,White 106 GM Tube 1 APPL TOPICAL (08:30)
--- NOTE | 2025-02-18 08:38 | P.PNPSI_ITS ---
Subjective Subjective Date of Service: 02/18/25 Reason For Visit: depressed Subjective Notes: Conditional Voluntary Healthcare Proxy: No Guardianship: No Medical Problems Affecting Mental Status: No Interim History: 59 yo HF doing much better than prior admits where she required mulitple restraints of medication- is off sec 7 and on CV , seems guarded- Medication Compliance: Yes Side effects from medications: Yes (? dec appetite- ) Attending Groups: Intermittent Review of Systems Acute medical concerns: Yes lowered cbc from depakote so depakote has been decreased Medical Review of Systems: unchanged Mental Status Exam Mental Status Exam Patient Appearance: Well Grooomed and Appropriate Patient Orientation: Person, Place and Situation Level of Consciousness: Awake Patient Behavior: Guarded Mood Description: Constricted Affect Description: Blunted Patient Cognition Impaired: No Ability to Follow Directions: Fair Speech Pattern: Impoverished and Poor Articulation Hallucinations: None Delusions: Paranoid Ideation Thought Process: Intact Thought Content: positive for Intact, positive for [place] and positive for Poverty of Content Depressive Symptoms: Difficulty Concentrating Abnormal Motor Activity Signs and Symptoms: Restlessness Judgement: Fair Diagnostics Vital Signs (24Hr): Vital Signs - 24 hr 02/17/25 20:00 02/18/25 07:59 Temperature 98.1 F 98.7 F Pulse Rate 76 83 Respiratory Rate 18 Blood Pressure 116/56 L 123/71 Pulse Oximetry 96 94 Oxygen Delivery Method Room Air Room Air BMI result Body Mass Index 30.0 Labs 02/14/25 09:42 02/14/25 09:42 Imaging Radiology Impressions: ITS Impressions Shoulder X-Ray 02/03/25 15:38 IMPRESSION: 1. No fracture or dislocation. 2. Moderate to severe calcific tendinopathy of the supraspinatus tendon. This has mildly improved when compared with 05/09/2024. Electronically signed by: Ji Nunes MD 02/03/2025 03:56 PM EDT RP Hand/Wrist X-Ray 02/07/25 16:58 IMPRESSION: Unremarkable examination of the left hand and wrist. Electronically signed by: Coleman Melo MD 02/08/2025 07:14 AM EDT RP Duplex Scan Lower Extremity Artery 02/14/25 16:45 IMPRESSION: Mild inflow disease in the left peroneal and anterior tibialis arteries. No occlusion. Electronically signed by: Abraham Capellan MD 02/15/2025 08:21 AM EDT Medications Medications Current Medications Acetaminophen (Acetaminophen 325 Mg Tablet) 975 mg PO BID [facility] Last Admin: 02/18/25 08:23 Dose: 975 mg Al Hydroxide/Mg Hydroxide (Magnesium Hydrox/Alum Hydrox 30 Ml Oral.Susp) 30 ml PO Q6H PRN PRN Reason: Heartburn/Nausea Last Admin: 02/13/25 18:52 Dose: 30 ml Benztropine Mesylate (Benztropine Mesylate 0.5 Mg Tablet) 0.5 mg PO BID [facility] Last Admin: 02/18/25 08:24 Dose: 0.5 mg Clonazepam (Clonazepam 1 Mg Tablet) 1 mg PO BID [facility] Last Admin: 02/18/25 08:26 Dose: 1 mg Diphenhydramine HCl (Diphenhydramine Hcl 25 Mg Capsule) 50 mg PO BEDTIME PRN PRN Reason: Sleep Ibuprofen (Ibuprofen 800 Mg Tablet) 800 mg PO DAILY PRN PRN Reason: Pain, Severe (Pain Scale 7-10) Last Admin: 02/16/25 12:00 Dose: 800 mg Levothyroxine Sodium (Levothyroxine Sodium 50 Mcg Tablet) 50 mcg PO DAILY@0600 [facility] Last Admin: 02/18/25 06:09 Dose: 50 mcg Lidocaine (Lidocaine 4 % Patch Adh..Patch) 1 patch TRANSDERMA DAILY [facility]; Protocol Last Admin: 02/18/25 08:26 Dose: 1 patch Loratadine (Loratadine 10 Mg Tablet) 10 mg PO DAILY [facility] Last Admin: 02/18/25 08:25 Dose: 10 mg Magnesium Hydroxide (Milk Of Magnesia 30 Ml Oral.Susp) 30 ml PO DAILY PRN PRN Reason: Constipation Multi-Ingred Cream/Lotion/Oil/Oint (Mineral Oil/Petrolatum,White 106 Gm Tube) 1 appl TOPICAL TID [facility]; Protocol Last Admin: 02/18/25 08:30 Dose: 1 appl Multivitamins/Vitamin C (Multivitamin Tablet) 1 tab PO DAILY [facility] Last Admin: 02/18/25 08:25 Dose: 1 tab Olanzapine (Olanzapine 5 Mg Tablet) 5 mg PO TID PRN PRN Reason: agitation Last Admin: 02/14/25 20:12 Dose: 5 mg Omeprazole (Omeprazole 20 Mg Capsule.) 20 mg PO BID@0630,1630 [facility] Last Admin: 02/18/25 06:09 Dose: 20 mg Quetiapine Fumarate (Quetiapine Fumarate 50 Mg Tablet) 150 mg PO DAILY [facility] Last Admin: 02/18/25 08:25 Dose: 150 mg Quetiapine Fumarate (Quetiapine Fumarate 300 Mg Tablet) 300 mg PO BEDTIME [facility] Last Admin: 02/17/25 20:35 Dose: 300 mg Sertraline HCl (Sertraline Hcl 50 Mg Tablet) 150 mg PO DAILY [facility] Last Admin: 02/18/25 08:26 Dose: 150 mg Valproic Acid (Valproic Acid Liquid 250 Mg/5 Ml Solution) 500 mg PO BID [facility] Last Admin: 02/18/25 08:23 Dose: 500 mg Allergies Allergies Allergy/AdvReac Type Severity Reaction Status Date / Time haloperidol [From HALDOL] Allergy Intermediate LOWERS Verified 01/24/25 15:43 HEART RATE trazodone AdvReac Intermediate Hives Verified 01/24/25 15:43 Assessment & Plan Assessment & Plan (1) Schizoaffective disorder: Qualifiers: Schizoaffective disorder type: unspecified Qualified Code(s): F25.9 - Schizoaffective disorder, unspecified Status: Acute Code(s): F25.9 - Schizoaffective disorder, unspecified (2) Chronic post-traumatic stress disorder (PTSD): Status: Acute Code(s): F43.12 - Post-traumatic stress disorder, chronic (3) Polysubstance use disorder: Status: Acute Code(s): F19.90 - Other psychoactive substance use, unspecified, uncomplicated Plan 59-year-old female with history of polysubstance use disorder, hypothyroidism, schizoaffective disorder bipolar type, borderline personality disorder admitted to adult Psychiatry with consult placed hospitalist service due to left hand edema with question of cellulitis. #Swelling L hand/wrist -xray L hand/wrist ordered -appearance more consistent with a contusion however no injury -this is not consistent with cellulitis -Given prior history of joint swelling/redness and current symptoms present in the R wrist as well, raises concern for autoimmune condition such as rheumatoid arthritis or less likely gout -Check cbc, crp, esr, SEAN, rheumatoid factor, uric acid -for now recommend NSAIDs and ice pack Hospital course: 02/09 decrease Depakote to 750 mg b.i.d. 02/11 No change in presentation.? Pleasant on approach.? Singing in the halls.? Complains of some arthritic right shoulder pain but otherwise no complaints.? Last night patient he would get angry at a peer during a verbal altercation and punched the pexy glass of the kitchen; patient redirectable 02/12 pt denies any HI and is u upset that anyone ever said she had any HI toward anyone; keeps asking who said she had HI and cannot accept it was her 02/13 Decrease Depakote to 500 mg bid CBCD, BMP on 02/14. 02/15 Continue current regime/plan 02/16 Decrease Klonopin to 1 mg bid Decrease HS Seroquel to 300 mg K+ level in a.m. 02/17 K+ not drawn today. Repeat 02/18 Continue tx 02/18 pt requesting increase seroquel reviewed with Mariah Dhaliwal who oked- pt didn't agree to blood test yesterday but will draw electrolytes stat tonight given hx of low sodium and high k+ Patient educated on: medication risk/benefits and other Informed Consent: further education needed Reason for continued inpatient stay Substantial Risk for: inability to function, rapid decompensation and med/psych decompensation Time Spent With Patient Time: Total time managing care of this patient today ____ minutes.
[2025-02-18] MEDS: Magnesium Hydrox/Alum Hydrox 30 ML ORAL.SUSP PO (18:07)
[2025-02-18] MEDS: Ibuprofen 800 MG TABLET PO (18:07)
[2025-02-18 18:23] LABS: MANUAL DIFF FLAG NO
[2025-02-18 18:25] LABS: Basophils Percent Auto 0.4 % (0-2); Eosinophils Absolute Auto 0.1 X10*3/uL (0.0-0.4); Eosinophils Percent Auto 1.9 % (0-4); Hematocrit 37.7 % (37.0-47.0); Hemoglobin 12.1 g/dl (12.0-16.0); Imm Gran Abs Auto 0.06 X10*3/uL (0.00-0.03); Imm Gran Pct Auto 1.3 % (0.0-0.4); Lymphocytes Absolute Auto 2.2 X10*3/uL (1.2-4.9); Lymphocytes Percent Auto 45.3 % (20-40); Mean Corpuscular HGB Conc 32.1 g/dl (31.0-35.0); Mean Corpuscular Hemoglobin 29.9 pg (27.0-33.0); Mean Corpuscular Volume 93.1 fL (80.0-98.0); Mean Platelet Volume 9.3 fL (9.4-12.3); Monocytes Absolute Auto 0.9 X10*3/uL (0.1-1.2); Monocytes Percent Auto 19.4 % (2-11); Neutrophils Absolute Auto 1.5 x10*3/uL (2.0-8.3); Neutrophils Percent Auto 31.7 % (45-73); Platelet Count 159 X10*3/uL (160-400); Red Blood Count 4.05 X10*6/uL (4.20-5.50); Red Cell Distribution Width 14.6 % (11.0-16.0); White Blood Count 4.8 X10*3/uL (4.8-10.8)
[2025-02-18 18:40] LABS: Potassium 5.1 mmol/L (3.3-5.1)
[2025-02-18 18:42] LABS: Anion Gap 12 (12-20); Carbon Dioxide 29 mmol/L (22-29); Chloride 103 mmol/L (96-108); Potassium 5.3 mmol/L (3.3-5.1); Sodium 139 mmol/L (135-145)
[2025-02-18] MEDS: Sodium Zirconium Cyclosilicate 10 GM POWD.PACK PO (19:57)
[2025-02-18 20:30] VITALS: BP 138/64; PULSE 81; RESP 16; TEMP 36.3; O2SAT 95
[2025-02-18] MEDS: QUEtiapine Fumarate 400 MG TABLET PO (20:47)
[2025-02-19] MEDS: Levothyroxine Sodium 50 MCG TABLET PO (07:03)
[2025-02-19] MEDS: Omeprazole 20 MG CAPSULE.DR PO ×2 (07:03→16:21)
[2025-02-19 08:00] VITALS: BP 133/68; PULSE 79; RESP 18; TEMP 36.9; O2SAT 95
[2025-02-19] MEDS: Benztropine Mesylate 0.5 MG TABLET PO ×2 (08:36→20:40)
[2025-02-19] MEDS: Acetaminophen 325 MG TABLET 975 MG PO ×2 (08:37→20:39)
[2025-02-19] MEDS: Valproic Acid Liquid 250 MG/5 ML SOLUTION 500 MG PO ×2 (08:37→20:39)
[2025-02-19] MEDS: QUEtiapine Fumarate 50 MG TABLET 150 MG PO (08:38)
[2025-02-19] MEDS: Sertraline HCL 50 MG TABLET 150 MG PO (08:39)
[2025-02-19] MEDS: Ibuprofen 800 MG TABLET PO (08:39)
[2025-02-19] MEDS: Loratadine 10 MG TABLET PO (08:39)
[2025-02-19] MEDS: Multivitamin TABLET 1 TAB PO (08:40)
[2025-02-19] MEDS: Mineral Oil/Petrolatum,White 106 GM Tube 1 APPL TOPICAL ×2 (08:40→20:40)
[2025-02-19] MEDS: clonazePAM 1 MG TABLET PO ×2 (08:40→20:40)
[2025-02-19] MEDS: Lidocaine 4 % Patch ADH..PATCH 1 PATCH TRANSDERMA (08:41)
--- NOTE | 2025-02-19 10:43 | P.PNPSI_ITS ---
Subjective Subjective Date of Service: 02/19/25 Reason For Visit: depressed Subjective Notes: Conditional Voluntary Healthcare Proxy: No Guardianship: No Medical Problems Affecting Mental Status: No Interim History: 59 with recent slight hyperkalemia rechecked still high gave medication recommended by hospitalist- and will repeat lab for potassium tomorrow- Pt reports better with inc seroquel from 300mg qhs to 400mg qhs last pm Medication Compliance: Yes Side effects from medications: No Attending Groups: No Review of Systems following potassium mild elevation Medical Review of Systems: unchanged Mental Status Exam Mental Status Exam Narrative: lying in bed today- Patient Appearance: Appropriate Patient Orientation: Person and Place Level of Consciousness: Awake Patient Behavior: Appropriate, Cooperative and Good Eye Contact Mood Description: Calm Affect Description: Blunted Patient Cognition Impaired: No Ability to Follow Directions: Fair Speech Pattern: Impoverished Thought Process: Intact and Goal Oriented Thought Content: positive for [place] and positive for [place] of Content Judgement: Fair Diagnostics Vital Signs (24Hr): Vital Signs - 24 hr 02/18/25 20:30 02/19/25 08:00 Temperature 97.3 F 98.4 F Pulse Rate 81 79 Respiratory Rate 16 18 Blood Pressure 138/64 133/68 Pulse Oximetry 95 95 Oxygen Delivery Method Room Air Room Air BMI result Body Mass Index 30.0 Labs 02/18/25 18:20 02/18/25 18:20 Labs: Laboratory Results - last 48 hr 02/18/25 02/18/25 18:20 18:20 WBC 4.8 RBC 4.05 L Hgb 12.1 Hct 37.7 MCV 93.1 MCH 29.9 MCHC 32.1 RDW 14.6 Plt Count 159 L MPV 9.3 L Immature Gran % (Auto) 1.3 H Neut % (Auto) 31.7 L Lymph % (Auto) 45.3 H [place] % (Auto) 19.4 H Eos % (Auto) 1.9 Baso % (Auto) 0.4 Lymph # (Auto) 2.2 [place] # (Auto) 0.9 Eos # (Auto) 0.1 Baso # (Auto) 0.0 Abs Immat Gran (auto) 0.06 H Absolute Neuts (auto) 1.5 L Absolute Nucleated RBC 0.000 Nucleated RBC % (auto) 0.0 Sodium 139 Potassium 5.1 5.3 H Chloride 103 Carbon Dioxide 29 Anion Gap 12 Imaging Radiology Impressions: ITS Impressions Shoulder X-Ray 02/03/25 15:38 IMPRESSION: 1. No fracture or dislocation. 2. Moderate to severe calcific tendinopathy of the supraspinatus tendon. This has mildly improved when compared with 05/09/2024. Electronically signed by: Ji Nunes MD 02/03/2025 03:56 PM EDT RP Hand/Wrist X-Ray 02/07/25 16:58 IMPRESSION: Unremarkable examination of the left hand and wrist. Electronically signed by: Coleman Melo MD 02/08/2025 07:14 AM EDT RP Duplex Scan Lower Extremity Artery 02/14/25 16:45 IMPRESSION: Mild inflow disease in the left peroneal and anterior tibialis arteries. No occlusion. Electronically signed by: Abraham Capellan MD 02/15/2025 08:21 AM EDT RP Medications Medications Current Medications Acetaminophen (Acetaminophen 325 Mg Tablet) 975 mg PO BID [facility] Last Admin: 02/19/25 08:37 Dose: 975 mg Al Hydroxide/Mg Hydroxide (Magnesium Hydrox/Alum Hydrox 30 Ml Oral.Susp) 30 ml PO Q6H PRN PRN Reason: Heartburn/Nausea Last Admin: 02/18/25 18:07 Dose: 30 ml Benztropine Mesylate (Benztropine Mesylate 0.5 Mg Tablet) 0.5 mg PO BID [facility] Last Admin: 02/19/25 08:36 Dose: 0.5 mg Clonazepam (Clonazepam 1 Mg Tablet) 1 mg PO BID [facility] Last Admin: 02/19/25 08:40 Dose: 1 mg Diphenhydramine HCl (Diphenhydramine Hcl 25 Mg Capsule) 50 mg PO BEDTIME PRN PRN Reason: Sleep Ibuprofen (Ibuprofen 800 Mg Tablet) 800 mg PO DAILY PRN PRN Reason: Pain, Severe (Pain Scale 7-10) Last Admin: 02/19/25 08:39 Dose: 800 mg Levothyroxine Sodium (Levothyroxine Sodium 50 Mcg Tablet) 50 mcg PO DAILY@0600 [facility] Last Admin: 02/19/25 07:03 Dose: 50 mcg Lidocaine (Lidocaine 4 % Patch Adh..Patch) 1 patch TRANSDERMA DAILY [facility]; Protocol Last Admin: 02/19/25 08:41 Dose: 1 patch Loratadine (Loratadine 10 Mg Tablet) 10 mg PO DAILY [facility] Last Admin: 02/19/25 08:39 Dose: 10 mg Magnesium Hydroxide (Milk Of Magnesia 30 Ml Oral.Susp) 30 ml PO DAILY PRN PRN Reason: Constipation Multi-Ingred Cream/Lotion/Oil/Oint (Mineral Oil/Petrolatum,White 106 Gm Tube) 1 appl TOPICAL TID [facility]; Protocol Last Admin: 02/19/25 08:40 Dose: 1 appl Multivitamins/Vitamin C (Multivitamin Tablet) 1 tab PO DAILY [facility] Last Admin: 02/19/25 08:40 Dose: 1 tab Olanzapine (Olanzapine 5 Mg Tablet) 5 mg PO TID PRN PRN Reason: agitation Last Admin: 02/14/25 20:12 Dose: 5 mg Omeprazole (Omeprazole 20 Mg Capsule.Dr) 20 mg PO BID@0630,1630 [facility] Last Admin: 02/19/25 07:03 Dose: 20 mg Quetiapine Fumarate (Quetiapine Fumarate 50 Mg Tablet) 150 mg PO DAILY [facility] Last Admin: 02/19/25 08:38 Dose: 150 mg Quetiapine Fumarate (Quetiapine Fumarate 400 Mg Tablet) 400 mg PO BEDTIME [facility] Last Admin: 02/18/25 20:47 Dose: 400 mg Sertraline HCl (Sertraline Hcl 50 Mg Tablet) 150 mg PO DAILY [facility] Last Admin: 02/19/25 08:39 Dose: 150 mg Valproic Acid (Valproic Acid Liquid 250 Mg/5 Ml Solution) 500 mg PO BID [facility] Last Admin: 02/19/25 08:37 Dose: 500 mg Allergies Allergies Allergy/AdvReac Type Severity Reaction Status Date / Time haloperidol [From HALDOL] Allergy Intermediate LOWERS Verified 01/24/25 15:43 HEART RATE trazodone AdvReac Intermediate Hives Verified 01/24/25 15:43 Assessment & Plan Assessment & Plan (1) Schizoaffective disorder: Qualifiers: Schizoaffective disorder type: unspecified Qualified Code(s): F25.9 - Schizoaffective disorder, unspecified Status: Acute Code(s): F25.9 - Schizoaffective disorder, unspecified (2) Chronic post-traumatic stress disorder (PTSD): Status: Acute Code(s): F43.12 - Post-traumatic stress disorder, chronic (3) Polysubstance use disorder: Status: Acute Code(s): F19.90 - Other psychoactive substance use, unspecified, uncomplicated Plan 59-year-old female with history of polysubstance use disorder, hypothyroidism, schizoaffective disorder bipolar type, borderline personality disorder admitted to adult Psychiatry with consult placed hospitalist service due to left hand edema with question of cellulitis. #Swelling L hand/wrist -xray L hand/wrist ordered -appearance more consistent with a contusion however no injury -this is not consistent with cellulitis -Given prior history of joint swelling/redness and current symptoms present in the R wrist as well, raises concern for autoimmune condition such as rheumatoid arthritis or less likely gout -Check cbc, crp, esr, SEAN, rheumatoid factor, uric acid -for now recommend NSAIDs and ice pack Hospital course: 02/09 decrease Depakote to 750 mg b.i.d. 02/11 No change in presentation.? Pleasant on approach.? Singing in the halls.? Complains of some arthritic right shoulder pain but otherwise no complaints.? Last night patient he would get angry at a peer during a verbal altercation and punched the pexy glass of the kitchen; patient redirectable 02/12 pt denies any HI and is u upset that anyone ever said she had any HI toward anyone; keeps asking who said she had HI and cannot accept it was her 02/13 Decrease Depakote to 500 mg bid CBCD, BMP on 02/14. 02/15 Continue current regime/plan 02/16 Decrease Klonopin to 1 mg bid Decrease HS Seroquel to 300 mg K+ level in a.m. 02/17 K+ not drawn today. Repeat 02/18 Continue tx 02/18 pt requesting increase seroquel reviewed with Mariah Dhaliwal who oked- pt didn't agree to blood test yesterday but will draw electrolytes stat tonight given hx of low sodium and high k+ 02/19 recheck k+ tomorrow, tolerating inc seroquel , blood counts recovering on lower depakote Patient educated on: other Informed Consent: understands Reason for continued inpatient stay Substantial Risk for: rapid decompensation and med/psych decompensation Time Spent With Patient Time: Total time managing care of this patient today ____ minutes.
[2025-02-19 20:00] VITALS: BP 158/81; PULSE 89; TEMP 36.4; O2SAT 94
[2025-02-19] MEDS: QUEtiapine Fumarate 400 MG TABLET PO (20:40)
[2025-02-20] MEDS: Omeprazole 20 MG CAPSULE.DR PO ×2 (06:28→17:27)
[2025-02-20] MEDS: Levothyroxine Sodium 50 MCG TABLET PO (06:28)
[2025-02-20 07:53] VITALS: BP 137/70; PULSE 79; RESP 20; TEMP 36.4; O2SAT 95
[2025-02-20] MEDS: Sertraline HCL 50 MG TABLET 150 MG PO (08:12)
[2025-02-20] MEDS: Mineral Oil/Petrolatum,White 106 GM Tube 1 APPL TOPICAL ×2 (08:12→15:03)
[2025-02-20] MEDS: Acetaminophen 325 MG TABLET 975 MG PO ×2 (08:13→21:01)
[2025-02-20 08:14] LABS: Potassium 5.3 mmol/L (3.3-5.1)
[2025-02-20] MEDS: Valproic Acid Liquid 250 MG/5 ML SOLUTION 500 MG PO ×2 (08:14→21:00)
[2025-02-20] MEDS: QUEtiapine Fumarate 50 MG TABLET 150 MG PO (08:14)
[2025-02-20] MEDS: clonazePAM 1 MG TABLET PO ×2 (08:14→21:01)
[2025-02-20] MEDS: Loratadine 10 MG TABLET PO (08:15)
[2025-02-20] MEDS: Multivitamin TABLET 1 TAB PO (08:15)
[2025-02-20] MEDS: Benztropine Mesylate 0.5 MG TABLET PO ×2 (08:15→21:01)
[2025-02-20] MEDS: Lidocaine 4 % Patch ADH..PATCH 1 PATCH TRANSDERMA (14:12)
[2025-02-20] MEDS: Ibuprofen 800 MG TABLET PO (14:14)
[2025-02-20] MEDS: Sodium Zirconium Cyclosilicate 10 GM POWD.PACK PO (15:01)
--- NOTE | 2025-02-20 17:22 | P.PNPSI_ITS ---
Subjective Subjective Date of Service: 02/20/25 Reason For Visit: depressed Subjective Notes: Conditional Voluntary Healthcare Proxy: No Guardianship: No Medical Problems Affecting Mental Status: No Interim History: Potassium remains high. Discussed with hospitalist. Sodium Zirconium 10 mg dose repeated. Will repeat K+ on 02/22. Met with pt and parts interpreter. Reports sleep to still be problematic. Seroquel returned to 500 mg HS. Pt did not discuss discharge in our meeting today. She spoke of feeling relief with compression stockings along with her sleep. Medication Compliance: Yes Side effects from medications: Yes (with seroquel decrease poor sleep, increase in delusional content) Attending Groups: Intermittent Review of Systems Hyperkalemia Medical Review of Systems: unchanged Review of Systems Review of Systems Denies today Mental Status Exam Mental Status Exam Patient Appearance: Fatigued and Appropriate Patient Orientation: Person, Place, Time and Situation Level of Consciousness: Alert Patient Behavior: Talkative and Good Eye Contact Mood Description: Constricted Affect Description: Constricted Patient Cognition Impaired: No Ability to Follow Directions: Good Speech Pattern: Spontaneous Speech Memory Description: Episodic Impaired Hallucinations: None Delusions: Not Present Thought Process: Distracted Thought Content: positive for [place] Judgement: Fair Diagnostics Vital Signs (24Hr): Vital Signs - 24 hr 02/19/25 20:00 02/20/25 07:53 Temperature 97.5 F 97.5 F Pulse Rate 89 79 Respiratory Rate 20 Blood Pressure 158/81 H 137/70 Pulse Oximetry 94 95 Oxygen Delivery Method Room Air Room Air BMI result Body Mass Index 30.0 Labs 02/18/25 18:20 02/20/25 07:36 Labs: Laboratory Results - last 48 hr 02/18/25 02/18/25 02/20/25 18:20 18:20 07:36 WBC 4.8 RBC 4.05 L Hgb 12.1 Hct 37.7 MCV 93.1 MCH 29.9 MCHC 32.1 RDW 14.6 Plt Count 159 L MPV 9.3 L Immature Gran % (Auto) 1.3 H Neut % (Auto) 31.7 L Lymph % (Auto) 45.3 H [place] % (Auto) 19.4 H Eos % (Auto) 1.9 Baso % (Auto) 0.4 Lymph # (Auto) 2.2 [place] # (Auto) 0.9 Eos # (Auto) 0.1 Baso # (Auto) 0.0 Abs Immat Gran (auto) 0.06 H Absolute Neuts (auto) 1.5 L Absolute Nucleated RBC 0.000 Nucleated RBC % (auto) 0.0 Sodium 139 Potassium 5.1 5.3 H 5.3 H Chloride 103 Carbon Dioxide 29 Anion Gap 12 Imaging Radiology Impressions: ITS Impressions Shoulder X-Ray 02/03/25 15:38 IMPRESSION: 1. No fracture or dislocation. 2. Moderate to severe calcific tendinopathy of the supraspinatus tendon. This has mildly improved when compared with 05/09/2024. Electronically signed by: Ji Nunes MD 02/03/2025 03:56 PM EDT RP Hand/Wrist X-Ray 02/07/25 16:58 IMPRESSION: Unremarkable examination of the left hand and wrist. Electronically signed by: Coleman Melo MD 02/08/2025 07:14 AM EDT RP Duplex Scan Lower Extremity Artery 02/14/25 16:45 IMPRESSION: Mild inflow disease in the left peroneal and anterior tibialis arteries. No occlusion. Electronically signed by: Abraham Capellan MD 02/15/2025 08:21 AM EDT RP Medications Medications Current Medications Acetaminophen (Acetaminophen 325 Mg Tablet) 975 mg PO BID [facility] Last Admin: 02/20/25 08:13 Dose: 975 mg Al Hydroxide/Mg Hydroxide (Magnesium Hydrox/Alum Hydrox 30 Ml Oral.Susp) 30 ml PO Q6H PRN PRN Reason: Heartburn/Nausea Last Admin: 02/18/25 18:07 Dose: 30 ml Benztropine Mesylate (Benztropine Mesylate 0.5 Mg Tablet) 0.5 mg PO BID [facility] Last Admin: 02/20/25 08:15 Dose: 0.5 mg Clonazepam (Clonazepam 1 Mg Tablet) 1 mg PO BID [facility] Last Admin: 02/20/25 08:14 Dose: 1 mg Diphenhydramine HCl (Diphenhydramine Hcl 25 Mg Capsule) 50 mg PO BEDTIME PRN PRN Reason: Sleep Ibuprofen (Ibuprofen 800 Mg Tablet) 800 mg PO DAILY PRN PRN Reason: Pain, Severe (Pain Scale 7-10) Last Admin: 02/20/25 14:14 Dose: 800 mg Levothyroxine Sodium (Levothyroxine Sodium 50 Mcg Tablet) 50 mcg PO DAILY@0600 [facility] Last Admin: 02/20/25 06:28 Dose: 50 mcg Lidocaine (Lidocaine 4 % Patch Adh..Patch) 1 patch TRANSDERMA DAILY [facility]; Protocol Last Admin: 02/20/25 14:12 Dose: 1 patch Loratadine (Loratadine 10 Mg Tablet) 10 mg PO DAILY [facility] Last Admin: 02/20/25 08:15 Dose: 10 mg Magnesium Hydroxide (Milk Of Magnesia 30 Ml Oral.Susp) 30 ml PO DAILY PRN PRN Reason: Constipation Multi-Ingred Cream/Lotion/Oil/Oint (Mineral Oil/Petrolatum,White 106 Gm Tube) 1 appl TOPICAL TID [facility]; Protocol Last Admin: 02/20/25 15:03 Dose: 1 appl Multivitamins/Vitamin C (Multivitamin Tablet) 1 tab PO DAILY [facility] Last Admin: 02/20/25 08:15 Dose: 1 tab Olanzapine (Olanzapine 5 Mg Tablet) 5 mg PO TID PRN PRN Reason: agitation Last Admin: 02/14/25 20:12 Dose: 5 mg Omeprazole (Omeprazole 20 Mg Capsule.Dr) 20 mg PO BID@0630,1630 [facility] Last Admin: 02/20/25 06:28 Dose: 20 mg Quetiapine Fumarate (Quetiapine Fumarate 50 Mg Tablet) 150 mg PO DAILY [facility] Last Admin: 02/20/25 08:14 Dose: 150 mg Quetiapine Fumarate (Quetiapine Fumarate 100 Mg Tablet) 500 mg PO BEDTIME [facility] Sertraline HCl (Sertraline Hcl 50 Mg Tablet) 150 mg PO DAILY [facility] Last Admin: 02/20/25 08:12 Dose: 150 mg Valproic Acid (Valproic Acid Liquid 250 Mg/5 Ml Solution) 500 mg PO BID [facility] Last Admin: 02/20/25 08:14 Dose: 500 mg Allergies Allergies Allergy/AdvReac Type Severity Reaction Status Date / Time haloperidol [From HALDOL] Allergy Intermediate LOWERS Verified 01/24/25 15:43 HEART RATE trazodone AdvReac Intermediate Hives Verified 01/24/25 15:43 Assessment & Plan Assessment & Plan (1) Schizoaffective disorder: Qualifiers: Schizoaffective disorder type: unspecified Qualified Code(s): F25.9 - Schizoaffective disorder, unspecified Status: Acute Code(s): F25.9 - Schizoaffective disorder, unspecified (2) Chronic post-traumatic stress disorder (PTSD): Status: Acute Code(s): F43.12 - Post-traumatic stress disorder, chronic (3) Polysubstance use disorder: Status: Acute Code(s): F19.90 - Other psychoactive substance use, unspecified, uncomplicated Plan 59-year-old female with history of polysubstance use disorder, hypothyroidism, schizoaffective disorder bipolar type, borderline personality disorder admitted to adult Psychiatry with consult placed hospitalist service due to left hand edema with question of cellulitis. #Swelling L hand/wrist -xray L hand/wrist ordered -appearance more consistent with a contusion however no injury -this is not consistent with cellulitis -Given prior history of joint swelling/redness and current symptoms present in the R wrist as well, raises concern for autoimmune condition such as rheumatoid arthritis or less likely gout -Check cbc, crp, esr, SEAN, rheumatoid factor, uric acid -for now recommend NSAIDs and ice pack Hospital course: 02/09 decrease Depakote to 750 mg b.i.d. 02/11 No change in presentation.? Pleasant on approach.? Singing in the halls.? Complains of some arthritic right shoulder pain but otherwise no complaints.? Last night patient he would get angry at a peer during a verbal altercation and punched the pexy glass of the kitchen; patient redirectable 02/12 pt denies any HI and is u upset that anyone ever said she had any HI toward anyone; keeps asking who said she had HI and cannot accept it was her 02/13 Decrease Depakote to 500 mg bid CBCD, BMP on 02/14. 02/15 Continue current regime/plan 02/16 Decrease Klonopin to 1 mg bid Decrease HS Seroquel to 300 mg K+ level in a.m. 02/17 K+ not drawn today. Repeat 02/18 Continue tx 02/18 pt requesting increase seroquel reviewed with Mariah Dhaliwal who oked- pt didn't agree to blood test yesterday but will draw electrolytes stat tonight given hx of low sodium and high k+ 02/19 recheck k+ tomorrow, tolerating inc seroquel , blood counts recovering on lower depakote 02/20 K+ continues high. Sodium Zirconium 10 mg x 1. Repeat K+ 02/22. Increase Seroquel to 500 mg HS Reason for continued inpatient stay Substantial Risk for: rapid decompensation Time Spent With Patient Time: Total time managing care of this patient today ____ minutes.
[2025-02-20 20:00] VITALS: BP 135/76; PULSE 89; RESP 18; TEMP 36.6; O2SAT 96
[2025-02-20] MEDS: QUEtiapine Fumarate 100 MG TABLET 500 MG PO (21:01)
[2025-02-21] MEDS: Omeprazole 20 MG CAPSULE.DR PO ×2 (06:46→16:20)
[2025-02-21] MEDS: Levothyroxine Sodium 50 MCG TABLET PO (06:46)
[2025-02-21 07:45] VITALS: BP 144/76; PULSE 81; RESP 18; TEMP 36.3; O2SAT 96
[2025-02-21] MEDS: Mineral Oil/Petrolatum,White 106 GM Tube 1 APPL TOPICAL (08:28)
[2025-02-21] MEDS: Valproic Acid Liquid 250 MG/5 ML SOLUTION 500 MG PO ×2 (08:31→20:08)
[2025-02-21] MEDS: QUEtiapine Fumarate 50 MG TABLET 150 MG PO (08:32)
[2025-02-21] MEDS: Acetaminophen 325 MG TABLET 975 MG PO ×2 (08:33→20:06)
[2025-02-21] MEDS: Multivitamin TABLET 1 TAB PO (08:34)
[2025-02-21] MEDS: clonazePAM 1 MG TABLET PO ×2 (08:34→20:07)
[2025-02-21] MEDS: Sertraline HCL 50 MG TABLET 150 MG PO (08:35)
[2025-02-21] MEDS: Loratadine 10 MG TABLET PO (08:35)
[2025-02-21] MEDS: Benztropine Mesylate 0.5 MG TABLET PO ×2 (08:35→20:07)
[2025-02-21] MEDS: Lidocaine 4 % Patch ADH..PATCH 1 PATCH TRANSDERMA (08:36)
--- NOTE | 2025-02-21 11:01 | HO.PSYCHPN ---
Subjective Subjective Date of Service: 02/21/25 Reason For Visit: depressed Subjective Notes: Conditional Voluntary Healthcare Proxy: No Guardianship: No Medical Problems Affecting Mental Status: No Interim History: K+ level scheduled for 02/22/25. Met with pt and [facility] [place] [employer]. Pt reports increase in sedation. Review of weekend sx. Discussed a decrease in a.m. Seroqeul by 50 mg. Pt talking about DC. She identified options as going to daughter Lucretia's home, moving to [place], [place] with a friend, moving to [place] with sister. These options will need further investigation which was discussed with pt. Denies SI,HI,AH,VH. No sx of acute psychosis or maddison. Medication Compliance: Yes Side effects from medications: Yes (sedation today) Attending Groups: Intermittent Review of Systems K+ evaluation Review of Systems Review of Systems Sedation today Mental Status Exam Mental Status Exam Patient Appearance: Fatigued and Appropriate Patient Orientation: Person, Place, Time and Situation Level of Consciousness: Alert Patient Behavior: Talkative and Good Eye Contact Mood Description: Constricted Affect Description: Constricted Patient Cognition Impaired: No Ability to Follow Directions: Good Speech Pattern: Spontaneous Speech Memory Description: Episodic Impaired Hallucinations: None Delusions: Not Present Thought Process: Distracted Thought Content: positive for [place] Judgement: Fair Diagnostics Vital Signs (24Hr): Vital Signs - 24 hr 02/20/25 20:00 02/21/25 07:45 Temperature 97.8 F 97.4 F Pulse Rate 89 81 Respiratory Rate 18 18 Blood Pressure 135/76 144/76 H Pulse Oximetry 96 96 Oxygen Delivery Method Room Air Room Air BMI result Body Mass Index 30.0 Labs 02/18/25 18:20 02/20/25 07:36 Labs: Laboratory Results - last 48 hr 02/20/25 07:36 Potassium 5.3 H Imaging Radiology Impressions: ITS Impressions Shoulder X-Ray 02/03/25 15:38 IMPRESSION: 1. No fracture or dislocation. 2. Moderate to severe calcific tendinopathy of the supraspinatus tendon. This has mildly improved when compared with 05/09/2024. Electronically signed by: Ji Nunes MD 02/03/2025 03:56 PM EDT Hand/Wrist X-Ray 02/07/25 16:58 IMPRESSION: Unremarkable examination of the left hand and wrist. Electronically signed by: Coleman Melo MD 02/08/2025 07:14 AM EDT RP Duplex Scan Lower Extremity Artery 02/14/25 16:45 IMPRESSION: Mild inflow disease in the left peroneal and anterior tibialis arteries. No occlusion. Electronically signed by: Abraham Capellan MD 02/15/2025 08:21 AM EDT RP Medications Medications Current Medications Acetaminophen (Acetaminophen 325 Mg Tablet) 975 mg PO BID [facility] Last Admin: 02/21/25 08:33 Dose: 975 mg Al Hydroxide/Mg Hydroxide (Magnesium Hydrox/Alum Hydrox 30 Ml Oral.Susp) 30 ml PO Q6H PRN PRN Reason: Heartburn/Nausea Last Admin: 02/18/25 18:07 Dose: 30 ml Benztropine Mesylate (Benztropine Mesylate 0.5 Mg Tablet) 0.5 mg PO BID [facility] Last Admin: 02/21/25 08:35 Dose: 0.5 mg Clonazepam (Clonazepam 1 Mg Tablet) 1 mg PO BID [facility] Last Admin: 02/21/25 08:34 Dose: 1 mg Diphenhydramine HCl (Diphenhydramine Hcl 25 Mg Capsule) 50 mg PO BEDTIME PRN PRN Reason: Sleep Ibuprofen (Ibuprofen 800 Mg Tablet) 800 mg PO DAILY PRN PRN Reason: Pain, Severe (Pain Scale 7-10) Last Admin: 02/20/25 14:14 Dose: 800 mg Levothyroxine Sodium (Levothyroxine Sodium 50 Mcg Tablet) 50 mcg PO DAILY@0600 [facility] Last Admin: 02/21/25 06:46 Dose: 50 mcg Lidocaine (Lidocaine 4 % Patch Adh..Patch) 1 patch TRANSDERMA DAILY [facility]; Protocol Last Admin: 02/21/25 08:36 Dose: 1 patch Loratadine (Loratadine 10 Mg Tablet) 10 mg PO DAILY [facility] Last Admin: 02/21/25 08:35 Dose: 10 mg Magnesium Hydroxide (Milk Of Magnesia 30 Ml Oral.Susp) 30 ml PO DAILY PRN PRN Reason: Constipation Multi-Ingred Cream/Lotion/Oil/Oint (Mineral Oil/Petrolatum,White 106 Gm Tube) 1 appl TOPICAL TID [facility]; Protocol Last Admin: 02/21/25 08:28 Dose: 1 appl Multivitamins/Vitamin C (Multivitamin Tablet) 1 tab PO DAILY [facility] Last Admin: 02/21/25 08:34 Dose: 1 tab Olanzapine (Olanzapine 5 Mg Tablet) 5 mg PO TID PRN PRN Reason: agitation Last Admin: 02/14/25 20:12 Dose: 5 mg Omeprazole (Omeprazole 20 Mg Capsule.Dr) 20 mg PO BID@0630,1630 [facility] Last Admin: 02/21/25 06:46 Dose: 20 mg Quetiapine Fumarate (Quetiapine Fumarate 50 Mg Tablet) 150 mg PO DAILY [facility] Last Admin: 02/21/25 08:32 Dose: 150 mg Quetiapine Fumarate (Quetiapine Fumarate 100 Mg Tablet) 500 mg PO BEDTIME [facility] Last Admin: 02/20/25 21:01 Dose: 500 mg Sertraline HCl (Sertraline Hcl 50 Mg Tablet) 150 mg PO DAILY [facility] Last Admin: 02/21/25 08:35 Dose: 150 mg Valproic Acid (Valproic Acid Liquid 250 Mg/5 Ml Solution) 500 mg PO BID [facility] Last Admin: 02/21/25 08:31 Dose: 500 mg Allergies Allergies Allergy/AdvReac Type Severity Reaction Status Date / Time haloperidol [From HALDOL] Allergy Intermediate LOWERS Verified 01/24/25 15:43 HEART RATE trazodone AdvReac Intermediate Hives Verified 01/24/25 15:43 Assessment & Plan Assessment & Plan (1) Schizoaffective disorder: Qualifiers: Schizoaffective disorder type: unspecified Qualified Code(s): F25.9 - Schizoaffective disorder, unspecified Status: Acute Code(s): F25.9 - Schizoaffective disorder, unspecified (2) Chronic post-traumatic stress disorder (PTSD): Status: Acute Code(s): F43.12 - Post-traumatic stress disorder, chronic (3) Polysubstance use disorder: Status: Acute Code(s): F19.90 - Other psychoactive substance use, unspecified, uncomplicated Plan 59-year-old female with history of polysubstance use disorder, hypothyroidism, schizoaffective disorder bipolar type, borderline personality disorder admitted to adult Psychiatry with consult placed hospitalist service due to left hand edema with question of cellulitis. #Swelling L hand/wrist -xray L hand/wrist ordered -appearance more consistent with a contusion however no injury -this is not consistent with cellulitis -Given prior history of joint swelling/redness and current symptoms present in the R wrist as well, raises concern for autoimmune condition such as rheumatoid arthritis or less likely gout -Check cbc, crp, esr, SEAN, rheumatoid factor, uric acid -for now recommend NSAIDs and ice pack Hospital course: 02/09 decrease Depakote to 750 mg b.i.d. 02/11 No change in presentation.? Pleasant on approach.? Singing in the halls.? Complains of some arthritic right shoulder pain but otherwise no complaints.? Last night patient he would get angry at a peer during a verbal altercation and punched the pexy glass of the kitchen; patient redirectable 02/12 pt denies any HI and is u upset that anyone ever said she had any HI toward anyone; keeps asking who said she had HI and cannot accept it was her 02/13 Decrease Depakote to 500 mg bid CBCD, BMP on 02/14. 02/15 Continue current regime/plan 02/16 Decrease Klonopin to 1 mg bid Decrease HS Seroquel to 300 mg K+ level in a.m. 02/17 K+ not drawn today. Repeat 02/18 Continue tx 02/18 pt requesting increase seroquel reviewed with Mariah Dhaliwal who oked- pt didn't agree to blood test yesterday but will draw electrolytes stat tonight given hx of low sodium and high k+ 02/19 recheck k+ tomorrow, tolerating inc seroquel , blood counts recovering on lower depakote 02/21 K+ on 02/22/25. Decrease a.m. Seroquel to 100 mg from 150 mg. Reason for continued inpatient stay Substantial Risk for: rapid decompensation Time Spent With Patient Time: Total time managing care of this patient today ____ minutes.
[2025-02-21 20:00] VITALS: BP 130/79; PULSE 88; RESP 16; TEMP 36.5; O2SAT 96
[2025-02-21] MEDS: QUEtiapine Fumarate 100 MG TABLET 500 MG PO (20:05)
[2025-02-22] MEDS: Omeprazole 20 MG CAPSULE.DR PO ×2 (06:42→17:33)
[2025-02-22] MEDS: Levothyroxine Sodium 50 MCG TABLET PO (06:42)
[2025-02-22 08:18] VITALS: BP 139/78; PULSE 80; TEMP 36.4; O2SAT 95
[2025-02-22] MEDS: Lidocaine 4 % Patch ADH..PATCH 1 PATCH TRANSDERMA (08:29)
[2025-02-22] MEDS: Valproic Acid Liquid 250 MG/5 ML SOLUTION 500 MG PO ×2 (08:29→20:24)
[2025-02-22] MEDS: Multivitamin TABLET 1 TAB PO (08:30)
[2025-02-22] MEDS: Benztropine Mesylate 0.5 MG TABLET PO ×2 (08:30→20:22)
[2025-02-22] MEDS: Loratadine 10 MG TABLET PO (08:30)
[2025-02-22] MEDS: clonazePAM 1 MG TABLET PO ×2 (08:30→20:23)
[2025-02-22] MEDS: Sertraline HCL 50 MG TABLET 150 MG PO (08:30)
[2025-02-22] MEDS: QUEtiapine Fumarate 100 MG TABLET PO (08:30)
[2025-02-22] MEDS: Acetaminophen 325 MG TABLET 975 MG PO ×2 (08:30→20:22)
[2025-02-22] MEDS: Mineral Oil/Petrolatum,White 106 GM Tube 1 APPL TOPICAL ×2 (08:33→20:23)
[2025-02-22 08:54] LABS: Potassium 4.5 mmol/L (3.3-5.1)
--- NOTE | 2025-02-22 10:03 | HO.PSYCHPN ---
Subjective Subjective Date of Service: 02/22/25 Reason For Visit: depressed Interim History: met with patient; discussed with team; reviewed chart Patient denies any HI or SI; was confused that anyone had ever thought otherwise and perseverated on this for awhile; otherwise remains in behavioral and impulse control Mental Status Exam Mental Status Exam Patient Appearance: Well Grooomed Patient Orientation: Person, Place, Time and Situation Level of Consciousness: Awake and Alert Patient Behavior: Appropriate, Cooperative and Good Eye Contact Mood Description: Calm Affect Description: Constricted Ability to Follow Directions: Good Speech Pattern: Clear Memory Description: Intact Hallucinations: None Delusions: Not Present Thought Process: Intact Thought Content: positive for Intact Diagnostics Vital Signs (24Hr): Vital Signs - 24 hr 02/21/25 20:00 02/22/25 08:18 Temperature 97.7 F 97.5 F Pulse Rate 88 80 Respiratory Rate 16 Blood Pressure 130/79 139/78 Pulse Oximetry 96 95 Oxygen Delivery Method Room Air Room Air BMI result Body Mass Index 30.0 Labs 02/18/25 18:20 02/22/25 08:08 Labs: Laboratory Results - last 48 hr 02/22/25 08:08 Potassium 4.5 Imaging Radiology Impressions: ITS Impressions Shoulder X-Ray 02/03/25 15:38 IMPRESSION: 1. No fracture or dislocation. 2. Moderate to severe calcific tendinopathy of the supraspinatus tendon. This has mildly improved when compared with 05/09/2024. Electronically signed by: Ji Nunes MD 02/03/2025 03:56 PM EDT RP Hand/Wrist X-Ray 02/07/25 16:58 IMPRESSION: Unremarkable examination of the left hand and wrist. Electronically signed by: Coleman Melo MD 02/08/2025 07:14 AM EDT RP Duplex Scan Lower Extremity Artery 02/14/25 16:45 IMPRESSION: Mild inflow disease in the left peroneal and anterior tibialis arteries. No occlusion. Electronically signed by: Abraham Capellan MD 02/15/2025 08:21 AM EDT RP Medications Medications Current Medications Acetaminophen (Acetaminophen 325 Mg Tablet) 975 mg PO BID [facility] Last Admin: 02/22/25 08:30 Dose: 975 mg Al Hydroxide/Mg Hydroxide (Magnesium Hydrox/Alum Hydrox 30 Ml Oral.Susp) 30 ml PO Q6H PRN PRN Reason: Heartburn/Nausea Last Admin: 02/18/25 18:07 Dose: 30 ml Benztropine Mesylate (Benztropine Mesylate 0.5 Mg Tablet) 0.5 mg PO BID [facility] Last Admin: 02/22/25 08:30 Dose: 0.5 mg Clonazepam (Clonazepam 1 Mg Tablet) 1 mg PO BID [facility] [place] Last Admin: 02/22/25 08:30 Dose: 1 mg Diphenhydramine HCl (Diphenhydramine Hcl 25 Mg Capsule) 50 mg PO BEDTIME PRN PRN Reason: Sleep Ibuprofen (Ibuprofen 800 Mg Tablet) 800 mg PO DAILY PRN PRN Reason: Pain, Severe (Pain Scale 7-10) Last Admin: 02/20/25 14:14 Dose: 800 mg Levothyroxine Sodium (Levothyroxine Sodium 50 Mcg Tablet) 50 mcg PO DAILY@0600 [facility] [place] Last Admin: 02/22/25 06:42 Dose: 50 mcg Lidocaine (Lidocaine 4 % Patch Adh..Patch) 1 patch TRANSDERMA DAILY [facility] [place]; Protocol Last Admin: 02/22/25 08:29 Dose: 1 patch Loratadine (Loratadine 10 Mg Tablet) 10 mg PO DAILY [facility] [place] Last Admin: 02/22/25 08:30 Dose: 10 mg Magnesium Hydroxide (Milk Of Magnesia 30 Ml Oral.Susp) 30 ml PO DAILY PRN PRN Reason: Constipation Multi-Ingred Cream/Lotion/Oil/Oint (Mineral Oil/Petrolatum,White 106 Gm Tube) 1 appl TOPICAL TID [facility] [place]; Protocol Last Admin: 02/22/25 08:33 Dose: 1 appl Multivitamins/Vitamin C (Multivitamin Tablet) 1 tab PO DAILY [facility] [place] Last Admin: 02/22/25 08:30 Dose: 1 tab Olanzapine (Olanzapine 5 Mg Tablet) 5 mg PO TID PRN PRN Reason: agitation Last Admin: 02/14/25 20:12 Dose: 5 mg Omeprazole (Omeprazole 20 Mg Capsule.Dr) 20 mg PO BID@0630,1630 [facility] [place] Last Admin: 02/22/25 06:42 Dose: 20 mg Quetiapine Fumarate (Quetiapine Fumarate 100 Mg Tablet) 500 mg PO BEDTIME [facility] [place] Last Admin: 02/21/25 20:05 Dose: 500 mg Quetiapine Fumarate (Quetiapine Fumarate 100 Mg Tablet) 100 mg PO DAILY [facility] [place] Last Admin: 02/22/25 08:30 Dose: 100 mg Sertraline HCl (Sertraline Hcl 50 Mg Tablet) 150 mg PO DAILY [facility] [place] Last Admin: 02/22/25 08:30 Dose: 150 mg Valproic Acid (Valproic Acid Liquid 250 Mg/5 Ml Solution) 500 mg PO BID [facility] [place] Last Admin: 02/22/25 08:29 Dose: 500 mg Allergies Allergies Allergy/AdvReac Type Severity Reaction Status Date / Time haloperidol [From HALDOL] Allergy Intermediate LOWERS Verified 01/24/25 15:43 HEART RATE trazodone AdvReac Intermediate Hives Verified 01/24/25 15:43 Assessment & Plan Assessment & Plan (1) Schizoaffective disorder: Qualifiers: Schizoaffective disorder type: unspecified Qualified Code(s): F25.9 - Schizoaffective disorder, unspecified Status: Acute Code(s): F25.9 - Schizoaffective disorder, unspecified (2) Chronic post-traumatic stress disorder (PTSD): Status: Acute Code(s): F43.12 - Post-traumatic stress disorder, chronic (3) Polysubstance use disorder: Status: Acute Code(s): F19.90 - Other psychoactive substance use, unspecified, uncomplicated Plan 59-year-old female with history of polysubstance use disorder, hypothyroidism, schizoaffective disorder bipolar type, borderline personality disorder admitted to adult Psychiatry with consult placed hospitalist service due to left hand edema with question of cellulitis. #Swelling L hand/wrist -xray L hand/wrist ordered -appearance more consistent with a contusion however no injury -this is not consistent with cellulitis -Given prior history of joint swelling/redness and current symptoms present in the R wrist as well, raises concern for autoimmune condition such as rheumatoid arthritis or less likely gout -Check cbc, crp, esr, SEAN, rheumatoid factor, uric acid -for now recommend NSAIDs and ice pack Hospital course: 02/09 decrease Depakote to 750 mg b.i.d. 02/11 No change in presentation.? Pleasant on approach.? Singing in the halls.? Complains of some arthritic right shoulder pain but otherwise no complaints.? Last night patient he would get angry at a peer during a verbal altercation and punched the pexy glass of the kitchen; patient redirectable 02/12 pt denies any HI and is u upset that anyone ever said she had any HI toward anyone; keeps asking who said she had HI and cannot accept it was her 02/13 Decrease Depakote to 500 mg bid CBCD, BMP on 02/14. 02/15 Continue current regime/plan 02/16 Decrease Klonopin to 1 mg bid Decrease HS Seroquel to 300 mg K+ level in a.m. 02/17 K+ not drawn today. Repeat 02/18 Continue tx 02/18 pt requesting increase seroquel reviewed with Mariah Dhaliwal who oked- pt didn't agree to blood test yesterday but will draw electrolytes stat tonight given hx of low sodium and high k+ 02/19 recheck k+ tomorrow, tolerating inc seroquel , blood counts recovering on lower depakote 02/21 K+ on 02/22/25. Decrease a.m. Seroquel to 100 mg from 150 mg. Patient educated on: diagnosis Informed Consent: does not understand Reason for continued inpatient stay Substantial Risk for: rapid decompensation Time Spent With Patient Time: Total time managing care of this patient today ____ minutes.
--- NOTE | 2025-02-22 15:35 | HO.PSYCHPN ---
Subjective Subjective Date of Service: 02/22/25 Reason For Visit: depressed Interim History: Patient reports feeling good and wanting to be discharged home. Pt stated, I feel like the medications are working well. I feel calm. I plan on staying with my daughter for a couple days . She denies any issues at this time. kitchen worker, Trent, has set up family meeting for tomorrow to discuss discharge. pt denies SI/HI/VH/AH. Medication Compliance: Yes Side effects from medications: No Mental Status Exam Mental Status Exam Patient Appearance: Well Grooomed Patient Orientation: Person, Place, Time and Situation Level of Consciousness: Awake and Alert Patient Behavior: Appropriate, Cooperative and Good Eye Contact Mood Description: Calm Affect Description: Constricted Ability to Follow Directions: Good Speech Pattern: Clear Memory Description: Intact Hallucinations: None Delusions: Not Present Thought Process: Intact Thought Content: positive for Intact Diagnostics Vital Signs (24Hr): Vital Signs - 24 hr 02/21/25 20:00 02/22/25 08:18 Temperature 97.7 F 97.5 F Pulse Rate 88 80 Respiratory Rate 16 Blood Pressure 130/79 139/78 Pulse Oximetry 96 95 Oxygen Delivery Method Room Air Room Air BMI result Body Mass Index 30.0 Labs 02/18/25 18:20 02/22/25 08:08 Labs: Laboratory Results - last 48 hr 02/22/25 08:08 Potassium 4.5 Imaging Radiology Impressions: ITS Impressions Shoulder X-Ray 02/03/25 15:38 IMPRESSION: 1. No fracture or dislocation. 2. Moderate to severe calcific tendinopathy of the supraspinatus tendon. This has mildly improved when compared with 05/09/2024. Electronically signed by: Ji Nunes MD 02/03/2025 03:56 PM EDT Hand/Wrist X-Ray 02/07/25 16:58 IMPRESSION: Unremarkable examination of the left hand and wrist. Electronically signed by: Coleman Melo MD 02/08/2025 07:14 AM EDT Duplex Scan Lower Extremity Artery 02/14/25 16:45 IMPRESSION: Mild inflow disease in the left peroneal and anterior tibialis arteries. No occlusion. Electronically signed by: Abraham Capellan MD 02/15/2025 08:21 AM EDT Medications Medications Current Medications Acetaminophen (Acetaminophen 325 Mg Tablet) 975 mg PO BID [facility] Last Admin: 02/22/25 08:30 Dose: 975 mg Al Hydroxide/Mg Hydroxide (Magnesium Hydrox/Alum Hydrox 30 Ml Oral.Susp) 30 ml PO Q6H PRN PRN Reason: Heartburn/Nausea Last Admin: 02/18/25 18:07 Dose: 30 ml Benztropine Mesylate (Benztropine Mesylate 0.5 Mg Tablet) 0.5 mg PO BID [facility] Last Admin: 02/22/25 08:30 Dose: 0.5 mg Clonazepam (Clonazepam 1 Mg Tablet) 1 mg PO BID [facility] Last Admin: 02/22/25 08:30 Dose: 1 mg Diphenhydramine HCl (Diphenhydramine Hcl 25 Mg Capsule) 50 mg PO BEDTIME PRN PRN Reason: Sleep Ibuprofen (Ibuprofen 800 Mg Tablet) 800 mg PO DAILY PRN PRN Reason: Pain, Severe (Pain Scale 7-10) Last Admin: 02/20/25 14:14 Dose: 800 mg Levothyroxine Sodium (Levothyroxine Sodium 50 Mcg Tablet) 50 mcg PO DAILY@0600 [facility] Last Admin: 02/22/25 06:42 Dose: 50 mcg Lidocaine (Lidocaine 4 % Patch Adh..Patch) 1 patch TRANSDERMA DAILY [facility]; Protocol Last Admin: 02/22/25 08:29 Dose: 1 patch Loratadine (Loratadine 10 Mg Tablet) 10 mg PO DAILY [facility] Last Admin: 02/22/25 08:30 Dose: 10 mg Magnesium Hydroxide (Milk Of Magnesia 30 Ml Oral.Susp) 30 ml PO DAILY PRN PRN Reason: Constipation Multi-Ingred Cream/Lotion/Oil/Oint (Mineral Oil/Petrolatum,White 106 Gm Tube) 1 appl TOPICAL TID [facility]; Protocol Last Admin: 02/22/25 08:33 Dose: 1 appl Multivitamins/Vitamin C (Multivitamin Tablet) 1 tab PO DAILY [facility] Last Admin: 02/22/25 08:30 Dose: 1 tab Olanzapine (Olanzapine 5 Mg Tablet) 5 mg PO TID PRN PRN Reason: agitation Last Admin: 02/14/25 20:12 Dose: 5 mg Omeprazole (Omeprazole 20 Mg Capsule.Dr) 20 mg PO BID@0630,1630 [facility] Last Admin: 02/22/25 06:42 Dose: 20 mg Quetiapine Fumarate (Quetiapine Fumarate 100 Mg Tablet) 500 mg PO BEDTIME [facility] Last Admin: 02/21/25 20:05 Dose: 500 mg Quetiapine Fumarate (Quetiapine Fumarate 100 Mg Tablet) 100 mg PO DAILY [facility] Last Admin: 02/22/25 08:30 Dose: 100 mg Sertraline HCl (Sertraline Hcl 50 Mg Tablet) 150 mg PO DAILY [facility] Last Admin: 02/22/25 08:30 Dose: 150 mg Valproic Acid (Valproic Acid Liquid 250 Mg/5 Ml Solution) 500 mg PO BID [facility] Last Admin: 02/22/25 08:29 Dose: 500 mg Allergies Allergies Allergy/AdvReac Type Severity Reaction Status Date / Time haloperidol [From HALDOL] Allergy Intermediate LOWERS Verified 01/24/25 15:43 HEART RATE trazodone AdvReac Intermediate Hives Verified 01/24/25 15:43 Assessment & Plan Assessment & Plan (1) Schizoaffective disorder: Qualifiers: Schizoaffective disorder type: unspecified Qualified Code(s): F25.9 - Schizoaffective disorder, unspecified Status: Acute Code(s): F25.9 - Schizoaffective disorder, unspecified (2) Chronic post-traumatic stress disorder (PTSD): Status: Acute Code(s): F43.12 - Post-traumatic stress disorder, chronic (3) Polysubstance use disorder: Status: Acute Code(s): F19.90 - Other psychoactive substance use, unspecified, uncomplicated Plan 59-year-old female with history of polysubstance use disorder, hypothyroidism, schizoaffective disorder bipolar type, borderline personality disorder admitted to adult Psychiatry with consult placed hospitalist service due to left hand edema with question of cellulitis. #Swelling L hand/wrist -xray L hand/wrist ordered -appearance more consistent with a contusion however no injury -this is not consistent with cellulitis -Given prior history of joint swelling/redness and current symptoms present in the R wrist as well, raises concern for autoimmune condition such as rheumatoid arthritis or less likely gout -Check cbc, crp, esr, SEAN, rheumatoid factor, uric acid -for now recommend NSAIDs and ice pack Hospital course: 02/09 decrease Depakote to 750 mg b.i.d. 02/11 No change in presentation.? Pleasant on approach.? Singing in the halls.? Complains of some arthritic right shoulder pain but otherwise no complaints.? Last night patient he would get angry at a peer during a verbal altercation and punched the pexy glass of the kitchen; patient redirectable 02/12 pt denies any HI and is u upset that anyone ever said she had any HI toward anyone; keeps asking who said she had HI and cannot accept it was her 02/13 Decrease Depakote to 500 mg bid CBCD, BMP on 02/14. 02/15 Continue current regime/plan 02/16 Decrease Klonopin to 1 mg bid Decrease HS Seroquel to 300 mg K+ level in a.m. 02/17 K+ not drawn today. Repeat 02/18 Continue tx 02/18 pt requesting increase seroquel reviewed with Mariah Dhaliwal who oked- pt didn't agree to blood test yesterday but will draw electrolytes stat tonight given hx of low sodium and high k+ 02/19 recheck k+ tomorrow, tolerating inc seroquel , blood counts recovering on lower depakote 4/ K+ on 02/22/25. Decrease a.m. Seroquel to 100 mg from 150 mg. 02/22: focused on discharge. social work job titlesTrent, set up family meeting with daughter to discuss discharge plan. potassium 4.5 on 02/22/25. Patient educated on: medication risk/benefits Reason for continued inpatient stay Substantial Risk for: med/psych decompensation Time Spent With Patient Time: Total time managing care of this patient today _20___ minutes.
[2025-02-22 20:00] VITALS: BP 127/66; PULSE 87; RESP 18; TEMP 36.3; O2SAT 97
[2025-02-22] MEDS: QUEtiapine Fumarate 100 MG TABLET 500 MG PO (20:23)
[2025-02-23 07:00] VITALS: BMI 29.7
[2025-02-23 08:00] VITALS: BP 135/67; PULSE 84; RESP 18; TEMP 36.4; O2SAT 97
[2025-02-23] MEDS: Sertraline HCL 50 MG TABLET 150 MG PO (08:17)
[2025-02-23] MEDS: Loratadine 10 MG TABLET PO (08:17)
[2025-02-23] MEDS: Levothyroxine Sodium 50 MCG TABLET PO (08:17)
[2025-02-23] MEDS: Acetaminophen 325 MG TABLET 975 MG PO ×2 (08:17→20:09)
[2025-02-23] MEDS: Multivitamin TABLET 1 TAB PO (08:17)
[2025-02-23] MEDS: QUEtiapine Fumarate 100 MG TABLET PO (08:17)
[2025-02-23] MEDS: clonazePAM 1 MG TABLET PO ×2 (08:17→20:10)
[2025-02-23] MEDS: Omeprazole 20 MG CAPSULE.DR PO ×2 (08:17→16:00)
[2025-02-23] MEDS: Valproic Acid Liquid 250 MG/5 ML SOLUTION 500 MG PO ×2 (08:17→20:09)
[2025-02-23] MEDS: Benztropine Mesylate 0.5 MG TABLET PO ×2 (08:17→20:10)
[2025-02-23] MEDS: Lidocaine 4 % Patch ADH..PATCH 1 PATCH TRANSDERMA (10:29)
--- NOTE | 2025-02-23 11:51 | P.PNPSI_ITS ---
Subjective Subjective Date of Service: 02/23/25 Reason For Visit: depressed Subjective Notes: Conditional Voluntary Healthcare Proxy: No Guardianship: No Medical Problems Affecting Mental Status: No Interim History: Pt met with daughter and team. DaughterLucretia is willing to have pt live with her. Pt with reported plans of living with Lucretia, going to [place], going to [place]. Will plan DC for early next week Medication Compliance: Yes Side effects from medications: No Attending Groups: Intermittent Review of Systems Acute medical concerns: No Medical Review of Systems: unchanged Review of Systems Review of Systems Pt denies Mental Status Exam Mental Status Exam Patient Appearance: Well Grooomed Patient Orientation: Person, Place, Time and Situation Level of Consciousness: Awake and Alert Patient Behavior: Appropriate, Cooperative and Good Eye Contact Mood Description: Calm Affect Description: Constricted Ability to Follow Directions: Good Speech Pattern: Clear Memory Description: Intact Hallucinations: None Delusions: Not Present Thought Process: Intact Thought Content: positive for Intact Diagnostics Vital Signs (24Hr): Vital Signs - 24 hr 02/22/25 20:00 02/23/25 08:00 Temperature 97.3 F 97.6 F Pulse Rate 87 84 Respiratory Rate 18 18 Blood Pressure 127/66 135/67 Pulse Oximetry 97 97 Oxygen Delivery Method Room Air Room Air BMI result Body Mass Index 29.7 Labs 02/18/25 18:20 02/22/25 08:08 Labs: Laboratory Results - last 48 hr 02/22/25 08:08 Potassium 4.5 Imaging Radiology Impressions: ITS Impressions Shoulder X-Ray 02/03/25 15:38 IMPRESSION: 1. No fracture or dislocation. 2. Moderate to severe calcific tendinopathy of the supraspinatus tendon. This has mildly improved when compared with 05/09/2024. Electronically signed by: Ji Nunes MD 02/03/2025 03:56 PM EDT RP Hand/Wrist X-Ray 02/07/25 16:58 IMPRESSION: Unremarkable examination of the left hand and wrist. Electronically signed by: Coleman Melo MD 02/08/2025 07:14 AM EDT RP Duplex Scan Lower Extremity Artery 02/14/25 16:45 IMPRESSION: Mild inflow disease in the left peroneal and anterior tibialis arteries. No occlusion. Electronically signed by: Abraham Capellan MD 02/15/2025 08:21 AM EDT Medications Medications Current Medications Acetaminophen (Acetaminophen 325 Mg Tablet) 975 mg PO BID [facility] Last Admin: 02/23/25 08:17 Dose: 975 mg Al Hydroxide/Mg Hydroxide (Magnesium Hydrox/Alum Hydrox 30 Ml Oral.Susp) 30 ml PO Q6H PRN PRN Reason: Heartburn/Nausea Last Admin: 02/18/25 18:07 Dose: 30 ml Benztropine Mesylate (Benztropine Mesylate 0.5 Mg Tablet) 0.5 mg PO BID [facility] Last Admin: 02/23/25 08:17 Dose: 0.5 mg Clonazepam (Clonazepam 1 Mg Tablet) 1 mg PO BID [facility] Last Admin: 02/23/25 08:17 Dose: 1 mg Diphenhydramine HCl (Diphenhydramine Hcl 25 Mg Capsule) 50 mg PO BEDTIME PRN PRN Reason: Sleep Ibuprofen (Ibuprofen 800 Mg Tablet) 800 mg PO DAILY PRN PRN Reason: Pain, Severe (Pain Scale 7-10) Last Admin: 02/20/25 14:14 Dose: 800 mg Levothyroxine Sodium (Levothyroxine Sodium 50 Mcg Tablet) 50 mcg PO DAILY@0600 [facility] Last Admin: 02/23/25 08:17 Dose: 50 mcg Lidocaine (Lidocaine 4 % Patch Adh..Patch) 1 patch TRANSDERMA DAILY [facility]; Protocol Last Admin: 02/23/25 10:29 Dose: 1 patch Loratadine (Loratadine 10 Mg Tablet) 10 mg PO DAILY [facility] Last Admin: 02/23/25 08:17 Dose: 10 mg Magnesium Hydroxide (Milk Of Magnesia 30 Ml Oral.Susp) 30 ml PO DAILY PRN PRN Reason: Constipation Multi-Ingred Cream/Lotion/Oil/Oint (Mineral Oil/Petrolatum,White 106 Gm Tube) 1 appl TOPICAL TID [facility]; Protocol Last Admin: 02/23/25 08:23 Dose: Not Given Multivitamins/Vitamin C (Multivitamin Tablet) 1 tab PO DAILY [facility] Last Admin: 02/23/25 08:17 Dose: 1 tab Olanzapine (Olanzapine 5 Mg Tablet) 5 mg PO TID PRN PRN Reason: agitation Last Admin: 02/14/25 20:12 Dose: 5 mg Omeprazole (Omeprazole 20 Mg Capsule.Dr) 20 mg PO BID@0630,1630 [facility] Last Admin: 02/23/25 08:17 Dose: 20 mg Quetiapine Fumarate (Quetiapine Fumarate 100 Mg Tablet) 500 mg PO BEDTIME [facility] Last Admin: 02/22/25 20:23 Dose: 500 mg Quetiapine Fumarate (Quetiapine Fumarate 100 Mg Tablet) 100 mg PO DAILY [facility] Last Admin: 02/23/25 08:17 Dose: 100 mg Sertraline HCl (Sertraline Hcl 50 Mg Tablet) 150 mg PO DAILY [facility] Last Admin: 02/23/25 08:17 Dose: 150 mg Valproic Acid (Valproic Acid Liquid 250 Mg/5 Ml Solution) 500 mg PO BID [facility] Last Admin: 02/23/25 08:17 Dose: 500 mg Allergies Allergies Allergy/AdvReac Type Severity Reaction Status Date / Time haloperidol [From HALDOL] Allergy Intermediate LOWERS Verified 01/24/25 15:43 HEART RATE trazodone AdvReac Intermediate Hives Verified 01/24/25 15:43 Assessment & Plan Assessment & Plan (1) Schizoaffective disorder: Qualifiers: Schizoaffective disorder type: unspecified Qualified Code(s): F25.9 - Schizoaffective disorder, unspecified Status: Acute Code(s): F25.9 - Schizoaffective disorder, unspecified (2) Chronic post-traumatic stress disorder (PTSD): Status: Acute Code(s): F43.12 - Post-traumatic stress disorder, chronic (3) Polysubstance use disorder: Status: Acute Code(s): F19.90 - Other psychoactive substance use, unspecified, uncomplicated Plan 59-year-old female with history of polysubstance use disorder, hypothyroidism, schizoaffective disorder bipolar type, borderline personality disorder admitted to adult Psychiatry with consult placed hospitalist service due to left hand edema with question of cellulitis. #Swelling L hand/wrist -xray L hand/wrist ordered -appearance more consistent with a contusion however no injury -this is not consistent with cellulitis -Given prior history of joint swelling/redness and current symptoms present in the R wrist as well, raises concern for autoimmune condition such as rheumatoid arthritis or less likely gout -Check cbc, crp, esr, SEAN, rheumatoid factor, uric acid -for now recommend NSAIDs and ice pack Hospital course: 02/09 decrease Depakote to 750 mg b.i.d. 02/11 No change in presentation.? Pleasant on approach.? Singing in the halls.? Complains of some arthritic right shoulder pain but otherwise no complaints.? Last night patient he would get angry at a peer during a verbal altercation and punched the pexy glass of the kitchen; patient redirectable 02/12 pt denies any HI and is u upset that anyone ever said she had any HI toward anyone; keeps asking who said she had HI and cannot accept it was her 02/13 Decrease Depakote to 500 mg bid CBCD, BMP on 02/14. 02/15 Continue current regime/plan 02/16 Decrease Klonopin to 1 mg bid Decrease HS Seroquel to 300 mg K+ level in a.m. 02/17 K+ not drawn today. Repeat 02/18 Continue tx 02/18 pt requesting increase seroquel reviewed with Mariah Dhaliwal who oked- pt didn't agree to blood test yesterday but will draw electrolytes stat tonight given hx of low sodium and high k+ 02/19 recheck k+ tomorrow, tolerating inc seroquel , blood counts recovering on lower depakote 02/21 K+ on 02/22/25. Decrease a.m. Seroquel to 100 mg from 150 mg. 02/22: focused on discharge. social media managerTrent, set up family meeting with daughter to discuss discharge plan. potassium 4.5 on 02/22/25. 02/23: DC next week to daughter Lucretia's home. Reason for continued inpatient stay Substantial Risk for: rapid decompensation Time Spent With Patient Time: Total time managing care of this patient today ____ minutes.
[2025-02-23] MEDS: Ibuprofen 800 MG TABLET PO (17:30)
[2025-02-23] MEDS: Magnesium Hydrox/Alum Hydrox 30 ML ORAL.SUSP PO (17:31)
[2025-02-23 20:00] VITALS: BP 161/79; PULSE 78; RESP 18; TEMP 36.3; O2SAT 95
[2025-02-23] MEDS: QUEtiapine Fumarate 100 MG TABLET 500 MG PO (20:10)
[2025-02-24] MEDS: Levothyroxine Sodium 50 MCG TABLET PO (06:51)
[2025-02-24] MEDS: Omeprazole 20 MG CAPSULE.DR PO ×2 (08:23→17:00)
[2025-02-24 08:29] VITALS: BP 130/61; PULSE 92; TEMP 36.4; O2SAT 94
[2025-02-24] MEDS: Valproic Acid Liquid 250 MG/5 ML SOLUTION 500 MG PO ×2 (08:47→19:51)
[2025-02-24] MEDS: clonazePAM 1 MG TABLET PO ×2 (08:47→19:51)
[2025-02-24] MEDS: Loratadine 10 MG TABLET PO (08:47)
[2025-02-24] MEDS: Benztropine Mesylate 0.5 MG TABLET PO ×2 (08:47→19:52)
[2025-02-24] MEDS: QUEtiapine Fumarate 100 MG TABLET PO (08:47)
[2025-02-24] MEDS: Sertraline HCL 50 MG TABLET 150 MG PO (08:47)
[2025-02-24] MEDS: Multivitamin TABLET 1 TAB PO (08:48)
[2025-02-24] MEDS: Lidocaine 4 % Patch ADH..PATCH 1 PATCH TRANSDERMA (08:48)
[2025-02-24] MEDS: Acetaminophen 325 MG TABLET 975 MG PO ×2 (08:48→19:52)
--- NOTE | 2025-02-24 09:38 | HO.PSYCHPN ---
Subjective Subjective Date of Service: 02/24/25 Reason For Visit: depressed Subjective Notes: Conditional Voluntary Interim History: Pt pleased with discharge plan. Will remain on the unit so she may complete meeting with [facility] to begin to establish services. Continue current regime and plan. Medication Compliance: Yes Side effects from medications: No Attending Groups: Intermittent Review of Systems Acute medical concerns: No Medical Review of Systems: unchanged Review of Systems Review of Systems Denies Mental Status Exam Mental Status Exam Patient Appearance: Well Grooomed Patient Orientation: Person, Place, Time and Situation Level of Consciousness: Awake and Alert Patient Behavior: Appropriate, Cooperative and Good Eye Contact Mood Description: Calm Affect Description: Constricted Ability to Follow Directions: Good Speech Pattern: Clear Memory Description: Intact Hallucinations: None Delusions: Not Present Thought Process: Intact Thought Content: positive for Intact Diagnostics Vital Signs (24Hr): Vital Signs - 24 hr 02/23/25 20:00 02/24/25 08:29 Temperature 97.3 F 97.5 F Pulse Rate 78 92 Respiratory Rate 18 Blood Pressure 161/79 H 130/61 Pulse Oximetry 95 94 Oxygen Delivery Method Room Air Room Air BMI result Body Mass Index 29.7 Labs 02/18/25 18:20 02/22/25 08:08 Imaging Radiology Impressions: ITS Impressions Shoulder X-Ray 02/03/25 15:38 IMPRESSION: 1. No fracture or dislocation. 2. Moderate to severe calcific tendinopathy of the supraspinatus tendon. This has mildly improved when compared with 05/09/2024. Electronically signed by: Ji Nunes MD 02/03/2025 03:56 PM EDT Hand/Wrist X-Ray 02/07/25 16:58 IMPRESSION: Unremarkable examination of the left hand and wrist. Electronically signed by: Coleman Melo MD 02/08/2025 07:14 AM EDT RP Duplex Scan Lower Extremity Artery 02/14/25 16:45 IMPRESSION: Mild inflow disease in the left peroneal and anterior tibialis arteries. No occlusion. Electronically signed by: Abraham Capellan MD 02/15/2025 08:21 AM EDT RP Medications Medications Current Medications Acetaminophen (Acetaminophen 325 Mg Tablet) 975 mg PO BID [facility] Last Admin: 02/24/25 08:48 Dose: 975 mg Al Hydroxide/Mg Hydroxide (Magnesium Hydrox/Alum Hydrox 30 Ml Oral.Susp) 30 ml PO Q6H PRN PRN Reason: Heartburn/Nausea Last Admin: 02/23/25 17:31 Dose: 30 ml Benztropine Mesylate (Benztropine Mesylate 0.5 Mg Tablet) 0.5 mg PO BID [facility] Last Admin: 02/24/25 08:47 Dose: 0.5 mg Clonazepam (Clonazepam 1 Mg Tablet) 1 mg PO BID [facility] Last Admin: 02/24/25 08:47 Dose: 1 mg Diphenhydramine HCl (Diphenhydramine Hcl 25 Mg Capsule) 50 mg PO BEDTIME PRN PRN Reason: Sleep Ibuprofen (Ibuprofen 800 Mg Tablet) 800 mg PO DAILY PRN PRN Reason: Pain, Severe (Pain Scale 7-10) Last Admin: 02/23/25 17:30 Dose: 800 mg Levothyroxine Sodium (Levothyroxine Sodium 50 Mcg Tablet) 50 mcg PO DAILY@0600 [facility] Last Admin: 02/24/25 06:51 Dose: 50 mcg Lidocaine (Lidocaine 4 % Patch Adh..Patch) 1 patch TRANSDERMA DAILY [facility]; Protocol Last Admin: 02/24/25 08:48 Dose: 1 patch Loratadine (Loratadine 10 Mg Tablet) 10 mg PO DAILY [facility] Last Admin: 02/24/25 08:47 Dose: 10 mg Magnesium Hydroxide (Milk Of Magnesia 30 Ml Oral.Susp) 30 ml PO DAILY PRN PRN Reason: Constipation Multi-Ingred Cream/Lotion/Oil/Oint (Mineral Oil/Petrolatum,White 106 Gm Tube) 1 appl TOPICAL TID [facility]; Protocol Last Admin: 02/24/25 09:09 Dose: Not Given Multivitamins/Vitamin C (Multivitamin Tablet) 1 tab PO DAILY [facility] Last Admin: 02/24/25 08:48 Dose: 1 tab Olanzapine (Olanzapine 5 Mg Tablet) 5 mg PO TID PRN PRN Reason: agitation Last Admin: 02/14/25 20:12 Dose: 5 mg Omeprazole (Omeprazole 20 Mg Capsule.Dr) 20 mg PO BID@0630,1630 [facility] Last Admin: 02/24/25 08:23 Dose: 20 mg Quetiapine Fumarate (Quetiapine Fumarate 100 Mg Tablet) 500 mg PO BEDTIME [facility] Last Admin: 02/23/25 20:10 Dose: 500 mg Quetiapine Fumarate (Quetiapine Fumarate 100 Mg Tablet) 100 mg PO DAILY [facility] Last Admin: 02/24/25 08:47 Dose: 100 mg Sertraline HCl (Sertraline Hcl 50 Mg Tablet) 150 mg PO DAILY [facility] Last Admin: 02/24/25 08:47 Dose: 150 mg Valproic Acid (Valproic Acid Liquid 250 Mg/5 Ml Solution) 500 mg PO BID [facility] Last Admin: 02/24/25 08:47 Dose: 500 mg Allergies Allergies Allergy/AdvReac Type Severity Reaction Status Date / Time haloperidol [From HALDOL] Allergy Intermediate LOWERS Verified 01/24/25 15:43 HEART RATE trazodone AdvReac Intermediate Hives Verified 01/24/25 15:43 Assessment & Plan Assessment & Plan (1) Schizoaffective disorder: Qualifiers: Schizoaffective disorder type: unspecified Qualified Code(s): F25.9 - Schizoaffective disorder, unspecified Status: Acute Code(s): F25.9 - Schizoaffective disorder, unspecified (2) Chronic post-traumatic stress disorder (PTSD): Status: Acute Code(s): F43.12 - Post-traumatic stress disorder, chronic (3) Polysubstance use disorder: Status: Acute Code(s): F19.90 - Other psychoactive substance use, unspecified, uncomplicated Plan 59-year-old female with history of polysubstance use disorder, hypothyroidism, schizoaffective disorder bipolar type, borderline personality disorder admitted to adult Psychiatry with consult placed hospitalist service due to left hand edema with question of cellulitis. #Swelling L hand/wrist -xray L hand/wrist ordered -appearance more consistent with a contusion however no injury -this is not consistent with cellulitis -Given prior history of joint swelling/redness and current symptoms present in the R wrist as well, raises concern for autoimmune condition such as rheumatoid arthritis or less likely gout -Check cbc, crp, esr, SEAN, rheumatoid factor, uric acid -for now recommend NSAIDs and ice pack Hospital course: 02/09 decrease Depakote to 750 mg b.i.d. 02/11 No change in presentation.? Pleasant on approach.? Singing in the halls.? Complains of some arthritic right shoulder pain but otherwise no complaints.? Last night patient he would get angry at a peer during a verbal altercation and punched the pexy glass of the kitchen; patient redirectable 02/12 pt denies any HI and is u upset that anyone ever said she had any HI toward anyone; keeps asking who said she had HI and cannot accept it was her 02/13 Decrease Depakote to 500 mg bid CBCD, BMP on 02/14. 02/15 Continue current regime/plan 02/16 Decrease Klonopin to 1 mg bid Decrease HS Seroquel to 300 mg K+ level in a.m. 02/17 K+ not drawn today. Repeat 02/18 Continue tx 02/18 pt requesting increase seroquel reviewed with Mariah Dhaliwal who oked- pt didn't agree to blood test yesterday but will draw electrolytes stat tonight given hx of low sodium and high k+ 02/19 recheck k+ tomorrow, tolerating inc seroquel , blood counts recovering on lower depakote 02/21 K+ on 02/22/25. Decrease a.m. Seroquel to 100 mg from 150 mg. 02/22: focused on discharge. social science professorTrent, set up family meeting with daughter to discuss discharge plan. potassium 4.5 on 02/22/25. 02/24/25 continue current plan Reason for continued inpatient stay Substantial Risk for: rapid decompensation Time Spent With Patient Time: Total time managing care of this patient today ____ minutes.
[2025-02-24] MEDS: diphenhydrAMINE HCL 25 MG CAPSULE 50 MG PO (19:52)
[2025-02-24] MEDS: QUEtiapine Fumarate 100 MG TABLET 500 MG PO (19:52)
[2025-02-24 20:00] VITALS: BP 121/75; PULSE 85; RESP 16; TEMP 36.5; O2SAT 97
[2025-02-25] MEDS: Levothyroxine Sodium 50 MCG TABLET PO (06:30)
[2025-02-25] MEDS: Omeprazole 20 MG CAPSULE.DR PO ×2 (06:51→16:39)
[2025-02-25] MEDS: Lidocaine 4 % Patch ADH..PATCH 1 PATCH TRANSDERMA (08:29)
[2025-02-25] MEDS: Acetaminophen 325 MG TABLET 975 MG PO ×2 (08:30→20:05)
[2025-02-25] MEDS: Valproic Acid Liquid 250 MG/5 ML SOLUTION 500 MG PO ×2 (08:30→20:07)
[2025-02-25] MEDS: QUEtiapine Fumarate 100 MG TABLET PO (08:31)
[2025-02-25] MEDS: Loratadine 10 MG TABLET PO (08:31)
[2025-02-25] MEDS: Benztropine Mesylate 0.5 MG TABLET PO ×2 (08:31→20:06)
[2025-02-25] MEDS: Sertraline HCL 50 MG TABLET 150 MG PO (08:31)
[2025-02-25] MEDS: clonazePAM 1 MG TABLET PO ×2 (08:31→20:06)
[2025-02-25] MEDS: Multivitamin TABLET 1 TAB PO (08:32)
--- NOTE | 2025-02-25 09:38 | HO.PSYCHPN ---
Subjective Subjective Date of Service: 02/25/25 Reason For Visit: depressed Subjective Notes: Conditional Voluntary Healthcare Proxy: No Guardianship: No Medical Problems Affecting Mental Status: No Interim History: Visable in milieu. Agrees to follow up labs on 02/27 to prepare for DC Pt will meet with [facility] on 02/27 as well to begin her services DC 02/28 to daughter Lucretia's home Medication Compliance: Yes Side effects from medications: No Attending Groups: Intermittent Review of Systems Acute medical concerns: No Review of Systems Review of Systems Denies today Mental Status Exam Mental Status Exam Patient Appearance: Well Grooomed Patient Orientation: Person, Place, Time and Situation Level of Consciousness: Awake and Alert Patient Behavior: Appropriate, Cooperative and Good Eye Contact Mood Description: Calm Affect Description: Constricted Ability to Follow Directions: Good Speech Pattern: Clear Memory Description: Intact Hallucinations: None Delusions: Not Present Thought Process: Intact Thought Content: positive for Intact Diagnostics Vital Signs (24Hr): Vital Signs - 24 hr 02/24/25 20:00 Temperature 97.7 F Pulse Rate 85 Respiratory Rate 16 Blood Pressure 121/75 Pulse Oximetry 97 Oxygen Delivery Method Room Air BMI result Body Mass Index 29.7 Labs 02/18/25 18:20 02/22/25 08:08 Imaging Radiology Impressions: ITS Impressions Shoulder X-Ray 02/03/25 15:38 IMPRESSION: 1. No fracture or dislocation. 2. Moderate to severe calcific tendinopathy of the supraspinatus tendon. This has mildly improved when compared with 05/09/2024. Electronically signed by: Ji Nunes MD 02/03/2025 03:56 PM EDT RP Hand/Wrist X-Ray 02/07/25 16:58 IMPRESSION: Unremarkable examination of the left hand and wrist. Electronically signed by: Coleman Melo MD 02/08/2025 07:14 AM EDT RP Duplex Scan Lower Extremity Artery 02/14/25 16:45 IMPRESSION: Mild inflow disease in the left peroneal and anterior tibialis arteries. No occlusion. Electronically signed by: Abraham Capellan MD 02/15/2025 08:21 AM EDT RP Medications Medications Current Medications Acetaminophen (Acetaminophen 325 Mg Tablet) 975 mg PO BID [facility] Last Admin: 02/25/25 08:30 Dose: 975 mg Al Hydroxide/Mg Hydroxide (Magnesium Hydrox/Alum Hydrox 30 Ml Oral.Susp) 30 ml PO Q6H PRN PRN Reason: Heartburn/Nausea Last Admin: 02/23/25 17:31 Dose: 30 ml Benztropine Mesylate (Benztropine Mesylate 0.5 Mg Tablet) 0.5 mg PO BID [facility] Last Admin: 02/25/25 08:31 Dose: 0.5 mg Clonazepam (Clonazepam 1 Mg Tablet) 1 mg PO BID [facility] Last Admin: 02/25/25 08:31 Dose: 1 mg Diphenhydramine HCl (Diphenhydramine Hcl 25 Mg Capsule) 50 mg PO BEDTIME PRN PRN Reason: Sleep Last Admin: 02/24/25 19:52 Dose: 50 mg Ibuprofen (Ibuprofen 800 Mg Tablet) 800 mg PO DAILY PRN PRN Reason: Pain, Severe (Pain Scale 7-10) Last Admin: 02/23/25 17:30 Dose: 800 mg Levothyroxine Sodium (Levothyroxine Sodium 50 Mcg Tablet) 50 mcg PO DAILY@0600 [facility] Last Admin: 02/25/25 06:30 Dose: 50 mcg Lidocaine (Lidocaine 4 % Patch Adh..Patch) 1 patch TRANSDERMA DAILY [facility]; Protocol Last Admin: 02/25/25 08:29 Dose: 1 patch Loratadine (Loratadine 10 Mg Tablet) 10 mg PO DAILY [facility] Last Admin: 02/25/25 08:31 Dose: 10 mg Magnesium Hydroxide (Milk Of Magnesia 30 Ml Oral.Susp) 30 ml PO DAILY PRN PRN Reason: Constipation Multi-Ingred Cream/Lotion/Oil/Oint (Mineral Oil/Petrolatum,White 106 Gm Tube) 1 appl TOPICAL TID [facility]; Protocol Last Admin: 02/25/25 08:42 Dose: Not Given Multivitamins/Vitamin C (Multivitamin Tablet) 1 tab PO DAILY [facility] Last Admin: 02/25/25 08:32 Dose: 1 tab Olanzapine (Olanzapine 5 Mg Tablet) 5 mg PO TID PRN PRN Reason: agitation Last Admin: 02/14/25 20:12 Dose: 5 mg Omeprazole (Omeprazole 20 Mg Capsule.Dr) 20 mg PO BID@0630,1630 [facility] Last Admin: 02/25/25 06:51 Dose: 20 mg Quetiapine Fumarate (Quetiapine Fumarate 100 Mg Tablet) 500 mg PO BEDTIME [facility] Last Admin: 02/24/25 19:52 Dose: 500 mg Quetiapine Fumarate (Quetiapine Fumarate 100 Mg Tablet) 100 mg PO DAILY [facility] Last Admin: 02/25/25 08:31 Dose: 100 mg Sertraline HCl (Sertraline Hcl 50 Mg Tablet) 150 mg PO DAILY [facility] Last Admin: 02/25/25 08:31 Dose: 150 mg Valproic Acid (Valproic Acid Liquid 250 Mg/5 Ml Solution) 500 mg PO BID [facility] Last Admin: 02/25/25 08:30 Dose: 500 mg Allergies Allergies Allergy/AdvReac Type Severity Reaction Status Date / Time haloperidol [From HALDOL] Allergy Intermediate LOWERS Verified 01/24/25 15:43 HEART RATE trazodone AdvReac Intermediate Hives Verified 01/24/25 15:43 Assessment & Plan Assessment & Plan (1) Schizoaffective disorder: Qualifiers: Schizoaffective disorder type: unspecified Qualified Code(s): F25.9 - Schizoaffective disorder, unspecified Status: Acute Code(s): F25.9 - Schizoaffective disorder, unspecified (2) Chronic post-traumatic stress disorder (PTSD): Status: Acute Code(s): F43.12 - Post-traumatic stress disorder, chronic (3) Polysubstance use disorder: Status: Acute Code(s): F19.90 - Other psychoactive substance use, unspecified, uncomplicated Plan 59-year-old female with history of polysubstance use disorder, hypothyroidism, schizoaffective disorder bipolar type, borderline personality disorder admitted to adult Psychiatry with consult placed hospitalist service due to left hand edema with question of cellulitis. #Swelling L hand/wrist -xray L hand/wrist ordered -appearance more consistent with a contusion however no injury -this is not consistent with cellulitis -Given prior history of joint swelling/redness and current symptoms present in the R wrist as well, raises concern for autoimmune condition such as rheumatoid arthritis or less likely gout -Check cbc, crp, esr, SEAN, rheumatoid factor, uric acid -for now recommend NSAIDs and ice pack Hospital course: 02/09 decrease Depakote to 750 mg b.i.d. 02/11 No change in presentation.? Pleasant on approach.? Singing in the halls.? Complains of some arthritic right shoulder pain but otherwise no complaints.? Last night patient he would get angry at a peer during a verbal altercation and punched the pexy glass of the kitchen; patient redirectable 02/12 pt denies any HI and is u upset that anyone ever said she had any HI toward anyone; keeps asking who said she had HI and cannot accept it was her 02/13 Decrease Depakote to 500 mg bid CBCD, BMP on 02/14. 02/15 Continue current regime/plan 02/16 Decrease Klonopin to 1 mg bid Decrease HS Seroquel to 300 mg K+ level in a.m. 02/17 K+ not drawn today. Repeat 02/18 Continue tx 02/18 pt requesting increase seroquel reviewed with Mariah Dhaliwal who oked- pt didn't agree to blood test yesterday but will draw electrolytes stat tonight given hx of low sodium and high k+ 02/19 recheck k+ tomorrow, tolerating inc seroquel , blood counts recovering on lower depakote 02/21 K+ on 02/22/25. Decrease a.m. Seroquel to 100 mg from 150 mg. 02/22: focused on discharge. social services analyst, Trent, set up family meeting with daughter to discuss discharge plan. potassium 4.5 on 02/22/25. 02/25: Continue plan/regime. Reason for continued inpatient stay Substantial Risk for: rapid decompensation Time Spent With Patient Time: Total time managing care of this patient today ____ minutes.
[2025-02-25 20:00] VITALS: BP 129/79; PULSE 84; RESP 16; TEMP 36.3; O2SAT 97
[2025-02-25] MEDS: QUEtiapine Fumarate 100 MG TABLET 500 MG PO (20:05)
[2025-02-25] MEDS: diphenhydrAMINE HCL 25 MG CAPSULE 50 MG PO (20:38)
[2025-02-26] MEDS: Omeprazole 20 MG CAPSULE.DR PO ×2 (06:36→16:37)
[2025-02-26] MEDS: Levothyroxine Sodium 50 MCG TABLET PO (06:36)
[2025-02-26 08:00] VITALS: BP 136/68; PULSE 76; TEMP 36.3; O2SAT 94
--- NOTE | 2025-02-26 08:17 | HO.PSYCHPN ---
Subjective Subjective Date of Service: 02/26/25 Reason For Visit: depressed Interim History: Patient visible on the unit appropriate interactions with peers. Appears calm, alert, in behavioral control. Was walking around with a water pitcher and drinking from a straw. She was agreeable to meeting with me and the patient sitter. She reports things are going well mood is stable. Denies any acute issues or concerns aside from concerns with her blood sugars. She says they have not been monitored and notes that she is not currently on metformin or insulin even though she has been on these in the past. She reports otherwise being in good physical health except that she notes that she experienced some discomfort after taking her medication this morning, possibly indigestion, which she notes has mostly resolved now. She denies any chest pain shortness of breath headache, dizziness, or fever. Med compliant. Denies any adverse effects. She denies any SI/HI/AH/VH. Diagnostics Vital Signs (24Hr): Vital Signs - 24 hr 02/25/25 20:00 02/26/25 08:00 Temperature 97.4 F 97.3 F Pulse Rate 84 76 Respiratory Rate 16 Blood Pressure 129/79 136/68 Pulse Oximetry 97 94 Oxygen Delivery Method Room Air Room Air BMI result Body Mass Index 29.7 Labs 02/18/25 18:20 02/22/25 08:08 Imaging Radiology Impressions: ITS Impressions Shoulder X-Ray 02/03/25 15:38 IMPRESSION: 1. No fracture or dislocation. 2. Moderate to severe calcific tendinopathy of the supraspinatus tendon. This has mildly improved when compared with 05/09/2024. Electronically signed by: Ji Nunes MD 02/03/2025 03:56 PM EDT Hand/Wrist X-Ray 02/07/25 16:58 IMPRESSION: Unremarkable examination of the left hand and wrist. Electronically signed by: Coleman Melo MD 02/08/2025 07:14 AM EDT Duplex Scan Lower Extremity Artery 02/14/25 16:45 IMPRESSION: Mild inflow disease in the left peroneal and anterior tibialis arteries. No occlusion. Electronically signed by: Abraham Capellan MD 02/15/2025 08:21 AM EDT Medications Medications Current Medications Acetaminophen (Acetaminophen 325 Mg Tablet) 975 mg PO BID [facility] Last Admin: 02/25/25 20:05 Dose: 975 mg Al Hydroxide/Mg Hydroxide (Magnesium Hydrox/Alum Hydrox 30 Ml Oral.Susp) 30 ml PO Q6H PRN PRN Reason: Heartburn/Nausea Last Admin: 02/23/25 17:31 Dose: 30 ml Benztropine Mesylate (Benztropine Mesylate 0.5 Mg Tablet) 0.5 mg PO BID [facility] Last Admin: 02/25/25 20:06 Dose: 0.5 mg Clonazepam (Clonazepam 1 Mg Tablet) 1 mg PO BID [facility] Last Admin: 02/25/25 20:06 Dose: 1 mg Diphenhydramine HCl (Diphenhydramine Hcl 25 Mg Capsule) 50 mg PO BEDTIME PRN PRN Reason: Sleep Last Admin: 02/25/25 20:38 Dose: 50 mg Ibuprofen (Ibuprofen 800 Mg Tablet) 800 mg PO DAILY PRN PRN Reason: Pain, Severe (Pain Scale 7-10) Last Admin: 02/23/25 17:30 Dose: 800 mg Levothyroxine Sodium (Levothyroxine Sodium 50 Mcg Tablet) 50 mcg PO DAILY@0600 [facility] Last Admin: 02/26/25 06:36 Dose: 50 mcg Lidocaine (Lidocaine 4 % Patch Adh..Patch) 1 patch TRANSDERMA DAILY [facility]; Protocol Last Admin: 02/25/25 08:29 Dose: 1 patch Loratadine (Loratadine 10 Mg Tablet) 10 mg PO DAILY [facility] Last Admin: 02/25/25 08:31 Dose: 10 mg Magnesium Hydroxide (Milk Of Magnesia 30 Ml Oral.Susp) 30 ml PO DAILY PRN PRN Reason: Constipation Multi-Ingred Cream/Lotion/Oil/Oint (Mineral Oil/Petrolatum,White 106 Gm Tube) 1 appl TOPICAL TID [facility]; Protocol Last Admin: 02/25/25 20:19 Dose: Not Given Multivitamins/Vitamin C (Multivitamin Tablet) 1 tab PO DAILY [facility] Last Admin: 02/25/25 08:32 Dose: 1 tab Olanzapine (Olanzapine 5 Mg Tablet) 5 mg PO TID PRN PRN Reason: agitation Last Admin: 02/14/25 20:12 Dose: 5 mg Omeprazole (Omeprazole 20 Mg Capsule.Dr) 20 mg PO BID@0630,1630 [facility] Last Admin: 02/26/25 06:36 Dose: 20 mg Quetiapine Fumarate (Quetiapine Fumarate 100 Mg Tablet) 500 mg PO BEDTIME [facility] Last Admin: 02/25/25 20:05 Dose: 500 mg Quetiapine Fumarate (Quetiapine Fumarate 100 Mg Tablet) 100 mg PO DAILY [facility] Last Admin: 02/25/25 08:31 Dose: 100 mg Sertraline HCl (Sertraline Hcl 50 Mg Tablet) 150 mg PO DAILY [facility] Last Admin: 02/25/25 08:31 Dose: 150 mg Valproic Acid (Valproic Acid Liquid 250 Mg/5 Ml Solution) 500 mg PO BID [facility] Last Admin: 02/25/25 20:07 Dose: 500 mg Allergies Allergies Allergy/AdvReac Type Severity Reaction Status Date / Time haloperidol [From HALDOL] Allergy Intermediate LOWERS Verified 01/24/25 15:43 HEART RATE trazodone AdvReac Intermediate Hives Verified 01/24/25 15:43 Assessment & Plan Assessment & Plan (1) Schizoaffective disorder: Qualifiers: Schizoaffective disorder type: unspecified Qualified Code(s): F25.9 - Schizoaffective disorder, unspecified Status: Acute Code(s): F25.9 - Schizoaffective disorder, unspecified (2) Chronic post-traumatic stress disorder (PTSD): Status: Acute Code(s): F43.12 - Post-traumatic stress disorder, chronic (3) Polysubstance use disorder: Status: Acute Code(s): F19.90 - Other psychoactive substance use, unspecified, uncomplicated Plan 59-year-old female with history of polysubstance use disorder, hypothyroidism, schizoaffective disorder bipolar type, borderline personality disorder admitted to adult Psychiatry with consult placed hospitalist service due to left hand edema with question of cellulitis. #Swelling L hand/wrist -xray L hand/wrist ordered -appearance more consistent with a contusion however no injury -this is not consistent with cellulitis -Given prior history of joint swelling/redness and current symptoms present in the R wrist as well, raises concern for autoimmune condition such as rheumatoid arthritis or less likely gout -Check cbc, crp, esr, SEAN, rheumatoid factor, uric acid -for now recommend NSAIDs and ice pack Hospital course: 02/09 decrease Depakote to 750 mg b.i.d. 02/11 No change in presentation.? Pleasant on approach.? Singing in the halls.? Complains of some arthritic right shoulder pain but otherwise no complaints.? Last night patient he would get angry at a peer during a verbal altercation and punched the pexy glass of the kitchen; patient redirectable 02/12 pt denies any HI and is u upset that anyone ever said she had any HI toward anyone; keeps asking who said she had HI and cannot accept it was her 02/13 Decrease Depakote to 500 mg bid CBCD, BMP on 02/14. 02/15 Continue current regime/plan 02/16 Decrease Klonopin to 1 mg bid Decrease HS Seroquel to 300 mg K+ level in a.m. 02/17 K+ not drawn today. Repeat 02/18 Continue tx 02/18 pt requesting increase seroquel reviewed with Mariah Dhaliwal who oked- pt didn't agree to blood test yesterday but will draw electrolytes stat tonight given hx of low sodium and high k+ 02/19 recheck k+ tomorrow, tolerating inc seroquel , blood counts recovering on lower depakote 02/21 K+ on 02/22/25. Decrease a.m. Seroquel to 100 mg from 150 mg. 02/22: focused on discharge. social worker assistantTrent, set up family meeting with daughter to discuss discharge plan. potassium 4.5 on 02/22/25. 02/25: Continue plan/regime. 02/26: Continue plan/regime. Informed Consent: understands Reason for continued inpatient stay Substantial Risk for: med/psych decompensation Time Spent With Patient Time: Total time managing care of this patient today ____ minutes.
[2025-02-26] MEDS: Lidocaine 4 % Patch ADH..PATCH 1 PATCH TRANSDERMA (08:19)
[2025-02-26] MEDS: Valproic Acid Liquid 250 MG/5 ML SOLUTION 500 MG PO ×2 (08:20→19:32)
[2025-02-26] MEDS: Benztropine Mesylate 0.5 MG TABLET PO ×2 (08:21→19:31)
[2025-02-26] MEDS: Loratadine 10 MG TABLET PO (08:21)
[2025-02-26] MEDS: clonazePAM 1 MG TABLET PO ×2 (08:21→19:32)
[2025-02-26] MEDS: Multivitamin TABLET 1 TAB PO (08:21)
[2025-02-26] MEDS: QUEtiapine Fumarate 100 MG TABLET PO (08:21)
[2025-02-26] MEDS: Acetaminophen 325 MG TABLET 975 MG PO ×2 (08:22→19:31)
[2025-02-26] MEDS: Sertraline HCL 50 MG TABLET 150 MG PO (08:22)
[2025-02-26] MEDS: QUEtiapine Fumarate 100 MG TABLET 500 MG PO (19:30)
[2025-02-26] MEDS: diphenhydrAMINE HCL 25 MG CAPSULE 50 MG PO (19:31)
[2025-02-26 19:53] VITALS: BP 150/83; PULSE 81; RESP 15; TEMP 36.3; O2SAT 95
[2025-02-26] MEDS: OLANZapine 5 MG TABLET PO (21:36)
[2025-02-27] MEDS: Levothyroxine Sodium 50 MCG TABLET PO (06:39)
[2025-02-27] MEDS: Omeprazole 20 MG CAPSULE.DR PO ×2 (06:39→17:39)
[2025-02-27 07:42] VITALS: BP 120/64; PULSE 77; RESP 20; TEMP 36.5; O2SAT 77
[2025-02-27] MEDS: Acetaminophen 325 MG TABLET 975 MG PO ×2 (08:39→20:03)
[2025-02-27] MEDS: Lidocaine 4 % Patch ADH..PATCH 1 PATCH TRANSDERMA (08:39)
[2025-02-27] MEDS: Benztropine Mesylate 0.5 MG TABLET PO ×2 (08:40→20:03)
[2025-02-27] MEDS: Loratadine 10 MG TABLET PO (08:40)
[2025-02-27] MEDS: Multivitamin TABLET 1 TAB PO (08:40)
[2025-02-27] MEDS: Sertraline HCL 50 MG TABLET 150 MG PO (08:40)
[2025-02-27] MEDS: QUEtiapine Fumarate 100 MG TABLET PO (08:40)
[2025-02-27] MEDS: Valproic Acid Liquid 250 MG/5 ML SOLUTION 500 MG PO ×2 (08:41→20:03)
[2025-02-27] MEDS: clonazePAM 1 MG TABLET PO ×2 (08:41→20:03)
--- NOTE | 2025-02-27 12:02 | P.PNPSI_ITS ---
Subjective Subjective Date of Service: 02/27/25 Reason For Visit: depressed Subjective Notes: Conditional Voluntary Healthcare Proxy: No Guardianship: No Medical Problems Affecting Mental Status: No Interim History: Pt reports she is prepared for discharge. Discussed her report to weekend team that she has DM. Review of AIc values and encouraged her to follow up with PCP as these values are WNL. She will plan to do this. We will order a glucometer for pt to self-monitor upon discharge. Review of meds. Denies current questions or concerns, denies SI,HI,AH,VH. Pleased to go to daughter's home to spend time with her grandchildren. Medication Compliance: Yes Side effects from medications: No Attending Groups: Intermittent Review of Systems Acute medical concerns: No Review of Systems Review of Systems Pt denies Mental Status Exam Mental Status Exam Patient Appearance: Well Grooomed Patient Orientation: Person, Place, Time and Situation Level of Consciousness: Awake and Alert Patient Behavior: Appropriate, Cooperative and Good Eye Contact Mood Description: Calm Affect Description: Constricted Ability to Follow Directions: Good Speech Pattern: Clear Memory Description: Intact Hallucinations: None Delusions: Not Present Thought Process: Intact Thought Content: positive for Intact Diagnostics Vital Signs (24Hr): Vital Signs - 24 hr 02/26/25 19:53 02/27/25 07:42 Temperature 97.3 F 97.7 F Pulse Rate 81 77 Respiratory Rate 15 20 Blood Pressure 150/83 H 120/64 Pulse Oximetry 95 77 L Oxygen Delivery Method Room Air BMI result Body Mass Index 29.7 Labs 02/18/25 18:20 02/22/25 08:08 Imaging Radiology Impressions: ITS Impressions Shoulder X-Ray 02/03/25 15:38 IMPRESSION: 1. No fracture or dislocation. 2. Moderate to severe calcific tendinopathy of the supraspinatus tendon. This has mildly improved when compared with 05/09/2024. Electronically signed by: Ji Nunes MD 02/03/2025 03:56 PM EDT RP Hand/Wrist X-Ray 02/07/25 16:58 IMPRESSION: Unremarkable examination of the left hand and wrist. Electronically signed by: Coleman Melo MD 02/08/2025 07:14 AM EDT RP Duplex Scan Lower Extremity Artery 02/14/25 16:45 IMPRESSION: Mild inflow disease in the left peroneal and anterior tibialis arteries. No occlusion. Electronically signed by: Abraham Capellan MD 02/15/2025 08:21 AM EDT RP Medications Medications Current Medications Acetaminophen (Acetaminophen 325 Mg Tablet) 975 mg PO BID [facility] Last Admin: 02/27/25 08:39 Dose: 975 mg Al Hydroxide/Mg Hydroxide (Magnesium Hydrox/Alum Hydrox 30 Ml Oral.Susp) 30 ml PO Q6H PRN PRN Reason: Heartburn/Nausea Last Admin: 02/23/25 17:31 Dose: 30 ml Benztropine Mesylate (Benztropine Mesylate 0.5 Mg Tablet) 0.5 mg PO BID [facility] Last Admin: 02/27/25 08:40 Dose: 0.5 mg Clonazepam (Clonazepam 1 Mg Tablet) 1 mg PO BID [facility] Last Admin: 02/27/25 08:41 Dose: 1 mg Diphenhydramine HCl (Diphenhydramine Hcl 25 Mg Capsule) 50 mg PO BEDTIME PRN PRN Reason: Sleep Last Admin: 02/26/25 19:31 Dose: 50 mg Ibuprofen (Ibuprofen 800 Mg Tablet) 800 mg PO DAILY PRN PRN Reason: Pain, Severe (Pain Scale 7-10) Last Admin: 02/23/25 17:30 Dose: 800 mg Levothyroxine Sodium (Levothyroxine Sodium 50 Mcg Tablet) 50 mcg PO DAILY@0600 [facility] Last Admin: 02/27/25 06:39 Dose: 50 mcg Lidocaine (Lidocaine 4 % Patch Adh..Patch) 1 patch TRANSDERMA DAILY [facility]; Protocol Last Admin: 02/27/25 08:39 Dose: 1 patch Loratadine (Loratadine 10 Mg Tablet) 10 mg PO DAILY [facility] Last Admin: 02/27/25 08:40 Dose: 10 mg Magnesium Hydroxide (Milk Of Magnesia 30 Ml Oral.Susp) 30 ml PO DAILY PRN PRN Reason: Constipation Multi-Ingred Cream/Lotion/Oil/Oint (Mineral Oil/Petrolatum,White 106 Gm Tube) 1 appl TOPICAL TID [facility]; Protocol Last Admin: 02/27/25 08:43 Dose: Not Given Multivitamins/Vitamin C (Multivitamin Tablet) 1 tab PO DAILY [facility] Last Admin: 02/27/25 08:40 Dose: 1 tab Olanzapine (Olanzapine 5 Mg Tablet) 5 mg PO TID PRN PRN Reason: agitation Last Admin: 02/26/25 21:36 Dose: 5 mg Omeprazole (Omeprazole 20 Mg Capsule.Dr) 20 mg PO BID@0630,1630 [facility] Last Admin: 02/27/25 06:39 Dose: 20 mg Quetiapine Fumarate (Quetiapine Fumarate 100 Mg Tablet) 500 mg PO BEDTIME [facility] Last Admin: 02/26/25 19:30 Dose: 500 mg Quetiapine Fumarate (Quetiapine Fumarate 100 Mg Tablet) 100 mg PO DAILY [facility] Last Admin: 02/27/25 08:40 Dose: 100 mg Sertraline HCl (Sertraline Hcl 50 Mg Tablet) 150 mg PO DAILY [facility] Last Admin: 02/27/25 08:40 Dose: 150 mg Valproic Acid (Valproic Acid Liquid 250 Mg/5 Ml Solution) 500 mg PO BID [facility] Last Admin: 02/27/25 08:41 Dose: 500 mg Allergies Allergies Allergy/AdvReac Type Severity Reaction Status Date / Time haloperidol [From HALDOL] Allergy Intermediate LOWERS Verified 01/24/25 15:43 HEART RATE trazodone AdvReac Intermediate Hives Verified 01/24/25 15:43 Assessment & Plan Assessment & Plan (1) Schizoaffective disorder: Qualifiers: Schizoaffective disorder type: unspecified Qualified Code(s): F25.9 - Schizoaffective disorder, unspecified Status: Acute Code(s): F25.9 - Schizoaffective disorder, unspecified (2) Chronic post-traumatic stress disorder (PTSD): Status: Acute Code(s): F43.12 - Post-traumatic stress disorder, chronic (3) Polysubstance use disorder: Status: Acute Code(s): F19.90 - Other psychoactive substance use, unspecified, uncomplicated Plan 59-year-old female with history of polysubstance use disorder, hypothyroidism, schizoaffective disorder bipolar type, borderline personality disorder admitted to adult Psychiatry with consult placed hospitalist service due to left hand edema with question of cellulitis. #Swelling L hand/wrist -xray L hand/wrist ordered -appearance more consistent with a contusion however no injury -this is not consistent with cellulitis -Given prior history of joint swelling/redness and current symptoms present in the R wrist as well, raises concern for autoimmune condition such as rheumatoid arthritis or less likely gout -Check cbc, crp, esr, SEAN, rheumatoid factor, uric acid -for now recommend NSAIDs and ice pack Hospital course: 02/09 decrease Depakote to 750 mg b.i.d. 02/11 No change in presentation.? Pleasant on approach.? Singing in the halls.? Complains of some arthritic right shoulder pain but otherwise no complaints.? Last night patient he would get angry at a peer during a verbal altercation and punched the pexy glass of the kitchen; patient redirectable 02/12 pt denies any HI and is u upset that anyone ever said she had any HI toward anyone; keeps asking who said she had HI and cannot accept it was her 02/13 Decrease Depakote to 500 mg bid CBCD, BMP on 02/14. 02/15 Continue current regime/plan 02/16 Decrease Klonopin to 1 mg bid Decrease HS Seroquel to 300 mg K+ level in a.m. 02/17 K+ not drawn today. Repeat 02/18 Continue tx 02/18 pt requesting increase seroquel reviewed with Mariah Dhaliwal who oked- pt didn't agree to blood test yesterday but will draw electrolytes stat tonight given hx of low sodium and high k+ 02/19 recheck k+ tomorrow, tolerating inc seroquel , blood counts recovering on lower depakote 02/21 K+ on 02/22/25. Decrease a.m. Seroquel to 100 mg from 150 mg. 02/27 DC 02/28. Reason for continued inpatient stay Substantial Risk for: stable for discharge Time Spent With Patient Time: Total time managing care of this patient today ____ minutes.
[2025-02-27 20:00] VITALS: BP 130/76; PULSE 87; RESP 18; TEMP 36.3; O2SAT 97
[2025-02-27] MEDS: OLANZapine 5 MG TABLET PO (20:03)
[2025-02-27] MEDS: QUEtiapine Fumarate 100 MG TABLET 500 MG PO (20:04)
[2025-02-27] MEDS: diphenhydrAMINE HCL 25 MG CAPSULE 50 MG PO (20:04)
[2025-02-28] MEDS: Levothyroxine Sodium 50 MCG TABLET PO (06:44)
[2025-02-28] MEDS: Omeprazole 20 MG CAPSULE.DR PO (07:00)
[2025-02-28 07:50] VITALS: BP 138/77; PULSE 85; RESP 18; TEMP 36.4; O2SAT 94
[2025-02-28] MEDS: Benztropine Mesylate 0.5 MG TABLET PO (08:29)
[2025-02-28] MEDS: Multivitamin TABLET 1 TAB PO (08:29)
[2025-02-28] MEDS: QUEtiapine Fumarate 100 MG TABLET PO (08:29)
[2025-02-28] MEDS: Loratadine 10 MG TABLET PO (08:29)
[2025-02-28] MEDS: Sertraline HCL 50 MG TABLET 150 MG PO (08:29)
[2025-02-28] MEDS: Acetaminophen 325 MG TABLET 975 MG PO (08:30)
[2025-02-28] MEDS: clonazePAM 1 MG TABLET PO (08:30)
[2025-02-28] MEDS: Valproic Acid Liquid 250 MG/5 ML SOLUTION 500 MG PO (08:33)
[2025-02-28] MEDS: Lidocaine 4 % Patch ADH..PATCH 1 PATCH TRANSDERMA (08:34)
--- NOTE | 2025-02-28 16:21 | P.DS_ITS ---
DS: Providers Provider Date of Service: 02/28/25 Date of admission: 01/25/25 12:39 Date of discharge: 02/28/25 Primary care physician: Jose C Physician Admitting clinician: Mariah Dhaliwal Attending physician on admission: Ruddy Beasley Consults: 02/03/25 15:22 Consult to Orthopedics Routine Consulting Provider: [facility] Reason for consultation: Right Shoulder pain increasing Has provider been notified: No 02/07/25 11:40 Consult to Hospitalist Routine Comment: Consulting Provider: [facility] Reason For Exam: L Hand Edema, ?cellulitis 02/09/25 05:21 Consult to Hospitalist Routine Comment: Consulting Provider: [facility] Reason For Exam: hyponatremia, R shoulder pain, diagnostics in 02/14/25 17:06 Consult to Vascular Surgery Routine Consulting Provider: [facility] Reason for consultation: r/l large systolic diff/ see duplex scan Has provider been notified: Zahra Attending physician on discharge: Ruddy Beasley Discharging clinician: Mariah Dhaliwal DS: Diagnosis Discharge Diagnosis (1) Schizoaffective disorder: Status: Acute (2) Chronic post-traumatic stress disorder (PTSD): Status: Acute (3) Polysubstance use disorder: Status: Acute DS: Medications Discharge Medications Home Medications: Previous Rx's ?Medication ?Instructions ?Recorded acetaminophen 325 mg tablet 975 mg (3 x 325 mg) PO BID #0 tabs 02/27/25 benztropine 0.5 mg tablet 0.5 mg PO BID #60 tabs 02/27/25 clonazepam 1 mg tablet 1 mg PO BID #14 tabs 02/27/25 diphenhydramine HCl 25 mg capsule 50 mg (2 x 25 mg) PO BEDTIME PRN 02/27/25 (Banophen) Sleep #30 caps ibuprofen 800 mg tablet 800 mg PO DAILY PRN Pain, Severe 02/27/25 (Pain Scale 7-10) #0 tabs levothyroxine 50 mcg tablet 50 mcg PO DAILY@0600 #30 tabs 02/27/25 lidocaine 4 % topical patch 1 patch transdermal DAILY #30 ea 02/27/25 (Lidocaine Pain Relief) loratadine 10 mg tablet 10 mg PO DAILY #30 tabs 02/27/25 multivitamin (Daily-Matt tablet) 1 tab PO DAILY #30 tabs 02/27/25 olanzapine 5 mg tablet 5 mg PO TID PRN agitation #15 tabs 02/27/25 omeprazole 20 mg capsule,delayed 20 mg PO BID@0630,1630 #60 caps 02/27/25 release quetiapine 100 mg tablet 100 mg PO DAILY #30 tabs 02/27/25 quetiapine 100 mg tablet (Seroquel) 100 mg PO BEDTIME #30 tabs 02/27/25 quetiapine 400 mg tablet (Seroquel) 400 mg PO BEDTIME #30 tabs 02/27/25 sertraline 150 mg capsule 150 mg PO DAILY #30 caps 02/27/25 sertraline 50 mg tablet 150 mg (3 x 50 mg) PO DAILY #0 tabs 02/27/25 valproic acid (as sodium salt) 250 500 mg (10 mL) PO BID #600 mL 02/27/25 mg/5 mL (5 mL) oral solution white petrolatum-mineral oil 1 appl topical TID #396 grams 02/27/25 topical cream (Dermacerin topical cream) blood-glucose meter (Blood Glucose #1 ea 02/28/25 Monitoring kit) Mental Status Exam Mental Status Exam Patient Appearance: Well Grooomed Patient Orientation: Person, Place, Time and Situation Level of Consciousness: Awake and Alert Patient Behavior: Appropriate, Cooperative and Good Eye Contact Mood Description: Calm Affect Description: Constricted Ability to Follow Directions: Good Speech Pattern: Clear Memory Description: Intact Hallucinations: None Delusions: Not Present Thought Process: Intact Thought Content: positive for Intact Data Data Completed and Pending Completed studies during hospitalization [Text1]: 02/22/25 08:08 Potassium 4.5 Imaging Diagnostic Imaging Impressions Shoulder X-Ray 02/03/25 15:38 IMPRESSION: 1. No fracture or dislocation. 2. Moderate to severe calcific tendinopathy of the supraspinatus tendon. This has mildly improved when compared with 05/09/2024. Electronically signed by: Ji Nunes MD 02/03/2025 03:56 PM EDT Hand/Wrist X-Ray 02/07/25 16:58 IMPRESSION: Unremarkable examination of the left hand and wrist. Electronically signed by: Coleman Melo MD 02/08/2025 07:14 AM EDT RP Duplex Scan Lower Extremity Artery 02/14/25 16:45 IMPRESSION: Mild inflow disease in the left peroneal and anterior tibialis arteries. No occlusion. Electronically signed by: Abraham Capellan MD 02/15/2025 08:21 AM EDT RP DS: Summary Hospital Course Hospital Course: Admission to adult psychiatry for exacerbation of schizoaffective disorder, PTSD, polysubstance use disorder. Medications were evaluated and adjusted. Pt reported several medical issues which were evaluated by hospitalist services and will continue treatment with primary care team at [facility]. Full milieu therapy was offered to pt to strengthen coping skills. [facility] service application was made and pt is in process of receiving services. Pt plans to live with her daughter and grandchildren locally. She will continue her treatment with [facility] and [facility]. Status at Discharge Functional status at discharge: independent ambulation Overall status at discharge: patient is back to baseline Time Spent with Patient Time attestation: Total time managing care of this patient today ____ minutes. Time spent: Less than 30 minutes Discharge Plan Discharge Anticipated Discharge Date/Time: 02/28/25 12:00 Patient Disposition: Home, Self-Care Discharge Diagnosis: PTSD Schizoaffective Disorder Polysubstance Use Disorder Referrals: [facility] [Other] - 03/28/25 9:30 am (Hospital follow-up appointment with primary care provider ) [facility] ([facility]): Param Avery (therapy) [Other] - 03/07/25 10:00 am (Hospital discharge appointment Initial diagnostic evaluation for therapy Appointment is in person at [facility]) [facility] Development: Luis Hart (psychiatry) [Other] - 04/10/25 9:00 am (hospital discharge appointment Initial psychiatric evaluation for psychiatric medication management Appointment is in person at [facility] in [place], [place]) Department of Mental Health: Breanna Salinas [Other] - 1 Week (Patient has been referred to department of mental health and evaluated by protective services case worker Breanna Salinas. Patient referral will be sent to [facility] office and staff will conduct next steps needs and means assessment in community.) Discharge Medications: New acetaminophen 325 mg Tablet 975 mg PO BID Qty: 0 0RF benztropine 0.5 mg Tablet 0.5 mg PO BID Qty: 60 0RF lidocaine [Lidocaine Pain Relief] 4 % Adhesive Patch,Medicated 1 patch transdermal DAILY Qty: 30 0RF Protocol: Apply to: Apply to: right shoulder ibuprofen 800 mg Tablet 800 mg PO DAILY PRN (Reason: Pain, Severe (Pain Scale 7-10)) Qty: 0 0RF olanzapine 5 mg Tablet 5 mg PO TID PRN (Reason: agitation) Qty: 15 0RF clonazepam 1 mg Tablet 1 mg PO BID Qty: 14 4RF quetiapine 100 mg Tablet 100 mg PO DAILY Qty: 30 0RF levothyroxine 50 mcg Tablet 50 mcg PO DAILY@0600 Qty: 30 0RF diphenhydramine HCl [Banophen] 25 mg Capsule 50 mg PO BEDTIME PRN (Reason: Sleep) Qty: 30 0RF omeprazole 20 mg Capsule,Delayed Release(Dr/Ec) 20 mg PO BID@0630,1630 Qty: 60 0RF sertraline 50 mg Tablet 150 mg PO DAILY Qty: 0 0RF loratadine 10 mg Tablet 10 mg PO DAILY Qty: 30 0RF Dermacerin Cream 1 appl topical TID Qty: 396 0RF Protocol: Apply to: Apply to: feet valproic acid (as sodium salt) 250 mg/5 mL (5 mL) Solution 500 mg PO BID Qty: 600 0RF multivitamin [Daily-Matt] Tablet 1 tab PO DAILY Qty: 30 0RF quetiapine [Seroquel] 400 mg tablet 400 mg PO BEDTIME Qty: 30 0RF Rx Instructions: 500 mg at bedtime quetiapine [Seroquel] 100 mg tablet 100 mg PO BEDTIME Qty: 30 0RF Rx Instructions: 500 mg bedtime sertraline 150 mg capsule 150 mg PO DAILY Qty: 30 0RF (DME) blood-glucose meter [Blood Glucose Monitoring] Kit See Rx Instructions .Route Qty: 1 0RF Rx Instructions: As directed quetiapine [Seroquel] 400 mg tablet 400 mg PO BEDTIME Qty: 30 0RF Rx Instructions: Take with 100 mg tab for a total of 500 mg at bedtime. Discontinued clonazepam [Klonopin] 1 mg Tablet 1 mg PO BID divalproex [Depakote] 500 mg Tablet,Delayed Release (Dr/Ec) 500 mg PO BID temazepam [Restoril] 30 mg Capsule 30 mg PO BEDTIME levothyroxine [Synthroid] 50 mcg Tablet 50 mcg PO DAILY hydroxyzine pamoate [Vistaril] 25 mg Capsule 25 mg PO BEDTIME Seroquel tablet 400 mg PO BEDTIME Seroquel tablet 250 mg PO DAILY Zoloft tablet 150 mg PO DAILY Discharge Orders: Discharge Order (Routine); Ordered 02/28/25 Ordered By: Mariah Dhaliwal Diet: Advance to usual diet Activity on Discharge: As tolerated Stand Alone Forms: Patient Portal Discharge page, Community Support Print Language: Unable To Collect Care Plan Goals: Mood and Behavioral Stabilization Abstinence from Substances Health Concerns: Mood and Behavioral Stabilization Abstinence from Substances Plan of Treatment: Attend scheduled appointments Take medications as directed Assessment: No SI,HI,AH,VH No sx of acute maddison or psychosis Pt/family agree with plan of care Discharge Date/Time: 02/28/25 11:22
== END 2025-02-28 11:22 | disposition home or self-care (01) | DRG 750 ==
LOC: HO.ED 01-25 07:49 → HO.PM5 01-25 12:52
PROVIDERS: Physician Assistant; Psychiatry & Neurology Psychiatry; Student in an Organized Health Care Education/Training Program; Admitting Provider Psychiatry & Neurology Psychiatry; Emergency Provider Student in an Organized Health Care Education/Training Program; Visit Provider Clinical Nurse Specialist Psychiatric/Mental Health, Adult
DX: F25.9 Schizoaffective disorder, unspecified (principal); R45.851 Suicidal ideations; R45.850 Homicidal ideations; E87.5 Hyperkalemia; E03.9 Hypothyroidism, unspecified; M75.31 Calcific tendinitis of right shoulder; F43.12 Post-traumatic stress disorder, chronic; F19.90 Other psychoactive substance use, unspecified, uncomplicated; F17.210 Nicotine dependence, cigarettes, uncomplicated; Z71.6 Tobacco abuse counseling; Z79.890 Hormone replacement therapy; Z79.899 Other long term (current) drug therapy
CPT/HCPCS: 36415; 70450; 73030; 73110; 73130; 73200; 80048; 80051; 80053; 80061; 80143; 80164; 80178; 80179; 80307; 81001; 82140; 82607; 82746; 83036; 83540; 84132; 84439; 84443; 84484; 84550; 85025; 85652; 86038; 86140; 86431; 93005; 93926; 93931; 97161; 99285; S9485

== ENCOUNTER → 2025-01-24 21:28 | Outpatient (BNV) | payer MEDICAID, SELFPAY | PROVIDERS: Emergency Provider Student in an Organized Health Care Education/Training Program; Visit Provider Internal Medicine Cardiovascular Disease | DX: R94.31 Abnormal electrocardiogram [ECG] [EKG] (principal); Z01.810 Encounter for preprocedural cardiovascular examination | CPT/HCPCS: 93010 ==

== ENCOUNTER → 2025-01-25 11:25 | Outpatient (BNV) | payer MEDICAID, SELFPAY | PROVIDERS: Admitting Provider Psychiatry & Neurology Psychiatry; Emergency Provider Student in an Organized Health Care Education/Training Program; Visit Provider Internal Medicine Cardiovascular Disease | DX: Z13.6 Encounter for screening for cardiovascular disorders (principal) | CPT/HCPCS: 93010 ==

== ENCOUNTER 2025-01-25 12:39 | Outpatient (BNV) | payer MEDICAID, SELFPAY | END 2025-02-08 23:54 | PROVIDERS: Admitting Provider Psychiatry & Neurology Psychiatry; Emergency Provider Student in an Organized Health Care Education/Training Program; Visit Provider Internal Medicine Cardiovascular Disease | DX: M25.511 Pain in right shoulder (principal) | CPT/HCPCS: 93010 ==

== ENCOUNTER 2025-01-25 12:39 | Outpatient (BNV) | payer MEDICAID, SELFPAY | END 2025-02-14 16:45 | PROVIDERS: Admitting Provider Psychiatry & Neurology Psychiatry; Emergency Provider Student in an Organized Health Care Education/Training Program; Visit Provider Radiology Diagnostic Radiology | DX: M79.605 Pain in left leg (principal); R22.42 Localized swelling, mass and lump, left lower limb | CPT/HCPCS: 93926 ==

== ENCOUNTER 2025-01-25 12:39 | Outpatient (BNV) | payer MEDICAID, SELFPAY | END 2025-02-03 15:38 | PROVIDERS: Admitting Provider Psychiatry & Neurology Psychiatry; Emergency Provider Student in an Organized Health Care Education/Training Program; Visit Provider Radiology Diagnostic Radiology | DX: M75.31 Calcific tendinitis of right shoulder (principal) | CPT/HCPCS: 73030 ==

== ENCOUNTER 2025-01-25 12:39 | Outpatient (BNV) | payer MEDICAID, SELFPAY | END 2025-01-27 15:31 | PROVIDERS: Admitting Provider Psychiatry & Neurology Psychiatry; Emergency Provider Student in an Organized Health Care Education/Training Program; Visit Provider Nuclear Medicine | DX: R51.9 Headache, unspecified (principal) | CPT/HCPCS: 70450 ==

== ENCOUNTER 2025-01-25 12:39 | Outpatient (BNV) | payer MEDICAID, SELFPAY | END 2025-02-06 09:50 | PROVIDERS: Admitting Provider Psychiatry & Neurology Psychiatry; Emergency Provider Student in an Organized Health Care Education/Training Program; Visit Provider Internal Medicine Cardiovascular Disease | DX: R94.31 Abnormal electrocardiogram [ECG] [EKG] (principal); Z13.6 Encounter for screening for cardiovascular disorders | CPT/HCPCS: 93010 ==

== ENCOUNTER 2025-01-25 12:39 | Outpatient (BNV) | payer MEDICAID, SELFPAY | END 2025-02-07 16:58 | PROVIDERS: Admitting Provider Psychiatry & Neurology Psychiatry; Emergency Provider Student in an Organized Health Care Education/Training Program; Visit Provider Radiology Diagnostic Radiology | DX: M79.642 Pain in left hand (principal); M25.532 Pain in left wrist | CPT/HCPCS: 73110; 73130 ==

== ENCOUNTER 2025-01-25 12:39 | Outpatient (BNV) | payer MEDICAID, SELFPAY | END 2025-02-09 00:10 | PROVIDERS: Admitting Provider Psychiatry & Neurology Psychiatry; Emergency Provider Student in an Organized Health Care Education/Training Program; Visit Provider Radiology Neuroradiology | DX: M25.531 Pain in right wrist (principal) | CPT/HCPCS: 93931 ==

== ENCOUNTER 2025-01-25 12:39 | Outpatient (BNV) | payer MEDICAID, SELFPAY | END 2025-02-08 23:30 | PROVIDERS: Admitting Provider Psychiatry & Neurology Psychiatry; Emergency Provider Student in an Organized Health Care Education/Training Program; Visit Provider Radiology Diagnostic Radiology | DX: M75.31 Calcific tendinitis of right shoulder (principal) | CPT/HCPCS: 73200 ==

== ENCOUNTER → 2025-01-25 12:39 | Outpatient (BNV) | payer OTHER, SELFPAY | PROVIDERS: Admitting Provider Psychiatry & Neurology Psychiatry; Emergency Provider Student in an Organized Health Care Education/Training Program; Visit Provider Clinical Nurse Specialist Psychiatric/Mental Health, Adult | DX: F25.0 Schizoaffective disorder, bipolar type (principal); F43.12 Post-traumatic stress disorder, chronic; F19.90 Other psychoactive substance use, unspecified, uncomplicated | CPT/HCPCS: 99231; 99232 ==

== ENCOUNTER → 2025-01-25 12:39 | Outpatient (BNV) | payer MEDICAID, SELFPAY | PROVIDERS: Admitting Provider Psychiatry & Neurology Psychiatry; Emergency Provider Student in an Organized Health Care Education/Training Program; Visit Provider Physician Assistant | DX: M79.89 Other specified soft tissue disorders (principal) | CPT/HCPCS: 99222; 99499 ==

== ENCOUNTER 2025-05-05 20:42 | Inpatient (IN) | payer OTHER, SELFPAY ==
[2025-05-05 20:56] VITALS: BP 120/74; PULSE 88; RESP 16; TEMP 36.6; O2SAT 96; BMI 31.5
--- NOTE | 2025-05-05 21:04 | ECG_ITS ---
Test Reason : chest pain Blood Pressure : */* mmHG Vent. Rate : 76 BPM Atrial Rate : 76 BPM P-R Int : 120 ms QRS Dur : 86 ms QT Int : 388 ms P-R-T Axes : 20 14 60 degrees QTcB Int : 436 ms Normal sinus rhythm Normal ECG When compared with ECG of 08-Feb-2025 23:54, No significant change was found Referred By: Gabriela Santillan Electronically Signed By: SHAHRIAR ZAPATA MD
[2025-05-05 21:27] LABS: MANUAL DIFF FLAG NO
[2025-05-05 21:30] LABS: Basophils Percent Auto 0.5 % (0-2); Eosinophils Absolute Auto 0.1 X10*3/uL (0.0-0.4); Eosinophils Percent Auto 2.4 % (0-4); Hematocrit 35.8 % (37.0-47.0); Imm Gran Abs Auto 0.01 X10*3/uL (0.00-0.03); Imm Gran Pct Auto 0.2 % (0.0-0.4); Lymphocytes Absolute Auto 2.9 X10*3/uL (1.2-4.9); Lymphocytes Percent Auto 50.3 % (20-40); Mean Corpuscular HGB Conc 33.5 g/dl (31.0-35.0); Mean Corpuscular Hemoglobin 29.9 pg (27.0-33.0); Mean Corpuscular Volume 89.1 fL (80.0-98.0); Mean Platelet Volume 9.7 fL (9.4-12.3); Monocytes Absolute Auto 0.6 X10*3/uL (0.1-1.2); Monocytes Percent Auto 10.6 % (2-11); Neutrophils Absolute Auto 2.1 x10*3/uL (2.0-8.3); Platelet Count 218 X10*3/uL (160-400); Red Blood Count 4.02 X10*6/uL (4.20-5.50); Red Cell Distribution Width 13.9 % (11.0-16.0); White Blood Count 5.7 X10*3/uL (4.8-10.8)
[2025-05-05 21:42] LABS: Acetaminophen LAB < 3 mcg/mL (<30); Alanine Aminotransferase 38 U/L (0-31); Albumin Level 4.4 g/dL (3.5-5.0); Alkaline Phosphatase 77 U/L (39-117); Anion Gap 12 (12-20); Aspartate Amino Transferase 41 U/L (5-31); Bilirubin Total 0.3 mg/dL (0.0-1.0); Blood Urea Nitrogen 21 mg/dL (9-16); Calcium 9.3 mg/dL (8.4-10.2); Carbon Dioxide 28 mmol/L (22-29); Chloride 107 mmol/L (96-108); Estimated Glomerular Filt Rate > 60; Ethanol < 10 mg/dL; Glucose Random 128 mg/dL (60-115); Potassium 4.8 mmol/L (3.3-5.1); Salicylate < 5.0 mg/dL (15-30); Sodium 142 mmol/L (135-145); Total Protein 8.8 g/dL (6.5-8.0)
--- NOTE | 2025-05-05 21:57 | PC.NURSE ---
t/w went to client with financial institution president to interview client about safety and med compliance and she didnt want light on, essentially refused to speak to t/w. soon thereafter initiating conversation i thanked her for her time and exited room.
[2025-05-05 22:35] LABS: HCG Quantitative 4 mIU/mL
[2025-05-05 23:04] LABS: Appearance Urine Clear; Color Urine Yellow; Glucose Urine UA Negative (Negative); Leukocyte Esterase Urine Negative (Negative); Nitrite Urine Negative (Negative); Specific Gravity - Urine 1.025 (1.005-1.025); Urine Blood Negative (Negative); Urine Ketones Negative (Negative); Urine Protein Negative (Neg-Trace)
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
[2025-05-05 23:17] LABS: Amphetamine Screen Urine Not Detected (Not Detect); Barbiturates, Urine Not Detected (Not Detect); Benzodiazepines Screen Urine Not Detected (Not Detect); Buprenorphine Scr Not Detected (Not Detect); Cannabinoid Screen Urine POSITIVE (Not Detect); Cocaine Screen Urine POSITIVE (Not Detect); Fentanyl, urine Not Detected (Not Detect); Methadone Screen, Urine Not Detected (Not Detect); Opiate Screen Urine Not Detected (Not Detect); Oxycodone Screen Urine Not Detected (Not Detect); Phencyclidine Screen Urine Not Detected (Not Detect)
--- NOTE | 2025-05-06 02:08 | PC.NURSE ---
med rec was done to the best of my ability, it appere to t/w medications had not been picked up and initilly client declined to speak to t/w just after arrival either seemd under the influence of substances or just agitated by changeover process, later client confirmed there were current med bottles in her bag excepting her depakote which bottle was not with her nd it was unclear that temazepam was current also b/c of lack of benzos in urine. will adivse to have RN or pharmacy try and reach out to pharmacy in am.
--- NOTE | 2025-05-06 06:06 | PC.NURSE ---
attempted to do the matilde/rec, this designer writer pulled up two d/c packets from [facility] 01/26/25 and 02/28/25 and there was some discrepancies between those two so at this time unable to complete the med rec
--- NOTE | 2025-05-06 06:22 | PC.NURSE ---
pt was woken up to do her vs, started to yell and scream at the staff that she needs to go home and needs her meds, pt came out to the bathroom and started to bang on the glass while she walking by to the bathroom
--- NOTE | 2025-05-06 06:28 | PC.NURSE ---
pt is currently refusing the po meds
[2025-05-06 06:33] VITALS: BP 131/81; PULSE 78; RESP 17; TEMP 36.8; O2SAT 99
--- NOTE | 2025-05-06 06:46 | PC.NURSE ---
care team is currently speaking to the pt with the park interpreter
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
[2025-05-06] MEDS: clonazePAM 1 MG TABLET PO (07:30)
[2025-05-06] MEDS: QUEtiapine Fumarate 100 MG TABLET PO (07:31)
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
--- NOTE | 2025-05-06 11:38 | PC.NURSE ---
pharmacy has been contacted and consulted for assistance with med rec.
[2025-05-06 14:45] VITALS: BP 90/50; PULSE 74; RESP 17; TEMP 36.6
--- NOTE | 2025-05-06 16:08 | PHA.MEDREC ---
Pharmacy Consult ? Medication Reconciliation Pharmacy has reviewed the medication reconciliation. Medications in list are what in patient's belongings (filled in [place] on 01/19/25). Both nurse and I tried to talk to patient via couture alterations dressmaker but couldn't confirm with pt if she is still taking valproic acid. Dr. Abreu was made aware of the problem and wants to hold valproic acid since it cannot be confirmed.
[2025-05-06] MEDS: diazePAM 10 MG/2 ML CARTRIDGE 2.5 MG IM (23:20)
[2025-05-06] MEDS: OLANZapine 10 MG VIAL IM (23:20)
--- NOTE | 2025-05-06 23:39 | PC.NURSE ---
Patient is paranoid, delusional, attempted to redirect, got more agitated, offered PO meds threw it away, yelling screaming loud and disruptive, security called for support/provider notified/ordered Valium 2.5 mg Im and Olanzapine 10 mg IM/administered as ordered/patient accepted after initial refusal, refused vital signs, will continue to monitor. Patient is assessed by care team with disposition section-12 inpatient bed search, patient is non compliant with meds, behavior unpredictable, mood labile and irritable, will continue to monitor
[2025-05-07] MEDS: Ziprasidone Mesylate 20 MG VIAL IM (00:45)
[2025-05-07] MEDS: QUEtiapine Fumarate 400 MG TABLET PO (02:04)
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
[2025-05-07 06:20] VITALS: RESP 16
--- NOTE | 2025-05-07 07:04 | PC.NURSE ---
Assumed care of patient at 0645, patient appears to be sleeping, respirations even and unlabored, no apparent distress is noted. Continue plan of care for IPLOC
[2025-05-07 14:00] VITALS: RESP 18
--- NOTE | 2025-05-07 17:53 | PC.NURSE ---
Pt awake, provided with new linens, took shower and ate snacks. Now watching TV, calm and cooperative, continuing to refuse vital signs
[2025-05-08] MEDS: QUEtiapine Fumarate 400 MG TABLET PO ×2 (00:03→20:27)
[2025-05-08] MEDS: Valproic Acid Liquid 250 MG/5 ML SOLUTION 500 MG PO ×3 (00:03→20:26)
[2025-05-08] MEDS: hydrOXYzine HCL 25 MG TABLET PO (00:04)
--- NOTE | 2025-05-08 00:07 | PC.NURSE ---
pt awake to use the bathroom, calm and cooperative at this time, took medication and vitals obtained.
[2025-05-08 00:08] VITALS: BP 131/84; PULSE 74; RESP 16; TEMP 37.1; O2SAT 100
[2025-05-08 06:26] VITALS: RESP 16
--- NOTE | 2025-05-08 07:07 | PC.NURSE ---
This Rn assumed care of patient @ 0700. Patient currently sleeping in bed. Patient will remain as an inpatient bedsearch.
[2025-05-08] MEDS: QUEtiapine Fumarate 200 MG TABLET PO (08:48)
[2025-05-08 15:00] VITALS: BP 125/81; PULSE 84; TEMP 36.4; O2SAT 99; BMI 31.5
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
[2025-05-08 20:00] VITALS: BP 109/63; PULSE 101; RESP 16; TEMP 36.4; O2SAT 96
--- NOTE | 2025-05-08 22:50 | PC.NURSE ---
Patient refused Atarax 25mg at bedtime, provider was notified.
[2025-05-09 07:58] VITALS: BP 100/60; PULSE 71; RESP 18; TEMP 36.9; O2SAT 97
[2025-05-09] MEDS: QUEtiapine Fumarate 200 MG TABLET PO (08:57)
[2025-05-09] MEDS: Valproic Acid Liquid 250 MG/5 ML SOLUTION 500 MG PO ×2 (08:57→22:17)
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
[2025-05-09 20:00] VITALS: BP 126/86; PULSE 88; TEMP 36.4; O2SAT 97
[2025-05-09] MEDS: QUEtiapine Fumarate 400 MG TABLET PO (22:16)
[2025-05-09] MEDS: Acetaminophen 325 MG TABLET 650 MG PO (22:25)
[2025-05-09] MEDS: Temazepam 15 MG CAPSULE 30 MG PO (22:26)
[2025-05-10 08:36] LABS: Estimated Average Glucose 108 mg/dL; Hemoglobin A1c % 5.4 % (<6.0)
[2025-05-10 08:41] LABS: Valproate 74.1 mcg/mL (50.0-100.0)
[2025-05-10] MEDS: Valproic Acid Liquid 250 MG/5 ML SOLUTION 500 MG PO ×2 (08:45→20:54)
[2025-05-10] MEDS: QUEtiapine Fumarate 200 MG TABLET PO (08:46)
[2025-05-10 08:47] VITALS: BP 109/58; PULSE 69; RESP 18; TEMP 36.5; O2SAT 95
[2025-05-10 08:51] LABS: Cholesterol 169 mg/dL (<200); HDL Cholesterol 47 mg/dL (>40); LDL Cholesterol Calculated 91 mg/dL (<100); Magnesium 1.9 mg/dL (1.6-2.6); Triglycerides 155 mg/dL (<150)
[2025-05-10 09:01] LABS: Free T4 (Free Thyroxine) 0.95 ng/dL (0.71-1.85); Thyroid Stimulating Hormone 3.15 uIU/mL (0.32-4.0)
[2025-05-10 09:12] LABS: Vitamin B12 696 pg/mL (200-900)
[2025-05-10] MEDS: clonazePAM 1 MG TABLET PO ×2 (11:17→20:52)
--- NOTE | 2025-05-10 12:05 | P.PNPSI_ITS ---
Subjective Subjective Date of Service: 05/10/25 Reason For Visit: Schizoaffective disorder, bipolar type Subjective Notes: Conditional Voluntary Healthcare Proxy: No Guardianship: No Medical Problems Affecting Mental Status: No Interim History: Non compliant with some of her regime Managable behavior on the unit. Asks that we find her a usp, however, she declined [facility] services in community. Not wanting to return to family. Medication Compliance: Intermittent Side effects from medications: No Attending Groups: No Review of Systems Acute medical concerns: No Review of Systems Review of Systems Chronic shoulder pain Chroic visual issues Mental Status Exam Mental Status Exam Patient Appearance: Appropriate Patient Orientation: Person, Place, Time and Situation Level of Consciousness: Alert Patient Behavior: Talkative, Hyperactive, Cooperative, Anxious, Distractible and Good Eye Contact Mood Description: Labile Affect Description: Labile Patient Cognition Impaired: No Ability to Follow Directions: Good Speech Pattern: Spontaneous Speech Memory Description: Episodic Impaired Delusions: Paranoid Ideation, Grandiose and Present Perceptual Disturbances: Derealization Thought Process: Racing, Illogical, Distracted and Rumination Thought Content: positive for Circumstantial, positive for Perseveration, positive for Preoccupation and positive for Homicidal Ideation Depressive Symptoms: Increased Irritability and Changes in Appetite Judgement: Poor Diagnostics Vital Signs (24Hr): Vital Signs - 24 hr 05/09/25 20:00 05/10/25 08:47 Temperature 97.6 F 97.7 F Pulse Rate 88 69 Respiratory Rate 18 Blood Pressure 126/86 109/58 L Pulse Oximetry 97 95 Oxygen Delivery Method Room Air Room Air BMI result Body Mass Index 31.5 Labs 05/05/25 21:23 05/05/25 21:23 Labs: Laboratory Results - last 48 hr 05/10/25 05/10/25 08:09 08:10 Estimat Average Glucose 108 Hemoglobin A1c % 5.4 Magnesium 1.9 Triglycerides 155 H Cholesterol 169 LDL Cholesterol, Calc 91 HDL Cholesterol 47 Vitamin B12 696 Folate 10.0 TSH 3.15 Free T4 0.95 Valproic Acid 74.1 Medications Medications Current Medications Acetaminophen (Acetaminophen 325 Mg Tablet) 650 mg PO Q6H PRN PRN Reason: Headache/Pain, Scale 1-10 Last Admin: 05/09/25 22:25 Dose: 650 mg Al Hydroxide/Mg Hydroxide (Magnesium Hydrox/Alum Hydrox 30 Ml Oral.Susp) 30 ml PO Q6H PRN PRN Reason: Heartburn/Nausea Artificial Tears (Artificial Tears 15 Ml Drops) 2 drop EYE-BOTH Q4H PRN PRN Reason: irritation Clonazepam (Clonazepam 1 Mg Tablet) 1 mg PO BID PRN PRN Reason: Anxiety Last Admin: 05/10/25 11:17 Dose: 1 mg Hydroxyzine HCl (Hydroxyzine Hcl 25 Mg Tablet) 25 mg PO BEDTIME COUNT INCLUDES [facility] Last Admin: 05/09/25 22:27 Dose: Not Given Levothyroxine Sodium (Levothyroxine Sodium 50 Mcg Tablet) 50 mcg PO DAILY@0600 [facility]CLUD[facility] Last Admin: 05/10/25 06:56 Dose: Not Given Magnesium Hydroxide (Milk Of Magnesia 30 Ml Oral.Susp) 30 ml PO DAILY PRN PRN Reason: Constipation Nicotine Polacrilex (Nicotine Polacrilex 2 Mg Gum) 4 mg BUCCAL Q2H PRN PRN Reason: Nicotine Cravings Olanzapine (Olanzapine 5 Mg Tablet) 5 mg PO Q4H PRN PRN Reason: agitation Quetiapine Fumarate (Quetiapine Fumarate 200 Mg Tablet) 200 mg PO DAILY COUNT INCLUDES [facility] Last Admin: 05/10/25 08:46 Dose: 200 mg Quetiapine Fumarate (Quetiapine Fumarate 400 Mg Tablet) 400 mg PO BEDTIME COUNT [facility]CLUDES [facility] Last Admin: 05/09/25 22:16 Dose: 400 mg Sertraline HCl (Sertraline Hcl 50 Mg Tablet) 50 mg PO DAILY COUNT [facility]CLUD[facility] Last Admin: 05/10/25 08:47 Dose: Not Given Temazepam (Temazepam 15 Mg Capsule) 30 mg PO BEDTIME PRN PRN Reason: Insomnia Last Admin: 05/09/25 22:26 Dose: 30 mg Valproic Acid (Valproic Acid Liquid 250 Mg/5 Ml Solution) 500 mg PO BID COUNT [facility]CLUD[facility] Last Admin: 05/10/25 08:45 Dose: 500 mg Allergies Allergies Allergy/AdvReac Type Severity Reaction Status Date / Time haloperidol (From HALDOL) Allergy Intermediate LOWERS Verified 05/05/25 20:56 HEART RATE trazodone AdvReac Intermediate Hives Verified 05/05/25 20:56 Assessment & Plan Assessment & Plan (1) Schizoaffective disorder: Qualifiers: Schizoaffective disorder type: unspecified Qualified Code(s): F25.9 - Schizoaffective disorder, unspecified Status: Acute Code(s): F25.9 - Schizoaffective disorder, unspecified (2) Chronic post-traumatic stress disorder (PTSD): Status: Acute Code(s): F43.12 - Post-traumatic stress disorder, chronic (3) Polysubstance use disorder: Status: Acute Code(s): F19.90 - Other psychoactive substance use, unspecified, uncomplicated Plan 05/10/25- Continue tx Reason for continued inpatient stay Substantial Risk for: rapid decompensation Time Spent With Patient Time: Total time managing care of this patient today ____ minutes.
[2025-05-10 20:00] VITALS: BP 129/61; PULSE 79; RESP 18; TEMP 36.8; O2SAT 97
[2025-05-10] MEDS: QUEtiapine Fumarate 400 MG TABLET PO (20:53)
[2025-05-10] MEDS: Temazepam 15 MG CAPSULE 30 MG PO (20:53)
[2025-05-11 07:00] VITALS: BMI 33.0
[2025-05-11 08:00] VITALS: BP 111/79; PULSE 90; RESP 18; TEMP 36.3; O2SAT 98
[2025-05-11] MEDS: QUEtiapine Fumarate 200 MG TABLET PO (08:05)
[2025-05-11] MEDS: Valproic Acid Liquid 250 MG/5 ML SOLUTION 500 MG PO (08:05)
[2025-05-11] MEDS: clonazePAM 1 MG TABLET PO (08:18)
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
[2025-05-11] MEDS: Lidocaine 4 % Patch ADH..PATCH 1 PATCH TRANSDERMA (12:53)
[2025-05-11 20:00] VITALS: BP 128/72; PULSE 97; RESP 16; TEMP 36.2; O2SAT 98
[2025-05-11] MEDS: Valproic Acid Liquid 250 MG/5 ML SOLUTION 750 MG PO (20:56)
[2025-05-11] MEDS: QUEtiapine Fumarate 400 MG TABLET PO (20:56)
[2025-05-11] MEDS: Temazepam 15 MG CAPSULE 30 MG PO (21:00)
[2025-05-12 08:00] VITALS: BP 120/76; PULSE 77; TEMP 36.3; O2SAT 98
[2025-05-12] MEDS: Lidocaine 4 % Patch ADH..PATCH 1 PATCH TRANSDERMA (08:38)
[2025-05-12] MEDS: Valproic Acid Liquid 250 MG/5 ML SOLUTION 750 MG PO ×2 (08:40→21:33)
[2025-05-12] MEDS: QUEtiapine Fumarate 200 MG TABLET PO (08:41)
--- NOTE | 2025-05-12 15:18 | HO.PSYCHPN ---
Subjective Subjective Date of Service: 05/12/25 Reason For Visit: Schizoaffective disorder, bipolar type Subjective Notes: Conditional Voluntary Healthcare Proxy: No Guardianship: No Medical Problems Affecting Mental Status: No Interim History: Pt calm, non agitated in milieu. No discussion with tw today regarding HI. Declined issues to meet over today. Listening to music. Partial compliance with meds. Refused levothyroxine, sertraline, hydroxyzine Continues to ask for halfway placement. Discussed with team Medication Compliance: Intermittent Side effects from medications: No Attending Groups: Intermittent Review of Systems Acute medical concerns: No Medical Review of Systems: unchanged Review of Systems Review of Systems Denies Mental Status Exam Mental Status Exam Narrative: calmer today Patient Appearance: Appropriate Patient Orientation: Person, Place, Time and Situation Level of Consciousness: Alert Patient Behavior: Talkative, Hyperactive, Cooperative, Anxious, Distractible and Good Eye Contact Mood Description: Labile Affect Description: Labile Patient Cognition Impaired: No Ability to Follow Directions: Good Speech Pattern: Spontaneous Speech Memory Description: Episodic Impaired Delusions: Paranoid Ideation, Grandiose and Present Perceptual Disturbances: Derealization Thought Process: Racing, Illogical, Distracted and Rumination Thought Content: positive for Circumstantial, positive for Perseveration, positive for Preoccupation and positive for Homicidal Ideation Depressive Symptoms: Increased Irritability and Changes in Appetite Judgement: Poor Diagnostics Vital Signs (24Hr): Vital Signs - 24 hr 05/11/25 20:00 05/12/25 08:00 Temperature 97.2 F 97.3 F Pulse Rate 97 77 Respiratory Rate 16 Blood Pressure 128/72 120/76 Pulse Oximetry 98 98 Oxygen Delivery Method Room Air Room Air BMI result Body Mass Index 33.0 Labs 05/05/25 21:23 05/05/25 21:23 Medications Medications Current Medications Acetaminophen (Acetaminophen 325 Mg Tablet) 650 mg PO Q6H PRN PRN Reason: Headache/Pain, Scale 1-10 Last Admin: 05/09/25 22:25 Dose: 650 mg Al Hydroxide/Mg Hydroxide (Magnesium Hydrox/Alum Hydrox 30 Ml Oral.Susp) 30 ml PO Q6H PRN PRN Reason: Heartburn/Nausea Artificial Tears (Artificial Tears 15 Ml Drops) 2 drop EYE-BOTH Q4H PRN PRN Reason: irritation Benztropine Mesylate (Benztropine Mesylate 0.5 Mg Tablet) 0.5 mg PO BID PRN PRN Reason: EPS Clonazepam (Clonazepam 1 Mg Tablet) 1 mg PO BID PRN PRN Reason: Anxiety Last Admin: 05/11/25 08:18 Dose: 1 mg Hydroxyzine HCl (Hydroxyzine Hcl 25 Mg Tablet) 25 mg PO BEDTIME [facility] Last Admin: 05/11/25 21:08 Dose: Not Given Levothyroxine Sodium (Levothyroxine Sodium 50 Mcg Tablet) 50 mcg PO DAILY@0600 [facility] Last Admin: 05/12/25 06:19 Dose: Not Given Lidocaine (Lidocaine 4 % Patch Adh..Patch) 1 patch TRANSDERMA DAILY [facility]; Protocol Last Admin: 05/12/25 08:38 Dose: 1 patch Magnesium Hydroxide (Milk Of Magnesia 30 Ml Oral.Susp) 30 ml PO DAILY PRN PRN Reason: Constipation Nicotine Polacrilex (Nicotine Polacrilex 2 Mg Gum) 4 mg BUCCAL Q2H PRN PRN Reason: Nicotine Cravings Olanzapine (Olanzapine 5 Mg Tablet) 5 mg PO Q4H PRN PRN Reason: agitation Quetiapine Fumarate (Quetiapine Fumarate 200 Mg Tablet) 200 mg PO DAILY [facility] Last Admin: 05/12/25 08:41 Dose: 200 mg Quetiapine Fumarate (Quetiapine Fumarate 400 Mg Tablet) 400 mg PO BEDTIME [facility] Last Admin: 05/11/25 20:56 Dose: 400 mg Sertraline HCl (Sertraline Hcl 50 Mg Tablet) 50 mg PO DAILY [facility] Last Admin: 05/12/25 08:47 Dose: Not Given Temazepam (Temazepam 15 Mg Capsule) 30 mg PO BEDTIME PRN PRN Reason: Insomnia Last Admin: 05/11/25 21:00 Dose: 30 mg Valproic Acid (Valproic Acid Liquid 250 Mg/5 Ml Solution) 750 mg PO BID [facility] Last Admin: 05/12/25 08:40 Dose: 750 mg Allergies Allergies Allergy/AdvReac Type Severity Reaction Status Date / Time haloperidol (From HALDOL) Allergy Intermediate LOWERS Verified 05/05/25 20:56 HEART RATE trazodone AdvReac Intermediate Hives Verified 05/05/25 20:56 Assessment & Plan Assessment & Plan (1) Schizoaffective disorder: Qualifiers: Schizoaffective disorder type: unspecified Qualified Code(s): F25.9 - Schizoaffective disorder, unspecified Status: Acute Code(s): F25.9 - Schizoaffective disorder, unspecified (2) Chronic post-traumatic stress disorder (PTSD): Status: Acute Code(s): F43.12 - Post-traumatic stress disorder, chronic (3) Polysubstance use disorder: Status: Acute Code(s): F19.90 - Other psychoactive substance use, unspecified, uncomplicated Plan Admit, CV, 15 minute checks Encourage milieu participation Diagnostics as needed Collateral contact Re-establish med regime with titration. Pt had DMH services from last admit. She did not follow up and told them she did not want them. We will need to assess if she can re-establish these as she asks for help being admitted to a halfway. 05/11: Increase Valproate Benztropine prn 05/12: Continue tx Reason for continued inpatient stay Substantial Risk for: rapid decompensation Time Spent With Patient Time: Total time managing care of this patient today ____ minutes.
[2025-05-12 20:00] VITALS: BP 116/71; PULSE 110; TEMP 36.2; O2SAT 97
[2025-05-12] MEDS: QUEtiapine Fumarate 400 MG TABLET PO (21:29)
[2025-05-12] MEDS: Temazepam 15 MG CAPSULE 30 MG PO (21:31)
--- NOTE | 2025-05-13 05:57 | HO.PSYCHPN ---
Subjective Subjective Date of Service: 05/13/25 Reason For Visit: Schizoaffective disorder, bipolar type Interim History: Pt seen in [facility] and discussed with the team .Reports nightmares and poor sleep. Planning DC around 05/23 to go to [place] to stay with friends. Discussed concerns about this-pt reports she knows several people from [place] and will implement her decision. Pt would like a usp, however, is chronically treatment non compliant and has dismissed [facility] after recent discharge, thus needing to be more independent in her community with her decision making. She reports understanding of this. Medication Compliance: Intermittent Side effects from medications: No Attending Groups: No Review of Systems Acute medical concerns: No Review of Systems Review of Systems Denies Mental Status Exam Mental Status Exam Patient Appearance: Appropriate Patient Orientation: Person, Place, Time and Situation Level of Consciousness: Alert Patient Behavior: Talkative, Cooperative, Distractible and Good Eye Contact Mood Description: Labile Affect Description: Labile Patient Cognition Impaired: No Ability to Follow Directions: Good Speech Pattern: Spontaneous Speech Memory Description: Episodic Impaired Delusions: Paranoid Ideation, Grandiose and Present Perceptual Disturbances: Derealization Thought Process: Racing, Illogical, Distracted and Rumination Thought Content: positive for Circumstantial, positive for Perseveration, positive for Preoccupation and positive for Homicidal Ideation (does make threats at times. Team reports no history) Depressive Symptoms: Increased Irritability and Changes in Appetite Judgement: Poor Diagnostics Vital Signs (24Hr): Vital Signs - 24 hr 05/12/25 08:00 05/12/25 20:00 Temperature 97.3 F 97.1 F Pulse Rate 77 110 H Blood Pressure 120/76 116/71 Pulse Oximetry 98 97 Oxygen Delivery Method Room Air Room Air BMI result Body Mass Index 33.0 Labs 05/05/25 21:23 05/05/25 21:23 Medications Medications Current Medications Acetaminophen (Acetaminophen 325 Mg Tablet) 650 mg PO Q6H PRN PRN Reason: Headache/Pain, Scale 1-10 Last Admin: 05/09/25 22:25 Dose: 650 mg Al Hydroxide/Mg Hydroxide (Magnesium Hydrox/Alum Hydrox 30 Ml Oral.Susp) 30 ml PO Q6H PRN PRN Reason: Heartburn/Nausea Artificial Tears (Artificial Tears 15 Ml Drops) 2 drop EYE-BOTH Q4H PRN PRN Reason: irritation Benztropine Mesylate (Benztropine Mesylate 0.5 Mg Tablet) 0.5 mg PO BID PRN PRN Reason: EPS Clonazepam (Clonazepam 1 Mg Tablet) 1 mg PO BID PRN PRN Reason: Anxiety Last Admin: 05/11/25 08:18 Dose: 1 mg Hydroxyzine HCl (Hydroxyzine Hcl 25 Mg Tablet) 25 mg PO BEDTIME [facility] Last Admin: 05/12/25 21:38 Dose: Not Given Levothyroxine Sodium (Levothyroxine Sodium 50 Mcg Tablet) 50 mcg PO DAILY@0600 [facility] Last Admin: 05/12/25 06:19 Dose: Not Given Lidocaine (Lidocaine 4 % Patch Adh..Patch) 1 patch TRANSDERMA DAILY [facility]; Protocol Last Admin: 05/12/25 08:38 Dose: 1 patch Magnesium Hydroxide (Milk Of Magnesia 30 Ml Oral.Susp) 30 ml PO DAILY PRN PRN Reason: Constipation Nicotine Polacrilex (Nicotine Polacrilex 2 Mg Gum) 4 mg BUCCAL Q2H PRN PRN Reason: Nicotine Cravings Olanzapine (Olanzapine 5 Mg Tablet) 5 mg PO Q4H PRN PRN Reason: agitation Quetiapine Fumarate (Quetiapine Fumarate 200 Mg Tablet) 200 mg PO DAILY [facility] Last Admin: 05/12/25 08:41 Dose: 200 mg Quetiapine Fumarate (Quetiapine Fumarate 400 Mg Tablet) 400 mg PO BEDTIME [facility] Last Admin: 05/12/25 21:29 Dose: 400 mg Sertraline HCl (Sertraline Hcl 50 Mg Tablet) 50 mg PO DAILY [facility] Last Admin: 05/12/25 08:47 Dose: Not Given Temazepam (Temazepam 15 Mg Capsule) 30 mg PO BEDTIME PRN PRN Reason: Insomnia Last Admin: 05/12/25 21:31 Dose: 30 mg Valproic Acid (Valproic Acid Liquid 250 Mg/5 Ml Solution) 750 mg PO BID [facility] Last Admin: 05/12/25 21:33 Dose: 750 mg Allergies Allergies Allergy/AdvReac Type Severity Reaction Status Date / Time haloperidol (From HALDOL) Allergy Intermediate LOWERS Verified 05/05/25 20:56 HEART RATE trazodone AdvReac Intermediate Hives Verified 05/05/25 20:56 Assessment & Plan Assessment & Plan (1) Schizoaffective disorder: Qualifiers: Schizoaffective disorder type: unspecified Qualified Code(s): F25.9 - Schizoaffective disorder, unspecified Status: Acute Code(s): F25.9 - Schizoaffective disorder, unspecified (2) Chronic post-traumatic stress disorder (PTSD): Status: Acute Code(s): F43.12 - Post-traumatic stress disorder, chronic (3) Polysubstance use disorder: Status: Acute Code(s): F19.90 - Other psychoactive substance use, unspecified, uncomplicated Plan Admit, CV, 15 minute checks Encourage milieu participation Diagnostics as needed Collateral contact Re-establish med regime with titration. Pt had DMH services from last admit. She did not follow up and told them she did not want them. We will need to assess if she can re-establish these as she asks for help being admitted to a usp. 05/11: Increase Valproate Benztropine prn 05/12: Continue tx 05/13: DC Planning Reason for continued inpatient stay Substantial Risk for: rapid decompensation Time Spent With Patient Time: Total time managing care of this patient today ____ minutes.
[2025-05-13] MEDS: QUEtiapine Fumarate 200 MG TABLET PO (08:27)
[2025-05-13] MEDS: Valproic Acid Liquid 250 MG/5 ML SOLUTION 750 MG PO ×2 (08:27→20:35)
[2025-05-13] MEDS: clonazePAM 1 MG TABLET PO ×2 (08:31→20:37)
[2025-05-13 08:44] VITALS: BP 112/69; PULSE 76; RESP 18; TEMP 36.8; O2SAT 98
[2025-05-13] MEDS: Lidocaine 4 % Patch ADH..PATCH 1 PATCH TRANSDERMA (10:11)
[2025-05-13 20:00] VITALS: BP 139/77; PULSE 91; RESP 16; TEMP 36.7; O2SAT 96
[2025-05-13] MEDS: Acetaminophen 325 MG TABLET 650 MG PO (20:33)
[2025-05-13] MEDS: QUEtiapine Fumarate 400 MG TABLET PO (20:34)
[2025-05-13] MEDS: Temazepam 15 MG CAPSULE 30 MG PO (23:53)
--- NOTE | 2025-05-14 05:31 | HO.PSYCHPN ---
Subjective Subjective Date of Service: 05/14/25 Reason For Visit: Schizoaffective disorder, bipolar type Interim History: Visable in milieu. No behavioral issues of concern. Interactive. Accepting of some of her medications Planning DC Medication Compliance: Intermittent Side effects from medications: No Attending Groups: No Review of Systems Acute medical concerns: No Review of Systems Review of Systems Denies Mental Status Exam Mental Status Exam Patient Appearance: Appropriate Patient Orientation: Person, Place, Time and Situation Level of Consciousness: Alert Patient Behavior: Talkative, Cooperative, Distractible and Good Eye Contact Mood Description: Labile Affect Description: Labile Patient Cognition Impaired: No Ability to Follow Directions: Good Speech Pattern: Spontaneous Speech Memory Description: Episodic Impaired Delusions: Paranoid Ideation, Grandiose and Present Perceptual Disturbances: Derealization Thought Process: Racing, Illogical, Distracted and Rumination Thought Content: positive for Circumstantial, positive for Perseveration, positive for Preoccupation and positive for Homicidal Ideation (does make threats at times. Team reports no history) Depressive Symptoms: Increased Irritability and Changes in Appetite Judgement: Poor Diagnostics Vital Signs (24Hr): Vital Signs - 24 hr 05/13/25 08:44 05/13/25 20:00 Temperature 98.2 F 98.1 F Pulse Rate 76 91 Respiratory Rate 18 16 Blood Pressure 112/69 139/77 Pulse Oximetry 98 96 Oxygen Delivery Method Room Air Room Air BMI result Body Mass Index 33.0 Labs 05/05/25 21:23 05/05/25 21:23 Medications Medications Current Medications Acetaminophen (Acetaminophen 325 Mg Tablet) 650 mg PO Q6H PRN PRN Reason: Headache/Pain, Scale 1-10 Last Admin: 05/13/25 20:33 Dose: 650 mg Al Hydroxide/Mg Hydroxide (Magnesium Hydrox/Alum Hydrox 30 Ml Oral.Susp) 30 ml PO Q6H PRN PRN Reason: Heartburn/Nausea Artificial Tears (Artificial Tears 15 Ml Drops) 2 drop EYE-BOTH Q4H PRN PRN Reason: irritation Benztropine Mesylate (Benztropine Mesylate 0.5 Mg Tablet) 0.5 mg PO BID PRN PRN Reason: EPS Clonazepam (Clonazepam 1 Mg Tablet) 1 mg PO BID PRN PRN Reason: Anxiety Last Admin: 05/13/25 20:37 Dose: 1 mg Hydroxyzine HCl (Hydroxyzine Hcl 25 Mg Tablet) 25 mg PO BEDTIME [facility] Last Admin: 05/13/25 22:02 Dose: Not Given Levothyroxine Sodium (Levothyroxine Sodium 50 Mcg Tablet) 50 mcg PO DAILY@0600 [facility] Last Admin: 05/13/25 08:34 Dose: Not Given Lidocaine (Lidocaine 4 % Patch Adh..Patch) 1 patch TRANSDERMA DAILY [facility]; Protocol Last Admin: 05/13/25 10:11 Dose: 1 patch Magnesium Hydroxide (Milk Of Magnesia 30 Ml Oral.Susp) 30 ml PO DAILY PRN PRN Reason: Constipation Nicotine Polacrilex (Nicotine Polacrilex 2 Mg Gum) 4 mg BUCCAL Q2H PRN PRN Reason: Nicotine Cravings Olanzapine (Olanzapine 5 Mg Tablet) 5 mg PO Q4H PRN PRN Reason: agitation Quetiapine Fumarate (Quetiapine Fumarate 200 Mg Tablet) 200 mg PO DAILY [facility] Last Admin: 05/13/25 08:27 Dose: 200 mg Quetiapine Fumarate (Quetiapine Fumarate 400 Mg Tablet) 400 mg PO BEDTIME [facility] Last Admin: 05/13/25 20:34 Dose: 400 mg Sertraline HCl (Sertraline Hcl 50 Mg Tablet) 50 mg PO DAILY [facility] Last Admin: 05/13/25 08:34 Dose: Not Given Temazepam (Temazepam 15 Mg Capsule) 30 mg PO BEDTIME PRN PRN Reason: Insomnia Last Admin: 05/13/25 23:53 Dose: 30 mg Valproic Acid (Valproic Acid Liquid 250 Mg/5 Ml Solution) 750 mg PO BID [facility] Last Admin: 05/13/25 20:35 Dose: 750 mg Allergies Allergies Allergy/AdvReac Type Severity Reaction Status Date / Time haloperidol (From HALDOL) Allergy Intermediate LOWERS Verified 05/05/25 20:56 HEART RATE trazodone AdvReac Intermediate Hives Verified 05/05/25 20:56 Assessment & Plan Assessment & Plan (1) Schizoaffective disorder: Qualifiers: Schizoaffective disorder type: unspecified Qualified Code(s): F25.9 - Schizoaffective disorder, unspecified Status: Acute Code(s): F25.9 - Schizoaffective disorder, unspecified (2) Chronic post-traumatic stress disorder (PTSD): Status: Acute Code(s): F43.12 - Post-traumatic stress disorder, chronic (3) Polysubstance use disorder: Status: Acute Code(s): F19.90 - Other psychoactive substance use, unspecified, uncomplicated Plan Admit, CV, 15 minute checks Encourage milieu participation Diagnostics as needed Collateral contact Re-establish med regime with titration. Pt had DMH services from last admit. She did not follow up and told them she did not want them. We will need to assess if she can re-establish these as she asks for help being admitted to a fdc. 05/11: Increase Valproate Benztropine prn 05/12: Continue tx 05/14: Continue tx Reason for continued inpatient stay Substantial Risk for: rapid decompensation Time Spent With Patient Time: Total time managing care of this patient today ____ minutes.
[2025-05-14] MEDS: Levothyroxine Sodium 50 MCG TABLET PO (06:25)
[2025-05-14 08:00] VITALS: BP 106/58; PULSE 76; RESP 18; TEMP 36.8; O2SAT 98
[2025-05-14] MEDS: QUEtiapine Fumarate 200 MG TABLET PO (08:53)
[2025-05-14] MEDS: Valproic Acid Liquid 250 MG/5 ML SOLUTION 750 MG PO ×2 (08:53→21:20)
[2025-05-14] MEDS: Lidocaine 4 % Patch ADH..PATCH 1 PATCH TRANSDERMA (11:58)
[2025-05-14 19:47] VITALS: BP 127/69; PULSE 102; RESP 16; TEMP 36.3; O2SAT 94
[2025-05-14] MEDS: clonazePAM 1 MG TABLET PO (21:20)
[2025-05-14] MEDS: QUEtiapine Fumarate 400 MG TABLET PO (21:20)
[2025-05-14] MEDS: Temazepam 15 MG CAPSULE 30 MG PO (21:26)
[2025-05-14] MEDS: Acetaminophen 325 MG TABLET 650 MG PO (21:32)
--- NOTE | 2025-05-15 03:31 | PC.NURSE ---
Patient refused H.S. scheduled Hydroxyzine because she said it makes my feet itch .
[2025-05-15] MEDS: Levothyroxine Sodium 50 MCG TABLET PO (07:42)
[2025-05-15 07:56] VITALS: BP 115/55; PULSE 79; RESP 20; TEMP 36.1; O2SAT 98
[2025-05-15] MEDS: Valproic Acid Liquid 250 MG/5 ML SOLUTION 750 MG PO ×2 (09:16→20:11)
[2025-05-15] MEDS: QUEtiapine Fumarate 200 MG TABLET PO (09:17)
[2025-05-15] MEDS: Lidocaine 4 % Patch ADH..PATCH 1 PATCH TRANSDERMA (09:22)
[2025-05-15] MEDS: clonazePAM 1 MG TABLET PO ×2 (10:15→20:16)
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
[2025-05-15 20:00] VITALS: BP 125/78; PULSE 94; RESP 20; TEMP 36.7; O2SAT 96
[2025-05-15] MEDS: hydrOXYzine HCL 25 MG TABLET PO (20:12)
[2025-05-15] MEDS: QUEtiapine Fumarate 100 MG TABLET 500 MG PO (20:12)
[2025-05-15] MEDS: Acetaminophen 325 MG TABLET 650 MG PO (20:14)
[2025-05-15] MEDS: Temazepam 15 MG CAPSULE 30 MG PO (20:16)
[2025-05-16] MEDS: Levothyroxine Sodium 50 MCG TABLET PO (06:07)
[2025-05-16 07:51] VITALS: BP 120/77; PULSE 75; RESP 18; TEMP 36.3; O2SAT 97
[2025-05-16] MEDS: QUEtiapine Fumarate 200 MG TABLET PO (08:37)
[2025-05-16] MEDS: Valproic Acid Liquid 250 MG/5 ML SOLUTION 750 MG PO ×2 (08:37→20:43)
[2025-05-16] MEDS: Lidocaine 4 % Patch ADH..PATCH 1 PATCH TRANSDERMA (08:38)
--- NOTE | 2025-05-16 11:02 | P.PNPSI_ITS ---
Subjective Subjective Date of Service: 05/16/25 Reason For Visit: Schizoaffective disorder, bipolar type Subjective Notes: Conditional Voluntary Healthcare Proxy: No Guardianship: No Medical Problems Affecting Mental Status: No Interim History: Met with pt, protection specialist. Prepared for DC. Reviewed conflicts with the children, plan to go to [place] next week, and will stay at a correction prior to leaving for [place]. Reviewed what meds she will accept and that she will refuse levothyroxine and sertraline. Medication Compliance: Intermittent Side effects from medications: No Attending Groups: Intermittent Review of Systems Acute medical concerns: No Review of Systems Review of Systems Denies Mental Status Exam Mental Status Exam Patient Appearance: Appropriate Patient Orientation: Person, Place, Time and Situation Level of Consciousness: Alert Patient Behavior: Talkative, Cooperative, Distractible and Good Eye Contact Mood Description: Labile Affect Description: Labile Patient Cognition Impaired: No Ability to Follow Directions: Good Speech Pattern: Spontaneous Speech Memory Description: Episodic Impaired Delusions: Paranoid Ideation, Grandiose and Present Perceptual Disturbances: Derealization Thought Process: Racing, Illogical, Distracted and Rumination Thought Content: positive for Circumstantial, positive for Perseveration, positive for Preoccupation and positive for Homicidal Ideation (does make threats at times. Team reports no history) Depressive Symptoms: Increased Irritability and Changes in Appetite Judgement: Poor Diagnostics Vital Signs (24Hr): Vital Signs - 24 hr 05/15/25 20:00 05/16/25 07:51 Temperature 98.0 F 97.3 F Pulse Rate 94 75 Respiratory Rate 20 18 Blood Pressure 125/78 120/77 Pulse Oximetry 96 97 Oxygen Delivery Method Room Air Room Air BMI result Body Mass Index 33.0 Labs 05/05/25 21:23 05/05/25 21:23 Medications Medications Current Medications Acetaminophen (Acetaminophen 325 Mg Tablet) 650 mg PO Q6H PRN PRN Reason: Headache/Pain, Scale 1-10 Last Admin: 05/15/25 20:14 Dose: 650 mg Al Hydroxide/Mg Hydroxide (Magnesium Hydrox/Alum Hydrox 30 Ml Oral.Susp) 30 ml PO Q6H PRN PRN Reason: Heartburn/Nausea Artificial Tears (Artificial Tears 15 Ml Drops) 2 drop EYE-BOTH Q4H PRN PRN Reason: irritation Benztropine Mesylate (Benztropine Mesylate 0.5 Mg Tablet) 0.5 mg PO BID PRN PRN Reason: EPS Clonazepam (Clonazepam 1 Mg Tablet) 1 mg PO BID PRN PRN Reason: Anxiety Last Admin: 05/15/25 20:16 Dose: 1 mg Hydroxyzine HCl (Hydroxyzine Hcl 25 Mg Tablet) 25 mg PO BEDTIME [facility] Last Admin: 05/15/25 20:12 Dose: 25 mg Levothyroxine Sodium (Levothyroxine Sodium 50 Mcg Tablet) 50 mcg PO DAILY@0600 [facility] Last Admin: 05/16/25 06:07 Dose: 50 mcg Lidocaine (Lidocaine 4 % Patch Adh..Patch) 1 patch TRANSDERMA DAILY [facility]; Protocol Last Admin: 05/16/25 08:38 Dose: 1 patch Magnesium Hydroxide (Milk Of Magnesia 30 Ml Oral.Susp) 30 ml PO DAILY PRN PRN Reason: Constipation Nicotine Polacrilex (Nicotine Polacrilex 2 Mg Gum) 4 mg BUCCAL Q2H PRN PRN Reason: Nicotine Cravings Olanzapine (Olanzapine 5 Mg Tablet) 5 mg PO Q4H PRN PRN Reason: agitation Quetiapine Fumarate (Quetiapine Fumarate 200 Mg Tablet) 200 mg PO DAILY [facility] Last Admin: 05/16/25 08:37 Dose: 200 mg Quetiapine Fumarate (Quetiapine Fumarate 100 Mg Tablet) 500 mg PO BEDTIME [facility] Last Admin: 05/15/25 20:12 Dose: 500 mg Sertraline HCl (Sertraline Hcl 50 Mg Tablet) 50 mg PO DAILY [facility] Last Admin: 05/16/25 08:39 Dose: Not Given Temazepam (Temazepam 15 Mg Capsule) 30 mg PO BEDTIME PRN PRN Reason: Insomnia Last Admin: 05/15/25 20:16 Dose: 30 mg Valproic Acid (Valproic Acid Liquid 250 Mg/5 Ml Solution) 750 mg PO BID [facility] Last Admin: 05/16/25 08:37 Dose: 750 mg Allergies Allergies Allergy/AdvReac Type Severity Reaction Status Date / Time haloperidol (From HALDOL) Allergy Intermediate LOWERS Verified 05/05/25 20:56 HEART RATE trazodone AdvReac Intermediate Hives Verified 05/05/25 20:56 Assessment & Plan Assessment & Plan (1) Schizoaffective disorder: Qualifiers: Schizoaffective disorder type: unspecified Qualified Code(s): F25.9 - Schizoaffective disorder, unspecified Status: Acute Code(s): F25.9 - Schizoaffective disorder, unspecified (2) Chronic post-traumatic stress disorder (PTSD): Status: Acute Code(s): F43.12 - Post-traumatic stress disorder, chronic (3) Polysubstance use disorder: Status: Acute Code(s): F19.90 - Other psychoactive substance use, unspecified, uncomplicated Plan Admit, CV, 15 minute checks Encourage milieu participation Diagnostics as needed Collateral contact Re-establish med regime with titration. Pt had DMH services from last admit. She did not follow up and told them she did not want them. We will need to assess if she can re-establish these as she asks for help being admitted to a snf. 05/11: Increase Valproate Benztropine prn 05/12: Continue tx 05/15: Increase Seroquel to 500 mg HS Labs in the a.m. 05/16: DC 05/18 Reason for continued inpatient stay Substantial Risk for: rapid decompensation Time Spent With Patient Time: Total time managing care of this patient today ____ minutes.
[2025-05-16 20:00] VITALS: BP 147/72; PULSE 87; RESP 18; TEMP 36.4; O2SAT 99
[2025-05-16] MEDS: QUEtiapine Fumarate 100 MG TABLET 500 MG PO (20:43)
[2025-05-16] MEDS: clonazePAM 1 MG TABLET PO (20:45)
[2025-05-16] MEDS: Temazepam 15 MG CAPSULE 30 MG PO (20:45)
[2025-05-16] MEDS: hydrOXYzine HCL 25 MG TABLET PO (20:45)
[2025-05-16] MEDS: Acetaminophen 325 MG TABLET 650 MG PO (20:46)
[2025-05-17 08:00] VITALS: BP 105/64; PULSE 83; RESP 18; TEMP 36.4; O2SAT 95
[2025-05-17] MEDS: Valproic Acid Liquid 250 MG/5 ML SOLUTION 750 MG PO ×2 (08:16→22:03)
[2025-05-17] MEDS: QUEtiapine Fumarate 200 MG TABLET PO (08:16)
[2025-05-17] MEDS: Lidocaine 4 % Patch ADH..PATCH 1 PATCH TRANSDERMA (08:17)
[2025-05-17 08:19] LABS: Valproate 58.6 mcg/mL (50.0-100.0)
--- NOTE | 2025-05-17 10:19 | HO.PSYCHPN ---
Subjective Subjective Date of Service: 05/17/25 Reason For Visit: Schizoaffective disorder, bipolar type Subjective Notes: Conditional Voluntary Healthcare Proxy: No Guardianship: No Medical Problems Affecting Mental Status: No Interim History: Pt prepared for DC. Reports she has a place to stay locally with a friend and is pleased with this plan. Denies SI,HI,AH, VH. No sx of acute maddison, or psychosis, however psychosis at baseline by history. Pt expressing her contentment with plan and happiness-dancing to music she is listening on headphones this evening. Medication Compliance: Intermittent Side effects from medications: No Attending Groups: No Review of Systems Acute medical concerns: No Review of Systems Review of Systems Shoulder pain-intermittent Mental Status Exam Mental Status Exam Patient Appearance: Appropriate Patient Orientation: Person, Place, Time and Situation Level of Consciousness: Alert Patient Behavior: Talkative, Cooperative, Distractible and Good Eye Contact Mood Description: Labile Affect Description: Labile Patient Cognition Impaired: No Ability to Follow Directions: Good Speech Pattern: Spontaneous Speech Memory Description: Episodic Impaired Delusions: Paranoid Ideation, Grandiose and Present Perceptual Disturbances: Derealization Thought Process: Racing, Illogical, Distracted and Rumination Thought Content: positive for Circumstantial, positive for Perseveration, positive for Preoccupation and positive for Homicidal Ideation (does make threats at times. Team reports no history) Depressive Symptoms: Increased Irritability and Changes in Appetite Judgement: Poor Diagnostics Vital Signs (24Hr): Vital Signs - 24 hr 05/16/25 20:00 05/17/25 08:00 Temperature 97.6 F 97.5 F Pulse Rate 87 83 Respiratory Rate 18 18 Blood Pressure 147/72 H 105/64 Pulse Oximetry 99 95 Oxygen Delivery Method Room Air Room Air BMI result Body Mass Index 33.0 Labs 05/05/25 21:23 05/05/25 21:23 Labs: Laboratory Results - last 48 hr 05/17/25 07:44 Valproic Acid 58.6 Medications Medications Current Medications Acetaminophen (Acetaminophen 325 Mg Tablet) 650 mg PO Q6H PRN PRN Reason: Headache/Pain, Scale 1-10 Last Admin: 05/16/25 20:46 Dose: 650 mg Al Hydroxide/Mg Hydroxide (Magnesium Hydrox/Alum Hydrox 30 Ml Oral.Susp) 30 ml PO Q6H PRN PRN Reason: Heartburn/Nausea Artificial Tears (Artificial Tears 15 Ml Drops) 2 drop EYE-BOTH Q4H PRN PRN Reason: irritation Benztropine Mesylate (Benztropine Mesylate 0.5 Mg Tablet) 0.5 mg PO BID PRN PRN Reason: EPS Clonazepam (Clonazepam 1 Mg Tablet) 1 mg PO BID PRN PRN Reason: Anxiety Last Admin: 05/16/25 20:45 Dose: 1 mg Hydroxyzine HCl (Hydroxyzine Hcl 25 Mg Tablet) 25 mg PO BEDTIME [facility] Last Admin: 05/16/25 20:45 Dose: 25 mg Levothyroxine Sodium (Levothyroxine Sodium 50 Mcg Tablet) 50 mcg PO DAILY@0600 [facility] Last Admin: 05/17/25 06:23 Dose: Not Given Lidocaine (Lidocaine 4 % Patch Adh..Patch) 1 patch TRANSDERMA DAILY [facility]; Protocol Last Admin: 05/17/25 08:17 Dose: 1 patch Magnesium Hydroxide (Milk Of Magnesia 30 Ml Oral.Susp) 30 ml PO DAILY PRN PRN Reason: Constipation Nicotine Polacrilex (Nicotine Polacrilex 2 Mg Gum) 4 mg BUCCAL Q2H PRN PRN Reason: Nicotine Cravings Olanzapine (Olanzapine 5 Mg Tablet) 5 mg PO Q4H PRN PRN Reason: agitation Quetiapine Fumarate (Quetiapine Fumarate 200 Mg Tablet) 200 mg PO DAILY [facility] Last Admin: 05/17/25 08:16 Dose: 200 mg Quetiapine Fumarate (Quetiapine Fumarate 100 Mg Tablet) 500 mg PO BEDTIME [facility] Last Admin: 05/16/25 20:43 Dose: 500 mg Sertraline HCl (Sertraline Hcl 50 Mg Tablet) 50 mg PO DAILY [facility] Last Admin: 05/17/25 08:27 Dose: Not Given Temazepam (Temazepam 15 Mg Capsule) 30 mg PO BEDTIME PRN PRN Reason: Insomnia Last Admin: 05/16/25 20:45 Dose: 30 mg Valproic Acid (Valproic Acid Liquid 250 Mg/5 Ml Solution) 750 mg PO BID [facility] Last Admin: 05/17/25 08:16 Dose: 750 mg Allergies Allergies Allergy/AdvReac Type Severity Reaction Status Date / Time haloperidol (From HALDOL) Allergy Intermediate LOWERS Verified 05/05/25 20:56 HEART RATE trazodone AdvReac Intermediate Hives Verified 05/05/25 20:56 Assessment & Plan Assessment & Plan (1) Schizoaffective disorder: Qualifiers: Schizoaffective disorder type: unspecified Qualified Code(s): F25.9 - Schizoaffective disorder, unspecified Status: Acute Code(s): F25.9 - Schizoaffective disorder, unspecified (2) Chronic post-traumatic stress disorder (PTSD): Status: Acute Code(s): F43.12 - Post-traumatic stress disorder, chronic (3) Polysubstance use disorder: Status: Acute Code(s): F19.90 - Other psychoactive substance use, unspecified, uncomplicated Plan Admit, CV, 15 minute checks Encourage milieu participation Diagnostics as needed Collateral contact Re-establish med regime with titration. Pt had [facility] services from last admit. She did not follow up and told them she did not want them. We will need to assess if she can re-establish these as she asks for help being admitted to a [facility]. 05/11: Increase Valproate Benztropine prn 05/12: Continue tx 05/15: Increase Seroquel to 500 mg HS Labs in the a.m. 05/17: DC 05/18 Reason for continued inpatient stay Substantial Risk for: rapid decompensation Time Spent With Patient Time: Total time managing care of this patient today ____ minutes.
[2025-05-17] MEDS: Acetaminophen 325 MG TABLET 650 MG PO (14:40)
[2025-05-17 20:00] VITALS: BP 133/78; PULSE 92; TEMP 36.4; O2SAT 97
[2025-05-17] MEDS: Temazepam 15 MG CAPSULE 30 MG PO (22:01)
[2025-05-17] MEDS: QUEtiapine Fumarate 100 MG TABLET 500 MG PO (22:01)
[2025-05-17] MEDS: hydrOXYzine HCL 25 MG TABLET PO (22:04)
[2025-05-18] MEDS: clonazePAM 1 MG TABLET PO ×2 (01:55→09:34)
[2025-05-18] MEDS: Acetaminophen 325 MG TABLET 650 MG PO (01:57)
--- NOTE | 2025-05-18 05:51 | PM.PSYDC ---
DS: Providers Provider Date of admission: 05/08/25 13:55 Primary care physician: Unknown Physician DS: Diagnosis Discharge Diagnosis (1) Schizoaffective disorder: Status: Acute (2) Chronic post-traumatic stress disorder (PTSD): Status: Acute (3) Polysubstance use disorder: Status: Acute DS: Medications Discharge Medications Home Medications: Previous Rx's ?Medication ?Instructions ?Recorded acetaminophen 325 mg tablet 650 mg (2 x 325 mg) PO Q6H PRN 05/17/25 Headache/Pain, Scale 1-10 #0 tabs clonazepam 1 mg tablet 1 mg PO BID PRN Anxiety #14 tabs 05/17/25 divalproex 250 mg tablet,extended 250 mg PO BID #60 tabs 05/17/25 release 24 hr (Depakote ER) divalproex 500 mg tablet,extended 500 mg PO BID #60 tabs 05/17/25 release 24 hr (Depakote ER) hydroxyzine HCl 25 mg tablet 25 mg PO BEDTIME #30 tabs 05/17/25 quetiapine 100 mg tablet (Seroquel) 100 mg PO BEDTIME #30 tabs 05/17/25 quetiapine 200 mg tablet (Seroquel) 200 mg PO DAILY #30 tabs 05/17/25 quetiapine 400 mg tablet (Seroquel) 400 mg PO BEDTIME #30 tabs 05/17/25 temazepam 30 mg capsule 30 mg PO BEDTIME PRN Insomnia #10 05/17/25 caps Data Data Completed and Pending Completed studies during hospitalization [Text1]: 05/17/25 07:44 Valproic Acid 58.6 DS: Summary Time Spent with Patient Time attestation: Total time managing care of this patient today ____ minutes. Discharge Plan Discharge Anticipated Discharge Date/Time: 05/18/25 12:00 Patient Disposition: Xfer Other Discharge Diagnosis: PTSD Schizoaffective Disorder Polysubstance Use Disorder Referrals: PCP: Dr. Walden ([facility]) [Other] - 06/01/25 1:30 pm Referral Note: Behavioral Health Intake: Yasmine ([facility]) [Other] - 05/23/25 9:00 am Discharge Medications: New acetaminophen 325 mg Tablet 650 mg PO Q6H PRN (Reason: Headache/Pain, Scale 1-10) Qty: 0 0RF clonazepam 1 mg Tablet 1 mg PO BID PRN (Reason: Anxiety) Qty: 14 0RF hydroxyzine HCl 25 mg Tablet 25 mg PO BEDTIME Qty: 30 0RF quetiapine [Seroquel] 400 mg tablet 400 mg PO BEDTIME Qty: 30 0RF Rx Instructions: 500 mg at bedtime quetiapine [Seroquel] 100 mg tablet 100 mg PO BEDTIME Qty: 30 0RF Rx Instructions: Take with 400 mg tablet for a total of 500 mg at bedtime quetiapine [Seroquel] 200 mg tablet 200 mg PO DAILY Qty: 30 0RF divalproex [Depakote ER] 500 mg tablet extended release 24 hr 500 mg PO BID Qty: 60 0RF Rx Instructions: Take 750 mg twice per day divalproex [Depakote ER] 250 mg tablet extended release 24 hr 250 mg PO BID Qty: 60 0RF Rx Instructions: Take 750 mg twice per day Continued temazepam 30 mg Capsule 30 mg PO BEDTIME PRN (Reason: Insomnia) Qty: 10 0RF Discontinued levothyroxine 50 mcg Tablet 50 mcg PO DAILY@0600 Qty: 30 0RF quetiapine [Seroquel] 400 mg tablet 400 mg PO BEDTIME Qty: 30 0RF quetiapine 100 mg tablet 200 mg PO DAILY sertraline 50 mg Tablet 50 mg PO DAILY hydroxyzine HCl 25 mg Tablet 25 mg PO BEDTIME valproic acid (as sodium salt) 250 mg/5 mL solution 500 mg PO BID Discharge Orders: Discharge Order (Routine); Ordered 05/18/25 Ordered By: Mariah Dhaliwal Diet: Advance to usual diet Activity on Discharge: As tolerated Stand Alone Forms: Patient Portal Discharge page Print Language: Macedonian Care Plan Goals: Mood and Behavioral Stabilization Abstinence from Substances Health Concerns: Mood and Behavioral Stabilization Abstinence from Substances Plan of Treatment: Take medications as directed During the hospitalization, pt has asked to discontinue levothyroxine, sertraline and has refused offers to restart these medications. Consider continuing out patient treatment Call/return as needed Assessment: Pt denies SI,HI, AH, VH There are no symptoms of acute psychosis She is in agreement with the plan of care
[2025-05-18] MEDS: Levothyroxine Sodium 50 MCG TABLET PO (06:57)
[2025-05-18 08:00] VITALS: BP 125/68; PULSE 80; TEMP 36.4; O2SAT 97
[2025-05-18] MEDS: Lidocaine 4 % Patch ADH..PATCH 1 PATCH TRANSDERMA (08:53)
[2025-05-18] MEDS: QUEtiapine Fumarate 200 MG TABLET PO (08:53)
[2025-05-18] MEDS: Valproic Acid Liquid 250 MG/5 ML SOLUTION 750 MG PO (08:53)
== END 2025-05-18 11:27 | disposition other institution (70) | DRG 750 ==
LOC: HO.ED 05-08 12:45 → HO.PM5 05-08 13:55
PROVIDERS: Physician Assistant Medical; Admitting Provider Clinical Nurse Specialist Psychiatric/Mental Health, Adult; Emergency Provider Emergency Medicine; Visit Provider Clinical Nurse Specialist Psychiatric/Mental Health, Adult
DX: F25.9 Schizoaffective disorder, unspecified (principal); R45.851 Suicidal ideations; R45.850 Homicidal ideations; F43.12 Post-traumatic stress disorder, chronic; F19.90 Other psychoactive substance use, unspecified, uncomplicated; Z79.899 Other long term (current) drug therapy
CPT/HCPCS: 36415; 80053; 80061; 80143; 80164; 80179; 80307; 81003; 82550; 82607; 82746; 83036; 83735; 84439; 84443; 84702; 85025; 93005; 99285; J2359; J3360; J3486; S9485

== ENCOUNTER → 2025-05-05 21:04 | Outpatient (BNV) | payer MEDICAID, SELFPAY | PROVIDERS: Emergency Provider Emergency Medicine; Visit Provider Internal Medicine Cardiovascular Disease | DX: R07.9 Chest pain, unspecified (principal) | CPT/HCPCS: 93010 ==

== ENCOUNTER → 2025-05-08 13:55 | Outpatient (BNV) | payer OTHER, SELFPAY | PROVIDERS: Admitting Provider Clinical Nurse Specialist Psychiatric/Mental Health, Adult; Emergency Provider Emergency Medicine; Visit Provider Clinical Nurse Specialist Psychiatric/Mental Health, Adult | DX: F25.0 Schizoaffective disorder, bipolar type (principal); F43.12 Post-traumatic stress disorder, chronic; F19.90 Other psychoactive substance use, unspecified, uncomplicated | CPT/HCPCS: 99231; 99232 ==